=== PATIENT | female | born 1960 | race Two or more races ===

== ENCOUNTER → 2020-01-07 10:04 | Outpatient (BNVA) | payer OTHER, SELFPAY | PROVIDERS: Visit Provider Dietitian, Registered | DX: Z76.89 Persons encountering health services in other specified circumstances (principal) ==

== ENCOUNTER → 2020-01-07 10:04 | Outpatient (BNVA) | payer OTHER, SELFPAY | PROVIDERS: Visit Provider Dietitian, Registered | DX: E11.65 Type 2 diabetes mellitus with hyperglycemia (principal); K21.9 Gastro-esophageal reflux disease without esophagitis ==

== ENCOUNTER → 2020-02-26 10:14 | Outpatient (BNVA) | payer OTHER, SELFPAY | PROVIDERS: Visit Provider Internal Medicine Endocrinology, Diabetes & Metabolism | DX: E11.65 Type 2 diabetes mellitus with hyperglycemia (principal); E11.21 Type 2 diabetes mellitus with diabetic nephropathy; E55.9 Vitamin D deficiency, unspecified; E66.9 Obesity, unspecified; I10 Essential (primary) hypertension; M85.80 Other specified disorders of bone density and structure, unspecified site; E78.5 Hyperlipidemia, unspecified; Z79.899 Other long term (current) drug therapy; Z79.84 Long term (current) use of oral hypoglycemic drugs | CPT/HCPCS: Q3014 ==

== ENCOUNTER → 2020-03-09 11:16 | Outpatient (BNVA) | payer OTHER, SELFPAY | PROVIDERS: Visit Provider Dietitian, Registered | DX: Z76.89 Persons encountering health services in other specified circumstances (principal) ==

== ENCOUNTER → 2020-03-12 14:54 | Outpatient (BNVA) | payer OTHER, SELFPAY | PROVIDERS: Visit Provider Nurse Practitioner | DX: K21.9 Gastro-esophageal reflux disease without esophagitis (principal); K59.00 Constipation, unspecified; K31.84 Gastroparesis; F17.210 Nicotine dependence, cigarettes, uncomplicated; Z79.899 Other long term (current) drug therapy; Z79.84 Long term (current) use of oral hypoglycemic drugs | CPT/HCPCS: 99212 ==

== ENCOUNTER 2020-03-17 07:18 | Emergency (ER) | payer OTHER, SELFPAY ==
[2020-03-17 07:22] VITALS: BP 167/77; PULSE 78; RESP 16; TEMP 37.1; O2SAT 98; BMI 29.0
[2020-03-17 08:00] VITALS: BP 139/66; PULSE 77; RESP 18; TEMP 36.9; O2SAT 100
--- NOTE | 2020-03-17 08:01 | ED.GENADULT ---
HPI - General Adult General Chief complaint: General Medical Stated complaint: CONGESTION,BACK PAIN,COUGH Time Seen by Provider: 03/17/20 08:01 Source: patient Mode of arrival: ambulatory Limitations: no limitations History of Present Illness HPI narrative: 4 days of cough and right chest pain. Feels like she has the flu Onset (ago): day(s) Severity: mild Pain Consistency: constant Related Data Home Medications Medication Instructions Recorded Confirmed albuterol sulfate 2.5 mg INHALATION Q4-6H PRN 02/26/20 02/26/20 albuterol sulfate 90 mcg/actuation 2,000,000 mcg PO Q6H PRN 02/26/20 02/26/20 aerosol inhaler blood sugar diagnostic #10 ea 02/26/20 02/26/20 clonazepam 0.5 mg tablet 0.5 mg PO BEDTIME PRN 02/26/20 02/26/20 famotidine 20 mg tablet 20 mg PO BEDTIME PRN 02/26/20 03/12/20 lancets 28 gauge #100 ea 02/26/20 02/26/20 loratadine 10 mg tablet 10 mg PO DAILY PRN 02/26/20 02/26/20 mirabegron 25 mg tablet,extended 25 mg PO DAILY 02/26/20 02/26/20 release 24 hr sertraline 100 mg tablet 0 mg PO 02/26/20 02/26/20 Previous Rx's Medication Instructions Recorded cholecalciferol (vitamin D3) 25 25 mcg PO DAILY 30 Days #30 cap 02/26/20 mcg (1,000 unit) capsule lisinopril 30 mg tablet 30 mg PO DAILY 30 Days #30 tab 02/26/20 metformin 500 mg tablet,extended 1,000 mg PO BID 30 Days #120 tab 02/26/20 release 24 hr pioglitazone 15 mg tablet 15 mg PO .Twice a day 30 Days #60 02/26/20 tab rosuvastatin 40 mg tablet 40 mg PO DAILY 30 Days #30 tab 02/26/20 Allergies Allergy/AdvReac Type Severity Reaction Status Date / Time ibuprofen [IBUPROFEN] Allergy Severe SICK TO Verified 02/26/20 10:20 MY STOMACH ciprofloxacin [From CIPRO] Allergy Intermediate SICK Verified 02/26/20 10:20 levofloxacin [From LEVAQUIN] Allergy Unknown SICK , Verified 02/26/20 10:20 nausea, dizziness x days flu vaccine Allergy Swelling Uncoded 03/12/20 14:57 Motrin AdvReac Unknown nausea, Uncoded 11/14/19 00:00 even w/ food Review of Systems Constitutional: Constitutional: Reports no additional constitutional complaints Eyes: Eyes: Reports no additional eye complaints ENT: Denies dizziness Cardiovascular: Cardiovascular: Reports no additional cardiovascular complaints Respiratory: Respiratory: Reports as per HPI Gastrointestinal: Gastrointestinal: Reports no additional gastrointestinal complaints Genitourinary: Genitourinary: Reports no additional female genitourinary complaints Musculoskeletal: Musculoskeletal: Reports no additional musculoskeletal complaints Integumentary/Breasts: Skin/Breast: Denies rash Neurologic: Reports system reviewed and no additional complaints, except as documented, Denies dizziness and Denies Sensory deficit (Neuro) Psychiatric: Psychiatric: Denies anxiety PMFSH Past Medical History Medical History (Updated 03/17/20 @ 09:33 by Kofi Cabezas MD) Diabetic 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 Dyslipidemia Hypertension Obesity (BMI 30-39.9) Osteopenia Vitamin D deficiency Surgical History (Updated 03/12/20 @ 14:57 by LAWRENCE Marie) History of esophagogastroduodenoscopy (EGD) Hx of colonoscopy Hx of foot surgery Family History Family History (Updated 03/12/20 @ 14:59 by LAWRENCE Marie) Father Heart failure Diabetes mellitus Mother Cholangiocarcinoma Diabetes mellitus Family history of hypertension Brother Lung cancer Family/Other Breast cancer Social History Social History (Updated 03/12/20 @ 15:00 by LAWRENCE Marie) Alcohol intake: current Alcohol intake frequency: holidays/special occasions only Smoking Status: Current every day smoker Tobacco Type: Cigarette Cigarettes Per Day: 12 Advance Directives: No Advance Directives Information Provided: No Physical Exam Vital Signs: Vital Signs: Last Vital Signs Temp 98.8 F 03/17/20 07:22 Pulse 78 03/17/20 08:33 Resp 16 03/17/20 07:22 BP 167/77 H 03/17/20 07:22 Pulse Ox 98 03/17/20 07:22 Body Mass Index 29.0 Const: General: healthy appearing Nutritional Appearance: average body habitus Orientation/consciousness: oriented to person and patient oriented x3 Limitations: no limitations HENMT: Head: Yes normal to inspection Ears: external ears normal General nose exam: Normal external nose present Mouth: Normal oral and palatal mucosa present and oropharynx normal Throat: Yes posterior oropharynx normal Eyes: General: appearance normal, both eyes and all related structures Neck: Other: supple Neck: Yes normal visual inspection Chest: Chest palpation & inspection: normal inspection of the chest Resp: Auscultation: clear to auscultation bilaterally Cardio: Jugular venous distension: no JVD Rate: regular rate Rhythm: regular rhythm Heart sounds: S1 normal heart sound present and S2 normal heart sound present GI: Inspection: Yes normal to inspection Palpation (GI): Soft to palpation, nontender and No hepatosplenomegaly present Auscultation: normal bowel sounds : General: Yes no CVA tenderness Back/Spine/Pelvis: Back: no CVA tenderness Skin: General skin exam: no rashes or lesions noted Neuro: General: oriented to person and patient oriented x3 Cranial nerves: Yes CN's II-XII intact bilaterally Motor exam (neuro): 5/5 motor strength present throughout Sensory Exam: No Sensory deficit (Neuro) Extrem: General: Yes normal to inspection Psych: Appearance: grossly normal Course Course Course Narrative: resting comfortably will dc home Medical Decision Making [facility] Narrative Medical decision making narrative: mild URI symptoms will check for covid Lab Data Labs: Lab Results 03/17/20 Range/Units Unknown SARS-CoV-2 (PCR) Cancelled Discharge Plan Discharge Clinical Impression: Upper respiratory infection Qualifiers: URI type: unspecified viral URI Qualified Code(s): J06.9 - Acute upper respiratory infection, unspecified Patient Disposition: Home, Self-Care Prescriptions: No Action famotidine 20 mg tablet 20 mg PO BEDTIME PRNRF: 0 loratadine 10 mg tablet 10 mg PO DAILY PRNRF: 0 sertraline 100 mg tablet 0 mg PO RF: 0 clonazepam 0.5 mg tablet 0.5 mg PO BEDTIME PRNRF: 0 albuterol sulfate 90 mcg/actuation HFA aerosol inhaler 2,000,000 mcg PO Q6H PRNRF: 0 (DME) FreeStyle Lite Strips Strip See Rx Instructions strip Not Applicable DAILY Qty: 10 RF: 0 (DME) lancets 28 gauge misc See Rx Instructions ea topical DAILY Qty: 100 RF: 0 Myrbetriq 25 mg tablet extended release 24 hr 25 mg PO DAILY RF: 0 albuterol sulfate 2.5 mg /3 mL (0.083 %) solution for nebulization 2.5 mg inhalation Q4-6H PRNRF: 0 pioglitazone 15 mg tablet 15 mg PO .Twice a day 30 Days Qty: 60 RF: 6 metformin 500 mg tablet extended release 24 hr 1,000 mg PO BID 30 Days Qty: 120 RF: 4 lisinopril 30 mg tablet 30 mg PO DAILY 30 Days Qty: 30 RF: 5 rosuvastatin 40 mg tablet 40 mg PO DAILY 30 Days Qty: 30 RF: 5 cholecalciferol (vitamin D3) 25 mcg (1,000 unit) capsule 25 mcg PO DAILY 30 Days Qty: 30 RF: 5 Referrals: [facility] [Primary Care Provider] - 2 days
--- NOTE | 2020-03-17 08:08 | XR_ITS ---
EXAMINATION: XR CHEST CLINICAL INFORMATION: Cough COMPARISON: 06/12/2019 TECHNIQUE: Frontal view of the chest was obtained. FINDINGS: No significant abnormality is noted involving the heart, lungs, mediastinum, bony thorax or soft tissues. XR/XR chest 1V IMPRESSION: No acute disease.
[2020-03-17] MEDS: Albuterol Sulfate 90 MCG 8 GM INHALER 2 PUFF INHALE (08:30)
[2020-03-17 08:33] VITALS: PULSE 78; O2SAT 97
[2020-03-18 13:34] LABS: COVID-19 Test Negative (Negative)
== END 2020-03-17 10:03 | disposition home or self-care (01) ==
PROVIDERS: Emergency Provider Emergency Medicine
DX: J06.9 Acute upper respiratory infection, unspecified (principal); R05 Cough; R07.89 Other chest pain; F17.210 Nicotine dependence, cigarettes, uncomplicated; Z20.828 Contact with and (suspected) exposure to other viral communicable diseases; Z71.6 Tobacco abuse counseling; Z79.899 Other long term (current) drug therapy
CPT/HCPCS: 71045; 87635; 94640; 99284; U0003

== ENCOUNTER 2020-04-08 08:38 | Outpatient (REF) | payer OTHER, SELFPAY | END 2020-04-08 08:39 | disposition home or self-care (01) | LOC: HO.LAB 08:38 | PROVIDERS: Visit Provider Internal Medicine | DX: Z20.828 Contact with and (suspected) exposure to other viral communicable diseases (principal) | CPT/HCPCS: 36415; C9803; U0003 ==

== ENCOUNTER 2020-04-10 20:45 | Emergency (ER) | payer OTHER, SELFPAY ==
--- NOTE | 2020-04-10 | ECG_ITS ---
Test Reason : CHEST PAIN Blood Pressure : / mmHG Vent. Rate : 073 BPM Atrial Rate : 073 BPM P-R Int : 180 ms QRS Dur : 076 ms QT Int : 372 ms P-R-T Axes : 062 036 065 degrees QTc Int : 409 ms Normal sinus rhythm Normal ECG When compared to the previous EKG of No significant changes seen Referred By: Abraham Shafer Electronically Signed By:Gaudencio Murphy
[2020-04-10 21:09] VITALS: BP 153/57; BP 180/102; PULSE 73; PULSE 82; RESP 18; TEMP 36.7; O2SAT 97; O2SAT 98; BMI 32.4
--- NOTE | 2020-04-10 21:19 | PC.NURSE ---
patient a&ox3, pt states she has anxiety chest pain from not getting her covid swab results yet, telemetry monitor applied nsr 70s, vss, ekg performed, will await provider
--- NOTE | 2020-04-10 22:25 | XR_ITS ---
EXAMINATION: XR CHEST CLINICAL INFORMATION: Chest pain COMPARISON: 03/17/2020 TECHNIQUE: Frontal view of the chest was obtained. FINDINGS: No significant abnormality is noted involving the heart, lungs, mediastinum, bony thorax or soft tissues. There has been no significant interval change when compared to the prior study. XR/XR chest 1V IMPRESSION: Unremarkable examination.
--- NOTE | 2020-04-10 22:36 | ED_ITS ---
HPI - General Adult General Chief complaint: General Medical Stated complaint: chest pain Time Seen by Provider: 04/10/20 22:24 Source: patient Mode of arrival: EMS Limitations: no limitations History of Present Illness HPI narrative: 59-year-old female known history of anxiety presented with chest pain started at 01:00 o'clock (9 hours ago) patient claimed that she suffer from anxiety problem patient has been waiting for COVID testing results all day today which making her anxious patient felt intermittent chest pain 9 hours ago that localized to her left side of chest, with no radiation, described the pain as dull pain last for 3 minutes and then go away, nothing makes the pain worse or nothing make it better, no other associated symptoms with the pain, in the past patient has been getting chest pain. Patient is a smoker and concern about her COVID status. Related Data Home Medications Medication Instructions Recorded Confirmed albuterol sulfate 2.5 mg INHALATION Q4-6H PRN 02/26/20 02/26/20 albuterol sulfate 90 mcg/actuation 2,000,000 mcg PO Q6H PRN 02/26/20 02/26/20 aerosol inhaler blood sugar diagnostic #10 ea 02/26/20 02/26/20 clonazepam 0.5 mg tablet 0.5 mg PO BEDTIME PRN 02/26/20 02/26/20 famotidine 20 mg tablet 20 mg PO BEDTIME PRN 02/26/20 03/12/20 lancets 28 gauge #100 ea 02/26/20 02/26/20 loratadine 10 mg tablet 10 mg PO DAILY PRN 02/26/20 02/26/20 mirabegron 25 mg tablet,extended 25 mg PO DAILY 02/26/20 02/26/20 release 24 hr sertraline 100 mg tablet 0 mg PO 02/26/20 02/26/20 Previous Rx's Medication Instructions Recorded cholecalciferol (vitamin D3) 25 25 mcg PO DAILY 30 Days #30 cap 02/26/20 mcg (1,000 unit) capsule lisinopril 30 mg tablet 30 mg PO DAILY 30 Days #30 tab 02/26/20 metformin 500 mg tablet,extended 1,000 mg PO BID 30 Days #120 tab 02/26/20 release 24 hr pioglitazone 15 mg tablet 15 mg PO .Twice a day 30 Days #60 02/26/20 tab rosuvastatin 40 mg tablet 40 mg PO DAILY 30 Days #30 tab 02/26/20 nitrofurantoin monohyd/m-cryst 100 mg PO Q12H 7 Days #14 cap 04/11/20 [Macrobid] Allergies Allergy/AdvReac Type Severity Reaction Status Date / Time ibuprofen [IBUPROFEN] Allergy Severe SICK TO Verified 04/10/20 21:07 MY STOMACH ciprofloxacin [From CIPRO] Allergy Intermediate SICK Verified 04/10/20 21:07 levofloxacin [From LEVAQUIN] Allergy Unknown SICK , Verified 04/10/20 21:07 nausea, dizziness x days flu vaccine Allergy Intermediate Swelling Uncoded 04/10/20 21:07 Motrin AdvReac Intermediate nausea, Uncoded 04/10/20 21:07 even w/ food Review of Systems Review of Systems: All other systems are reviewed and are negative Constitutional: Reports as per HPI and Reports no additional constitutional complaints Eyes: Reports as per HPI and Reports no additional eye complaints Reports system reviewed and no additional complaints, except as documented Cardiovascular: Reports as per HPI and Reports no additional cardiovascular complaints Respiratory: Reports as per HPI and Reports no additional respiratory complaints Gastrointestinal: Reports as per HPI and Reports no additional gastrointestinal complaints Genitourinary: Reports no additional female genitourinary complaints Musculoskeletal: Reports no additional musculoskeletal complaints Skin/Breast: Reports system reviewed and no additional complaints, except as docu Psychiatric: Reports no additional psychiatric complaints Endocrine: Reports no additional endocrine complaints Hematologic/Lymphatic: Reports no additional hematologic/lymphatic complaints Allergic/Immunologic: Reports no additional allergic/immunologic complaints Reports system reviewed and no additional complaints, except as documented and Reports Abnormal speech present [facility] Past Medical History Medical History Bronchitis Diabetic 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 Dyslipidemia Hypertension Obesity (BMI 30-39.9) Osteopenia Vitamin D deficiency Surgical History History of esophagogastroduodenoscopy (EGD) Hx of colonoscopy Hx of foot surgery Family History Family History Father Heart failure Diabetes mellitus Mother Cholangiocarcinoma Diabetes mellitus Family history of hypertension Brother Lung cancer Family/Other Breast cancer Social History Social History Alcohol intake: current Alcohol intake frequency: holidays/special occasions only Smoking Status: Current every day smoker Tobacco Type: Cigarette Cigarettes Per Day: 12 Use of substances other than those prescribed or required for medical reasons: No Advance Directives: No Physical Exam Vital Signs: Vital Signs: Last Vital Signs Temp 98.3 F 04/10/20 23:16 Pulse 80 04/10/20 23:16 Resp 18 04/10/20 23:16 BP 143/60 H 04/10/20 23:16 Pulse Ox 98 04/10/20 23:16 Body Mass Index 32.4 Vital signs have been reviewed as normal and appeared to be correct. Blood p ressure in the high range. Heart rate normal. Respiration rate normal. Temperature normal. Oxygen saturation normal. Appearance: Alert. Oriented X3. No acute distress, appears anxious. Head: Normal external exam. Normocephalic. Atraumatic. No Monzon signs noted. No raccoon eyes noted Eyes: PERRLA. EOMI. Conjunctiva and sclera normal. Eyelids normal. ENT: EAC normal. TM's Normal. Pharynx normal. Uvula midline. Moist mucous membranes. No trismus noted. No drooling noted. No muffled voice noted. Neck: Normal inspection. Neck supple. FROM. No adenopathy. Thyroid Normal. No meningeal signs. No neck mass noted. CVS: Normal heart rate and rhythm. Heart sound normal. No murmurs noted. Pulses normal throughout. Respiratory: No respiratory distress. Painless inspiration. Breath sounds normal. No wheezes/rales/rhonchi noted. Chest nontender. No accessory muscle usage noted or decreased air movement noted. Abdomen: Soft and nontender. Bowel sounds normal in all 4 quadrants. No distention noted. No organomegaly noted. No visible injury noted. Back: No CVA tenderness. Full range of motion noted. Skin: Skin warm and dry. Normal skin color. Normal skin turgor. No rashes/lesions/lacerations noted. Extremities: No lower extremity edema. Extremities exhibit normal range of motion. Extremities nontender. Neuro: Oriented X 3. No motor deficit. No sensory deficit. Reflexes normal. Course Course Course Narrative: 59-year-old female presented with symptoms likely related to patient's anxiety. COVID test pending Patient has no UTI symptoms did not provide urine sample today. Medical Decision Making Lab Data Result diagrams: 04/10/20 23:15 04/10/20 23:15 Labs: Lab Results 04/10/20 04/10/20 04/10/20 Range/Units 23:15 23:15 23:15 WBC 9.1 (4.8-10.8) X10*3/uL RBC 3.95 L (4.20-5.50) X10*6/uL Hgb 13.2 (12.0-16.0) g/dl Hct 40.5 (37-47) % MCV 102.5 H (80-98) fL MCH 33.4 H (27.0-33.0) pg MCHC 32.6 (31.0-35.0) g/dl RDW 12.2 (11.0-16.0) % Plt Count 244 (160-400) X10*3/uL MPV 8.9 L (9.4-12.3) fL Immature Gran % (Auto) 0.2 (0.0-0.4) % Neut % (Auto) 66.5 (45-73) % Lymph % (Auto) 25.8 (20-40) % [place] % (Auto) 5.2 (2-11) % Eos % (Auto) 2.0 (0-4) % Baso % (Auto) 0.3 (0-2) % Lymph # (Auto) 2.4 (1.2-4.9) X10*3/uL [place] # (Auto) 0.5 (0.1-1.2) X10*3/uL Eos # (Auto) 0.2 (0.0-0.4) X10*3/uL Baso # (Auto) 0.0 (0.0-0.2) X10*3/uL Abs Immat Gran (auto) 0.02 (0.00-0.03) X10*3/uL Absolute Neuts (auto) 6.1 (2.0-8.3) X10*3/uL Absolute Nucleated RBC 0.000 (0.0-0.012) X10*3/uL Nucleated RBC % (auto) 0.0 (0.0-0.2) /100WBC Sodium 141 (135-145) mmol/L Potassium 4.2 (3.3-5.1) mmol/l Chloride 106 (96-108) mmol/L Carbon Dioxide 24 (22-29) mmol/L Anion Gap 15 (12-20) BUN 10 (9-16) mg/dL Creatinine 0.69 (0.5-1.4) mg/dL Estim Creat Clear Calc 87.4 Estimated GFR > 60 Random Glucose 93 (60-115) mg/dL Calcium 8.6 (8.4-10.2) mg/dL Troponin I High Sens < 3.5 (<3.5-17.0) ng/L Imaging Data Chest x-ray: Radiologist's impression: No acute pathology. Discharge Plan Discharge Clinical Impression: Anxiety Patient Disposition: Home, Self-Care Instructions: Anxiety (ED) Additional Instructions: Drink plenty of fluids. Disregard prescription of Macrobid (antibiotic) do not back up the prescription, you do not need antibiotic. Prescriptions: New nitrofurantoin monohyd/m-cryst [Macrobid] 100 mg capsule 100 mg PO Q12H 7 Days Qty: 14 RF: 0 No Action famotidine 20 mg tablet 20 mg PO BEDTIME PRNRF: 0 loratadine 10 mg tablet 10 mg PO DAILY PRNRF: 0 sertraline 100 mg tablet 0 mg PO RF: 0 clonazepam 0.5 mg tablet 0.5 mg PO BEDTIME PRNRF: 0 albuterol sulfate 90 mcg/actuation HFA aerosol inhaler 2,000,000 mcg PO Q6H PRNRF: 0 (DME) FreeStyle Lite Strips Strip See Rx Instructions strip Not Applicable DAILY Qty: 10 RF: 0 (DME) lancets 28 gauge misc See Rx Instructions ea topical DAILY Qty: 100 RF: 0 Myrbetriq 25 mg tablet extended release 24 hr 25 mg PO DAILY RF: 0 albuterol sulfate 2.5 mg /3 mL (0.083 %) solution for nebulization 2.5 mg inhalation Q4-6H PRNRF: 0 pioglitazone 15 mg tablet 15 mg PO .Twice a day 30 Days Qty: 60 RF: 6 metformin 500 mg tablet extended release 24 hr 1,000 mg PO BID 30 Days Qty: 120 RF: 4 lisinopril 30 mg tablet 30 mg PO DAILY 30 Days Qty: 30 RF: 5 rosuvastatin 40 mg tablet 40 mg PO DAILY 30 Days Qty: 30 RF: 5 cholecalciferol (vitamin D3) 25 mcg (1,000 unit) capsule 25 mcg PO DAILY 30 Days Qty: 30 RF: 5 Referrals: Physician,Unknown [Primary Care Provider] - 2 days
[2020-04-10 23:16] VITALS: BP 143/60; PULSE 80; RESP 18; TEMP 36.8; O2SAT 98
--- NOTE | 2020-04-10 23:17 | PC.NURSE ---
patient remains a&ox3, labs drawn, covid swab performed, vss, receiving lead nsr, will continue to monitor.
[2020-04-10 23:27] LABS: MANUAL DIFF FLAG NO
[2020-04-10 23:39] LABS: Basophils Percent Auto 0.3 % (0-2); Eosinophils Absolute Auto 0.2 X10*3/uL (0.0-0.4); Hematocrit 40.5 % (37-47); Hemoglobin 13.2 g/dl (12.0-16.0); Imm Gran Abs Auto 0.02 X10*3/uL (0.00-0.03); Imm Gran Pct Auto 0.2 % (0.0-0.4); Lymphocytes Absolute Auto 2.4 X10*3/uL (1.2-4.9); Lymphocytes Percent Auto 25.8 % (20-40); Mean Corpuscular HGB Conc 32.6 g/dl (31.0-35.0); Mean Corpuscular Hemoglobin 33.4 pg (27.0-33.0); Mean Corpuscular Volume 102.5 fL (80-98); Mean Platelet Volume 8.9 fL (9.4-12.3); Monocytes Absolute Auto 0.5 X10*3/uL (0.1-1.2); Monocytes Percent Auto 5.2 % (2-11); Neutrophils Absolute Auto 6.1 X10*3/uL (2.0-8.3); Neutrophils Percent Auto 66.5 % (45-73); Platelet Count 244 X10*3/uL (160-400); Red Blood Count 3.95 X10*6/uL (4.20-5.50); Red Cell Distribution Width 12.2 % (11.0-16.0); White Blood Count 9.1 X10*3/uL (4.8-10.8)
[2020-04-11 00:03] LABS: Anion Gap 15 (12-20); Blood Urea Nitrogen 10 mg/dL (9-16); Calcium 8.6 mg/dL (8.4-10.2); Carbon Dioxide 24 mmol/L (22-29); Chloride 106 mmol/L (96-108); Creatinine Clr Calc Pharmacy 87.4; Estimated Glomerular Filt Rate > 60; Glucose Random 93 mg/dL (60-115); Potassium 4.2 mmol/l (3.3-5.1); Sodium 141 mmol/L (135-145)
[2020-04-11 00:08] LABS: Troponin-I High Sensitivity < 3.5 ng/L (<3.5-17.0)
[2020-04-11 01:34] LABS: Influenza A PCR NEGATIVE (Negative); Influenza B PCR NEGATIVE (Negative); Resp Syncy Virus RNA Qual PCR NEGATIVE (Negative); SARS COV2 PCR INHOUSE NEGATIVE (Negative)
== END 2020-04-11 01:35 | disposition home or self-care (01) ==
PROVIDERS: Emergency Provider Emergency Medicine
DX: R07.9 Chest pain, unspecified (principal); F41.1 Generalized anxiety disorder; F43.0 Acute stress reaction; I10 Essential (primary) hypertension; E11.9 Type 2 diabetes mellitus without complications; F17.210 Nicotine dependence, cigarettes, uncomplicated; Z20.828 Contact with and (suspected) exposure to other viral communicable diseases; Z71.6 Tobacco abuse counseling
CPT/HCPCS: 0241U; 36415; 71045; 80048; 84484; 85025; 93005; 99284

== ENCOUNTER 2020-04-14 08:56 | Outpatient (REF) | payer OTHER, SELFPAY ==
[2020-04-14 13:47] LABS: Hematocrit 43.2 % (37-47); Hemoglobin 13.9 g/dl (12.0-16.0); Mean Corpuscular HGB Conc 32.2 g/dl (31.0-35.0); Mean Corpuscular Hemoglobin 33.1 pg (27.0-33.0); Mean Corpuscular Volume 102.9 fL (80-98); Mean Platelet Volume 9.1 fL (9.4-12.3); Platelet Count 260 X10*3/uL (160-400); Red Cell Distribution Width 12.3 % (11.0-16.0); White Blood Count 6.5 X10*3/uL (4.8-10.8)
[2020-04-14 14:38] LABS: Alanine Aminotransferase 17 U/L (0-31); Albumin Level 4.2 g/dL (3.5-5.0); Alkaline Phosphatase 60 U/L (39-117); Anion Gap 14 (12-20); Aspartate Amino Transferase 17 U/L (5-31); Bilirubin Total 0.3 mg/dL (0.0-1.0); Blood Urea Nitrogen 15 mg/dL (9-16); Calcium 8.9 mg/dL (8.4-10.2); Carbon Dioxide 25 mmol/L (22-29); Chloride 107 mmol/L (96-108); Cholesterol 144 mg/dL; Estimated Glomerular Filt Rate > 60; Glucose Fasting 104 mg/dL (60-99); HDL Cholesterol 58 mg/dL; LDL Cholesterol Calculated 67 mg/dl; Potassium 4.4 mmol/l (3.3-5.1); Sodium 142 mmol/L (135-145); Total Protein 6.9 g/dL (6.5-8.0); Triglycerides 95 mg/dL
[2020-04-14 14:46] LABS: Vitamin D 25-OH Total 46.9 ng/mL (>30)
[2020-04-14 14:48] LABS: TSH reflex Free T4 1.76 mIU/mL (0.32-4.0)
[2020-04-14 14:54] LABS: Estimated Average Glucose 120 mg/dL; Hemoglobin A1c % 5.8 %
[2020-04-14 15:06] LABS: Vitamin B12 332 pg/mL (200-900)
[2020-04-14 15:06] LABS: Creatinine Urine 93.48 mg/dL; Microalbum/Creatinine Ratio Ur 489.9 ug/mg cr
[2020-04-15 09:53] LABS: LDL Cholesterol Direct 60 mg/dL (<100)
== END 2020-04-14 08:57 | disposition home or self-care (01) ==
LOC: HO.10HDL 08:56
PROVIDERS: Absent Provider Emergency Medicine; Visit Provider Internal Medicine Endocrinology, Diabetes & Metabolism
DX: E11.8 Type 2 diabetes mellitus with unspecified complications (principal); E78.2 Mixed hyperlipidemia; F32.9 Major depressive disorder, single episode, unspecified; I10 Essential (primary) hypertension; J44.9 Chronic obstructive pulmonary disease, unspecified; K21.9 Gastro-esophageal reflux disease without esophagitis; N32.81 Overactive bladder
CPT/HCPCS: 36415; 80053; 80061; 82043; 82306; 82607; 83036; 83721; 84443; 85027

== ENCOUNTER 2020-05-26 14:58 | Emergency (ER) | payer OTHER, SELFPAY | END 2020-05-26 15:50 | disposition left against medical advice (07) | PROVIDERS: Emergency Provider Emergency Medicine | DX: R07.9 Chest pain, unspecified (principal) ==

== ENCOUNTER 2020-06-04 08:36 | Outpatient (REF) | payer OTHER, SELFPAY ==
--- NOTE | ~2020-06-04 | MR_ITS ---
EXAMINATION: MR SHOULDER WITHOUT CONTRAST, RIGHT CLINICAL INFORMATION: Pain weakness-right anterior. Osteopenia, htn dm fibro. COMPARISON: None TECHNIQUE: MRI of the shoulder without contrast was performed on a high-field scanner. FINDINGS: ROTATOR CUFF: Moderate generalized rotator cuff tendinosis is most pronounced at the supraspinatus. A 0.8 cm (AP) interstitial tear involves one-third of the tendon thickness and does not appear to extend through the articular or bursal lamellae. No additional rotator cuff tears. No muscle atrophy or fatty infiltration. BICEPS: Normal. CORACOACROMIAL ARCH: The undersurface of the acromion is hooked with a small anterolateral subacromial spur. There is [id number]-hr-ysuxrv acromioclavicular osteoarthritis with prominent undersurface osteophytes that produce mild mass effect upon the myotendinous junction of the supraspinatus. There is a pyiqv-zn-wpgtyenh volume of fluid in the subacromial-subdeltoid and subcoracoid bursa. LABRUM/CAPSULE: A small focus of fluid signal is present in the posterosuperior labrum, most consistent with a tear. The joint capsule is thickened and edematous at the rotator interval involving the coracohumeral and superior glenohumeral ligaments. The axillary pouch is nondistended. GLENOHUMERAL JOINT/MARROW: Small marginal osteophytes are present at the glenoid and humeral head. There is mild nonuniform articular cartilage loss at the glenoid posterosuperiorly and at the humeral head medially. Small glenohumeral joint effusion. No fracture or malalignment. Subcortical edema signal at the greater tuberosity is reactive to the rotator cuff tendinosis. MR/MR shoulder RT wo con IMPRESSION: 1. Moderate generalized rotator cuff tendinosis with a small 0.8 cm interstitial partial tear of the supraspinatus tendon. No larger rotator cuff tears. 2. Cbgzpgsi-ba-kmpgyc acromioclavicular osteoarthritis with prominent undersurface osteophytes as well as a hooked acromial undersurface with a small anterolateral subacromial spur, both of which predispose to subacromial impingement. There is ezmn-iy-xtsywdzu associated subacromial-subdeltoid bursitis. 3. Capsular thickening and edema at the glenohumeral joint, most notably at the rotator interval. While nonspecific, this can be seen with adhesive capsulitis provided the appropriate clinical history. 4. Mild glenohumeral osteoarthritis with a tear of the posterosuperior labrum.
== END 2020-06-04 08:37 | disposition home or self-care (01) ==
LOC: HO.MRI 08:36
PROVIDERS: Visit Provider Nurse Practitioner Primary Care
DX: M25.511 Pain in right shoulder (principal)
CPT/HCPCS: 73221

== ENCOUNTER 2020-06-22 10:45 | Outpatient (REF) | payer OTHER, SELFPAY ==
--- NOTE | ~2020-06-22 | XR_ITS ---
EXAMINATION: XR SHOULDER, RIGHT CLINICAL INFORMATION: Pain in right shoulder COMPARISON: None TECHNIQUE: 3 views of the right shoulder FINDINGS: There is moderate osteoarthritis of the acromioclavicular joint. The glenohumeral joint is normal. The surrounding bone and soft tissues are normal. XR/XR shoulder RT min 2V IMPRESSION: Moderate osteoarthritis of the acromioclavicular joint.
== END 2020-06-22 10:46 | disposition home or self-care (01) ==
LOC: HO.HOSX 10:45
PROVIDERS: Visit Provider Orthopaedic Surgery
DX: M25.511 Pain in right shoulder (principal)
CPT/HCPCS: 73030

== ENCOUNTER → 2020-06-23 12:44 | Outpatient (BNVA) | payer OTHER, SELFPAY | PROVIDERS: PCP Nurse Practitioner Primary Care; Visit Provider Orthopaedic Surgery | DX: M75.01 Adhesive capsulitis of right shoulder (principal) | CPT/HCPCS: 99202 ==

== ENCOUNTER 2020-07-22 07:39 | Outpatient (REF) | payer OTHER, SELFPAY ==
--- NOTE | ~2020-07-22 | CT_ITS ---
EXAMINATION: CT CHEST SCREENING CLINICAL INFORMATION: Nicotine dependence. COMPARISON: Chest x-ray 04/10/2020 TECHNIQUE: Multidetector volumetric CT imaging of the chest is performed without contrast using low dose technique. Additional 2D coronal and sagittal reformatted images and axial 3D maximum intensity projection (MIP) images are generated on the CT workstation. This CT examination was performed using dose optimization techniques as appropriate, variously including the following: *Automated exposure control *Adjustment of mA and/or kV according to patient size (this includes techniques or standardized protocols for targeted exams where dose is matched to indication/reason for exam; i.e. extremities or head) *Use of iterative reconstruction technique DLP: 50 mGy-cm FINDINGS: LUNGS: The lungs are well expanded and clear of acute pneumonic process. There is a tiny cyst right upper lobe, axial image 9/4. There is a 4 mm thickening left major fissure, axial image image 30/4. There is 2 mm subpleural nodule left lower lobe, axial image 28/4. MEDIASTINUM: Thyroid lobes are symmetrical and normal. The central trachea and the bronchi are widely patent. Heart size and the great vessels are normal caliber. There is a 7 mm precarinal lymph node. No additional lymph nodes seen. No pericardial effusion. PLEURA: There is no pleural effusion. No pleural mass or thickening. AXILLA: There are small shotty lymph nodes in bilateral axilla. UPPER ABDOMEN: Visualized liver, spleen, pancreas and bilateral adrenal glands are unremarkable. No radiopaque gallstones. OSSEOUS STRUCTURES: There is mild ventral spondylosis dorsal spine. No lytic or sclerotic process. CT/CT lung screening IMPRESSION: Small 4 mm and less pulmonary nodules. No acute consolidation or abnormal mediastinal or axillary lymphadenopathy. ASSESSMENT: Lung-RADS category 2: Benign RECOMMENDATION: Low-dose annual CT chest exam.
[2020-07-22 08:50] LABS: Albumin Level 4.3 g/dL (3.5-5.0); Anion Gap 14 (12-20); Blood Urea Nitrogen 13 mg/dL (9-16); Calcium 9.6 mg/dL (8.4-10.2); Carbon Dioxide 26 mmol/L (22-29); Chloride 105 mmol/L (96-108); Estimated Glomerular Filt Rate > 60; Magnesium 1.6 mg/dL (1.6-2.6); Phosphorus 3.4 mg/dL (2.7-4.5); Potassium 4.4 mmol/L (3.3-5.1); Sodium 141 mmol/L (135-145)
[2020-07-22 09:10] LABS: Renal w Reflex Lab Use Only Order verified
[2020-07-22 09:20] LABS: Glucose Urine UA NEG (NEG); Leukocyte Esterase Urine NEG (NEG); Nitrite Urine NEG (NEG); Renal w Reflex-LAB USE ONLY Order Verified; Specific Gravity - Urine 1.025 (1.005-1.025); Urine Blood NEG (NEG); Urine Ketones NEG (NEG); Urine Protein 1+ MG/DL (NEG-TRACE)
[2020-07-22 09:21] LABS: Appearance Urine CLEAR; Color Urine YELLOW
[2020-07-22 09:30] LABS: Mucus Urine 1+ /LPF; RBC Urine 0-2 /HPF (0); Squamous Epithelial Cell Urine 1+ /LPF; WBC Urine 0-2 /HPF (0-4)
[2020-07-22 09:42] LABS: Creatinine Urine 138.29 mg/dL; Microalbum/Creatinine Ratio Ur 312.3 ug/mg cr; Protein/Creatinine Ratio, Ur 0.44 (<0.2); Total Protein Urine Random 61 mg/dL (<12)
== END 2020-07-22 07:40 | disposition home or self-care (01) ==
LOC: HO.CT 07:39
PROVIDERS: Absent Provider Internal Medicine Nephrology; PCP Nurse Practitioner Primary Care; Visit Provider Surgery
DX: Z12.2 Encounter for screening for malignant neoplasm of respiratory organs (principal); F17.210 Nicotine dependence, cigarettes, uncomplicated; I10 Essential (primary) hypertension; R80.9 Proteinuria, unspecified; E11.21 Type 2 diabetes mellitus with diabetic nephropathy
CPT/HCPCS: 36415; 71271; 80051; 81001; 81003; 82040; 82043; 82310; 82565; 83735; 84100; 84156; 84520

== ENCOUNTER 2020-07-29 11:07 | Outpatient (REF) | payer OTHER, SELFPAY ==
--- NOTE | ~2020-07-29 | US_ITS ---
EXAMINATION: US EXTRACRANIAL CAROTID DUPLEX, BILATERAL CLINICAL INFORMATION: This is a 60-year-old female with hyperlipidemia. Hypertension. Cervicalgia. Carotid artery disease. COMPARISON: None TECHNIQUE: Real-time ultrasound and Doppler techniques (integrating B-mode 2-D vascular images, Doppler spectral analysis and color-flow Doppler imaging) were utilized to interrogate the extracranial carotid arteries, the vertebral arteries and proximal subclavian arteries bilaterally. The degree of stenosis is determined by criteria similar to NASCET. FINDINGS: Right Side: 1. There is minimal atherosclerotic plaque seen in the bifurcation/proximal ICA region. 2. The common carotid artery PSV proximally is 122 cm/s and distally 76 cm/s. 3. The proximal internal carotid artery velocities are 56 cm/s systolic and 13 cm/s diastolic. 4. The proximal external carotid artery PSV is 116 cm/s. 5. The vertebral artery shows antegrade flow. 6. The subclavian artery waveforms are normal. Left Side: 1. There is normal atherosclerotic plaque seen in the bifurcation/proximal ICA region. 2. The common carotid artery PSV proximally is 101 cm/s and distally 19 cm/s. 3. The proximal internal carotid artery velocities are 66 cm/s systolic and 18 cm/s diastolic. 4. The proximal external carotid artery PSV is 111 cm/s. 5. The vertebral artery shows antegrade flow. 6. The subclavian artery waveforms are normal. US/US carotid duplex BI IMPRESSION: 1. RIGHT: Minimal, non-hemodynamically significant stenosis of the proximal right internal carotid artery corresponding to a 0-49% stenosis by velocity criteria. 2. LEFT: Minimal, non-hemodynamically significant stenosis of the proximal left internal carotid artery corresponding to a 0-49% stenosis by velocity criteria.
== END 2020-07-29 11:08 | disposition home or self-care (01) ==
LOC: HO.US 11:07
PROVIDERS: Visit Provider Nurse Practitioner Primary Care
DX: E78.2 Mixed hyperlipidemia (principal); I10 Essential (primary) hypertension; M54.2 Cervicalgia
CPT/HCPCS: 93880

== ENCOUNTER 2020-08-07 09:00 | Outpatient (RCR) | payer OTHER, SELFPAY ==
--- NOTE | 2020-07-08 10:59 | MHC.PT.EP ---
[facility] [place] Office [place] Office [place] Office [address] Dena Emerson [address] [phone] F: [phone] F: [phone] F: [phone] F: [phone] Physical Therapy Plan of Care Date of Evaluation: 07/08/20 Date of Surgery: Diagnosis: Adhesive Capsulitis of R shoulder Assessment: 60 y/o RHD female referred to PT with adhesive capsulitis. She reports pain is limiting her from doing 'everything' and specifically sleeping through the night, reaching, lifting, dressing, and grooming. Her son is her [employer]ER and he performs personnel clerks supervisor, laundry, cooking, and assists with dressing/bathing/grooming intermittently. Examination shows decreased cervical AROM, decreased B shoulder AROM (R shoulder more limited), decreased R shoulder abduciton/flexion PROM with empty end-feel, increased pain, decreased strength, and impaired postural awareness. Recommend PT 2x/week for 5 weeks to address impairments, implement HEP, and optimize functional mobiltiy. POC to include STM/IASTM, postural training, shoulder A/AAROM, scapular/RTC strengthening, taping, modalities as needed for pain, and functional mobility. Frequency and Duration: The patient will be seen 2x/week for 5 weeks Short Term Goals: 3 weeks: 1. I with HEP 2. Improve R shoulder AROM flexion to 140 and abduction to 90 Nursing Home Goals: 5 weeks: 1. Pt will be I with HEP and self management of sx 2. Pt will be able to sleep through the night with pain < 3/10 3. Pt will demonstrate shoulder AROM WFL to assist with grooming Treatment Plan: Modalities to reduce pain, spasms and effusion. Manual therapy to restore motion and function. Therapeutic exercise to improve strength and flexibility. Neuromuscular re-education for posture and balance. Therapeutic activities to return to functional activities of daily living. Electronically signed by: Merly Strauss PT Please sign and return to therapist. Thank you for your referral.
--- NOTE | 2020-11-05 10:51 | MHC.PT.DC ---
[facility] [place] Office [place] Office [place] Office [address] Dena Emerson [address] [phone] F: [phone] F: [phone] F: [phone] F: [phone] Physical Therapy Discharge Report Diagnosis: Adhesive Capsulitis of R shoulder Date of Surgery: Date of Evaluation: 07/08/20 Date of Discharge: 11/05/20 Treatments to Date: 8 Cancellations to Date: 0 No Shows to Date: 0 Discharge Status: Improved Function Independent with HEP Discharge Summary: Pt appropriate for d/c secondary to independence with HEP and improved shoulder ROM and function. Electronically signed by: Merly Strauss PT Please sign and return to therapist. Thank you for your referral.
== END 2020-11-05 10:52 | disposition home or self-care (01) ==
LOC: HO.PT 09:00
PROVIDERS: PCP Nurse Practitioner Primary Care; Visit Provider Orthopaedic Surgery
DX: M75.01 Adhesive capsulitis of right shoulder (principal)
CPT/HCPCS: 97110; 97140; 97162

== ENCOUNTER → 2020-09-24 15:49 | Outpatient (BNVA) | payer OTHER, SELFPAY | PROVIDERS: PCP Nurse Practitioner Primary Care; Visit Provider Nurse Practitioner | DX: Z13.89 Encounter for screening for other disorder (principal) | CPT/HCPCS: Q3014 ==

== ENCOUNTER 2020-11-09 08:15 | Day surgery (SDC) | payer OTHER, SELFPAY ==
[2020-11-02 11:34] VITALS: BMI 32.4
--- NOTE | 2020-11-06 08:25 | P.CONAN_ITS ---
Documented by User: Gabriela Jamesney 11/06/20 08:26 HPI - Anesthesia Eval Consult details Narrative: 60yo F for Colonoscopy PMFSH Active Problems Active Problems: All Active Problems (Updated 11/02/20 @ 11:25 by Aleja Kingston) Type 2 diabetes mellitus with hyperglycemia (Acute) GERD (gastroesophageal reflux disease) (Acute) Constipation (Acute) Gastroparesis (Acute) Adhesive capsulitis of right shoulder (Acute) Colon cancer screening (Acute) Family history of polyps in the colon (Acute) Obesity (BMI 30-39.9) (Acute) Vitamin D deficiency (Acute) Osteopenia (Acute) Dyslipidemia (Acute) Hypertension (Acute) Diabetic 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 (Acute) Past Medical History Medical History Bronchitis Diabetes Diabetic 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 Dyslipidemia GERD (gastroesophageal reflux disease) Hypertension Obesity (BMI 30-39.9) Osteopenia Vitamin D deficiency Family History Family History Father Heart failure Diabetes mellitus Mother Cholangiocarcinoma Diabetes mellitus Family history of hypertension Brother Lung cancer Family/Other Breast cancer Surgical History Surgical History History of esophagogastroduodenoscopy (EGD) Hx of colonoscopy Hx of foot surgery Social History Social History Alcohol intake: current Alcohol intake frequency: holidays/special occasions only Patient Tobacco Use Status: Current everyday Tobacco user Cigarettes Per Day: 12 Advance Directives Information Provided: No Meds Allergies Allergy/AdvReac Type Severity Reaction Status Date / Time ibuprofen [IBUPROFEN] Allergy Severe SICK TO Verified 09/24/20 15:50 MY STOMACH ciprofloxacin [From CIPRO] Allergy Intermediate SICK Verified 09/24/20 15:50 levofloxacin [From LEVAQUIN] Allergy Intermediate SICK , Verified 11/02/20 11:26 nausea, dizziness x days flu vaccine Allergy Intermediate Swelling Uncoded 04/10/20 21:07 Home Medications Medication Instructions Recorded Confirmed Last Taken Type albuterol sulfate 2.5 mg INHALATION Q4-6H PRN 02/26/20 11/02/20 Unknown History albuterol sulfate 90 mcg/actuation 90 mcg PO Q6H PRN 02/26/20 11/02/20 Unknown History aerosol inhaler blood sugar diagnostic #10 ea 02/26/20 02/26/20 Unknown History clonazepam 0.5 mg tablet 0.5 mg PO BEDTIME PRN 02/26/20 11/02/20 Unknown History lancets 28 gauge #100 ea 02/26/20 02/26/20 Unknown History loratadine 10 mg tablet 10 mg PO DAILY PRN 02/26/20 11/02/20 Unknown History sertraline 100 mg tablet 200 mg PO DAILY 02/26/20 11/02/20 Unknown History amlodipine 5 mg tablet 5 mg PO BID 09/24/20 11/02/20 Unknown History famotidine 20 mg tablet 20 mg PO BEDTIME 09/24/20 11/02/20 Unknown History lisinopril 30 mg tablet 40 mg PO DAILY tab 09/24/20 11/02/20 Unknown History nystatin 100,000 unit/gram topical 1 appl TOPICAL BID 09/24/20 11/02/20 Unknown History cream pioglitazone 15 mg tablet 15 mg PO BID 11/02/20 11/02/20 Unknown History Exam Exam Date and Time: November 06, 2020 0825 Height,Weight and Vital Signs: Height 5 ft 3 in Weight 83.007 kg Pertinent Lab Results Pertinent Lab Results: Laboratory Tests 04/14/20 07/22/20 08:35 07:52 WBC 6.5 Hgb 13.9 Hct 43.2 Plt Count 260 Sodium 141 Potassium 4.4 Chloride 105 Carbon Dioxide 26 BUN 13 Creatinine 0.76 Narrative Narrative: EKG 04/2020 Vent. Rate : 073 BPM ? ? Atrial Rate : 073 BPM ?? P-R Int : 180 ms? QRS Dur : 076 ms ? ? QT Int : 372 ms ? ? ? P-R-T Axes : 062 036 065 degrees ?? QTc Int : 409 ms ? Normal sinus rhythm Normal ECG When compared to the previous EKG of No significant changes seen Assessment and Plan Assessment Anesthesia Assessment: Chart Reviewed Documented by User: Marycarmen Jama MD 11/09/20 09:01 [facility] Past Medical History Medical History Bronchitis Diabetes Diabetic 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 Dyslipidemia GERD (gastroesophageal reflux disease) Hypertension Obesity (BMI 30-39.9) Osteopenia Vitamin D deficiency Family History Family History Father Heart failure Diabetes mellitus Mother Cholangiocarcinoma Diabetes mellitus Family history of hypertension Brother Lung cancer Family/Other Breast cancer Surgical History Surgical History History of esophagogastroduodenoscopy (EGD) Hx of colonoscopy Hx of foot surgery History of Problems with Anesthesia: No Social History Social History Alcohol intake: current Alcohol intake frequency: holidays/special occasions only Patient Tobacco Use Status: Current everyday Tobacco user Cigarettes Per Day: 12 Advance Directives Information Provided: No Meds Allergies Allergy/AdvReac Type Severity Reaction Status Date / Time ibuprofen [IBUPROFEN] Allergy Severe SICK TO Verified 09/24/20 15:50 MY STOMACH ciprofloxacin [From CIPRO] Allergy Intermediate SICK Verified 09/24/20 15:50 levofloxacin [From LEVAQUIN] Allergy Intermediate SICK , Verified 11/02/20 11:26 nausea, dizziness x days flu vaccine Allergy Intermediate Swelling Uncoded 04/10/20 21:07 Home Medications Medication Instructions Recorded Confirmed Last Taken Type albuterol sulfate 2.5 mg INHALATION Q4-6H PRN 02/26/20 11/02/20 Unknown History albuterol sulfate 90 mcg/actuation 90 mcg PO Q6H PRN 02/26/20 11/02/20 Unknown History aerosol inhaler blood sugar diagnostic #10 ea 02/26/20 02/26/20 Unknown History clonazepam 0.5 mg tablet 0.5 mg PO BEDTIME PRN 02/26/20 11/02/20 Unknown History lancets 28 gauge #100 ea 02/26/20 02/26/20 Unknown History loratadine 10 mg tablet 10 mg PO DAILY PRN 02/26/20 11/02/20 Unknown History sertraline 100 mg tablet 200 mg PO DAILY 02/26/20 11/02/20 Unknown History amlodipine 5 mg tablet 5 mg PO BID 09/24/20 11/02/20 Unknown History famotidine 20 mg tablet 20 mg PO BEDTIME 09/24/20 11/02/20 Unknown History lisinopril 30 mg tablet 40 mg PO DAILY tab 09/24/20 11/02/20 Unknown History nystatin 100,000 unit/gram topical 1 appl TOPICAL BID 09/24/20 11/02/20 Unknown History cream pioglitazone 15 mg tablet 15 mg PO BID 11/02/20 11/02/20 Unknown History Exam Airway Mallampati Class: II TM Dist: >3cm Neck ROM: Full Denture: Upper Loose/Missing/Broken Teeth: Yes and Upper Heart: RRR Lungs: CTA Assessment and Plan Assessment Anesthesia Assessment: Anesthesia Plan Discussed Final Anesthetic Review History of Problems with Anesthesia: No NPO: Yes ASA Class: II Final Preanesthetic Review: Meds/Allgs Chart Reviewed, Consent Obtained/Reviewed and Anes Risks/Benef Reviewed Patient Risk: Low Procedure Risk: Low Anesthetic Plan Anesthetic Plan: MAC: Disposition: Standard PACU
[2020-11-09 08:38] VITALS: BP 129/61; PULSE 75; RESP 18; TEMP 35.9; O2SAT 95
--- NOTE | 2020-11-09 08:41 | MHC.SHP ---
Pre-Procedural Eval Section A Date of Service: 11/09/20 The patient is an INPATIENT: No The History & Physical has been completed within 30 days and I have reviewed it.: No Section B Chief Complaint: screening Details of Present Illness: Colon Cancer screening, family history of colon polyps Relevant Family History (Specify if Yes): Yes Present Medications: see Short Stay Collaborative assessment Medical History: Significant History (Bronchitis Diabetic 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 Dyslipidemia Hypertension Obesity (BMI 30-39.9) Osteopenia Vitamin D deficiency) History of Previous Operations: Relevant previous surgery/procedure and date(s) (History of esophagogastroduodenoscopy (EGD) Hx of colonoscopy Hx of foot surgery) Allergies: Allergies Allergy/AdvReac Type Severity Reaction Status Date / Time ibuprofen [IBUPROFEN] Allergy Severe SICK TO Verified 09/24/20 15:50 MY STOMACH ciprofloxacin [From CIPRO] Allergy Intermediate SICK Verified 09/24/20 15:50 levofloxacin [From LEVAQUIN] Allergy Intermediate SICK , Verified 11/02/20 11:26 nausea, dizziness x days flu vaccine Allergy Intermediate Swelling Uncoded 04/10/20 21:07 Review of Systems Sugical H&P ROS: Negative: Constitution, Cardiovascular and Gastrointestinal and Yes, Specify: Respiratory (chronic cough) Exam Surgical H&P Exam: Normal: Heart, Normal: Lungs, Normal: Extremities and Normal: Abdomen Plan Diagnosis/Plan: Unchanged I have reviewed the history and physical and performed a pertinent physical examination on my patient. No changes have occurred unless specified.
[2020-11-09 08:44] LABS: Glucose, Whole Blood 133 mg/dL (60-115)
[2020-11-09] MEDS: Lactated Ringers 1,000 ML 100 ML IVCONT (08:50)
--- NOTE | 2020-11-09 09:30 | PM.OP ---
Brief Operative Note Date of Service: 11/09/20 Pre-op diagnosis: Colon cancer screening Post-op diagnosis: other (Colon polyps, diverticulosis, hemorrhoids) Procedure: COLONOSCOPY TILL CECUM WITH BIOPSIES AND SNARE POLYPECTOMY Consent: Indications for the procedure and potential complications of bleeding, perforation, reaction to medications and missed diagnosis were discussed with the patient and informed consent was obtained. Instrument: Olympus PCF H 190 L variable stiffness pediatric colonoscope Monitoring: Vital signs and clinical assessment, intermittent blood pressure monitoring, continuous EKG monitoring, Pulse oximetry and Carbon Dioxide monitoring were done throughout the procedure. Colon withdrawl time was 22 minutes. Procedure: The patient was placed in the left lateral decubitis position and pre-procedure medications were administered. After a digital rectal examination of the ano-rectum, the video colonoscope was inserted into the rectum and advanced through the colon to the cecum. The colonoscope was slowly withdrawn in a retrograde panoramic fashion and the colon mucosa was carefully examined including a retroflexed view of the rectum. Findings and interventions are described below. Procedure Difficulty: Without difficulty Findings: Terminal Ileum: Not evaluated Cecum: Normal Ascending Colon: A 10 mm sessile polyp removed with a cold snare and 3-4 mm sessile polyp in the distal AC removed with a cold biopsy. Scattered diverticulosis Transverse Colon: A 10 mm sessile polyp removed with a cold snare and a 3-4 mm sessile polyp removed with the cold biopsy. Scattered diverticulosis Descending Colon: Moderate diverticulosis Sigmoid Colon: Severe diverticulosis Rectum: Normal Ano-rectum: Moderate internal hemorrhoids and perianal skin tags Colon preparation: Good Impression and Post Procedure Diagnosis: Colonoscopy Findings: Four small to medium sized polyps removed Moderate to severe diverticulosis seen in the entire colon Moderate hemorrhoids on retroflexed exam. Plan: Await pathology results Patient has an appointment on 11/30/20 in the GI Clinic with Shantel Vincent NP . Repeat Colonoscopy interval based on path results - in 3-5 years if polyps are adenomatous and due to family history of colon polyps Above findings were reviewed with the patient and colon polyps and diverticulosis handouts were given in the discharge area Surgeon: Clary Godinez MD Anesthesia: MAC (Dr Jama) Was an Weatherstrip Machine Operator used for this Procedure?: Yes Weatherstrip Machine Operator: Elian Lucero Estimated blood loss (mL): 0 Pathology: other (A- ASCENDING COLON POLYPS B- TRANSVERSE COLON POLYPS) Condition: stable Disposition: PACU
[2020-11-09 10:18] VITALS: BP 106/53; PULSE 77; RESP 18; TEMP 36.4; O2SAT 98
[2020-11-09 10:33] VITALS: BP 122/53; PULSE 68; RESP 18; O2SAT 100
--- NOTE | 2020-11-12 19:00 | W.PM.OPN ---
Operative Note Operative Note Date of Service: 11/09/20 Narrative: Pre-op diagnosis:?Colon cancer screening Post-op diagnosis:?other (Colon polyps, diverticulosis, hemorrhoids) Procedure:? COLONOSCOPY TILL CECUM WITH BIOPSIES AND SNARE POLYPECTOMY Consent: Indications for the procedure and potential complications of bleeding, perforation, reaction to medications and missed diagnosis were discussed with the patient and informed consent was obtained. Instrument: Olympus PCF H 190 L variable stiffness pediatric colonoscope Monitoring: Vital signs and clinical assessment, intermittent blood pressure monitoring, continuous EKG monitoring, Pulse oximetry and Carbon Dioxide monitoring were done throughout the procedure. Colon withdrawl time was 22 minutes. Procedure: The patient was placed in the left lateral decubitis position and pre-procedure medications were administered. After a digital rectal examination of the ano-rectum, the video colonoscope was inserted into the rectum and advanced through the colon to the cecum. The colonoscope was slowly withdrawn in a retrograde panoramic fashion and the colon mucosa was carefully examined including a retroflexed view of the rectum. Findings and interventions are described below. Procedure Difficulty: Without difficulty Findings: Terminal Ileum: Not evaluated Cecum:? Normal Ascending Colon:? A 10 mm sessile polyp removed with a cold snare and 3-4 mm sessile polyp in the distal AC removed with a cold biopsy.? Scattered diverticulosis Transverse Colon:? A 10 mm sessile polyp removed with a cold snare and a 3-4 mm sessile polyp removed with the cold biopsy.? Scattered diverticulosis Descending Colon:? Moderate diverticulosis Sigmoid Colon:? Severe diverticulosis Rectum:? Normal Ano-rectum:? Moderate internal hemorrhoids and perianal skin tags Colon preparation:? Good? Impression and Post Procedure Diagnosis: Colonoscopy Findings: Four small to medium sized polyps removed Moderate to severe diverticulosis seen in the entire colon Moderate hemorrhoids on retroflexed exam. Plan: Await pathology results Patient has an appointment on 11/30/20 in the GI Clinic with? Shantel Vincent NP? . Repeat Colonoscopy interval based on path results - in 3-5 years if polyps are adenomatous and due to family history of colon polyps Above findings were reviewed with the patient and colon polyps and diverticulosis handouts were given in the discharge area Surgeon:?Clary Godinez MD Anesthesia:?MAC (Dr Jama) Was an Paste Mixing Supervisor used for this Procedure?:?Yes Paste Mixing Supervisor:?Elian Lucero Estimated blood loss (mL):?0 Pathology:?other (A- ASCENDING COLON POLYPS? B- TRANSVERSE COLON POLYPS) Condition:?stable Disposition:?PACU
== END 2020-11-09 11:00 | disposition home or self-care (01) ==
PROVIDERS: PCP Nurse Practitioner Primary Care; Visit Provider Internal Medicine Gastroenterology
PROC: 0DJD8ZZ Inspection of Lower Intestinal Tract, Via Natural or Artificial Opening Endoscopic (ICD-10-PCS; CPT 45378; principal; 2020-11-09 09:20)
DX: Z12.11 Encounter for screening for malignant neoplasm of colon (principal); Z83.71 Family history of colonic polyps; D12.2 Benign neoplasm of ascending colon; D12.3 Benign neoplasm of transverse colon; K57.30 Diverticulosis of large intestine without perforation or abscess without bleeding; K64.8 Other hemorrhoids; K64.4 Residual hemorrhoidal skin tags; K21.9 Gastro-esophageal reflux disease without esophagitis; E11.21 Type 2 diabetes mellitus with diabetic nephropathy; I10 Essential (primary) hypertension; Z79.84 Long term (current) use of oral hypoglycemic drugs; Z79.899 Other long term (current) drug therapy; F17.210 Nicotine dependence, cigarettes, uncomplicated; Z88.8 Allergy status to other drugs, medicaments and biological substances; Z88.1 Allergy status to other antibiotic agents
CPT/HCPCS: 45385; 45380; 82947; 88305

== ENCOUNTER → 2020-11-11 07:18 | Outpatient (REF) | payer OTHER, SELFPAY ==
--- NOTE | 2020-11-11 07:23 | CA_ITS ---
Transthoracic Echocardiogram Patient (Last, First, Middle): Zee Elder T Gender: Female Date of : 1960 Age: 60 Procedure Date: 11/11/2020 Procedure Type: Transthoracic Echocardiogram Location: OP Height: 160.02 cm Weight: 77.11 kg BSA: 1.80 m2 Heart Rate: bpm BP: 120 / 80 mmHg Slip Feeder: LYDIA/TABITHA Referring MD: Thelma De Jesus MD Lathe Hand: Yovanny Reid MD Symptoms: ORTHOPNIA Study Quality: Fair ECG Rhythm: Sinus Conclusions: - 1. Normal LV systolic function with impaired relaxation filling pattern 2. Normal cardiac valvular Doppler 3. Normal RV systolic pressure 4. No pericardial effusion Findings Left Ventricle Normal left ventricular size, thickness, and systolic function. The visually estimated ejection fraction is between 60-65%. Spectral Doppler is indicative of an impaired relaxation filling pattern. E/E prime ratio is between 8 and 15 consistent with indeterminate filling pressures. Right Ventricle Normal right ventricular cavity size and systolic function. Atria Both atria are normal in size. There is no evidence of interatrial shunt. Aortic Valve Normal aortic valve structure and function. There is no aortic valve stenosis. There is no aortic valve regurgitation. Mitral Valve Likely normal mitral valve structure and function. There is trace mitral valve regurgitation. There is no mitral valve stenosis. Pulmonic Valve The pulmonic valve was not well visualized. Tricuspid Valve Likely normal tricuspid valve structure and function. There is trace tricuspid valve regurgitation. The right ventricular systolic pressure is normal. The right ventricular systolic pressure is 34 mmHg. Normal right atrial pressure. There is no evidence of pulmonary hypertension. Great Vessels All visible segments of the aorta are normal in size. The pulmonary artery was not well visualized. Venous The inferior vena cava is normal in size and collapses greater than 50% with inspiration. Pericardium/Pleural There is no evidence of pericardial effusion. Prior Study Comparison No previous study in the last 5 years for comparison Measurements 2D Linear Measurements IVSd: 0.78 0.6-0.9/0.6-1.0 cm LVIDd: 4.39 3.9-5.3/4.2-5.9 cm LVIDd Index: 2.44 2.4-3.2/2.2-3.1 cm/m2 LVIDs: 2.81 2.0-3.6 cm LVPWd: 0.80 0.7-1.1 cm Ao Root: 2.90 2.1-3.5 cm LA Diam: 3.20 2.7-3.8/3.0-4.0 cm LAIDs Index: 1.78 1.5-2.3 cm/m2 LV Mass: 133.19 67-162/88-224 g LV Mass Index: 73.99 43-95/49-115 g/m2 LVOT Diam: 2.00 3.0+(-)1.3 cm 2D Systolic Function EF 4C: 60.90 >55% EF 2C: 58.40 >55% EF BiP: 59.30 >55% Mitral Valve MV Pk E: 0.96 MV PK A: 0.86 MV Decel Time: 220.00 E/A: 1.10 E'Lateral: 9.57 E'Medial: 9.68 E/E' Med: 9.90 E/E' Lat: 10.00 PHT: 64.00 MVA PHT: 3.44 Decel [place]: 4.37 Aortic Valve AoV Pk Ankur: 1.21 AoV Mn Ankur: 0.81 AoV VTI: 0.28 AoV Pk Grad: 6.00 Aov Mn Grad: 3.00 SHILA Cont.VTI: 2.72 LVOT LVOT Pk Ankur: 0.93 LVOT Mn Ankur: 0.66 LVOT VTI: 0.24 LVOT Pk Grad: 3.00 LVOT Mn Grad: 2.00 LVOT Diam: 2.00 LVOT Area: 3.14 Diastolic Function MV Pk E: 0.96 MV Pk A: 0.86 E/A: 1.10 E'Medial: 9.68 E/E' Med: 9.90 E' Laterial: 9.57 E/E' Lat: 10.00 Right Ventricle TAPSE (mm): 2.15 Tricuspid Valve TR Pk Ankur: 2.80 TR Pk Grad: 31.00 RA Press: 3.00 RVSP: 34.00 Great Vessels Aorta Ao Root-2D: 2.90 2.0-3.7 cm Ao Asc: 2.80 2.1-3.4 cm Ao Arch: 2.90 Updated in Other Vendor System with Status of Final Yovanny Reid MD electronically signed on 11/11/2020 5:19:31 PM with status of Final
== END ==
LOC: HO.CARD 07:18
PROVIDERS: PCP General Practice; Visit Provider General Practice
DX: R06.01 Orthopnea (principal)
CPT/HCPCS: 93306

== ENCOUNTER 2020-11-25 07:29 | Emergency (ER) | payer OTHER, SELFPAY ==
--- NOTE | ~2020-11-25 | CT_ITS ---
EXAMINATION: CT HEAD WITHOUT CONTRAST CLINICAL INFORMATION: Dizziness COMPARISON: Previous head CT June 2009 TECHNIQUE: Contiguous axial imaging was performed from the skull base to vertex without intravenous administration of contrast. This CT examination was performed using dose optimization techniques as appropriate, variously including the following: *Automated exposure control *Adjustment of mA and/or kV according to patient size (this includes techniques or standardized protocols for targeted exams where dose is matched to indication/reason for exam; i.e. extremities or head) *Use of iterative reconstruction technique DLP: 661 mGy-cm FINDINGS: There is no evidence of acute intracranial hemorrhage or territorial infarction. No abnormal mass effect or midline shift is seen. Gomez to white matter differentiation is well preserved. No extra-axial fluid collections are identified. The ventricles are normal in size. There is no abnormal attenuation within the brain parenchyma. The osseous structures and soft tissues are normal. The mastoid air cells and visualized portions of the paranasal sinuses are well aerated. CT/CT head/brain wo con IMPRESSION: No acute intracranial pathology.
--- NOTE | 2020-11-25 07:31 | ED_ITS ---
HPI - Dizziness General Chief Complaint: Dizziness Stated Complaint: dizziness post eye surgery Time Seen by Provider: 11/25/20 07:31 Source: patient Mode of arrival: ambulatory Limitations: no limitations History of Present Illness HPI Narrative: cataract surgery on R eye one week ago placed on ketorolac drops - thinks they are poisoning her she feels drugged and dizzy. her symptoms started Monday a few days after her surgery. No prior vertigo. MD elicited complaint: dizziness and lightheadedness Onset (ago): day(s) (5) Timing: gradual onset and constant Severity: moderate Description: sense of movement and lightheadedness Context: other (states it is her eye drops) History of similar symptoms: No Exacerbating factors: movement/ambulation and change in body position Relieving factors: nothing Associated symptoms: nausea, malaise and weakness Related Data Home Medications Medication Instructions Recorded Confirmed albuterol sulfate 2.5 mg INHALATION Q4-6H PRN 02/26/20 11/02/20 albuterol sulfate 90 mcg/actuation 90 mcg PO Q6H PRN 02/26/20 11/02/20 aerosol inhaler blood sugar diagnostic #10 ea 02/26/20 02/26/20 clonazepam 0.5 mg tablet 0.5 mg PO BEDTIME PRN 02/26/20 11/02/20 lancets 28 gauge #100 ea 02/26/20 02/26/20 loratadine 10 mg tablet 10 mg PO DAILY PRN 02/26/20 11/02/20 sertraline 100 mg tablet 200 mg PO DAILY 02/26/20 11/02/20 amlodipine 5 mg tablet 5 mg PO BID 09/24/20 11/02/20 famotidine 20 mg tablet 20 mg PO BEDTIME 09/24/20 11/02/20 lisinopril 30 mg tablet 40 mg PO DAILY tab 09/24/20 11/02/20 nystatin 100,000 unit/gram topical 1 appl TOPICAL BID 09/24/20 11/02/20 cream pioglitazone 15 mg tablet 15 mg PO BID 11/02/20 11/02/20 Previous Rx's Medication Instructions Recorded rosuvastatin 40 mg tablet 40 mg PO DAILY 30 Days #30 tab 02/26/20 mirabegron 25 mg tablet,extended 25 mg PO DAILY 90 Days #90 tab 07/03/20 release 24 hr metformin 500 mg tablet,extended 1,000 mg PO BID #360 tab 07/07/20 release 24 hr cholecalciferol (vitamin D3) 25 25 mcg PO DAILY #90 cap 08/24/20 mcg (1,000 unit) capsule meclizine 25 mg tablet 25 mg PO TID PRN #30 tab 11/25/20 ondansetron 4 mg disintegrating 4 mg PO Q8H PRN #20 tab 11/25/20 tablet Allergies Allergy/AdvReac Type Severity Reaction Status Date / Time ibuprofen [IBUPROFEN] Allergy Severe SICK TO Verified 09/24/20 15:50 MY STOMACH ciprofloxacin [From CIPRO] Allergy Intermediate SICK Verified 09/24/20 15:50 levofloxacin [From LEVAQUIN] Allergy Intermediate SICK , Verified 11/02/20 1 1:26 nausea, dizziness x days flu vaccine Allergy Intermediate Swelling Uncoded 04/10/20 21:07 Review of Systems Review of Systems: Constitutional : No Fever, No Chills, pos Fatigue, pos Malaise ENT/Mouth : No sore throat, No Rhinorrhea Eyes: No Eye Pain, No Swelling, No Redness Cardiovascular : No Chest Pain, No SOB, No Dyspnea on Exertion, No Orthopnea, No Edema, No Palpitations Respiratory : No Cough, No Sputum, No Wheezing Gastrointestinal : pos Nausea, No Vomiting, No Diarrhea, No Constipation, No abdominal Pain, No Hematochezia, No Melena Genitourinary : No Dysuria, No Urinary Frequency, No Hematuria, Musculoskeletal : No joint pain, No Myalgias, No Joint Swelling Skin : No Skin Lesions, No rash Neuro : No Weakness, No Numbness, pos Dizziness, No Headache Psych : No Anxiety/Panic, No Depression Heme/Lymph: No Bruising, No Bleeding,No Lymphadenopathy Endocrine : No Polyuria, No Polydipsia All other systems reviewed and are negative PMFSH Past Medical History Attestation statement: The following information was validated with the patient. Medical History Bronchitis Diabetes Diabetic 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 Dyslipidemia GERD (gastroesophageal reflux disease) Hypertension Obesity (BMI 30-39.9) Osteopenia Vitamin D deficiency Surgical History History of esophagogastroduodenoscopy (EGD) Hx of colonoscopy Hx of foot surgery Family History Family History Father Heart failure Diabetes mellitus Mother Cholangiocarcinoma Diabetes mellitus Family history of hypertension Brother Lung cancer Family/Other Breast cancer Social History Social History Alcohol intake: current Alcohol intake frequency: holidays/special occasions only Alcohol type: beer Patient Tobacco Use Status: Current everyday Tobacco user Cigarettes Per Day: 12 Use of substances other than those prescribed or required for medical reasons: No Advance Directives: Yes Advance Directives Information Provided: Yes Advance Directives on File: No Physical Exam Vital Signs: Vital Signs: Last Vital Signs Temp 97.9 F 11/25/20 08:20 Pulse 66 11/25/20 08:20 Resp 18 11/25/20 08:20 BP 145/74 H 11/25/20 08:20 Pulse Ox 97 11/25/20 08:20 Body Mass Index 30.2 Appearance: Alert. Oriented X3. No acute distress. Very anxious Eyes: Pupils equal, round and reactive to light. ENT: Pharynx normal. Neck: Normal inspection. Neck supple. CVS: Normal heart rate and rhythm. Pulses normal. Respiratory: No respiratory distress. Breath sounds normal. Abdomen: Soft and non-tender. Skin: Skin warm and dry. Normal skin color. Normal skin turgor. Extremities: No lower extremity edema. No calf ttp Neuro: Oriented X 3. No motor deficit. No sensory deficit. CN2-12 intact, steady gait, no ataxia Course Course Course Narrative: work up negative, negative CT head, labs stable, tolerating PO has walked to the bathroom without assistance and a steady gait MDM - Dizziness MDM Narrative Medical decision making narrative: 60 yo female with hx of GERD, DM cataract surgery 1 week ago on ketorolac drops here with lightheadedness and feeling drugged x 5 days, she thinks the drops are poisoning her. This could be vertigo she has no other neurologic symptoms. She was instructed to call the eye doctor if she plans on stopping her drops. At this time will obtain labs, CT head, IVF, zofran and antivert. Dispo per results and findings. Lab Data Result diagrams: 11/25/20 08:17 11/25/20 08:17 Labs: Lab Results 0811/25/20 11/25/20 Range/Units 08:12 08:12 08:17 WBC 6.0 (4.8-10.8) X10*3/uL RBC 4.62 (4.20-5.50) X10*6/uL Hgb 15.4 (12.0-16.0) g/dl Hct 47.1 H (37-47) % MCV 101.9 H (80-98) fL MCH 33.3 H (27.0-33.0) pg MCHC 32.7 (31.0-35.0) g/dl RDW 12.8 (11.0-16.0) % Plt Count 254 (160-400) X10*3/uL MPV 8.7 L (9.4-12.3) fL Immature Gran % (Auto) 0.5 H (0.0-0.4) % Neut % (Auto) 64.2 (45-73) % Lymph % (Auto) 26.7 (20-40) % [place] % (Auto) 6.3 (2-11) % Eos % (Auto) 2.0 (0-4) % Baso % (Auto) 0.3 (0-2) % Lymph # (Auto) 1.6 (1.2-4.9) X10*3/uL [place] # (Auto) 0.4 (0.1-1.2) X10*3/uL Eos # (Auto) 0.1 (0.0-0.4) X10*3/uL Baso # (Auto) 0.0 (0.0-0.2) X10*3/uL Abs Immat Gran (auto) 0.03 (0.00-0.03) X10*3/uL Absolute Neuts (auto) 3.9 (2.0-8.3) X10*3/uL Absolute Nucleated RBC 0.000 (0.0-0.012) X10*3/uL Nucleated RBC % (auto) 0.0 (0.0-0.2) /100WBC Sodium (135-145) mmol/L Potassium (3.3-5.1) mmol/L Chloride (96-108) mmol/L Carbon Dioxide (22-29) mmol/L Anion Gap (12-20) BUN (9-16) mg/dL Creatinine (0.5-1.4) mg/dL Estim Creat Clear Calc Estimated GFR Random Glucose (60-115) mg/dL Calcium (8.4-10.2) mg/dL Magnesium (1.6-2.6) mg/dL Total Bilirubin (0.0-1.0) mg/dL Direct Bilirubin (0.0-0.5) mg/dL AST (5-31) U/L ALT (0-31) U/L Alkaline Phosphatase (39-117) U/L Troponin I High Sens (<3.5-17.0) ng/L Total Protein (6.5-8.0) g/dL Albumin (3.5-5.0) g/dL Urine Color YELLOW Urine Appearance CLEAR Urine pH 6.0 (5.0-8.0) Ur Specific [place] <= 1.005 (1.005-1.025) Urine Protein NEG (NEG-TRACE) MG/DL Urine Glucose (UA) NEG (NEG) MG/DL Urine Ketones NEG (NEG) MG/DL Urine Blood NEG (NEG) Urine Nitrite NEG (NEG) Ur Leukocyte Esterase NEG (NEG) Urine Opiates Screen Not Detected (Not Detect) Urine Fentanyl Screen Not Detected (Not Detect) Ur Barbiturates Screen Not Detected (Not Detect) Ur Phencyclidine Scrn Not Detected (Not Detect) Ur Amphetamines Screen Not Detected (Not Detect) U Benzodiazepines Scrn Not Detected (Not Detect) Urine Cocaine Screen Not Detected (Not Detect) U Marijuana (THC) Screen Not Detected (Not Detect) COVID-19 ([facility]) (Negative) COVID-19 Clin Com 11/25/20 11/25/20 11/25/20 Range/Units 08:17 08:17 08:17 WBC (4.8-10.8) X10*3/uL RBC (4.20-5.50) X10*6/uL Hgb (12.0-16.0) g/dl Hct (37-47) % MCV (80-98) fL MCH (27.0-33.0) pg MCHC (31.0-35.0) g/dl RDW (11.0-16.0) % Plt Count (160-400) X10*3/uL MPV (9.4-12.3) fL Immature Gran % (Auto) (0.0-0.4) % Neut % (Auto) (45-73) % Lymph % (Auto) (20-40) % [place] % (Auto) (2-11) % Eos % (Auto) (0-4) % Baso % (Auto) (0-2) % Lymph # (Auto) (1.2-4.9) X10*3/uL [place] # (Auto) (0.1-1.2) X10*3/uL Eos # (Auto) (0.0-0.4) X10*3/uL Baso # (Auto) (0.0-0.2) X10*3/uL Abs Immat Gran (auto) (0.00-0.03) X10*3/uL Absolute Neuts (auto) (2.0-8.3) X10*3/uL Absolute Nucleated RBC (0.0-0.012) X10*3/uL Nucleated RBC % (auto) (0.0-0.2) /100WBC Sodium 140 (135-145) mmol/L Potassium 4.0 (3.3-5.1) mmol/L Chloride 105 (96-108) mmol/L Carbon Dioxide 27 (22-29) mmol/L Anion Gap 12 (12-20) BUN 11 (9-16) mg/dL Creatinine 0.77 (0.5-1.4) mg/dL Estim Creat Clear Calc 74.6 Estimated GFR > 60 Random Glucose 132 H D (60-115) mg/dL Calcium 9.6 (8.4-10.2) mg/dL Magnesium 1.6 (1.6-2.6) mg/dL Total Bilirubin 0.3 (0.0-1.0) mg/dL Direct Bilirubin 0.2 (0.0-0.5) mg/dL AST 17 (5-31) U/L ALT 16 (0-31) U/L Alkaline Phosphatase 71 (39-117) U/L Troponin I High Sens < 3.5 (<3.5-17.0) ng/L Total Protein 7.5 (6.5-8.0) g/dL Albumin 4.4 (3.5-5.0) g/dL Urine Color Urine Appearance Urine pH (5.0-8.0) Ur Specific [place] (1.005-1.025) Urine Protein (NEG-TRACE) MG/DL Urine Glucose (UA) (NEG) MG/DL Urine Ketones (NEG) MG/DL Urine Blood (NEG) Urine Nitrite (NEG) Ur Leukocyte Esterase (NEG) Urine Opiates Screen (Not Detect) Urine Fentanyl Screen (Not Detect) Ur Barbiturates Screen (Not Detect) Ur Phencyclidine Scrn (Not Detect) Ur Amphetamines Screen (Not Detect) U Benzodiazepines Scrn (Not Detect) Urine Cocaine Screen (Not Detect) U Marijuana (THC) Screen (Not Detect) COVID-19 ([facility]A) Negative (Negative) COVID-19 Clin Com See Note ECG Data Attestation: I personally reviewed and interpreted this ECG as follows: ECG interpretation date: 11/25/20 ECG interpretation time: 07:59 Interpretation: Rate: 72 Rhythm: NSR [place]: normal Normal P waves. Normal DAVID. Normal QRS complex. ST T wave : normal no LYNNE qTC: normal prior studies: no acute ischemia The study has been interpreted contemporaneously by me. . Discharge Plan Discharge Clinical Impression: Dizziness Patient Disposition: Home, Self-Care Instructions: Dizziness (ED) Additional Instructions: return to ED for any worsening symptoms or concerns please let your doctor know that you are stopping the eye drops Prescriptions: New meclizine 25 mg tablet 25 mg PO TID PRN (Reason: dizziness) Qty: 30 RF: 0 ondansetron 4 mg tablet,disintegrating 4 mg PO Q8H PRN (Reason: nausea and vomiting) Qty: 20 RF: 0 No Action mirabegron 25 mg tablet extended release 24 hr 25 mg PO DAILY 90 Days Qty: 90 RF: 2 metformin 500 mg tablet extended release 24 hr 1,000 mg PO BID Qty: 360 RF: 1 cholecalciferol (vitamin D3) 25 mcg (1,000 unit) capsule 25 mcg PO DAILY Qty: 90 RF: 1 pioglitazone 15 mg tablet 15 mg PO BID RF: 0 lisinopril 30 mg tablet 40 mg PO DAILY RF: 0 amlodipine 5 mg tablet 5 mg PO BID RF: 0 nystatin 100,000 unit/gram cream 1 appl topical BID RF: 0 famotidine 20 mg tablet 20 mg PO BEDTIME RF: 0 loratadine 10 mg tablet 10 mg PO DAILY PRN (Reason: Allergy Symptoms) RF: 0 sertraline 100 mg tablet 200 mg PO DAILY RF: 0 clonazepam 0.5 mg tablet 0.5 mg PO BEDTIME PRN (Reason: Anxiety) RF: 0 albuterol sulfate 90 mcg/actuation HFA aerosol inhaler 90 mcg PO Q6H PRN (Reason: Wheezing) RF: 0 (DME) blood sugar diagnostic Strip See Rx Instructions strip Not Applicable DAILY Qty: 10 RF: 0 (DME) lancets 28 gauge misc See Rx Instructions ea topical DAILY Qty: 100 RF: 0 albuterol sulfate 2.5 mg /3 mL (0.083 %) solution for nebulization 2.5 mg inhalation Q4-6H PRN (Reason: Wheezing) RF: 0 rosuvastatin 40 mg tablet 40 mg PO DAILY 30 Days Qty: 30 RF: 5 Referrals: Thelma De Jesus MD [Primary Care Provider] - 2 days (if not better) Stand Alone Forms: Work/School Release
--- NOTE | 2020-11-25 07:44 | ECG_ITS ---
Test Reason : DIZZINESS Blood Pressure : / mmHG Vent. Rate : 072 BPM Atrial Rate : 072 BPM P-R Int : 174 ms QRS Dur : 082 ms QT Int : 376 ms P-R-T Axes : 057 021 058 degrees QTc Int : 411 ms Normal sinus rhythm Low voltage QRS Borderline ECG When compared with ECG of 10-APR-2020 20:57, No significant change was found Referred By: Antonia Meyer Electronically Signed By:PHIL SANTIZO
[2020-11-25 07:45] VITALS: BP 154/70; PULSE 78; RESP 16; TEMP 36.9; O2SAT 98; BMI 30.2
[2020-11-25 07:49] VITALS: BP 154/70; PULSE 78; RESP 16; TEMP 36.9; O2SAT 98
[2020-11-25 08:20] VITALS: BP 145/74; PULSE 66; RESP 18; TEMP 36.6; O2SAT 97
[2020-11-25 08:23] LABS: MANUAL DIFF FLAG NO
[2020-11-25 08:25] LABS: Glucose Urine UA NEG (NEG); Leukocyte Esterase Urine NEG (NEG); Nitrite Urine NEG (NEG); Specific Gravity - Urine <= 1.005 (1.005-1.025); Urine Blood NEG (NEG); Urine Ketones NEG (NEG); Urine Protein NEG (NEG-TRACE)
[2020-11-25 08:25] LABS: Basophils Percent Auto 0.3 % (0-2); Eosinophils Absolute Auto 0.1 X10*3/uL (0.0-0.4); Hematocrit 47.1 % (37-47); Hemoglobin 15.4 g/dl (12.0-16.0); Imm Gran Abs Auto 0.03 X10*3/uL (0.00-0.03); Imm Gran Pct Auto 0.5 % (0.0-0.4); Lymphocytes Absolute Auto 1.6 X10*3/uL (1.2-4.9); Lymphocytes Percent Auto 26.7 % (20-40); Mean Corpuscular HGB Conc 32.7 g/dl (31.0-35.0); Mean Corpuscular Hemoglobin 33.3 pg (27.0-33.0); Mean Corpuscular Volume 101.9 fL (80-98); Mean Platelet Volume 8.7 fL (9.4-12.3); Monocytes Absolute Auto 0.4 X10*3/uL (0.1-1.2); Monocytes Percent Auto 6.3 % (2-11); Neutrophils Absolute Auto 3.9 X10*3/uL (2.0-8.3); Neutrophils Percent Auto 64.2 % (45-73); Platelet Count 254 X10*3/uL (160-400); Red Blood Count 4.62 X10*6/uL (4.20-5.50); Red Cell Distribution Width 12.8 % (11.0-16.0)
[2020-11-25 08:26] LABS: Appearance Urine CLEAR; Color Urine YELLOW
[2020-11-25] MEDS: ondansetron HCL 4 MG/2 ML VIAL IVPUSH (08:26)
[2020-11-25] MEDS: Meclizine HCl 25 MG TABLET PO (08:26)
[2020-11-25] MEDS: 0.9 % Sodium Chloride 1,000 ML 999 ML IVCONT (08:26)
[2020-11-25 08:41] LABS: COVID-19 Test Negative (Negative)
[2020-11-25 09:01] LABS: Troponin-I High Sensitivity < 3.5 ng/L (<3.5-17.0)
[2020-11-25 09:07] LABS: Alanine Aminotransferase 16 U/L (0-31); Albumin Level 4.4 g/dL (3.5-5.0); Alkaline Phosphatase 71 U/L (39-117); Anion Gap 12 (12-20); Aspartate Amino Transferase 17 U/L (5-31); Bilirubin Direct 0.2 mg/dL (0.0-0.5); Bilirubin Total 0.3 mg/dL (0.0-1.0); Blood Urea Nitrogen 11 mg/dL (9-16); Calcium 9.6 mg/dL (8.4-10.2); Carbon Dioxide 27 mmol/L (22-29); Chloride 105 mmol/L (96-108); Creatinine Clr Calc Pharmacy 74.6; Estimated Glomerular Filt Rate > 60; Glucose Random 132 mg/dL (60-115); Magnesium 1.6 mg/dL (1.6-2.6); Sodium 140 mmol/L (135-145); Total Protein 7.5 g/dL (6.5-8.0)
[2020-11-25 09:12] LABS: Amphetamine Screen Urine Not Detected (Not Detect); Barbiturates, Urine Not Detected (Not Detect); Benzodiazepines Screen Urine Not Detected (Not Detect); Cannabinoid Screen Urine Not Detected (Not Detect); Cocaine Screen Urine Not Detected (Not Detect); Fentanyl, urine Not Detected (Not Detect); Opiate Screen Urine Not Detected (Not Detect); Phencyclidine Screen Urine Not Detected (Not Detect)
== END 2020-11-25 09:50 | disposition home or self-care (01) ==
PROVIDERS: Emergency Provider Emergency Medicine; PCP General Practice
DX: R42 Dizziness and giddiness (principal); F17.210 Nicotine dependence, cigarettes, uncomplicated; Z71.6 Tobacco abuse counseling; Z79.899 Other long term (current) drug therapy; Z20.822 Contact with and (suspected) exposure to COVID-19
CPT/HCPCS: 36415; 70450; 80048; 80076; 80307; 81003; 83735; 84484; 85025; 87635; 93005; 96361; 96374; 99284; J2405

== ENCOUNTER 2020-12-20 09:58 | Inpatient (IN) | payer OTHER, SELFPAY ==
[2020-12-20] VITALS (11 sets, daily range): BP systolic 102–145; BP diastolic 56–63; PULSE 84–122; RESP 17–20; TEMP 36.2–38.1; O2SAT 90–100; BMI 30.1
--- NOTE | 2020-12-20 | ECG_ITS ---
Test Reason : afib Blood Pressure : / mmHG Vent. Rate : 108 BPM Atrial Rate : 110 BPM P-R Int : 000 ms QRS Dur : 086 ms QT Int : 284 ms P-R-T Axes : 000 013 012 degrees QTc Int : 380 ms Atrial fibrillation with rapid ventricular response Abnormal ECG When compared with ECG of 20-DEC-2020 10:58, Atrial fibrillation with rapid ventricular response has replaced Sinus tachycardia Referred By: Driss Faulkner Electronically Signed By:PHIL SANTIZO
--- NOTE | ~2020-12-20 | XR_ITS ---
EXAMINATION: XR CHEST CLINICAL INFORMATION: SOB COMPARISON: Chest 06/23/2020 TECHNIQUE: Frontal view of the chest was obtained. FINDINGS: The lungs are well-expanded with patchy opacity right midlung new since the previous study rest of lungs are clear.. Heart size is normal. Slight prominence of pulmonary vascularity is noted. No gross bony abnormality. XR/XR chest 1V IMPRESSION: Slight patchy opacity right midlung likely developing infiltrate.
--- NOTE | 2020-12-20 10:49 | ECG_ITS ---
Test Reason : DYSPNEA Blood Pressure : / mmHG Vent. Rate : 103 BPM Atrial Rate : 103 BPM P-R Int : 162 ms QRS Dur : 086 ms QT Int : 314 ms P-R-T Axes : 062 009 061 degrees QTc Int : 411 ms Sinus tachycardia Otherwise normal ECG When compared with ECG of 25-NOV-2020 07:56, Heart rate has increased Referred By: Kathleen Vásquez Electronically Signed By:PHIL SANTIZO
--- NOTE | 2020-12-20 10:53 | ED_ITS ---
HPI - Asthma General Chief Complaint: Asthma Stated Complaint: HEADACHE ASTHMA Time Seen by Provider: 12/20/20 10:49 History of Present Illness HPI Narrative: Patient is 60-year-old female presented today with having wheezing shortness of breath headache similar to previous bouts of migraine headaches. history of asthma and migraine. Patient is a lifelong smoker. Over 40 pack years of smoking. Quit on . Complaining of coughing upper respiratory symptoms. She also had her coronavirus vaccine back in July. Now is complaining of headache that is diffuse. She had cataract surgery done 1 month ago on the right eye. Two weeks ago on the left eye. Patient claims the vision is about the same. There is no fever no chills. No focal weakness. No nausea no vomiting. No diaphoresis. Patient is from home. Positive coughing upper respiratory symptoms that is not changed. Just had her COVID vaccine back in July. Related Data Home Medications Medication Instructions Recorded Confirmed albuterol sulfate 2.5 mg INHALATION Q4-6H PRN 02/26/20 12/20/20 loratadine 10 mg tablet 10 mg PO DAILY PRN 02/26/20 12/20/20 sertraline 100 mg tablet 200 mg PO DAILY 02/26/20 12/20/20 amlodipine 5 mg tablet 5 mg PO BID 09/24/20 12/20/20 famotidine 20 mg tablet 20 mg PO BEDTIME 09/24/20 12/20/20 lisinopril 30 mg tablet 40 mg PO DAILY tab 09/24/20 12/20/20 pioglitazone 15 mg tablet 15 mg PO BID 11/02/20 12/20/20 clonazepam 0.5 mg tablet 1 tab PO BEDTIME PRN 12/20/20 12/20/20 fluticasone propionate 50 1 spray INTRANASAL DAILY 12/20/20 12/20/20 mcg/actuation nasal spray,suspension Previous Rx's Medication Instructions Recorded rosuvastatin 40 mg tablet 40 mg PO DAILY 30 Days #30 tab 02/26/20 mirabegron 25 mg tablet,extended 25 mg PO DAILY 90 Days #90 tab 07/03/20 release 24 hr metformin 500 mg tablet,extended 1,000 mg PO BID #360 tab 07/07/20 release 24 hr cholecalciferol (vitamin D3) 25 25 mcg PO DAILY #90 cap 08/24/20 mcg (1,000 unit) capsule Allergies Allergy/AdvReac Type Severity Reaction Status Date / Time ibuprofen [IBUPROFEN] Allergy Severe SICK TO Verified 09/24/20 15:50 MY STOMACH ciprofloxacin [From CIPRO] Allergy Intermediate SICK Verified 09/24/20 15:50 levofloxacin [From LEVAQUIN] Allergy Intermediate SICK , Verified 11/02/20 11:26 nausea, dizziness x days flu vaccine Allergy Intermediate Swelling Uncoded 04/10/20 21:07 Review of Systems Review of Systems: Positive coughing up respiratory symptoms. Positive headache. Yes all other systems are reviewed and are negative [facility] Past Medical History Attestation statement: The following information was validated with the patient. Medical History Bronchitis Diabetes Diabetic 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 Dyslipidemia GERD (gastroesophageal reflux disease) Hypertension Obesity (BMI 30-39.9) Osteopenia Vitamin D deficiency Surgical History History of esophagogastroduodenoscopy (EGD) Hx of colonoscopy Hx of foot surgery Family History Family History Father Heart failure Diabetes mellitus Mother Cholangiocarcinoma Diabetes mellitus Family history of hypertension Brother Lung cancer Family/Other Breast cancer Social History Social History Alcohol intake: current Alcohol intake frequency: holidays/special occasions only Alcohol type: beer Patient Tobacco Use Status: Current everyday Tobacco user Cigarettes Per Day: 12 Advance Directives: Yes Advance Directives Information Provided: Yes Advance Directives on File: No Patient : No Physical Exam Vital Signs: Vital Signs: Last Vital Signs Temp 100.5 F H 12/20/20 12:12 Pulse 119 H 12/20/20 12:12 Resp 18 12/20/20 12:12 BP 129/56 L 12/20/20 12:12 Pulse Ox 96 12/20/20 12:12 Body Mass Index 30.1 Appearance: Alert. Oriented X3. No acute distress. Eyes: Pupils equal, round and reactive to light. ENT: Pharynx normal. Neck: Normal inspection. Neck supple. No lymph nodes noted. No crepitus CVS: Normal heart rate and rhythm. Pulses normal. Normal S1 and S2 Respiratory: Positive wheezing bilaterally Abdomen: Soft and nontender. No rigidity. No distention. good BS x4 Skin: Skin warm and dry. Normal skin color. Normal skin turgor. Extremities: No lower extremity edema. Neurovascular intact to all extremities. No Lacerations. No Rash Neuro: Oriented X 3. No motor deficit. No sensory deficit. Moving all extermities. No slurred speech MDM - Asthma MDM Narrative Medical decision making narrative: Patient's O2 sat 88% on room air. Baseline not on home O2. Given neb treatment as patient's wheezing shortness of breath. Steroid. Chest x-ray show focal infiltrate consistent with early pneumonia. Cu lture obtained antibiotics started. Patient given neb treatment here in the emergency department. Symptom improves slightly. Still hypoxic after treatment. Still wheezing still having increased respiratory rate. Will admit patient for further evaluation. Patient's O2 sats 80% after neb treatment. Patient also had nonspecific headache. Labs unremarkable no signs of meningitis on exam. Patient in addition had a sed rate that is low no evidence for temporal arteritis. Given Reglan for nonspecific headache/migraine versus tension. Improved somewhat with the medication. Patient's lactate is 1.2. No evidence for sepsis. In addition patient received neb treatment. Likely the cause of the elevation in heart rate. Nevertheless cultures obtain antibiotic was started fluid were given. Patient is to be admitted. Differential Diagnosis Differential diagnosis: Likely Acute exacerbation Lab Data Result diagrams: 12/20/20 11:07 12/20/20 11:07 Labs: Lab Results 12/20/20 12/20/20 12/20/20 Range/Units 11:07 11:07 11:07 WBC 2.8 L (4.8-10.8) X10*3/uL RBC 4.53 (4.20-5.50) X10*6/uL Hgb 15.0 (12.0-16.0) g/dl Hct 42.9 (37-47) % MCV 94.7 (80-98) fL MCH 33.1 H (27.0-33.0) pg MCHC 35.0 (31.0-35.0) g/dl RDW 12.9 (11.0-16.0) % Plt Count 45 L D (160-400) X10*3/uL MPV 9.7 (9.4-12.3) fL Immature Gran % (Auto) 1.1 H (0.0-0.4) % Neut % (Auto) 86.6 H (45-73) % Lymph % (Auto) 9.0 L (20-40) % [place] % (Auto) 2.9 (2-11) % Eos % (Auto) 0.0 (0-4) % Baso % (Auto) 0.4 (0-2) % Lymph # (Auto) 0.3 L (1.2-4.9) X10*3/uL [place] # (Auto) 0.1 (0.1-1.2) X10*3/uL Eos # (Auto) 0.0 (0.0-0.4) X10*3/uL Baso # (Auto) 0.0 (0.0-0.2) X10*3/uL Abs Immat Gran (auto) 0.03 (0.00-0.03) X10*3/uL Absolute Neuts (auto) 2.4 (2.0-8.3) X10*3/uL Absolute Nucleated RBC 0.000 (0.0-0.012) X10*3/uL Nucleated RBC % (auto) 0.0 (0.0-0.2) /100WBC Smear Tech's Comments VERIFIED ESR (0-20) MM/HR Sodium 131 L (135-145) mmol/L Potassium 3.7 (3.3-5.1) mmol/L Chloride 100 (96-108) mmol/L Carbon Dioxide 21 L (22-29) mmol/L Anion Gap 14 (12-20) BUN 13 (9-16) mg/dL Creatinine 0.73 (0.5-1.4) mg/dL Estim Creat Clear Calc 78.5 Estimated GFR > 60 Random Glucose 152 H (60-115) mg/dL Lactic Acid (0.5-2.0) mmol/L Calcium 8.3 L D (8.4-10.2) mg/dL Troponin I High Sens 4.0 (<3.5-17.0) ng/L B-Natriuretic Peptide 10 (<100) pg/mL Coronavirus (PCR) (Negative) Influenza Type A (PCR) (Negative) Influenza Type B (PCR) (Negative) RSV RNA Qual (PCR) (Negative) 12/20/20 12/20/20 12/20/20 Range/Units 11:07 11:07 13:17 WBC (4.8-10.8) X10*3/uL RBC (4.20-5.50) X10*6/uL Hgb (12.0-16.0) g/dl Hct (37-47) % MCV (80-98) fL MCH (27.0-33.0) pg MCHC (31.0-35.0) g/dl RDW (11.0-16.0) % Plt Count (160-400) X10*3/uL MPV (9.4-12.3) fL Immature Gran % (Auto) (0.0-0.4) % Neut % (Auto) (45-73) % Lymph % (Auto) (20-40) % [place] % (Auto) (2-11) % Eos % (Auto) (0-4) % Baso % (Auto) (0-2) % Lymph # (Auto) (1.2-4.9) X10*3/uL [place] # (Auto) (0.1-1.2) X10*3/uL Eos # (Auto) (0.0-0.4) X10*3/uL Baso # (Auto) (0.0-0.2) X10*3/uL Abs Immat Gran (auto) (0.00-0.03) X10*3/uL Absolute Neuts (auto) (2.0-8.3) X10*3/uL Absolute Nucleated RBC (0.0-0.012) X10*3/uL Nucleated RBC % (auto) (0.0-0.2) /100WBC Smear Tech's Comments ESR 23 H (0-20) MM/HR Sodium (135-145) mmol/L Potassium (3.3-5.1) mmol/L Chloride (96-108) mmol/L Carbon Dioxide (22-29) mmol/L Anion Gap (12-20) BUN (9-16) mg/dL Creatinine (0.5-1.4) mg/dL Estim Creat Clear Calc Estimated GFR Random Glucose (60-115) mg/dL Lactic Acid 1.2 (0.5-2.0) mmol/L Calcium (8.4-10.2) mg/dL Troponin I High Sens (<3.5-17.0) ng/L B-Natriuretic Peptide (<100) pg/mL Coronavirus (PCR) NEGATIVE (Negative) Influenza Type A (PCR) NEGATIVE (Negative) Influenza Type B (PCR) NEGATIVE (Negative) RSV RNA Qual (PCR) NEGATIVE (Negative) Critical Care Time Critical Care Time Critical Care Time: Yes Total Critical Care Time: 40 Attestation: I have personally provided 40 minutes of critical care time exclusive of time spent on separately billable procedures. Time includes review of lab data, radiology results, discussion with consultants, and monitoring for potential decompensation. Interventions were performed as documented above Discharge Plan Discharge Clinical Impression: Pneumonia, Asthma Prescriptions: No Action mirabegron 25 mg tablet extended release 24 hr 25 mg PO DAILY 90 Days Qty: 90 RF: 2 metformin 500 mg tablet extended release 24 hr 1,000 mg PO BID Qty: 360 RF: 1 cholecalciferol (vitamin D3) 25 mcg (1,000 unit) capsule 25 mcg PO DAILY Qty: 90 RF: 1 pioglitazone 15 mg tablet 15 mg PO BID RF: 0 clonazepam 0.5 mg tablet 1 tab PO BEDTIME PRN (Reason: Anxiety) RF: 0 fluticasone propionate 50 mcg/actuation spray,suspension 1 spray intranasal DAILY RF: 0 lisinopril 30 mg tablet 40 mg PO DAILY RF: 0 amlodipine 5 mg tablet 5 mg PO BID RF: 0 famotidine 20 mg tablet 20 mg PO BEDTIME RF: 0 loratadine 10 mg tablet 10 mg PO DAILY PRN (Reason: Allergy Symptoms) RF: 0 sertraline 100 mg tablet 200 mg PO DAILY RF: 0 albuterol sulfate 2.5 mg /3 mL (0.083 %) solution for nebulization 2.5 mg inhalation Q4-6H PRN (Reason: Wheezing) RF: 0 rosuvastatin 40 mg tablet 40 mg PO DAILY 30 Days Qty: 30 RF: 5
[2020-12-20 11:15] LABS: Basophils Percent Auto 0.4 % (0-2); Hematocrit 42.9 % (37-47); Imm Gran Abs Auto 0.03 X10*3/uL (0.00-0.03); Imm Gran Pct Auto 1.1 % (0.0-0.4); Lymphocytes Absolute Auto 0.3 X10*3/uL (1.2-4.9); MANUAL DIFF FLAG SCAN; Mean Corpuscular Hemoglobin 33.1 pg (27.0-33.0); Mean Corpuscular Volume 94.7 fL (80-98); Monocytes Absolute Auto 0.1 X10*3/uL (0.1-1.2); Monocytes Percent Auto 2.9 % (2-11); Neutrophils Absolute Auto 2.4 X10*3/uL (2.0-8.3); Neutrophils Percent Auto 86.6 % (45-73); Red Blood Count 4.53 X10*6/uL (4.20-5.50); Red Cell Distribution Width 12.9 % (11.0-16.0); SCAN SMEAR FLAG 1; White Blood Count 2.8 X10*3/uL (4.8-10.8)
[2020-12-20] MEDS: Metoclopramide HCl 10 MG/2 ML VIAL IVPUSH (11:16)
[2020-12-20] MEDS: methylPREDNISolone Sod Succ 125 MG/2 ML VIAL IVPUSH (11:16)
[2020-12-20] MEDS: diphenhydrAMINE HCL 50 MG/ML VIAL 25 MG IVPUSH (11:16)
[2020-12-20] MEDS: Albuterol Sulfate (0.083%) 2.5 MG/3 ML VIAL.NEB 7.5 MG INHALE (11:25)
[2020-12-20 11:26] LABS: Anion Gap 14 (12-20); Blood Urea Nitrogen 13 mg/dL (9-16); Calcium 8.3 mg/dL (8.4-10.2); Carbon Dioxide 21 mmol/L (22-29); Chloride 100 mmol/L (96-108); Creatinine Clr Calc Pharmacy 78.5; Estimated Glomerular Filt Rate > 60; Glucose Random 152 mg/dL (60-115); Potassium 3.7 mmol/L (3.3-5.1); Sodium 131 mmol/L (135-145)
[2020-12-20 11:32] LABS: B Type Natriuretic Peptide 10 pg/mL (<100)
[2020-12-20 11:33] LABS: Mean Platelet Volume 9.7 fL (9.4-12.3); Platelet Count 45 X10*3/uL (160-400); SLIDE REVIEW VERIFIED
[2020-12-20 11:52] LABS: Influenza A PCR NEGATIVE (Negative); Influenza B PCR NEGATIVE (Negative); Resp Syncy Virus RNA Qual PCR NEGATIVE (Negative); SARS COV2 PCR INHOUSE NEGATIVE (Negative)
[2020-12-20 12:06] LABS: Erythrocyte Sedimentation Rate 23 MM/HR (0-20)
[2020-12-20] MEDS: Azithromycin 500 MG TABLET PO (13:35)
[2020-12-20] MEDS: Acetaminophen 325 MG TABLET 650 MG PO (13:35)
[2020-12-20 13:37] LABS: Lactic Acid 1.2 mmol/L (0.5-2.0)
[2020-12-20] MEDS: cefTRIAXone sodium 1 GM in 0.9 % Sodium Chloride 50 ML IV (13:37)
[2020-12-20] MEDS: 0.9 % Sodium Chloride 2,313.33 ML 2313.33 ML IV (14:24)
--- NOTE | 2020-12-20 14:28 | PM.IMHP ---
History of Present Illness Date of Service: 12/20/20 Chief Complaint: Shortness of breath and cough 60 year female, active smoker, HTN controlled on meds, non-insulin dpendent diabetes that is controlled, HLD treated with statin, asthm that is usually well controlled here with shortness of breath, productive cough for 4 days now and associated with fever, headache and bodye ache not improving with conservative management at home. She is vaccinated for covid since June and is presently covid negative. Work up has revealed RLL pneumonia and is being admitted for asthma exacerbation. sepsis and pneumonia. Review of Systems Review of Systems: Gen: +fever Resp: +sob, + cough CV: no chest, no CHICAS, no leg edema GI: No n/v, no abd pain Neuro: No confusion All other systems are reviewed and are negative [facility] Medical History (Updated 12/20/20 @ 14:35 by Tad Edward MD) Bronchitis Diabetes Diabetic 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 Dyslipidemia GERD (gastroesophageal reflux disease) Hypertension Obesity (BMI 30-39.9) Osteopenia Vitamin D deficiency Family History Father Heart failure Diabetes mellitus Mother Cholangiocarcinoma Diabetes mellitus Family history of hypertension Brother Lung cancer Family/Other Breast cancer Pertinent family history: - Surgical History History of esophagogastroduodenoscopy (EGD) Hx of colonoscopy Hx of foot surgery Social History Alcohol intake: current Alcohol intake frequency: holidays/special occasions only Alcohol type: beer Patient Tobacco Use Status: Current everyday Tobacco user Cigarettes Per Day: 12 Advance Directives: Yes Advance Directives Information Provided: Yes Advance Directives on File: No Patient : No Meds Allergies Allergy/AdvReac Type Severity Reaction Status Date / Time ibuprofen [IBUPROFEN] Allergy Severe SICK TO Verified 09/24/20 15:50 MY STOMACH ciprofloxacin [From CIPRO] Allergy Intermediate SICK Verified 09/24/20 15:50 levofloxacin [From LEVAQUIN] Allergy Intermediate SICK , Verified 11/02/20 11:26 nausea, dizziness x days flu vaccine Allergy Intermediate Swelling Uncoded 04/10/20 21:07 Active Medications: Current Medications Acetaminophen (Acetaminophen 325 Mg Tablet) 650 mg PO Q6H PRN PRN Reason: Pain, Mild (Pain Scale 1-3) Albuterol/Ipratropium (Albuterol/Iprat 2.5/0.5mg 3 Ml Ampul.Neb) 3 ml INHALE RQ4H WHILE AWAKE [facility] Albuterol/Ipratropium (Albuterol/Iprat 2.5/0.5mg 3 Ml Ampul.Neb) 3 ml INHALE Q2H PRN PRN Reason: wheezing and shortness of dayan Amlodipine Besylate (Amlodipine Besylate 5 Mg Tablet) 5 mg PO BID [facility]; Protocol Clonazepam (Clonazepam 0.5 Mg Tablet) 0.5 mg PO BEDTIME PRN PRN Reason: Anxiety Famotidine (Famotidine 20 Mg Tablet) 20 mg PO BEDTIME [facility] Fluticasone Propionate (Fluticasone Propionate Nasal 16 [place]) 1 spray NOSTRIL-B DAILY [facility] Guaifenesin (Guaifenesin 100 Mg/5 Ml Liquid) 5 ml PO Q6H PRN PRN Reason: Cough Ceftriaxone Sodium 1 gm/ (Sodium Chloride) 50 mls @ 100 mls/hr IV Q24H [facility] Azithromycin 500 mg/ Sodium (Chloride) 250 mls @ 125 mls/hr IV Q24H [facility] Insulin Human Lispro (Insulin Lispro 100 Unit/Ml 3 Ml Vial) 0 unit SUBCUT QIDACHS [facility]; Protocol Lisinopril (Lisinopril 40 Mg Tablet) 40 mg PO DAILY [facility]; Protocol Loratadine (Loratadine 10 Mg Tablet) 10 mg PO DAILY PRN PRN Reason: Allergy Symptoms Magnesium Hydroxide (Milk Of Magnesia 30 Ml Oral.Susp) 30 ml PO DAILY PRN PRN Reason: Constipation Melatonin (Melatonin 3 Mg Tablet) 6 mg PO BEDTIME PRN PRN Reason: Insomnia Metformin HCl (Metformin Hcl Er 500 Mg Tab.Er.24h) 1,000 mg PO BID [facility] Methylprednisolone Sodium Succinate (Methylprednisolone Sod Succ 40 Mg/Ml Vial) 40 mg IVPUSH BID [facility] Mirabegron (Mirabegron 25 Mg Tab.Er.24h) 25 mg PO DAILY [facility] Non-Formulary Medication (Rosuvastatin) 40 mg PO DAILY [facility] Ondansetron HCl (Ondansetron Hcl 4 Mg/2 Ml Vial) 4 mg IVPUSH Q8H PRN PRN Reason: Nausea and Vomiting Pharmacy Consult (Consult Rx Perform Med Rec) 1 each MISCELLANE ONCE PRN PRN Reason: Consult order Pioglitazone HCl (Pioglitazone Hcl 15 Mg Tablet) 15 mg PO BID [facility] Rivaroxaban (Rivaroxaban 10 Mg Tablet) 10 mg PO DAILY [facility] Sertraline HCl (Sertraline Hcl 100 Mg Tablet) 200 mg PO DAILY [facility] Sodium Chloride (0.9 % Sodium Chloride Flush 3 Ml Syringe) 3 ml IVFLUSH QSHIFT [facility] Vitamin D (Cholecalciferol (Vitamin D3) 25 Mcg Tablet) 25 mcg PO DAILY [facility] Home Medications Medication Instructions Recorded Confirmed Last Taken Type albuterol sulfate 2.5 mg INHALATION Q4-6H PRN 02/26/20 12/20/20 Unknown History loratadine 10 mg tablet 10 mg PO DAILY PRN 02/26/20 12/20/20 Unknown History sertraline 100 mg tablet 200 mg PO DAILY 02/26/20 12/20/20 Unknown History amlodipine 5 mg tablet 5 mg PO BID 09/24/20 12/20/20 Unknown History famotidine 20 mg tablet 20 mg PO BEDTIME 09/24/20 12/20/20 Unknown History lisinopril 30 mg tablet 40 mg PO DAILY tab 09/24/20 12/20/20 Unknown History pioglitazone 15 mg tablet 15 mg PO BID 11/02/20 12/20/20 Unknown History clonazepam 0.5 mg tablet 1 tab PO BEDTIME PRN 12/20/20 12/20/20 Unknown History fluticasone propionate 50 1 spray INTRANASAL DAILY 12/20/20 12/20/20 Unknown History mcg/actuation nasal spray,suspension Physical Exam Vital Signs and Narrative: Vital Signs: Last Vital Signs Temp 100.5 F H 12/20/20 12:12 Pulse 119 H 12/20/20 12:12 Resp 18 12/20/20 12:12 BP 129/56 L 12/20/20 12:12 Pulse Ox 96 12/20/20 12:12 Body Mass Index 30.1 Constitutional Awake and Alert, No apparent distress, get sob while talking HEEENT--anicteric Neck Supple, No lymphadenopathy Cardiovascular RRR, No M/R/G, S1 S2, No S3 S4, No pedal edema Respiratory wheezes. rale at right base Gastrointestinal Non tender, Non-distended Skin No rash No lymphadenoapthy Neurological Alert & oriented x3 Psychological Appropriate affect MSK normal movement. Results Labs CBC and Chem 7: 12/20/20 11:07 12/20/20 11:07 Labs: Laboratory Results - last 24 hr 12/20/20 12/20/20 12/20/20 11:07 11:07 11:07 MCV 94.7 MCH 33.1 H MCHC 35.0 RDW 12.9 Plt Count 45 L D MPV 9.7 Immature Gran % (Auto) 1.1 H Neut % (Auto) 86.6 H Lymph % (Auto) 9.0 L [place] % (Auto) 2.9 Eos % (Auto) 0.0 Baso % (Auto) 0.4 Lymph # (Auto) 0.3 L [place] # (Auto) 0.1 Eos # (Auto) 0.0 Baso # (Auto) 0.0 Abs Immat Gran (auto) 0.03 Absolute Neuts (auto) 2.4 Absolute Nucleated RBC 0.000 Nucleated RBC % (auto) 0.0 Smear Tech's Comments VERIFIED ESR Anion Gap 14 Estim Creat Clear Calc 78.5 Estimated GFR > 60 Random Glucose 152 H Lactic Acid Calcium 8.3 L D Troponin I High Sens 4.0 B-Natriuretic Peptide 10 Coronavirus (PCR) Influenza Type A (PCR) Influenza Type B (PCR) RSV RNA Qual (PCR) 12/20/20 12/20/20 12/20/20 11:07 11:07 13:17 MCV MCH MCHC RDW Plt Count MPV Immature Gran % (Auto) Neut % (Auto) Lymph % (Auto) [place] % (Auto) Eos % (Auto) Baso % (Auto) Lymph # (Auto) [place] # (Auto) Eos # (Auto) Baso # (Auto) Abs Immat Gran (auto) Absolute Neuts (auto) Absolute Nucleated RBC Nucleated RBC % (auto) Smear Tech's Comments ESR 23 H Anion Gap Estim Creat Clear Calc Estimated GFR Random Glucose Lactic Acid 1.2 Calcium Troponin I High Sens B-Natriuretic Peptide Coronavirus (PCR) NEGATIVE Influenza Type A (PCR) NEGATIVE Influenza Type B (PCR) NEGATIVE RSV RNA Qual (PCR) NEGATIVE Imaging Radiologist's Impressions: Impressions Chest X-Ray 12/20/20 10:49 IMPRESSION: Slight patchy opacity right midlung likely developing infiltrate. 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 Sepsis due to Pneumonia, meet criteria with tachycardia, leukopenia- -treate underlying pneumonni Community acquired pneumonia -Treate with Ceftriaxone and Azithromycin D1 Asthma exacerbation -Treat with bronchodilators, steroid Diabetes--contiuue Metoformin, Actos, add sliding scale insulin, check sugars before meals and at bedtime HTN--continue Lisinopril, Norvasc HLD--continue Rozuvostatin Tobacco dependence--NRT, coucel Quality Stroke Does the patient have a stroke diagnosis?: No VTE Prior VTE?: No VTE Risk Level:: Medical - moderate - high VTE Device Contraindication: Treatment Not Indicated VTE Drug Contraindication: N/A - Med Ordered
[2020-12-20] MEDS: Albuterol/Iprat 2.5/0.5MG 3 ML AMPUL.NEB INHALE ×2 (17:00→20:24)
[2020-12-20 17:34] LABS: Glucose, Whole Blood 270 mg/dL (60-115)
[2020-12-20] MEDS: Insulin Lispro 100 UNIT/ML 3 ML VIAL SUBCUT ×2 (18:18→22:05)
--- NOTE | 2020-12-20 19:26 | PC.NURSE ---
This RN calling [facility], per flexo folder gluer operator, the nurse is in report and will call back.
[2020-12-20 19:50] LABS: Appearance Urine HAZY; Color Urine YELLOW; Glucose Urine UA NEG (NEG); Leukocyte Esterase Urine NEG (NEG); Nitrite Urine NEG (NEG); PH 5.5 (5.0-8.0); UACC Culture Trigger NO; Urine Blood 1+ (NEG); Urine Ketones 5 MG/DL (NEG); Urine Protein 2+ MG/DL (NEG-TRACE)
--- NOTE | 2020-12-20 19:58 | PC.NURSE ---
RN remains unable to take report at this time.
[2020-12-20 20:00] LABS: Hyaline Casts Urine 0-2 /LPF; RBC Urine 0 /HPF (0); Squamous Epithelial Cell Urine 1+ /LPF; WBC Urine 0 /HPF (0-4)
--- NOTE | 2020-12-20 20:02 | PC.NURSE ---
Report given to Hellen. Per Hellen, room not clean at this time. pre sales technical consultant preparing pt for transport to floor.
[2020-12-20 21:11] LABS: Glucose, Whole Blood 247 mg/dL (60-115)
[2020-12-20] MEDS: metFORMIN HCl ER 500 MG TAB.ER.24H 1000 MG PO (22:04)
[2020-12-20] MEDS: amLODIPine Besylate 5 MG TABLET PO (22:04)
[2020-12-20] MEDS: Famotidine 20 MG TABLET PO (22:04)
[2020-12-20] MEDS: methylPREDNISolone Sod Succ 40 MG/ML VIAL IVPUSH (22:06)
[2020-12-21] VITALS (15 sets, daily range): BP systolic 104–119; BP diastolic 51–91; PULSE 75–133; RESP 16–20; TEMP 35.7–37; O2SAT 94–99
--- NOTE | 2020-12-21 00:17 | PM.EVENT ---
Event Note Date of Service: 12/21/20 Event Note: new onset Afib: Echo Cardiology consult for further inputs
[2020-12-21] MEDS: 0.9 % Sodium Chloride Flush 3 ML SYRINGE IVFLUSH ×4 (00:30→21:20)
--- NOTE | 2020-12-21 00:53 | PC.NURSE ---
Patient arrived to unit A&Ox4, no tele pack on, after placement patient was found to be in afib 100's. Patient denies any history of Afib, ekg done confirmed afib notified , no new orders at this time continue to monitor. Patient denies any symtpoms, just fatigue. Patient on 2L NC sats 96%, lung sounds crackles in the bases. Will continue to monitor at this time.
[2020-12-21] MEDS: Acetaminophen 325 MG TABLET 650 MG PO (04:26)
[2020-12-21] MEDS: Albuterol/Iprat 2.5/0.5MG 3 ML AMPUL.NEB INHALE (07:31)
[2020-12-21] MEDS: Insulin Lispro 100 UNIT/ML 3 ML VIAL SUBCUT ×4 (07:58→21:19)
[2020-12-21] MEDS: methylPREDNISolone Sod Succ 40 MG/ML VIAL IVPUSH ×2 (07:59→21:20)
[2020-12-21] MEDS: Atorvastatin Calcium 80 MG TABLET PO (07:59)
[2020-12-21] MEDS: Sertraline HCL 100 MG TABLET 200 MG PO (08:00)
[2020-12-21] MEDS: Rivaroxaban 10 MG TABLET PO ×2 (08:00→10:55)
[2020-12-21] MEDS: lisinopriL 40 MG TABLET PO (08:00)
[2020-12-21] MEDS: amLODIPine Besylate 5 MG TABLET PO (08:00)
[2020-12-21] MEDS: Cholecalciferol (Vitamin D3) 25 MCG TABLET PO (08:00)
[2020-12-21] MEDS: metFORMIN HCl ER 500 MG TAB.ER.24H 1000 MG PO ×2 (08:00→21:18)
[2020-12-21] MEDS: Mirabegron 25 MG TAB.ER.24H PO (08:00)
[2020-12-21 08:11] LABS: Glucose, Whole Blood 225 mg/dL (60-115)
--- NOTE | 2020-12-21 10:02 | HO.PM.IMPN ---
Subjective Subjective Date of Service: 12/21/20 Interval History: Seen in f/u for CAP, asthma, went into AFIB with RVR overnight, assymptomatic Review of Systems Gen: no fever Resp: no sob, no cough CV: no chest, no CHICAS, no leg edema, no palpitations GI: No n/v, no abd pain Neuro: No confusion Physical Exam Vital Signs: Vital Signs: Last Vital Signs Temp 96.3 F L 12/21/20 07:17 Pulse 133 H 12/21/20 08:00 Resp 19 12/21/20 07:17 BP 112/64 12/21/20 08:00 Pulse Ox 96 12/21/20 07:17 Body Mass Index 30.1 General: AO X 3, no acute distress Resp: CTA bilateral CVS: S1,S2, iregular iregular GI: +BS, NT, no distention Skin: No rash Neuro: motor grossly intact Psych: appropriate affect Objective Data Active Medications Acetaminophen (Acetaminophen 325 Mg Tablet) 650 mg PO Q6H PRN PRN Reason: Pain, Mild (Pain Scale 1-3) Last Admin: 12/21/20 04:26 Dose: 650 mg Documented by: KAYLIE Albuterol/Ipratropium (Albuterol/Iprat 2.5/0.5mg 3 Ml Ampul.Neb) 3 ml INHALE RQ4H WHILE AWAKE [facility] Last Admin: 12/21/20 07:31 Dose: 3 ml Documented by: CURTIS Albuterol/Ipratropium (Albuterol/Iprat 2.5/0.5mg 3 Ml Ampul.Neb) 3 ml INHALE Q2H PRN PRN Reason: wheezing and shortness of dayan Amlodipine Besylate (Amlodipine Besylate 5 Mg Tablet) 5 mg PO BID [facility]; Protocol Last Admin: 12/21/20 08:00 Dose: 5 mg Documented by: JULI Atorvastatin Calcium (Atorvastatin Calcium 80 Mg Tablet) 80 mg PO DAILY [facility] Last Admin: 12/21/20 07:59 Dose: 80 mg Documented by: JULI Clonazepam (Clonazepam 0.5 Mg Tablet) 0.5 mg PO BEDTIME PRN PRN Reason: Anxiety Famotidine (Famotidine 20 Mg Tablet) 20 mg PO BEDTIME [facility] Last Admin: 12/20/20 22:04 Dose: 20 mg Documented by: ALEENA Fluticasone Propionate (Fluticasone Propionate Nasal 16 Gm [place]) 1 spray NOSTRIL-B DAILY [facility] Guaifenesin (Guaifenesin 100 Mg/5 Ml Liquid) 5 ml PO Q6H PRN PRN Reason: Cough Ceftriaxone Sodium 1 gm/ (Sodium Chloride) 50 mls @ 100 mls/hr IV Q24H [facility] Azithromycin 500 mg/ Sodium (Chloride) 250 mls @ 125 mls/hr IV Q24H [facility] Insulin Human Lispro (Insulin Lispro 100 Unit/Ml 3 Ml Vial) 0 unit SUBCUT QIDACHS [facility]; Protocol Last Admin: 12/21/20 07:58 Dose: 4 unit Documented by: JULI Lisinopril (Lisinopril 40 Mg Tablet) 40 mg PO DAILY [facility]; Protocol Last Admin: 12/21/20 08:00 Dose: 40 mg Documented by: JULI Loratadine (Loratadine 10 Mg Tablet) 10 mg PO DAILY PRN PRN Reason: Allergy Symptoms Magnesium Hydroxide (Milk Of Magnesia 30 Ml Oral.Susp) 30 ml PO DAILY PRN PRN Reason: Constipation Melatonin (Melatonin 3 Mg Tablet) 6 mg PO BEDTIME PRN PRN Reason: Insomnia Metformin HCl (Metformin Hcl Er 500 Mg Tab.Er.24h) 1,000 mg PO BID [facility] Last Admin: 12/21/20 08:00 Dose: 1,000 mg Documented by: JULI Methylprednisolone Sodium Succinate (Methylprednisolone Sod Succ 40 Mg/Ml Vial) 40 mg IVPUSH BID [facility] Last Admin: 12/21/20 07:59 Dose: 40 mg Documented by: JULI Mirabegron (Mirabegron 25 Mg Tab.Er.24h) 25 mg PO DAILY [facility] Last Admin: 12/21/20 08:00 Dose: 25 mg Documented by: JULI Ondansetron HCl (Ondansetron Hcl 4 Mg/2 Ml Vial) 4 mg IVPUSH Q8H PRN PRN Reason: Nausea and Vomiting Pharmacy Consult (Consult Rx Perform Med Rec) 1 each MISCELLANE ONCE PRN PRN Reason: Consult order Pioglitazone HCl (Pioglitazone Hcl 15 Mg Tablet) 15 mg PO BID [facility] Last Admin: 12/21/20 08:01 Dose: 15 mg Documented by: JULI Rivaroxaban (Rivaroxaban 10 Mg Tablet) 10 mg PO DAILY [facility] Last Admin: 12/21/20 08:00 Dose: 10 mg Documented by: JULI Sertraline HCl (Sertraline Hcl 100 Mg Tablet) 200 mg PO DAILY [facility] Last Admin: 12/21/20 08:00 Dose: 200 mg Documented by: JULI Sodium Chloride (0.9 % Sodium Chloride Flush 3 Ml Syringe) 3 ml IVFLUSH QSHIFT [facility] Last Admin: 12/21/20 08:02 Dose: 3 ml Documented by: JULI Vitamin D (Cholecalciferol (Vitamin D3) 25 Mcg Tablet) 25 mcg PO DAILY [facility] Last Admin: 12/21/20 08:00 Dose: 25 mcg Documented by: JULI Labs CBC & Chem 7: 12/20/20 11:07 12/20/20 11:07 Microbiology Microbiology Results: Microbiology 12/20/20 13:17 Blood Culture - Preliminary Blood - Venous Prelim: GPC Gram Stain only Assessment and Plan (1) Type 2 diabetes mellitus with hyperglycemia: Status: Acute (2) Pneumonia: Status: Acute (3) Afib: Status: Acute (4) Diabetes: Status: Acute Assessment and Plan: ?? ? 60 year female with diabetes, HTN, HLD, asthm here with sob, cough and found to have sepsis due to pneumonia and acute exacrerbation of asthma. Sepsis due to Pneumonia, meet criteria with tachycardia, leukopenia- -treate underlying pneumonni Community acquired? pneumonia -Treat with Ceftriaxone and Azithromycin D2 Asthma exacerbation -Treat with bronchodilators (use xopenex d/t tachycardia) Diabetes--contidue Metoformin, Actos, add sliding scale insulin, check sugars before meals and at bedtime HTN--continue Lisinopril,? change Norvasc to cardizem as above HLD--continue Rozuvostatin New AFIB with rapid response-- [id number] = 3 Add cardizem 30 qid, cardiology consult Echo cardiololgy consultation IV cardizem if heart rate persistently high Tobacco dependence--NRT, coucel Quality Stroke Does the patient have a stroke diagnosis?: No VTE Prior VTE?: No VTE Risk Level:: Medical - moderate - high VTE Device Contraindication: Treatment Not Indicated VTE Drug Contraindication: N/A - Med Ordered
--- NOTE | 2020-12-21 10:03 | P.CDIC_ITS ---
CDI Concurrent Query Documentation Clarification: PHYSICIAN'S DOCUMENTATION REQUEST Date of Query: 12/21/20 1004 Patient Name: Zee Elder Admit Date: 12/20/20 Dear Doctor, Please review the following and provide your response in the progress notes. Clinical Indicators: The diagnosis of asthma was documented in the record on [enter date]. Additional clinical indicators from the record include: Risk Factors/Clinical Indicators/Treatments Admit with Sepsis, Pneumonia, Asthma Exacerbation, new onset Atrial Fibrillation. Based on the above, please clarify in the Progress Notes further specificity regarding the type and acuity of the asthma: Type: * Mild intermittent - less than 2x/week * Mild persistent - more than 2x/week but not daily * Moderate persistent - daily and may restrict physical activity * Severe persistent - throughout the day with frequent attacks, limiting activities * Exercise induced * Chronic obstructive asthma and indicate if with acute lower respiratory infection * Asthma with underlying COPD and indicate if with acute lower respiratory infection * Other ? please specify * Unable to determine Acuity: * With acute exacerbation * With status asthmaticus * Uncomplicated * Unable to determine Use of terms such as suspected, likely, concern for, or probable (associated with a specific diagnosis that is being evaluated, monitored, or treated as if it exists) are acceptable and can be coded in the inpatient setting, when documented at the time of discharge. Thank you, Gretchen Martinez RN Extension: [phone] Please use your independent medical judgment in providing your response. THIS QUERY IS PART OF THE PERMANENT MEDICAL RECORD Provider Response: Other Other Diagnosis: acute exacrebation of asthma
--- NOTE | 2020-12-21 10:03 | MHC.CDI.CONC ---
CDI Concurrent Query Documentation Clarification: PHYSICIAN'S DOCUMENTATION REQUEST Date of Query: 12/21/20 1004 Patient Name: Zee Elder Admit Date: 12/20/20 Dear Doctor, Please review the following and provide your response in the progress notes. Clinical Indicators: The diagnosis of asthma was documented in the record on [enter date]. Additional clinical indicators from the record include: Risk Factors/Clinical Indicators/Treatments Admit with Sepsis, Pneumonia, Asthma Exacerbation, new onset Atrial Fibrillation. Based on the above, please clarify in the Progress Notes further specificity regarding the type and acuity of the asthma: Type: Mild intermittent - less than 2x/week Mild persistent - more than 2x/week but not daily Moderate persistent - daily and may restrict physical activity Severe persistent - throughout the day with frequent attacks, limiting activities Exercise induced Chronic obstructive asthma and indicate if with acute lower respiratory infection Asthma with underlying COPD and indicate if with acute lower respiratory infection Other ? please specify Unable to determine Acuity: With acute exacerbation With status asthmaticus Uncomplicated Unable to determine Use of terms such as suspected, likely, concern for, or probable (associated with a specific diagnosis that is being evaluated, monitored, or treated as if it exists) are acceptable and can be coded in the inpatient setting, when documented at the time of discharge. Thank you, Gretchen Martinez RN Extension: [phone] Please use your independent medical judgment in providing your response. THIS QUERY IS PART OF THE PERMANENT MEDICAL RECORD Provider Response: Other Other Diagnosis: acute exacrebation of asthma
[2020-12-21] MEDS: Fluticasone Propionate Nasal 16 GM SPRAY 1 SPRAY NOSTRIL-B (10:11)
--- NOTE | 2020-12-21 10:30 | PM.CNCAR ---
History of Present Illness History of Present Illness Date of Service: 12/21/20 Requesting physician: [facility] Consult reason: atrial fibrillation Chief complaint: Asthma pneumonia Narrative: I was requested to [facility]ee in cardiology consultation today for atrial fibrillation. History was obtained from the patient. Patient has prior history of hypertension, diabetes, asthma. Came to the hospital with increasing cough nonproductive since last . No fever or chills. She felt like she might have had pneumonia. She came to the hospital was noted to have asthma axis ablation and right middle lobe pneumonia. She came in yesterday morning on initial EKG she was in sinus rhythm. Last night she converted to atrial fibrillation rapid ventricular response. She says she currently feels shaky and also noticed some palpitations this morning. She says she is not feeling well. She looks somewhat toxic. Denies any lightheadedness, syncope, chest pain. Continues to have cough. Continues to have atrial fibrillation rapid ventricular response. She did get 10 mg of Xarelto this morning is DVT prophylaxis. She is currently getting IV antibiotics. Review of Systems Constitutional: Constitutional: Denies chills, Reports fatigue, Denies fever(s) and Reports malaise ENT: Reports system reviewed and no additional complaints, except as documented Cardiovascular: Cardiovascular: Denies chest pain, Reports rapid heart rate, Denies lightheadedness, Reports palpitations and Reports dyspnea Respiratory: Respiratory: Reports cough and Reports dyspnea Gastrointestinal: Gastrointestinal: Reports no additional gastrointestinal complaints Genitourinary: Genitourinary: Reports no additional female genitourinary complaints Musculoskeletal: Musculoskeletal: Reports no additional musculoskeletal complaints Integumentary/Breasts: Skin/Breast: Reports system reviewed and no additional complaints, except as docu Neurologic: Reports system reviewed and no additional complaints, except as documented Endocrine: Endocrine: Reports no additional endocrine complaints, Reports fatigue and Reports palpitations PMFSH Past Medical History Medical History Bronchitis Diabetes Diabetic 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 Dyslipidemia GERD (gastroesophageal reflux disease) Hypertension Obesity (BMI 30-39.9) Osteopenia Vitamin D deficiency Family History Family History Father Heart failure Diabetes mellitus Mother Cholangiocarcinoma Diabetes mellitus Family history of hypertension Brother Lung cancer Family/Other Breast cancer Surgical History Surgical History History of esophagogastroduodenoscopy (EGD) Hx of colonoscopy Hx of foot surgery Social History Social History Household Members: Children Housing: Apartment Do you presently have visiting nurse or other home services: Yes Alcohol intake: current Alcohol intake frequency: holidays/special occasions only Alcohol type: beer Patient Tobacco Use Status: Current everyday Tobacco user Cigarettes Per Day: 12 Advance Directives Date on File: 12/19/20 Meds Allergies Allergy/AdvReac Type Severity Reaction Status Date / Time ibuprofen [IBUPROFEN] Allergy Severe SICK TO Verified 09/24/20 15:50 MY STOMACH ciprofloxacin [From CIPRO] Allergy Intermediate SICK Verified 09/24/20 15:50 levofloxacin [From LEVAQUIN] Allergy Intermediate SICK , Verified 11/02/20 11:26 nausea, dizziness x days flu vaccine Allergy Intermediate Swelling Uncoded 04/10/20 21:07 Active Medications: Current Medications Acetaminophen (Acetaminophen 325 Mg Tablet) 650 mg PO Q6H PRN PRN Reason: Pain, Mild (Pain Scale 1-3) Last Admin: 12/21/20 04:26 Dose: 650 mg Documented by: Atorvastatin Calcium (Atorvastatin Calcium 80 Mg Tablet) 80 mg PO DAILY [facility] Last Admin: 12/21/20 07:59 Dose: 80 mg Documented by: Clonazepam (Clonazepam 0.5 Mg Tablet) 0.5 mg PO BEDTIME PRN PRN Reason: Anxiety Diltiazem HCl (Diltiazem Hcl 30 Mg Tablet) 30 mg PO QID [facility]; Protocol Famotidine (Famotidine 20 Mg Tablet) 20 mg PO BEDTIME [facility]AN[facility] Last Admin: 12/20/20 22:04 Dose: 20 mg Documented by: Flecainide Acetate (Flecainide Acetate 50 Mg Tablet) 150 mg PO ONCE ONE Stop: 12/21/20 10:29 Fluticasone Propionate (Fluticasone Propionate Nasal 16 Gm [place]) 1 spray NOSTRIL-B DAILY [facility] Last Admin: 12/21/20 10:11 Dose: 1 spray Documented by: Guaifenesin (Guaifenesin 100 Mg/5 Ml Liquid) 5 ml PO Q6H PRN PRN Reason: Cough Ceftriaxone Sodium 1 gm/ (Sodium Chloride) 50 mls @ 100 mls/hr IV Q24H [facility] Azithromycin 500 mg/ Sodium (Chloride) 250 mls @ 125 mls/hr IV Q24H [facility] Insulin Human Lispro (Insulin Lispro 100 Unit/Ml 3 Ml Vial) 0 unit SUBCUT QIDACHS [facility]; Protocol Last Admin: 12/21/20 07:58 Dose: 4 unit Documented by: Levalbuterol HCl (Levalbuterol Hcl 1.25 Mg/0.5 Ml Vial.Neb) 1.25 mg INHALE RQ4H WHILE AWAKE [facility] Levalbuterol HCl (Levalbuterol Hcl 1.25 Mg/0.5 Ml Vial.Neb) 1.25 mg INHALE Q2H PRN PRN Reason: wheezing and shortness of dayan Lisinopril (Lisinopril 40 Mg Tablet) 40 mg PO DAILY [facility]; Protocol Last Admin: 12/21/20 08:00 Dose: 40 mg Documented by: Loratadine (Loratadine 10 Mg Tablet) 10 mg PO DAILY PRN PRN Reason: Allergy Symptoms Magnesium Hydroxide (Milk Of Magnesia 30 Ml Oral.Susp) 30 ml PO DAILY PRN PRN Reason: Constipation Melatonin (Melatonin 3 Mg Tablet) 6 mg PO BEDTIME PRN PRN Reason: Insomnia Metformin HCl (Metformin Hcl Er 500 Mg Tab.Er.24h) 1,000 mg PO BID [facility] Last Admin: 12/21/20 08:00 Dose: 1,000 mg Documented by: Methylprednisolone Sodium Succinate (Methylprednisolone Sod Succ 40 Mg/Ml Vial) 40 mg IVPUSH BID [facility] Last Admin: 12/21/20 07:59 Dose: 40 mg Documented by: Mirabegron (Mirabegron 25 Mg Tab.Er.24h) 25 mg PO DAILY [facility] Last Admin: 12/21/20 08:00 Dose: 25 mg Documented by: Ondansetron HCl (Ondansetron Hcl 4 Mg/2 Ml Vial) 4 mg IVPUSH Q8H PRN PRN Reason: Nausea and Vomiting Pharmacy Consult (Consult Rx Perform Med Rec) 1 each MISCELLANE ONCE PRN PRN Reason: Consult order Pioglitazone HCl (Pioglitazone Hcl 15 Mg Tablet) 15 mg PO BID [facility] Last Admin: 12/21/20 08:01 Dose: 15 mg Documented by: Rivaroxaban (Rivaroxaban 20 Mg Tablet) 20 mg PO DAILY [facility] Sertraline HCl (Sertraline Hcl 100 Mg Tablet) 200 mg PO DAILY [facility] Last Admin: 12/21/20 08:00 Dose: 200 mg Documented by: Sodium Chloride (0.9 % Sodium Chloride Flush 3 Ml Syringe) 3 ml IVFLUSH QSHIFT [facility] Last Admin: 12/21/20 08:02 Dose: 3 ml Documented by: Vitamin D (Cholecalciferol (Vitamin D3) 25 Mcg Tablet) 25 mcg PO DAILY [facility] Last Admin: 12/21/20 08:00 Dose: 25 mcg Documented by: Home Medications Medication Instructions Recorded Confirmed Last Taken Type albuterol sulfate 2.5 mg INHALATION Q4-6H PRN 02/26/20 12/20/20 Unknown History loratadine 10 mg tablet 10 mg PO DAILY PRN 02/26/20 12/20/20 Unknown History sertraline 100 mg tablet 200 mg PO DAILY 02/26/20 12/20/20 Unknown History amlodipine 5 mg tablet 5 mg PO BID 09/24/20 12/20/20 Unknown History famotidine 20 mg tablet 20 mg PO BEDTIME 09/24/20 12/20/20 Unknown History lisinopril 30 mg tablet 40 mg PO DAILY tab 09/24/20 12/20/20 Unknown History pioglitazone 15 mg tablet 15 mg PO BID 11/02/20 12/20/20 Unknown History clonazepam 0.5 mg tablet 1 tab PO BEDTIME PRN 12/20/20 12/20/20 Unknown History fluticasone propionate 50 1 spray INTRANASAL DAILY 12/20/20 12/20/20 Unknown History mcg/actuation nasal spray,suspension Physical Exam Vital Signs: Vital Signs: Last Vital Signs Temp 96.3 F L 12/21/20 07:17 Pulse 133 H 12/21/20 08:00 Resp 12/21/20 07:17 BP 112/64 12/21/20 08:00 Pulse Ox 96 12/21/20 07:17 Body Mass Index 30.1 Const: General: cooperative, comfortable, alert, awake and ill appearing Nutritional Appearance: overweight Orientation/consciousness: patient oriented x3 HENMT: Head: Yes normocephalic and Yes atraumatic Neck: Neck: Yes trachea midline, Yes supple and Yes no JVD Resp: Effort & Inspection: decreased respiratory effort Auscultation: crackles bilateral at the base and no wheezes Cardio: Jugular venous distension: no JVD Palpation: normal PMI Rate: tachycardic Rhythm: abnormal rhythm irregularly irregular Heart sounds: S1 normal heart sound present, S2 normal heart sound present, no click, no gallops and no murmurs GI: Auscultation: normal bowel sounds Skin: General skin exam: no rashes or lesions noted Neuro: General: patient oriented x3 and no focal motor deficits Extrem: General: Yes no clubbing, cyanosis or edema Psych: Appearance: grossly normal Results Labs and Meds Result diagrams: 12/20/20 11:07 12/20/20 11:07 Lab results: Laboratory Results - last 24 hr 12/20/20 12/20/20 12/20/20 11:07 11:07 11:07 WBC 2.8 L RBC 4.53 Hgb 15.0 Hct 42.9 MCV 94.7 MCH 33.1 H MCHC 35.0 RDW 12.9 Plt Count 45 L D MPV 9.7 Immature Gran % (Auto) 1.1 H Neut % (Auto) 86.6 H Lymph % (Auto) 9.0 L Long % (Auto) 2.9 Eos % (Auto) 0.0 Baso % (Auto) 0.4 Lymph # (Auto) 0.3 L Long # (Auto) 0.1 Eos # (Auto) 0.0 Baso # (Auto) 0.0 Abs Immat Gran (auto) 0.03 Absolute Neuts (auto) 2.4 Absolute Nucleated RBC 0.000 Nucleated RBC % (auto) 0.0 Smear Tech's Comments VERIFIED ESR Sodium 131 L Potassium 3.7 Chloride 100 Carbon Dioxide 21 L Anion Gap 14 BUN 13 Creatinine 0.73 Estim Creat Clear Calc 78.5 Estimated GFR > 60 POC Glucose Random Glucose 152 H Lactic Acid Calcium 8.3 L D Troponin I High Sens 4.0 B-Natriuretic Peptide 10 Urine Color Urine Appearance Urine pH Ur Specific [place] Urine Protein Urine Glucose (UA) Urine Ketones Urine Blood Urine Nitrite Ur Leukocyte Esterase Urine RBC Urine WBC Ur Squamous Epith Cells Urine Bacteria Hyaline Casts Granular Casts Coronavirus (PCR) Influenza Type A (PCR) Influenza Type B (PCR) RSV RNA Qual (PCR) 12/20/20 12/20/20 12/20/20 11:07 11:07 13:17 WBC RBC Hgb Hct MCV MCH MCHC RDW Plt Count MPV Immature Gran % (Auto) Neut % (Auto) Lymph % (Auto) Long % (Auto) Eos % (Auto) Baso % (Auto) Lymph # (Auto) Long # (Auto) Eos # (Auto) Baso # (Auto) Abs Immat Gran (auto) Absolute Neuts (auto) Absolute Nucleated RBC Nucleated RBC % (auto) Smear Tech's Comments ESR 23 H Sodium Potassium Chloride Carbon Dioxide Anion Gap BUN Creatinine Estim Creat Clear Calc Estimated GFR POC Glucose Random Glucose Lactic Acid 1.2 Calcium Troponin I High Sens B-Natriuretic Peptide Urine Color Urine Appearance Urine pH Ur Specific [place] Urine Protein Urine Glucose (UA) Urine Ketones Urine Blood Urine Nitrite Ur Leukocyte Esterase Urine RBC Urine WBC Ur Squamous Epith Cells Urine Bacteria Hyaline Casts Granular Casts Coronavirus (PCR) NEGATIVE Influenza Type A (PCR) NEGATIVE Influenza Type B (PCR) NEGATIVE RSV RNA Qual (PCR) NEGATIVE 12/20/20 12/20/20 12/20/20 17:28 19:42 21:05 WBC RBC Hgb Hct MCV MCH MCHC RDW Plt Count MPV Immature Gran % (Auto) Neut % (Auto) Lymph % (Auto) Long % (Auto) Eos % (Auto) Baso % (Auto) Lymph # (Auto) Long # (Auto) Eos # (Auto) Baso # (Auto) Abs Immat Gran (auto) Absolute Neuts (auto) Absolute Nucleated RBC Nucleated RBC % (auto) Smear Tech's Comments ESR Sodium Potassium Chloride Carbon Dioxide Anion Gap BUN Creatinine Estim Creat Clear Calc Estimated GFR POC Glucose 270 H 247 H Random Glucose Lactic Acid Calcium Troponin I High Sens B-Natriuretic Peptide Urine Color YELLOW Urine Appearance HAZY Urine pH 5.5 Ur Specific [place] 1.020 Urine Protein 2+ H Urine Glucose (UA) NEG Urine Ketones 5 Urine Blood 1+ H Urine Nitrite NEG Ur Leukocyte Esterase NEG Urine RBC 0 Urine WBC 0 Ur Squamous Epith Cells 1+ Urine Bacteria NONE Hyaline Casts 0-2 Granular Casts 1-4 Coronavirus (PCR) Influenza Type A (PCR) Influenza Type B (PCR) RSV RNA Qual (PCR) 12/21/20 07:45 WBC RBC Hgb Hct MCV MCH MCHC RDW Plt Count MPV Immature Gran % (Auto) Neut % (Auto) Lymph % (Auto) Long % (Auto) Eos % (Auto) Baso % (Auto) Lymph # (Auto) Long # (Auto) Eos # (Auto) Baso # (Auto) Abs Immat Gran (auto) Absolute Neuts (auto) Absolute Nucleated RBC Nucleated RBC % (auto) Smear Tech's Comments ESR Sodium Potassium Chloride Carbon Dioxide Anion Gap BUN Creatinine Estim Creat Clear Calc Estimated GFR POC Glucose 225 H Random Glucose Lactic Acid Calcium Troponin I High Sens B-Natriuretic Peptide Urine Color Urine Appearance Urine pH Ur Specific [place] Urine Protein Urine Glucose (UA) Urine Ketones Urine Blood Urine Nitrite Ur Leukocyte Esterase Urine RBC Urine WBC Ur Squamous Epith Cells Urine Bacteria Hyaline Casts Granular Casts Coronavirus (PCR) Influenza Type A (PCR) Influenza Type B (PCR) RSV RNA Qual (PCR) echo, November 2020 Conclusions: -? 1. Normal LV systolic function with impaired relaxation ? ? ? filling pattern? 2. Normal cardiac valvular Doppler ? 3. Normal RV systolic pressure ? 4. No pericardial effusion ? ? ECG Interpretation: EKG on admission shows sinus rhythm without acute changes EKG last night shows atrial fibrillation with rapid ventricular response with nonspecific ST changes Imaging Radiologist's impression: Impressions Chest X-Ray 12/20/20 10:49 IMPRESSION: Slight patchy opacity right midlung likely developing infiltrate. Assessment and Plan (1) Afib: Status: Acute Patient developed atrial fibrillation with rapid ventricular response last night while in the hospital being observed. She has no prior history of atrial fibrillation. She has symptoms of palpitations. Rate is difficult control. Most likely exacerbated by asthma exacerbation and pneumonia. Given that is less than 24 hours and she has already received partial dose of Xarelto, completed to 20 mg daily. Will try to get her back into sinus rhythm with chemical cardioversion. Will give her or Cardizem IV bolus 10 mg followed by flecainide 150 mg. If she does not convert by 1st dose of flecainide in 1 hour can give another flecainide 150 mg. Start on IV Cardizem drip if she remains in atrial fibrillation with rapid ventricular response. If she converts with oral flecainide will start her on maintenance dose 50 mg b.i.d.. Echocardiogram to evaluate for LV systolic and diastolic function and biatrial chamber size. CHADSVASc score of 3. Will need oral anticoagulation, started on Xarelto 20 mg daily. Bilateral rales appears to be either atelectasis, unlikely to be heart failure with no other signs of fluid overload and normal BNP. Will continue to monitor clinically. If she converts to sinus rhythm, 12 lead EKG needs to be performed. Will follow with the patient. Thank you for allowing us to partake in the care Procedures Date of Service Date of Service: 12/21/20
[2020-12-21] MEDS: Flecainide Acetate 50 MG TABLET 150 MG PO (10:55)
[2020-12-21] MEDS: dilTIAZem HCL 50 MG/10 ML VIAL 10 MG IVPUSH (10:58)
[2020-12-21 11:29] LABS: Glucose, Whole Blood 323 mg/dL (60-115)
--- NOTE | 2020-12-21 12:04 | PC.NURSE ---
AFIB ON TELE, HR 130-150S WITH ACTIVITY. STATES FEELS SHAKEY - DENIES CHEST PAIN. CARDIOLOGY CONSULT/MD BEDSIDE FOR EVAL. PER MD ORDER: ADMINISTERED DILTIAZEM 10 MG IVP X 1, FLECAINIDE ACETATE 150 MG PO X 1, XARELTO 20 MG PO (TOTAL). CONVERTED TO SR AT 1157. PERFORMANCE TESTER NOTIFIED. WILL CONTINUE TO MONITOR.
[2020-12-21] MEDS: cefTRIAXone sodium 1 GM in 0.9 % Sodium Chloride 50 ML IV (14:34)
[2020-12-21] MEDS: Azithromycin 500 MG in 0.9 % Sodium Chloride 250 ML 125 MG IV (14:56)
[2020-12-21 16:06] LABS: Glucose, Whole Blood 292 mg/dL (60-115)
--- NOTE | 2020-12-21 16:20 | MHC.CM.PN ---
PT REPORTS SHE LIVES WITH HER SON/GLASS BLOWING INSTRUCTOR WHO PROVIDES DAILY CARE. PT DENIES HAVING VNA SERVICES PT HAS A NEBULIZER, CANE AND WALKER AT HOME. PT REPORTS HER PCP IS HARIS LINDER HCP ON FILE IMM DELIVERED CURRENT DC PLAN IS HOME WITH RESUMPTION OF [employer] IN[employer]CTOR SON TO TRANSPORT
[2020-12-21 19:56] LABS: Glucose, Whole Blood 322 mg/dL (60-115)
[2020-12-21] MEDS: Flecainide Acetate 50 MG TABLET PO (21:18)
[2020-12-21] MEDS: Famotidine 20 MG TABLET PO (21:18)
[2020-12-22] VITALS (13 sets, daily range): BP systolic 111–126; BP diastolic 43–73; PULSE 64–98; RESP 18–20; TEMP 36.4–37.2; O2SAT 93–96
--- NOTE | 2020-12-22 | ECG_ITS ---
Test Reason : Status post converted to sinus rhythm on flecainide Blood Pressure : / mmHG Vent. Rate : 086 BPM Atrial Rate : 086 BPM P-R Int : 188 ms QRS Dur : 086 ms QT Int : 364 ms P-R-T Axes : 066 020 051 degrees QTc Int : 435 ms Normal sinus rhythm Nonspecific ST abnormality Abnormal ECG When compared with ECG of 20-DEC-2020 22:25, Sinus rhythm has replaced Atrial fibrillation ST elevation now present in Inferior leads QT has lengthened Vent. rate has decreased Referred By: Yovanny Reid Electronically Signed By:PHIL SANTIZO
[2020-12-22] MEDS: Acetaminophen 325 MG TABLET 650 MG PO (04:45)
[2020-12-22 07:16] LABS: Glucose, Whole Blood 243 mg/dL (60-115)
[2020-12-22] MEDS: Sertraline HCL 100 MG TABLET 200 MG PO (08:29)
[2020-12-22] MEDS: Mirabegron 25 MG TAB.ER.24H PO (08:29)
[2020-12-22] MEDS: metFORMIN HCl ER 500 MG TAB.ER.24H 1000 MG PO ×2 (08:29→21:06)
[2020-12-22] MEDS: methylPREDNISolone Sod Succ 40 MG/ML VIAL IVPUSH ×2 (08:29→19:58)
[2020-12-22] MEDS: Insulin Lispro 100 UNIT/ML 3 ML VIAL SUBCUT ×4 (08:29→21:06)
[2020-12-22] MEDS: Rivaroxaban 20 MG TABLET PO (08:29)
[2020-12-22] MEDS: Cholecalciferol (Vitamin D3) 25 MCG TABLET PO (08:29)
[2020-12-22] MEDS: Flecainide Acetate 50 MG TABLET PO ×2 (08:30→19:58)
[2020-12-22] MEDS: dilTIAZem HCL CD 120 MG CAP.ER.DEG PO (08:31)
[2020-12-22] MEDS: lisinopriL 40 MG TABLET PO (08:31)
[2020-12-22] MEDS: 0.9 % Sodium Chloride Flush 3 ML SYRINGE IVFLUSH ×2 (08:32→19:59)
[2020-12-22] MEDS: Atorvastatin Calcium 80 MG TABLET PO (08:33)
[2020-12-22] MEDS: Fluticasone Propionate Nasal 16 GM SPRAY 1 SPRAY NOSTRIL-B (08:36)
[2020-12-22 08:47] LABS: Hematocrit 39.8 % (37-47); Hemoglobin 13.6 g/dl (12.0-16.0); Mean Corpuscular HGB Conc 34.2 g/dl (31.0-35.0); Mean Corpuscular Hemoglobin 32.7 pg (27.0-33.0); Mean Corpuscular Volume 95.7 fL (80-98); Mean Platelet Volume 12.4 fL (9.4-12.3); Red Blood Count 4.16 X10*6/uL (4.20-5.50); Red Cell Distribution Width 13.1 % (11.0-16.0); White Blood Count 10.1 X10*3/uL (4.8-10.8)
[2020-12-22 08:48] LABS: Platelet Count 61 X10*3/uL (160-400)
[2020-12-22 09:22] LABS: Anion Gap 13 (12-20); Blood Urea Nitrogen 29 mg/dL (9-16); Calcium 8.9 mg/dL (8.4-10.2); Carbon Dioxide 22 mmol/L (22-29); Chloride 101 mmol/L (96-108); Creatinine Clr Calc Pharmacy 50.7; Estimated Glomerular Filt Rate 49; Glucose Random 300 mg/dL (60-115); Potassium 4.2 mmol/L (3.3-5.1); Sodium 132 mmol/L (135-145)
--- NOTE | 2020-12-22 09:26 | P.PNIM_ITS ---
Subjective Subjective Date of Service: 12/22/20 Interval History: Seen in f/u AFIB, pneumonia and ashtma exacerbation. Feel better but not optimal, feels that lungs re congested Review of Systems .natasha Physical Exam Vital Signs: Vital Signs: Last Vital Signs Temp 98 F 12/22/20 07:10 Pulse 98 12/22/20 07:55 Resp 19 12/22/20 07:10 BP 126/73 12/22/20 08:31 Pulse Ox 93 12/22/20 07:10 Body Mass Index 30.1 General: AO X 3, no acute distress Resp: CTA bilateral CVS: S1,S2,RRR GI: +BS, NT, no distention Skin: No rash Neuro: motor grossly intact Psych: appropriate affect Objective Data Active Medications Acetaminophen (Acetaminophen 325 Mg Tablet) 650 mg PO Q6H PRN PRN Reason: Pain, Mild (Pain Scale 1-3) Last Admin: 12/22/20 04:45 Dose: 650 mg Documented by: LENORA Atorvastatin Calcium (Atorvastatin Calcium 80 Mg Tablet) 80 mg PO DAILY [facility] Last Admin: 12/22/20 08:33 Dose: 80 mg Documented by: NAVEED Clonazepam (Clonazepam 0.5 Mg Tablet) 0.5 mg PO BEDTIME PRN PRN Reason: Anxiety Diltiazem HCl (Diltiazem Hcl Cd 120 Mg Cap.Er.Deg) 120 mg PO DAILY [facility]; Protocol Last Admin: 12/22/20 08:31 Dose: 120 mg Documented by: NAVEED Famotidine (Famotidine 20 Mg Tablet) 20 mg PO BEDTIME [facility] Last Admin: 12/21/20 21:18 Dose: 20 mg Documented by: LENORA Flecainide Acetate (Flecainide Acetate 50 Mg Tablet) 50 mg PO BID [facility] Last Admin: 12/22/20 08:30 Dose: 50 mg Documented by: NAVEED Fluticasone Propionate (Fluticasone Propionate Nasal 16 Gm [place]) 1 spray NOSTRIL-B DAILY [facility] Last Admin: 12/22/20 08:36 Dose: 1 spray Documented by: NAVEED Guaifenesin (Guaifenesin 100 Mg/5 Ml Liquid) 5 ml PO Q6H PRN PRN Reason: Cough Ceftriaxone Sodium 1 gm/ (Sodium Chloride) 50 mls @ 100 mls/hr IV Q24H [facility] Last Infusion: 12/21/20 15:12 Dose: 0 mls/hr Documented by: JULI Azithromycin 500 mg/ Sodium (Chloride) 250 mls @ 125 mls/hr IV Q24H [facility] Last Infusion: 12/21/20 17:28 Dose: 0 mls/hr Documented by: JULI Insulin Human Lispro (Insulin Lispro 100 Unit/Ml 3 Ml Vial) 0 unit SUBCUT QIDACHS [facility]; Protocol Last Admin: 12/22/20 08:29 Dose: 4 unit Documented by: NAVEED Levalbuterol HCl (Levalbuterol Hcl 1.25 Mg/0.5 Ml Vial.Neb) 1.25 mg INHALE RQ4H WHILE AWAKE [facility] Last Admin: 12/22/20 07:55 Dose: 1.25 mg Documented by: RAY Levalbuterol HCl (Levalbuterol Hcl 1.25 Mg/0.5 Ml Vial.Neb) 1.25 mg INHALE Q2H PRN PRN Reason: wheezing and shortness of dayan Lisinopril (Lisinopril 40 Mg Tablet) 40 mg PO DAILY [facility]; Protocol Last Admin: 12/22/20 08:31 Dose: 40 mg Documented by: NAVEED Loratadine (Loratadine 10 Mg Tablet) 10 mg PO DAILY PRN PRN Reason: Allergy Symptoms Magnesium Hydroxide (Milk Of Magnesia 30 Ml Oral.Susp) 30 ml PO DAILY PRN PRN Reason: Constipation Melatonin (Melatonin 3 Mg Tablet) 6 mg PO BEDTIME PRN PRN Reason: Insomnia Metformin HCl (Metformin Hcl Er 500 Mg Tab.Er.24h) 1,000 mg PO BID [facility] Last Admin: 12/22/20 08:29 Dose: 1,000 mg Documented by: NAVEED Methylprednisolone Sodium Succinate (Methylprednisolone Sod Succ 40 Mg/Ml Vial) 40 mg IVPUSH BID [facility] Last Admin: 12/22/20 08:29 Dose: 40 mg Documented by: NAVEED Mirabegron (Mirabegron 25 Mg Tab.Er.24h) 25 mg PO DAILY [facility] Last Admin: 12/22/20 08:29 Dose: 25 mg Documented by: NAVEED Ondansetron HCl (Ondansetron Hcl 4 Mg/2 Ml Vial) 4 mg IVPUSH Q8H PRN PRN Reason: Nausea and Vomiting Pharmacy Consult (Consult Rx Perform Med Rec) 1 each MISCELLANE ONCE PRN PRN Reason: Consult order Pioglitazone HCl (Pioglitazone Hcl 15 Mg Tablet) 15 mg PO BID [facility] Last Admin: 12/22/20 08:29 Dose: 15 mg Documented by: NAVEED Rivaroxaban (Rivaroxaban 20 Mg Tablet) 20 mg PO DAILY [facility] Last Admin: 12/22/20 08:29 Dose: 20 mg Documented by: NAVEED Sertraline HCl (Sertraline Hcl 100 Mg Tablet) 200 mg PO DAILY [facility] Last Admin: 12/22/20 08:29 Dose: 200 mg Documented by: NAVEED Sodium Chloride (0.9 % Sodium Chloride Flush 3 Ml Syringe) 3 ml IVFLUSH QSHIFT [facility] Last Admin: 12/22/20 08:32 Dose: 3 ml Documented by: NAVEED Vitamin D (Cholecalciferol (Vitamin D3) 25 Mcg Tablet) 25 mcg PO DAILY [facility] Last Admin: 12/22/20 08:29 Dose: 25 mcg Documented by: NAVEED Labs CBC & Chem 7: 12/20/20 11:07 12/22/20 08:12 Labs: Laboratory Results - last 24 hr 12/21/20 12/21/20 12/21/20 11:22 15:56 19:47 Anion Gap Estim Creat Clear Calc Estimated GFR POC Glucose 323 H 292 H 322 H Random Glucose Calcium Magnesium 12/22/20 12/22/20 07:10 08:12 Anion Gap 13 Estim Creat Clear Calc 50.7 Estimated GFR 49 POC Glucose 243 H Random Glucose 300 H Calcium 8.9 D Magnesium 2.0 Microbiology Microbiology Results: Microbiology 12/20/20 13:17 Blood Culture - Preliminary Blood - Venous Prelim: GPC Gram Stain only 12/20/20 13:17 Blood Culture - Preliminary Blood - Venous Assessment and Plan (1) Type 2 diabetes mellitus with hyperglycemia: Status: Acute (2) Pneumonia: Status: Acute (3) Afib: Status: Acute (4) Diabetes: Status: Acute Assessment and Plan: ?? ? 60 year female with diabetes, HTN, HLD, asthm here with sob, cough and found to have sepsis due to pneumonia and acute exacrerbation of asthma. Sepsis due to Pneumonia, meet criteria with tachycardia, leukopenia- -treate underlying pneumonni Community acquired? pneumonia -Treat with Ceftriaxone and Azithromycin D3, change to PO Ceftin tomorrow for total of 7 days Asthma exacerbation -Treat with bronchodilators (use xopenex d/t tachycardia), change to solumedrol to predniosone for total of 5 days Diabetes--contidue Metoformin, Actos, add sliding scale insulin, check sugars b efore meals and at bedtime HTN--continue Lisinopril,? Norvasc changed to Cardizem to also control AFIB HLD--continue Rozuvostatin New AFIB with rapid response-- [id number] = 3 recieved a dose of IV cardizem, then started on oral cardizem 120 She converted to sinus rythm with Flecanide which will be continued at 50 bid She had an echo on November 11 showing normal LV and no valvular disease Dr. Reid has been following her. Tobacco dependence--NRT, coucel 1/2 gram positive cocci, likely contamination. awaiting final report Dispo: home tomorrow Quality Stroke Does the patient have a stroke diagnosis?: No VTE Prior VTE?: No VTE Risk Level:: Medical - moderate - high VTE Device Contraindication: Treatment Not Indicated VTE Drug Contraindication: N/A - Med Ordered
--- NOTE | 2020-12-22 10:39 | PM.PNCARD ---
Subjective Subjective Date of Service: 12/22/20 Principal diagnosis: Paroxysmal atrial fibrillation Interval history: After 1st dose of flecainide patient converted to sinus rhythm and has remained in sinus rhythm. Started on maintenance with flecainide as well as Cardizem and oral anticoagulation. Feels slightly better. Denies any jitteriness or palpitations. Still has shortness of breath. Review of Systems Constitutional: Reports lethargy and Reports malaise Cardiovascular: Reports no additional cardiovascular complaints Respiratory: Reports cough Gastrointestinal: Reports no additional gastrointestinal complaints Musculoskeletal: Reports no additional musculoskeletal complaints Skin/Breast: Reports system reviewed and no additional complaints, except as docu Reports system reviewed and no additional complaints, except as documented Psychiatric: Reports no additional psychiatric complaints Endocrine: Reports no additional endocrine complaints Physical Exam Vital Signs: Last Vital Signs Temp 98 F 12/22/20 07:10 Pulse 98 12/22/20 07:55 Resp 19 12/22/20 07:10 BP 126/73 12/22/20 08:31 Pulse Ox 93 12/22/20 07:10 Body Mass Index 30.1 Const General: cooperative, comfortable, no acute distress, alert and awake Nutritional Appearance: overweight Orientation/consciousness: patient oriented x3 Neck Neck: Yes trachea midline, Yes supple and Yes no JVD Resp Effort & Inspection: normal respiratory effort Auscultation: crackles (Coarse) on the right at the base Cardio Jugular venous distension: no JVD Palpation: normal PMI Rate: regular rate Rhythm: regular rhythm Heart sounds: S1 normal heart sound present, S2 normal heart sound present, no click, no gallops, no murmurs and no rubs GI Auscultation: normal bowel sounds Skin General skin exam: no rashes or lesions noted Neuro General: patient oriented x3 and no focal motor deficits Extrem General: Yes no clubbing, cyanosis or edema Psych Appearance: grossly normal Results Labs and Meds Result diagrams: 12/22/20 08:12 12/22/20 08:12 Lab results: Laboratory Results - last 24 hr 12/21/20 12/21/20 12/21/20 11:22 15:56 19:47 WBC RBC Hgb Hct MCV MCH MCHC RDW Plt Count MPV Absolute Nucleated RBC Nucleated RBC % (auto) Sodium Potassium Chloride Carbon Dioxide Anion Gap BUN Creatinine Estim Creat Clear Calc Estimated GFR POC Glucose 323 H 292 H 322 H Random Glucose Calcium Magnesium 12/22/20 12/22/20 12/22/20 07:10 08:12 08:12 WBC 10.1 RBC 4.16 L Hgb 13.6 Hct 39.8 MCV 95.7 MCH 32.7 MCHC 34.2 RDW 13.1 Plt Count 61 L D MPV 12.4 H Absolute Nucleated RBC 0.000 Nucleated RBC % (auto) 0.0 Sodium 132 L Potassium 4.2 Chloride 101 Carbon Dioxide 22 Anion Gap 13 BUN 29 H D Creatinine 1.13 Estim Creat Clear Calc 50.7 Estimated GFR 49 POC Glucose 243 H Random Glucose 300 H Calcium 8.9 D Magnesium 2.0 Progress Note: A&P Assessment and plan (1) Paroxysmal atrial fibrillation: Status: Acute Assessment and Plan: Patient developed hospitalization during a this admission. No prior history of atrial fibrillation. Converted swiftly with oral flecainide. Continue maintenance of flecainide 50 mg b.i.d. along with Cardizem for AV dionne rate slowing. Also continue full oral anticoagulation with Xarelto 20 mg daily. Will follow up with outpatient workup including sleep study, Holter monitor and stress testing. Recent echocardiogram was within normal limits. Management of atrial fibrillation was discussed. Continue supportive management for pneumonia with antibiotics. Blood pressure is optimized. Twelve lead EKG needs to be performed. If 12 lead EKGs okay from cardiac perspective can be discharged home when ready from medical perspective. Will sign of the case and follow up as outpatient. Thank you for allowing us to partake in her care Fall Risk Details Current Medications: Current Medications Acetaminophen (Acetaminophen 325 Mg Tablet) 650 mg PO Q6H PRN PRN Reason: Pain, Mild (Pain Scale 1-3) Last Admin: 12/22/20 04:45 Dose: 650 mg Documented by: Atorvastatin Calcium (Atorvastatin Calcium 80 Mg Tablet) 80 mg PO DAILY AMANDA Last Admin: 12/22/20 08:33 Dose: 80 mg Documented by: Clonazepam (Clonazepam 0.5 Mg Tablet) 0.5 mg PO BEDTIME PRN PRN Reason: Anxiety Diltiazem HCl (Diltiazem Hcl Cd 120 Mg Cap.Er.Deg) 120 mg PO DAILY AMANDA; Protocol Last Admin: 12/22/20 08:31 Dose: 120 mg Documented by: Famotidine (Famotidine 20 Mg Tablet) 20 mg PO BEDTIME AMANDA Last Admin: 12/21/20 21:18 Dose: 20 mg Documented by: Flecainide Acetate (Flecainide Acetate 50 Mg Tablet) 50 mg PO BID [facility] Last Admin: 12/22/20 08:30 Dose: 50 mg Documented by: Fluticasone Propionate (Fluticasone Propionate Nasal 16 Gm Combs) 1 spray NOSTRIL-B DAILY [facility] Last Admin: 12/22/20 08:36 Dose: 1 spray Documented by: Guaifenesin (Guaifenesin 100 Mg/5 Ml Liquid) 5 ml PO Q6H PRN PRN Reason: Cough Ceftriaxone Sodium 1 gm/ (Sodium Chloride) 50 mls @ 100 mls/hr IV Q24H [facility] Last Infusion: 12/21/20 15:12 Dose: Infused Documented by: Azithromycin 500 mg/ Sodium (Chloride) 250 mls @ 125 mls/hr IV Q24H [facility] Last Infusion: 12/21/20 17:28 Dose: Infused Documented by: Insulin Human Lispro (Insulin Lispro 100 Unit/Ml 3 Ml Vial) 0 unit SUBCUT QIDACHS [facility]; Protocol Last Admin: 12/22/20 08:29 Dose: 4 unit Documented by: Levalbuterol HCl (Levalbuterol Hcl 1.25 Mg/0.5 Ml Vial.Neb) 1.25 mg INHALE RQ4H WHILE AWAKE [facility] Last Admin: 12/22/20 07:55 Dose: 1.25 mg Documented by: Levalbuterol HCl (Levalbuterol Hcl 1.25 Mg/0.5 Ml Vial.Neb) 1.25 mg INHALE Q2H PRN PRN Reason: wheezing and shortness of dayan Lisinopril (Lisinopril 40 Mg Tablet) 40 mg PO DAILY [facility]; Protocol Last Admin: 12/22/20 08:31 Dose: 40 mg Documented by: Loratadine (Loratadine 10 Mg Tablet) 10 mg PO DAILY PRN PRN Reason: Allergy Symptoms Magnesium Hydroxide (Milk Of Magnesia 30 Ml Oral.Susp) 30 ml PO DAILY PRN PRN Reason: Constipation Melatonin (Melatonin 3 Mg Tablet) 6 mg PO BEDTIME PRN PRN Reason: Insomnia Metformin HCl (Metformin Hcl Er 500 Mg Tab.Er.24h) 1,000 mg PO BID [facility] Last Admin: 12/22/20 08:29 Dose: 1,000 mg Documented by: Methylprednisolone Sodium Succinate (Methylprednisolone Sod Succ 40 Mg/Ml Vial) 40 mg IVPUSH BID [facility] Last Admin: 12/22/20 08:29 Dose: 40 mg Documented by: Mirabegron (Mirabegron 25 Mg Tab.Er.24h) 25 mg PO DAILY [facility] Last Admin: 12/22/20 08:29 Dose: 25 mg Documented by: Ondansetron HCl (Ondansetron Hcl 4 Mg/2 Ml Vial) 4 mg IVPUSH Q8H PRN PRN Reason: Nausea and Vomiting Pharmacy Consult (Consult Rx Perform Med Rec) 1 each MISCELLANE ONCE PRN PRN Reason: Consult order Pioglitazone HCl (Pioglitazone Hcl 15 Mg Tablet) 15 mg PO BID [facility] Last Admin: 12/22/20 08:29 Dose: 15 mg Documented by: Rivaroxaban (Rivaroxaban 20 Mg Tablet) 20 mg PO DAILY [facility] Last Admin: 12/22/20 08:29 Dose: 20 mg Documented by: Sertraline HCl (Sertraline Hcl 100 Mg Tablet) 200 mg PO DAILY [facility] Last Admin: 12/22/20 08:29 Dose: 200 mg Documented by: Sodium Chloride (0.9 % Sodium Chloride Flush 3 Ml Syringe) 3 ml IVFLUSH QSHIFT [facility] Last Admin: 12/22/20 08:32 Dose: 3 ml Documented by: Vitamin D (Cholecalciferol (Vitamin D3) 25 Mcg Tablet) 25 mcg PO DAILY [facility] Last Admin: 12/22/20 08:29 Dose: 25 mcg Documented by: Time Spent With Patient Time: Total time spent is greater than 50% in coordination of care (as documented) at patient's floor/unit and/or counseling patient: Time with patient: 15 - 24 minutes Progress Note: Quality Stroke Does the patient have a stroke diagnosis?: No Procedures Date of Service Date of Service: 12/22/20
[2020-12-22 11:21] LABS: Glucose, Whole Blood 317 mg/dL (60-115)
[2020-12-22] MEDS: cefTRIAXone sodium 1 GM in 0.9 % Sodium Chloride 50 ML IV (14:40)
[2020-12-22] MEDS: Azithromycin 500 MG in 0.9 % Sodium Chloride 250 ML 125 MG IV (14:42)
[2020-12-22 16:23] LABS: Glucose, Whole Blood 280 mg/dL (60-115)
[2020-12-22] MEDS: Famotidine 20 MG TABLET PO (19:58)
[2020-12-22 20:51] LABS: Glucose, Whole Blood 294 mg/dL (60-115)
[2020-12-22] MEDS: Melatonin 3 MG TABLET 6 MG PO (21:07)
[2020-12-23] VITALS: BP 113/56; PULSE 79; RESP 18; TEMP 36.4; O2SAT 96
[2020-12-23 03:53] VITALS: BP 122/60; PULSE 72; RESP 18; TEMP 36.6; O2SAT 97
[2020-12-23 07:23] VITALS: BP 128/62; PULSE 90; RESP 17; TEMP 36.1; O2SAT 93
[2020-12-23 07:58] LABS: Glucose, Whole Blood 256 mg/dL (60-115)
[2020-12-23 08:21] VITALS: BP 128/62; PULSE 90
[2020-12-23] MEDS: lisinopriL 40 MG TABLET PO (08:21)
[2020-12-23] MEDS: Mirabegron 25 MG TAB.ER.24H PO (08:21)
[2020-12-23] MEDS: Rivaroxaban 20 MG TABLET PO (08:21)
[2020-12-23] MEDS: dilTIAZem HCL CD 120 MG CAP.ER.DEG PO (08:21)
[2020-12-23] MEDS: Sertraline HCL 100 MG TABLET 200 MG PO (08:21)
[2020-12-23] MEDS: Insulin Lispro 100 UNIT/ML 3 ML VIAL SUBCUT ×2 (08:21→11:48)
[2020-12-23] MEDS: Cholecalciferol (Vitamin D3) 25 MCG TABLET PO (08:21)
[2020-12-23 08:22] VITALS: BP 128/62; PULSE 90
[2020-12-23] MEDS: Flecainide Acetate 50 MG TABLET PO (08:22)
[2020-12-23] MEDS: Atorvastatin Calcium 80 MG TABLET PO (08:22)
[2020-12-23] MEDS: methylPREDNISolone Sod Succ 40 MG/ML VIAL IVPUSH (08:22)
[2020-12-23] MEDS: 0.9 % Sodium Chloride Flush 3 ML SYRINGE IVFLUSH (08:22)
[2020-12-23] MEDS: metFORMIN HCl ER 500 MG TAB.ER.24H 1000 MG PO (08:22)
[2020-12-23] MEDS: Fluticasone Propionate Nasal 16 GM SPRAY 1 SPRAY NOSTRIL-B (08:23)
[2020-12-23 11:14] VITALS: BP 138/54; PULSE 81; RESP 18; TEMP 36.4; O2SAT 93
[2020-12-23 11:22] LABS: Glucose, Whole Blood 225 mg/dL (60-115)
--- NOTE | 2020-12-23 12:39 | MHC.CM.PN ---
IMM 12/23/20 Female s/p Cardioversion discharge today. [employer] services to resume. Her son is providing transportation home.
--- NOTE | 2020-12-23 15:39 | PM.DS ---
DS: Providers Provider Date of Service: 12/23/20 Date of admission: 12/20/20 14:23 Primary care physician: Thelma De Jesus MD Consults: 12/21/20 00:16 Consult to Cardiology Routine Consulting Provider: Gaudencio Murphy Reason for consultation: new onset afib DS: Diagnosis Discharge Diagnosis (1) Paroxysmal atrial fibrillation: Status: Acute DS: Summary Hospital Course Hospital Course: History of presenting illness Chief Complaint: Shortness of breath and cough 60 year female, active smoker, HTN controlled on meds, non-insulin dpendent diabetes that is controlled, HLD treated with statin, asthm that is usually well controlled here with shortness of breath, productive cough for 4 days now and associated with fever, headache and bodye ache not improving with conservative management at home. She is vaccinated for covid since June and is presently covid negative. Work up has revealed RLL pneumonia and is being admitted for asthma exacerbation. sepsis and pneumonia. Hospital course ?? ? 60 year female with diabetes, HTN, HLD, asthm presented with sob, cough and found to have sepsis due to pneumonia and acute exacrerbation of asthma patient treated with IV steroids , updraft treatment, cough medication, IV ceftriaxone and azithromycin patient responded well to above treatment currently oxygenating well on room air, is in no respiratory distress oxygenation is stable therefore will be discharged home to finish a total 5 day course of antibiotics, she has been given 3 more days of by mouth prednisone and has been strongly recommend to abstain from smoking. Blood cultures x2 positive for coagulase-negative Staph likely contamination , patient has no IV lines or indwelling catheters. During course of hospitalization patient developed new onset atrial fibrillation with rapid ventricular rate, treated with IV Cardizem drip, subsequently converted to sinus rhythm, patient seen by Cardiology and has been started on flecainide and Cardizem and due to elevated chads 2 vascular score of 3 she has been placed on Xarelto In regard to chronic medical issues, including diabetes, hypertension and hyperlipidemia she has been continued on home medications, Norvasc has been discontinued since patient started on Cardizem Time Spent with Patient Time attestation: Total time spent providing and/or coordinating discharge services: Discharge coordination time: Greater than 30 minutes Quality: Stroke Does the patient have a stroke diagnosis?: No Physical Exam Vital Signs: Vital Signs: Last Vital Signs Temp 97.5 F 12/23/20 11:14 Pulse 81 12/23/20 11:14 Resp 18 12/23/20 11:14 BP 138/54 L 12/23/20 11:14 Pulse Ox 93 12/23/20 11:14 Body Mass Index 30.1 General no acute distress. Neck supple no JVD. CVS regular rate rhythm, Respiratory lungs clear to auscultation, no respiratory distress, no wheeze, no rhonchi. Gastrointestinal abdomen soft, nontender, bowel sounds audible, no guarding , no rigidity. Extremities no edema. Neuro nonfocal Skin no rash DS: Data Data Completed and Pending Labs on day of discharge: Laboratory Results - last 24 hr 12/22/20 12/22/20 12/23/20 15:31 19:47 07:25 POC Glucose 280 H 294 H 256 H 12/23/20 11:14 POC Glucose 225 H Discharge Plan Discharge Patient Disposition: Home, Self-Care Discharge Diagnosis: Sepsis due to pneumonia Asthma exacerbation New onset atrial fibrillation with rapid response Tobacco dependence Referrals: Thelma De Jesus MD [Primary Care Provider] - 1 Week Discharge Medications: New prednisone 20 mg Tablet 20 mg PO DAILY Qty: 3 RF: 0 Xarelto 20 mg Tablet 20 mg PO DAILY Qty: 30 RF: 0 flecainide 50 mg Tablet 50 mg PO BID Qty: 60 RF: 0 diltiazem HCl [Cardizem CD] 120 mg Capsule,Extended Release 24hr 120 mg PO DAILY Qty: 30 RF: 0 azithromycin 250 mg tablet 250 mg PO DAILY Qty: 2 RF: 0 cefuroxime axetil 500 mg Tablet 500 mg PO Q12H Qty: 4 RF: 0 Continued mirabegron 25 mg tablet extended release 24 hr 25 mg PO DAILY 90 Days Qty: 90 RF: 2 cholecalciferol (vitamin D3) 25 mcg (1,000 unit) capsule 25 mcg PO DAILY Qty: 90 RF: 1 metformin 500 mg tablet extended release 24 hr 1,000 mg PO BID Qty: 360 RF: 0 pioglitazone 15 mg tablet 15 mg PO BID RF: 0 clonazepam 0.5 mg tablet 1 tab PO BEDTIME PRN (Reason: Anxiety) RF: 0 fluticasone propionate 50 mcg/actuation spray,suspension 1 spray intranasal DAILY RF: 0 lisinopril 30 mg tablet 40 mg PO DAILY RF: 0 famotidine 20 mg tablet 20 mg PO BEDTIME RF: 0 loratadine 10 mg tablet 10 mg PO DAILY PRN (Reason: Allergy Symptoms) RF: 0 sertraline 100 mg tablet 200 mg PO DAILY RF: 0 albuterol sulfate 2.5 mg /3 mL (0.083 %) solution for nebulization 2.5 mg inhalation Q4-6H PRN (Reason: Wheezing) RF: 0 rosuvastatin 40 mg tablet 40 mg PO DAILY 30 Days Qty: 30 RF: 5 Discontinued amlodipine 5 mg tablet 5 mg PO BID RF: 0 Discharge Orders: Discharge Order (Routine); Ordered 12/23/20 Ordered By: Akanksha Zamora Diet: diabetic diet and low fat, low cholesterol Activity on Discharge: As tolerated Stand Alone Forms: Patient Portal Discharge page Care Plan Goals: Take both antibiotics and prednisone, use albuterol inhaler 4 times a day is scheduled for next 3 days and then use as needed, resume all new medications for atrial fibrillation, return to check with chest pain shortness of breath lightheadedness or dizziness. Health Concerns: Continue all home medications as before Plan of Treatment: Outpatient follow-up with primary care physician and Cardiology in 1-2 weeks Assessment: As above Discharge Date/Time: 12/23/20 15:10
== END 2020-12-23 15:10 | disposition home or self-care (01) | DRG 871 ==
LOC: HO.ED 10:24 → HO.EDOVER 14:47 → HO.IMC 19:19
PROVIDERS: Admitting Provider Internal Medicine; Emergency Provider Emergency Medicine Emergency Medical Services; PCP General Practice; Visit Provider Hospitalist
DX: A41.9 Sepsis, unspecified organism (principal); J18.9 Pneumonia, unspecified organism; J45.901 Unspecified asthma with (acute) exacerbation; E11.65 Type 2 diabetes mellitus with hyperglycemia; E78.5 Hyperlipidemia, unspecified; I48.0 Paroxysmal atrial fibrillation; K21.00 Gastro-esophageal reflux disease with esophagitis, without bleeding; F17.210 Nicotine dependence, cigarettes, uncomplicated; Z71.6 Tobacco abuse counseling; Z20.822 Contact with and (suspected) exposure to COVID-19; Z88.6 Allergy status to analgesic agent; Z79.01 Long term (current) use of anticoagulants; Z79.51 Long term (current) use of inhaled steroids; Z79.52 Long term (current) use of systemic steroids; Z79.84 Long term (current) use of oral hypoglycemic drugs; Z79.899 Other long term (current) drug therapy
CPT/HCPCS: 0241U; 36415; 71045; 80048; 81001; 82947; 83605; 83735; 83880; 84484; 85025; 85027; 85652; 87040; 87077; 87186; 87205; 93005; 94640; 94644; 99285; J0456; J0696; J1200; J2765; J2920; J2930

== ENCOUNTER 2020-12-28 09:02 | Emergency (ER) | payer OTHER, SELFPAY ==
--- NOTE | ~2020-12-28 | CT_ITS ---
EXAMINATION: CT CHEST WITHOUT CONTRAST CLINICAL INFORMATION: Weakness and cough. Recent pneumonia. COMPARISON: Previous chest x-ray 12/20/[address] November 2020 TECHNIQUE: Multidetector volumetric CT imaging of the chest was done. Axial MIP volume rendering provided. Sagittal and coronal reformatted images were obtained. This CT examination was performed using dose optimization techniques as appropriate, variously including the following: *Automated exposure control *Adjustment of mA and/or kV according to patient size (this includes techniques or standardized protocols for targeted exams where dose is matched to indication/reason for exam; i.e. extremities or head) *Use of iterative reconstruction technique DLP: 275 mGy-cm FINDINGS: STAFF PHYSICAL THERAPY ASSISTANT: LUNGS: There is evidence of mild paraseptal emphysema. There is a 2 mm left upper lobe nodule axial image 52 series 4 that is stable. There is a 1 cm cyst in the right upper lobe axial image 94 series 4 that is stable.. There is a 4 mm peripheral or subpleural posterior segment right upper lobe nodule adjacent to the major fissure axial image 98 series 4 that is stable. There is bilateral lower lobe atelectasis or small infiltrates, right greater than left. There is scattered bronchial wall thickening and bronchial soft tissue opacification seen in the left lower lobe. There is a 7 mm cyst in the right lower lobe axial image 219 series 4 that is stable. MEDIASTINUM: There are small mediastinal lymph nodes. No enlarged lymph nodes are seen. The heart does not appear enlarged. There is mild coronary artery calcification. The thoracic aorta is normal in caliber. PLEURA: There may be a trace left pleural effusion. There is no right pleural effusion. AXILLA: No lymphadenopathy. UPPER ABDOMEN: The gallbladder is been removed. There is diverticulosis of the colon. OSSEOUS STRUCTURES: There are degenerative changes of the spine. CT/CT chest wo con IMPRESSION: Bilateral lower lobe atelectasis or small infiltrates, right greater than left. New bronchial wall thickening and bronchial soft tissue opacity in the left lower lobe. Stable small pulmonary nodules. Mild paraseptal emphysema. Mild coronary artery calcification.
--- NOTE | 2020-12-28 09:15 | ED.SOB ---
HPI - SOB/Dyspnea General Chief Complaint: Upper Respiratory Symptoms Stated Complaint: SOB Time Seen by Provider: 12/28/20 09:15 Source: patient, family and old records reviewed Mode of arrival: ambulatory Limitations: no limitations History of Present Illness MD elicited complaint: shortness of breath, cough and asthma attack Pertinent past history: asthma and pneumonia Onset (ago): day(s) (12) Context: recent illness Timing: constant and progressively worsening Severity: moderate Exacerbating factors: exertion, recent new medication, coughing and other (dizziness) Relieving factors: rest Known history of: asthma and other (recent dx of pneumonia 12/20 and 12/23 - started on ceftin/azithromycin also new onset afib - dilt/flecainide and xarelto - compliant with all medications) Associated symptoms: other (dizziness, weakness, nausea, vomiting, cough, dyspnea) Treatment prior to arrival: other (finished antibiotics yesterday) Related Data Home Medications Medication Instructions Recorded Confirmed loratadine 10 mg tablet 10 mg PO DAILY PRN 02/26/20 12/28/20 sertraline 100 mg tablet 200 mg PO DAILY 02/26/20 12/28/20 famotidine 20 mg tablet 20 mg PO BEDTIME PRN 09/24/20 12/28/20 pioglitazone 15 mg tablet 15 mg PO BID 11/02/20 12/28/20 fluticasone propionate 50 1 spray INTRANASAL DAILY 12/20/20 12/28/20 mcg/actuation nasal spray,suspension albuterol sulfate 90 mcg/actuation 2 puff PO Q4-6H PRN 12/28/20 12/28/20 aerosol inhaler (Ventolin HFA) lisinopril 40 mg tablet 1 tab PO DAILY 12/28/20 12/28/20 melatonin 1 mg tablet 1 tab PO BEDTIME PRN 12/28/20 12/28/20 Previous Rx's Medication Instructions Recorded rosuvastatin 40 mg tablet 40 mg PO DAILY 30 Days #30 tab 02/26/20 mirabegron 25 mg tablet,extended 25 mg PO DAILY 90 Days #90 tab 07/03/20 release 24 hr cholecalciferol (vitamin D3) 25 25 mcg PO DAILY #90 cap 08/24/20 mcg (1,000 unit) capsule diltiazem HCl 120 mg 120 mg PO DAILY #30 cap 12/23/20 capsule,extended release 24 hr (Cardizem CD) flecainide 50 mg tablet 50 mg PO BID #60 tab 12/23/20 metformin 500 mg tablet,extended 1,000 mg PO BID #360 tab 12/23/20 release 24 hr rivaroxaban 20 mg tablet (Xarelto) 20 mg PO DAILY #30 tab 12/23/20 doxycycline hyclate 100 mg capsule 100 mg PO BID 7 Days #14 cap 12/28/20 ondansetron 4 mg disintegrating 4 mg PO Q8H PRN #20 tab 12/28/20 tablet Allergies Allergy/AdvReac Type Severity Reaction Status Date / Time ibuprofen [IBUPROFEN] Allergy Severe SICK TO Verified 09/24/20 15:50 MY STOMACH ciprofloxacin [From CIPRO] Allergy Intermediate SICK Verified 09/24/20 15:50 levofloxacin [From LEVAQUIN] Allergy Intermediate SICK , Verified 11/02/20 11:26 nausea, dizziness x days flu vaccine Allergy Intermediate Swelling Uncoded 04/10/20 21:07 Review of Systems Review of Systems: Constitutional : No Fever, pos Chills, pos fatigue, pos malaise ENT/Mouth : No sore throat, No Rhinorrhea, No Swallowing Difficulty Eyes: No Eye Pain, No Swelling, No Redness Cardiovascular : No Chest Pain, positive SOB, No Orthopnea, positive Edema Respiratory : pos Cough, No Sputum, No Wheezing, positive dyspnea Gastrointestinal : pos Nausea, No Vomiting, No Diarrhea, No abdominal Pain, No Hematochezia, No Melena Genitourinary : No Dysuria, No Urinary Frequency, No Hematuria Musculoskeletal : No joint pain, No Myalgias Skin : No Skin Lesions, No rash Neuro : pos Weakness, No Numbness, pos Dizziness, No Headache Psych : No Anxiety/Panic, No Depression Heme/Lymph: No Bruising, No Lymphadenopathy Endocrine : No Polyuria, No Polydipsia All other systems reviewed and are negative [facility] Past Medical History Attestation statement: The following information was validated with the patient. Medical History Bronchitis Diabetes Diabetic 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 Dyslipidemia GERD (gastroesophageal reflux disease) Hypertension Obesity (BMI 30-39.9) Osteopenia Paroxysmal atrial fibrillation Vitamin D deficiency Surgical History History of esophagogastroduodenoscopy (EGD) Hx of colonoscopy Hx of foot surgery Family History Family History Father Heart failure Diabetes mellitus Mother Cholangiocarcinoma Diabetes mellitus Family history of hypertension Brother Lung cancer Family/Other Breast cancer Social History Social History Household Members: Children Housing: Apartment Do you presently have visiting nurse or other home services: Yes Alcohol intake: current Alcohol intake frequency: holidays/special occasions only Alcohol type: beer Patient Tobacco Use Status: Current everyday Tobacco user Cigarettes Per Day: 12 Advance Directives: Yes Advance Directives Information Provided: Yes Advance Directives on File: No Advance Directives Date on File: 12/19/20 Patient : No service: No Current occupational status: unemployed Physical Exam Vital Signs: Vital Signs: Last Vital Signs Temp 98.5 F 12/28/20 09:24 Pulse 67 12/28/20 12:00 Resp 18 12/28/20 12:00 BP 119/51 L 12/28/20 12:00 Pulse Ox 98 12/28/20 12:00 Body Mass Index 29.0 Appearance: Alert. Oriented X3. No acute distress. Eyes: Pupils equal, round and reactive to light. ENT: Pharynx normal. Neck: Normal inspection. Neck supple. CVS: Normal heart rate and rhythm. Pulses normal. in NSR Respiratory: No respiratory distress. Breath sounds anterior rhonchi noted Abdomen: Soft and non-tender. Skin: Skin warm and dry. Normal skin color. Normal skin turgor. Extremities: No lower extremity edema. No calf ttp Neuro: Oriented X 3. No motor deficit. No sensory deficit. Course Course Course Narrative: negative for COVID and resp panel negative negative workup, eating lunch here, CT scan ?atelectasis vs infiltrate, no hypoxia, dizziness resolved, wants to go home - will start on doxy and DC home MDM - SOB/Dyspnea MDM Narrative Medical decision making narrative: 60 yo female with DM, GERD, asthma recent admit 12/20 - 12/23 for pneumonia/afib started on dilt flecainide xarelto - completed ceftin and azithromycin she overall noted she still feels sick including cough, weakness, dizziness, body aches - she is s/p her vaccines back in June I believe at this time fluids, CT scan for worsening pneumonia, neb treatment, viral pathogen panel - dispo per results and findings. Lab Data Result diagrams: 12/28/20 10:20 12/28/20 10:20 Labs: Lab Results 12/28/20 12/28/20 12/28/20 Range/Units 10:20 10:20 10:20 WBC 10.7 (4.8-10.8) X10*3/uL RBC 4.28 (4.20-5.50) X10*6/uL Hgb 14.0 (12.0-16.0) g/dl Hct 41.3 (37-47) % MCV 96.5 (80-98) fL MCH 32.7 (27.0-33.0) pg MCHC 33.9 (31.0-35.0) g/dl RDW 12.7 (11.0-16.0) % Plt Count 255 D (160-400) X10*3/uL MPV 9.2 L (9.4-12.3) fL Immature Gran % (Auto) 2.0 H (0.0-0.4) % Neut % (Auto) 67.5 (45-73) % Lymph % (Auto) 21.1 (20-40) % [place] % (Auto) 8.1 (2-11) % Eos % (Auto) 1.2 (0-4) % Baso % (Auto) 0.1 (0-2) % Lymph # (Auto) 2.3 (1.2-4.9) X10*3/uL [place] # (Auto) 0.9 (0.1-1.2) X10*3/uL Eos # (Auto) 0.1 (0.0-0.4) X10*3/uL Baso # (Auto) 0.0 (0.0-0.2) X10*3/uL Abs Immat Gran (auto) 0.21 H (0.00-0.03) X10*3/uL Absolute Neuts (auto) 7.2 (2.0-8.3) X10*3/uL Absolute Nucleated RBC 0.000 (0.0-0.012) X10*3/uL Nucleated RBC % (auto) 0.0 (0.0-0.2) /100WBC Sodium 139 (135-145) mmol/L Potassium 3.8 (3.3-5.1) mmol/L Chloride 105 (96-108) mmol/L Carbon Dioxide 27 (22-29) mmol/L Anion Gap 11 L (12-20) BUN 20 H (9-16) mg/dL Creatinine 0.87 (0.5-1.4) mg/dL Estim Creat Clear Calc 64.8 Estimated GFR > 60 Random Glucose 158 H (60-115) mg/dL Lactic Acid 0.7 (0.5-2.0) mmol/L Calcium 8.9 (8.4-10.2) mg/dL Magnesium 1.6 (1.6-2.6) mg/dL Total Bilirubin 0.6 (0.0-1.0) mg/dL Direct Bilirubin 0.2 (0.0-0.5) mg/dL AST 39 H D (5-31) U/L ALT 68 H (0-31) U/L Alkaline Phosphatase 106 D (39-117) U/L Troponin I High Sens (<3.5-17.0) ng/L B-Natriuretic Peptide (<100) pg/mL Total Protein 6.3 L (6.5-8.0) g/dL Albumin 3.2 L D (3.5-5.0) g/dL Lipase 63 (8-78) U/L Urine Color Urine Appearance Urine pH (5.0-8.0) Ur Specific [place] (1.005-1.025) Urine Protein (NEG-TRACE) MG/DL Urine Glucose (UA) (NEG) MG/DL Urine Ketones (NEG) MG/DL Urine Blood (NEG) Urine Nitrite (NEG) Ur Leukocyte Esterase (NEG) Urine RBC (0) /HPF Urine WBC (0-4) /HPF Ur Squamous Epith Cells /LPF Urine Bacteria /LPF Respiratory Panel [place] Adenovirus (Rapid PCR) (Not Detect.) B.pert (TEM-PCR) (Not Detect.) B.parapertussis DNA PCR (Not Detect.) C. pneumoniae DNA (PCR) (Not Detect.) Coronavirus OC43 (PCR) (Not Detect.) Coronavirus HKU1 (PCR) (Not Detect.) Coronavirus 229E (PCR) (Not Detect.) Coronavirus NL63 (PCR) (Not Detect.) Human Metapneumovir PCR (Not Detect.) Influenza A (RT-PCR) (Not Detect.) Influenza B (RT-PCR) (Not Detect.) M. pneumoniae (PCR) (Not Detect.) Parainfluenza 1 (PCR) (Not Detect.) Parainfluenza 2 (PCR) (Not Detect.) Parainfluenza 3 (PCR) (Not Detect.) Parainfluenza 4 (PCR) (Not Detect.) RSV (PCR) (Not Detect.) Entero/Rhino (PCR) (Not Detect.) SARS-CoV-2 RNA (RT-PCR) (Not Detect.) 12/28/20 12/28/20 12/28/20 Range/Units 10:20 10:21 10:21 WBC (4.8-10.8) X10*3/uL RBC (4.20-5.50) X10*6/uL Hgb (12.0-16.0) g/dl Hct (37-47) % MCV (80-98) fL MCH (27.0-33.0) pg MCHC (31.0-35.0) g/dl RDW (11.0-16.0) % Plt Count (160-400) X10*3/uL MPV (9.4-12.3) fL Immature Gran % (Auto) (0.0-0.4) % Neut % (Auto) (45-73) % Lymph % (Auto) (20-40) % [place] % (Auto) (2-11) % Eos % (Auto) (0-4) % Baso % (Auto) (0-2) % Lymph # (Auto) (1.2-4.9) X10*3/uL [place] # (Auto) (0.1-1.2) X10*3/uL Eos # (Auto) (0.0-0.4) X10*3/uL Baso # (Auto) (0.0-0.2) X10*3/uL Abs Immat Gran (auto) (0.00-0.03) X10*3/uL Absolute Neuts (auto) (2.0-8.3) X10*3/uL Absolute Nucleated RBC (0.0-0.012) X10*3/uL Nucleated RBC % (auto) (0.0-0.2) /100WBC Sodium (135-145) mmol/L Potassium (3.3-5.1) mmol/L Chloride (96-108) mmol/L Carbon Dioxide (22-29) mmol/L Anion Gap (12-20) BUN (9-16) mg/dL Creatinine (0.5-1.4) mg/dL Estim Creat Clear Calc Estimated GFR Random Glucose (60-115) mg/dL Lactic Acid (0.5-2.0) mmol/L Calcium (8.4-10.2) mg/dL Magnesium (1.6-2.6) mg/dL Total Bilirubin (0.0-1.0) mg/dL Direct Bilirubin (0.0-0.5) mg/dL AST (5-31) U/L ALT (0-31) U/L Alkaline Phosphatase (39-117) U/L Troponin I High Sens < 3.5 (<3.5-17.0) ng/L B-Natriuretic Peptide 38 (<100) pg/mL Total Protein (6.5-8.0) g/dL Albumin (3.5-5.0) g/dL Lipase (8-78) U/L Urine Color YELLOW Urine Appearance HAZY Urine pH 6.0 (5.0-8.0) Ur Specific [place] 1.025 (1.005-1.025) Urine Protein 2+ H (NEG-TRACE) MG/DL Urine Glucose (UA) NEG (NEG) MG/DL Urine Ketones NEG (NEG) MG/DL Urine Blood TRACE (NEG) Urine Nitrite NEG (NEG) Ur Leukocyte Esterase TRACE H (NEG) Urine RBC 1-4 (0) /HPF Urine WBC 5-9 H (0-4) /HPF Ur Squamous Epith Cells 1+ /LPF Urine Bacteria 1+ /LPF Respiratory Panel [place] See Note Adenovirus (Rapid PCR) Not Detected (Not Detect.) B.pert (TEM-PCR) Not Detected (Not Detect.) B.parapertussis DNA PCR Not Detected (Not Detect.) C. pneumoniae DNA (PCR) Not Detected (Not Detect.) Coronavirus OC43 (PCR) Not Detected (Not Detect.) Coronavirus HKU1 (PCR) Not Detected (Not Detect.) Coronavirus 229E (PCR) Not Detected (Not Detect.) Coronavirus NL63 (PCR) Not Detected (Not Detect.) Human Metapneumovir PCR Not Detected (Not Detect.) Influenza A (RT-PCR) Not Detected (Not Detect.) Influenza B (RT-PCR) Not Detected (Not Detect.) M. pneumoniae (PCR) Not Detected (Not Detect.) Parainfluenza 1 (PCR) Not Detected (Not Detect.) Parainfluenza 2 (PCR) Not Detected (Not Detect.) Parainfluenza 3 (PCR) Not Detected (Not Detect.) Parainfluenza 4 (PCR) Not Detected (Not Detect.) RSV (PCR) Not Detected (Not Detect.) Entero/Rhino (PCR) Not Detected (Not Detect.) SARS-CoV-2 RNA (RT-PCR) Not Detected (Not Detect.) ECG Data Attestation: I personally reviewed and interpreted this ECG as follows: ECG interpretation date: 12/28/20 ECG interpretation time: 09:39 Interpretation: Rate: 64 Rhythm: NSR Joseph: normal Normal P waves. Normal DAVID. Normal QRS complex. ST T wave : normal no LYNNE qTC: normal prior studies: no acute ischemia The study has been interpreted contemporaneously by me. . Discharge Plan Discharge Clinical Impression: Dizziness, Weakness Pneumonia Qualifiers: Pneumonia type: due to unspecified organism Laterality: bilateral Lung location: lower lobe of lung Qualified Code(s): J18.9 - Pneumonia, unspecified organism Patient Disposition: Home, Self-Care Instructions: Lightheadedness (ED), Dizziness (ED), Pneumonia (ED) Additional Instructions: return to ED for any worsening symptoms or concerns Prescriptions: New doxycycline hyclate 100 mg capsule 100 mg PO BID 7 Days Qty: 14 RF: 0 ondansetron 4 mg tablet,disintegrating 4 mg PO Q8H PRN (Reason: nausea and vomiting) Qty: 20 RF: 0 No Action mirabegron 25 mg tablet extended release 24 hr 25 mg PO DAILY 90 Days Qty: 90 RF: 2 cholecalciferol (vitamin D3) 25 mcg (1,000 unit) capsule 25 mcg PO DAILY Qty: 90 RF: 1 metformin 500 mg tablet extended release 24 hr 1,000 mg PO BID Qty: 360 RF: 0 pioglitazone 15 mg tablet 15 mg PO BID RF: 0 fluticasone propionate 50 mcg/actuation spray,suspension 1 spray intranasal DAILY RF: 0 Xarelto 20 mg Tablet 20 mg PO DAILY Qty: 30 RF: 0 flecainide 50 mg Tablet 50 mg PO BID Qty: 60 RF: 0 diltiazem HCl [Cardizem CD] 120 mg Capsule,Extended Release 24hr 120 mg PO DAILY Qty: 30 RF: 0 albuterol sulfate [Ventolin HFA] 90 mcg/actuation HFA aerosol inhaler 2 puff PO Q4-6H PRN (Reason: Shortness Of Breath) RF: 0 melatonin 1 mg tablet 1 tab PO BEDTIME PRN (Reason: pain) RF: 0 lisinopril 40 mg tablet 1 tab PO DAILY RF: 0 famotidine 20 mg tablet 20 mg PO BEDTIME PRN (Reason: Gastric Reflux) RF: 0 loratadine 10 mg tablet 10 mg PO DAILY PRN (Reason: Allergy Symptoms) RF: 0 sertraline 100 mg tablet 200 mg PO DAILY RF: 0 rosuvastatin 40 mg tablet 40 mg PO DAILY 30 Days Qty: 30 RF: 5 Referrals: Thelma De Jesus MD [Primary Care Provider] - 2 days Print Language: Portuguese
[2020-12-28 09:24] VITALS: BP 107/92; PULSE 65; RESP 18; TEMP 36.9; O2SAT 94; BMI 29.0
--- NOTE | 2020-12-28 09:26 | ECG_ITS ---
Test Reason : SOB Blood Pressure : / mmHG Vent. Rate : 064 BPM Atrial Rate : 064 BPM P-R Int : 170 ms QRS Dur : 080 ms QT Int : 394 ms P-R-T Axes : 052 016 047 degrees QTc Int : 406 ms Normal sinus rhythm Nonspecific ST abnormality Abnormal ECG When compared with ECG of 22-DEC-2020 10:44, No significant change was found Referred By: Antonia Meyer Electronically Signed By:PHIL SANTIZO
[2020-12-28] MEDS: 0.9 % Sodium Chloride 1,000 ML 999 ML IVCONT (10:00)
[2020-12-28 10:31] LABS: MANUAL DIFF FLAG NO
[2020-12-28 10:32] LABS: Basophils Percent Auto 0.1 % (0-2); Eosinophils Absolute Auto 0.1 X10*3/uL (0.0-0.4); Eosinophils Percent Auto 1.2 % (0-4); Hematocrit 41.3 % (37-47); Imm Gran Abs Auto 0.21 X10*3/uL (0.00-0.03); Lymphocytes Absolute Auto 2.3 X10*3/uL (1.2-4.9); Lymphocytes Percent Auto 21.1 % (20-40); Mean Corpuscular HGB Conc 33.9 g/dl (31.0-35.0); Mean Corpuscular Hemoglobin 32.7 pg (27.0-33.0); Mean Corpuscular Volume 96.5 fL (80-98); Mean Platelet Volume 9.2 fL (9.4-12.3); Monocytes Absolute Auto 0.9 X10*3/uL (0.1-1.2); Monocytes Percent Auto 8.1 % (2-11); Neutrophils Absolute Auto 7.2 X10*3/uL (2.0-8.3); Neutrophils Percent Auto 67.5 % (45-73); Platelet Count 255 X10*3/uL (160-400); Red Blood Count 4.28 X10*6/uL (4.20-5.50); Red Cell Distribution Width 12.7 % (11.0-16.0); White Blood Count 10.7 X10*3/uL (4.8-10.8)
[2020-12-28 10:33] LABS: Appearance Urine HAZY; Color Urine YELLOW; Glucose Urine UA NEG (NEG); Leukocyte Esterase Urine TRACE (NEG); Nitrite Urine NEG (NEG); Specific Gravity - Urine 1.025 (1.005-1.025); UACC Culture Trigger YES; Urine Blood TRACE (NEG); Urine Ketones NEG (NEG); Urine Protein 2+ MG/DL (NEG-TRACE)
[2020-12-28] MEDS: Albuterol Sulfate (0.083%) 2.5 MG/3 ML VIAL.NEB INHALE (10:37)
[2020-12-28 10:39] VITALS: PULSE 62; O2SAT 96
[2020-12-28] MEDS: ondansetron HCL 4 MG/2 ML VIAL IVPUSH (10:44)
[2020-12-28 10:47] LABS: Adenovirus PCR Not Detected (Not Detect.); Bordetella parapertussis PCR Not Detected (Not Detect.); Bordetella pertussis PCR Not Detected (Not Detect.); Chlamydia pneumoniae PCR Not Detected (Not Detect.); Coronavirus 229E PCR Not Detected (Not Detect.); Coronavirus HKU1 PCR Not Detected (Not Detect.); Coronavirus NL63 PCR Not Detected (Not Detect.); Coronavirus OC43 PCR Not Detected (Not Detect.); Human metapneumovirus PCR Not Detected (Not Detect.); Influenza A PCR Not Detected (Not Detect.); Influenza B PCR Not Detected (Not Detect.); Mycoplasma pneumoniae PCR Not Detected (Not Detect.); Parainfluenza 1 PCR Not Detected (Not Detect.); Parainfluenza 2 PCR Not Detected (Not Detect.); Parainfluenza 3 PCR Not Detected (Not Detect.); Parainfluenza 4 PCR Not Detected (Not Detect.); RSV PCR Not Detected (Not Detect.); Rhino/Enterovirus PCR Not Detected (Not Detect.); SARS-CoV-2 PCR Not Detected (Not Detect.)
[2020-12-28 10:50] LABS: Lactic Acid 0.7 mmol/L (0.5-2.0)
[2020-12-28 10:54] LABS: Alanine Aminotransferase 68 U/L (0-31); Albumin Level 3.2 g/dL (3.5-5.0); Alkaline Phosphatase 106 U/L (39-117); Anion Gap 11 (12-20); Aspartate Amino Transferase 39 U/L (5-31); Bilirubin Direct 0.2 mg/dL (0.0-0.5); Bilirubin Total 0.6 mg/dL (0.0-1.0); Blood Urea Nitrogen 20 mg/dL (9-16); Calcium 8.9 mg/dL (8.4-10.2); Carbon Dioxide 27 mmol/L (22-29); Chloride 105 mmol/L (96-108); Creatinine Clr Calc Pharmacy 64.8; Estimated Glomerular Filt Rate > 60; Glucose Random 158 mg/dL (60-115); Lipase 63 U/L (8-78); Magnesium 1.6 mg/dL (1.6-2.6); Potassium 3.8 mmol/L (3.3-5.1); Sodium 139 mmol/L (135-145); Total Protein 6.3 g/dL (6.5-8.0)
[2020-12-28 10:57] LABS: Bacteria Urine 1+ /LPF; Squamous Epithelial Cell Urine 1+ /LPF
[2020-12-28 10:58] LABS: B Type Natriuretic Peptide 38 pg/mL (<100); Troponin-I High Sensitivity < 3.5 ng/L (<3.5-17.0)
[2020-12-28] MEDS: Piperacillin Sodium/Tazobactam 4.5 GM in 0.9 % Sodium Chloride 100 ML IV (11:38)
[2020-12-28 12:00] VITALS: BP 119/51; PULSE 67; RESP 18; O2SAT 98
== END 2020-12-28 13:52 | disposition home or self-care (01) ==
PROVIDERS: Emergency Provider Emergency Medicine; PCP General Practice
DX: J18.9 Pneumonia, unspecified organism (principal); R06.02 Shortness of breath; R42 Dizziness and giddiness; F17.210 Nicotine dependence, cigarettes, uncomplicated; Z20.822 Contact with and (suspected) exposure to COVID-19; Z79.899 Other long term (current) drug therapy; Z71.6 Tobacco abuse counseling
CPT/HCPCS: 36415; 71250; 80048; 80076; 81001; 83605; 83690; 83735; 83880; 84484; 85025; 87040; 87086; 87633; 93005; 96361; 96365; 96375; 99284; J2405; J2543; Q3014

== ENCOUNTER 2021-01-01 11:33 | Emergency (ER) | payer OTHER, SELFPAY ==
--- NOTE | ~2021-01-01 | CT_ITS ---
EXAMINATION: CT ANGIOGRAM OF THE CHEST WITH AND WITHOUT CONTRAST (CT PULMONARY ANGIOGRAM FOR PE) CLINICAL INFORMATION: Reason for Exam dyspnea, weakness, dizziness r/o PE COMPARISON: None TECHNIQUE: Prior to contrast administration, noncontrast localization images were obtained. Subsequently, multidetector volumetric imaging was performed from the thoracic inlet to below the diaphragms following the administration of 80 mL Omnipaque 350 intravenous contrast. No contrast reaction reported Sagittal, coronal, and MIP oblique sagittal reformatted images were obtained on the CT workstation, uploaded to PACS, and reviewed. This CT examination was performed using dose optimization techniques as appropriate, variously including the following: *Automated exposure control *Adjustment of mA and/or kV according to patient size (this includes techniques or standardized protocols for targeted exams where dose is matched to indication/reason for exam; i.e. extremities or head) *Use of iterative reconstruction technique Total exam dose-length product 297 mGy-cm FINDINGS: QUALITY OF STUDY/CONTRAST BOLUS: Satisfactory. PULMONARY ARTERIES: No central or segmental pulmonary emboli. THORACIC AORTA: The LUNG: The lungs are well-expanded and clear of acute process. There 6 mm cyst right upper lobe axial image 18/5. Minimal dependent atelectasis seen in both lower lung bases. No acute consolidation or pulmonary nodule seen. PLEURA: No pleural effusion or pneumothorax. MEDIASTINUM: The thyroid lobes are symmetrical. The central trachea and the bronchi are widely patent. Heart size and the great vessels are normal caliber. There is good opacification of pulmonary artery and its branches without any filling defect. The thoracic aorta is of normal caliber without aneurysm or dissection. No pericardial effusion seen. No evidence of septal bowing or right heart strain. CHEST WALL/AXILLA: No axillary or internal mammary lymphadenopathy. OSSEOUS STRUCTURES: No acute or suspicious osseous abnormality. UPPER ABDOMEN: Visualized liver, spleen, pancreas appears unremarkable. The gallbladder has been surgically removed. No reflux of contrast into the hepatic veins to suggest elevated right heart pressures. CT/CT angio chest PE protocol IMPRESSION: No evidence of PE No evidence of aortic dissection or aneurysm. Minimal bilateral lower lobe attending atelectasis. Small pulmonary cyst right upper lobe. VTE: negative
[2021-01-01 11:47] VITALS: BP 151/60; PULSE 62; RESP 18; TEMP 35.9; O2SAT 96; BMI 30.1
--- NOTE | 2021-01-01 12:09 | ECG_ITS ---
Test Reason : ARRYTHMIA Blood Pressure : / mmHG Vent. Rate : 054 BPM Atrial Rate : 054 BPM P-R Int : 178 ms QRS Dur : 078 ms QT Int : 392 ms P-R-T Axes : 023 015 038 degrees QTc Int : 371 ms Sinus bradycardia Nonspecific ST abnormality Abnormal ECG When compared with ECG of 28-DEC-2020 09:34, No significant change was found Referred By: Antonia Meyer Electronically Signed By:PHIL SANTIZO
--- NOTE | 2021-01-01 12:11 | ED_ITS ---
HPI - Weakness General Chief complaint: Arrhythmia/Palpitations Stated complaint: weak, dizziness Time Seen by Provider: 01/01/21 12:00 Source: patient Mode of arrival: ambulatory Limitations: no limitations History of Present Illness HPI Narrative: recent pneumonia - during admission had normal ECHO found to be in afib - was started on fleicanide, xarelto, diltiazem - she is not compliant with xarelto, was Rx doxy on 12/28 following possible pneumonia on chest CT states she is too weak with n/v and felt short of breath. At this time her PCP sent her over and states that the patient was hypoxic into 80s on arrival here she is in the 90s. MD Complaint: generalized weakness (feels weak, dizzy, short of breath, seen on 12/28 couldn't tolerate the doxycycline) Onset (ago): day(s) (since admission at the end of December was admitted for pneumonia/afib) Duration: intermittent Location: generalized Migration: none Severity: moderate Quality: aching Relieving factors: movement and exertion Exacerbating factors: none Context: recent illness Associated symptoms: loss of appetite and other (weakness, dizziness, n/v cannot tolerate PO) Related Data Home Medications Medication Instructions Recorded Confirmed loratadine 10 mg tablet 10 mg PO DAILY PRN 02/26/20 01/01/21 sertraline 100 mg tablet 200 mg PO DAILY PRN 02/26/20 01/01/21 pioglitazone 15 mg tablet 15 mg PO BID 11/02/20 01/01/21 fluticasone propionate 50 1 spray INTRANASAL DAILY 12/20/20 01/01/21 mcg/actuation nasal spray,suspension albuterol sulfate 90 mcg/actuation 2 puff PO Q4-6H PRN 12/28/20 01/01/21 aerosol inhaler (Ventolin HFA) lisinopril 40 mg tablet 1 tab PO DAILY 12/28/20 01/01/21 Previous Rx's Medication Instructions Recorded rosuvastatin 40 mg tablet 40 mg PO DAILY 30 Days #30 tab 02/26/20 mirabegron 25 mg tablet,extended 25 mg PO DAILY 90 Days #90 tab 07/03/20 release 24 hr cholecalciferol (vitamin D3) 25 25 mcg PO DAILY #90 cap 08/24/20 mcg (1,000 unit) capsule diltiazem HCl 120 mg 120 mg PO DAILY #30 cap 12/23/20 capsule,extended release 24 hr (Cardizem CD) metformin 500 mg tablet,extended 1,000 mg PO BID #360 tab 12/23/20 release 24 hr ondansetron 4 mg disintegrating 4 mg PO Q8H PRN #20 tab 12/28/20 tablet Allergies Allergy/AdvReac Type Severity Reaction Status Date / Time ibuprofen [IBUPROFEN] Allergy Severe SICK TO Verified 12/28/20 15:11 MY STOMACH ciprofloxacin [From CIPRO] Allergy Intermediate SICK Verified 12/28/20 15:11 levofloxacin [From LEVAQUIN] Allergy Intermediate SICK , Verified 12/28/20 15:11 nausea, dizziness x days flu vaccine Allergy Intermediate Swelling Uncoded 04/10/20 21:07 Review of Systems Review of Systems: Constitutional : No Weight loss, No Fever, No Chills, pos Fatigue, pos Malaise ENT/Mouth : No sore throat, No Rhinorrhea Eyes: No Eye Pain, No Swelling, No Redness Cardiovascular : No Chest Pain, No SOB, No Dyspnea on Exertion, No Orthopnea, No Edema, No Palpitations Respiratory : No Cough, No Sputum, No Wheezing Gastrointestinal : pos Nausea, pos Vomiting, No Diarrhea, No Constipation, No abdominal Pain, No Hematochezia, No Melena Genitourinary : No Dysuria, No Urinary Frequency, No Hematuria, Musculoskeletal : No joint pain, No Myalgias, No Joint Swelling Skin : No Skin Lesions, No rash Neuro : pos Weakness, No Numbness, pos Dizziness, No Headache Psych : No Anxiety/Panic, No Depression Heme/Lymph: No Bruising, No Bleeding,No Lymphadenopathy Endocrine : No Polyuria, No Polydipsia All other systems reviewed and are negative [facility] [place] Past Medical History Attestation statement: The following information was validated with the patient. Medical History Asthma Bronchitis Diabetes Diabetic 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 Dyslipidemia GERD (gastroesophageal reflux disease) GERD (gastroesophageal reflux disease) Hypertension Obesity (BMI 30-39.9) Osteopenia Type 2 diabetes mellitus with hyperglycemia Vitamin D deficiency Surgical History History of esophagogastroduodenoscopy (EGD) Hx of colonoscopy Hx of foot surgery Family History Family History Father Heart failure Diabetes mellitus Mother Cholangiocarcinoma Diabetes mellitus Family history of hypertension Brother Lung cancer Family/Other Breast cancer Social History Social History Household Members: Children Housing: Apartment Do you presently have visiting nurse or other home services: Yes Alcohol intake: current Alcohol intake frequency: holidays/special occasions only Alcohol type: beer Patient Tobacco Use Status: Current everyday Tobacco user Cigarettes Per Day: 12 Advance Directives: No Advance Directives Date on File: 12/19/20 service: No Current occupational status: unemployed Physical Exam Vital Signs: Vital Signs: Last Vital Signs Temp 96.7 F L 01/01/21 11:47 Pulse 64 01/01/21 15:00 Resp 18 01/01/21 11:47 BP 138/62 01/01/21 15:00 Pulse Ox 96 01/01/21 11:47 Body Mass Index 30.1 Appearance: Alert. Oriented X3. No acute distress. Eyes: Pupils equal, round and reactive to light. ENT: Pharynx normal. Neck: Normal inspection. Neck supple. CVS: bradycardic heart rate and rhythm. Pulses normal. Respiratory: No respiratory distress. Breath sounds normal. Abdomen: Soft and non-tender. Skin: Skin warm and dry. Normal skin color. Normal skin turgor. Extremities: No lower extremity edema. No calf ttp Neuro: Oriented X 3. No motor deficit. No sensory deficit. Course Course Course Narrative: neg ortho VS no acute findings, will refer to PT/CM walking O2 sat 97% mag repleted, lactic acidosis elevated due to dehydration and not infection or severe sepsis refused rehab CTA no blood clot and no infection may benefit from VNA at home for medications Rose Marie from case management saw the patient but she is refusing any services MDM - Weakness MDM Narrative Medical decision making narrative: 60 yo female with recent admission at the end of december treated for CAP and new onset afib - Rx antibiotics as well as started on dilt, flecainide, xarelto she reports she couldn't tolerate the doxy Rx on 12/28 following return visit to the ED so she is not taking it. She also feels her xarelto is making her ill so she stopped that about 4 days ago - now she c/o feeling dizzy, weak with n/v at this time her PCP notes low O2 sats with any exertion will obtain labs, CTA for PE, EKG, ortho VS, dispo per results and findings. Lab Data Result diagrams: 01/01/21 12:31 01/01/21 12:31 Labs: Lab Results 01/01/21 01/01/21 01/01/21 Range/Units 12:31 12:31 12:31 WBC 5.3 (4.8-10.8) X10*3/uL RBC 3.65 L (4.20-5.50) X10*6/uL Hgb 12.1 (12.0-16.0) g/dl Hct 36.1 L (37-47) % MCV 98.9 H (80-98) fL MCH 33.2 H (27.0-33.0) pg MCHC 33.5 (31.0-35.0) g/dl RDW 12.4 (11.0-16.0) % Plt Count 241 (160-400) X10*3/uL MPV 8.6 L (9.4-12.3) fL Immature Gran % (Auto) 0.4 (0.0-0.4) % Neut % (Auto) 57.3 (45-73) % Lymph % (Auto) 32.6 (20-40) % [place] % (Auto) 8.0 (2-11) % Eos % (Auto) 1.5 (0-4) % Baso % (Auto) 0.2 (0-2) % Lymph # (Auto) 1.7 (1.2-4.9) X10*3/uL [place] # (Auto) 0.4 (0.1-1.2) X10*3/uL Eos # (Auto) 0.1 (0.0-0.4) X10*3/uL Baso # (Auto) 0.0 (0.0-0.2) X10*3/uL Abs Immat Gran (auto) 0.02 (0.00-0.03) X10*3/uL Absolute Neuts (auto) 3.0 (2.0-8.3) X10*3/uL Absolute Nucleated RBC 0.000 (0.0-0.012) X10*3/uL Nucleated RBC % (auto) 0.0 (0.0-0.2) /100WBC PT (9.9-13.0) SEC INR (0.9-1.1) APTT (24.1-38.0) SEC Sodium 141 (135-145) mmol/L Potassium 4.0 (3.3-5.1) mmol/L Chloride 106 (96-108) mmol/L Carbon Dioxide 27 (22-29) mmol/L Anion Gap 12 (12-20) BUN 13 (9-16) mg/dL Creatinine 0.79 (0.5-1.4) mg/dL Estim Creat Clear Calc 72.6 Estimated GFR > 60 Random Glucose 97 (60-115) mg/dL Lactic Acid (0.5-2.0) mmol/L Lactic Acid Fup @ 2Hr (0.5-2.0) mmol/L Calcium 9.3 (8.4-10.2) mg/dL Magnesium 1.3 L* (1.6-2.6) mg/dL Total Bilirubin 0.6 (0.0-1.0) mg/dL Direct Bilirubin 0.2 (0.0-0.5) mg/dL AST 27 (5-31) U/L ALT 32 H (0-31) U/L Alkaline Phosphatase 74 D (39-117) U/L Troponin I High Sens (<3.5-17.0) ng/L B-Natriuretic Peptide 159 H (<100) pg/mL Total Protein 6.0 L (6.5-8.0) g/dL Albumin 3.2 L (3.5-5.0) g/dL Urine Color Urine Appearance Urine pH (5.0-8.0) Ur Specific [place] (1.005-1.025) Urine Protein (NEG-TRACE) MG/DL Urine Glucose (UA) (NEG) MG/DL Urine Ketones (NEG) MG/DL Urine Blood (NEG) Urine Nitrite (NEG) Ur Leukocyte Esterase (NEG) COVID-19 (LINA) (Negative) COVID-19 Clin Com 01/01/21 01/01/21 01/01/21 Range/Units 12:31 12:31 12:31 WBC (4.8-10.8) X10*3/uL RBC (4.20-5.50) X10*6/uL Hgb (12.0-16.0) g/dl Hct (37-47) % MCV (80-98) fL MCH (27.0-33.0) pg MCHC (31.0-35.0) g/dl RDW (11.0-16.0) % Plt Count (160-400) X10*3/uL MPV (9.4-12.3) fL Immature Gran % (Auto) (0.0-0.4) % Neut % (Auto) (45-73) % Lymph % (Auto) (20-40) % [place] % (Auto) (2-11) % Eos % (Auto) (0-4) % Baso % (Auto) (0-2) % Lymph # (Auto) (1.2-4.9) X10*3/uL [place] # (Auto) (0.1-1.2) X10*3/uL Eos # (Auto) (0.0-0.4) X10*3/uL Baso # (Auto) (0.0-0.2) X10*3/uL Abs Immat Gran (auto) (0.00-0.03) X10*3/uL Absolute Neuts (auto) (2.0-8.3) X10*3/uL Absolute Nucleated RBC (0.0-0.012) X10*3/uL Nucleated RBC % (auto) (0.0-0.2) /100WBC PT 12.7 (9.9-13.0) SEC INR 1.1 (0.9-1.1) APTT 33.3 (24.1-38.0) SEC Sodium (135-145) mmol/L Potassium (3.3-5.1) mmol/L Chloride (96-108) mmol/L Carbon Dioxide (22-29) mmol/L Anion Gap (12-20) BUN (9-16) mg/dL Creatinine (0.5-1.4) mg/dL Estim Creat Clear Calc Estimated GFR Random Glucose (60-115) mg/dL Lactic Acid 2.1 H* (0.5-2.0) mmol/L Lactic Acid Fup @ 2Hr (0.5-2.0) mmol/L Calcium (8.4-10.2) mg/dL Magnesium (1.6-2.6) mg/dL Total Bilirubin (0.0-1.0) mg/dL Direct Bilirubin (0.0-0.5) mg/dL AST (5-31) U/L ALT (0-31) U/L Alkaline Phosphatase (39-117) U/L Troponin I High Sens (<3.5-17.0) ng/L B-Natriuretic Peptide (<100) pg/mL Total Protein (6.5-8.0) g/dL Albumin (3.5-5.0) g/dL Urine Color Urine Appearance Urine pH (5.0-8.0) Ur Specific [place] (1.005-1.025) Urine Protein (NEG-TRACE) MG/DL Urine Glucose (UA) (NEG) MG/DL Urine Ketones (NEG) MG/DL Urine Blood (NEG) Urine Nitrite (NEG) Ur Leukocyte Esterase (NEG) COVID-19 (LINA) Negative (Negative) COVID-19 Clin Com See Note 01/01/21 01/01/21 01/01/21 Range/Units 12:31 14:42 14:42 WBC (4.8-10.8) X10*3/uL RBC (4.20-5.50) X10*6/uL Hgb (12.0-16.0) g/dl Hct (37-47) % MCV (80-98) fL MCH (27.0-33.0) pg MCHC (31.0-35.0) g/dl RDW (11.0-16.0) % Plt Count (160-400) X10*3/uL MPV (9.4-12.3) fL Immature Gran % (Auto) (0.0-0.4) % Neut % (Auto) (45-73) % Lymph % (Auto) (20-40) % [place] % (Auto) (2-11) % Eos % (Auto) (0-4) % Baso % (Auto) (0-2) % Lymph # (Auto) (1.2-4.9) X10*3/uL [place] # (Auto) (0.1-1.2) X10*3/uL Eos # (Auto) (0.0-0.4) X10*3/uL Baso # (Auto) (0.0-0.2) X10*3/uL Abs Immat Gran (auto) (0.00-0.03) X10*3/uL Absolute Neuts (auto) (2.0-8.3) X10*3/uL Absolute Nucleated RBC (0.0-0.012) X10*3/uL Nucleated RBC % (auto) (0.0-0.2) /100WBC PT (9.9-13.0) SEC INR (0.9-1.1) APTT (24.1-38.0) SEC Sodium (135-145) mmol/L Potassium (3.3-5.1) mmol/L Chloride (96-108) mmol/L Carbon Dioxide (22-29) mmol/L Anion Gap (12-20) BUN (9-16) mg/dL Creatinine (0.5-1.4) mg/dL Estim Creat Clear Calc Estimated GFR Random Glucose (60-115) mg/dL Lactic Acid (0.5-2.0) mmol/L Lactic Acid Fup @ 2Hr 1.4 (0.5-2.0) mmol/L Calcium (8.4-10.2) mg/dL Magnesium 2.0 (1.6-2.6) mg/dL Total Bilirubin (0.0-1.0) mg/dL Direct Bilirubin (0.0-0.5) mg/dL AST (5-31) U/L ALT (0-31) U/L Alkaline Phosphatase (39-117) U/L Troponin I High Sens < 3.5 (<3.5-17.0) ng/L B-Natriuretic Peptide (<100) pg/mL Total Protein (6.5-8.0) g/dL Albumin (3.5-5.0) g/dL Urine Color Urine Appearance Urine pH (5.0-8.0) Ur Specific [place] (1.005-1.025) Urine Protein (NEG-TRACE) MG/DL Urine Glucose (UA) (NEG) MG/DL Urine Ketones (NEG) MG/DL Urine Blood (NEG) Urine Nitrite (NEG) Ur Leukocyte Esterase (NEG) COVID-19 (LINA) (Negative) COVID-19 Clin Com 01/01/21 Range/Units 14:42 WBC (4.8-10.8) X10*3/uL RBC (4.20-5.50) X10*6/uL Hgb (12.0-16.0) g/dl Hct (37-47) % MCV (80-98) fL MCH (27.0-33.0) pg MCHC (31.0-35.0) g/dl RDW (11.0-16.0) % Plt Count (160-400) X10*3/uL MPV (9.4-12.3) fL Immature Gran % (Auto) (0.0-0.4) % Neut % (Auto) (45-73) % Lymph % (Auto) (20-40) % [place] % (Auto) (2-11) % Eos % (Auto) (0-4) % Baso % (Auto) (0-2) % Lymph # (Auto) (1.2-4.9) X10*3/uL [place] # (Auto) (0.1-1.2) X10*3/uL Eos # (Auto) (0.0-0.4) X10*3/uL Baso # (Auto) (0.0-0.2) X10*3/uL Abs Immat Gran (auto) (0.00-0.03) X10*3/uL Absolute Neuts (auto) (2.0-8.3) X10*3/uL Absolute Nucleated RBC (0.0-0.012) X10*3/uL Nucleated RBC % (auto) (0.0-0.2) /100WBC PT (9.9-13.0) SEC INR (0.9-1.1) APTT (24.1-38.0) SEC Sodium (135-145) mmol/L Potassium (3.3-5.1) mmol/L Chloride (96-108) mmol/L Carbon Dioxide (22-29) mmol/L Anion Gap (12-20) BUN (9-16) mg/dL Creatinine (0.5-1.4) mg/dL Estim Creat Clear Calc Estimated GFR Random Glucose (60-115) mg/dL Lactic Acid (0.5-2.0) mmol/L Lactic Acid Fup @ 2Hr (0.5-2.0) mmol/L Calcium (8.4-10.2) mg/dL Magnesium (1.6-2.6) mg/dL Total Bilirubin (0.0-1.0) mg/dL Direct Bilirubin (0.0-0.5) mg/dL AST (5-31) U/L ALT (0-31) U/L Alkaline Phosphatase (39-117) U/L Troponin I High Sens (<3.5-17.0) ng/L B-Natriuretic Peptide (<100) pg/mL Total Protein (6.5-8.0) g/dL Albumin (3.5-5.0) g/dL Urine Color YELLOW Urine Appearance CLEAR Urine pH 6.0 (5.0-8.0) Ur Specific [place] 1.010 (1.005-1.025) Urine Protein TRACE (NEG-TRACE) MG/DL Urine Glucose (UA) NEG (NEG) MG/DL Urine Ketones NEG (NEG) MG/DL Urine Blood NEG (NEG) Urine Nitrite NEG (NEG) Ur Leukocyte Esterase NEG (NEG) COVID-19 (LINA) (Negative) COVID-19 Clin Com ECG Data Attestation: I personally reviewed and interpreted this ECG as follows: ECG interpretation date: 01/01/21 ECG interpretation time: 12:22 Interpretation: Rate: 54 Rhythm: sinus bradycardia [place]: normal Normal P waves. Normal DAVID. Normal QRS complex. ST T wave : normal no LYNNE qTC: normal prior studies: no acute ischemia The study has been interpreted contemporaneously by me. . Discharge Plan Discharge Clinical Impression: Weakness, Hypomagnesemia Patient Disposition: Home, Self-Care Instructions: Weakness (ED), Hypomagnesemia (ED) Additional Instructions: return to ED for any worsening symptoms or concerns you were offered rehab but refused, you were also offered home help like visiting nurses but refused. your CT scan of your lungs shows no pneumonia it has resolved Prescriptions: No Action mirabegron 25 mg tablet extended release 24 hr 25 mg PO DAILY 90 Days Qty: 90 RF: 2 cholecalciferol (vitamin D3) 25 mcg (1,000 unit) capsule 25 mcg PO DAILY Qty: 90 RF: 1 metformin 500 mg tablet extended release 24 hr 1,000 mg PO BID Qty: 360 RF: 0 pioglitazone 15 mg tablet 15 mg PO BID RF: 0 fluticasone propionate 50 mcg/actuation spray,suspension 1 spray intranasal DAILY RF: 0 diltiazem HCl [Cardizem CD] 120 mg Capsule,Extended Release 24hr 120 mg PO DAILY Qty: 30 RF: 0 albuterol sulfate [Ventolin HFA] 90 mcg/actuation HFA aerosol inhaler 2 puff PO Q4-6H PRN (Reason: Shortness Of Breath) RF: 0 lisinopril 40 mg tablet 1 tab PO DAILY RF: 0 ondansetron 4 mg tablet,disintegrating 4 mg PO Q8H PRN (Reason: nausea and vomiting) Qty: 20 RF: 0 loratadine 10 mg tablet 10 mg PO DAILY PRN (Reason: Allergy Symptoms) RF: 0 sertraline 100 mg tablet 200 mg PO DAILY PRN (Reason: Anxiety) RF: 0 rosuvastatin 40 mg tablet 40 mg PO DAILY 30 Days Qty: 30 RF: 5 Referrals: Areli Elam MENTAL HEALTH COUNSELOR [Primary Care Provider] - 3 days
[2021-01-01 12:38] LABS: MANUAL DIFF FLAG NO
[2021-01-01 12:40] LABS: Basophils Percent Auto 0.2 % (0-2); Eosinophils Absolute Auto 0.1 X10*3/uL (0.0-0.4); Eosinophils Percent Auto 1.5 % (0-4); Hematocrit 36.1 % (37-47); Hemoglobin 12.1 g/dl (12.0-16.0); Imm Gran Abs Auto 0.02 X10*3/uL (0.00-0.03); Imm Gran Pct Auto 0.4 % (0.0-0.4); Lymphocytes Absolute Auto 1.7 X10*3/uL (1.2-4.9); Lymphocytes Percent Auto 32.6 % (20-40); Mean Corpuscular HGB Conc 33.5 g/dl (31.0-35.0); Mean Corpuscular Hemoglobin 33.2 pg (27.0-33.0); Mean Corpuscular Volume 98.9 fL (80-98); Mean Platelet Volume 8.6 fL (9.4-12.3); Monocytes Absolute Auto 0.4 X10*3/uL (0.1-1.2); Neutrophils Percent Auto 57.3 % (45-73); Platelet Count 241 X10*3/uL (160-400); Red Blood Count 3.65 X10*6/uL (4.20-5.50); Red Cell Distribution Width 12.4 % (11.0-16.0); White Blood Count 5.3 X10*3/uL (4.8-10.8)
[2021-01-01 12:45] LABS: INTERNATIONAL NORM RATIO 1.1 (0.9-1.1); Prothrombin Time 12.7 SEC (9.9-13.0)
[2021-01-01 12:48] LABS: Partial Thromboplastin Time 33.3 SEC (24.1-38.0)
[2021-01-01 12:55] LABS: COVID-19 Test Negative (Negative)
[2021-01-01 13:00] LABS: Alanine Aminotransferase 32 U/L (0-31); Albumin Level 3.2 g/dL (3.5-5.0); Alkaline Phosphatase 74 U/L (39-117); Anion Gap 12 (12-20); Aspartate Amino Transferase 27 U/L (5-31); B Type Natriuretic Peptide 159 pg/mL (<100); Bilirubin Direct 0.2 mg/dL (0.0-0.5); Bilirubin Total 0.6 mg/dL (0.0-1.0); Blood Urea Nitrogen 13 mg/dL (9-16); Calcium 9.3 mg/dL (8.4-10.2); Carbon Dioxide 27 mmol/L (22-29); Chloride 106 mmol/L (96-108); Creatinine Clr Calc Pharmacy 72.6; Estimated Glomerular Filt Rate > 60; Glucose Random 97 mg/dL (60-115); Lactic Acid 2.1 mmol/L (0.5-2.0); Magnesium 1.3 mg/dL (1.6-2.6); Sodium 141 mmol/L (135-145); Troponin-I High Sensitivity < 3.5 ng/L (<3.5-17.0)
[2021-01-01] MEDS: Magnesium Sulfate/H2O 2 GM/50 ML PIGGYBACK IV (13:37)
[2021-01-01] MEDS: 0.9 % Sodium Chloride 500 ML IV (13:37)
[2021-01-01] MEDS: iohexoL 350 MG/ML 100 ML INFUS..BTL IV (13:46)
[2021-01-01 14:14] VITALS: BP 139/62; PULSE 61
[2021-01-01 14:19] VITALS: BP 145/63; PULSE 62
[2021-01-01 14:20] VITALS: BP 138/62; PULSE 64
[2021-01-01 14:35] LABS: Reflex Lactate? Lactic Acid Added
[2021-01-01 14:52] LABS: Appearance Urine CLEAR; Color Urine YELLOW; Glucose Urine UA NEG (NEG); Leukocyte Esterase Urine NEG (NEG); Nitrite Urine NEG (NEG); Urine Blood NEG (NEG); Urine Ketones NEG (NEG); Urine Protein TRACE MG/DL (NEG-TRACE)
[2021-01-01 14:59] LABS: ~Lactic Acid-LAB USE ONLY 1.4 mmol/L (0.5-2.0)
[2021-01-01 15:00] VITALS: BP 138/62; PULSE 64
--- NOTE | 2021-01-01 16:42 | MHC.CM.ED ---
CM met with patient at request of Dr. Meyer with concerns about pt. needing assistance at home. Pt tells CM that her son, Vahe Kenyon, works as her ELECTRON GUN ASSEMBLER through [employer]. Pt states he does everything for her. Pt lives in a 2 family house and her son lives upstairs. Pt uses a cane and walker when necessary. Pt refuses any additional help at home. Pt tells CM she has no difficulty with her medications and her son checks in with her about taking them. CM spoke with patient about having VNA for medication management, but pt denies the need and is requesting to be discharged. CM spoke with Dr. Meyer regarding above conversation. Pt to be d/c home.
== END 2021-01-01 16:05 | disposition home or self-care (01) ==
PROVIDERS: Emergency Provider Emergency Medicine; PCP Nurse Practitioner Primary Care
DX: R42 Dizziness and giddiness (principal); E83.42 Hypomagnesemia; I48.91 Unspecified atrial fibrillation; R06.02 Shortness of breath; F17.200 Nicotine dependence, unspecified, uncomplicated; Z79.01 Long term (current) use of anticoagulants; Z20.822 Contact with and (suspected) exposure to COVID-19; Z71.6 Tobacco abuse counseling; Z79.899 Other long term (current) drug therapy
CPT/HCPCS: 36415; 71275; 80048; 80076; 81003; 83605; 83735; 83880; 84484; 85025; 85610; 85730; 87040; 87635; 93005; 96361; 96365; 96366; 97161; 99283; 99284; J3475; Q9967

== ENCOUNTER → 2021-01-22 09:49 | Outpatient (REF) | payer OTHER, SELFPAY ==
--- NOTE | ~2021-01-22 | NM_ITS ---
Myocardial perfusion study Indication: Paroxysmal atrial fibrillation to evaluate for myocardial ischemia Technique: The patient was brought in for a Lexiscan perfusion study on 01/22/2021. Patient performed low-level exercise and was injected 0.4 mg of Lexiscan intravenously. Within a minute of injection, 25 mCi of sestamibi was given intravenously. Images were obtained using the SPECT gamma camera interlaced with the gating device. Images were obtained in supine position. Resting perfusion study was performed on 01/27/2021. Patient was administered 25 mCi of sestamibi intravenously at rest. Images were then obtained in supine position. Images obtained with and without CT attenuation. Total DLP 106 mGy-cm. Images were processed with the software and compared side to side in short axis, horizontal long axis and vertical long axis views. Findings: The stress perfusion study showed nonattenuated images show mildly reduced uptake in the distal lateral as well as the apex and minimally of the inferior wall of the LV myocardium. Remainder of the LV myocardium is normally perfused. Attenuation corrected images show mildly reduced uptake in the apex of the LV myocardium. The gated study shows normal LV systolic function with calculated LVEF of 71%. LV cavity is normal in size. The gated study shows normal systolic wall thickening and contraction of segments. Resting study shows nonattenuated images show normal uptake of radiotracer in all segments of LV myocardium. Attenuation corrected images show mildly reduced uptake in the apex of the LV myocardium. Gating at rest reveals normal systolic wall motion with ejection fraction at 65%. The findings are consistent with no reversible defect on nonattenuated images with distal lateral as well as apex and thinning of the inferior wall which may suggest ischemia. Equivocal for ischemia. NM/NM barbara perf SPECT rest & str Impression: 1. Myocardial perfusion imaging study shows equivocal for distal lateral and apical as well as possible inferior ischemia 2. Gated LVEF is 71% 3. Transient ischemic dilatation not present EKG is nondiagnostic for ischemia
--- NOTE | 2021-01-22 09:56 | CA_ITS ---
Acquisition Time: 2021-01-22 09:58:05 Total Exercise Time: 00:02:00 Test Indications: afib Medications: see chart Protocol: LEXISCAN Max HR: 125 BPM 79% of Pred: 158 BPM Max BP: 158/072 mmHG Max Work Load: 1.0 METS Pharmacological stress test with Lexiscan injection, while sitting and kicking her legs, without anginal symptoms, without arrythmia, with normotensive response to injection, with nondiagnostic EKG for ischemia. In recovery she reported weakness / fatigue that was treated with Aminophylline 75mg IVP with improvement in symptom. Nuclear images pending. Test reviewed with Dr Vela. Referred By: Yovanny Reid Overread By: DOTTY DILL
--- NOTE | 2021-01-22 09:56 | HM_ITS ---
Total monitoring time 4 days and 2 hours. Underlying rhythm is sinus. Minimum heart rate 55/Min. Maximum 118/Min. Average 71/Min. No atrial fibrillation or flutter. Very rare supraventricular ectopy with burden of less than 0.01%. No patient events. MTDD
== END ==
LOC: HO.CARD 09:49
PROVIDERS: Visit Provider Internal Medicine Cardiovascular Disease
DX: I48.0 Paroxysmal atrial fibrillation (principal); E66.9 Obesity, unspecified; E11.65 Type 2 diabetes mellitus with hyperglycemia; J45.909 Unspecified asthma, uncomplicated; G47.10 Hypersomnia, unspecified
CPT/HCPCS: 78452; 93017; 93242; A9500; J0280; J2785

== ENCOUNTER → 2021-01-26 14:36 | Outpatient (REF) | payer OTHER, SELFPAY | LOC: HO.SL 14:36 | PROVIDERS: PCP Nurse Practitioner Primary Care; Visit Provider Internal Medicine Cardiovascular Disease | DX: J18.9 Pneumonia, unspecified organism (principal); I48.0 Paroxysmal atrial fibrillation | CPT/HCPCS: 93005; 99212 ==

== ENCOUNTER → 2021-02-01 08:47 | Outpatient (REF) | payer OTHER, SELFPAY | LOC: HO.SL 08:47 | PROVIDERS: PCP Nurse Practitioner Primary Care; Visit Provider Internal Medicine Cardiovascular Disease | DX: Z13.89 Encounter for screening for other disorder (principal) ==

== ENCOUNTER 2021-02-08 14:53 | Outpatient (REF) | payer OTHER, SELFPAY ==
--- NOTE | ~2021-02-08 | MM_ITS ---
EXAMINATION: MM SCREENING DIGITAL BREAST TOMOSYNTHESIS, BILATERAL CLINICAL INFORMATION: Screening. Asymptomatic. The lifetime risk of breast cancer based on the Tyrer-Cuzick Model is 3%. COMPARISON: Mammography: 06/28/2018, 06/16/2017, 05/18/2016 TECHNIQUE: Digital breast tomosynthesis is performed in both the craniocaudal and mediolateral oblique views along with computer-aided detection (CAD). Synthesized 2D images are generated from the tomosynthesis. FINDINGS: There are scattered areas of fibroglandular density (ACR BI-RADS breast composition Category b). There are no significant masses, abnormal calcifications, or other abnormalities. Parenchymal pattern is similar to prior exams. No developing density. No significant changes. Small dermal lesion overlies right axilla on MLO view. MM/MM tomosynthesis screening BI IMPRESSION: No mammographic evidence of malignancy. ASSESSMENT: BI-RADS 2: Benign RECOMMENDATION: Routine annual mammography screening. This patient's information was entered into a reminder system with a target due date for their next mammogram.
== END 2021-02-08 14:54 | disposition home or self-care (01) ==
LOC: HO.MAMMO 14:53
PROVIDERS: Visit Provider Nurse Practitioner Primary Care
DX: Z12.31 Encounter for screening mammogram for malignant neoplasm of breast (principal)
CPT/HCPCS: 77063; 77067

== ENCOUNTER 2021-03-18 08:14 | Outpatient (REF) | payer OTHER, SELFPAY ==
[2021-03-18 09:09] LABS: Alanine Aminotransferase 13 U/L (0-31); Albumin Level 4.1 g/dL (3.5-5.0); Alkaline Phosphatase 69 U/L (39-117); Anion Gap 11 (12-20); Aspartate Amino Transferase 15 U/L (5-31); Bilirubin Total 0.5 mg/dL (0.0-1.0); Blood Urea Nitrogen 19 mg/dL (9-16); Calcium 9.6 mg/dL (8.4-10.2); Carbon Dioxide 29 mmol/L (22-29); Chloride 105 mmol/L (96-108); Cholesterol 175 mg/dL; Estimated Glomerular Filt Rate 56; Glucose Fasting 129 mg/dL (60-99); HDL Cholesterol 61 mg/dL; LDL Cholesterol Calculated 88 mg/dl; Potassium 4.4 mmol/L (3.3-5.1); Sodium 141 mmol/L (135-145); Total Protein 6.7 g/dL (6.5-8.0); Triglycerides 132 mg/dL
[2021-03-18 09:29] LABS: Vitamin D 25-OH Total 40.6 ng/mL (>30)
[2021-03-18 10:19] LABS: Creatinine Urine 102.89 mg/dL; Microalbum/Creatinine Ratio Ur 94.2 ug/mg cr
[2021-03-20 02:47] LABS: LDL Cholesterol Direct 85 mg/dL (<100)
== END 2021-03-18 08:15 | disposition home or self-care (01) ==
LOC: HO.LAB 08:14
PROVIDERS: PCP Nurse Practitioner Primary Care; Visit Provider Nurse Practitioner Gerontology
DX: E11.9 Type 2 diabetes mellitus without complications (principal); E55.9 Vitamin D deficiency, unspecified
CPT/HCPCS: 36415; 80053; 80061; 82043; 82306; 83721

== ENCOUNTER 2021-04-04 14:02 | Emergency (ER) | payer OTHER, SELFPAY ==
--- NOTE | ~2021-04-04 | XR_ITS ---
EXAMINATION: XR CHEST CLINICAL INFORMATION: Chest pain. COMPARISON: 12/20/2020 portable chest. TECHNIQUE: Frontal view of the chest was obtained. FINDINGS: No significant abnormality is noted involving the heart, lungs, mediastinum, bony thorax or soft tissues. XR/XR chest 1V IMPRESSION: No acute cardiopulmonary process.
[2021-04-04 15:46] VITALS: BP 151/67; PULSE 70; RESP 18; TEMP 36.7; O2SAT 97; BMI 34.7
--- NOTE | 2021-04-04 15:48 | ECG_ITS ---
Test Reason : SOB Blood Pressure : / mmHG Vent. Rate : 067 BPM Atrial Rate : 067 BPM P-R Int : 166 ms QRS Dur : 084 ms QT Int : 402 ms P-R-T Axes : 035 008 042 degrees QTc Int : 424 ms Normal sinus rhythm Normal ECG When compared with ECG of 01-JAN-2021 12:15, QT has lengthened Referred By: Generic ED Physician Electronically Signed By:JANNETH BAIG MD
[2021-04-04 16:14] LABS: MANUAL DIFF FLAG NO
[2021-04-04 16:16] LABS: Basophils Percent Auto 0.3 % (0-2); Eosinophils Absolute Auto 0.1 X10*3/uL (0.0-0.4); Eosinophils Percent Auto 2.4 % (0-4); Hematocrit 36.5 % (37.0-47.0); Hemoglobin 12.2 g/dl (12.0-16.0); Imm Gran Abs Auto 0.02 X10*3/uL (0.00-0.03); Imm Gran Pct Auto 0.3 % (0.0-0.4); Lymphocytes Absolute Auto 1.7 X10*3/uL (1.2-4.9); Lymphocytes Percent Auto 29.3 % (20-40); Mean Corpuscular HGB Conc 33.4 g/dl (31.0-35.0); Mean Corpuscular Hemoglobin 33.3 pg (27.0-33.0); Mean Corpuscular Volume 99.7 fL (80.0-98.0); Mean Platelet Volume 8.6 fL (9.4-12.3); Monocytes Absolute Auto 0.4 X10*3/uL (0.1-1.2); Monocytes Percent Auto 7.1 % (2-11); Neutrophils Absolute Auto 3.5 x10*3/uL (2.0-8.3); Neutrophils Percent Auto 60.6 % (45-73); Platelet Count 235 X10*3/uL (160-400); Red Blood Count 3.66 X10*6/uL (4.20-5.50); Red Cell Distribution Width 12.4 % (11.0-16.0); White Blood Count 5.8 X10*3/uL (4.8-10.8)
[2021-04-04 16:35] LABS: COVID-19 Test Negative (Negative)
[2021-04-04 16:38] LABS: Blood Urea Nitrogen 22 mg/dL (9-16); Calcium 9.4 mg/dL (8.4-10.2); Estimated Glomerular Filt Rate 57; Glucose Random 103 mg/dL (60-115); Troponin-I High Sensitivity < 3.5 ng/L (<3.5-17.0)
[2021-04-04 16:45] LABS: Anion Gap 10 (12-20); Carbon Dioxide 27 mmol/L (22-29); Chloride 108 mmol/L (96-108); Sodium 141 mmol/L (135-145)
== END 2021-04-05 01:20 | disposition left against medical advice (07) ==
PROVIDERS: Physician Assistant; Emergency Provider Emergency Medicine; PCP Nurse Practitioner Primary Care
DX: R07.9 Chest pain, unspecified (principal); R06.02 Shortness of breath; Z20.822 Contact with and (suspected) exposure to COVID-19
CPT/HCPCS: 36415; 71045; 80048; 84484; 85025; 87635; 93005; 99283

== ENCOUNTER 2021-04-05 06:27 | Emergency (ER) | payer OTHER, SELFPAY ==
[2021-04-05 06:32] VITALS: BP 118/58; PULSE 62; RESP 18; TEMP 36.9; O2SAT 100; BMI 34.7
--- NOTE | 2021-04-05 10:02 | ECG_ITS ---
Test Reason : CHEST PAIN Blood Pressure : / mmHG Vent. Rate : 062 BPM Atrial Rate : 062 BPM P-R Int : 188 ms QRS Dur : 084 ms QT Int : 388 ms P-R-T Axes : 047 009 035 degrees QTc Int : 393 ms Normal sinus rhythm Normal ECG When compared with ECG of 04-APR-2021 15:57, No significant change was found Referred By: Leon Hancock Electronically Signed By:JANNETH BAIG MD
[2021-04-05 10:26] LABS: MANUAL DIFF FLAG NO
[2021-04-05 10:27] LABS: Basophils Percent Auto 0.5 % (0-2); Eosinophils Absolute Auto 0.1 X10*3/uL (0.0-0.4); Eosinophils Percent Auto 2.2 % (0-4); Hematocrit 37.2 % (37.0-47.0); Hemoglobin 12.1 g/dl (12.0-16.0); Imm Gran Abs Auto 0.03 X10*3/uL (0.00-0.03); Imm Gran Pct Auto 0.5 % (0.0-0.4); Lymphocytes Percent Auto 35.3 % (20-40); Mean Corpuscular HGB Conc 32.5 g/dl (31.0-35.0); Mean Corpuscular Hemoglobin 32.3 pg (27.0-33.0); Mean Corpuscular Volume 99.2 fL (80.0-98.0); Mean Platelet Volume 8.4 fL (9.4-12.3); Monocytes Absolute Auto 0.3 X10*3/uL (0.1-1.2); Monocytes Percent Auto 6.1 % (2-11); Neutrophils Absolute Auto 3.1 x10*3/uL (2.0-8.3); Neutrophils Percent Auto 55.4 % (45-73); Platelet Count 216 X10*3/uL (160-400); Red Blood Count 3.75 X10*6/uL (4.20-5.50); Red Cell Distribution Width 12.3 % (11.0-16.0); White Blood Count 5.5 X10*3/uL (4.8-10.8)
--- NOTE | 2021-04-05 10:31 | ED_ITS ---
HPI - SOB/Dyspnea General Chief Complaint: Dyspnea Stated Complaint: lung pain Time Seen by Provider: 04/05/21 10:00 Source: patient Mode of arrival: ambulatory Limitations: no limitations History of Present Illness HPI Narrative: 60 female presented c/o SOB cough no fever no chills no chest pain,chest wll with cough only MD elicited complaint: shortness of breath and cough Pertinent past history: pneumonia Onset (ago): day(s) (3) Timing: constant Severity: mild Exacerbating factors: other (cough) Relieving factors: nothing Associated symptoms: denies other symptoms Related Data Home Medications Medication Instructions Recorded Confirmed loratadine 10 mg tablet 10 mg PO DAILY PRN 02/26/20 01/26/21 sertraline 100 mg tablet 200 mg PO DAILY PRN 02/26/20 01/26/21 pioglitazone 15 mg tablet 15 mg PO BID 11/02/20 01/26/21 fluticasone propionate 50 1 spray INTRANASAL DAILY 12/20/20 01/26/21 mcg/actuation nasal spray,suspension albuterol sulfate 90 mcg/actuation 2 puff PO Q4-6H PRN 12/28/20 01/26/21 aerosol inhaler (Ventolin HFA) lisinopril 40 mg tablet 1 tab PO DAILY 12/28/20 01/26/21 Previous Rx's Medication Instructions Recorded mirabegron 25 mg tablet,extended 25 mg PO DAILY 90 Days #90 tab 07/03/20 release 24 hr apixaban 5 mg tablet (Eliquis) 5 mg PO BID #60 tab 01/26/21 diltiazem HCl 120 mg 120 mg PO DAILY #30 cap 01/26/21 capsule,extended release 24 hr (Cardizem CD) rosuvastatin 40 mg tablet 40 mg PO DAILY 30 Days #90 tab 02/12/21 metformin 500 mg tablet,extended 1,000 mg PO BID #360 tab 03/15/21 release 24 hr cholecalciferol (vitamin D3) 25 25 mcg PO DAILY #30 cap 04/04/21 mcg (1,000 unit) capsule amoxicillin 500 mg tablet 500 mg PO Q8H 5 Days #15 tab 04/05/21 Allergies Allergy/AdvReac Type Severity Reaction Status Date / Time ibuprofen [IBUPROFEN] Allergy Severe SICK TO Verified 04/05/21 06:32 MY STOMACH ciprofloxacin [From CIPRO] Allergy Intermediate SICK Verified 04/05/21 06:32 levofloxacin [From LEVAQUIN] Allergy Intermediate SICK , Verified 04/05/21 06:32 nausea, dizziness x days flu vaccine Allergy Intermediate Swelling Uncoded 01/26/21 13:59 Review of Systems Review of Systems: Yes all other systems are reviewed and are negative Constitutional: Constitutional: Denies fever(s) Cardiovascular: Cardiovascular: Denies chest pain at rest and Denies chest pain with activity Respiratory: Respiratory: Reports pain with cough PMFSH Past Medical History Medical History Asthma Bronchitis Diabetes Diabetic 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 Dyslipidemia GERD (gastroesophageal reflux disease) GERD (gastroesophageal reflux disease) Hypertension Obesity (BMI 30-39.9) Osteopenia Type 2 diabetes mellitus with hyperglycemia Vitamin D deficiency Surgical History History of esophagogastroduodenoscopy (EGD) Hx of colonoscopy Hx of foot surgery Family History Family History Father Heart failure Diabetes mellitus Mother Cholangiocarcinoma Diabetes mellitus Family history of hypertension Family history of heart attack Brother Lung cancer Family/Other Breast cancer Sister Social History Social History Household Members: Children Housing: Apartment Do you presently have visiting nurse or other home services: Yes Alcohol intake: unknown Patient Tobacco Use Status: Former Tobacco user Cigarettes Per Day: 12 Years Smoked: 45 Use of substances other than those prescribed or required for medical reasons: Unknown Advance Directives: Yes Advance Directives on File: Yes Advance Directives Date on File: 12/19/20 service: No Current occupational status: unemployed Physical Exam Vital Signs: Vital Signs: Last Vital Signs Temp 97.7 F 04/05/21 10:33 Pulse 70 04/05/21 10:33 Resp 18 04/05/21 10:33 BP 153/76 H 04/05/21 10:33 Pulse Ox 98 04/05/21 10:33 BMI result Body Mass Index 34.7 Const: General: cooperative, comfortable and no acute distress Nutritional Appearance: average body habitus and well nourished HENMT: Head: Yes normal to inspection Face and sinus: Yes normal facial exam Mouth: Normal oral and palatal mucosa present Neck: Neck: Yes normal visual inspection, Yes full ROM and Yes no lymphadenopathy Thyroid: Thyroid normal Chest: Chest palpation & inspection: normal inspection of the chest Resp: Effort & Inspection: normal respiratory effort Auscultation: rhonchi Cardio: Jugular venous distension: no JVD Rate: regular rate Rhythm: regular rhythm GI: Inspection: Yes normal to inspection Palpation (GI): Soft to palpation Percussion: Yes normal to percussion Auscultation: normal bowel sounds Course Reevaluation(s) Reevaluation #1: Patient remain hemodynamically stable, O2 sat is 100%, chest x- ray was done and 12 hours ago was normal,( the patient refused another chest x- ray), BNP is normal troponin is negative, unlikely PE because the patient is anticoagulated with Eliquis, at this time we could discharge the patient home MDM - SOB/Dyspnea Lab Data Result diagrams: 04/05/21 10:21 04/05/21 10:21 Labs: Lab Results 04/05/21 04/05/21 04/05/21 Range/Units 10:21 10:21 10:21 WBC 5.5 (4.8-10.8) X10*3/uL RBC 3.75 L (4.20-5.50) X10*6/uL Hgb 12.1 (12.0-16.0) g/dl Hct 37.2 (37.0-47.0) % MCV 99.2 H (80.0-98.0) fL MCH 32.3 (27.0-33.0) pg MCHC 32.5 (31.0-35.0) g/dl RDW 12.3 (11.0-16.0) % Plt Count 216 (160-400) X10*3/uL MPV 8.4 L (9.4-12.3) fL Immature Gran % (Auto) 0.5 H (0.0-0.4) % Neut % (Auto) 55.4 (45-73) % Lymph % (Auto) 35.3 (20-40) % Mccormick % (Auto) 6.1 (2-11) % Eos % (Auto) 2.2 (0-4) % Baso % (Auto) 0.5 (0-2) % Lymph # (Auto) 2.0 (1.2-4.9) X10*3/uL Mccormick # (Auto) 0.3 (0.1-1.2) X10*3/uL Eos # (Auto) 0.1 (0.0-0.4) X10*3/uL Baso # (Auto) 0.0 (0.0-0.2) X10*3/uL Abs Immat Gran (auto) 0.03 (0.00-0.03) X10*3/uL Absolute Neuts (auto) 3.1 (2.0-8.3) x10*3/uL Absolute Nucleated RBC 0.000 (0.0-0.012) X10*3/uL Nucleated RBC % (auto) 0.0 (0.0-0.2) /100WBC Sodium 142 (135-145) mmol/L Potassium 4.3 (3.3-5.1) mmol/L Chloride 108 (96-108) mmol/L Carbon Dioxide 29 (22-29) mmol/L Anion Gap 9 L (12-20) BUN 22 H (9-16) mg/dL Creatinine 0.91 (0.5-1.4) mg/dL Estim Creat Clear Calc 65.3 Estimated GFR > 60 Random Glucose 98 (60-115) mg/dL Calcium 9.3 (8.4-10.2) mg/dL Total Bilirubin 0.3 (0.0-1.0) mg/dL AST 18 (5-31) U/L ALT 19 (0-31) U/L Alkaline Phosphatase 64 (39-117) U/L Troponin I High Sens < 3.5 (<3.5-17.0) ng/L B-Natriuretic Peptide (<100) pg/mL Total Protein 7.0 (6.5-8.0) g/dL Albumin 4.1 (3.5-5.0) g/dL Influenza Type A (PCR) (Negative) Influenza Type B (PCR) (Negative) RSV RNA Qual (PCR) (Negative) SARS-CoV-2 RNA (RT-PCR) (Negative) 04/05/21 04/05/21 Range/Units 10:21 10:33 WBC (4.8-10.8) X10*3/uL RBC (4.20-5.50) X10*6/uL Hgb (12.0-16.0) g/dl Hct (37.0-47.0) % MCV (80.0-98.0) fL MCH (27.0-33.0) pg MCHC (31.0-35.0) g/dl RDW (11.0-16.0) % Plt Count (160-400) X10*3/uL MPV (9.4-12.3) fL Immature Gran % (Auto) (0.0-0.4) % Neut % (Auto) (45-73) % Lymph % (Auto) (20-40) % Mccormick % (Auto) (2-11) % Eos % (Auto) (0-4) % Baso % (Auto) (0-2) % Lymph # (Auto) (1.2-4.9) X10*3/uL Mccormick # (Auto) (0.1-1.2) X10*3/uL Eos # (Auto) (0.0-0.4) X10*3/uL Baso # (Auto) (0.0-0.2) X10*3/uL Abs Immat Gran (auto) (0.00-0.03) X10*3/uL Absolute Neuts (auto) (2.0-8.3) x10*3/uL Absolute Nucleated RBC (0.0-0.012) X10*3/uL Nucleated RBC % (auto) (0.0-0.2) /100WBC Sodium (135-145) mmol/L Potassium (3.3-5.1) mmol/L Chloride (96-108) mmol/L Carbon Dioxide (22-29) mmol/L Anion Gap (12-20) BUN (9-16) mg/dL Creatinine (0.5-1.4) mg/dL Estim Creat Clear Calc Estimated GFR Random Glucose (60-115) mg/dL Calcium (8.4-10.2) mg/dL Total Bilirubin (0.0-1.0) mg/dL AST (5-31) U/L ALT (0-31) U/L Alkaline Phosphatase (39-117) U/L Troponin I High Sens (<3.5-17.0) ng/L B-Natriuretic Peptide 41 (<100) pg/mL Total Protein (6.5-8.0) g/dL Albumin (3.5-5.0) g/dL Influenza Type A (PCR) NEGATIVE (Negative) Influenza Type B (PCR) NEGATIVE (Negative) RSV RNA Qual (PCR) NEGATIVE (Negative) SARS-CoV-2 RNA (RT-PCR) NEGATIVE (Negative) Imaging Data Chest x-ray: Radiologist's impression: cc: Generic ED Physician~ EXAMINATION: XR CHEST CLINICAL INFORMATION: Chest pain. COMPARISON: 12/20/2020 portable chest. TECHNIQUE: Frontal view of the chest was obtained. FINDINGS: No significant abnormality is noted involving the heart, lungs, mediastinum, bony thorax or soft tissues. XR/XR chest 1V IMPRESSION: No acute cardiopulmonary process. ? Dictated By: CHRISTOPHER KING MD Signed By: <Electronically signed by CHRISTOPHER KING MD in OV> 04/04/21 1604 ECG Data Attestation: I personally reviewed and interpreted this ECG as follows: ECG interpretation date: 04/05/21 Pacemaker model: NSR 62 no sichemia Discharge Plan Discharge Clinical Impression: Bronchitis Patient Disposition: Home, Self-Care Instructions: Acute Bronchitis (ED) Prescriptions: New amoxicillin 500 mg tablet 500 mg PO Q8H 5 Days Qty: 15 RF: 0 No Action mirabegron 25 mg tablet extended release 24 hr 25 mg PO DAILY 90 Days Qty: 90 RF: 2 rosuvastatin 40 mg tablet 40 mg PO DAILY 30 Days Qty: 90 RF: 1 metformin 500 mg tablet extended release 24 hr 1,000 mg PO BID Qty: 360 RF: 1 cholecalciferol (vitamin D3) 25 mcg (1,000 unit) capsule 25 mcg PO DAILY Qty: 30 RF: 11 pioglitazone 15 mg tablet 15 mg PO BID RF: 0 fluticasone propionate 50 mcg/actuation spray,suspension 1 spray intranasal DAILY RF: 0 albuterol sulfate [Ventolin HFA] 90 mcg/actuation HFA aerosol inhaler 2 puff PO Q4-6H PRN (Reason: Shortness Of Breath) RF: 0 lisinopril 40 mg tablet 1 tab PO DAILY RF: 0 loratadine 10 mg tablet 10 mg PO DAILY PRN (Reason: Allergy Symptoms) RF: 0 sertraline 100 mg tablet 200 mg PO DAILY PRN (Reason: Anxiety) RF: 0 Eliquis 5 mg tablet 5 mg PO BID Qty: 60 RF: 5 diltiazem HCl [Cardizem CD] 120 mg capsule,extended release 24hr 120 mg PO DAILY Qty: 30 RF: 5
[2021-04-05 10:33] VITALS: BP 153/76; PULSE 70; RESP 18; TEMP 36.5; O2SAT 98
[2021-04-05 10:45] LABS: Alanine Aminotransferase 19 U/L (0-31); Albumin Level 4.1 g/dL (3.5-5.0); Alkaline Phosphatase 64 U/L (39-117); Anion Gap 9 (12-20); Aspartate Amino Transferase 18 U/L (5-31); Bilirubin Total 0.3 mg/dL (0.0-1.0); Blood Urea Nitrogen 22 mg/dL (9-16); Calcium 9.3 mg/dL (8.4-10.2); Carbon Dioxide 29 mmol/L (22-29); Chloride 108 mmol/L (96-108); Creatinine Clr Calc Pharmacy 65.3; Estimated Glomerular Filt Rate > 60; Glucose Random 98 mg/dL (60-115); Potassium 4.3 mmol/L (3.3-5.1); Sodium 142 mmol/L (135-145)
[2021-04-05 10:50] LABS: B Type Natriuretic Peptide 41 pg/mL (<100); Troponin-I High Sensitivity < 3.5 ng/L (<3.5-17.0)
[2021-04-05 11:21] LABS: Influenza A PCR NEGATIVE (Negative); Influenza B PCR NEGATIVE (Negative); Resp Syncy Virus RNA Qual PCR NEGATIVE (Negative); SARS COV2 PCR INHOUSE NEGATIVE (Negative)
== END 2021-04-05 12:02 | disposition home or self-care (01) ==
PROVIDERS: Emergency Provider Emergency Medicine
DX: J40 Bronchitis, not specified as acute or chronic (principal); Z20.822 Contact with and (suspected) exposure to COVID-19; R06.02 Shortness of breath; E11.9 Type 2 diabetes mellitus without complications; E78.5 Hyperlipidemia, unspecified; I10 Essential (primary) hypertension; J45.909 Unspecified asthma, uncomplicated; Z79.899 Other long term (current) drug therapy; Z79.01 Long term (current) use of anticoagulants; Z79.02 Long term (current) use of antithrombotics/antiplatelets
CPT/HCPCS: 0241U; 36415; 80053; 83880; 84484; 85025; 93005; 99283; 99285

== ENCOUNTER 2021-04-12 09:39 | Outpatient (REF) | payer OTHER, SELFPAY ==
[2021-04-12 10:32] LABS: Anion Gap 9 (12-20); Blood Urea Nitrogen 21 mg/dL (9-16); Calcium 9.6 mg/dL (8.4-10.2); Carbon Dioxide 28 mmol/L (22-29); Chloride 106 mmol/L (96-108); Estimated Glomerular Filt Rate 56; Glucose Fasting 115 mg/dL (60-99); Potassium 4.3 mmol/L (3.3-5.1); Sodium 139 mmol/L (135-145)
== END 2021-04-12 09:40 | disposition home or self-care (01) ==
LOC: HO.LAB 09:39
PROVIDERS: PCP Nurse Practitioner Primary Care; Visit Provider Nurse Practitioner Family
DX: R93.1 Abnormal findings on diagnostic imaging of heart and coronary circulation (principal); E11.9 Type 2 diabetes mellitus without complications
CPT/HCPCS: 36415; 80048

== ENCOUNTER → 2021-04-20 13:10 | Outpatient (BNVA) | payer OTHER, SELFPAY | PROVIDERS: PCP Nurse Practitioner Primary Care; Referring Provider Nurse Practitioner Primary Care; Visit Provider Internal Medicine Cardiovascular Disease | DX: I25.10 Atherosclerotic heart disease of native coronary artery without angina pectoris (principal); I48.0 Paroxysmal atrial fibrillation; Z79.01 Long term (current) use of anticoagulants; Z79.899 Other long term (current) drug therapy | CPT/HCPCS: 99212 ==

== ENCOUNTER → 2021-06-23 07:45 | Outpatient (BNVA) | payer OTHER, SELFPAY | PROVIDERS: PCP General Practice; Visit Provider Nurse Practitioner Gerontology | DX: E11.21 Type 2 diabetes mellitus with diabetic nephropathy (principal); E78.5 Hyperlipidemia, unspecified; E55.9 Vitamin D deficiency, unspecified; I10 Essential (primary) hypertension; M85.80 Other specified disorders of bone density and structure, unspecified site; E66.01 Morbid (severe) obesity due to excess calories; Z68.36 Body mass index [BMI] 36.0-36.9, adult; Z79.84 Long term (current) use of oral hypoglycemic drugs | CPT/HCPCS: 82947; 83036; 99212 ==

== ENCOUNTER 2021-07-08 09:13 | Outpatient (REF) | payer OTHER, SELFPAY ==
--- NOTE | ~2021-07-08 | XR_ITS ---
EXAMINATION: XR THORACOLUMBAR SPINE CLINICAL INFORMATION: Back pain. COMPARISON: Radiographs dated 09/21/2015. TECHNIQUE: Frontal, lateral and swimmer's views are submitted. FINDINGS: There is a mild thoracolumbar dextroscoliosis. Vertebral body heights and alignment are well-maintained. The disc spaces are relatively well-maintained. No acute fracture or spondylolisthesis is seen. There is multi-level mild thoracic spondylosis. The posterior elements are intact. The paravertebral soft tissues are unremarkable. There are right upper quadrant surgical clips. XR/XR thoracic spine 2V IMPRESSION: 1. No fracture or spondylolisthesis is seen. 2. The thoracic disc spaces are well-maintained. 3. There is multi-level mild thoracic spondylosis. 4. There is a mild thoracolumbar dextroscoliosis.
--- NOTE | ~2021-07-08 | XR_ITS ---
EXAMINATION: XR SHOULDER, LEFT CLINICAL INFORMATION: Pain. COMPARISON: Radiographs dated 06/23/2020. TECHNIQUE: AP external rotation, Grashey, scapular Y, and axillary views of the left shoulder. FINDINGS: There is bony demineralization. The glenohumeral joint is intact. The acromioclavicular and coracoclavicular intervals are normal. There is moderate osteoarthritic change of the acromioclavicular joint. No fracture or dislocation is seen. No soft tissue calcifications or foreign body seen. There is no left pneumothorax. XR/XR shoulder LT min 2V IMPRESSION: 1. Again, there is moderate osteoarthritic change of the left acromioclavicular joint. 2. No fracture or dislocation is seen.
== END 2021-07-08 09:14 | disposition home or self-care (01) ==
LOC: HO.XRAY 09:13
PROVIDERS: PCP Nurse Practitioner Primary Care; Referring Provider Nurse Practitioner Primary Care; Visit Provider Nurse Practitioner
DX: K31.84 Gastroparesis (principal); K21.9 Gastro-esophageal reflux disease without esophagitis; M54.6 Pain in thoracic spine; M25.512 Pain in left shoulder
CPT/HCPCS: 72070; 73030; 99212

== ENCOUNTER → 2021-07-13 08:39 | Outpatient (BNVA) | payer OTHER, SELFPAY | PROVIDERS: PCP Nurse Practitioner Primary Care; Visit Provider Physician Assistant | DX: M75.01 Adhesive capsulitis of right shoulder (principal); M75.02 Adhesive capsulitis of left shoulder | CPT/HCPCS: 99212 ==

== ENCOUNTER 2021-08-24 14:31 | Outpatient (REF) | payer OTHER, SELFPAY ==
--- NOTE | 2021-08-24 | PFT_ITS ---
FLOWS: FEV1 79% of predicted at 1.89 L. FVC of 75% of predicted at 2.27 L. FEV1 to FVC ratio of 0.83. No bronchodilator response except in small to medium airways. LUNG VOLUMES: Total lung capacity 76% of predicted at 3.76 L. Residual volume 82% of predicted at 1.66 L . Slow vital capacity 72% of predicted at 2.10 L. Expiratory reserve volume 36% of predicted at 0.28 L. Diffusion capacity is moderately decreased, diffusion capacity adjust to being mildly decreased after correction for alveolar ventilation. In comparison to pulmonary function test in April of 2018, FEV1 has been without significant changes; FVC has increased by 0.18 L; slow vital capacity has been without significant changes; expiratory reserve volume has decreased by 0.33 L; diffusion capacity has decreased by 3.63 mL/minute per mmHg. IMPRESSION: Moderate restrictive ventilatory defect with positive bronchodilator response and small to medium airways only. Decreased diffusion capacity with restrictive ventilatory defect suggest underlying pulmonary parenchymal disease. Clinical correlation is advised. MD SURYA Jackson/MODYari / [id number] MTDD
== END 2021-08-24 14:32 | disposition home or self-care (01) ==
LOC: HO.RESP 14:31
PROVIDERS: PCP Nurse Practitioner Primary Care; Visit Provider Nurse Practitioner Primary Care
DX: J44.9 Chronic obstructive pulmonary disease, unspecified (principal); I48.0 Paroxysmal atrial fibrillation
CPT/HCPCS: 94060; 94727; 94729

== ENCOUNTER → 2021-10-21 12:57 | Outpatient (BNVA) | payer OTHER, SELFPAY | PROVIDERS: PCP Nurse Practitioner Primary Care; Referring Provider Nurse Practitioner Primary Care; Visit Provider Nurse Practitioner Family | DX: R07.89 Other chest pain (principal); I25.10 Atherosclerotic heart disease of native coronary artery without angina pectoris; I48.0 Paroxysmal atrial fibrillation; I10 Essential (primary) hypertension; E11.9 Type 2 diabetes mellitus without complications | CPT/HCPCS: 93005; 99212 ==

== ENCOUNTER 2021-12-02 15:06 | Outpatient (REF) | payer OTHER, SELFPAY ==
[2021-12-02 16:13] LABS: Hemoglobin 11.6 g/dl (12.0-16.0); Mean Corpuscular HGB Conc 32.2 g/dl (31.0-35.0); Mean Corpuscular Hemoglobin 32.2 pg (27.0-33.0); Mean Platelet Volume 9.2 fL (9.4-12.3); Platelet Count 249 X10*3/uL (160-400); Red Cell Distribution Width 12.5 % (11.0-16.0); White Blood Count 6.3 X10*3/uL (4.8-10.8)
[2021-12-02 16:24] LABS: Appearance Urine Clear; Color Urine Yellow; Glucose Urine UA Negative (Negative); Leukocyte Esterase Urine Negative (Negative); Nitrite Urine Negative (Negative); PH 5.5 (5.0-9.0); Specific Gravity - Urine >= 1.030 (1.005-1.025); Urine Blood Negative (Negative); Urine Ketones Trace mg/dL (Negative); Urine Protein Trace mg/dL (Neg-Trace)
[2021-12-02 16:32] LABS: Bacteria Urine None Seen (None Seen); RBC Urine 0-2 /HPF (0-2); Squamous Epithelial Cell Urine 0-2 /HPF (0-2); WBC Urine 0-5 /HPF (0-5)
[2021-12-02 16:40] LABS: Hyaline Casts Urine 0-2 /LPF (0-2)
[2021-12-02 16:41] LABS: Albumin Level 4.2 g/dL (3.5-5.0); Anion Gap 15 (12-20); Blood Urea Nitrogen 26 mg/dL (9-16); Calcium 9.1 mg/dL (8.4-10.2); Carbon Dioxide 26 mmol/L (22-29); Chloride 108 mmol/L (96-108); Estimated Glomerular Filt Rate 30; Magnesium 1.6 mg/dL (1.6-2.6); Phosphorus 3.1 mg/dL (2.7-4.5); Potassium 4.7 mmol/L (3.3-5.1); Sodium 144 mmol/L (135-145)
[2021-12-02 17:03] LABS: Vitamin D 25-OH Total 59.1 ng/mL (>30)
[2021-12-02 17:24] LABS: Creatinine Urine 257.54 mg/dL; Microalbum/Creatinine Ratio Ur 54.7 ug/mg cr; Protein/Creatinine Ratio, Ur 0.12 (<0.2); Total Protein Urine Random 30 mg/dL (<12)
[2021-12-03 13:12] LABS: Calcium (PTHI) 9.3 mg/dL (8.6-10.4); PTHI 78 pg/mL (16-77)
== END 2021-12-02 15:07 | disposition home or self-care (01) ==
LOC: HO.LAB 15:06
PROVIDERS: PCP Nurse Practitioner Primary Care; Visit Provider Internal Medicine Nephrology
DX: E11.22 Type 2 diabetes mellitus with diabetic chronic kidney disease (principal); N18.2 Chronic kidney disease, stage 2 (mild); R80.1 Persistent proteinuria, unspecified
CPT/HCPCS: 36415; 80051; 81001; 82040; 82043; 82306; 82310; 82565; 83735; 83970; 84100; 84156; 84520; 85027; 87086

== ENCOUNTER 2021-12-13 10:08 | Emergency (ER) | payer OTHER, SELFPAY ==
--- NOTE | ~2021-12-13 | XR_ITS ---
EXAMINATION: XR CHEST CLINICAL INFORMATION: Difficulty breathing COMPARISON: Previous chest April 2021 TECHNIQUE: 2 views of the chest were obtained. FINDINGS: No significant abnormality is noted involving the heart, lungs, mediastinum, bony thorax or soft tissues. Degenerative changes of the spine. XR/XR chest 2V IMPRESSION: No acute disease in the chest.
--- NOTE | 2021-12-13 10:26 | ECG_ITS ---
Test Reason : chest pain Blood Pressure : / mmHG Vent. Rate : 066 BPM Atrial Rate : 066 BPM P-R Int : 186 ms QRS Dur : 084 ms QT Int : 392 ms P-R-T Axes : 031 013 048 degrees QTc Int : 410 ms Normal sinus rhythm Normal ECG When compared with ECG of 05-APR-2021 10:20, No significant change was found Referred By: Generic ED Physician Electronically Signed By:PHIL SANTIZO
[2021-12-13 10:43] VITALS: BP 150/53; PULSE 74; RESP 20; TEMP 36.2; O2SAT 96; BMI 35.3
[2021-12-13 11:24] LABS: MANUAL DIFF FLAG NO
[2021-12-13 11:29] LABS: Basophils Percent Auto 0.3 % (0-2); Eosinophils Absolute Auto 0.1 X10*3/uL (0.0-0.4); Eosinophils Percent Auto 2.1 % (0-4); Hematocrit 35.8 % (37.0-47.0); Hemoglobin 11.7 g/dl (12.0-16.0); Imm Gran Abs Auto 0.01 X10*3/uL (0.00-0.03); Imm Gran Pct Auto 0.2 % (0.0-0.4); Lymphocytes Absolute Auto 1.7 X10*3/uL (1.2-4.9); Lymphocytes Percent Auto 26.2 % (20-40); Mean Corpuscular HGB Conc 32.7 g/dl (31.0-35.0); Mean Corpuscular Hemoglobin 32.1 pg (27.0-33.0); Mean Corpuscular Volume 98.1 fL (80.0-98.0); Mean Platelet Volume 8.5 fL (9.4-12.3); Monocytes Absolute Auto 0.4 X10*3/uL (0.1-1.2); Monocytes Percent Auto 6.8 % (2-11); Neutrophils Absolute Auto 4.1 x10*3/uL (2.0-8.3); Neutrophils Percent Auto 64.4 % (45-73); Platelet Count 200 X10*3/uL (160-400); Red Blood Count 3.65 X10*6/uL (4.20-5.50); Red Cell Distribution Width 12.7 % (11.0-16.0); White Blood Count 6.3 X10*3/uL (4.8-10.8)
[2021-12-13 11:45] LABS: COVID-19 Test Negative (Negative); IDNOW Serial# 16C4AD1C
[2021-12-13 11:49] LABS: Anion Gap 14 (12-20); Blood Urea Nitrogen 24 mg/dL (9-16); Calcium 8.8 mg/dL (8.4-10.2); Carbon Dioxide 26 mmol/L (22-29); Chloride 105 mmol/L (96-108); Creatinine Clr Calc Pharmacy 52.3; Estimated Glomerular Filt Rate 45; Glucose Random 163 mg/dL (60-115); Sodium 141 mmol/L (135-145)
[2021-12-13 14:40] VITALS: BP 154/63; PULSE 68; RESP 18; O2SAT 98
--- NOTE | 2021-12-13 14:59 | ED.SOB ---
HPI - SOB/Dyspnea General Chief Complaint: Dyspnea Stated Complaint: chest pain lung pain Time Seen by Provider: 12/13/21 14:50 Source: patient and resident care aid Mode of arrival: ambulatory Limitations: language barrier History of Present Illness HPI Narrative: The 1-year-old female with a history of AFib on Xarelto, asthma, bronchitis, diabetes and diabetic neuropathy, high cholesterol, GERD, hypertension, obesity who presents with reports of chest and back discomfort since yesterday which is worsened with deep breathing and coughing. No leg swelling or leg pain. No fevers, chills, body aches. Patient reports nonproductive cough. She tells me she has been compliant with her Xarelto. She denies any recent travel or sick contact. She has received 2 COVID vaccination Related Data Home Medications Medication Instructions Recorded Confirmed loratadine 10 mg tablet 10 mg PO DAILY PRN Allergy Symptoms 02/26/20 10/21/21 sertraline 100 mg tablet 200 mg PO DAILY PRN Anxiety 02/26/20 10/21/21 fluticasone propionate 50 1 spray intranasal DAILY 12/20/20 10/21/21 mcg/actuation nasal spray,suspension albuterol sulfate 90 mcg/actuation 2 puff PO Q4-6H PRN Shortness Of 12/28/20 10/21/21 aerosol inhaler (Ventolin HFA) Breath lisinopril 40 mg tablet 40 mg PO DAILY 04/20/21 10/21/21 blood sugar diagnostic (FreeStyle #10 ea 06/23/21 10/21/21 Lite Strips) Previous Rx's Medication Instructions Recorded mirabegron 25 mg tablet,extended 25 mg PO DAILY 90 days #90 tabs 07/03/20 release 24 hr cholecalciferol (vitamin D3) 25 25 mcg PO DAILY #30 caps 04/04/21 mcg (1,000 unit) capsule calcium carbonate 500 mg calcium 500 mg PO BID 30 days #60 tabs 06/23/21 (1,250 mg) chewable tablet (Calcium 500) ezetimibe 10 mg tablet 10 mg PO DAILY #30 tabs 06/23/21 lancets 28 gauge (FreeStyle #100 ea 06/23/21 Lancets) rosuvastatin 40 mg tablet 40 mg PO DAILY 30 days #90 tabs 08/05/21 apixaban 5 mg tablet (Eliquis) 5 mg PO BID #60 tabs 08/26/21 metformin 500 mg tablet,extended 1,000 mg PO BID #360 tabs 09/10/21 release 24 hr pioglitazone 15 mg tablet 15 mg PO BID #180 tabs 09/23/21 diltiazem HCl 120 mg 120 mg PO DAILY #90 caps 11/22/21 capsule,extended release 24 hr acetaminophen 325 mg tablet 650 mg PO Q4H PRN fever or pain 12/13/21 (Tylenol) #60 tabs benzonatate 200 mg capsule 200 mg PO TID PRN cough #30 caps 12/13/21 doxycycline monohydrate 100 mg 100 mg PO BID #14 caps 12/13/21 capsule Allergies Allergy/AdvReac Type Severity Reaction Status Date / Time ibuprofen [IBUPROFEN] Allergy Severe SICK TO Verified 10/21/21 13:05 MY STOMACH ciprofloxacin [From CIPRO] Allergy Intermediate SICK Verified 10/21/21 13:05 levofloxacin [From LEVAQUIN] Allergy Intermediate SICK , Verified 10/21/21 13:05 nausea, dizziness x days flu vaccine Allergy Intermediate Swelling Uncoded 10/21/21 13:05 Review of Systems Review of Systems: Yes all other systems are reviewed and are negative Constitutional: Constitutional: Reports no additional constitutional complaints, Denies body ache(s), Denies chills, Denies fever(s), Denies headache(s) and Denies weakness Eyes: Eyes: Reports no additional eye complaints and Denies change in vision ENT: Reports system reviewed and no additional complaints, except as documented, Denies dizziness, Denies headache(s), Denies nasal congestion, Denies nasal discharge and Denies neck pain Cardiovascular: Cardiovascular: Reports no additional cardiovascular complaints, Reports chest pain, Denies leg edema and Denies dyspnea Respiratory: Respiratory: Reports no additional respiratory complaints, Reports cough and Denies dyspnea Gastrointestinal: Gastrointestinal: Reports no additional gastrointestinal complaints, Denies abdominal pain, Denies diarrhea, Denies nausea and Denies vomiting Genitourinary: Genitourinary: Reports no additional female genitourinary complaints and Denies urinary incontinence Musculoskeletal: Musculoskeletal: Reports no additional musculoskeletal complaints, Denies back pain, Denies arthralgias, Denies joint swelling, Denies neck pain, Denies numbness and Denies tingling Integumentary/Breasts: Skin/Breast: Reports system reviewed and no additional complaints, except as docu and Denies rash Neurologic: Reports system reviewed and no additional complaints, except as documented, Denies Abnormal speech present, Denies dizziness, Denies headache(s), Denies numbness, Denies tingling and Denies weakness PMFSH Past Medical History Attestation statement: The following information was validated with the patient. Source: old records reviewed and nursing notes reviewed Medical History Asthma Atrial fibrillation Bronchitis CAD (coronary artery disease) Diabetes Diabetic 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 Dyslipidemia GERD (gastroesophageal reflux disease) Hypertension Obesity (BMI 30-39.9) Obesity due to excess calories Osteopenia Paroxysmal atrial fibrillation Type 2 diabetes mellitus with hyperglycemia Vitamin D deficiency Surgical History History of esophagogastroduodenoscopy (EGD) Hx of cataract surgery Hx of colonoscopy Hx of foot surgery Family History Family History Father Heart failure Diabetes mellitus Mother Cholangiocarcinoma Diabetes mellitus Family history of hypertension Family history of heart attack Brother Lung cancer Family/Other Breast cancer Sister Social History Social History Household Members: Children Housing: Apartment Do you presently have visiting nurse or other home services: Yes Alcohol intake: unknown Patient Tobacco Use Status: Former Tobacco user Cigarettes Per Day: 12 Years Smoked: 45 Advance Directives: Yes Advance Directives on File: Yes Advance Directives Date on File: 12/19/20 service: No Current occupational status: unemployed Physical Exam Vital Signs: Vital Signs: Last Vital Signs Temp 97.1 F 12/13/21 10:43 Pulse 68 12/13/21 14:40 Resp 18 12/13/21 14:40 BP 154/63 H 12/13/21 14:40 Pulse Ox 98 12/13/21 14:40 O2 Del Method 12/13/21 10:43 BMI result Body Mass Index 35.3 Const: General: cooperative, healthy appearing, comfortable and no acute distress Orientation/consciousness: patient oriented x3 Limitations: no limitations HEENT: Head: Yes normal to inspection Ears: hearing grossly normal bilaterally and TM's normal bilaterally General nose exam: Normal external nose present Face and sinus: Yes normal facial exam Mouth: Normal oral and palatal mucosa present Throat: Yes posterior oropharynx normal, Yes tonsils normal and Yes uvula midline Eyes: General: appearance normal, both eyes and all related structures Pupils: Equal, round and reactive pupils present Neck: Neck: Yes normal visual inspection, Yes full ROM, Yes no lymphadenopathy and Yes no meningeal signs Chest: Chest palpation & inspection: normal inspection of the chest Resp: Effort & Inspection: normal respiratory effort Auscultation: clear to auscultation bilaterally Cardio: Rate: regular rate Rhythm: regular rhythm Peripheral pulses: Peripheral pulses 2+ throughout GI: Inspection: Yes normal to inspection Palpation (GI): Soft to palpation and nontender Auscultation: normal bowel sounds Back/Spine/Pelvis: Thoracic/Lumbar Spine: thoracic and lumbar spine normal to inspection Skin: General skin exam: no rashes or lesions noted Neuro: General: patient oriented x3, no meningeal signs, no focal motor deficits and normal sensation to monofilament Cranial nerves: Yes Equal, round and reactive pupils present Cognition (Neuro): normal cognition Speech: No Abnormal speech present Gait exam (Neuro): Normal gait present Motor exam (neuro): 5/5 motor strength present throughout Extrem: General: Yes normal to inspection, Yes no pedal edema and Yes no calf tenderness Course Course Course Narrative: Labs are unremarkable. Chest x-ray shows no acute finding. COVID screen is negative. Low concern for ACS with negative troponin, normal EKG with symptoms for 48 hours with a hpi which is atypical nature Low concern for PE with patient being anticoagulated on Eliquis, negative D-dimer, no clinical findings concerning for DVT, no hypoxia or tachypnea Likely bronchitis. Patient be treated with course of antibiotics, cough suppressant, Tylenol p.r.n. MDM - SOB/Dyspnea MDM Narrative Medical decision making narrative: 61 year old female who presents with 2 days of chest discomfort and upper back pain with coughing and deep breathing with dry nonproductive cough and no reports of fevers, chills, body aches, lower extremity swelling or pain. Will need labs, chest x-ray, EKG, COVID screen -consider PE, ACS, pneumonia, bronchitis Medical Records Attestation: I reviewed the patient's medical records. Lab Data Attestation: I reviewed the patient's lab results. Result diagrams: 12/13/21 11:20 12/13/21 11:20 Labs: Lab Results 12/13/21 12/13/21 12/13/21 Range/Units 11:20 11:20 11:20 WBC 6.3 (4.8-10.8) X10*3/uL RBC 3.65 L (4.20-5.50) X10*6/uL Hgb 11.7 L (12.0-16.0) g/dl Hct 35.8 L (37.0-47.0) % MCV 98.1 H (80.0-98.0) fL MCH 32.1 (27.0-33.0) pg MCHC 32.7 (31.0-35.0) g/dl RDW 12.7 (11.0-16.0) % Plt Count 200 (160-400) X10*3/uL MPV 8.5 L (9.4-12.3) fL Immature Gran % (Auto) 0.2 (0.0-0.4) % Neut % (Auto) 64.4 (45-73) % Lymph % (Auto) 26.2 (20-40) % Duchesne % (Auto) 6.8 (2-11) % Eos % (Auto) 2.1 (0-4) % Baso % (Auto) 0.3 (0-2) % Lymph # (Auto) 1.7 (1.2-4.9) X10*3/uL Duc[place]ne # (Auto) 0.4 (0.1-1.2) X10*3/uL Eos # (Auto) 0.1 (0.0-0.4) X10*3/uL Baso # (Auto) 0.0 (0.0-0.2) X10*3/uL Abs Immat Gran (auto) 0.01 (0.00-0.03) X10*3/uL Absolute Neuts (auto) 4.1 (2.0-8.3) x10*3/uL Absolute Nucleated RBC 0.000 (0.0-0.012) X10*3/uL Nucleated RBC % (auto) 0.0 (0.0-0.2) /100WBC PT (10.0-13.1) SEC INR (0.9-1.1) D-Dimer High Sensitivty NG/ML Sodium 141 (135-145) mmol/L Potassium 4.0 (3.3-5.1) mmol/L Chloride 105 (96-108) mmol/L Carbon Dioxide 26 (22-29) mmol/L Anion Gap 14 (12-20) BUN 24 H (9-16) mg/dL Creatinine 1.22 (0.5-1.4) mg/dL Estim Creat Clear Calc 52.3 Estimated GFR 45 Random Glucose 163 H (60-115) mg/dL Calcium 8.8 (8.4-10.2) mg/dL Total Bilirubin (0.0-1.0) mg/dL Direct Bilirubin (0.0-0.5) mg/dL AST (5-31) U/L ALT (0-31) U/L Alkaline Phosphatase (39-117) U/L Troponin I High Sens (<3.5-17.0) ng/L Total Protein (6.5-8.0) g/dL Albumin (3.5-5.0) g/dL COVID-19 ([facility]) Negative (Negative) COVID-19 Clin Com See Note 12/13/21 12/13/21 12/13/21 Range/Units 15:13 15:13 15:13 WBC (4.8-10.8) X10*3/uL RBC (4.20-5.50) X10*6/uL Hgb (12.0-16.0) g/dl Hct (37.0-47.0) % MCV (80.0-98.0) fL MCH (27.0-33.0) pg MCHC (31.0-35.0) g/dl RDW (11.0-16.0) % Plt Count (160-400) X10*3/uL MPV (9.4-12.3) fL Immature Gran % (Auto) (0.0-0.4) % Neut % (Auto) (45-73) % Lymph % (Auto) (20-40) % Duchesne % (Auto) (2-11) % Eos % (Auto) (0-4) % Baso % (Auto) (0-2) % Lymph # (Auto) (1.2-4.9) X10*3/uL Duc[place]ne # (Auto) (0.1-1.2) X10*3/uL Eos # (Auto) (0.0-0.4) X10*3/uL Baso # (Auto) (0.0-0.2) X10*3/uL Abs Immat Gran (auto) (0.00-0.03) X10*3/uL Absolute Neuts (auto) (2.0-8.3) x10*3/uL Absolute Nucleated RBC (0.0-0.012) X10*3/uL Nucleated RBC % (auto) (0.0-0.2) /100WBC PT 13.1 (10.0-13.1) SEC INR 1.1 (0.9-1.1) D-Dimer High Sensitivty NG/ML Sodium (135-145) mmol/L Potassium (3.3-5.1) mmol/L Chloride (96-108) mmol/L Carbon Dioxide (22-29) mmol/L Anion Gap (12-20) BUN (9-16) mg/dL Creatinine (0.5-1.4) mg/dL Estim Creat Clear Calc Estimated GFR Random Glucose (60-115) mg/dL Calcium (8.4-10.2) mg/dL Total Bilirubin 0.3 (0.0-1.0) mg/dL Direct Bilirubin < 0.2 (0.0-0.5) mg/dL AST 23 (5-31) U/L ALT 22 (0-31) U/L Alkaline Phosphatase 58 (39-117) U/L Troponin I High Sens < 3.5 (<3.5-17.0) ng/L Total Protein 6.9 (6.5-8.0) g/dL Albumin 4.0 (3.5-5.0) g/dL COVID-19 ([facility]) (Negative) COVID-19 Clin Com 12/13/21 Range/Units 15:13 WBC (4.8-10.8) X10*3/uL RBC (4.20-5.50) X10*6/uL Hgb (12.0-16.0) g/dl Hct (37.0-47.0) % MCV (80.0-98.0) fL MCH (27.0-33.0) pg MCHC (31.0-35.0) g/dl RDW (11.0-16.0) % Plt Count (160-400) X10*3/uL MPV (9.4-12.3) fL Immature Gran % (Auto) (0.0-0.4) % Neut % (Auto) (45-73) % Lymph % (Auto) (20-40) % Duchesne % (Auto) (2-11) % Eos % (Auto) (0-4) % Baso % (Auto) (0-2) % Lymph # (Auto) (1.2-4.9) X10*3/uL Duc[place]ne # (Auto) (0.1-1.2) X10*3/uL Eos # (Auto) (0.0-0.4) X10*3/uL Baso # (Auto) (0.0-0.2) X10*3/uL Abs Immat Gran (auto) (0.00-0.03) X10*3/uL Absolute Neuts (auto) (2.0-8.3) x10*3/uL Absolute Nucleated RBC (0.0-0.012) X10*3/uL Nucleated RBC % (auto) (0.0-0.2) /100WBC PT (10.0-13.1) SEC INR (0.9-1.1) D-Dimer High Sensitivty < 150 NG/ML Sodium (135-145) mmol/L Potassium (3.3-5.1) mmol/L Chloride (96-108) mmol/L Carbon Dioxide (22-29) mmol/L Anion Gap (12-20) BUN (9-16) mg/dL Creatinine (0.5-1.4) mg/dL Estim Creat Clear Calc Estimated GFR Random Glucose (60-115) mg/dL Calcium (8.4-10.2) mg/dL Total Bilirubin (0.0-1.0) mg/dL Direct Bilirubin (0.0-0.5) mg/dL AST (5-31) U/L ALT (0-31) U/L Alkaline Phosphatase (39-117) U/L Troponin I High Sens (<3.5-17.0) ng/L Total Protein (6.5-8.0) g/dL Albumin (3.5-5.0) g/dL COVID-19 ([facility]) (Negative) COVID-19 Clin Com Imaging Data Chest x-ray: Attestation: I personally reviewed and interpreted this imaging study as follows: Radiologist's impression: EXAMINATION: XR CHEST CLINICAL INFORMATION: Difficulty breathing COMPARISON: Previous chest April 2021 TECHNIQUE: 2 views of the chest were obtained. FINDINGS: No significant abnormality is noted involving the heart, lungs, mediastinum, bony thorax or soft tissues. Degenerative changes of the spine. XR/XR chest 2V IMPRESSION: No acute disease in the chest. ECG Data Attestation: I personally reviewed and interpreted this ECG as follows: ECG interpretation date: 12/13/21 ECG interpretation time: 11:11 Interpretation: Normal sinus rhythm with a rate of 66, normal TX, normal QRS, normal QT Discharge Plan Discharge Clinical Impression: Bronchitis, Chest wall muscle strain Patient Disposition: Home, Self-Care Instructions: Acute Bronchitis (ED), Chest Wall Pain (ED) Additional Instructions: Your blood work, EKG, chest x-ray and COVID screen are all very reassuring Take Tylenol for pain or fever Increase fluids at home Prescriptions: New doxycycline monohydrate 100 mg capsule 100 mg PO BID Qty: 14 0RF benzonatate 200 mg capsule 200 mg PO TID PRN (Reason: cough) Qty: 30 0RF acetaminophen [Tylenol] 325 mg tablet 650 mg PO Q4H PRN (Reason: fever or pain) Qty: 60 0RF No Action mirabegron 25 mg tablet extended release 24 hr 25 mg PO DAILY 90 Days Qty: 90 2RF cholecalciferol (vitamin D3) 25 mcg (1,000 unit) capsule 25 mcg PO DAILY Qty: 30 11RF rosuvastatin 40 mg tablet 40 mg PO DAILY 30 Days Qty: 90 1RF Eliquis 5 mg tablet 5 mg PO BID Qty: 60 5RF metformin 500 mg tablet extended release 24 hr 1,000 mg PO BID Qty: 360 1RF pioglitazone 15 mg tablet 15 mg PO BID Qty: 180 2RF diltiazem HCl 120 mg capsule,extended release 24hr 120 mg PO DAILY Qty: 90 3RF fluticasone propionate 50 mcg/actuation spray,suspension 1 spray intranasal DAILY albuterol sulfate [Ventolin HFA] 90 mcg/actuation HFA aerosol inhaler 2 puff PO Q4-6H PRN (Reason: Shortness Of Breath) lisinopril 40 mg tablet 40 mg PO DAILY (DME) FreeStyle Lite Strips Strip See Rx Instructions Not Applicable DAILY Qty: 10 Rx Instructions: As directed calcium carbonate [Calcium 500] 500 mg calcium (1,250 mg) tablet,chewable 500 mg PO BID 30 Days Qty: 60 11RF (DME) lancets [FreeStyle Lancets] 28 gauge misc See Rx Instructions .Route Qty: 100 3RF Rx Instructions: As directed 1x/daily ezetimibe 10 mg tablet 10 mg PO DAILY Qty: 30 11RF loratadine 10 mg tablet 10 mg PO DAILY PRN (Reason: Allergy Symptoms) sertraline 100 mg tablet 200 mg PO DAILY PRN (Reason: Anxiety) Referrals: Areli Elam, [facility] [Primary Care Provider] - 1 week
[2021-12-13] MEDS: Acetaminophen 325 MG TABLET 975 MG PO (15:27)
[2021-12-13] MEDS: 0.9 % Sodium Chloride 500 ML 999 ML IV (15:27)
[2021-12-13 15:33] LABS: INTERNATIONAL NORM RATIO 1.1 (0.9-1.1); Prothrombin Time 13.1 SEC (10.0-13.1)
[2021-12-13 15:36] LABS: Alanine Aminotransferase 22 U/L (0-31); Alkaline Phosphatase 58 U/L (39-117); Aspartate Amino Transferase 23 U/L (5-31); Bilirubin Direct < 0.2 mg/dL (0.0-0.5); Bilirubin Total 0.3 mg/dL (0.0-1.0); Total Protein 6.9 g/dL (6.5-8.0)
[2021-12-13 15:42] LABS: Troponin-I High Sensitivity < 3.5 ng/L (<3.5-17.0)
[2021-12-13 16:10] LABS: D Dimer High Sensitivity < 150 NG/ML
== END 2021-12-13 16:37 | disposition home or self-care (01) ==
PROVIDERS: Nurse Practitioner Family; Emergency Provider Emergency Medicine; PCP Nurse Practitioner Primary Care
DX: J40 Bronchitis, not specified as acute or chronic (principal); S29.011A Strain of muscle and tendon of front wall of thorax, initial encounter; X58.XXXA Exposure to other specified factors, initial encounter; Z20.822 Contact with and (suspected) exposure to COVID-19; I48.0 Paroxysmal atrial fibrillation; E11.9 Type 2 diabetes mellitus without complications; I10 Essential (primary) hypertension; E78.5 Hyperlipidemia, unspecified; E66.9 Obesity, unspecified; Z68.35 Body mass index [BMI] 35.0-35.9, adult; Z79.02 Long term (current) use of antithrombotics/antiplatelets; Z79.01 Long term (current) use of anticoagulants; Z79.899 Other long term (current) drug therapy; Z79.84 Long term (current) use of oral hypoglycemic drugs; Y93.9 Activity, unspecified; Y92.9 Unspecified place or not applicable; Y99.9 Unspecified external cause status; Z87.891 Personal history of nicotine dependence
CPT/HCPCS: 36415; 71046; 80048; 80076; 84484; 85025; 85379; 85610; 87635; 93005; 99283; 99284

== ENCOUNTER 2021-12-24 09:05 | Outpatient (REF) | payer OTHER, SELFPAY ==
--- NOTE | ~2021-12-24 | MR_ITS ---
EXAMINATION: MRI SHOULDER WITHOUT CONTRAST, LEFT CLINICAL INFORMATION: Left shoulder pain and decreased range of motion. COMPARISON: Left shoulder radiographs dated 07/08/2021. TECHNIQUE: Multisequence MR imaging of the left shoulder was obtained without contrast on a high-field strength scanner. FINDINGS: ROTATOR CUFF: Moderate supraspinatus tendinosis with anterior bursal surface partial tearing measuring 1.5 x 1.0 cm (AP by ML). No muscle atrophy or fatty infiltration. BICEPS: Mild increased T2 signal within the proximal biceps tendon consistent with mild tendinosis. CORACOACROMIAL ARCH: The undersurface of the acromion is curved with subacromial spurs. Acromioclavicular marginal osteophytes and small joint effusion. LABRUM/CAPSULE: No displaced labral tear. Mild thickening and edema of the anterosuperior joint capsule. No capsular tear. GLENOHUMERAL JOINT/MARROW: Degenerative cystic change within the posterior aspect of the greater tuberosity. Intact articular cartilage. No acute osseous injury. MR/MR shoulder LT wo con IMPRESSION: 1. Moderate supraspinatus tendinosis with anterior bursal surface partial tearing measuring 1.5 x 1.0 cm. 2. Mild proximal long head biceps tendinosis. 3. Moderate acromioclavicular osteoarthritis with small subacromial spurs. 4. Mild thickening and edema of the anterosuperior joint capsule. Findings could be seen in very mild adhesive capsulitis.
== END 2021-12-24 09:06 | disposition home or self-care (01) ==
LOC: HO.MRI 09:05
PROVIDERS: Visit Provider Nurse Practitioner Primary Care
DX: M25.512 Pain in left shoulder (principal)
CPT/HCPCS: 73221

== ENCOUNTER → 2021-12-30 13:53 | Outpatient (BNVA) | payer OTHER, SELFPAY | PROVIDERS: PCP Nurse Practitioner Primary Care; Referring Provider Nurse Practitioner Primary Care; Visit Provider Internal Medicine Cardiovascular Disease | DX: I48.0 Paroxysmal atrial fibrillation (principal); I25.10 Atherosclerotic heart disease of native coronary artery without angina pectoris | CPT/HCPCS: 99212 ==

== ENCOUNTER → 2022-01-04 07:16 | Outpatient (REF) | payer OTHER, SELFPAY ==
--- NOTE | 2022-01-04 07:19 | HM_ITS ---
Conclusion: 1. Patient was monitored for total period of 3 days and 12 hours 2. Baseline was normal sinus rhythm with average heart rate of 73 beats per minute 3. No significant pauses or bradycardia noted 4. Very rare ectopy noted 5. Patient reported multiple events correlated with sinus rhythm MTDD
== END ==
LOC: HO.CARD 07:16
PROVIDERS: Visit Provider Internal Medicine Cardiovascular Disease
DX: I48.0 Paroxysmal atrial fibrillation (principal)
CPT/HCPCS: 93242

== ENCOUNTER 2022-01-08 08:33 | Emergency (ER) | payer OTHER, SELFPAY ==
[2022-01-08 08:36] VITALS: BP 157/79; PULSE 81; RESP 17; TEMP 36.4; O2SAT 95; BMI 37.5
--- NOTE | 2022-01-08 08:47 | PC.NURSE ---
LUNGS - CTA. SPEAKS IN FULL SENTENCES.
[2022-01-08 08:55] LABS: MANUAL DIFF FLAG NO
[2022-01-08 08:59] LABS: Basophils Percent Auto 0.5 % (0-2); Eosinophils Absolute Auto 0.2 X10*3/uL (0.0-0.4); Eosinophils Percent Auto 2.9 % (0-4); Hematocrit 36.4 % (37.0-47.0); Imm Gran Abs Auto 0.03 X10*3/uL (0.00-0.03); Imm Gran Pct Auto 0.5 % (0.0-0.4); Lymphocytes Absolute Auto 1.8 X10*3/uL (1.2-4.9); Lymphocytes Percent Auto 29.6 % (20-40); Mean Corpuscular Hemoglobin 32.3 pg (27.0-33.0); Mean Corpuscular Volume 98.1 fL (80.0-98.0); Mean Platelet Volume 8.3 fL (9.4-12.3); Monocytes Absolute Auto 0.4 X10*3/uL (0.1-1.2); Monocytes Percent Auto 6.8 % (2-11); Neutrophils Absolute Auto 3.5 x10*3/uL (2.0-8.3); Neutrophils Percent Auto 59.7 % (45-73); Platelet Count 209 X10*3/uL (160-400); Red Blood Count 3.71 X10*6/uL (4.20-5.50); Red Cell Distribution Width 12.6 % (11.0-16.0); White Blood Count 5.9 X10*3/uL (4.8-10.8)
[2022-01-08 09:03] LABS: INTERNATIONAL NORM RATIO 1.1 (0.9-1.1); Prothrombin Time 13.2 SEC (10.0-13.1)
[2022-01-08 09:05] LABS: Partial Thromboplastin Time 38.6 SEC (26.0-36.4)
[2022-01-08 09:14] LABS: Anion Gap 15 (12-20); Blood Urea Nitrogen 24 mg/dL (9-16); Calcium 9.4 mg/dL (8.4-10.2); Carbon Dioxide 25 mmol/L (22-29); Chloride 104 mmol/L (96-108); Estimated Glomerular Filt Rate 54; Glucose Random 257 mg/dL (60-115); Potassium 4.6 mmol/L (3.3-5.1); Sodium 139 mmol/L (135-145)
[2022-01-08 09:15] LABS: COVID-19 Test Negative (Negative); IDNOW Serial# 16C4AD1C; Troponin-I High Sensitivity < 3.5 ng/L (<3.5-17.0)
[2022-01-08 09:25] VITALS: BP 147/54; PULSE 74; O2SAT 95
--- NOTE | 2022-01-08 09:32 | ED.GENADULT ---
HPI - General Adult General Chief complaint: General Medical Stated complaint: asthma attack, nose bleed Time Seen by Provider: 01/08/22 09:22 Source: patient and family Mode of arrival: ambulatory Limitations: no limitations History of Present Illness HPI narrative: 61-year-old female history of asthma, paroxysmal AFib patient is on Eliquis 5 mg b.i.d., CAD, DM with nephropathy, HTN. Came in today for evaluation of multiple symptoms. Patient been feeling sick with shortness of breath and dry coughing with wheezing, no fever, no chills. Patient also been having palpitation patient was evaluated by Dr. Reid last week for palpitation, patient had Holter monitor for a week, patient is on Eliquis and been complaining of episodes of right nostril bleed that. With nasal pressure, no new CP, has episode of lightheadedness with no diaphoresis. Related Data Home Medications Medication Instructions Recorded Confirmed loratadine 10 mg tablet 10 mg PO DAILY PRN Allergy Symptoms 02/26/20 12/30/21 sertraline 100 mg tablet 200 mg PO DAILY PRN Anxiety 02/26/20 12/30/21 fluticasone propionate 50 1 spray intranasal DAILY 12/20/20 12/30/21 mcg/actuation nasal spray,suspension albuterol sulfate 90 mcg/actuation 2 puff PO Q4-6H PRN Shortness Of 12/28/20 12/30/21 aerosol inhaler (Ventolin HFA) Breath lisinopril 40 mg tablet 40 mg PO DAILY 04/20/21 12/30/21 blood sugar diagnostic (FreeStyle #10 ea 06/23/21 10/21/21 Lite Strips) mirabegron 25 mg tablet,extended 25 mg PO DAILY 12/30/21 12/30/21 release 24 hr Previous Rx's Medication Instructions Recorded cholecalciferol (vitamin D3) 25 25 mcg PO DAILY #30 caps 04/04/21 mcg (1,000 unit) capsule calcium carbonate 500 mg calcium 500 mg PO BID 30 days #60 tabs 06/23/21 (1,250 mg) chewable tablet (Calcium 500) ezetimibe 10 mg tablet 10 mg PO DAILY #30 tabs 06/23/21 lancets 28 gauge (FreeStyle #100 ea 06/23/21 Lancets) apixaban 5 mg tablet (Eliquis) 5 mg PO BID #60 tabs 08/26/21 pioglitazone 15 mg tablet 15 mg PO BID #180 tabs 09/23/21 acetaminophen 325 mg tablet 650 mg PO Q4H PRN fever or pain 12/13/21 (Tylenol) #60 tabs benzonatate 200 mg capsule 200 mg PO TID PRN cough #30 caps 12/13/21 metformin 500 mg tablet,extended 1,000 mg PO BID #360 tabs 12/14/21 release 24 hr rosuvastatin 40 mg tablet 40 mg PO DAILY #90 tabs 12/14/21 diltiazem HCl 180 mg 180 mg PO DAILY #30 caps 12/30/21 capsule,extended release 24 hr (Cardizem CD) albuterol sulfate 2.5 mg/3 mL 2.5 mg (3 mL) inhalation QID PRN 01/08/22 (0.083 %) solution for nebulization shortness of breath or wheezing #75 mL amoxicillin 875 mg-potassium 1 tab PO BID #14 tabs 01/08/22 clavulanate 125 mg tablet prednisone 20 mg tablet 20 mg PO BID #10 tabs 01/08/22 Allergies Allergy/AdvReac Type Severity Reaction Status Date / Time ibuprofen [IBUPROFEN] Allergy Severe SICK TO Verified 10/21/21 13:05 MY STOMACH ciprofloxacin [From CIPRO] Allergy Intermediate SICK Verified 10/21/21 13:05 levofloxacin [From LEVAQUIN] Allergy Intermediate SICK , Verified 10/21/21 13:05 nausea, dizziness x days flu vaccine Allergy Intermediate Swelling Uncoded 10/21/21 13:05 Review of Systems Review of Systems: All other systems are reviewed and are negative Constitutional: Reports as per HPI and Reports no additional constitutional complaints Eyes: Reports as per HPI and Reports no additional eye complaints Reports system reviewed and no additional complaints, except as documented Cardiovascular: Reports as per HPI and Reports no additional cardiovascular complaints Respiratory: Reports as per HPI and Reports no additional respiratory complaints Gastrointestinal: Reports as per HPI and Reports no additional gastrointestinal complaints Genitourinary: Reports no additional female genitourinary complaints Musculoskeletal: Reports no additional musculoskeletal complaints Skin/Breast: Reports system reviewed and no additional complaints, except as docu Psychiatric: Reports no additional psychiatric complaints Endocrine: Reports no additional endocrine complaints Hematologic/Lymphatic: Reports no additional hematologic/lymphatic complaints Allergic/Immunologic: Reports no additional allergic/immunologic complaints Reports system reviewed and no additional complaints, except as documented and Reports Abnormal speech present [facility] Past Medical History Medical History Asthma Atrial fibrillation Bronchitis CAD (coronary artery disease) Diabetes Diabetic 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 Dyslipidemia GERD (gastroesophageal reflux disease) Hypertension Obesity (BMI 30-39.9) Obesity due to excess calories Osteopenia Paroxysmal atrial fibrillation Type 2 diabetes mellitus with hyperglycemia Vitamin D deficiency Surgical History History of esophagogastroduodenoscopy (EGD) Hx of cataract surgery Hx of colonoscopy Hx of foot surgery Family History Family History Father Heart failure Diabetes mellitus Mother Cholangiocarcinoma Diabetes mellitus Family history of hypertension Family history of heart attack Brother Lung cancer Family/Other Breast cancer Sister Social History Social History Household Members: Children Housing: Apartment Do you presently have visiting nurse or other home services: Yes Alcohol intake: unknown Patient Tobacco Use Status: Former Tobacco user Cigarettes Per Day: 12 Years Smoked: 45 Advance Directives: No Advance Directives Information Provided: Yes Advance Directives Date on File: 12/19/20 service: No Current occupational status: unemployed Physical Exam ED Vital Signs: Vital Signs - 24 hr 01/08/22 08:36 01/08/22 09:25 01/08/22 11:23 Temperature 97.6 F Pulse Rate 81 74 67 Respiratory Rate 17 18 Blood Pressure 157/79 H 147/54 H Pulse Oximetry 95 95 Oxygen Delivery Method Room Air Room Air 01/08/22 12:17 Temperature Pulse Rate 89 Respiratory Rate 16 Blood Pressure 139/54 L Pulse Oximetry 94 Oxygen Delivery Method Room Air BMI result Body Mass Index 37.5 Vital signs have been reviewed as appeared to be correct. Blood pressure normal. Heart rate normal. Respiration rate normal. Temperature normal. Oxygen saturation normal. Appearance: Alert. Oriented X3. No acute distress. Head: Normal external exam. Normocephalic. Atraumatic. No [place] signs noted. No raccoon eyes noted Eyes: PERRLA. EOMI. Conjunctiva and sclera normal. Eyelids normal. ENT: TM's Normal. Pharynx normal. Uvula midline. Moist mucous membranes. No trismus noted. No drooling noted. No active nostril bleed. Neck: Normal inspection. Neck supple. FROM. No adenopathy. Thyroid Normal. No meningeal signs. No neck mass noted. CVS: Normal heart rate and rhythm. Heart sound normal. No murmurs noted. Pulses normal throughout. Respiratory: No respiratory distress. Painless inspiration. Breath sounds normal. Mild diffuse expiratory wheezing with prolonged expiration. Chest nontender. No accessory muscle usage noted or decreased air movement noted. Abdomen: Soft and nontender. Bowel sounds normal in all 4 quadrants. No distention noted. No organomegaly noted. No visible injury noted. Back: No CVA tenderness. Full range of motion noted. Skin: Skin warm and dry. Normal skin color. Normal skin turgor. No rashes/lesions/lacerations noted. Extremities: No lower extremity edema. Extremities exhibit normal range of motion. Extremities nontender. Neuro: Oriented X 3. Cranial nerve exam: II-XII are grossly intact No motor deficit. No sensory deficit. Reflexes normal. Course Course Course Narrative: 61-year-old female came in with dry cough, physical exam labs, chest x-ray are consistent with acute bronchitis. Start the patient on bronchodilator/prednisone/Augmentin. Patient was instructed to follow up with Dr. 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 Medical Decision Making Lab Data Lab results reviewed: Yes I reviewed the patient's lab results. Result diagrams: 01/08/22 08:51 01/08/22 08:51 Labs: Lab Results 01/08/22 01/08/22 01/08/22 Range/Units 08:51 08:51 08:51 WBC 5.9 (4.8-10.8) X10*3/uL RBC 3.71 L (4.20-5.50) X10*6/uL Hgb 12.0 (12.0-16.0) g/dl Hct 36.4 L (37.0-47.0) % MCV 98.1 H (80.0-98.0) fL MCH 32.3 (27.0-33.0) pg MCHC 33.0 (31.0-35.0) g/dl RDW 12.6 (11.0-16.0) % Plt Count 209 (160-400) X10*3/uL MPV 8.3 L (9.4-12.3) fL Immature Gran % (Auto) 0.5 H (0.0-0.4) % Neut % (Auto) 59.7 (45-73) % Lymph % (Auto) 29.6 (20-40) % [place] % (Auto) 6.8 (2-11) % Eos % (Auto) 2.9 (0-4) % Baso % (Auto) 0.5 (0-2) % Lymph # (Auto) 1.8 (1.2-4.9) X10*3/uL [place] # (Auto) 0.4 (0.1-1.2) X10*3/uL Eos # (Auto) 0.2 (0.0-0.4) X10*3/uL Baso # (Auto) 0.0 (0.0-0.2) X10*3/uL Abs Immat Gran (auto) 0.03 (0.00-0.03) X10*3/uL Absolute Neuts (auto) 3.5 (2.0-8.3) x10*3/uL Absolute Nucleated RBC 0.000 (0.0-0.012) X10*3/uL Nucleated RBC % (auto) 0.0 (0.0-0.2) /100WBC PT (10.0-13.1) SEC INR (0.9-1.1) APTT (26.0-36.4) SEC Sodium 139 (135-145) mmol/L Potassium 4.6 (3.3-5.1) mmol/L Chloride 104 (96-108) mmol/L Carbon Dioxide 25 (22-29) mmol/L Anion Gap 15 (12-20) BUN 24 H (9-16) mg/dL Creatinine 1.04 (0.5-1.4) mg/dL Estim Creat Clear Calc 61.0 Estimated GFR 54 Random Glucose 257 H (60-115) mg/dL Calcium 9.4 D (8.4-10.2) mg/dL Troponin I High Sens < 3.5 (<3.5-17.0) ng/L B-Natriuretic Peptide 33 (<100) pg/mL COVID-19 ([facility]) (Negative) COVID-19 Clin Com 01/08/22 01/08/22 01/08/22 Range/Units 08:51 08:51 11:54 WBC (4.8-10.8) X10*3/uL RBC (4.20-5.50) X10*6/uL Hgb (12.0-16.0) g/dl Hct (37.0-47.0) % MCV (80.0-98.0) fL MCH (27.0-33.0) pg MCHC (31.0-35.0) g/dl RDW (11.0-16.0) % Plt Count (160-400) X10*3/uL MPV (9.4-12.3) fL Immature Gran % (Auto) (0.0-0.4) % Neut % (Auto) (45-73) % Lymph % (Auto) (20-40) % [place] % (Auto) (2-11) % Eos % (Auto) (0-4) % Baso % (Auto) (0-2) % Lymph # (Auto) (1.2-4.9) X10*3/uL [place] # (Auto) (0.1-1.2) X10*3/uL Eos # (Auto) (0.0-0.4) X10*3/uL Baso # (Auto) (0.0-0.2) X10*3/uL Abs Immat Gran (auto) (0.00-0.03) X10*3/uL Absolute Neuts (auto) (2.0-8.3) x10*3/uL Absolute Nucleated RBC (0.0-0.012) X10*3/uL Nucleated RBC % (auto) (0.0-0.2) /100WBC PT 13.2 H (10.0-13.1) SEC INR 1.1 (0.9-1.1) APTT 38.6 H (26.0-36.4) SEC Sodium (135-145) mmol/L Potassium (3.3-5.1) mmol/L Chloride (96-108) mmol/L Carbon Dioxide (22-29) mmol/L Anion Gap (12-20) BUN (9-16) mg/dL Creatinine (0.5-1.4) mg/dL Estim Creat Clear Calc Estimated GFR Random Glucose (60-115) mg/dL Calcium (8.4-10.2) mg/dL Troponin I High Sens < 3.5 (<3.5-17.0) ng/L B-Natriuretic Peptide (<100) pg/mL COVID-19 ([facility]) Negative (Negative) COVID-19 Clin Com See Note Imaging Data Chest x-ray: Attestation: I personally reviewed and interpreted this imaging study as follows: Radiologist's impression: No acute pulmonary process ECG Data Attestation: I personally reviewed and interpreted this ECG as follows: Interpretation: Normal sinus rhythm at 77 beats per minute, left axis deviation, normal intervals. Discharge Plan Discharge Clinical Impression: Acute bronchitis Patient Disposition: Home, Self-Care Instructions: Acute Bronchitis (ED) Prescriptions: New amoxicillin-pot clavulanate 875-125 mg tablet 1 tab PO BID Qty: 14 0RF prednisone 20 mg tablet 20 mg PO BID Qty: 10 0RF albuterol sulfate 2.5 mg /3 mL (0.083 %) solution for nebulization 2.5 mg inhalation QID PRN (Reason: shortness of breath or wheezing) Qty: 75 0RF No Action cholecalciferol (vitamin D3) 25 mcg (1,000 unit) capsule 25 mcg PO DAILY Qty: 30 11RF Eliquis 5 mg tablet 5 mg PO BID Qty: 60 5RF pioglitazone 15 mg tablet 15 mg PO BID Qty: 180 2RF metformin 500 mg tablet extended release 24 hr 1,000 mg PO BID Qty: 360 1RF rosuvastatin 40 mg tablet 40 mg PO DAILY Qty: 90 1RF fluticasone propionate 50 mcg/actuation spray,suspension 1 spray intranasal DAILY albuterol sulfate [Ventolin HFA] 90 mcg/actuation HFA aerosol inhaler 2 puff PO Q4-6H PRN (Reason: Shortness Of Breath) lisinopril 40 mg tablet 40 mg PO DAILY benzonatate 200 mg capsule 200 mg PO TID PRN (Reason: cough) Qty: 30 0RF acetaminophen [Tylenol] 325 mg tablet 650 mg PO Q4H PRN (Reason: fever or pain) Qty: 60 0RF (DME) FreeStyle Lite Strips Strip See Rx Instructions Not Applicable DAILY Qty: 10 Rx Instructions: As directed calcium carbonate [Calcium 500] 500 mg calcium (1,250 mg) tablet,chewable 500 mg PO BID 30 Days Qty: 60 11RF (DME) lancets [FreeStyle Lancets] 28 gauge misc See Rx Instructions .Route Qty: 100 3RF Rx Instructions: As directed 1x/daily ezetimibe 10 mg tablet 10 mg PO DAILY Qty: 30 11RF loratadine 10 mg tablet 10 mg PO DAILY PRN (Reason: Allergy Symptoms) sertraline 100 mg tablet 200 mg PO DAILY PRN (Reason: Anxiety) mirabegron 25 mg tablet extended release 24 hr 25 mg PO DAILY diltiazem HCl [Cardizem CD] 180 mg capsule,extended release 24hr 180 mg PO DAILY Qty: 30 5RF Referrals: Areli Elam, STEVEDORE DOCK [Primary Care Provider] -
--- OUTSIDE RECORDS SUMMARY | 2022-01-08 09:33 | XMS_ITS | Continuity of Care Document ---
:1960 Demographics Address [address] [address] [place] Preferred Language so Marital Status Single
--- NOTE | 2022-01-08 09:51 | PC.NURSE ---
PT states asthma is getting worse, complaining of chest pain, dry cough, and bloody nose that has been on and off for two weeks. Crackles in bases, 02 at 95% on RA.
[2022-01-08 10:43] LABS: B Type Natriuretic Peptide 33 pg/mL (<100)
[2022-01-08] MEDS: predniSONE 20 MG TABLET 40 MG PO (10:46)
[2022-01-08] MEDS: Amoxicillin/Potassium Clav 875 MG TABLET PO (10:46)
[2022-01-08] MEDS: Albuterol Sulfate (0.083%) 2.5 MG/3 ML VIAL.NEB INHALE (11:20)
[2022-01-08] MEDS: Albuterol/Iprat 2.5/0.5MG 3 ML AMPUL.NEB INHALE (11:20)
[2022-01-08 11:23] VITALS: PULSE 67; RESP 18; O2SAT 97
[2022-01-08 12:17] VITALS: BP 139/54; PULSE 89; RESP 16; O2SAT 94
[2022-01-08 12:29] LABS: Troponin-I High Sensitivity < 3.5 ng/L (<3.5-17.0)
== END 2022-01-08 13:49 | disposition home or self-care (01) ==
PROVIDERS: Emergency Provider Emergency Medicine; PCP Nurse Practitioner Primary Care
DX: J20.9 Acute bronchitis, unspecified (principal); R06.02 Shortness of breath; Z20.822 Contact with and (suspected) exposure to COVID-19; E11.9 Type 2 diabetes mellitus without complications; I10 Essential (primary) hypertension; E78.5 Hyperlipidemia, unspecified; I48.0 Paroxysmal atrial fibrillation; Z87.891 Personal history of nicotine dependence; Z79.01 Long term (current) use of anticoagulants; Z79.899 Other long term (current) drug therapy; Z79.02 Long term (current) use of antithrombotics/antiplatelets; Z79.84 Long term (current) use of oral hypoglycemic drugs
CPT/HCPCS: 36415; 71045; 80048; 83880; 84484; 85025; 85610; 85730; 87635; 93005; 94640; 99284

== ENCOUNTER 2022-01-14 08:39 | Outpatient (REF) | payer OTHER, SELFPAY ==
[2022-01-14 09:53] LABS: Appearance Urine Clear; Color Urine Yellow; Glucose Urine UA Negative (Negative); Leukocyte Esterase Urine Moderate (2+) (Negative); Nitrite Urine Negative (Negative); PH 5.5 (5.0-9.0); Specific Gravity - Urine 1.015 (1.005-1.025); UMIC TRIGGER UA YES; Urine Blood Negative (Negative); Urine Ketones Negative (Negative); Urine Protein Negative (Neg-Trace)
[2022-01-14 09:59] LABS: Bacteria Urine Trace (None Seen); Hyaline Casts Urine 0-2 /LPF (0-2); RBC Urine 0-2 /HPF (0-2)
[2022-01-14 10:06] LABS: HBS Num1 1.45 mIU/mL (0-7.99); HBc Num1 0.09 S/CO (0.00-0.79); HBsAGNum1 0.17 S/CO (0.00-0.99); Hepatitis B Core Antibody Nonreactive (Nonreactive); Hepatitis B Surface Antigen Negative (Negative); ~HepC Num1 0.15 S/CO (0.00-0.79); ~Hepatitis B Surface Antibody NONREACTIVE (Nonreactive); ~Hepatitis C Antibody Nonreactive (Nonreactive)
[2022-01-14 12:44] LABS: Anion Gap 15 (12-20); Blood Urea Nitrogen 25 mg/dL (9-16); Calcium 9.2 mg/dL (8.4-10.2); Carbon Dioxide 27 mmol/L (22-29); Chloride 99 mmol/L (96-108); Estimated Glomerular Filt Rate 45; Potassium 4.4 mmol/L (3.3-5.1); Sodium 137 mmol/L (135-145)
[2022-01-14 13:27] LABS: Creatinine Urine 110.75 mg/dL; Microalbum/Creatinine Ratio Ur 24.3 ug/mg cr; Protein/Creatinine Ratio, Ur 0.07 (<0.2); Total Protein Urine Random 8 mg/dL (<12)
[2022-01-17 16:36] LABS: Complement C3 219 mg/dL (83-193)
[2022-01-18 14:22] LABS: Kappa Light Chain, Free Serum 20.8 mg/L (3.3-19.4); Lambda Light Chain, Free Serum 14.9 mg/L (5.7-26.3)
[2022-01-18 23:36] LABS: Prot Elec - Albumin 3.9 g/dL (3.8-4.8); Prot Elec - Alpha1 0.3 g/dL (0.2-0.3); Prot Elec - Alpha2 1.1 g/dL (0.5-0.9); Prot Elec - Beta 1 0.6 g/dL (0.4-0.6); Prot Elec - Beta 2 0.3 g/dL (0.2-0.5); Prot Elec - Gamma 0.9 g/dL (0.8-1.7); Prot Elec - Total Protein 7.1 g/dL (6.1-8.1)
== END 2022-01-14 08:40 | disposition home or self-care (01) ==
LOC: HO.LAB 08:39
PROVIDERS: PCP Nurse Practitioner Primary Care; Visit Provider Internal Medicine Nephrology
DX: I12.9 Hypertensive chronic kidney disease with stage 1 through stage 4 chronic kidney disease, or unspecified chronic kidney disease (principal); E11.22 Type 2 diabetes mellitus with diabetic chronic kidney disease; N18.32 Chronic kidney disease, stage 3b; E11.21 Type 2 diabetes mellitus with diabetic nephropathy
CPT/HCPCS: 36415; 80051; 81001; 82043; 82310; 82565; 83521; 84156; 84165; 84520; 86160; 86704; 86705; 86706; 86803; 87340

== ENCOUNTER → 2022-01-21 08:33 | Outpatient (BNVA) | payer OTHER, SELFPAY | PROVIDERS: PCP Nurse Practitioner Primary Care; Referring Provider Nurse Practitioner Primary Care; Visit Provider Nurse Practitioner | DX: K21.9 Gastro-esophageal reflux disease without esophagitis (principal); K31.84 Gastroparesis; M75.01 Adhesive capsulitis of right shoulder; M75.02 Adhesive capsulitis of left shoulder; M54.6 Pain in thoracic spine; M25.519 Pain in unspecified shoulder | CPT/HCPCS: 99212 ==

== ENCOUNTER 2022-02-10 08:03 | Outpatient (REF) | payer OTHER, SELFPAY ==
--- NOTE | ~2022-02-10 | MM_ITS ---
EXAMINATION: MM SCREENING DIGITAL BREAST TOMOSYNTHESIS, BILATERAL CLINICAL INFORMATION: Screening. Asymptomatic. COMPARISON: Mammography: February 08, 2021 and studies dating back to April 24, 2015 TECHNIQUE: Digital breast tomosynthesis is performed in both the craniocaudal and mediolateral oblique views along with computer-aided detection (CAD). Synthesized 2D images are generated from the tomosynthesis. FINDINGS: There are scattered areas of fibroglandular density (ACR BI-RADS breast composition Category b). There are no significant masses, abnormal calcifications, or other abnormalities. MM/MM tomosynthesis screening BI IMPRESSION: No significant changes from prior exam. ASSESSMENT: BI-RADS 1: Negative RECOMMENDATION: Routine annual mammography screening. This patient's information was entered into a reminder system with a target due date for their next mammogram.
== END 2022-02-10 08:04 | disposition home or self-care (01) ==
LOC: HO.MAMMO 08:03
PROVIDERS: PCP Nurse Practitioner Primary Care; Visit Provider Nurse Practitioner Primary Care
DX: Z12.31 Encounter for screening mammogram for malignant neoplasm of breast (principal)
CPT/HCPCS: 77063; 77067

== ENCOUNTER → 2022-02-15 13:17 | Outpatient (BNVA) | payer OTHER, SELFPAY | PROVIDERS: PCP Nurse Practitioner Primary Care; Visit Provider Physician Assistant | DX: M75.01 Adhesive capsulitis of right shoulder (principal); M75.02 Adhesive capsulitis of left shoulder | CPT/HCPCS: 20610; 99212 ==

== ENCOUNTER 2022-03-05 06:24 | Emergency (ER) | payer OTHER, SELFPAY ==
[2022-03-05 06:36] VITALS: BP 141/61; PULSE 82; RESP 18; TEMP 36.6; O2SAT 97; BMI 37.3
[2022-03-05 07:23] LABS: Influenza A PCR NEGATIVE (Negative); Influenza B PCR NEGATIVE (Negative); Resp Syncy Virus RNA Qual PCR POSITIVE (Negative); SARS COV2 PCR INHOUSE NEGATIVE (Negative)
--- NOTE | 2022-03-05 09:47 | ED_ITS ---
HPI - URI/Sore Throat General Chief Complaint: General Medical Stated Complaint: Congested/Sore throat Time Seen by Provider: 03/05/22 09:39 Source: patient Mode of arrival: ambulatory Limitations: no limitations History of Present Illness HPI Narrative: 61yoF c PMHx of asthma, atrial fibrillation currently on Eliquis, CAD, DM c neuropathy and hypertension presenting to the ER with URI complaints which include chills, fatigue, malaise, nasal congestion/rhinorrhea, sore throat and intermittent cough that is now becoming productive that started 2 days ago. She denies any measured fevers, dizziness, headaches, neck pain/stiffness, trouble swallowing or breathing, chest pain or shortness of breath, dyspnea on exertion, orthopnea, palpitations, paresthesias, nausea/vomiting/diarrhea constipation, black or bloody stools, abdominal pain, back pain, dysuria, hematuria, abnormal vaginal discharge, lower extremity edema or calf tenderness, recent travel or sick contacts that she is aware of or any other symptoms complaints or concerns at this time. MD elicited complaint: cough, sore throat, rhinorrhea and nasal congestion Onset (ago): day(s) (2) Consistency: constant and progressively worsening Severity: moderate Description of mucous: clear, watery and yellow Able to tolerate fluids by mouth: Yes Exacerbating factors: swallowing Relieving factors: nothing Associated symptoms: chills, myalgias, rhinorrhea, nasal congestion, sore throat and cough Treatments prior to arrival: none Related Data Home Medications Medication Instructions Recorded Confirmed loratadine 10 mg tablet 10 mg PO DAILY PRN Allergy Symptoms 02/26/20 12/30/21 sertraline 100 mg tablet 200 mg PO DAILY PRN Anxiety 02/26/20 12/30/21 fluticasone propionate 50 1 spray intranasal DAILY 12/20/20 12/30/21 mcg/actuation nasal spray,suspension albuterol sulfate 90 mcg/actuation 2 puff PO Q4-6H PRN Shortness Of 12/28/20 12/30/21 aerosol inhaler (Ventolin HFA) Breath lisinopril 40 mg tablet 40 mg PO DAILY 04/20/21 12/30/21 blood sugar diagnostic (FreeStyle #10 ea 06/23/21 10/21/21 Lite Strips) gabapentin 100 mg capsule 100 mg PO BID 01/21/22 tiotropium bromide 1.25 2 puff inhalation DAILY 01/21/22 mcg/actuation mist for inhalation (Spiriva Respimat) Previous Rx's Medication Instructions Recorded cholecalciferol (vitamin D3) 25 25 mcg PO DAILY #30 caps 04/04/21 mcg (1,000 unit) capsule ezetimibe 10 mg tablet 10 mg PO DAILY #30 tabs 06/23/21 lancets 28 gauge (FreeStyle #100 ea 06/23/21 Lancets) pioglitazone 15 mg tablet 15 mg PO BID #180 tabs 09/23/21 acetaminophen 325 mg tablet 650 mg PO Q4H PRN fever or pain 12/13/21 (Tylenol) #60 tabs metformin 500 mg tablet,extended 1,000 mg PO BID #360 tabs 12/14/21 release 24 hr rosuvastatin 40 mg tablet 40 mg PO DAILY #90 tabs 12/14/21 diltiazem HCl 180 mg 180 mg PO DAILY #30 caps 12/30/21 capsule,extended release 24 hr (Cardizem CD) albuterol sulfate 2.5 mg/3 mL 2.5 mg (3 mL) inhalation QID PRN 01/08/22 (0.083 %) solution for nebulization shortness of breath or wheezing #75 mL apixaban 5 mg tablet (Eliquis) 5 mg PO BID #60 tabs 01/25/22 azithromycin 250 mg tablet See Rx Instructions PO .COMPLEX #6 03/05/22 tabs Allergies Allergy/AdvReac Type Severity Reaction Status Date / Time ibuprofen [IBUPROFEN] Allergy Severe SICK TO Verified 03/05/22 06:40 MY STOMACH ciprofloxacin [From CIPRO] Allergy Intermediate SICK Verified 03/05/22 06:40 doxycycline Allergy Intermediate Dizziness Verified 03/05/22 06:40 levofloxacin [From LEVAQUIN] Allergy Intermediate SICK , Verified 03/05/22 06:40 nausea, dizziness x days flu vaccine Allergy Intermediate Swelling Uncoded 03/05/22 06:40 Review of Systems Review of Systems: Constitutional : + chills/fatigue/malaise, No Weight loss, No Fever, No Night Sweats ENT/Mouth : No Hearing loss, No Ear Pain, + Nasal Congestion, No Sinus Pain, No Hoarseness, + sore throat, + Rhinorrhea, No Swallowing Difficulty Eyes: No Eye Pain, No Swelling, No Redness, No Foreign Body, No Discharge, No Vision Changes Cardiovascular : No Chest Pain, No SOB, No Dyspnea on Exertion, No Orthopnea, No Edema, No Palpitations Respiratory : + Cough, No Sputum, No Wheezing, No Smoke Exposure, No Dyspnea Gastrointestinal : No Nausea, No Vomiting, No Diarrhea, No Constipation, No abdominal Pain, No Hematochezia, No Melena Genitourinary : no irregular bleeding, No Dysuria, No Urinary Frequency, No Hematuria, No Urinary Incontinence, No Urgency, No Flank Pain, No Urinary Flow Changes, No Hesitancy Musculoskeletal : No joint pain, + Myalgias, No Joint Swelling Skin : No Skin Lesions, No rash Neuro : No Weakness, No Numbness, No Paresthesias, No Loss of Consciousness, No Dizziness, No Headache Psych : No Anxiety/Panic, No Depression, No SI/HI/AH/VH, No Social Issues, Heme/Lymph: No Bruising, No Bleeding,No Lymphadenopathy Endocrine : No Polyuria, No Polydipsia, No Temperature Intolerance Yes all other systems are reviewed and are negative [facility] Past Medical History Attestation statement: The following information was validated with the patient. Source: old records reviewed and nursing notes reviewed Medical History Asthma Atrial fibrillation Bronchitis CAD (coronary artery disease) Diabetes Diabetic 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 Dyslipidemia GERD (gastroesophageal reflux disease) Hypertension Obesity (BMI 30-39.9) Obesity due to excess calories Osteopenia Paroxysmal atrial fibrillation Type 2 diabetes mellitus with hyperglycemia Vitamin D deficiency Surgical History History of esophagogastroduodenoscopy (EGD) Hx of cataract surgery Hx of colonoscopy Hx of foot surgery Family History Family History Father Heart failure Diabetes mellitus Mother Cholangiocarcinoma Diabetes mellitus Family history of hypertension Family history of heart attack Brother Lung cancer Family/Other Breast cancer Sister Social History Social History Household Members: Children Housing: Apartment Do you presently have visiting nurse or other home services: Yes Alcohol intake: unknown Patient Tobacco Use Status: Former Tobacco user Cigarettes Per Day: 12 Years Smoked: 45 Advance Directives: No Advance Directives Information Provided: No Advance Directives Date on File: 12/19/20 service: No Current occupational status: unemployed Physical Exam Vital Signs: Vital Signs: Last Vital Signs Temp 97.9 F 03/05/22 06:36 Pulse 82 03/05/22 06:36 Resp 18 03/05/22 06:36 BP 141/61 H 03/05/22 06:36 Pulse Ox 97 03/05/22 06:36 O2 Del Method 03/05/22 06:36 BMI result Body Mass Index 37.3 vital signs have been reviewed as normal and appeared to be correct. Blood pressure 141/61. Heart rate normal. Respiration rate normal. Temperature normal. Oxygen saturation normal. Appearance: Alert. Oriented X3. No acute distress. Head: Normal external exam. Normocephalic. Atraumatic. Eyes: PERRLA. EOMI. Conjunctiva and sclera normal. Eyelids normal. ENT: EAC normal. TM's Normal. Posterior pharynx/tonsils erythematous with scattered exudate throughout. The rest of the soft and hard palate within normal limits. Uvula midline. Moist mucous membranes. No lesions/ulcerations or masses noted on the tongue. Normal voice. No trismus noted. No drooling noted. No muffled voice noted. Neck: Normal inspection. Neck supple. FROM. No adenopathy. Thyroid Normal. No tracheal deviation noted. No crepitus is noted. No meningeal signs. No neck mass noted. No signs of trauma noted. CVS: Normal heart rate and rhythm. Heart sound normal. Pulses normal throughout. No murmurs/rales/gallops. Respiratory: No respiratory distress. Painless inspiration. Breath sounds normal. No wheezes/rales/rhonchi noted. Chest nontender. No crepitus is noted. No accessory muscle usage noted or decreased air movement noted. Abdomen: Soft and nontender. Nondistended. No guarding. No rigidity. Bowel sounds normal in all 4 quadrants. No distention noted. No organomegaly noted. Back: Full range of motion noted. Skin: Skin warm and dry. Normal skin color. Normal skin turgor. No rashes/lesions/lacerations noted. Extremities: No lower extremity edema. No calf tenderness is noted. Extremities exhibit normal range of motion and nontender. Neuro: Oriented X 3. No motor deficit. No sensory deficit. Reflexes normal. Normal steady gait. No focal neuro deficits noted. CN's II-XII intact bilaterally? Vascular: + radial pulses/+ 2 distal pedal pulses/+2 dorsalis pedis b/l. Normal cap refill. No cyanosis noted to upper extremity nails and lower extremity toes nails. Course Course Course Narrative: 61-year-old female presenting with URI complaints for the past 2 days. On exam she is alert oriented x3. Not in any acute distress. Vital signs are stable within normal limits. Lungs clear to auscultation. CV RRR. Abdomen soft and nontender. No lower extremity edema or calf tenderness noted. Patient positive for RSV. Negative for COVID and flu. Patient does have exudate and her main complaint is a sore throat therefore strep swab at this time. No additional labs or imaging indicated. Will DC home with antibiotics and symptomatic treatment instructions return if any new or worsening symptoms to follow up with primary care provider. Patient understands agrees with this plan. MDM - URI/Sore Throat Medical Records Attestation: I reviewed the patient's medical records. Lab Data Attestation: I reviewed the patient's lab results. Labs: Lab Results 03/05/22 Range/Units 06:42 Influenza Type A (PCR) NEGATIVE (Negative) Influenza Type B (PCR) NEGATIVE (Negative) RSV RNA Qual (PCR) POSITIVE A (Negative) SARS-CoV-2 RNA (RT-PCR) NEGATIVE (Negative) Discharge Plan Discharge Clinical Impression: Pharyngitis due to respiratory syncytial virus (RSV) Patient Disposition: Home, Self-Care Instructions: Respiratory Syncytial Virus (ED), Pharyngitis (ED) Prescriptions: New azithromycin 250 mg tablet See Rx Instructions .ROUTE .COMPLEX Qty: 6 0RF Rx Instructions: For 250 mg dose pack: take 500 mg today (day 1), then 250 mg for 4 days (days 2-5) No Action cholecalciferol (vitamin D3) 25 mcg (1,000 unit) capsule 25 mcg PO DAILY Qty: 30 11RF pioglitazone 15 mg tablet 15 mg PO BID Qty: 180 2RF metformin 500 mg tablet extended release 24 hr 1,000 mg PO BID Qty: 360 1RF rosuvastatin 40 mg tablet 40 mg PO DAILY Qty: 90 1RF Eliquis 5 mg tablet 5 mg PO BID Qty: 60 5RF fluticasone propionate 50 mcg/actuation spray,suspension 1 spray intranasal DAILY albuterol sulfate 2.5 mg /3 mL (0.083 %) solution for nebulization 2.5 mg inhalation QID PRN (Reason: shortness of breath or wheezing) Qty: 75 0RF albuterol sulfate [Ventolin HFA] 90 mcg/actuation HFA aerosol inhaler 2 puff PO Q4-6H PRN (Reason: Shortness Of Breath) lisinopril 40 mg tablet 40 mg PO DAILY acetaminophen [Tylenol] 325 mg tablet 650 mg PO Q4H PRN (Reason: fever or pain) Qty: 60 0RF (DME) FreeStyle Lite Strips Strip See Rx Instructions Not Applicable DAILY Qty: 10 Rx Instructions: As directed (DME) lancets [FreeStyle Lancets] 28 gauge misc See Rx Instructions .Route Qty: 100 3RF Rx Instructions: As directed 1x/daily ezetimibe 10 mg tablet 10 mg PO DAILY Qty: 30 11RF loratadine 10 mg tablet 10 mg PO DAILY PRN (Reason: Allergy Symptoms) sertraline 100 mg tablet 200 mg PO DAILY PRN (Reason: Anxiety) gabapentin 100 mg capsule 100 mg PO BID Spiriva Respimat 1.25 mcg/actuation mist 2 puff inhalation DAILY diltiazem HCl [Cardizem CD] 180 mg capsule,extended release 24hr 180 mg PO DAILY Qty: 30 5RF Referrals: Areli Elam, EDUCATIONAL TECHNOLOGY SPECIALIST [Primary Care Provider] - 3 days Interventions: HAIR Worksheet Last Done: 03/05/22 07:25 Print Language: Georgian
[2022-03-05 10:31] LABS: Strep A Nucleic Acid Negative (Negative)
== END 2022-03-05 10:00 | disposition home or self-care (01) ==
PROVIDERS: Emergency Medicine; Physician Assistant Medical; Emergency Provider Emergency Medicine; PCP Nurse Practitioner Primary Care
DX: J02.8 Acute pharyngitis due to other specified organisms (principal); B97.4 Respiratory syncytial virus as the cause of diseases classified elsewhere; Z20.822 Contact with and (suspected) exposure to COVID-19
CPT/HCPCS: 0241U; 36415; 87651; 99283

== ENCOUNTER 2022-04-20 07:04 | Outpatient (REF) | payer OTHER, SELFPAY ==
--- NOTE | ~2022-04-20 | XR_ITS ---
EXAMINATION: XR CHEST CLINICAL INFORMATION: COPD. Pain with deep breaths. COMPARISON: None TECHNIQUE: 2 views of the chest were obtained. FINDINGS: No significant abnormality is noted involving the heart, lungs, mediastinum, bony thorax or soft tissues. XR/XR chest 2V IMPRESSION: Unremarkable chest examination.
== END 2022-04-20 07:05 | disposition home or self-care (01) ==
LOC: HO.XRAY 07:04
PROVIDERS: PCP Nurse Practitioner Primary Care; Visit Provider Nurse Practitioner Primary Care
DX: R07.81 Pleurodynia (principal); J44.9 Chronic obstructive pulmonary disease, unspecified
CPT/HCPCS: 71046

== ENCOUNTER → 2022-04-26 11:58 | Outpatient (BNVA) | payer OTHER, SELFPAY | PROVIDERS: PCP Nurse Practitioner Primary Care; Referring Provider Nurse Practitioner Primary Care; Visit Provider Internal Medicine Cardiovascular Disease | DX: I48.0 Paroxysmal atrial fibrillation (principal); I25.10 Atherosclerotic heart disease of native coronary artery without angina pectoris | CPT/HCPCS: 99212 ==

== ENCOUNTER 2022-04-29 06:03 | Emergency (ER) | payer OTHER, SELFPAY ==
[2022-04-29 06:09] VITALS: BP 157/67; PULSE 77; RESP 16; TEMP 36.4; O2SAT 97; BMI 37.0
--- NOTE | 2022-04-29 06:29 | PC.NURSE ---
Pt aox3. Reports throat pain, 10/10. Completed 10 days of antibiotic with no improvement. Reports symptoms have worsen. Throat and nasal specimen collected and sent to the lab. Pending results.
[2022-04-29 06:47] LABS: IDNOW Serial# 6674DD1D; Strep A Nucleic Acid Negative (Negative)
[2022-04-29 06:55] LABS: COVID-19 Test Negative (Negative); IDNOW Serial# BCCEAD1C
--- NOTE | 2022-04-29 07:03 | ED.GENADULT ---
HPI - General Adult General Chief complaint: General Medical Stated complaint: Sore throat/Earache Time Seen by Provider: 04/29/22 06:43 Source: patient Mode of arrival: ambulatory History of Present Illness HPI narrative: 61-year-old female with diabetes presents with complaints of left ear/throat pain in recently completed a 10 day course of antibiotics from a walk-in clinic in states that she completed those antibiotics yesterday but she continues to have discomfort in the left ear. Otherwise she denies any GI or symptoms and denies any fevers or chills. Related Data Home Medications Medication Instructions Recorded Confirmed loratadine 10 mg tablet 10 mg PO DAILY PRN Allergy Symptoms 02/26/20 04/26/22 sertraline 100 mg tablet 200 mg PO DAILY PRN Anxiety 02/26/20 04/26/22 fluticasone propionate 50 1 spray intranasal DAILY 12/20/20 04/26/22 mcg/actuation nasal spray,suspension albuterol sulfate 90 mcg/actuation 2 puff PO Q4-6H PRN Shortness Of 12/28/20 04/26/22 aerosol inhaler (Ventolin HFA) Breath lisinopril 40 mg tablet 40 mg PO DAILY 04/20/21 04/26/22 blood sugar diagnostic (FreeStyle #10 ea 06/23/21 04/26/22 Lite Strips) gabapentin 100 mg capsule 100 mg PO BID 01/21/22 04/26/22 tiotropium bromide 1.25 2 puff inhalation DAILY 01/21/22 04/26/22 mcg/actuation mist for inhalation (Spiriva Respimat) Previous Rx's Medication Instructions Recorded cholecalciferol (vitamin D3) 25 25 mcg PO DAILY #30 caps 04/04/21 mcg (1,000 unit) capsule ezetimibe 10 mg tablet 10 mg PO DAILY #30 tabs 06/23/21 lancets 28 gauge (FreeStyle #100 ea 06/23/21 Lancets) pioglitazone 15 mg tablet 15 mg PO BID #180 tabs 09/23/21 acetaminophen 325 mg tablet 650 mg PO Q4H PRN fever or pain 12/13/21 (Tylenol) #60 tabs metformin 500 mg tablet,extended 1,000 mg PO BID #360 tabs 12/14/21 release 24 hr rosuvastatin 40 mg tablet 40 mg PO DAILY #90 tabs 12/14/21 diltiazem HCl 180 mg 180 mg PO DAILY #30 caps 12/30/21 capsule,extended release 24 hr (Cardizem CD) albuterol sulfate 2.5 mg/3 mL 2.5 mg (3 mL) inhalation QID PRN 01/08/22 (0.083 %) solution for nebulization shortness of breath or wheezing #75 mL apixaban 5 mg tablet (Eliquis) 5 mg PO BID #60 tabs 01/25/22 ofloxacin 0.3 % ear drops 5 drp otic (ear) left BID 7 days 04/29/22 #10 mL Allergies Allergy/AdvReac Type Severity Reaction Status Date / Time ibuprofen [IBUPROFEN] Allergy Severe SICK TO Verified 03/05/22 06:40 MY STOMACH ciprofloxacin [From CIPRO] Allergy Intermediate SICK Verified 03/05/22 06:40 doxycycline Allergy Intermediate Dizziness Verified 03/05/22 06:40 levofloxacin [From LEVAQUIN] Allergy Intermediate SICK , Verified 03/05/22 06:40 nausea, dizziness x days flu vaccine Allergy Intermediate Swelling Uncoded 03/05/22 06:40 Review of Systems Review of Systems: Pertinent positives and negatives as stated in [facility]PI [facility] Past Medical History Source: nursing notes reviewed Medical History Asthma Atrial fibrillation Bronchitis CAD (coronary artery disease) Diabetes Diabetic 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 Dyslipidemia GERD (gastroesophageal reflux disease) Hypertension Obesity (BMI 30-39.9) Obesity due to excess calories Osteopenia Paroxysmal atrial fibrillation Type 2 diabetes mellitus with hyperglycemia Vitamin D deficiency Surgical History History of esophagogastroduodenoscopy (EGD) Hx of cataract surgery Hx of colonoscopy Hx of foot surgery Family History Family History Father Heart failure Diabetes mellitus Mother Cholangiocarcinoma Diabetes mellitus Family history of hypertension Family history of heart attack Brother Lung cancer Family/Other Breast cancer Sister Social History Social History Household Members: Children Housing: Apartment Do you presently have visiting nurse or other home services: Yes Alcohol intake: unknown Patient Tobacco Use Status: Former Tobacco user Cigarettes Per Day: 12 Years Smoked: 45 Advance Directives: No Advance Directives Date on File: 12/19/20 service: No Current occupational status: unemployed Physical Exam ED Vital Signs: Vital Signs - 24 hr 04/29/22 06:09 Temperature 97.6 F Pulse Rate 77 Respiratory Rate 16 Blood Pressure 157/67 H Pulse Oximetry 97 Oxygen Delivery Method Room Air BMI result Body Mass Index 37.0 VITAL SIGNS: Reviewed. GENERAL: Well developed, well nourished, in no acute distress. HEAD: Normocephalic/atraumatic EYES: PERRLA, EOMI EARS: RIGHT- Ext canals without abnormality, TMs non-bulging and non-erythematous ;LEFT- Ext canals with debris and erythema, TMs non-bulging but erythematous NOSE: Nares patent bilateral OROPHARYNX: no oral lesions noted, posterior pharynx clear and non-erythematous without noted tonsillar enlargement/erythema/exudates, no uvula deviation NECK: Supple, no adenopathy LUNGS: Normal breath sounds. No adventitious sounds or accessory muscle use. SpO2<97> CARDIOVASCULAR: Regular rate and rhythm without noted murmurs. ABDOMEN: Soft, non-tender, non-distended with bowel sounds. NEUROLOGIC: Alert and oriented x 4. Strength and sensation to light touch were grossly intact x 4. Medical Decision Making Medical Decision Making [facility] Narrative: This is a 61-year-old female with no evidence to suggest peritonsillar abscess in review of strep and viral testing is negative in my interpretation and on examination of the left ear patient appears to have an otitis externa and given that she is diabetic and still has no relief from the systemic antibiotics that she was on I will start her on ofloxacin with instructions to follow-up with her primary care provider. Patient did receive Tylenol while here in the emergency room. On further discussion with the patient regarding her allergy to ciprofloxacin and levofloxacin, she states that she shakes and gets itchy hands. She denies any difficulty with swallowing or breathing or facial swelling. She states that her A1c is 10 and therefore I counseled her on using the ear drops with a little bit of Benadryl but if she develops any difficulty with breathing or facial swelling she should immediately stop the drops in come to the emergency room. This was discussed with patient at bedside in the presence of the nursing staff. Differential Diagnosis Differential Diagnoses: The differential diagnosis associated with the presentation includes Please see the discussion above Lab Data [facility] Lab Attestation statement: I reviewed the patient's lab results. Please see the discussion above Labs: Lab Results 04/29/22 04/29/22 Range/Units 06:23 06:23 COVID-19 (LINA) Negative (Negative) COVID-19 Clin Com See Note S. pyogenes GrpA NARINDER Negative (Negative) External Record Review External record reviewed: Outpatient record and Prior outpatient labs Chronic Conditions Patient?s care impacted by: Diabetes Discharge Plan Discharge Clinical Impression: Otitis externa Patient Disposition: Home, Self-Care Instructions: Otitis Externa (ED) Additional Instructions: 1. Resume all home medications as prescribed. 2. I recommend [id number] Tylenol for pain control as well as [id number] Cepacol which are throat lozenges and work very well for throat pain. 3. Please follow-up with your primary care provider. Do not hesitate to return to the emergency room if you experience any worsening of your symptoms. Prescriptions: New ofloxacin 0.3 % drops 5 drp otic (ear) left BID 7 Days Qty: 10 0RF No Action cholecalciferol (vitamin D3) 25 mcg (1,000 unit) capsule 25 mcg PO DAILY Qty: 30 11RF pioglitazone 15 mg tablet 15 mg PO BID Qty: 180 2RF metformin 500 mg tablet extended release 24 hr 1,000 mg PO BID Qty: 360 1RF rosuvastatin 40 mg tablet 40 mg PO DAILY Qty: 90 1RF Eliquis 5 mg tablet 5 mg PO BID Qty: 60 5RF fluticasone propionate 50 mcg/actuation spray,suspension 1 spray intranasal DAILY albuterol sulfate 2.5 mg /3 mL (0.083 %) solution for nebulization 2.5 mg inhalation QID PRN (Reason: shortness of breath or wheezing) Qty: 75 0RF albuterol sulfate [Ventolin HFA] 90 mcg/actuation HFA aerosol inhaler 2 puff PO Q4-6H PRN (Reason: Shortness Of Breath) lisinopril 40 mg tablet 40 mg PO DAILY acetaminophen [Tylenol] 325 mg tablet 650 mg PO Q4H PRN (Reason: fever or pain) Qty: 60 0RF (DME) FreeStyle Lite Strips Strip See Rx Instructions Not Applicable DAILY Qty: 10 Rx Instructions: As directed (DME) lancets [FreeStyle Lancets] 28 gauge misc See Rx Instructions .Route Qty: 100 3RF Rx Instructions: As directed 1x/daily ezetimibe 10 mg tablet 10 mg PO DAILY Qty: 30 11RF loratadine 10 mg tablet 10 mg PO DAILY PRN (Reason: Allergy Symptoms) sertraline 100 mg tablet 200 mg PO DAILY PRN (Reason: Anxiety) gabapentin 100 mg capsule 100 mg PO BID Spiriva Respimat 1.25 mcg/actuation mist 2 puff inhalation DAILY diltiazem HCl [Cardizem CD] 180 mg capsule,extended release 24hr 180 mg PO DAILY Qty: 30 5RF Referrals: Areli Elam, [employer] DEVELOPER [Primary Care Provider] -
[2022-04-29] MEDS: Acetaminophen 325 MG TABLET 975 MG PO (07:17)
[2022-04-29] MEDS: Throat Lozenge, Medicated LOZENGE 1 LOZENGE MUCOUS MEM (07:17)
== END 2022-04-29 07:58 | disposition home or self-care (01) ==
PROVIDERS: Emergency Provider Student in an Organized Health Care Education/Training Program; PCP Nurse Practitioner Primary Care
DX: H60.92 Unspecified otitis externa, left ear (principal); J02.9 Acute pharyngitis, unspecified; Z20.822 Contact with and (suspected) exposure to COVID-19; E11.9 Type 2 diabetes mellitus without complications; I10 Essential (primary) hypertension; E78.5 Hyperlipidemia, unspecified; I48.0 Paroxysmal atrial fibrillation; E66.9 Obesity, unspecified; Z68.37 Body mass index [BMI] 37.0-37.9, adult; Z79.84 Long term (current) use of oral hypoglycemic drugs; Z79.02 Long term (current) use of antithrombotics/antiplatelets; Z79.01 Long term (current) use of anticoagulants; Z79.899 Other long term (current) drug therapy; Z87.891 Personal history of nicotine dependence
CPT/HCPCS: 36415; 87635; 87651; 99283

== ENCOUNTER 2022-06-30 14:27 | Outpatient (REF) | payer OTHER, SELFPAY ==
--- NOTE | ~2022-06-30 | US_ITS ---
EXAMINATION: US RETROPERITONEAL LIMITED (RENAL ONLY) CLINICAL INFORMATION: Hypertension, chronic kidney disease. COMPARISON: CT abdomen and pelvis without contrast 04/16/2019. Ultrasound abdomen complete 12/18/2014 and 04/29/2013. TECHNIQUE: Real-time imaging of the kidneys. FINDINGS: RIGHT KIDNEY: 10.5 x 5.6 x 5.9 cm (SAG x AP x TRV). The kidney is normal in size, contour, and echogenicity. Renal cortical thickness is normal. No renal calculi or hydronephrosis. Simple cyst in the mid to lower pole measuring 3.6 cm, for which no imaging follow-up is recommended. Scattered vascular calcifications noted. LEFT KIDNEY: 11.2 x 5.7 x 5.1 cm (SAG x AP x TRV). The kidney is normal in size, contour, and echogenicity. Renal cortical thickness is normal. No renal calculi or hydronephrosis. Simple cyst in the mid pole measuring 2.3 cm, for which no imaging follow-up is recommended. Scattered vascular calcifications noted. US/US renal BI IMPRESSION: No nephrolithiasis or hydronephrosis. Bilateral simple cysts. Scattered renal vascular calcifications.
== END 2022-06-30 14:28 | disposition home or self-care (01) ==
LOC: HO.US 14:27
PROVIDERS: PCP Nurse Practitioner Primary Care; Visit Provider Internal Medicine Nephrology
DX: N18.32 Chronic kidney disease, stage 3b (principal); E11.21 Type 2 diabetes mellitus with diabetic nephropathy
CPT/HCPCS: 76775

== ENCOUNTER → 2022-07-15 08:15 | Outpatient (BNVA) | payer OTHER, SELFPAY | PROVIDERS: PCP Nurse Practitioner Primary Care; Visit Provider Nurse Practitioner | DX: Z12.11 Encounter for screening for malignant neoplasm of colon (principal); K21.00 Gastro-esophageal reflux disease with esophagitis, without bleeding; K59.00 Constipation, unspecified; K31.84 Gastroparesis; Z83.71 Family history of colonic polyps | CPT/HCPCS: 99212 ==

== ENCOUNTER 2022-08-24 00:38 | Emergency (ER) | payer OTHER, SELFPAY ==
--- NOTE | 2022-08-24 | ECG_ITS ---
Test Reason : CHEST PAIN Blood Pressure : / mmHG Vent. Rate : 059 BPM Atrial Rate : 059 BPM P-R Int : 210 ms QRS Dur : 082 ms QT Int : 386 ms P-R-T Axes : 025 006 032 degrees QTc Int : 382 ms Sinus bradycardia with 1st degree A-V block Otherwise normal ECG When compared with ECG of 08-JAN-2022 08:45, [place] interval has increased Referred By: Generic ED Physician Electronically Signed By:SANJEEV NOBLE
--- NOTE | ~2022-08-24 | CT_ITS ---
EXAMINATION: CT ABDOMEN AND PELVIS WITHOUT CONTRAST CLINICAL INFORMATION: Lower abdominal pain. COMPARISON: 04/16/2019 TECHNIQUE: Multidetector volumetric imaging was performed from the superior aspect of the liver through the pubic symphysis. Sagittal and coronal reformatted images were obtained on the technologist's workstation. This CT examination was performed using dose optimization techniques as appropriate, variously including the following: *Automated exposure control *Adjustment of mA and/or kV according to patient size (this includes techniques or standardized protocols for targeted exams where dose is matched to indication/reason for exam; i.e. extremities or head) *Use of iterative reconstruction technique DLP: 698 mGy-cm FINDINGS: LUNG BASES: The visualized lung bases are unremarkable. LIVER, GALLBLADDER, AND BILIARY TREE: The liver is normal in size, shape, and attenuation. No focal hepatic lesion or biliary ductal dilatation is present. Cholecystectomy. PANCREAS: Unremarkable. SPLEEN: Unremarkable. ADRENAL GLANDS: Unremarkable. KIDNEYS AND URETERS: The kidneys are normal in size, shape, and attenuation. No hydronephrosis, hydroureter, or calculi seen. Bilateral simple renal cysts redemonstrated. No follow-up imaging recommended. No perinephric stranding. BLADDER: Unremarkable. GASTROINTESTINAL TRACT: Pancolonic diverticulosis. No evidence of diverticulitis. Normal appendix. Stomach and small bowel unremarkable. ABDOMINAL WALL: No significant hernia is appreciated. LYMPH NODES: Normal. VASCULAR: Aorta is atherosclerotic but normal caliber. PELVIC VISCERA: Hysterectomy. Ovaries are normal. OSSEOUS STRUCTURES: No acute or suspicious osseous abnormalities. CT/CT abdomen pelvis wo IV con IMPRESSION: * No acute findings within the abdomen or pelvis to explain the patient's symptomatology. * Pancolonic diverticulosis without evidence of diverticulitis. * Cholecystectomy and hysterectomy.
[2022-08-24 00:53] VITALS: BP 168/59; PULSE 68; RESP 20; TEMP 36.4; O2SAT 97; BMI 37.2
[2022-08-24 01:14] LABS: Hemoglobin 11.9 g/dl (12.0-16.0); Mean Corpuscular Hemoglobin 31.7 pg (27.0-33.0); Mean Corpuscular Volume 93.3 fL (80.0-98.0); Mean Platelet Volume 8.7 fL (9.4-12.3); Platelet Count 230 X10*3/uL (160-400); Red Blood Count 3.75 X10*6/uL (4.20-5.50); Red Cell Distribution Width 12.6 % (11.0-16.0); White Blood Count 6.3 X10*3/uL (4.8-10.8)
[2022-08-24 01:44] LABS: Troponin-I High Sensitivity < 2.7 ng/L (<3.5-17.0)
[2022-08-24 01:46] LABS: Alanine Aminotransferase 27 U/L (0-31); Albumin Level 3.9 g/dL (3.5-5.0); Alkaline Phosphatase 77 U/L (39-117); Anion Gap 13 (12-20); Aspartate Amino Transferase 21 U/L (5-31); Bilirubin Total 0.5 mg/dL (0.0-1.0); Blood Urea Nitrogen 26 mg/dL (9-16); Calcium 9.7 mg/dL (8.4-10.2); Carbon Dioxide 24 mmol/L (22-29); Chloride 102 mmol/L (96-108); Creatinine Clr Calc Pharmacy 36.5; Estimated Glomerular Filt Rate 30; Potassium 4.4 mmol/L (3.3-5.1); Sodium 135 mmol/L (135-145); Total Protein 6.7 g/dL (6.5-8.0)
[2022-08-24 01:56] LABS: Glucose Random 374 mg/dL (60-115)
--- NOTE | 2022-08-24 02:44 | ED_ITS ---
HPI - Abdominal Pain General Chief Complaint: Chest Pain Stated Complaint: High blood sugar HBP Time Seen by Provider: 08/24/22 02:16 Source: patient, family (Son) and staff interpreter Mode of arrival: ambulatory Limitations: no limitations History of Present Illness HPI narrative: 62-year-old female history of asthma, paroxysmal atrial fibrillation on Eliquis, CAD, DM with nephropathy, HTN, came in for evaluation for lower abdominal pain started early today pain was described as dull aching pain affecting suprapubi c/lower abdomen, pain is associated with nausea and vomiting, patient had normal bowel movement earlier today with no blood in the stool, no fever, no chills. Only abdominal surgery is significant for cholecystectomy. Related Data Home Medications Medication Instructions Recorded Confirmed loratadine 10 mg tablet 10 mg PO DAILY PRN Allergy Symptoms 02/26/20 04/26/22 sertraline 100 mg tablet 200 mg PO DAILY PRN Anxiety 02/26/20 04/26/22 fluticasone propionate 50 1 spray intranasal DAILY 12/20/20 04/26/22 mcg/actuation nasal spray,suspension albuterol sulfate 90 mcg/actuation 2 puff PO Q4-6H PRN Shortness Of 12/28/20 04/26/22 aerosol inhaler (Ventolin HFA) Breath lisinopril 40 mg tablet 40 mg PO DAILY 04/20/21 04/26/22 blood sugar diagnostic (FreeStyle #10 ea 06/23/21 04/26/22 Lite Strips) gabapentin 100 mg capsule 100 mg PO BID 01/21/22 04/26/22 tiotropium bromide 1.25 2 puff inhalation DAILY 01/21/22 04/26/22 mcg/actuation mist for inhalation (Spiriva Respimat) Previous Rx's Medication Instructions Recorded cholecalciferol (vitamin D3) 25 25 mcg PO DAILY #30 caps 04/04/21 mcg (1,000 unit) capsule ezetimibe 10 mg tablet 10 mg PO DAILY #30 tabs 06/23/21 lancets 28 gauge (FreeStyle #100 ea 06/23/21 Lancets) pioglitazone 15 mg tablet 15 mg PO BID #180 tabs 09/23/21 acetaminophen 325 mg tablet 650 mg PO Q4H PRN fever or pain 12/13/21 (Tylenol) #60 tabs metformin 500 mg tablet,extended 1,000 mg PO BID #360 tabs 12/14/21 release 24 hr rosuvastatin 40 mg tablet 40 mg PO DAILY #90 tabs 12/14/21 albuterol sulfate 2.5 mg/3 mL 2.5 mg (3 mL) inhalation QID PRN 01/08/22 (0.083 %) solution for nebulization shortness of breath or wheezing #75 mL ofloxacin 0.3 % ear drops 5 drp otic (ear) left BID 7 days 04/29/22 #10 mL diltiazem HCl 180 mg 180 mg PO DAILY 90 days #90 caps 06/20/22 capsule,extended release 24 hr (Cardizem CD) apixaban 5 mg tablet (Eliquis) 5 mg PO BID #60 tabs 08/01/22 Allergies Allergy/AdvReac Type Severity Reaction Status Date / Time ibuprofen [IBUPROFEN] Allergy Severe SICK TO Verified 07/15/22 08:32 MY STOMACH ciprofloxacin [From CIPRO] Allergy Intermediate SICK Verified 07/15/22 08:32 doxycycline Allergy Intermediate Dizziness Verified 07/15/22 08:32 levofloxacin [From LEVAQUIN] Allergy Intermediate SICK , Verified 07/15/22 08:32 nausea, dizziness x days flu vaccine Allergy Intermediate Swelling Uncoded 07/15/22 08:32 Review of Systems Review of Systems All other systems are reviewed and are negative Constitutional: Reports as per HPI and Reports no additional constitutional complaints Eyes: Reports as per HPI and Reports no additional eye complaints Reports system reviewed and no additional complaints, except as documented Cardiovascular: Reports as per HPI and Reports no additional cardiovascular complaints Respiratory: Reports as per HPI and Reports no additional respiratory complaints Gastrointestinal: Reports as per HPI and Reports no additional gastrointestinal complaints Genitourinary: Reports no additional female genitourinary complaints Musculoskeletal: Reports no additional musculoskeletal complaints Skin/Breast: Reports system reviewed and no additional complaints, except as docu Psychiatric: Reports no additional psychiatric complaints Endocrine: Reports no additional endocrine complaints Hematologic/Lymphatic: Reports no additional hematologic/lymphatic complaints Allergic/Immunologic: Reports no additional allergic/immunologic complaints Reports system reviewed and no additional complaints, except as documented and Reports Abnormal speech present REPLACED BY [facility] Past Medical History Medical History Asthma Atrial fibrillation Bronchitis CAD (coronary artery disease) Diabetes Diabetic 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 Dyslipidemia GERD (gastroesophageal reflux disease) Hypertension Obesity (BMI 30-39.9) Obesity due to excess calories Osteopenia Paroxysmal atrial fibrillation Type 2 diabetes mellitus with hyperglycemia Vitamin D deficiency Surgical History History of esophagogastroduodenoscopy (EGD) Hx of cataract surgery Hx of colonoscopy Hx of foot surgery Family History Family History Father Heart failure Diabetes mellitus Mother Cholangiocarcinoma Diabetes mellitus Family history of hypertension Family history of heart attack Brother Lung cancer Family/Other Breast cancer Sister Social History Social History Household Members: Children Housing: Apartment Do you presently have visiting nurse or other home services: Yes Alcohol intake: unknown Patient Tobacco Use Status: Former Tobacco user Cigarettes Per Day: 12 Years Smoked: 45 Advance Directives: No Advance Directives Information Provided: Yes Advance Directives Date on File: 12/19/20 service: No Current occupational status: unemployed Physical Exam ED Vital Signs: Vital Signs - 24 hr 08/24/22 00:53 08/24/22 03:22 Temperature 97.6 F Pulse Rate 68 Respiratory Rate 20 20 Blood Pressure 168/59 H Pulse Oximetry 97 BMI result Body Mass Index 37.2 Vital signs have been reviewed as appeared to be correct. Blood pressure normal. Heart rate normal. Respiration rate normal. Temperature normal. Oxygen saturation normal. Appearance: Alert. Oriented X3. No acute distress. Head: Normal external exam. Normocephalic. Atraumatic. No Monzon signs noted. No raccoon eyes noted Eyes: PERRLA. EOMI. Conjunctiva and sclera normal. Eyelids normal. ENT: TM's Normal. Pharynx normal. Uvula midline. Moist mucous membranes. No trismus noted. No drooling noted. No muffled voice noted. Neck: Normal inspection. Neck supple. FROM. No adenopathy. Thyroid Normal. No meningeal signs. No neck mass noted. CVS: Normal heart rate and rhythm. Heart sound normal. No murmurs noted. Pulses normal throughout. Respiratory: No respiratory distress. Painless inspiration. Breath sounds normal. No wheezes/rales/rhonchi noted. Chest nontender. No accessory muscle u elijah noted or decreased air movement noted. Abdomen: Soft and nontender. Bowel sounds normal in all 4 quadrants. No distention noted. No organomegaly noted. No visible injury noted. Rectal exam: Patient declined. Back: No CVA tenderness. Full range of motion noted. Skin: Skin warm and dry. Normal skin color. Normal skin turgor. No rashes/lesions/lacerations noted. Extremities: No lower extremity edema. Extremities exhibit normal range of motion. Extremities nontender. Neuro: Oriented X 3. Cranial nerve exam: II-XII are grossly intact No motor deficit. No sensory deficit. Reflexes normal. Course Course Course Narrative: 62-year-old female came in for evaluation of abdominal pain, found to be hyperglycemic patient is type 2 diabetes received IV insulin and L fluid with improvement of blood sugar, UA/labs/CT abdomen pelvis unrevealing of patient's causing symptoms. Patient overall feels better able to tolerate p.o. intake in the emergency department with nausea vomiting was instructed to return to the emergency room if the pain is worse. Patient reported in the history of bright red blood per rectum known to have hemorrhoids patient is refusing rectal exam patient is scheduled to have colonoscopy next month. Medical Decision Making Differential Diagnosis Differential Diagnoses: The differential diagnosis associated with the presentation includes (Acute appendicitis, diverticulitis, colitis, pancreatitis, renal colic, hyperglycemia, electrolyte abnormalities, severe anemia.) Admission/Observation Consideration of admission/observation: Escalation of care including admission/observation considered Lab Data MDM Lab Attestation statement: I reviewed the patient's lab results. 08/24/22 01:09 08/24/22 01:09 Labs: Lab Results 08/24/22 08/24/22 08/24/22 Range/Units 01:09 01:09 01:09 WBC 6.3 (4.8-10.8) X10*3/uL RBC 3.75 L (4.20-5.50) X10*6/uL Hgb 11.9 L (12.0-16.0) g/dl Hct 35.0 L (37.0-47.0) % MCV 93.3 (80.0-98.0) fL MCH 31.7 (27.0-33.0) pg MCHC 34.0 (31.0-35.0) g/dl RDW 12.6 (11.0-16.0) % Plt Count 230 (160-400) X10*3/uL MPV 8.7 L (9.4-12.3) fL Absolute Nucleated RBC 0.000 (0.0-0.012) X10*3/uL Nucleated RBC % (auto) 0.0 (0.0-0.2) /100WBC Sodium 135 (135-145) mmol/L Potassium 4.4 (3.3-5.1) mmol/L Chloride 102 (96-108) mmol/L Carbon Dioxide 24 (22-29) mmol/L Anion Gap 13 (12-20) BUN 26 H (9-16) mg/dL Creatinine 1.71 H (0.5-1.4) mg/dL Estim Creat Clear Calc 36.5 Estimated GFR 30 Random Glucose 374 H* (60-115) mg/dL Calcium 9.7 (8.4-10.2) mg/dL Total Bilirubin 0.5 (0.0-1.0) mg/dL AST 21 (5-31) U/L ALT 27 (0-31) U/L Alkaline Phosphatase 77 (39-117) U/L Troponin I High Sens < 2.7 (<3.5-17.0) ng/L Total Protein 6.7 (6.5-8.0) g/dL Albumin 3.9 (3.5-5.0) g/dL Lipase 58 (8-78) U/L Urine Color Urine Appearance Urine pH (5.0-9.0) Ur Specific [place] (1.005-1.025) Urine Protein (Neg-Trace) mg/dL Urine Glucose (UA) (Negative) mg/dL Urine Ketones (Negative) mg/dL Urine Blood (Negative) Urine Nitrite (Negative) Ur Leukocyte Esterase (Negative) Urine RBC (0-2) /HPF Urine WBC (0-5) /HPF Ur Squamous Epith Cells (0-2) /HPF Urine Bacteria (None Seen) Hyaline Casts (0-2) /LPF 08/24/22 Range/Units 03:12 WBC (4.8-10.8) X10*3/uL RBC (4.20-5.50) X10*6/uL Hgb (12.0-16.0) g/dl Hct (37.0-47.0) % MCV (80.0-98.0) fL MCH (27.0-33.0) pg MCHC (31.0-35.0) g/dl RDW (11.0-16.0) % Plt Count (160-400) X10*3/uL MPV (9.4-12.3) fL Absolute Nucleated RBC (0.0-0.012) X10*3/uL Nucleated RBC % (auto) (0.0-0.2) /100WBC Sodium (135-145) mmol/L Potassium (3.3-5.1) mmol/L Chloride (96-108) mmol/L Carbon Dioxide (22-29) mmol/L Anion Gap (12-20) BUN (9-16) mg/dL Creatinine (0.5-1.4) mg/dL Estim Creat Clear Calc Estimated GFR Random Glucose (60-115) mg/dL Calcium (8.4-10.2) mg/dL Total Bilirubin (0.0-1.0) mg/dL AST (5-31) U/L ALT (0-31) U/L Alkaline Phosphatase (39-117) U/L Troponin I High Sens (<3.5-17.0) ng/L Total Protein (6.5-8.0) g/dL Albumin (3.5-5.0) g/dL Lipase (8-78) U/L Urine Color Yellow Urine Appearance Clear Urine pH 5.5 (5.0-9.0) Ur Specific [place] 1.020 (1.005-1.025) Urine Protein 30 (1+) H (Neg-Trace) mg/dL Urine Glucose (UA) >=1000 H (Negative) mg/dL Urine Ketones Negative (Negative) mg/dL Urine Blood Negative (Negative) Urine Nitrite Negative (Negative) Ur Leukocyte Esterase Negative (Negative) Urine RBC 0-2 (0-2) /HPF Urine WBC 0-5 (0-5) /HPF Ur Squamous Epith Cells 0-2 (0-2) /HPF Urine Bacteria None Seen (None Seen) Hyaline Casts 0-2 (0-2) /LPF Independent Interpretation I performed an independent interpretation of an: CT Scan (Abdomen and pelvis: No acute intra-abdominal pathology.) Radiology Impression Discussion of test interpretation with radiology: I have reviewed the radiologist's reading. Medications Administered Discontinued Medications Generic Name Dose Route Start Last Admin Trade Name Freq PRN Reason Stop Dose Admin Sodium Chloride 1,000 mls @ 999 mls/hr 08/24/22 02:42 08/24/22 03:45 Ns IV 08/24/22 03:42 Infused .Q1H1M ONE Infusion Insulin Human Regular 5 unit 08/24/22 02:42 08/24/22 03:23 Insulin Regular, Human 100 Unit/Ml 3 Ml Vial IVPUSH 08/24/22 02:43 5 unit ONCE ONE Administration Morphine Sulfate 2 mg 08/24/22 02:42 08/24/22 03:22 Morphine Sulfate 2 Mg/Ml Cartridge IVPUSH 08/24/22 02:43 2 mg ONCE ONE Administration Protocol Discharge Plan Discharge Clinical Impression: Abdominal pain, Hyperglycemia Patient Disposition: Home, Self-Care Instructions: Abdominal Pain (ED) Additional Instructions: Return to the emergency department if abdominal pain is not controlled by Tylenol or getting worse. Prescriptions: No Action cholecalciferol (vitamin D3) 25 mcg (1,000 unit) capsule 25 mcg PO DAILY Qty: 30 11RF pioglitazone 15 mg tablet 15 mg PO BID Qty: 180 2RF metformin 500 mg tablet extended release 24 hr 1,000 mg PO BID Qty: 360 1RF rosuvastatin 40 mg tablet 40 mg PO DAILY Qty: 90 1RF diltiazem HCl [Cardizem CD] 180 mg capsule,extended release 24hr 180 mg PO DAILY 90 Days Qty: 90 3RF Eliquis 5 mg tablet 5 mg PO BID Qty: 60 5RF fluticasone propionate 50 mcg/actuation spray,suspension 1 spray intranasal DAILY albuterol sulfate 2.5 mg /3 mL (0.083 %) solution for nebulization 2.5 mg inhalation QID PRN (Reason: shortness of breath or wheezing) Qty: 75 0RF ofloxacin 0.3 % drops 5 drp otic (ear) left BID 7 Days Qty: 10 0RF albuterol sulfate [Ventolin HFA] 90 mcg/actuation HFA aerosol inhaler 2 puff PO Q4-6H PRN (Reason: Shortness Of Breath) lisinopril 40 mg tablet 40 mg PO DAILY acetaminophen [Tylenol] 325 mg tablet 650 mg PO Q4H PRN (Reason: fever or pain) Qty: 60 0RF (DME) FreeStyle Lite Strips Strip See Rx Instructions Not Applicable DAILY Qty: 10 Rx Instructions: As directed (DME) lancets [FreeStyle Lancets] 28 gauge misc See Rx Instructions .Route Qty: 100 3RF Rx Instructions: As directed 1x/daily ezetimibe 10 mg tablet 10 mg PO DAILY Qty: 30 11RF loratadine 10 mg tablet 10 mg PO DAILY PRN (Reason: Allergy Symptoms) sertraline 100 mg tablet 200 mg PO DAILY PRN (Reason: Anxiety) gabapentin 100 mg capsule 100 mg PO BID Spiriva Respimat 1.25 mcg/actuation mist 2 puff inhalation DAILY
[2022-08-24 02:56] LABS: Lipase 58 U/L (8-78)
[2022-08-24 03:17] LABS: Appearance Urine Clear; Color Urine Yellow; Glucose Urine UA >=1000 mg/dL (Negative); Leukocyte Esterase Urine Negative (Negative); Nitrite Urine Negative (Negative); PH 5.5 (5.0-9.0); UMIC TRIGGER UACC YES; Urine Blood Negative (Negative); Urine Ketones Negative (Negative); Urine Protein 30 (1+) mg/dL (Neg-Trace)
[2022-08-24 03:22] VITALS: RESP 20
[2022-08-24] MEDS: Morphine Sulfate 2 MG/ML CARTRIDGE IVPUSH (03:22)
[2022-08-24] MEDS: Insulin Regular, Human 100 UNIT/ML 3 ML VIAL IVPUSH (03:23)
[2022-08-24 03:25] LABS: Bacteria Urine None Seen (None Seen); Hyaline Casts Urine 0-2 /LPF (0-2); RBC Urine 0-2 /HPF (0-2); Squamous Epithelial Cell Urine 0-2 /HPF (0-2); WBC Urine 0-5 /HPF (0-5)
[2022-08-24] MEDS: 0.9 % Sodium Chloride 1,000 ML 999 ML IV (03:25)
[2022-08-24 05:19] LABS: Glucose, Whole Blood 303 mg/dL (60-115)
--- NOTE | 2022-08-24 05:20 | PC.NURSE ---
pt refused a rectal exam from MD. MD informed pt the importance of the exam, however, pt continues to refuse.
== END 2022-08-24 05:52 | disposition home or self-care (01) ==
PROVIDERS: Emergency Provider Emergency Medicine
DX: R10.30 Lower abdominal pain, unspecified (principal); Z87.891 Personal history of nicotine dependence; E11.65 Type 2 diabetes mellitus with hyperglycemia; I10 Essential (primary) hypertension; I48.0 Paroxysmal atrial fibrillation; E78.5 Hyperlipidemia, unspecified; Z79.02 Long term (current) use of antithrombotics/antiplatelets; Z79.84 Long term (current) use of oral hypoglycemic drugs; Z79.01 Long term (current) use of anticoagulants; Z79.899 Other long term (current) drug therapy
CPT/HCPCS: 36415; 74176; 80053; 81001; 82947; 83690; 84484; 85027; 93005; 96374; 96375; 99284; J2270

== ENCOUNTER → 2022-10-10 08:33 | Outpatient (REF) | payer OTHER, SELFPAY ==
--- NOTE | 2022-10-10 08:36 | CA_ITS ---
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 Normal LV systolic function with grade 1 diastolic dysfunction 2. Normal cardiac valvular Dopplers 3. Normal RV systolic pressure 4. No pericardial effusion Findings Left Ventricle Normal left ventricular size, thickness, and systolic function. The visually estimated ejection fraction is between 60-65%. Spectral Doppler is indicative of an impaired relaxation filling pattern. E/E prime ratio is <8, consistent with normal filling pressures. Evidence suggests grade I (mild) diastolic dysfunction. Right Ventricle Normal right ventricular cavity size and systolic function. Atria Both atria are normal in size. Interatrial shunt cannot be excluded. Aortic Valve The aortic valve was not well visualized. There is no aortic valve stenosis. There is no aortic valve regurgitation. Mitral Valve Normal mitral valve structure and function. There is trace mitral valve regurgitation. There is no mitral valve stenosis. Pulmonic Valve The pulmonic valve is normal. There is no pulmonic valve regurgitation. Tricuspid Valve Normal tricuspid valve structure. There is trace tricuspid valve regurgitation. The right ventricular systolic pressure is normal. The right ventricular systolic pressure is 24 mmHg. Normal right atrial pressure. There is no evidence of pulmonary hypertension. Great Vessels All visible segments of the aorta are normal in size. The pulmonary artery was not well visualized. Venous The inferior vena cava is normal in size and collapses greater than 50% with inspiration. Pericardium/Pleural There is no evidence of pericardial effusion. Measurements 2D Linear Measurements IVSd: 1.20 0.6-0.9/0.6-1.0 cm LVIDd: 3.20 3.9-5.3/4.2-5.9 cm LVIDd Index: 1.66 2.4-3.2/2.2-3.1 cm/m2 LVIDs: 2.20 2.0-3.6 cm LVPWd: 1.20 0.7-1.1 cm Ao Root: 3.00 2.1-3.5 cm LA Diam: 2.70 2.7-3.8/3.0-4.0 cm LAIDs Index: 1.40 1.5-2.3 cm/m2 LV Mass: 148.56 67-162/88-224 g LV Mass Index: 76.98 43-95/49-115 g/m2 LVOT Diam: 2.00 3.0+(-)1.3 cm Mitral Valve MV Pk E: 0.74 MV PK A: 0.85 MV Decel Time: 204.00 E/A: 0.90 E'Lateral: 10.60 E'Medial: 5.00 E/E' Med: 14.80 E/E' Lat: 7.00 PHT: 60.00 MVA PHT: 3.67 Decel Caroline: 3.63 Aortic Valve AoV Pk Ankur: 1.26 AoV Mn Ankur: 0.84 AoV VTI: 0.28 AoV Pk Grad: 6.00 Aov Mn Grad: 3.00 SHILA Cont.VTI: 2.79 LVOT LVOT Pk Ankur: 1.12 LVOT Mn Ankur: 0.73 LVOT VTI: 0.25 LVOT Pk Grad: 5.00 LVOT Mn Grad: 3.00 LVOT Diam: 2.00 LVOT Area: 3.14 Diastolic Function MV Pk E: 0.74 MV Pk A: 0.85 E/A: 0.90 E'Medial: 5.00 E/E' Med: 14.80 E' Laterial: 10.60 E/E' Lat: 7.00 Right Ventricle TAPSE (mm): 21.00 TVS' Ankur: 11.00 Tricuspid Valve TR Pk Ankur: 2.29 TR Pk Grad: 21.00 RA Press: 3.00 RVSP: 24.00 Great Vessels Aorta Ao Root-2D: 3.00 2.0-3.7 cm Ao Asc: 2.60 2.1-3.4 cm Pulmonary Valve PV Pk Ankur: 0.86 Peak PV Grad: 3.00 Updated in Other Vendor System with Status of Final Yovanny Reid MD electronically signed on 10/11/2022 11:47:50 AM with status of Final
== END ==
LOC: HO.CARD 08:33
PROVIDERS: PCP Nurse Practitioner Primary Care; Visit Provider Internal Medicine Cardiovascular Disease
DX: I48.0 Paroxysmal atrial fibrillation (principal)
CPT/HCPCS: 93306

== ENCOUNTER → 2022-10-10 08:36 | Outpatient (BNV) | payer OTHER, SELFPAY | PROVIDERS: PCP Nurse Practitioner Primary Care; Visit Provider Internal Medicine Cardiovascular Disease | DX: I48.0 Paroxysmal atrial fibrillation (principal) | CPT/HCPCS: 93306 ==

== ENCOUNTER 2022-10-18 07:39 | Outpatient (REF) | payer OTHER, SELFPAY ==
[2022-10-18 08:08] LABS: MANUAL DIFF FLAG NO
[2022-10-18 08:43] LABS: Basophils Percent Auto 0.4 % (0-2); Eosinophils Absolute Auto 0.1 X10*3/uL (0.0-0.4); Eosinophils Percent Auto 1.5 % (0-4); Hematocrit 36.6 % (37.0-47.0); Hemoglobin 12.2 g/dl (12.0-16.0); Imm Gran Abs Auto 0.02 X10*3/uL (0.00-0.03); Imm Gran Pct Auto 0.3 % (0.0-0.4); Lymphocytes Absolute Auto 1.2 X10*3/uL (1.2-4.9); Lymphocytes Percent Auto 18.3 % (20-40); Mean Corpuscular HGB Conc 33.3 g/dl (31.0-35.0); Mean Corpuscular Hemoglobin 31.5 pg (27.0-33.0); Mean Corpuscular Volume 94.6 fL (80.0-98.0); Mean Platelet Volume 9.1 fL (9.4-12.3); Monocytes Absolute Auto 0.5 X10*3/uL (0.1-1.2); Monocytes Percent Auto 6.7 % (2-11); Neutrophils Absolute Auto 4.9 x10*3/uL (2.0-8.3); Neutrophils Percent Auto 72.8 % (45-73); Platelet Count 200 X10*3/uL (160-400); Red Blood Count 3.87 X10*6/uL (4.20-5.50); Red Cell Distribution Width 12.8 % (11.0-16.0); White Blood Count 6.7 X10*3/uL (4.8-10.8)
[2022-10-18 09:21] LABS: Appearance Urine Cloudy; Color Urine Yellow; Glucose Urine UA >=1000 mg/dL (Negative); Leukocyte Esterase Urine Small (1+) (Negative); Nitrite Urine Negative (Negative); PH 5.5 (5.0-9.0); Specific Gravity - Urine >= 1.030 (1.005-1.025); UMIC TRIGGER UA YES; Urine Blood Trace (Negative); Urine Ketones Trace mg/dL (Negative); Urine Protein 100 (2+) mg/dL (Neg-Trace)
[2022-10-18 09:28] LABS: Albumin Level 3.8 g/dL (3.5-5.0); Anion Gap 13 (12-20); Blood Urea Nitrogen 25 mg/dL (9-16); Calcium 9.2 mg/dL (8.4-10.2); Carbon Dioxide 22 mmol/L (22-29); Chloride 100 mmol/L (96-108); Estimated Glomerular Filt Rate 33; Phosphorus 2.6 mg/dL (2.7-4.5); Potassium 4.4 mmol/L (3.3-5.1); Sodium 131 mmol/L (135-145)
[2022-10-18 09:35] LABS: Magnesium 1.4 mg/dL (1.6-2.6)
[2022-10-18 09:37] LABS: Bacteria Urine None Seen (None Seen); RBC Urine >20 /HPF (0-2); WBC Urine 21-50 /HPF (0-5)
[2022-10-18 09:54] LABS: Creatinine Urine 215.14 mg/dL; Microalbum/Creatinine Ratio Ur 224.9 ug/mg cr; Total Protein Urine Random 130 mg/dL (<12)
[2022-10-24 14:58] LABS: Calcium (PTHI) 9.2 mg/dL (8.6-10.4); PTHI 58 pg/mL (16-77)
== END 2022-10-18 07:40 | disposition home or self-care (01) ==
LOC: HO.LAB 07:39
PROVIDERS: PCP Nurse Practitioner Primary Care; Visit Provider Internal Medicine Nephrology
DX: I12.9 Hypertensive chronic kidney disease with stage 1 through stage 4 chronic kidney disease, or unspecified chronic kidney disease (principal); E11.22 Type 2 diabetes mellitus with diabetic chronic kidney disease; N18.2 Chronic kidney disease, stage 2 (mild); R42 Dizziness and giddiness; I48.0 Paroxysmal atrial fibrillation; I25.10 Atherosclerotic heart disease of native coronary artery without angina pectoris; R82.90 Unspecified abnormal findings in urine; E55.9 Vitamin D deficiency, unspecified
CPT/HCPCS: 36415; 80051; 81001; 82040; 82043; 82306; 82310; 82565; 83735; 83970; 84100; 84156; 84520; 85025; 87086; 93005; 99212

== ENCOUNTER 2022-10-18 08:17 | Outpatient (AMB) | payer OTHER, SELFPAY ==
[2022-10-18 08:43] VITALS: BP 120/80; PULSE 74; BMI 35.5
--- NOTE | 2022-10-18 08:43 | A.OFFVIS_ITS ---
Intake Vital Signs 10/18/22 08:43 10/18/22 09:31 10/18/22 09:32 10/18/22 09:32 Height 5 ft 3 in Weight 200 lb 9.93 oz BMI 35.5 BP 120/80 132/58 L 124/60 129/67 Blood Pressure Location Lt brachial Lt brachial Lt brachial Lt brachial Position Sitting Supine Sitting Standing Pulse 74 75 73 80 Intake Visit Reasons: 6 mth f/up echo Intake Note: 6 month follow-up after echo feeling good Epic Radiant Analyst Required: No Allergies ibuprofen [IBUPROFEN] Allergy (Severe, Verified 07/15/22 08:32) SICK TO MY STOMACH ciprofloxacin [From CIPRO] Allergy (Intermediate, Verified 07/15/22 08:32) SICK doxycycline Allergy (Intermediate, Verified 07/15/22 08:32) Dizziness levofloxacin [From LEVAQUIN] Allergy (Intermediate, Verified 07/15/22 08:32) SICK , nausea, dizziness x days flu vaccine Allergy (Intermediate, Uncoded 07/15/22 08:32) Swelling Medication List - Last Reconciled 10/18/22 by Yovanny Reid MD acetaminophen (Tylenol) 650 mg (2 x 325 mg) PO Q4H PRN albuterol sulfate 2.5 mg (3 mL) inhalation QID PRN albuterol sulfate 90 mcg/actuation (Ventolin HFA) 2 puffs PO Q4-6H PRN apixaban (Eliquis) 5 mg PO BID blood sugar diagnostic (FreeStyle Lite Strips) As directed cholecalciferol (vitamin D3) 25 mcg PO DAILY diltiazem HCl (Cardizem CD) 180 mg PO DAILY 90 days ezetimibe 10 mg PO DAILY gabapentin 100 mg PO BID lancets (FreeStyle Lancets) As directed 1x/daily lisinopril 40 mg PO DAILY loratadine 10 mg PO DAILY PRN metformin ER 1,000 mg (2 x 500 mg) PO BID pioglitazone 15 mg PO BID rosuvastatin 40 mg PO DAILY sertraline 200 mg PO DAILY PRN tiotropium bromide 1.25 mcg/actuation (Spiriva Respimat) 2 puffs inhalation DAILY HPI HPI Comments History of Present Illness Details Zee comes for follow-up. She says she does not feel well today. She feels dizzy. She denies any tinnitus or hearing loss. She says yesterday she jumped in her pool in the backyard and there was a animal which was riding in the pool. She said she right away got out of the water but she says since then she is having rash on her belly. She denies any fever or chills. She has some sore throat. She denies any rapid heart rate or palpitations. Denies any heart failure symptoms. Denies any anginal symptoms. Takes all her medications. Denies any bleeding issues or neurologic events. FORMERLY [facility], 1928–1983 Medical History Asthma Atrial fibrillation Bronchitis CAD (coronary artery disease) Diabetes Diabetic 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 Dyslipidemia GERD (gastroesophageal reflux disease) Hypertension Obesity (BMI 30-39.9) Obesity due to excess calories Osteopenia Paroxysmal atrial fibrillation Type 2 diabetes mellitus with hyperglycemia Vitamin D deficiency Surgical History History of esophagogastroduodenoscopy (EGD) Hx of cataract surgery Hx of colonoscopy Hx of foot surgery Family History Father Heart failure Diabetes mellitus Mother Cholangiocarcinoma Diabetes mellitus Family history of hypertension Family history of heart attack Brother Lung cancer Family/Other Breast cancer Sister Social History Household Members: Children Housing: Apartment Do you presently have visiting nurse or other home services: Yes Alcohol intake: unknown Patient Tobacco Use Status: Former Tobacco user Cigarettes Per Day: 12 Years Smoked: 45 Advance Directives Date on File: 12/19/20 service: No Current occupational status: unemployed Review of Systems Const Denies chills, Denies fatigue, Denies fever(s), Denies frequent falls, Denies weakness, Denies weight gain and Denies weight loss ENT Denies dizziness Card Denies chest pain, Denies leg edema, Denies lightheadedness, Denies palpitations, Denies dyspnea, Denies dyspnea on exertion, Denies orthopnea and Denies other (loss of consciousness) Resp Denies cough, Denies dyspnea and Denies dyspnea on exertion GI Denies hematochezia and Denies change in stool character Musc Denies abnormal gait, Denies muscle weakness, Denies numbness, Denies radiating pain into limb and Denies tingling Neuro Denies abnormal gait, Denies dizziness, Denies frequent falls, Denies numbness, Denies tingling and Denies weakness Endo Denies fatigue and Denies palpitations Physical Exam Vital Signs: Last Vital Signs Pulse 74 10/18/22 08:43 BP 120/80 10/18/22 08:43 BMI result Body Mass Index 35.5 Const General: cooperative, no acute distress, alert and awake Orientation/consciousness: patient oriented x3 Neck Neck: Yes normal visual inspection and Yes no JVD Resp Effort & Inspection: normal respiratory effort, able to speak in complete sentences and not labored Auscultation: clear to auscultation bilaterally, no crackles, no rales, no rhonchi and no wheezes Cardio Palpation: normal PMI Rate: regular rate Rhythm: regular rhythm Heart sounds: S1 normal heart sound present and S2 normal heart sound present GI Inspection: Yes normal to inspection Neuro General: patient oriented x3 Extrem General: Yes normal to inspection and No edema Office Procedures EKG Details: EKG shows normal sinus rhythm with poor R-wave progression, most likely placement with no acute ST T wave changes. [id number], Complete Assessment & Plan Assessment & Plan (1) Dizziness: Code(s): R42 - Dizziness and giddiness Plan: Patient complains of dizziness since her episode. There is no clear cardiac evidence of any issues with no evidence of arrhythmias so orthostatic hypertension. Advised to maintain adequate hydration. She has a follow-up appointment today with you. (2) Paroxysmal atrial fibrillation: Code(s): I48.0 - Paroxysmal atrial fibrillation Plan: Paroxysmal atrial fibrillation which has remained control and stable without any recurrent episodes. Continue current Cardizem therapy. Continue full oral anticoagulation, currently on Eliquis 5 mg b.i.d.. CHADSVASc score of 4. Continue participate in weight loss program. Avoidance of stimulants was discussed. Continue aggressive blood pressure control which is currently well optimized. (3) CAD (coronary artery disease): Code(s): I25.10 - Atherosclerotic heart disease of hughes coronary artery without angina pectoris Plan: CAD stable with no symptoms angina. Continue aggressive medical therapy. Currently on full oral anticoagulation with Eliquis. Continue aggressive blood pressure control currently which is well optimized continue dual therapy with ezetimibe and rosuvastatin with goal LDL closer to 60 mg/dL. Aggressive control of diabetes currently under your care with goal hemoglobin A1c less than 7%. Will follow up in the clinic in 6 months time, sooner p.r.n.. Thank you for allowing me to partake in her care Coding Level of Care Code Est Pt Level 4 (54243) Diagnoses Dizziness R42 Paroxysmal atrial fibrillation I48.0 CAD (coronary artery disease) I25.10 CPT Codes EKG - CPT: 08513-[id number], Complete ([id number])
[2022-10-18 09:31] VITALS: BP 132/58; PULSE 75
[2022-10-18 09:32] VITALS: BP 124/60; BP 129/67; PULSE 73; PULSE 80
== END 2022-10-18 09:33 | disposition home or self-care (01) ==
PROVIDERS: Visit Provider Internal Medicine Cardiovascular Disease
DX: R42 Dizziness and giddiness (principal); I48.0 Paroxysmal atrial fibrillation; I25.10 Atherosclerotic heart disease of native coronary artery without angina pectoris
CPT/HCPCS: 93010; 99214

== ENCOUNTER 2022-10-18 13:49 | Emergency (ER) | payer OTHER, SELFPAY ==
[2022-10-18 14:00] VITALS: BP 156/75; BP 158/68; PULSE 75; PULSE 80; RESP 18; TEMP 36.6; O2SAT 97; O2SAT 98; BMI 36.8
--- NOTE | 2022-10-18 15:57 | ED_ITS ---
HPI - Recheck/Abnormal Lab/Rx General Chief Complaint: Recheck/Abnormal Lab/Rx Stated Complaint: BS high per EMS insulin given, no improvement Time Seen by Provider: 10/18/22 14:30 Source: patient and family (Son) Mode of arrival: ambulatory History of Present Illness HPI narrative: 62-year-old female who is a known diabetic is referred in by her primary care provider, Dr. elam, who stated that she had high sugar levels, she was also g iven to doses of subcutaneous insulin at the office but he wished for her to come to the emergency room for further evaluation. Patient also reports a yeast infection but says that she is currently treating this herself with [id number] medications. In addition, she reports a rash that is itchy in nature to her anterior abdominal wall and there is some concern for possible tick exposure. Related Data Home Medications Medication Instructions Recorded Confirmed loratadine 10 mg tablet 10 mg PO DAILY PRN Allergy Symptoms 02/26/20 10/18/22 sertraline 100 mg tablet 200 mg PO DAILY PRN Anxiety 02/26/20 10/18/22 albuterol sulfate 90 mcg/actuation 2 puff PO Q4-6H PRN Shortness Of 12/28/20 10/18/22 aerosol inhaler (Ventolin HFA) Breath lisinopril 40 mg tablet 40 mg PO DAILY 04/20/21 10/18/22 blood sugar diagnostic (FreeStyle #10 ea 06/23/21 04/26/22 Lite Strips) gabapentin 100 mg capsule 100 mg PO BID 01/21/22 10/18/22 tiotropium bromide 1.25 2 puff inhalation DAILY 01/21/22 10/18/22 mcg/actuation mist for inhalation (Spiriva Respimat) Previous Rx's Medication Instructions Recorded cholecalciferol (vitamin D3) 25 25 mcg PO DAILY #30 caps 04/04/21 mcg (1,000 unit) capsule ezetimibe 10 mg tablet 10 mg PO DAILY #30 tabs 06/23/21 lancets 28 gauge (FreeStyle #100 ea 06/23/21 Lancets) pioglitazone 15 mg tablet 15 mg PO BID #180 tabs 09/23/21 acetaminophen 325 mg tablet 650 mg PO Q4H PRN fever or pain 12/13/21 (Tylenol) #60 tabs metformin 500 mg tablet,extended 1,000 mg PO BID #360 tabs 12/14/21 release 24 hr rosuvastatin 40 mg tablet 40 mg PO DAILY #90 tabs 12/14/21 albuterol sulfate 2.5 mg/3 mL 2.5 mg (3 mL) inhalation QID PRN 01/08/22 (0.083 %) solution for nebulization shortness of breath or wheezing #75 mL diltiazem HCl 180 mg 180 mg PO DAILY 90 days #90 caps 06/20/22 capsule,extended release 24 hr (Cardizem CD) apixaban 5 mg tablet (Eliquis) 5 mg PO BID #60 tabs 08/01/22 amoxicillin 500 mg capsule 500 mg PO BID 14 days #28 caps 10/18/22 Allergies Allergy/AdvReac Type Severity Reaction Status Date / Time ibuprofen [IBUPROFEN] Allergy Severe SICK TO Verified 07/15/22 08:32 MY STOMACH ciprofloxacin [From CIPRO] Allergy Intermediate SICK Verified 07/15/22 08:32 doxycycline Allergy Intermediate Dizziness Verified 07/15/22 08:32 levofloxacin [From LEVAQUIN] Allergy Intermediate SICK , Verified 07/15/22 08:32 nausea, dizziness x days flu vaccine Allergy Intermediate Swelling Uncoded 07/15/22 08:32 Review of Systems Review of Systems: Pertinent positives and negatives as stated in HPI [facility] Past Medical History Source: nursing notes reviewed Medical History Asthma Atrial fibrillation Bronchitis CAD (coronary artery disease) Diabetes Diabetic 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 Dyslipidemia GERD (gastroesophageal reflux disease) Hypertension Obesity (BMI 30-39.9) Obesity due to excess calories Osteopenia Paroxysmal atrial fibrillation Type 2 diabetes mellitus with hyperglycemia Vitamin D deficiency Surgical History History of esophagogastroduodenoscopy (EGD) Hx of cataract surgery Hx of colonoscopy Hx of foot surgery Family History Family History Father Heart failure Diabetes mellitus Mother Cholangiocarcinoma Diabetes mellitus Family history of hypertension Family history of heart attack Brother Lung cancer Family/Other Breast cancer Sister Social History Social History Household Members: Children Housing: Apartment Do you presently have visiting nurse or other home services: Yes Alcohol intake: current Alcohol intake frequency: a few times a month Alcohol type: beer Patient Tobacco Use Status: Former Tobacco user Cigarettes Per Day: 12 Years Smoked: 45 Smoked in Last 30 Days: No Use of substances other than those prescribed or required for medical reasons: No Advance Directives: Yes Advance Directives Information Provided: Yes Advance Directives on File: No Advance Directives Date on File: 12/19/20 Patient : No service: No Current occupational status: unemployed Physical Exam Vital Signs: Vital Signs: Last Vital Signs Temp 97.8 F 10/18/22 14:00 Pulse 80 10/18/22 14:00 Resp 18 10/18/22 14:00 BP 158/68 H 10/18/22 14:00 Pulse Ox 97 10/18/22 14:00 O2 Del Method Room Air 10/18/22 14:00 BMI result Body Mass Index 36.8 VITAL SIGNS: Reviewed. GENERAL: Well developed, well nourished, in no acute distress. HEAD: Normocephalic/atraumatic EYES: PERRLA, EOMI EARS: Ext canals without abnormality, TMs non-bulging and non-erythematous NOSE: Nares patent bilateral OROPHARYNX: no oral lesions noted, posterior pharynx clear NECK: Supple, no adenopathy LUNGS: Normal breath sounds. No adventitious sounds or accessory muscle use. SpO2<97> CARDIOVASCULAR: Regular rate and rhythm without noted murmurs, no JVD or lower extremity edema. ABDOMEN: Soft, non-tender, non-distended with bowel sounds, there are 2 large red rings to anterior abdomen without induration. MUSCULOSKELETAL: No tenderness, deformities, or effusions noted on gross inspection. EXTREMITIES: No cyanosis, clubbing or edema. SKIN: Inspection of the skin reveals no rashes NEUROLOGIC: Alert and oriented x 4. Strength and sensation to light touch were grossly intact x 4. Medical Decision Making Medical Decision Making MDM Narrative: This is a 62-year-old female with history and clinical presentation of known diabetes, she did receive medication at her primary care office and on arrival here to the emergency room initial point of care glucose does appear to be improved, she denies any fevers, chills, nausea, vomiting or diarrhea and is treating her yeast infection with [id number] medication which is appropriate. I did peer financial counselor the patient that in part the yeast infection is a ssociated with her uncontrolled sugar levels which she informed me has been due to changes implemented since April of this year. She denies any increase weight gain or changes in diet that may have contributed to her sugar levels becoming uncontrolled. She does tell me that today she was started on long- acting insulin and her metformin and glipizide were initiated. She also tells me that there were some concerns regarding her renal function but I reviewed her renal function and it appears to be chronically stable. This is all lab work that she had performed earlier in the day and I did not feel is necessary to repeat lab work. Patient otherwise appears well there is a noted pseudohyponatremia but again otherwise the kidney function appears to be chronically stable and I did replete the lobe magnesium with 800 mg of magnesium oxide. I will repeat urinalysis but on review of prior urinalysis from the morning it appears that patient had wbc's although this looks like a dirty urine. Will repeat point of care, send off a tick panel but empirically treat patient with doxycycline and instructed to follow-up with her primary care doctor to follow- up on the tick panel. However based on laboratory results I have low clinical suspicion for tick infection and suspect that the rings may be yeast in nature. Differential Diagnosis Differential Diagnoses: The differential diagnosis associated with the presentation includes Please see the discussion above Lab Data MDM Lab Attestation statement: I reviewed the patient's lab results. Please see the discussion above External Record Review External record reviewed: Outpatient record and Prior outpatient labs Discharge Plan Discharge Clinical Impression: Hyperglycemia, Skin rash, CKD (chronic kidney disease), Hypomagnesemia Patient Disposition: Home, Self-Care Instructions: Tick Bite (ED) Additional Instructions: 1. Resume all home medications as prescribed to include the new adjustments in your diabetic medication. Increase the amount of water intake. 2. You have been started on amoxicillin which is the treatment for possible tick exposure. You will need to follow-up on the laboratory results and if they are negative you can stop the amoxicillin. 3. Continue to treat yourself for your yeast infection this should improve with better sugar control as well. 4. Please follow-up with your primary care doctor as well as your scheduled appointment with nephrology (your kidney doctor). Return to the ER for any worsening symptoms. Prescriptions: New amoxicillin 500 mg capsule 500 mg PO BID 14 Days Qty: 28 0RF No Action cholecalciferol (vitamin D3) 25 mcg (1,000 unit) capsule 25 mcg PO DAILY Qty: 30 11RF pioglitazone 15 mg tablet 15 mg PO BID Qty: 180 2RF metformin 500 mg tablet extended release 24 hr 1,000 mg PO BID Qty: 360 1RF rosuvastatin 40 mg tablet 40 mg PO DAILY Qty: 90 1RF diltiazem HCl [Cardizem CD] 180 mg capsule,extended release 24hr 180 mg PO DAILY 90 Days Qty: 90 3RF Eliquis 5 mg tablet 5 mg PO BID Qty: 60 5RF albuterol sulfate 2.5 mg /3 mL (0.083 %) solution for nebulization 2.5 mg inhalation QID PRN (Reason: shortness of breath or wheezing) Qty: 75 0RF albuterol sulfate [Ventolin HFA] 90 mcg/actuation HFA aerosol inhaler 2 puff PO Q4-6H PRN (Reason: Shortness Of Breath) lisinopril 40 mg tablet 40 mg PO DAILY acetaminophen [Tylenol] 325 mg tablet 650 mg PO Q4H PRN (Reason: fever or pain) Qty: 60 0RF (DME) FreeStyle Lite Strips Strip See Rx Instructions Not Applicable DAILY Qty: 10 Rx Instructions: As directed (DME) lancets [FreeStyle Lancets] 28 gauge misc See Rx Instructions .Route Qty: 100 3RF Rx Instructions: As directed 1x/daily ezetimibe 10 mg tablet 10 mg PO DAILY Qty: 30 11RF loratadine 10 mg tablet 10 mg PO DAILY PRN (Reason: Allergy Symptoms) sertraline 100 mg tablet 200 mg PO DAILY PRN (Reason: Anxiety) gabapentin 100 mg capsule 100 mg PO BID Spiriva Respimat 1.25 mcg/actuation mist 2 puff inhalation DAILY Referrals: Areli Elam, [employer] [Primary Care Provider] -
[2022-10-18 16:00] LABS: Appearance Urine Clear; Color Urine Yellow; Glucose Urine UA >=1000 mg/dL (Negative); Leukocyte Esterase Urine Moderate (2+) (Negative); Nitrite Urine Negative (Negative); UMIC TRIGGER UACC YES; Urine Blood Trace (Negative); Urine Ketones Negative (Negative); Urine Protein 30 (1+) mg/dL (Neg-Trace)
[2022-10-18 16:09] VITALS: BP 131/66; PULSE 82; RESP 16; TEMP 36.5; O2SAT 97
[2022-10-18 16:12] LABS: Glucose, Whole Blood 210 mg/dL (60-115)
[2022-10-18] MEDS: Magnesium Oxide 400 MG TABLET 800 MG PO (16:14)
--- NOTE | 2022-10-18 16:50 | PC.NURSE ---
Pt came in with A-fib with RVR, HR 172, Cardizem given with positive effect HR 113
[2022-10-18 17:29] LABS: Bacteria Urine None Seen (None Seen); Hyaline Casts Urine 0-2 /LPF (0-2); UACC Culture Trigger YES; WBC Urine >50 /HPF (0-5)
[2022-10-20 23:09] LABS: A. Phagocytphilium DNA,RT-PCR NOT DETECTED (NOT DETECTED); Babesia Microti DNA, RT-PCR DETECTED (NOT DETECTED); Borrelia Miyamotoi,DNA RT-PCR NOT DETECTED (NOT DETECTED); E.Chaffeensis DNA RT-PCR NOT DETECTED (NOT DETECTED); Lyme(Borrelia ssp)DNA RT-PCR NOT DETECTED (NOT DETECTED)
== END 2022-10-18 17:02 | disposition home or self-care (01) ==
PROVIDERS: Emergency Provider Student in an Organized Health Care Education/Training Program; PCP Nurse Practitioner Primary Care
DX: E83.42 Hypomagnesemia (principal); R21 Rash and other nonspecific skin eruption; E11.65 Type 2 diabetes mellitus with hyperglycemia; Z79.4 Long term (current) use of insulin; Z79.899 Other long term (current) drug therapy
CPT/HCPCS: 36415; 81001; 81003; 82947; 87798; 87801; 99283; 99284

== ENCOUNTER 2022-10-24 07:52 | Inpatient (IN) | payer OTHER, SELFPAY ==
--- NOTE | ~2022-10-24 | US_ITS ---
EXAMINATION: US KIDNEYS WITH RENAL ARTERY DOPPLER CLINICAL INFORMATION: Acute kidney injury. COMPARISON: CT abdomen/pelvis 08/24/2022 renal ultrasound 06/30/2022. TECHNIQUE: Ultrasound of the kidneys was performed along with color flow Doppler imaging and velocity measurements in the proximal mid and distal renal arteries. Aortic velocities were measured and renal/aortic ratios were calculated. Segmental resistive indices were measured. FINDINGS: The kidneys appeared normal aside from the presence of some Bosniak class I cysts with the right kidney measuring 10.8 x 5.3 x 5.6 cm and the left kidney measuring 11.2 x 5.5 x 5.2 cm. Linear calcification in the right kidney most likely a vascular calcification No solid renal masses, renal stones or hydronephrosis is seen. Renal cortical thickness appears normal. Velocity measurements in the proximal mid and distal renal arteries elevated on the right with all 3 velocities over the normal threshold of 180 cm/s with maximal velocity of 201 cm/s proximally. On the left, all velocities are within the normal range, under 180 cm/s. Velocity in the aorta is normal at 80 cm/s and, the renal aortic ratio on the right is 2.5 and on the left is 2.2, both within normal limits. Segmental resistive indices are mildly elevated bilaterally with a high of 0.9 on each side (upper limits of normal is 0.8). The bladder was not examined. US/US renal doppler IMPRESSION: 1. Elevated velocities throughout the right renal artery with normal renal aortic ratio. CT angiography could be performed for further evaluation to exclude a renal artery stenosis. Velocities on the left are normal.. 2. Mildly elevated segmental resistive indices bilaterally suggesting medical renal disease. 3. Benign Bosniak class I renal cysts require no further followup.
[2022-10-24 08:01] VITALS: BP 128/43; PULSE 69; RESP 18; TEMP 36.3; O2SAT 97; BMI 36.5
--- NOTE | 2022-10-24 08:14 | ECG_ITS ---
Test Reason : cp Blood Pressure : / mmHG Vent. Rate : 069 BPM Atrial Rate : 069 BPM P-R Int : 190 ms QRS Dur : 078 ms QT Int : 376 ms P-R-T Axes : 048 007 041 degrees QTc Int : 402 ms Normal sinus rhythm Cannot rule out Anterior infarct , age undetermined Abnormal ECG When compared to the previous EKG of Poor R wave progression is seen Referred By: Denver Patel Electronically Signed By:JANNETH BAIG MD
[2022-10-24 08:34] LABS: MANUAL DIFF FLAG NO
[2022-10-24 08:37] LABS: Basophils Percent Auto 0.4 % (0-2); Eosinophils Absolute Auto 0.1 X10*3/uL (0.0-0.4); Eosinophils Percent Auto 1.8 % (0-4); Hematocrit 33.6 % (37.0-47.0); Imm Gran Abs Auto 0.01 X10*3/uL (0.00-0.03); Imm Gran Pct Auto 0.2 % (0.0-0.4); Lymphocytes Absolute Auto 1.2 X10*3/uL (1.2-4.9); Lymphocytes Percent Auto 26.8 % (20-40); Mean Corpuscular HGB Conc 32.7 g/dl (31.0-35.0); Mean Corpuscular Hemoglobin 31.3 pg (27.0-33.0); Mean Corpuscular Volume 95.5 fL (80.0-98.0); Monocytes Absolute Auto 0.6 X10*3/uL (0.1-1.2); Monocytes Percent Auto 13.2 % (2-11); Neutrophils Absolute Auto 2.6 x10*3/uL (2.0-8.3); Neutrophils Percent Auto 57.6 % (45-73); Platelet Count 154 X10*3/uL (160-400); Red Blood Count 3.52 X10*6/uL (4.20-5.50); Red Cell Distribution Width 13.9 % (11.0-16.0); White Blood Count 4.6 X10*3/uL (4.8-10.8)
[2022-10-24] MEDS: 0.9 % Sodium Chloride 1,000 ML 999 ML IV ×2 (08:38→12:16)
[2022-10-24] MEDS: Metoclopramide HCl 10 MG/2 ML VIAL IVPUSH (08:38)
--- NOTE | 2022-10-24 08:48 | ED_ITS ---
HPI - General Adult General Chief complaint: Abdominal Pain Stated complaint: Vomiting/Weakness Time Seen by Provider: 10/24/22 08:04 Source: patient Mode of arrival: ambulatory Limitations: no limitations History of Present Illness HPI narrative: 62-year-old female presents with nausea vomiting. Patient was reportedly here approximately 1 week ago for similar symptoms as well as hyperglycemia. She denies any fevers or chills. No nausea vomiting has been constant but has been nonbilious nonbloody. She denies any via diarrhea or blood in her stools. She reports a 15 lb weight loss. She describes her symptoms as severe. There is no clear relieving or exacerbating features. She does have a vague abdominal pain associated with nausea vomiting. She also complains of some generalized myalgias. She denies any fevers, chills, cough or mucus production. Symptoms have been constant for quite some time. Related Data Home Medications Medication Instructions Recorded Confirmed loratadine 10 mg tablet 10 mg PO DAILY PRN Allergy Symptoms 02/26/20 10/18/22 sertraline 100 mg tablet 200 mg PO DAILY PRN Anxiety 02/26/20 10/18/22 albuterol sulfate 90 mcg/actuation 2 puff PO Q4-6H PRN Shortness Of 12/28/20 10/18/22 aerosol inhaler (Ventolin HFA) Breath lisinopril 40 mg tablet 40 mg PO DAILY 04/20/21 10/18/22 blood sugar diagnostic (FreeStyle #10 ea 06/23/21 04/26/22 Lite Strips) gabapentin 100 mg capsule 100 mg PO BID 01/21/22 10/18/22 tiotropium bromide 1.25 2 puff inhalation DAILY 01/21/22 10/18/22 mcg/actuation mist for inhalation (Spiriva Respimat) Previous Rx's Medication Instructions Recorded cholecalciferol (vitamin D3) 25 25 mcg PO DAILY #30 caps 04/04/21 mcg (1,000 unit) capsule ezetimibe 10 mg tablet 10 mg PO DAILY #30 tabs 06/23/21 lancets 28 gauge (FreeStyle #100 ea 06/23/21 Lancets) pioglitazone 15 mg tablet 15 mg PO BID #180 tabs 09/23/21 acetaminophen 325 mg tablet 650 mg PO Q4H PRN fever or pain 12/13/21 (Tylenol) #60 tabs metformin 500 mg tablet,extended 1,000 mg PO BID #360 tabs 12/14/21 release 24 hr rosuvastatin 40 mg tablet 40 mg PO DAILY #90 tabs 12/14/21 albuterol sulfate 2.5 mg/3 mL 2.5 mg (3 mL) inhalation QID PRN 01/08/22 (0.083 %) solution for nebulization shortness of breath or wheezing #75 mL diltiazem HCl 180 mg 180 mg PO DAILY 90 days #90 caps 06/20/22 capsule,extended release 24 hr (Cardizem CD) apixaban 5 mg tablet (Eliquis) 5 mg PO BID #60 tabs 08/01/22 amoxicillin 500 mg capsule 500 mg PO BID 14 days #28 caps 10/18/22 Allergies Allergy/AdvReac Type Severity Reaction Status Date / Time ibuprofen [IBUPROFEN] Allergy Severe SICK TO Verified 07/15/22 08:32 MY STOMACH ciprofloxacin [From CIPRO] Allergy Intermediate SICK Verified 07/15/22 08:32 doxycycline Allergy Intermediate Dizziness Verified 07/15/22 08:32 levofloxacin [From LEVAQUIN] Allergy Intermediate SICK , Verified 07/15/22 08:32 nausea, dizziness x days flu vaccine Allergy Intermediate Swelling Uncoded 07/15/22 08:32 Review of Systems Review of Systems: CONSTITUTIONAL: Denies weight loss, fever and chills. HEENT: Denies changes in vision and hearing. RESPIRATORY: Denies SOB and cough. CV: Denies palpitations no CP. GI: + abdominal pain, nausea, vomiting : Denies dysuria and urinary frequency. MSK: Denie+s myalgia and joint pain. SKIN: Denies rash and pruritus. NEUROLOGICAL: Denies headache and syncope. PSYCHIATRIC: Denies recent changes in mood. Denies anxiety and depression. All other ROS are negative unless in HPI PMFSH Past Medical History Medical History Asthma Atrial fibrillation Bronchitis CAD (coronary artery disease) Diabetes Diabetic 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 Dyslipidemia GERD (gastroesophageal reflux disease) Hypertension Obesity (BMI 30-39.9) Obesity due to excess calories Osteopenia Paroxysmal atrial fibrillation Type 2 diabetes mellitus with hyperglycemia Vitamin D deficiency Surgical History History of esophagogastroduodenoscopy (EGD) Hx of cataract surgery Hx of colonoscopy Hx of foot surgery Family History Family History Father Heart failure Diabetes mellitus Mother Cholangiocarcinoma Diabetes mellitus Family history of hypertension Family history of heart attack Brother Lung cancer Family/Other Breast cancer Sister Social History Social History Household Members: Children Housing: Apartment Do you presently have visiting nurse or other home services: Yes Alcohol intake: current Alcohol intake frequency: a few times a month Alcohol type: beer Patient Tobacco Use Status: Former Tobacco user Cigarettes Per Day: 12 Years Smoked: 45 Advance Directives: Yes Advance Directives on File: Yes Advance Directives Date on File: 10/19/22 service: No Current occupational status: unemployed Physical Exam ED Vital Signs: Vital Signs - 24 hr 10/24/22 08:01 10/24/22 10:36 10/24/22 10:56 Temperature 97.3 F Pulse Rate 69 75 67 Respiratory Rate 18 16 16 Blood Pressure 128/43 L 105/52 L Pulse Oximetry 97 97 Oxygen Delivery Method Room Air Aerosol Mask Oxygen Flow Rate 7 BMI result Body Mass Index 36.5 GEN: Well developed, no acute distress, alert, oriented HEENT: Normocephalic, atraumatic, normal external ears, nose appears normal, no oropharyngeal edema or exudates Eyes: Normal to appearance Neck: Supple, no lymphadenopathy Respiratory: Talks in complete sentences, no respiratory distress, clear to auscultation bilaterally Cardiovascular: Regular rate and rhythm, no murmurs rubs or gallops Abdomen: Soft, nontender, nondistended, no guarding, no rebound Back: No CVA tenderness Extremities: No clubbing cyanosis or edema Neurologic: No focal neurologic deficits, cranial nerves 2-12 intact, strength is 5/5 bilaterally Skin: No rash Course Reevaluation(s) Reevaluation #1: BRAYAN - contacted nephrology, Dr. Beavers, awiting to hear back. Started IVF, albuterol, lokelma. Will d/w hospitalist for admission, Time: 10:54 Medications Administered Discontinued Medications Generic Name Dose Route Start Last Admin Trade Name Freq PRN Reason Stop Dose Admin Albuterol Sulfate 10 mg 10/24/22 10:16 10/24/22 10:34 Albuterol Sulfate (0.083%) 2.5 Mg/3 Ml Vial.Neb INHALE 10/24/22 10:17 10 mg ONCE ONE Administration Sodium Chloride 1,000 mls @ 999 mls/hr 10/24/22 08:15 10/24/22 10:49 Ns IV 10/24/22 09:15 Infused .Q1H1M AMANDA Infusion Metoclopramide HCl 10 mg 10/24/22 08:13 10/24/22 08:38 Metoclopramide Hcl 10 Mg/2 Ml Vial IVPUSH 10/24/22 08:14 10 mg ONCE ONE Administration Sodium Zirconium Cyclosilicate 10 gm 10/24/22 10:16 10/24/22 10:49 Sodium Zirconium Cyclosilicate 10 Gm Powd.Pack PO 10/24/22 10:17 10 gm ONCE ONE Administration Medical Decision Making Medical Decision Making MDM Narrative: 62-year-old female presents with vague abdominal pain, nausea, vomiting, no diarrhea. Examination is benign. Differential diagnosis includes gastroparesis, IBS, IBD, doubt obstruction or ileus. Doubt infectious etiology. Order routine laboratory analysis, provide patient with IV fluids and Reglan. Will re-evaluate the patient following workup. If she has significant dehydration or acute electrolyte abnormalities, patient may warrant hospitalization. Differential Diagnosis Differential Diagnoses: The differential diagnosis associated with the presentation includes (See above) Admission/Observation Consideration of admission/observation: Escalation of care including admission/observation considered Lab Data MDM Lab Attestation statement: I reviewed the patient's lab results. 10/24/22 08:29 10/24/22 08:29 Labs: Lab Results 10/24/22 10/24/22 10/24/22 Range/Units 08:29 08:29 09:25 WBC 4.6 L (4.8-10.8) X10*3/uL RBC 3.52 L (4.20-5.50) X10*6/uL Hgb 11.0 L (12.0-16.0) g/dl Hct 33.6 L (37.0-47.0) % MCV 95.5 (80.0-98.0) fL MCH 31.3 (27.0-33.0) pg MCHC 32.7 (31.0-35.0) g/dl RDW 13.9 (11.0-16.0) % Plt Count 154 L (160-400) X10*3/uL MPV 9.0 L (9.4-12.3) fL Immature Gran % (Auto) 0.2 (0.0-0.4) % Neut % (Auto) 57.6 (45-73) % Lymph % (Auto) 26.8 (20-40) % [place] % (Auto) 13.2 H (2-11) % Eos % (Auto) 1.8 (0-4) % Baso % (Auto) 0.4 (0-2) % Lymph # (Auto) 1.2 (1.2-4.9) X10*3/uL [place] # (Auto) 0.6 (0.1-1.2) X10*3/uL Eos # (Auto) 0.1 (0.0-0.4) X10*3/uL Baso # (Auto) 0.0 (0.0-0.2) X10*3/uL Abs Immat Gran (auto) 0.01 (0.00-0.03) X10*3/uL Absolute Neuts (auto) 2.6 (2.0-8.3) x10*3/uL Absolute Nucleated RBC 0.000 (0.0-0.012) X10*3/uL Nucleated RBC % (auto) 0.0 (0.0-0.2) /100WBC Sodium 133 L (135-145) mmol/L Potassium 5.6 H D (3.3-5.1) mmol/L Chloride 107 (96-108) mmol/L Carbon Dioxide 20 L (22-29) mmol/L Anion Gap 12 (12-20) BUN 49 H (9-16) mg/dL Creatinine 3.56 H (0.5-1.4) mg/dL Estim Creat Clear Calc 17.3 Estimated GFR 13 Random Glucose 226 H (60-115) mg/dL Calcium 10.0 D (8.4-10.2) mg/dL Total Bilirubin 0.9 (0.0-1.0) mg/dL AST 69 H (5-31) U/L ALT 74 H (0-31) U/L Alkaline Phosphatase 77 (39-117) U/L Total Protein 7.4 (6.5-8.0) g/dL Albumin 3.9 (3.5-5.0) g/dL Lipase 37 (8-78) U/L TSH 1.93 (0.32-4.0) uIU/mL Urine Color Yellow Urine Appearance Clear Urine pH 5.5 (5.0-9.0) Ur Specific [place] 1.010 (1.005-1.025) Urine Protein 100 (2+) H (Neg-Trace) mg/dL Urine Glucose (UA) Negative (Negative) mg/dL Urine Ketones Negative (Negative) mg/dL Urine Blood Small (1+) H (Negative) Urine Nitrite Negative (Negative) Ur Leukocyte Esterase Trace H (Negative) Urine RBC 3-5 H (0-2) /HPF Urine WBC 0-5 (0-5) /HPF Ur Squamous Epith Cells 3-5 (0-2) /HPF Urine Bacteria None Seen (None Seen) Hyaline Casts 0-2 (0-2) /LPF Granular Casts Present 10/24/22 Range/Units 09:59 WBC (4.8-10.8) X10*3/uL RBC (4.20-5.50) X10*6/uL Hgb (12.0-16.0) g/dl Hct (37.0-47.0) % MCV (80.0-98.0) fL MCH (27.0-33.0) pg MCHC (31.0-35.0) g/dl RDW (11.0-16.0) % Plt Count (160-400) X10*3/uL MPV (9.4-12.3) fL Immature Gran % (Auto) (0.0-0.4) % Neut % (Auto) (45-73) % Lymph % (Auto) (20-40) % [place] % (Auto) (2-11) % Eos % (Auto) (0-4) % Baso % (Auto) (0-2) % Lymph # (Auto) (1.2-4.9) X10*3/uL [place] # (Auto) (0.1-1.2) X10*3/uL Eos # (Auto) (0.0-0.4) X10*3/uL Baso # (Auto) (0.0-0.2) X10*3/uL Abs Immat Gran (auto) (0.00-0.03) X10*3/uL Absolute Neuts (auto) (2.0-8.3) x10*3/uL Absolute Nucleated RBC (0.0-0.012) X10*3/uL Nucleated RBC % (auto) (0.0-0.2) /100WBC Sodium 137 (135-145) mmol/L Potassium 5.6 H (3.3-5.1) mmol/L Chloride 110 H (96-108) mmol/L Carbon Dioxide 22 (22-29) mmol/L Anion Gap 11 L (12-20) BUN 45 H (9-16) mg/dL Creatinine 3.24 H (0.5-1.4) mg/dL Estim Creat Clear Calc 19.0 Estimated GFR 14 Random Glucose 168 H (60-115) mg/dL Calcium 9.1 D (8.4-10.2) mg/dL Total Bilirubin (0.0-1.0) mg/dL AST (5-31) U/L ALT (0-31) U/L Alkaline Phosphatase (39-117) U/L Total Protein (6.5-8.0) g/dL Albumin (3.5-5.0) g/dL Lipase (8-78) U/L TSH (0.32-4.0) uIU/mL Urine Color Urine Appearance Urine pH (5.0-9.0) Ur Specific [place] (1.005-1.025) Urine Protein (Neg-Trace) mg/dL Urine Glucose (UA) (Negative) mg/dL Urine Ketones (Negative) mg/dL Urine Blood (Negative) Urine Nitrite (Negative) Ur Leukocyte Esterase (Negative) Urine RBC (0-2) /HPF Urine WBC (0-5) /HPF Ur Squamous Epith Cells (0-2) /HPF Urine Bacteria (None Seen) Hyaline Casts (0-2) /LPF Granular Casts Independent Interpretation I performed an independent interpretation of an: EKG (Normal sinus rhythm heart rate 69, no acute ST elevations depressions, normal intervals) Critical Care Time Critical Care Time Total Critical Care Time: 40 Attestation: Critical care time was spent with patient the time of approximately 40-45 minut es. Patient has diagnosis of hyperkalemia with acute kidney injury. This puts her at risk for potentially life-threatening cardiac dysrhythmia. Additionally, this required consultation with other providers. Additional time spent on patient included documentation, review of medical data, interpretation and medical data, management of her medical conditions. This is all outside of medical procedures. Discharge Plan Discharge Clinical Impression: Nausea & vomiting, BRAYAN (acute kidney injury), Babesiasis, Acute hyperkalemia Patient Disposition: Admitted As Inpatient
[2022-10-24 09:00] LABS: Alanine Aminotransferase 74 U/L (0-31); Albumin Level 3.9 g/dL (3.5-5.0); Alkaline Phosphatase 77 U/L (39-117); Anion Gap 12 (12-20); Aspartate Amino Transferase 69 U/L (5-31); Bilirubin Total 0.9 mg/dL (0.0-1.0); Blood Urea Nitrogen 49 mg/dL (9-16); Carbon Dioxide 20 mmol/L (22-29); Chloride 107 mmol/L (96-108); Creatinine Clr Calc Pharmacy 17.3; Estimated Glomerular Filt Rate 13; Glucose Random 226 mg/dL (60-115); Lipase 37 U/L (8-78); Potassium 5.6 mmol/L (3.3-5.1); Sodium 133 mmol/L (135-145); Total Protein 7.4 g/dL (6.5-8.0)
[2022-10-24 09:15] LABS: TSH reflex Free T4 1.93 uIU/mL (0.32-4.0)
[2022-10-24 09:31] LABS: Appearance Urine Clear; Color Urine Yellow; Glucose Urine UA Negative (Negative); Leukocyte Esterase Urine Trace (Negative); Nitrite Urine Negative (Negative); PH 5.5 (5.0-9.0); UMIC TRIGGER UACC YES; Urine Blood Small (1+) (Negative); Urine Ketones Negative (Negative); Urine Protein 100 (2+) mg/dL (Neg-Trace)
[2022-10-24 09:45] LABS: Bacteria Urine None Seen (None Seen); Granular Casts Urine Present; Hyaline Casts Urine 0-2 /LPF (0-2); WBC Urine 0-5 /HPF (0-5)
[2022-10-24 10:18] LABS: Anion Gap 11 (12-20); Blood Urea Nitrogen 45 mg/dL (9-16); Calcium 9.1 mg/dL (8.4-10.2); Carbon Dioxide 22 mmol/L (22-29); Chloride 110 mmol/L (96-108); Estimated Glomerular Filt Rate 14; Glucose Random 168 mg/dL (60-115); Potassium 5.6 mmol/L (3.3-5.1); Sodium 137 mmol/L (135-145)
[2022-10-24] MEDS: Albuterol Sulfate (0.083%) 2.5 MG/3 ML VIAL.NEB 10 MG INHALE (10:34)
[2022-10-24 10:36] VITALS: PULSE 75; RESP 16; O2SAT 98
[2022-10-24] MEDS: Sodium Zirconium Cyclosilicate 10 GM POWD.PACK PO (10:49)
[2022-10-24 10:56] VITALS: BP 105/52; PULSE 67; RESP 16; O2SAT 97
--- NOTE | 2022-10-24 11:15 | P.HPHOSP_ITS ---
History of Present Illness Date of Service: 10/24/22 Chief Complaint: Abdominal pain 62 year old women presenting with nausea and vomiting that has been ongoing for the last several days. She presented to the ED On 10/18/22 with elevated blood sugar levels and a yeast infection. She had also reported rash to her abdomen and was concerned about possible tick exposure patient was treated with post exposure doxycycline and tick panel was obtained. She returned today with nausea and vomiting. And patient's take panel did come back positive for Babesia and was sent azithromycin to her pharmacy but she reported she did not started it. She reported mild fever at home but could not quantify. She denied chest pain, shortness of breath, diarrhea, sick contacts, recent travel. In the ER her potassium was noted to be 5.6, creatinine 3.24. Abdominal ultrasound obtained with pending results. Patient was given 2 L of IV fluids, [place], albuterol, Lokelma. She was also given a dose of atovaquone and azithromycin for Babesia. She will be admitted for further management and treatment of acute renal failure secondary to hypovolemia. Review of Systems Review of Systems: Denies any recent fever chills or decrease in appetite respiratory denies any shortness of breath coverage production cardiovascular denies chest pain gastrointestinal denies any dysphagia abdominal pain nausea vomiting or diarrhea genitourinary denies any dysuria frequency or hematuria musculoskeletal denies any joint pain or swelling neuropsych denies any weakness or seizures all other systems reviewed are negative [facility] Medical History (Updated 10/24/22 @ 11:19 by Rose Marie Vasquez NP) Asthma Bronchitis CAD (coronary artery disease) Diabetes Diabetic 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 Dyslipidemia GERD (gastroesophageal reflux disease) Hypertension Obesity (BMI 30-39.9) Osteopenia Paroxysmal atrial fibrillation Vitamin D deficiency Family History Father Heart failure Diabetes mellitus Mother Cholangiocarcinoma Diabetes mellitus Family history of hypertension Family history of heart attack Brother Lung cancer Family/Other Breast cancer Sister Surgical History History of esophagogastroduodenoscopy (EGD) Hx of cataract surgery Hx of colonoscopy Hx of foot surgery Social History Household Members: Children Housing: Apartment Do you presently have visiting nurse or other home services: Yes Alcohol intake: current Alcohol intake frequency: a few times a month Alcohol type: beer Patient Tobacco Use Status: Former Tobacco user Cigarettes Per Day: 12 Years Smoked: 45 Advance Directives: Yes Advance Directives on File: Yes Advance Directives Date on File: 10/19/22 service: No Current occupational status: unemployed Meds Allergies Allergy/AdvReac Type Severity Reaction Status Date / Time ibuprofen [IBUPROFEN] Allergy Severe SICK TO Verified 07/15/22 08:32 MY STOMACH ciprofloxacin [From CIPRO] Allergy Intermediate SICK Verified 07/15/22 08:32 doxycycline Allergy Intermediate Dizziness Verified 07/15/22 08:32 levofloxacin [From LEVAQUIN] Allergy Intermediate SICK , Verified 07/15/22 08:32 nausea, dizziness x days flu vaccine Allergy Intermediate Swelling Uncoded 07/15/22 08:32 Active Medications: Current Medications Sodium Chloride (Ns) 1,000 mls @ 999 mls/hr IV .Q1H1M AMANDA Stop: 10/24/22 12:00 Home Medications Medication Instructions Recorded Confirmed Last Taken Type sertraline 100 mg tablet 100 mg PO DAILY PRN Anxiety 02/26/20 10/24/22 12/28/20 History albuterol sulfate 90 mcg/actuation 2 puff PO Q4-6H PRN Shortness Of 12/28/20 10/24/22 01/01/21 History aerosol inhaler (Ventolin HFA) Breath lisinopril 40 mg tablet 40 mg PO DAILY 04/20/21 10/24/22 Unknown History blood sugar diagnostic (FreeStyle #10 ea 06/23/21 04/26/22 Unknown History Lite Strips) tiotropium bromide 1.25 2 puff inhalation DAILY PRN 01/21/22 10/24/22 Unknown History mcg/actuation mist for inhalation Shortness Of Breath Or Wheezing (Spiriva Respimat) acetaminophen 500 mg tablet 1,000 mg PO DAILY PRN Pain 10/24/22 10/24/22 Unknown History glipizide 10 mg tablet 10 mg PO BID 10/24/22 10/24/22 Unknown History insulin degludec 100 unit/mL (3 12 unit subcut DAILY 10/24/22 10/24/22 Unknown History mL) subcutaneous pen (Tresiba FlexTouch U-100 insulin) psyllium husk 0.4 gram capsule 0.8 g PO DAILY PRN Constipation 10/24/22 10/24/22 Unknown History Physical Exam Vital Signs and Narrative: Vital Signs: Last Vital Signs Temp 97.3 F 10/24/22 08:01 Pulse 67 10/24/22 10:56 Resp 16 10/24/22 10:56 BP 105/52 L 10/24/22 10:56 Pulse Ox 97 10/24/22 10:56 O2 Del Method Aerosol Mask 10/24/22 10:56 O2 Flow Rate 7 10/24/22 10:56 BMI result Body Mass Index 36.5 Appearing in no acute distress head is normocephalic atraumatic eyes pupils are PERRLA sclera is anicteric mouth throat mucous membranes are intact and moist neck is supple no lymphadenopathy, no JVD noted lung sounds are clear to auscultation heart regular rate rhythm, clear S1, S2 positive bowel sounds, abdomen is soft, nontender neuro patient is alert x3, no focal deficits Results Labs 10/24/22 08:29 10/24/22 09:59 Labs: Laboratory Results - last 24 hr 10/24/22 10/24/22 10/24/22 08:29 08:29 09:25 MCV 95.5 MCH 31.3 MCHC 32.7 RDW 13.9 Plt Count 154 L MPV 9.0 L Immature Gran % (Auto) 0.2 Neut % (Auto) 57.6 Lymph % (Auto) 26.8 [place] % (Auto) 13.2 H Eos % (Auto) 1.8 Baso % (Auto) 0.4 Lymph # (Auto) 1.2 [place] # (Auto) 0.6 Eos # (Auto) 0.1 Baso # (Auto) 0.0 Abs Immat Gran (auto) 0.01 Absolute Neuts (auto) 2.6 Absolute Nucleated RBC 0.000 Nucleated RBC % (auto) 0.0 Anion Gap 12 Estim Creat Clear Calc 17.3 Estimated GFR 13 Random Glucose 226 H Calcium 10.0 D Total Bilirubin 0.9 AST 69 H ALT 74 H Alkaline Phosphatase 77 Total Protein 7.4 Albumin 3.9 Lipase 37 TSH 1.93 Urine Color Yellow Urine Appearance Clear Urine pH 5.5 Ur Specific [place] 1.010 Urine Protein 100 (2+) H Urine Glucose (UA) Negative Urine Ketones Negative Urine Blood Small (1+) H Urine Nitrite Negative Ur Leukocyte Esterase Trace H Urine RBC 3-5 H Urine WBC 0-5 Ur Squamous Epith Cells 3-5 Urine Bacteria None Seen Hyaline Casts 0-2 Granular Casts Present 10/24/22 09:59 MCV MCH MCHC RDW Plt Count MPV Immature Gran % (Auto) Neut % (Auto) Lymph % (Auto) [place] % (Auto) Eos % (Auto) Baso % (Auto) Lymph # (Auto) [place] # (Auto) Eos # (Auto) Baso # (Auto) Abs Immat Gran (auto) Absolute Neuts (auto) Absolute Nucleated RBC Nucleated RBC % (auto) Anion Gap 11 L Estim Creat Clear Calc 19.0 Estimated GFR 14 Random Glucose 168 H Calcium 9.1 D Total Bilirubin AST ALT Alkaline Phosphatase Total Protein Albumin Lipase TSH Urine Color Urine Appearance Urine pH Ur Specific [place] Urine Protein Urine Glucose (UA) Urine Ketones Urine Blood Urine Nitrite Ur Leukocyte Esterase Urine RBC Urine WBC Ur Squamous Epith Cells Urine Bacteria Hyaline Casts Granular Casts Assessment and Plan (1) Nausea & vomiting: Status: Acute (2) BRAYAN (acute kidney injury): Status: Acute Plan 62 year old women admitted with BRAYAN and hyperkalemia secondary to hypovolemia related to vomiting BRAYAN secondary to Hypovolemia, vomiting Renal us results pending IV fluids Nephrology consultation Follow BMP closely Hyperkalemia secondary to hypovolemia, vomiting Lokelma x 1 in the ED recheck potassium this afternoon No EKG changes noted normocytic anemia stable HH, no need for transfusion Recent dx of Babesia has not started treatment start Atovaquone 750 BID and azithromycin 250 daily for 7 days Abdominal pain Chronic, possibly secondary to gastroparesis paroxysmal afib continue diltiazem and eliquis HTN hold lisinopril, gabapentin. metformin due to BRAYAN DM2 sliding scale clear diet for now DVT prophylaxis with Eliquis Full code Time Spent With Patient Time: Total time managing care of this patient today ____ minutes. Quality Stroke Does the patient have a stroke diagnosis?: No VTE Prior VTE?: No VTE Risk Level:: Medical - moderate - high VTE Device Contraindication: Treatment Not Indicated VTE Drug Contraindication: N/A - Med Ordered
[2022-10-24 12:01] LABS: Lactate Dehydrogenase 374 U/L (122-220)
--- NOTE | 2022-10-24 12:10 | PHA.MEDREC ---
Pharmacy Consult ? Medication Reconciliation Pharmacy has completed the medication reconciliation. spoke with patient and she confirmed her medications
[2022-10-24] MEDS: Azithromycin 500 MG TABLET PO (12:17)
[2022-10-24] MEDS: Atovaquone 750 MG/5 ML ORAL.SUSP PO ×2 (12:34→20:08)
[2022-10-24 14:45] VITALS: BP 130/60; PULSE 93; RESP 20; TEMP 36.1; O2SAT 97
[2022-10-24] MEDS: 0.9 % Sodium Chloride 1,000 ML 100 ML IVCONT ×2 (14:45→20:16)
[2022-10-24] MEDS: Azithromycin 250 MG TABLET PO (15:05)
[2022-10-24 16:11] LABS: Potassium 4.5 mmol/L (3.3-5.1)
[2022-10-24 19:38] VITALS: BP 116/81; PULSE 83; RESP 16; TEMP 36.1; O2SAT 95
[2022-10-24] MEDS: Apixaban 5 MG TABLET PO (20:08)
[2022-10-24 20:30] LABS: Glucose, Whole Blood 321 mg/dL (60-115)
[2022-10-24] MEDS: Insulin Lispro 100 UNIT/ML 3 ML VIAL SUBCUT (22:10)
[2022-10-24 22:29] VITALS: BMI 35.7
[2022-10-24 23:23] LABS: Creatinine Urine 26.23 mg/dL
[2022-10-24 23:25] VITALS: BP 114/62; PULSE 80; RESP 18; TEMP 36; O2SAT 94
[2022-10-25 03:28] VITALS: BP 112/54; PULSE 75; RESP 18; TEMP 36.1; O2SAT 96
[2022-10-25 07:01] LABS: MANUAL DIFF FLAG NO
[2022-10-25 07:04] LABS: Basophils Percent Auto 0.3 % (0-2); Eosinophils Absolute Auto 0.1 X10*3/uL (0.0-0.4); Eosinophils Percent Auto 3.4 % (0-4); Hematocrit 30.4 % (37.0-47.0); Hemoglobin 9.8 g/dl (12.0-16.0); Imm Gran Abs Auto 0.01 X10*3/uL (0.00-0.03); Imm Gran Pct Auto 0.3 % (0.0-0.4); Lymphocytes Absolute Auto 1.1 X10*3/uL (1.2-4.9); Lymphocytes Percent Auto 32.9 % (20-40); Mean Corpuscular HGB Conc 32.2 g/dl (31.0-35.0); Mean Corpuscular Hemoglobin 31.3 pg (27.0-33.0); Mean Corpuscular Volume 97.1 fL (80.0-98.0); Mean Platelet Volume 8.4 fL (9.4-12.3); Monocytes Absolute Auto 0.5 X10*3/uL (0.1-1.2); Monocytes Percent Auto 15.2 % (2-11); Neutrophils Absolute Auto 1.6 x10*3/uL (2.0-8.3); Neutrophils Percent Auto 47.9 % (45-73); Platelet Count 130 X10*3/uL (160-400); Red Blood Count 3.13 X10*6/uL (4.20-5.50); Red Cell Distribution Width 14.1 % (11.0-16.0); White Blood Count 3.3 X10*3/uL (4.8-10.8)
[2022-10-25 07:05] LABS: Glucose, Whole Blood 176 mg/dL (60-115)
[2022-10-25 07:13] VITALS: BP 118/56; PULSE 65; RESP 20; TEMP 36.1; O2SAT 95
[2022-10-25 07:25] LABS: Alanine Aminotransferase 73 U/L (0-31); Albumin Level 3.4 g/dL (3.5-5.0); Alkaline Phosphatase 67 U/L (39-117); Anion Gap 9 (12-20); Aspartate Amino Transferase 71 U/L (5-31); Bilirubin Total 0.6 mg/dL (0.0-1.0); Blood Urea Nitrogen 35 mg/dL (9-16); Calcium 9.2 mg/dL (8.4-10.2); Carbon Dioxide 23 mmol/L (22-29); Chloride 113 mmol/L (96-108); Creatinine Clr Calc Pharmacy 24.7; Estimated Glomerular Filt Rate 20; Glucose Random 183 mg/dL (60-115); Potassium 5.4 mmol/L (3.3-5.1); Sodium 140 mmol/L (135-145); Total Protein 6.6 g/dL (6.5-8.0)
[2022-10-25] MEDS: Insulin Glargine,Hum.rec.anlog 100 UNIT/ML 10 ML VIAL 8 UNIT SUBCUT (10:17)
[2022-10-25] MEDS: Atovaquone 750 MG/5 ML ORAL.SUSP PO ×2 (10:18→20:03)
[2022-10-25] MEDS: Apixaban 5 MG TABLET PO ×2 (10:18→20:02)
[2022-10-25] MEDS: Cholecalciferol (Vitamin D3) 25 MCG TABLET PO (10:18)
[2022-10-25] MEDS: dilTIAZem HCL CD 180 MG CAP.ER.24H PO (10:18)
[2022-10-25] MEDS: Ezetimibe 10 MG TABLET PO (10:18)
[2022-10-25] MEDS: Sodium Zirconium Cyclosilicate 10 GM POWD.PACK PO (10:22)
[2022-10-25] MEDS: Insulin Lispro 100 UNIT/ML 3 ML VIAL SUBCUT ×3 (10:22→20:07)
[2022-10-25 11:03] LABS: Glucose, Whole Blood 322 mg/dL (60-115)
[2022-10-25 11:07] VITALS: BP 136/58; PULSE 70; RESP 20; TEMP 36.3; O2SAT 97
--- NOTE | 2022-10-25 11:12 | HO.PM.IMPN ---
Subjective Subjective Date of Service: 10/25/22 Interval History: Follow up BRAYAN and hyperkalemia feeling better today, no vomiting or diarrhea Physical Exam Vital Signs: Vital Signs: Last Vital Signs Temp 97.3 F 10/25/22 11:07 Pulse 70 10/25/22 11:07 Resp 20 10/25/22 11:07 BP 136/58 L 10/25/22 11:07 Pulse Ox 97 10/25/22 11:07 O2 Del Method Room Air 10/25/22 11:07 O2 Flow Rate 7 10/24/22 10:56 BMI result Body Mass Index 35.7 Appearing in no acute distress lung sounds are clear to auscultation heart regular rate rhythm, clear S1, S2 positive bowel sounds, abdomen is soft, nontender neuro patient is alert x3, no focal deficits Objective Data Active Medications Acetaminophen (Acetaminophen 325 Mg Tablet) 650 mg PO Q6H PRN PRN Reason: Pain, Mild (Pain Scale 1-3) Albuterol Sulfate (Albuterol Sulfate (0.083%) 2.5 Mg/3 Ml Vial.Neb) 2.5 mg INHALE RQID PRN PRN Reason: shortness of breath or wheezing Apixaban (Apixaban 5 Mg Tablet) 5 mg PO BID COUNT INCLUDES THE [facility] Last Admin: 10/25/22 10:18 Dose: 5 mg Documented By: WYATT Atovaquone (Atovaquone 750 Mg/5 Ml Oral.Susp) 750 mg PO BID COUNT INCLUDES THE [facility] Stop: 10/31/22 20:59 Last Admin: 10/25/22 10:18 Dose: 750 mg Documented By: WYATT Azithromycin (Azithromycin 250 Mg Tablet) 250 mg PO Q24H COUNT INCLUDES THE [facility] Stop: 10/31/22 13:29 Last Admin: 10/24/22 15:05 Dose: 250 mg Documented By: EFREN Dextrose (Dextrose 50 % 25 Gm/50 Ml Syringe) 25 gm IVPUSH Q15M PRN; Protocol PRN Reason: per Hypoglycemia Standing Ord. Diltiazem HCl (Diltiazem Hcl Cd 180 Mg Cap.Er.24h) 180 mg PO DAILY COUNT INCLUDES THE [facility]; Protocol Last Admin: 10/25/22 10:18 Dose: 180 mg Documented By: WYATT Ezetimibe (Ezetimibe 10 Mg Tablet) 10 mg PO DAILY COUNT INCLUDES THE [facility] Last Admin: 10/25/22 10:18 Dose: 10 mg Documented By: WYATT Glucose (Glucose Gel 15 Gm Gel..Gram.) 15 gm PO Q15M PRN; Protocol PRN Reason: per Hypoglycemia Standing Ord. Sodium Chloride (Ns) 1,000 mls @ 100 mls/hr IVCONT .Q10H COUNT INCLUDES THE [facility] Last Infusion: 10/25/22 02:32 Dose: 100 mls/hr Documented By: DAVID Insulin Glargine (Insulin Glargine,Hum.Rec.Anlog 100 Unit/Ml 10 Ml Vial) 8 unit SUBCUT DAILY COUNT INCLUDES THE [facility] Last Admin: 10/25/22 10:17 Dose: 8 unit Documented By: WYATT Insulin Human Lispro (Insulin Lispro 100 Unit/Ml 3 Ml Vial) 0 unit SUBCUT QIDACHS COUNT INCLUDES THE [facility]; Protocol Last Admin: 10/25/22 10:22 Dose: 2 unit Documented By: WYATT Ondansetron HCl (Ondansetron Hcl 4 Mg/2 Ml Vial) 4 mg IVPUSH Q8H PRN PRN Reason: Nausea and Vomiting Pharmacy Consult (Consult Rx Perform Med Rec) 1 each MISCELLANE ONCE PRN PRN Reason: Consult order Sertraline HCl (Sertraline Hcl 100 Mg Tablet) 100 mg PO DAILY PRN PRN Reason: Anxiety Vitamin D (Cholecalciferol (Vitamin D3) 25 Mcg Tablet) 25 mcg PO DAILY COUNT INCLUDES THE [facility] Last Admin: 10/25/22 10:18 Dose: 25 mcg Documented By: WYATT Labs 10/25/22 06:55 10/25/22 06:55 Labs: Laboratory Results - last 24 hr 10/24/22 10/24/22 10/24/22 08:29 20:26 22:55 MCV MCH MCHC RDW Plt Count MPV Immature Gran % (Auto) Neut % (Auto) Lymph % (Auto) [place] % (Auto) Eos % (Auto) Baso % (Auto) Lymph # (Auto) [place] # (Auto) Eos # (Auto) Baso # (Auto) Abs Immat Gran (auto) Absolute Neuts (auto) Absolute Nucleated RBC Nucleated RBC % (auto) Anion Gap Estim Creat Clear Calc Estimated GFR POC Glucose 321 H Random Glucose Calcium Total Bilirubin AST ALT Alkaline Phosphatase Lactate Dehydrogenase 374 H Total Protein Albumin Ur Random Sodium 61.0 Urine Creatinine 26.23 10/25/22 10/25/22 10/25/22 06:55 06:55 07:01 MCV 97.1 MCH 31.3 MCHC 32.2 RDW 14.1 Plt Count 130 L MPV 8.4 L Immature Gran % (Auto) 0.3 Neut % (Auto) 47.9 Lymph % (Auto) 32.9 [place] % (Auto) 15.2 H Eos % (Auto) 3.4 Baso % (Auto) 0.3 Lymph # (Auto) 1.1 L [place] # (Auto) 0.5 Eos # (Auto) 0.1 Baso # (Auto) 0.0 Abs Immat Gran (auto) 0.01 Absolute Neuts (auto) 1.6 L Absolute Nucleated RBC 0.000 Nucleated RBC % (auto) 0.0 Anion Gap 9 L Estim Creat Clear Calc 24.7 Estimated GFR 20 POC Glucose 176 H Random Glucose 183 H Calcium 9.2 Total Bilirubin 0.6 AST 71 H ALT 73 H Alkaline Phosphatase 67 Lactate Dehydrogenase Total Protein 6.6 Albumin 3.4 L Ur Random Sodium Urine Creatinine 10/25/22 10:59 MCV MCH MCHC RDW Plt Count MPV Immature Gran % (Auto) Neut % (Auto) Lymph % (Auto) [place] % (Auto) Eos % (Auto) Baso % (Auto) Lymph # (Auto) [place] # (Auto) Eos # (Auto) Baso # (Auto) Abs Immat Gran (auto) Absolute Neuts (auto) Absolute Nucleated RBC Nucleated RBC % (auto) Anion Gap Estim Creat Clear Calc Estimated GFR POC Glucose 322 H Random Glucose Calcium Total Bilirubin AST ALT Alkaline Phosphatase Lactate Dehydrogenase Total Protein Albumin Ur Random Sodium Urine Creatinine Assessment and Plan (1) Nausea & vomiting: Status: Acute Plan 62 year old women admitted with BRAYAN and hyperkalemia secondary to hypovolemia related to vomiting BRAYAN. creat trending down secondary to Hypovolemia, vomiting recent dx of babesia Renal us>possible right renal artery stenosis IV fluids Nephrology following>stable BP no need for tx of possible lewis Follow BMP closely Hyperkalemia secondary to hypovolemia, vomiting Lokelma x2 recheck potassium this afternoon No EKG changes noted normocytic anemia stable HH, no need for transfusion Recent dx of Babesia start Atovaquone 750 BID and azithromycin 250 daily for 7 days (10/24/22) Abdominal pain Chronic, possibly secondary to gastroparesis paroxysmal afib continue diltiazem and eliquis HTN hold lisinopril, gabapentin. metformin due to BRAYAN DM2 sliding scale ada diet DVT prophylaxis with Eliquis Attending Dr. Benz Continue hospitalization for treatment of BRAYAN requiring IV fluids and close monitoring of renal function Time Spent With Patient Time: Total time managing care of this patient today ____ minutes. Quality Stroke Does the patient have a stroke diagnosis?: No VTE Prior VTE?: No VTE Risk Level:: Medical - moderate - high VTE Device Contraindication: Treatment Not Indicated VTE Drug Contraindication: N/A - Med Ordered
--- NOTE | 2022-10-25 11:21 | MHC.CM.PN ---
IMM 10/25/22, EMR REVIEWED, PT ADMITTED W/DEHYDRATION/HYPOKALEMIA, CM MET W/PT WHO REPORTS SHE HAS AN APT IN HER SON NITO'S HOUSE, PT HAS NEBULIZER, CANE, WALKER FOR DME AND REPORTS SHE USES BOTH CANE/WALKER, PT'S SON IGLESIA IS PTS' [employer] CAR [employer]CH[employer]IC AND PT HAS 3HRS/DAILY. WHEN DISCUSSING POSSIBILITY OF V[facility] PT DECLINES HOWEVER THAT MAY CHANGE. PT VERIFIFES PCP IS Della JOY X1 AND 1 BOOSTER, HCP IS VERIFIED AND ON FILE FROM PREVIOUS ADMIT.
[2022-10-25] MEDS: 0.9 % Sodium Chloride 1,000 ML 100 ML IVCONT ×2 (11:54→20:08)
[2022-10-25] MEDS: Azithromycin 250 MG TABLET PO (11:55)
--- NOTE | 2022-10-25 12:45 | CONS_ITS ---
DATE OF SERVICE: 10/25/2022 REASON FOR CONSULTATION: Consult requested by the medical team to evaluate and help in management of the patient with hyperkalemia and acute kidney injury. HISTORY OF PRESENT ILLNESS: The patient is a 62-year-old female with past medical history of asthma, coronary artery disease, type 2 diabetes mellitus, history of chronic kidney disease, creatinine anywhere around 1.5 recently. It was 1.2 in 2021, who presented to the hospital complains of abdominal pain. She was apparently in the ED on 10/18 with elevated blood sugars and yeast infection. She also reported a rash in her abdomen, concern of possible tick exposure and she was treated with doxycycline. She returned yesterday with nausea and vomiting. The blood work came out positive for Babesiosis. Azithromycin was sent to the pharmacy, but she did not start it. She reported mild fever at home, but could not quantify. There was no chest pain, shortness of breath, diarrhea, sick contacts or recent travel. In the ER, the patient's potassium was 5.2 with a creatinine of 3.24. Ultrasound was done in the ER and there was no hydronephrosis. She was given 2 L of IV fluid, Reglan, albuterol, Lokelma. She was also given a dose of atovaquone and azithromycin for Babesiosis. She was admitted for further evaluation and management. At the present time, she is feeling better and a creatinine is improved to 2.46. She is passing urine. Her abdominal pain is improved. REVIEW OF SYSTEMS: As noted above. Other systems reviewed negative. PAST MEDICAL HISTORY: History of asthma/bronchitis, history of coronary artery disease, type 2 diabetes mellitus, diabetic 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, dyslipidemia, GERD, hypertension, obesity, osteopenia, paroxysmal atrial fibrillation, chronic kidney disease, stage 3, and looks like she has been followed up in our office in [place]. FAMILY HISTORY: Father and had heart failure and diabetes. Mother had cholangiocarcinoma, diabetes. Brother had lung CA. There is family history of breast CA. PAST SURGICAL HISTORY: History of the endoscopy, cataract surgery, colonoscopy, and foot surgery. PERSONAL AND SOCIAL HISTORY: The patient lives at home with her children. Takes alcohol on and off. Former smoker. Does not use drugs. ALLERGIES: INCLUDE ALLERGIES TO CIPRO, IBUPROFEN, DOXYCYCLINE, LEVAQUIN, AND FLU. MEDICATIONS: At home includes sertraline, albuterol, lisinopril 40 mg daily, Tylenol, insulin. PHYSICAL EXAMINATION: GENERAL: The patient is resting in the bed. Awake, alert, and oriented x3. VITAL SIGNS: Blood pressure was 118/56, pulse 65, afebrile. HEENT/NECK: Shows pupils equal, round and reactive bilaterally to light. No jugular venous distention is noted. Neck was supple. No thyromegaly is noted. Mucosa was dry. There is no scleral icterus or conjunctival congestion. CARDIOVASCULAR SYSTEM: S1, S2 without rub or murmur. RESPIRATORY SYSTEM: Mild decreased in the bases. No crepitation or rhonchi are noted. ABDOMEN: Obese, soft with minimal epigastric tenderness. No guarding noted. Bowel sounds normal. EXTREMITIES: Showed no edema. There is no peripheral cyanosis or clubbing. NEURO: Essentially nonfocal. LABORATORY DATA: Labs done today; WBC is 3.3, hemoglobin 9.8, hematocrit 30.4, platelets 130. INR 1.1. Sodium 140, potassium 5.4, chloride 113, CO2 23, BUN 35, creatinine 2.46, estimated GFR is 20, glucose 183, calcium 9.2, total bilirubin 0.6, albumin 3.4, LDH was 374. Total bilirubin was 0.6. Urine testing showed yellow urine is clear with specific gravity 1.010, protein 100, rbc's 3 to 5, wbc's 0 to 5. Urine sodium was 61, urine creatinine was 26. Renal ultrasound done recently showed right kidney 10.8 and left kidney 11.2 cm. There was no hydronephrosis. There was elevated velocities in the right renal artery consistent with renal artery stenosis on the right side. IMPRESSION: A 62-year-old female with acute kidney injury. 1. Acute kidney injury in this patient likely secondary to prerenal azotemia in the setting of vomiting. Renal ultrasound did not show any obstructive uropathy. Based on the urinalysis, I doubt the patient has acute interstitial disease. She was also on FARIHA inhibitor, which could worsen the renal insufficiency. The renal function is already improving with intravenous fluid hydration. 2. Chronic kidney disease, stage 3 at baseline in the setting of longstanding diabetes and hypertension likely diabetic/hypertensive renal disease. 3. Hyperkalemia due to acute kidney injury, chronic kidney disease and use of FARIHA inhibitor, lisinopril. 4. Normocytic-normochromic anemia. 5. 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 6. Abdominal pain possibly due to gastroparesis and possibly gastritis. 7. Diabetes, on metformin. RECOMMENDATIONS: I agree with holding off on metformin and lisinopril at this juncture. Continue with gentle hydration for the patient. Would avoid using lactated Ringer's solution as the patient's potassium level is on the high side. I recommend giving 1 dose of Lokelma 10 g today. I expect renal function continues to improve and go back to her baseline. Long-term she would benefit from a smaller dose of FARIHA inhibitor. She needs to be on a low-potassium diet/2 g potassium diet, which is communicated with the medical team. It is unclear if she is a candidate of SGLT2 inhibitors and we can reevaluate for this medication as an outpatient. In regard to possible renal artery stenosis on the Doppler, her blood pressure is well controlled at the present time in the 110s. She is on 1 blood pressure medication as an outpatient, i.e., lisinopril, and I do not think she requires any intervention or imaging at this juncture. We will continue to follow her renal function closely and her blood pressure. Thank you for allowing me to participate in medical management of this patient. MD LORIE Tucker/ANA / [phone]
[2022-10-25 15:07] VITALS: BP 118/57; PULSE 64; RESP 18; TEMP 36.1; O2SAT 95
[2022-10-25 16:22] LABS: Glucose, Whole Blood 111 mg/dL (60-115)
[2022-10-25 19:18] VITALS: BP 118/56; PULSE 70; RESP 20; TEMP 36.1; O2SAT 94
[2022-10-25 20:06] LABS: Glucose, Whole Blood 225 mg/dL (60-115)
[2022-10-25] MEDS: Acetaminophen 325 MG TABLET 650 MG PO (20:11)
[2022-10-25 23:27] VITALS: BP 110/53; PULSE 63; RESP 18; TEMP 36.6; O2SAT 97
[2022-10-26 03:42] VITALS: BP 105/55; PULSE 64; RESP 18; TEMP 36; O2SAT 97
[2022-10-26] MEDS: 0.9 % Sodium Chloride 1,000 ML 100 ML IVCONT (05:55)
[2022-10-26 07:06] LABS: Glucose, Whole Blood 145 mg/dL (60-115)
[2022-10-26 07:14] VITALS: BP 111/56; PULSE 61; RESP 20; TEMP 36.1; O2SAT 94
[2022-10-26] MEDS: Insulin Glargine,Hum.rec.anlog 100 UNIT/ML 10 ML VIAL 8 UNIT SUBCUT (08:14)
[2022-10-26] MEDS: Cholecalciferol (Vitamin D3) 25 MCG TABLET PO (08:14)
[2022-10-26] MEDS: Ezetimibe 10 MG TABLET PO (08:14)
[2022-10-26] MEDS: Apixaban 5 MG TABLET PO (08:14)
[2022-10-26] MEDS: dilTIAZem HCL CD 180 MG CAP.ER.24H PO (08:14)
[2022-10-26] MEDS: Atovaquone 750 MG/5 ML ORAL.SUSP PO (08:15)
[2022-10-26 08:46] LABS: Anion Gap 9 (12-20); Blood Urea Nitrogen 25 mg/dL (9-16); Calcium 8.6 mg/dL (8.4-10.2); Carbon Dioxide 21 mmol/L (22-29); Chloride 114 mmol/L (96-108); Creatinine Clr Calc Pharmacy 34.3; Estimated Glomerular Filt Rate 29; Glucose Random 156 mg/dL (60-115); Potassium 4.2 mmol/L (3.3-5.1); Sodium 140 mmol/L (135-145)
--- NOTE | 2022-10-26 09:06 | PM.PNNEP ---
Subjective Subjective Date of Service: 10/26/22 Interval history: seen and examined denies CP/SOB/N/V/D Physical Exam Vital Signs: Vital Signs: Last Vital Signs Temp 96.9 F 10/26/22 07:14 Pulse 61 10/26/22 07:14 Resp 20 10/26/22 07:14 BP 111/56 L 10/26/22 07:14 Pulse Ox 94 10/26/22 07:14 O2 Del Method Room Air 10/26/22 07:14 O2 Flow Rate 7 10/24/22 10:56 BMI result Body Mass Index 35.7 Const: General: no acute distress, alert and awake HEENT: Head: Yes normocephalic and Yes atraumatic Neck: Neck: Yes supple Resp: Auscultation: clear to auscultation bilaterally Cardio: Heart sounds: S1 normal heart sound present and S2 normal heart sound present GI: Palpation (GI): Soft to palpation and nontender Extrem: General: Yes normal to inspection Objective Data Labs 10/25/22 06:55 10/26/22 07:29 Labs: Laboratory Results - last 24 hr 10/25/22 10/25/22 10/25/22 10:59 16:06 20:01 Sodium Potassium Chloride Carbon Dioxide Anion Gap BUN Creatinine Estim Creat Clear Calc Estimated GFR POC Glucose 322 H 111 225 H Random Glucose Calcium 10/26/22 10/26/22 07:02 07:29 Sodium 140 Potassium 4.2 D Chloride 114 H Carbon Dioxide 21 L Anion Gap 9 L BUN 25 H Creatinine 1.78 H Estim Creat Clear Calc 34.3 Estimated GFR 29 POC Glucose 145 H Random Glucose 156 H Calcium 8.6 D Procedures Date of Service Date of Service: 10/26/22 Assessment & Plan Assessment and plan (1) BRAYAN (acute kidney injury): Status: Acute (2) Metabolic acidosis: Status: Acute (3) CKD (chronic kidney disease) stage 3, GFR 30-59 ml/min: Status: Acute Plan Scr better BRAYAN due to renal hypoperfusion no oobstruction on renal imaging study ? mookie vascular disease although renal aortic ratio not c/w with renal artery stenosis h/o CKD baseline Scr ~ 1.5 mg/dl REC c/w IVF follow kidney function and electrolytes Time Spent With Patient Time: Total time managing care of this patient today ____ minutes. Progress Note: Quality Stroke Does the patient have a stroke diagnosis?: No
--- NOTE | 2022-10-26 09:53 | PM.DS ---
DS: Providers Provider Date of Service: 10/26/22 Date of admission: 10/24/22 11:31 Primary care physician: Areli Elam NP Consults: 10/24/22 11:32 Consult to Nephrology Routine Consulting Provider: Ramo Beavers Reason for consultation: hyperkalemia, brayan DS: Diagnosis Discharge Diagnosis (1) BRAYAN (acute kidney injury): Status: Acute (2) Metabolic acidosis: Status: Acute (3) CKD (chronic kidney disease) stage 3, GFR 30-59 ml/min: Status: Acute DS: Summary Hospital Course Hospital Course: 62 year old women presenting with nausea and vomiting that has been ongoing for the last several days. She presented to the ED On 10/18/22 with elevated blood sugar levels and a yeast infection. She had also reported rash to her abdomen and was concerned about possible tick exposure patient was treated with post exposure doxycycline and tick panel was obtained.? She returned today with nausea and vomiting.? And patient's take panel did come back positive for Babesia and was sent azithromycin to her pharmacy but she reported she did not started it.? She reported mild fever at home but could not quantify.? She denied chest pain, shortness of breath, diarrhea, sick contacts, recent travel.? In the ER her potassium was noted to be 5.6, creatinine 3.24.? Abdominal ultrasound obtained with pending results.? Patient was given 2 L of IV fluids, [place], albuterol, Lokelma.? She was also given a dose of atovaquone and azithromycin for Babesia.? She will be admitted for further management and treatment of acute renal failure secondary to hypovolemia. 62-year-old woman treated for BRAYAN and acute hyperkalemia. Likely all secondary to hypovolemia from nausea vomiting and diarrhea. Patient recently diagnosed with Babesia and symptoms may have come from that. She was treated with IV fluids and Lokelma. The hyperkalemia has resolved. Her creatinine baseline is 1.5, she is 1.8 today. She should check her BMP on Monday and hold the metformin and lisinopril until then. The renal ultrasound did show possibility of renal artery stenosis however her blood pressure has been stable and she was seen evaluated by the industrial management teacher who did not feel anything needed to be done at this time but she can follow-up as an outpatient with Nephrology to discuss if anything needs to be done at some point. She feels much better and is ready to go home. Her blood pressures have been stable even off the lisinopril so her dose was decreased to 20 mg daily. normocytic anemia. stable HH, no need for transfusion Recent dx of Babesia. started Atovaquone 750 BID and azithromycin 250 daily for 7 days (10/31/22) paroxysmal afib. continue diltiazem and eliquis DM2. Continue glipizide, hold metformin until 10/28/2022 Time Spent with Patient Time attestation: Total time managing care of this patient today ____ minutes. Discharge coordination time: Greater than 30 minutes Quality: Safe Use of Opioids Does Pt have an Active Cancer Diagnosis on the Problem List?: No Quality: Stroke Does the patient have a stroke diagnosis?: No Physical Exam Vital Signs: Vital Signs: Last Vital Signs Temp 96.9 F 10/26/22 07:14 Pulse 61 10/26/22 07:14 Resp 20 10/26/22 07:14 BP 111/56 L 10/26/22 07:14 Pulse Ox 94 10/26/22 07:14 O2 Del Method Room Air 10/26/22 07:14 O2 Flow Rate 7 10/24/22 10:56 BMI result Body Mass Index 35.7 Appearing in no acute distress head is normocephalic atraumatic eyes pupils are PERRLA sclera is anicteric mouth throat mucous membranes are intact and moist neck is supple no lymphadenopathy, no JVD noted lung sounds are clear to auscultation heart regular rate rhythm, clear S1, S2 positive bowel sounds, abdomen is soft, nontender neuro patient is alert x3, no focal deficits DS: Data Data Completed and Pending Labs on day of discharge: Laboratory Results - last 24 hr 10/25/22 10/25/22 10/25/22 10:59 16:06 20:01 Sodium Potassium Chloride Carbon Dioxide Anion Gap BUN Creatinine Estim Creat Clear Calc Estimated GFR POC Glucose 322 H 111 225 H Random Glucose Calcium 10/26/22 10/26/22 07:02 07:29 Sodium 140 Potassium 4.2 D Chloride 114 H Carbon Dioxide 21 L Anion Gap 9 L BUN 25 H Creatinine 1.78 H Estim Creat Clear Calc 34.3 Estimated GFR 29 POC Glucose 145 H Random Glucose 156 H Calcium 8.6 D Discharge Plan Discharge Anticipated Discharge Date/Time: 10/26/22 09:45 Patient Disposition: Home, Self-Care Discharge Diagnosis: BRAYAN Hyperkalemia Babesia Normocytic anemia Referrals: Areli Elam, SENIOR BRAND MANAGER [Primary Care Provider] - 1 Week Discharge Medications: New azithromycin 250 mg Tablet 250 mg PO Q24H Qty: 5 0RF atovaquone [Mepron] 750 mg/5 mL Suspension 750 mg PO BID 5 Days Qty: 50 0RF lisinopril 20 mg tablet 20 mg PO DAILY Qty: 30 0RF Continued cholecalciferol (vitamin D3) 25 mcg (1,000 unit) capsule 25 mcg PO DAILY Qty: 30 11RF rosuvastatin 40 mg tablet 40 mg PO DAILY Qty: 90 1RF diltiazem HCl [Cardizem CD] 180 mg capsule,extended release 24hr 180 mg PO DAILY 90 Days Qty: 90 3RF Eliquis 5 mg tablet 5 mg PO BID Qty: 60 5RF albuterol sulfate 2.5 mg /3 mL (0.083 %) solution for nebulization 2.5 mg inhalation QID PRN (Reason: shortness of breath or wheezing) Qty: 75 0RF albuterol sulfate [Ventolin HFA] 90 mcg/actuation HFA aerosol inhaler 2 puff PO Q4-6H PRN (Reason: Shortness Of Breath) glipizide 10 mg tablet 10 mg PO BID acetaminophen 500 mg Tablet 1,000 mg PO DAILY PRN (Reason: Pain) insulin degludec [Tresiba FlexTouch U-100] 100 unit/mL (3 mL) insulin pen 12 unit subcut DAILY psyllium husk 0.4 gram capsule 0.8 g PO DAILY PRN (Reason: Constipation) (DME) FreeStyle Lite Strips Strip See Rx Instructions Not Applicable DAILY Qty: 10 Rx Instructions: As directed (DME) lancets [FreeStyle Lancets] 28 gauge misc See Rx Instructions .Route Qty: 100 3RF Rx Instructions: As directed 1x/daily ezetimibe 10 mg tablet 10 mg PO DAILY Qty: 30 11RF sertraline 100 mg tablet 100 mg PO DAILY PRN (Reason: Anxiety) Spiriva Respimat 1.25 mcg/actuation mist 2 puff inhalation DAILY PRN (Reason: Shortness Of Breath Or Wheezing) Held metformin 500 mg tablet extended release 24 hr 1,000 mg PO BID Qty: 360 1RF Hold Instructions: Resume on 10/28/22. Discontinued lisinopril 40 mg tablet 40 mg PO DAILY Discharge Orders: Discharge Order (Routine); Ordered 10/26/22 Ordered By: Rose Marie Vasquez Diet: Advance to usual diet Activity on Discharge: As tolerated Stand Alone Forms: Patient Portal Discharge page Other Ambulatory Orders: Basic Metabolic Panel (Routine) Timeframe: 2 Days Facility: [facility] - Location: Laboratory Ordered By: Rose Marie Vasquez Care Plan Goals: Complete resolution of symptoms Hold metformin and lisinopril until 10/28/2022. Your lisinopril dosed was changed to 20 mg daily Health Concerns: BRAYAN Hyperkalemia Babesia Normocytic anemia Plan of Treatment: Follow-up with primary care provider as needed Follow-up with industrial management teacher for further workup and management of renal artery stenosis Check renal function on Monday Take all medications as prescribed Assessment: See discharge summary
--- NOTE | 2022-10-26 10:57 | MHC.CM.PN ---
Pt medically cleared for D/C home with resumption of [employer]. Pts sepideh Cotter/HCP/[employer]ANDING GEAR INSPECTOR will transport her home.
[2022-10-26 10:59] LABS: Glucose, Whole Blood 252 mg/dL (60-115)
[2022-10-26 11:06] VITALS: BP 115/55; PULSE 56; RESP 20; TEMP 36.1; O2SAT 96
[2022-10-26] MEDS: Insulin Lispro 100 UNIT/ML 3 ML VIAL SUBCUT (11:19)
== END 2022-10-26 11:55 | disposition home or self-care (01) | DRG 683 ==
LOC: HO.ED 11:10 → HO.EDOVER 11:35 → HO.IMC 12:36
PROVIDERS: Admitting Provider Nurse Practitioner Acute Care; Emergency Provider Emergency Medicine; PCP Nurse Practitioner Primary Care; Visit Provider Nurse Practitioner Acute Care
DX: N17.9 Acute kidney failure, unspecified (principal); B60.00 Babesiosis, unspecified; E87.5 Hyperkalemia; I48.0 Paroxysmal atrial fibrillation; N18.30 Chronic kidney disease, stage 3 unspecified; E11.22 Type 2 diabetes mellitus with diabetic chronic kidney disease; E11.43 Type 2 diabetes mellitus with diabetic autonomic (poly)neuropathy; K31.84 Gastroparesis; J45.909 Unspecified asthma, uncomplicated; D64.9 Anemia, unspecified; I12.9 Hypertensive chronic kidney disease with stage 1 through stage 4 chronic kidney disease, or unspecified chronic kidney disease; E86.1 Hypovolemia; D63.1 Anemia in chronic kidney disease; Z91.148 Patient's other noncompliance with medication regimen for other reason; Z87.891 Personal history of nicotine dependence; Z79.4 Long term (current) use of insulin; Z79.01 Long term (current) use of anticoagulants; Z79.84 Long term (current) use of oral hypoglycemic drugs; Z79.899 Other long term (current) drug therapy
CPT/HCPCS: 36415; 76775; 80048; 80053; 81001; 82947; 83615; 83690; 84132; 84300; 84443; 85025; 93005; 93975; 94640; 99285; J2765

== ENCOUNTER → 2022-10-24 08:14 | Outpatient (BNV) | payer OTHER, SELFPAY | PROVIDERS: Emergency Provider Emergency Medicine; PCP Nurse Practitioner Primary Care; Visit Provider Internal Medicine Cardiovascular Disease | DX: R07.9 Chest pain, unspecified (principal) | CPT/HCPCS: 93010 ==

== ENCOUNTER → 2022-10-24 11:31 | Outpatient (BNV) | payer OTHER, SELFPAY | PROVIDERS: Admitting Provider Nurse Practitioner Acute Care; Emergency Provider Emergency Medicine; PCP Nurse Practitioner Primary Care; Visit Provider Nurse Practitioner Acute Care | DX: N17.9 Acute kidney failure, unspecified (principal) | CPT/HCPCS: 99223; 99232; 99239 ==

== ENCOUNTER 2022-10-28 07:41 | Outpatient (REF) | payer OTHER, SELFPAY ==
[2022-10-28 08:57] LABS: Anion Gap 16 (12-20); Blood Urea Nitrogen 16 mg/dL (9-16); Calcium 9.5 mg/dL (8.4-10.2); Carbon Dioxide 18 mmol/L (22-29); Chloride 111 mmol/L (96-108); Estimated Glomerular Filt Rate 34; Glucose Random 158 mg/dL (60-115); Potassium 4.4 mmol/L (3.3-5.1); Sodium 141 mmol/L (135-145)
== END 2022-10-28 07:42 | disposition home or self-care (01) ==
LOC: HO.LAB 07:41
PROVIDERS: PCP Nurse Practitioner Primary Care; Visit Provider Nurse Practitioner Acute Care
DX: E87.5 Hyperkalemia (principal)
CPT/HCPCS: 36415; 80048

== ENCOUNTER 2022-10-31 11:05 | Outpatient (REF) | payer OTHER, SELFPAY ==
[2022-10-31 14:36] LABS: Anion Gap 14 (12-20); Blood Urea Nitrogen 20 mg/dL (9-16); Calcium 9.7 mg/dL (8.4-10.2); Carbon Dioxide 19 mmol/L (22-29); Chloride 113 mmol/L (96-108); Estimated Glomerular Filt Rate 38; Glucose Random 100 mg/dL (60-115); Potassium 4.3 mmol/L (3.3-5.1); Sodium 142 mmol/L (135-145)
[2022-10-31 14:38] LABS: Vitamin D 25-OH Total 48.4 ng/mL (>30)
[2022-10-31 19:21] LABS: Alanine Aminotransferase 57 U/L (0-31); Albumin Level 3.9 g/dL (3.5-5.0); Alkaline Phosphatase 78 U/L (39-117); Aspartate Amino Transferase 35 U/L (5-31); Bilirubin Total 0.6 mg/dL (0.0-1.0); Total Protein 7.3 g/dL (6.5-8.0)
== END 2022-10-31 11:06 | disposition home or self-care (01) ==
LOC: HO.HHCL 11:05
PROVIDERS: Nurse Practitioner; Visit Provider Registered Nurse
DX: E55.9 Vitamin D deficiency, unspecified (principal); N18.32 Chronic kidney disease, stage 3b
CPT/HCPCS: 36415; 80048; 80053; 82306

== ENCOUNTER 2022-11-02 09:33 | Outpatient (REF) | payer OTHER, SELFPAY ==
[2022-11-02 11:22] LABS: MANUAL DIFF FLAG NO
[2022-11-02 11:47] LABS: Basophils Percent Auto 0.6 % (0-2); Eosinophils Absolute Auto 0.1 X10*3/uL (0.0-0.4); Eosinophils Percent Auto 2.1 % (0-4); Hematocrit 32.5 % (37.0-47.0); Hemoglobin 10.6 g/dl (12.0-16.0); Imm Gran Abs Auto 0.02 X10*3/uL (0.00-0.03); Imm Gran Pct Auto 0.4 % (0.0-0.4); Lymphocytes Absolute Auto 1.6 X10*3/uL (1.2-4.9); Lymphocytes Percent Auto 33.7 % (20-40); Mean Corpuscular HGB Conc 32.6 g/dl (31.0-35.0); Mean Corpuscular Hemoglobin 31.8 pg (27.0-33.0); Mean Corpuscular Volume 97.6 fL (80.0-98.0); Mean Platelet Volume 8.9 fL (9.4-12.3); Monocytes Absolute Auto 0.3 X10*3/uL (0.1-1.2); Neutrophils Absolute Auto 2.7 x10*3/uL (2.0-8.3); Neutrophils Percent Auto 56.2 % (45-73); Platelet Count 251 X10*3/uL (160-400); Red Blood Count 3.33 X10*6/uL (4.20-5.50); Red Cell Distribution Width 13.7 % (11.0-16.0); White Blood Count 4.9 X10*3/uL (4.8-10.8)
[2022-11-02 12:14] LABS: Alanine Aminotransferase 43 U/L (0-31); Alkaline Phosphatase 65 U/L (39-117); Anion Gap 15 (12-20); Aspartate Amino Transferase 30 U/L (5-31); Bilirubin Total 0.7 mg/dL (0.0-1.0); Blood Urea Nitrogen 23 mg/dL (9-16); Calcium 10.4 mg/dL (8.4-10.2); Carbon Dioxide 19 mmol/L (22-29); Chloride 112 mmol/L (96-108); Estimated Glomerular Filt Rate 35; Glucose Random 98 mg/dL (60-115); Potassium 4.7 mmol/L (3.3-5.1); Sodium 141 mmol/L (135-145); Total Protein 7.2 g/dL (6.5-8.0)
== END 2022-11-02 09:34 | disposition home or self-care (01) ==
LOC: HO.HHCL 09:33
PROVIDERS: Visit Provider Nurse Practitioner
DX: Z12.11 Encounter for screening for malignant neoplasm of colon (principal)
CPT/HCPCS: 36415; 80053; 85025

== ENCOUNTER 2022-11-21 08:24 | Outpatient (REF) | payer OTHER, SELFPAY ==
[2022-11-21 11:38] LABS: MANUAL DIFF FLAG NO
[2022-11-21 12:01] LABS: Basophils Percent Auto 0.5 % (0-2); Eosinophils Absolute Auto 0.2 X10*3/uL (0.0-0.4); Eosinophils Percent Auto 4.4 % (0-4); Hemoglobin 11.1 g/dl (12.0-16.0); Imm Gran Abs Auto 0.01 X10*3/uL (0.00-0.03); Imm Gran Pct Auto 0.2 % (0.0-0.4); Lymphocytes Percent Auto 36.2 % (20-40); Mean Corpuscular HGB Conc 31.7 g/dl (31.0-35.0); Mean Corpuscular Hemoglobin 32.2 pg (27.0-33.0); Mean Corpuscular Volume 101.4 fL (80.0-98.0); Mean Platelet Volume 8.9 fL (9.4-12.3); Monocytes Absolute Auto 0.4 X10*3/uL (0.1-1.2); Monocytes Percent Auto 6.6 % (2-11); Neutrophils Absolute Auto 2.9 x10*3/uL (2.0-8.3); Neutrophils Percent Auto 52.1 % (45-73); Platelet Count 241 X10*3/uL (160-400); Red Blood Count 3.45 X10*6/uL (4.20-5.50); Red Cell Distribution Width 14.2 % (11.0-16.0); White Blood Count 5.5 X10*3/uL (4.8-10.8)
[2022-11-21 12:36] LABS: Anion Gap 12 (12-20); Blood Urea Nitrogen 15 mg/dL (9-16); Calcium 10.3 mg/dL (8.4-10.2); Carbon Dioxide 25 mmol/L (22-29); Chloride 110 mmol/L (96-108); Estimated Glomerular Filt Rate > 60; Ferritin 63 ng/mL (10-250); Glucose Random 92 mg/dL (60-115); Iron 76 mcg/dL (30-160); Percent Iron Saturation 26 % (15-50); Potassium 4.9 mmol/L (3.3-5.1); Sodium 142 mmol/L (135-145); Total Iron Binding Capacity 291 mcg/dL (228-428); Unsaturated Iron Binding 215 ug/dL
== END 2022-11-21 08:25 | disposition home or self-care (01) ==
LOC: HO.HHCL 08:24
PROVIDERS: Visit Provider Nurse Practitioner Primary Care
DX: R42 Dizziness and giddiness (principal); E11.21 Type 2 diabetes mellitus with diabetic nephropathy; R06.09 Other forms of dyspnea; F17.210 Nicotine dependence, cigarettes, uncomplicated; Z71.6 Tobacco abuse counseling
CPT/HCPCS: 36415; 80048; 82728; 83540; 85025; 99202

== ENCOUNTER 2022-11-21 09:33 | Outpatient (AMB) | payer OTHER, SELFPAY ==
--- NOTE | 2022-11-21 09:47 | A.OFFVIS_ITS ---
Intake Vital Signs 11/21/22 09:49 Height 5 ft 3 in Weight 199 lb 8.293 oz BMI 35.3 BP 144/78 H Blood Pressure Location Rt brachial Position Sitting Pulse 63 Pulse Source Pulse Oximeter Pulse Oximetry (%) 98 Oxygen Delivery Method Room Air Intake Visit Reasons: COPD Intake Note: Pt reports not taking her blood pressure medication this morning. Allergies ibuprofen [IBUPROFEN] Allergy (Severe, Verified 11/21/22 10:36) SICK TO MY STOMACH ciprofloxacin [From CIPRO] Allergy (Intermediate, Verified 11/21/22 10:36) SICK doxycycline Allergy (Intermediate, Verified 11/21/22 10:36) Dizziness levofloxacin [From LEVAQUIN] Allergy (Intermediate, Verified 11/21/22 10:36) SICK , nausea, dizziness x days flu vaccine Allergy (Intermediate, Uncoded 11/21/22 10:36) Swelling Medication List - Last Reconciled 11/21/22 by Kwame Martinez MD acetaminophen 1,000 mg PO DAILY PRN albuterol sulfate 2.5 mg (3 mL) inhalation QID PRN albuterol sulfate 90 mcg/actuation (Ventolin HFA) 2 puffs PO Q4-6H PRN apixaban (Eliquis) 5 mg PO BID azithromycin 250 mg PO Q24H bisacodyl (Dulcolax (bisacodyl)) 20 mg (4 x 5 mg) PO ONCE 1 day blood sugar diagnostic (FreeStyle Lite Strips) As directed cholecalciferol (vitamin D3) 25 mcg PO DAILY diltiazem HCl (Cardizem CD) 180 mg PO DAILY 90 days ezetimibe 10 mg PO DAILY glipizide 10 mg PO BID insulin degludec (Tresiba FlexTouch U-100 insulin) 12 units subcut DAILY lancets (FreeStyle Lancets) As directed 1x/daily lisinopril 20 mg PO DAILY melatonin 1 mg PO BEDTIME metformin ER 1,000 mg (2 x 500 mg) PO BID polyethylene glycol 3350 (Miralax) 238 grams PO ONCE 1 day psyllium husk 0.8 grams PO DAILY PRN rosuvastatin 40 mg PO DAILY sertraline 100 mg PO DAILY PRN tiotropium bromide 1.25 mcg/actuation (Spiriva Respimat) 2 puffs inhalation DAILY PRN Do you need a note to return to daycare/school/sports/work: No HPI COPD HPI Details 62 years old female, is being seen for the 1st time for pulmonary evaluation, has she has a longstanding history of smoking, and symptoms of shortness of breath on exertion. She has been on Spiriva Respimat 1 her 2 inhalations daily but uses only p.r.n.. She has not use albuterol inhaler for long-term. Patient gives history of smoking 1 pack a day for almost 50 years, and quit smoking now 2 years ago. After quitting smoking she gained about 20 lb of weight, but during the past year she has successfully lost much weight. When she used to smoke she had frequent bouts of cough and was getting short of breath on minimal exertion. But after she has quit smoking now her symptoms are much less. She has very little cough , denies any wheezing. She can walk on level ground without any shortness of breath, Only time she gets short of breath is when she climbs stairs. She sleeps good at night, and denies symptoms of sleep apnea. Patient did start participating in annual lung screening program, had a low- dose CT scan in 2020 and not after that. [facility] Medical History (Updated 11/21/22 @ 10:47 by Kwame Martinez MD) Asthma Babesiasis Bronchitis CAD (coronary artery disease) CKD (chronic kidney disease) stage 3, GFR 30-59 ml/min Diabetes Diabetic 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 Dyslipidemia Dyspnea on exertion GERD (gastroesophageal reflux disease) Hypertension Obesity (BMI 30-39.9) Osteopenia Paroxysmal atrial fibrillation Smoking greater than 30 pack years Vitamin D deficiency Surgical History History of esophagogastroduodenoscopy (EGD) Hx of cataract surgery Hx of colonoscopy Hx of foot surgery Family History Father Heart failure Diabetes mellitus Mother Cholangiocarcinoma Diabetes mellitus Family history of hypertension Family history of heart attack Brother Lung cancer Family/Other Breast cancer Sister Social History Household Members: Family Housing: House Do you presently have visiting nurse or other home services: No Alcohol intake: current Alcohol intake frequency: a few times a month Alcohol type: beer Patient Tobacco Use Status: Former Tobacco user Tobacco use type: Cigarette Cigarettes Per Day: 12 Years Smoked: 45 e-Cigarette/Vaping Use: Never Used Advance Directives Date on File: 10/19/22 service: No Current occupational status: unemployed Review of Systems Const All systems reviewed & are unremarkable except as noted in HPI and below Eyes Reports no additional complaints ENT Reports no additional complaints Card Denies chest pain, Denies irregular heart rhythm and Denies leg edema Resp Reports as per HPI GI Reports constipation Reports no additional complaints Musc Reports no additional complaints Skin/Breast Reports system reviewed and no additional complaints, except as documented Neuro Reports no additional complaints Psych Reports no additional complaints Endo Reports other (Diabetes mellitus) Zachery/Lymph Reports no additional complaints Aller/Immun Reports no additional complaints Physical Exam Vital Signs: Last Vital Signs Pulse 63 11/21/22 09:49 BP 144/78 H 11/21/22 09:49 Pulse Ox 98 11/21/22 09:49 Oxygen Delivery Method Room Air 11/21/22 09:49 BMI result Body Mass Index 35.3 Const General: healthy appearing (Except for being overweight), comfortable, no acute distress, alert and awake Orientation/consciousness: patient oriented x3 HEENT Head: Yes normal to inspection General nose exam: No nasal polyps present and No nasal discharge present Face and sinus: Yes sinuses nontender Mouth: oropharynx normal Throat: Yes posterior oropharynx normal Eyes General: appearance normal, both eyes and all related structures Neck Neck: Yes normal visual inspection, Yes no lymphadenopathy, Yes trachea midline and Yes no JVD Thyroid: Thyroid normal Chest Chest palpation & inspection: normal inspection of the chest, normal palpation of entire chest wall and no tenderness Resp Effort & Inspection: normal respiratory effort Auscultation: clear to auscultation bilaterally, no crackles and no wheezes Cardio Palpation: normal PMI Rate: regular rate Rhythm: regular rhythm Heart sounds: no gallops and no murmurs GI Palpation (GI): Soft to palpation, nontender, No hepatosplenomegaly present and no masses Auscultation: normal bowel sounds Back/Spine/Pelvis Thoracic/Lumbar Spine: thoracic and lumbar spine normal to inspection Skin General skin exam: no rashes or lesions noted Neuro General: patient oriented x3 and no focal motor deficits Cranial nerves: Yes CN's II-XII intact bilaterally Extrem General: Yes normal to inspection, Yes no clubbing, cyanosis or edema and Yes no calf tenderness Psych Appearance: grossly normal and well kempt Speech and movement: Normal speech and movement present Assessment & Plan Assessment & Plan (1) Smoking greater than 30 pack years: Comment: Patient gives history of smoking actually for about 50 years, 1 pack a day. Luckily she did quit 2 years ago and continues to be motivated to remain smoke free. She should participate in annual lung screening program for a few years at least. And will be referred for the program. Code(s): F17.210 - Nicotine dependence, cigarettes, uncomplicated (2) Dyspnea on exertion: Comment: She does have history of dyspnea on exertion, which is much less since she quit smoking. She has use Spiriva Respimat in the past now she uses only p.r.n.. NEEDS TO BE EVALUATED FOR CHRONIC OBSTRUCTIVE PULMONARY DISEASE. Referred for pulmonary function test. Encouraged to continue losing weight and also encouraged to do deep breathing exercise. Code(s): R06.09 - Other forms of dyspnea Orders: Orders PFT pulmonary function test Today F17.210 - Nicotine dependence, cigarettes, uncomplicated, R06.09 - Other forms of dyspnea Referrals Thoracic Surgery Referral F17.210 - Nicotine dependence, cigarettes, uncomplicated Coding Level of Care Code New Pt Level 4 (15701) Diagnoses Smoking greater than 30 pack years F17.210 Dyspnea on exertion R06.09
[2022-11-21 09:49] VITALS: BP 144/78; PULSE 63; O2SAT 98; BMI 35.3
== END 2022-11-21 10:34 | disposition home or self-care (01) ==
PROVIDERS: Visit Provider Internal Medicine
DX: F17.210 Nicotine dependence, cigarettes, uncomplicated (principal); R06.09 Other forms of dyspnea
CPT/HCPCS: 99204

== ENCOUNTER 2022-12-22 09:09 | Outpatient (REF) | payer OTHER, SELFPAY ==
--- NOTE | 2022-12-22 09:59 | PFT_ITS ---
FLOWS: 1. FEV1 73% of predicted at 1.72 L. 2. FVC 73% of predicted at 2.15 L. 3. FEV1 to FVC ratio of 0.80. 4. No bronchodilator response. LUNG VOLUMES: 1. Total lung capacity 79% of predicted at 3.90 L. 2. Residual volume of 89% of predicted at 1.82 L. 3. Slow vital capacity 73% of predicted at 2.07 L. 4. Expiratory reserve volume 41% at 0.31 L. 5. Diffusion capacity is moderately decreased. Diffusion capacity adjusted being mildly decreased after correction for alveolar ventilation. IMPRESSION: Moderate restrictive ventilatory defect with no bronchodilator response. Decreased expiratory reserve volume suggests extrathoracic restriction likely secondary to abdominal obesity. Decreased diffusion capacity suggests there was restrictive ventilatory defect to suggest underlying pulmonary parenchymal disease. Clinical correlation is advised. MD SURYA Jackson/MODL / [id number]
== END 2022-12-22 09:10 | disposition home or self-care (01) ==
LOC: HO.RESP 09:09
PROVIDERS: PCP Nurse Practitioner Primary Care; Visit Provider Internal Medicine
DX: R06.09 Other forms of dyspnea (principal); F17.210 Nicotine dependence, cigarettes, uncomplicated
CPT/HCPCS: 94010; 94727; 94729

== ENCOUNTER → 2022-12-22 09:59 | Outpatient (BNV) | payer OTHER, SELFPAY | PROVIDERS: PCP Nurse Practitioner Primary Care; Visit Provider Internal Medicine Pulmonary Disease | DX: R06.09 Other forms of dyspnea (principal) | CPT/HCPCS: 94060; 94727; 94729 ==

== ENCOUNTER 2023-01-25 09:15 | Outpatient (AMB) | payer OTHER, SELFPAY ==
[2023-01-25 09:37] VITALS: BP 130/60; PULSE 62; O2SAT 97; BMI 35.6
--- NOTE | 2023-01-25 09:37 | A.OFFVIS_ITS ---
Intake Vital Signs 01/25/23 09:37 Height 5 ft 3 in Weight 201 lb BMI 35.6 BP 130/60 Blood Pressure Location Lt brachial Position Sitting Pulse 62 Pulse Source Pulse Oximeter Pulse Oximetry (%) 97 Oxygen Delivery Method Room Air Intake Visit Reasons: COPD Intake Note: pt is here for follow up of pft and states she is feeling okay Assistant Inventory Manager Required: No Allergies ibuprofen [IBUPROFEN] Allergy (Severe, Verified 01/25/23 09:52) SICK TO MY STOMACH ciprofloxacin [From CIPRO] Allergy (Intermediate, Verified 01/25/23 09:52) SICK doxycycline Allergy (Intermediate, Verified 01/25/23 09:52) Dizziness levofloxacin [From LEVAQUIN] Allergy (Intermediate, Verified 01/25/23 09:52) SICK , nausea, dizziness x days flu vaccine Allergy (Intermediate, Uncoded 01/25/23 09:52) Swelling Medication List - Last Reconciled 01/25/23 by Kwame Martinez MD acetaminophen 1,000 mg PO DAILY PRN albuterol sulfate 2.5 mg (3 mL) inhalation QID PRN albuterol sulfate 90 mcg/actuation (Ventolin HFA) 2 puffs PO Q4-6H PRN apixaban (Eliquis) 5 mg PO BID bisacodyl (Dulcolax (bisacodyl)) 20 mg (4 x 5 mg) PO ONCE 1 day blood sugar diagnostic (FreeStyle Lite Strips) As directed cholecalciferol (vitamin D3) 25 mcg PO DAILY diltiazem HCl (Cardizem CD) 180 mg PO DAILY 90 days ezetimibe 10 mg PO DAILY glipizide 10 mg PO BID insulin degludec (Tresiba FlexTouch U-100 insulin) 12 units subcut DAILY lancets (FreeStyle Lancets) As directed 1x/daily lisinopril 20 mg PO DAILY melatonin 1 mg PO BEDTIME metformin ER 1,000 mg (2 x 500 mg) PO BID polyethylene glycol 3350 (Miralax) 238 grams PO ONCE 1 day psyllium husk 0.8 grams PO DAILY PRN rosuvastatin 40 mg PO DAILY sertraline 100 mg PO DAILY PRN tiotropium bromide 1.25 mcg/actuation (Spiriva Respimat) 2 puffs inhalation DAILY PRN Do you need a note to return to daycare/school/sports/work: No HPI COPD HPI Details This 62 years old female. With past history. Of smoking and quit 2 years ago She is here. For follow-up after having pulmonary function test She is doing much better and has only occasional cough with shortness of breath when she walks around. She is using albuterol inhaler only as needed. She does have Spiriva Respimat on hand but does not use it regularly. [facility] Medical History (Updated 01/25/23 @ 09:59 by Kwame Martinez MD) Restrictive lung disease Dyspnea on exertion Smoking greater than 30 pack years CKD (chronic kidney disease) stage 3, GFR 30-59 ml/min Babesiasis Paroxysmal atrial fibrillation CAD (coronary artery disease) Asthma Diabetes Bronchitis Obesity (BMI 30-39.9) Vitamin D deficiency Osteopenia Dyslipidemia Hypertension Diabetic 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 GERD (gastroesophageal reflux disease) Surgical History Hx of cataract surgery Hx of foot surgery Hx of colonoscopy History of esophagogastroduodenoscopy (EGD) Family History Father Heart failure Diabetes mellitus Mother Cholangiocarcinoma Diabetes mellitus Family history of hypertension Family history of heart attack Brother Lung cancer Family/Other Breast cancer Sister Social History Household Members: Family Housing: House Do you presently have visiting nurse or other home services: No Alcohol intake: current Alcohol intake frequency: a few times a month Alcohol type: beer Patient Tobacco Use Status: Former Tobacco user Tobacco use type: Cigarette Cigarettes Per Day: 12 Years Smoked: 45 e-Cigarette/Vaping Use: Never Used Advance Directives Date on File: 10/19/22 service: No Current occupational status: unemployed Review of Systems Const All systems reviewed & are unremarkable except as noted in HPI and below Eyes Reports no additional complaints ENT Reports no additional complaints Card Denies chest pain, Denies irregular heart rhythm and Denies leg edema Resp Reports as per HPI GI Reports constipation Reports no additional complaints Musc Reports no additional complaints Skin/Breast Reports system reviewed and no additional complaints, except as documented Neuro Reports no additional complaints Psych Reports no additional complaints Endo Reports other (Diabetes mellitus) Zachery/Lymph Reports no additional complaints Aller/Immun Reports no additional complaints Physical Exam Vital Signs: Last Vital Signs Pulse 62 01/25/23 09:37 BP 130/60 01/25/23 09:37 Pulse Ox 97 01/25/23 09:37 Oxygen Delivery Method Room Air 01/25/23 09:37 BMI result Body Mass Index 35.6 Const General: healthy appearing (Except for being overweight), comfortable, no acute distress, alert and awake Orientation/consciousness: patient oriented x3 HEENT Head: Yes normal to inspection General nose exam: No nasal polyps present and No nasal discharge present Face and sinus: Yes sinuses nontender Mouth: oropharynx normal Throat: Yes posterior oropharynx normal Eyes General: appearance normal, both eyes and all related structures Neck Neck: Yes normal visual inspection, Yes no lymphadenopathy, Yes trachea midline and Yes no JVD Thyroid: Thyroid normal Chest Chest palpation & inspection: normal inspection of the chest, normal palpation of entire chest wall and no tenderness Resp Effort & Inspection: normal respiratory effort Auscultation: clear to auscultation bilaterally, no crackles and no wheezes Cardio Palpation: normal PMI Rate: regular rate Rhythm: regular rhythm Heart sounds: no gallops and no murmurs GI Palpation (GI): Soft to palpation, nontender, No hepatosplenomegaly present and no masses Auscultation: normal bowel sounds Back/Spine/Pelvis Thoracic/Lumbar Spine: thoracic and lumbar spine normal to inspection Skin General skin exam: no rashes or lesions noted Neuro General: patient oriented x3 and no focal motor deficits Cranial nerves: Yes CN's II-XII intact bilaterally Extrem General: Yes normal to inspection, Yes no clubbing, cyanosis or edema and Yes no calf tenderness Psych Appearance: grossly normal and well kempt Speech and movement: Normal speech and movement present Results Reviewed Results Reviewed: PULMONARY FUNCTION TEST. SHE HAS MILD RESTRICTIVE PULMONARY DISORDER. NO DEFINITE OBSTRUCTIVE AIRWAY DISORDER AND NO SIGNIFICANT RESPONSE TO BRONCHODILATOR THERAPY. Assessment & Plan Assessment & Plan (1) Dyspnea on exertion: Comment: She does have history of dyspnea on exertion, which is much less since she quit smoking. She has use Spiriva Respimat in the past now she uses only p.r.n.. NEEDS TO BE EVALUATED FOR CHRONIC OBSTRUCTIVE PULMONARY DISEASE. PULMONARY FUNCTION TEST CONSISTENT WITH MILD RESTRICTIVE LUNG DISEASE, . NO DEFINITE OBSTRUCTIVE DISORDER TX : USE ALBUTEROL HFA 2 PUFFS Q 4-6 HOURS ONLY P.R.N. IF THERE IS ANY CHEST CONGESTION OR WHEEZING NO NEED TO USE SPIRIVA RESPIMAT. Code(s): R06.09 - Other forms of dyspnea (2) Restrictive lung disease: Comment: PER PFT SHE HAS MILD RESTRICTIVE DISORDER WHICH IS DUE TO HER OBESITY. INSTRUCTED TO KEEP, ON LOSING WEIGHT ALSO INSTRUCTED TO DO DEEP BREATHING EXERCISES AT LEAST 3 TIMES A DAY. Code(s): J98.4 - Other disorders of lung (3) Smoking greater than 30 pack years: Comment: Patient gives history of smoking actually for about 50 years, 1 pack a day. Luckily she did quit 2 years ago and continues to be motivated to remain smoke free. She is participating in Annual lung screening program for a few years at least. Code(s): F17.210 - Nicotine dependence, cigarettes, uncomplicated Coding Level of Care Code Est Pt Level 3 (61885) Diagnoses Dyspnea on exertion R06.09 Restrictive lung disease J98.4 Smoking greater than 30 pack years F17.210
== END 2023-01-25 09:53 | disposition home or self-care (01) ==
PROVIDERS: PCP Nurse Practitioner Primary Care; Visit Provider Internal Medicine
DX: R06.09 Other forms of dyspnea (principal); J98.4 Other disorders of lung; F17.210 Nicotine dependence, cigarettes, uncomplicated
CPT/HCPCS: 99213

== ENCOUNTER → 2023-01-25 09:15 | Outpatient (BNVA) | payer OTHER, SELFPAY | PROVIDERS: PCP Nurse Practitioner Primary Care; Visit Provider Internal Medicine | DX: R06.09 Other forms of dyspnea (principal); J98.4 Other disorders of lung; F17.210 Nicotine dependence, cigarettes, uncomplicated | CPT/HCPCS: 99212 ==

== ENCOUNTER 2023-02-17 08:46 | Day surgery (SDC) | payer OTHER, SELFPAY ==
--- NOTE | 2023-02-16 11:42 | HO.ANESPROP2 ---
Documented by User: Gabriela Aguilar NP 02/16/23 11:45 HPI - Anesthesia Eval Consult details Narrative: 62yo F for Colonoscopy Eliquis for afib Follows [facility] cardiology. Last office visit 10/2022. Stable except some dizziness. No further w/u or change in treatment plan by cardiol, advised adequate hydration. CAD and afib stable PMFSH Active Problems Active Problems: All Active Problems (Updated 01/25/23 @ 09:59 by Kwame Martinez MD) Restrictive lung disease (Acute) Dyspnea on exertion (Acute) Smoking greater than 30 pack years (Acute) Pre-op examination (Acute) Chest discomfort (Acute) Adhesive capsulitis of both shoulders (Acute) Shoulder pain (Acute) Thoracic back pain (Acute) GERD (gastroesophageal reflux disease) (Acute) Obesity due to excess calories (Acute) DM2 (diabetes mellitus, type 2) (Acute) Paroxysmal atrial fibrillation (Acute) CAD (coronary artery disease) (Acute) Abnormal nuclear cardiac imaging test (Acute) Diabetes (Acute) Hypertension (Acute) Pneumonia (Acute) Constipation (Acute) Gastroparesis (Acute) Adhesive capsulitis of right shoulder (Acute) Colon cancer screening (Acute) Family history of polyps in the colon (Acute) Pneumonia (Acute) Vitamin D deficiency (Acute) Osteopenia (Acute) Diabetic 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 (Acute) Past Medical History Medical History Restrictive lung disease Dyspnea on exertion Smoking greater than 30 pack years CKD (chronic kidney disease) stage 3, GFR 30-59 ml/min Babesiasis Paroxysmal atrial fibrillation CAD (coronary artery disease) Asthma Diabetes Bronchitis Obesity (BMI 30-39.9) Vitamin D deficiency Osteopenia Dyslipidemia Hypertension Diabetic 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 GERD (gastroesophageal reflux disease) Family History Family History Father Heart failure Diabetes mellitus Mother Cholangiocarcinoma Diabetes mellitus Family history of hypertension Family history of heart attack Brother Lung cancer Family/Other Breast cancer Sister Surgical History Surgical History Hx of cataract surgery Hx of foot surgery Hx of colonoscopy History of esophagogastroduodenoscopy (EGD) History of Problems with Anesthesia: No Social History Social History Household Members: Family Housing: House Do you presently have visiting nurse or other home services: No Alcohol intake: current Alcohol intake frequency: a few times a month Alcohol type: beer Patient Tobacco Use Status: Former Tobacco user Tobacco use type: Cigarette Cigarettes Per Day: 12 Years Smoked: 45 e-Cigarette/Vaping Use: Never Used Use of substances other than those prescribed or required for medical reasons: No Are you DNR?: No Advance Directives: No Advance Directives Information Provided: Yes Advance Directives Date on File: 10/19/22 service: No Current occupational status: unemployed Meds Allergies Allergy/AdvReac Type Severity Reaction Status Date / Time ibuprofen [IBUPROFEN] Allergy Severe SICK TO Verified 01/25/23 09:52 MY STOMACH ciprofloxacin [From CIPRO] Allergy Intermediate SICK Verified 01/25/23 09:52 doxycycline Allergy Intermediate Dizziness Verified 01/25/23 09:52 levofloxacin [From LEVAQUIN] Allergy Intermediate SICK , Verified 01/25/23 09:52 nausea, dizziness x days flu vaccine Allergy Intermediate Swelling Uncoded 01/25/23 09:52 Home Medications Medication Instructions Recorded Confirmed Last Taken Type sertraline 100 mg tablet 100 mg PO DAILY PRN Anxiety 02/26/20 11/21/22 12/28/20 History albuterol sulfate 90 mcg/actuation 2 puff PO Q4-6H PRN Shortness Of 12/28/20 11/21/22 01/01/21 History aerosol inhaler (Ventolin HFA) Breath blood sugar diagnostic (FreeStyle #10 ea 06/23/21 11/21/22 Unknown History Lite Strips) tiotropium bromide 1.25 2 puff inhalation DAILY PRN 01/21/22 11/21/22 Unknown History mcg/actuation mist for inhalation Shortness Of Breath Or Wheezing (Spiriva Respimat) acetaminophen 500 mg tablet 1,000 mg PO DAILY PRN Pain 10/24/22 11/21/22 Unknown History glipizide 10 mg tablet 10 mg PO BID 10/24/22 02/15/23 Unknown History insulin degludec 100 unit/mL (3 12 unit subcut DAILY 10/24/22 02/15/23 Unknown History mL) subcutaneous pen (Tresiba FlexTouch U-100 insulin) psyllium husk 0.4 gram capsule 0.8 g PO DAILY PRN Constipation 10/24/22 11/21/22 Unknown History melatonin 1 mg tablet 1 mg PO BEDTIME 11/21/22 11/21/22 Unknown History Exam Pertinent Lab Results Pertinent Lab Results: Laboratory Tests 11/21/22 08:27 WBC 5.5 Hgb 11.1 L Hct 35.0 L Plt Count 241 Sodium 142 Potassium 4.9 Chloride 110 H Carbon Dioxide 25 BUN 15 Creatinine 0.92 Narrative Narrative: EKG 10/2022 normal sinus rhythm with poor R-wave progression, most likely placement with no acute ST T wave changes ECHO 10/2022 Conclusions: - 1. Normal LV systolic function with grade 1 diastolic dysfunction 2. Normal cardiac valvular Dopplers 3. Normal RV systolic pressure 4. No pericardial effusion PULMONARY FUNCTION TEST. 12/2022 SHE HAS MILD RESTRICTIVE PULMONARY DISORDER. NO DEFINITE OBSTRUCTIVE AIRWAY DISORDER AND NO SIGNIFICANT RESPONSE TO BRONCHODILATOR THERAPY. Assessment and Plan Assessment Anesthesia Assessment: Chart Reviewed Final Anesthetic Review History of Problems with Anesthesia: No Documented by User: Marisol Gee MD 02/17/23 10:36 [facility] Past Medical History Medical History Restrictive lung disease Dyspnea on exertion Smoking greater than 30 pack years CKD (chronic kidney disease) stage 3, GFR 30-59 ml/min Babesiasis Paroxysmal atrial fibrillation CAD (coronary artery disease) Asthma Diabetes Bronchitis Obesity (BMI 30-39.9) Vitamin D deficiency Osteopenia Dyslipidemia Hypertension Diabetic 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 GERD (gastroesophageal reflux disease) Family History Family History Father Heart failure Diabetes mellitus Mother Cholangiocarcinoma Diabetes mellitus Family history of hypertension Family history of heart attack Brother Lung cancer Family/Other Breast cancer Sister Family history of problems with anesthesia: No Surgical History Surgical History Hx of cataract surgery Hx of foot surgery Hx of colonoscopy History of esophagogastroduodenoscopy (EGD) Social History Social History Household Members: Family Housing: House Do you presently have visiting nurse or other home services: No Alcohol intake: current Alcohol intake frequency: a few times a month Alcohol type: beer Patient Tobacco Use Status: Former Tobacco user Tobacco use type: Cigarette Cigarettes Per Day: 12 Years Smoked: 45 e-Cigarette/Vaping Use: Never Used Use of substances other than those prescribed or required for medical reasons: No Are you DNR?: No Advance Directives: No Advance Directives Information Provided: Yes Advance Directives Date on File: 10/19/22 service: No Current occupational status: unemployed Meds Allergies Allergy/AdvReac Type Severity Reaction Status Date / Time ibuprofen [IBUPROFEN] Allergy Severe SICK TO Verified 01/25/23 09:52 MY STOMACH ciprofloxacin [From CIPRO] Allergy Intermediate SICK Verified 01/25/23 09:52 doxycycline Allergy Intermediate Dizziness Verified 01/25/23 09:52 levofloxacin [From LEVAQUIN] Allergy Intermediate SICK , Verified 01/25/23 09:52 nausea, dizziness x days flu vaccine Allergy Intermediate Swelling Uncoded 01/25/23 09:52 Home Medications Medication Instructions Recorded Confirmed Last Taken Type sertraline 100 mg tablet 100 mg PO DAILY PRN Anxiety 02/26/20 11/21/22 12/28/20 History albuterol sulfate 90 mcg/actuation 2 puff PO Q4-6H PRN Shortness Of 12/28/20 11/21/22 01/01/21 History aerosol inhaler (Ventolin HFA) Breath blood sugar diagnostic (FreeStyle #10 ea 06/23/21 11/21/22 Unknown History Lite Strips) tiotropium bromide 1.25 2 puff inhalation DAILY PRN 01/21/22 11/21/22 Unknown History mcg/actuation mist for inhalation Shortness Of Breath Or Wheezing (Spiriva Respimat) acetaminophen 500 mg tablet 1,000 mg PO DAILY PRN Pain 10/24/22 11/21/22 Unknown History glipizide 10 mg tablet 10 mg PO BID 10/24/22 02/15/23 Unknown History insulin degludec 100 unit/mL (3 12 unit subcut DAILY 10/24/22 02/15/23 Unknown History mL) subcutaneous pen (Tresiba FlexTouch U-100 insulin) psyllium husk 0.4 gram capsule 0.8 g PO DAILY PRN Constipation 10/24/22 11/21/22 Unknown History melatonin 1 mg tablet 1 mg PO BEDTIME 11/21/22 11/21/22 Unknown History Exam Airway Mallampati Class: II TM Dist: >3cm Neck ROM: Limited Heart: rrr Lungs: cta Assessment and Plan Assessment Anesthesia Assessment: Anesthesia Plan Discussed Final Anesthetic Review Family History of Problems with Anesthesia: No NPO: Yes ASA Class: III Final Preanesthetic Review: No Changes in Pt Med Stat, Meds/Allgs Chart Reviewed, Consent Obtained/Reviewed and Anes Risks/Benef Reviewed Patient Risk: Intermediate Procedure Risk: Low Anesthetic Plan Anesthetic Plan: MAC: Disposition: Standard PACU
[2023-02-17 10:14] VITALS: BP 157/73; PULSE 74; RESP 20; TEMP 36.1; O2SAT 96; BMI 35.2
--- NOTE | 2023-02-17 10:18 | MHC.SHP ---
Pre-Procedural Eval Section A Date of Service: 02/17/23 The patient is an INPATIENT: No The History & Physical has been completed within 30 days and I have reviewed it.: No Section B Chief Complaint: Surveillance for colon polyps Relevant Family History (Specify if Yes): No Relevant Social History: Tobacco Use Present Medications: see Short Stay Collaborative assessment Medical History: Significant History (Atrial fibrillation Bronchitis CAD (coronary artery disease) Diabetes Diabetic 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 Dyslipidemia GERD (gastroesophageal reflux disease) Hypertension Obesity (BMI 30-39.9) Obesity due to excess calories Osteopenia Paroxysmal atrial fibrillation Type 2 d) History of Previous Operations: Relevant previous surgery/procedure and date(s) (History of esophagogastroduodenoscopy (EGD) Hx of cataract surgery Hx of colonoscopy Hx of foot surgery) Allergies: Allergies Allergy/AdvReac Type Severity Reaction Status Date / Time ibuprofen [IBUPROFEN] Allergy Severe SICK TO Verified 01/25/23 09:52 MY STOMACH ciprofloxacin [From CIPRO] Allergy Intermediate SICK Verified 01/25/23 09:52 doxycycline Allergy Intermediate Dizziness Verified 01/25/23 09:52 levofloxacin [From LEVAQUIN] Allergy Intermediate SICK , Verified 01/25/23 09:52 nausea, dizziness x days flu vaccine Allergy Intermediate Swelling Uncoded 01/25/23 09:52 Exam Surgical H&P Exam: Normal: Heart, Normal: Lungs, Normal: Extremities and Normal: Abdomen Plan Diagnosis/Plan: Unchanged I have reviewed the history and physical and performed a pertinent physical examination on my patient. No changes have occurred unless specified. Time Spent With Patient Time: Total time managing care of this patient today ____ minutes.
--- NOTE | 2023-02-17 10:43 | W.PM.OPN ---
Operative Note Operative Note Date of Service: 02/17/23 Narrative: COLONOSCOPY TILL CECUM WITH BIOPSIES AND SNARE POLYPECTOMY Pre-op diagnosis: Surveillance for colon polyps Post-op diagnosis:? Colon polyps, diverticulosis, hemorrhoids Endoscopist:? Clary Godinez MD Anesthesia:?MAC Consent: Indications for the procedure and potential complications of bleeding, perforation, reaction to medications and missed diagnosis were discussed with the patient and informed consent was obtained. Instrument: Olympus PCF H 190 L variable stiffness pediatric colonoscope Monitoring: Vital signs and clinical assessment, intermittent blood pressure monitoring, continuous EKG monitoring, Pulse oximetry and Carbon Dioxide monitoring were done throughout the procedure. Please see anesthesia flowsheet. Colon withdrawl time was 21 minutes. Procedure: The patient was placed in the left lateral decubitis position and pre-procedure medications were administered. After a digital rectal examination of the ano-rectum, the video colonoscope was inserted into the rectum and advanced through the colon to the cecum. The colonoscope was slowly withdrawn in a retrograde panoramic fashion and the colon mucosa was carefully examined including a retroflexed view of the rectum. Findings and interventions are described below. Procedure Difficulty: Without difficulty Findings: Terminal Ileum: Not evaluated Cecum: Normal Ascending Colon: A 2-3 mm sessile polyp in the distal ascending colon - removed with a cold biopsy. An 8-9 mm sessile polyp - removed with a cold snare Transverse Colon: A 7-8 mm sessile polyp - removed with a cold snare Descending Colon: Moderate diverticulosis Sigmoid Colon: Severe diverticulosis with luminal narrowing Rectum: A 1 x 2 cms polypoidal area just proximal to the anal verge - adjacent to hemorrhoids - biopsied with a cold snare. Ano-rectum: Moderate internal hemorrhoids Colon preparation: Good in the right and transvers colon and fair in the left colon due to solid stool balls - related to diverticulosis. Impression and Post Procedure Diagnosis: Colonoscopy Findings: Three polyps removed A 1 x 2 cms polypoidal area just proximal to the anal verge - adjacent to hemorrhoids - biopsied with a cold snare. Moderate diverticulosis seen in the []colon Moderate hemorrhoids on retroflexed exam. Plan: Await pathology results Patient has an appointment on 02/28/23 in the [facility] with Shantel Vincent NP. Repeat Colonoscopy interval based on path results - in 3-5 years if polyps are adenomatous and due to a hx of adenomatous colon polyps. If biopsies from the rectum shows adenomatous tissue, pt needs to be scheduled for a Flex sig with colon prep and 2 fleet enemas in 3-4 months Above findings were reviewed with the patient and colon polyps and diverticulosis handouts were given in the discharge area
[2023-02-17] MEDS: Lactated Ringers 1,000 ML 100 ML IVCONT (10:47)
[2023-02-17 10:51] LABS: Glucose, Whole Blood 137 mg/dL (60-115)
[2023-02-17 11:46] VITALS: BP 91/32; PULSE 91; RESP 17; TEMP 36.6; O2SAT 98
[2023-02-17 12:01] VITALS: BP 114/62; PULSE 77; RESP 16; TEMP 36.6; O2SAT 97
== END 2023-02-17 12:30 | disposition home or self-care (01) ==
PROVIDERS: PCP Nurse Practitioner Primary Care; Visit Provider Internal Medicine Gastroenterology
PROC: 0DJD8ZZ Inspection of Lower Intestinal Tract, Via Natural or Artificial Opening Endoscopic (ICD-10-PCS; CPT 45378; principal; 2023-02-17 10:30)
DX: Z12.11 Encounter for screening for malignant neoplasm of colon (principal); D01.1 Carcinoma in situ of rectosigmoid junction; D12.2 Benign neoplasm of ascending colon; D12.3 Benign neoplasm of transverse colon; K56.699 Other intestinal obstruction unspecified as to partial versus complete obstruction; K57.30 Diverticulosis of large intestine without perforation or abscess without bleeding; K64.8 Other hemorrhoids; Z86.010 Personal history of colon polyps; K21.9 Gastro-esophageal reflux disease without esophagitis; E11.9 Type 2 diabetes mellitus without complications; I10 Essential (primary) hypertension; E55.9 Vitamin D deficiency, unspecified; K31.84 Gastroparesis; J98.4 Other disorders of lung; R06.09 Other forms of dyspnea; F17.210 Nicotine dependence, cigarettes, uncomplicated; E66.9 Obesity, unspecified; Z68.37 Body mass index [BMI] 37.0-37.9, adult
CPT/HCPCS: 45385; 45380; 82947; 88305; 88341; 88342; J2704

== ENCOUNTER → 2023-02-17 08:46 | Outpatient (BNV) | payer OTHER, SELFPAY | PROVIDERS: PCP Nurse Practitioner Primary Care; Visit Provider Internal Medicine Gastroenterology | DX: Z12.11 Encounter for screening for malignant neoplasm of colon (principal); K57.30 Diverticulosis of large intestine without perforation or abscess without bleeding; K64.8 Other hemorrhoids; D12.2 Benign neoplasm of ascending colon; D12.3 Benign neoplasm of transverse colon; D12.8 Benign neoplasm of rectum | CPT/HCPCS: 45380; 45385 ==

== ENCOUNTER 2023-02-20 08:00 | Outpatient (REF) | payer OTHER, SELFPAY | END 2023-02-20 08:01 | disposition home or self-care (01) | LOC: HO.MAMMO 08:00 | PROVIDERS: PCP Nurse Practitioner Primary Care; Visit Provider Nurse Practitioner Primary Care | DX: Z12.31 Encounter for screening mammogram for malignant neoplasm of breast (principal) | CPT/HCPCS: 77063; 77067 ==

== ENCOUNTER → 2023-02-20 08:15 | Outpatient (BNV) | payer OTHER, SELFPAY | PROVIDERS: PCP Nurse Practitioner Primary Care; Visit Provider Radiology Diagnostic Radiology | DX: Z12.31 Encounter for screening mammogram for malignant neoplasm of breast (principal) | CPT/HCPCS: 77063; 77067 ==

== ENCOUNTER 2023-02-28 08:40 | Outpatient (AMB) | payer OTHER, SELFPAY ==
--- NOTE | 2023-02-28 08:45 | A.OFFVIS_ITS ---
Intake Vital Signs 02/28/23 08:46 Height 5 ft 3 in Weight 200 lb 9.93 oz BMI 35.5 BP 166/73 H Blood Pressure Location Lt brachial Position Sitting Pulse 73 Intake Visit Reasons: S/P Martell; Dr. Godinez Intake Note: Patient presents to in office today in follow up colonoscopy. CC: Patient underwent colonoscopy on 02/17/[address] Godinez. She states she was called by Dr. Godinez yesterday and told she was found to have cancer in colonosco py. Patient reports an episode of rectal pressure and loose BM with a ball of blood . She also reports a couple episodes of lower abdominal pain. Allergies ibuprofen [IBUPROFEN] Allergy (Severe, Verified 02/28/23 08:51) SICK TO MY STOMACH ciprofloxacin [From CIPRO] Allergy (Intermediate, Verified 02/28/23 08:51) SICK doxycycline Allergy (Intermediate, Verified 02/28/23 08:51) Dizziness levofloxacin [From LEVAQUIN] Allergy (Intermediate, Verified 02/28/23 08:51) SICK , nausea, dizziness x days flu vaccine Allergy (Intermediate, Uncoded 01/25/23 09:52) Swelling HPI S/P Martell; Dr. Godinez HPI Details Assessment & Plan (1) GERD (gastroesophageal reflux diseas e): Code(s): K21.9 - Gastro-esophageal reflux disease without esophagitis Qualifiers: Esophagitis presence: with esophagitis Plan: She is doing well. She cut out many foods including spaghetti sauce, hot/spicy foods, full fat milk, acidy things, etc. With this she only has occasional HB which she manages with TUMS. She manges her gastroparesis with meal management, if she skips breakfast she will have troubles with bloating and post prandial BM's. With this, I am not treating her actively, but she is due for a repeat colonoscopy r/t her large TA's [id number]. She is agreeable to ordering this. There are no prior problems with anesthesia or sedation. Her cardiac problems are well controlled but she does have AFib and is on Xarelto and she feels her asthma is well controlled. There are no known infectious disease problems. Again she had a large TA in 2020. I will see her after the colonoscopy. She needs to update her labs for anesthesia purposes so I have ordered a CBC and Chem profile and she is aware she needs to go to this now or at least a few weeks before her procedure so we can have the results. (2) Gastroparesis: Comment: Patient could not tolerate Reglan so she is advised to eat smaller more frequent meals and should her condition worse we may need consider referral for consideration of gastric pacemaker at a tertiary center aeb Code(s): K31.84 - Gastroparesis (3) Constipation: Code(s): K59.00 - Constipation, unspecified (4) Family history of polyps in the colo n: Comment: Brother, scope 2020= 2TA repeat 5 years Code(s): Z83.71 - Family history of colonic polyps (5) Colon cancer screening: Comment: Last scope in 2010 and was negative but patient now has a new family history of colon polyps and is overdue Code(s): Z12.11 - Encounter for screening for malignant neoplasm of colon (6) Pre-op examination: Code(s): Z01.818 - Encounter for other preprocedural examination Orders: Orders Comprehensive Met. Panel 07/15/22 Z12.11 - Encounter for screening for malignant neoplas m of colon Complete Blood Cou nt Auto Diff 07/15/22 Z12.11 - Encounter for screening for malignant neoplas m of colon LABS: Laboratory Tests 11/02/22 11/21/22 11/21/22 09:37 08:27 08:27 WBC 5.5 Hgb 11.1 L Hct 35.0 L MCV 101.4 H Estimated GFR > 60 Total Bilirubin 0.7 AST 30 ALT 43 H Alkaline Phosphata se 65 03/03/23 06:21 WBC 8.4 Hgb 12.7 Hct 38.5 MCV Estimated GFR Total Bilirubin AST ALT Alkaline Phosphata se COLONOSCOPY 02/17/23 Findings: Terminal Ileum: Not evaluated Cecum: Normal Ascending Colon: A 2-3 mm sessile polyp in the distal ascending colon - removed with a cold biopsy. An 8-9 mm sessile polyp - removed with a cold snare Transverse Colon: A 7-8 mm sessile polyp - removed with a cold snare Descending Colon: Moderate diverticulosis Sigmoid Colon: Severe diverticulosis with luminal narrowing Rectum: A 1 x 2 cms polypoidal area just proximal to the anal verge - adjacent to hemorrhoids - biopsied with a cold snare. Ano-rectum: Moderate internal hemorrhoids Colon preparation: Good in the right and transvers colon and fair in the left colon due to solid stool balls - related to diverticulosis. Impression and Post Procedure Diagnosis: Colonoscopy Findings: Three polyps removed A 1 x 2 cms polypoidal area just proximal to the anal verge - adjacent to hemorrhoids - biopsied with a cold snare. Moderate diverticulosis seen in the []colon Moderate hemorrhoids on retroflexed exam. Plan: Await pathology results Patient has an appointment on 02/28/23 in the [facility] with Shantel Vincent NP. Repeat Colonoscopy interval based on path results - in 3-5 years if polyps are adenomatous and due to a hx of adenomatous colon polyps. If biopsies from the rectum shows adenomatous tissue, pt needs to be scheduled for a Flex sig with colon prep and 2 fleet enemas in 3-4 months BIOPSY Received: 02/17/23 Diagnosis A. Colon, transverse, polyp: Tubular adenoma, likely excised; negative for high-grade dysplasia and carcinoma. B. Colon, ascending, polyps: Tubular adenomas (2 pieces); negative for high- grade dysplasia and carcinoma. C. Colon, rectal polyp: Superficial invasive squamous cell carcinoma, poorly- differentiated, and squamous cell carcinoma in situ, fragmented....... * CORRESPONDENCE CHART note from Dr. Mcmahon. On 02/27/23 @ 18:01 Clary Godinez Wrote To Shantel Vincent (2) FYI Pt has an appt with you on 02/28/23 On 02/27/23 @ 17:46 Clary Godinez Wrote To Clary Godinez Biopsies showed: A. Colon, transverse, polyp: Tubular adenoma, likely excised; negative for high- grade dysplasia and carcinoma. B. Colon, ascending, polyps: Tubular adenomas (2 pieces); negative for high- grade dysplasia and carcinoma. C. Colon, rectal polyp: Superficial invasive squamous cell carcinoma, poorly- differentiated, and squamous cell carcinoma in situ, fragmented Pt called and biopsy results reviewed with the patient and her son. Patient was advised to schedule chest abdomen and pelvic CT scan. Urgent referral sent to Oncology to discuss treatment with chemo/XRT TODAY'S VISIT She is leaving next week to go to [place] and will return 04/07. I educate her on the finding of squamous cell carcinoma of the rectum. I let know that this is extremely rare cancer but can progressed very quickly so it is extremely important that she have an urgent follow-up with Oncology and the imaging studies that we are requesting. The sooner she has treatment the better her oz of survival. I will have her follow-up with me in April just to make absolutely sure that nothing has fallen through the cracks and she is getting the attention that she needs. [facility] Medical History Restrictive lung disease Dyspnea on exertion Smoking greater than 30 pack years CKD (chronic kidney disease) stage 3, GFR 30-59 ml/min Babesiasis Paroxysmal atrial fibrillation CAD (coronary artery disease) Asthma Diabetes Bronchitis Obesity (BMI 30-39.9) Vitamin D deficiency Osteopenia Dyslipidemia Hypertension Diabetic 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 GERD (gastroesophageal reflux disease) Surgical History Hx of cataract surgery Hx of foot surgery Hx of colonoscopy History of esophagogastroduodenoscopy (EGD) Family History Father Heart failure Diabetes mellitus Mother Cholangiocarcinoma Diabetes mellitus Family history of hypertension Family history of heart attack Brother Lung cancer Family/Other Breast cancer Sister Social History Household Members: Family Housing: House Do you presently have visiting nurse or other home services: No Alcohol intake: current Alcohol intake frequency: a few times a month Alcohol type: beer Patient Tobacco Use Status: Former Tobacco user Tobacco use type: Cigarette Cigarettes Per Day: 12 Years Smoked: 45 e-Cigarette/Vaping Use: Never Used Advance Directives Date on File: 10/19/22 service: No Current occupational status: unemployed Review of Systems Const Denies fatigue, Denies fever(s), Denies night sweats, Denies poor appetite and Denies weight loss ENT Reports Normal hearing present, Denies dental pain, Denies dysphagia, Denies hearing loss, Denies mouth pain, Denies odynophagia, Denies throat swelling, Denies tongue swelling and Reports other (Dentition adequate) Card Reports no additional complaints Resp Reports no additional complaints GI Denies abdominal pain, Denies melena, Denies bloating, Denies hematochezia, Reports constipation, Denies GI cramping, Denies dysphagia, Denies excessive flatus, Denies early satiety, Reports heartburn, Denies diarrhea, Denies nausea, Denies odynophagia, Denies vomiting and Denies hematemesis Skin/Breast Denies pruritus, Denies lesions, Denies rash and Denies jaundice Neuro Reports Normal hearing present and Denies Abnormal speech present Endo Denies fatigue Aller/Immun Denies throat swelling and Denies tongue swelling Physical Exam Vital Signs: Last Vital Signs Pulse 73 02/28/23 08:46 BP 166/73 H 02/28/23 08:46 BMI result Body Mass Index 35.5 Const General: cooperative, no acute distress, well developed and well groomed Nutritional Appearance: well nourished and obese Orientation/consciousness: oriented to person, oriented to place and oriented to time Limitations: language barrier HEENT Head: Yes normocephalic and Yes atraumatic Eyes General: appearance normal, both eyes and all related structures Pupils: Equal, round and reactive pupils present Neck Neck: Yes normal visual inspection and Yes no lymphadenopathy Thyroid: Thyroid normal Resp Effort & Inspection: normal respiratory effort and able to speak in complete sentences Auscultation: clear to auscultation bilaterally Cardio Rate: regular rate Rhythm: regular rhythm Heart sounds: Normal, physiologic split S2 sound present Peripheral pulses: radial pulses present and posterior tibial pulses present GI Inspection: No distended, Yes Abdominal panniculus present and Yes obesity Palpation (GI): Soft to palpation, nontender, no guarding, not rigid and No h epatosplenomegaly present Percussion: Yes normal to percussion Auscultation: normal bowel sounds Rectal Exam - Female: deferred Skin General skin exam: no rashes or lesions noted, turgor normal, skin not dry, no jaundice, No spider nevi and no striae Rashes: no rashes Nails: normal Neuro General: oriented to person, oriented to place and oriented to time Cranial nerves: Yes Equal, round and reactive pupils present and Yes Normal hearing present Speech: No Abnormal speech present Extrem General: Yes normal to inspection, No clubbing, No cyanosis and No edema Psych Appearance: grossly normal and well kempt Mental Status: mental status grossly normal Speech and movement: Normal speech and movement present Affect: normal affect Attitude: cooperative Thought process: Normal thought process present and not confabulating Thought content: Normal thought content present Insight: Limited insight present (Psych) Judgement: Limited judgement present (Psych) Results Reviewed Results Reviewed: Laboratory Tests 11/02/22 11/21/22 11/21/22 09:37 08:27 08:27 WBC 5.5 Hgb 11.1 L Hct 35.0 L MCV 101.4 H Estimated GFR > 60 Total Bilirubin 0.7 AST 30 ALT 43 H Alkaline Phosphatase 65 03/03/23 06:21 WBC 8.4 Hgb 12.7 Hct 38.5 MCV Estimated GFR Total Bilirubin AST ALT Alkaline Phosphatase COLONOSCOPY 02/17/23 Findings: Terminal Ileum: Not evaluated Cecum: Normal Ascending Colon: A 2-3 mm sessile polyp in the distal ascending colon - removed with a cold biopsy. An 8-9 mm sessile polyp - removed with a cold snare Transverse Colon: A 7-8 mm sessile polyp - removed with a cold snare Descending Colon: Moderate diverticulosis Sigmoid Colon: Severe diverticulosis with luminal narrowing Rectum: A 1 x 2 cms polypoidal area just proximal to the anal verge - adjacent to hemorrhoids - biopsied with a cold snare. Ano-rectum: Moderate internal hemorrhoids Colon preparation: Good in the right and transvers colon and fair in the left colon due to solid stool balls - related to diverticulosis. Impression and Post Procedure Diagnosis: Colonoscopy Findings: Three polyps removed A 1 x 2 cms polypoidal area just proximal to the anal verge - adjacent to hemorrhoids - biopsied with a cold snare. Moderate diverticulosis seen in the []colon Moderate hemorrhoids on retroflexed exam. Plan: Await pathology results Patient has an appointment on 02/28/23 in the GI Clinic with Shantel Vincent NP. Repeat Colonoscopy interval based on path results - in 3-5 years if polyps are adenomatous and due to a hx of adenomatous colon polyps. If biopsies from the rectum shows adenomatous tissue, pt needs to be scheduled for a Flex sig with colon prep and 2 fleet enemas in 3-4 months BIOPSY Received: 02/17/23 Diagnosis A. Colon, transverse, polyp: Tubular adenoma, likely excised; negative for high- grade dysplasia and carcinoma. B. Colon, ascending, polyps: Tubular adenomas (2 pieces); negative for high- grade dysplasia and carcinoma. C. Colon, rectal polyp: Superficial invasive squamous cell carcinoma, poorly- differentiated, and squamous cell carcinoma in situ, fragmented..... 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 - Malignant neoplasm of anus, unspecified (2) Family history of polyps in the colon: Comment: Brother, scope 2020= 2TA repeat 5 years Code(s): Z83.71 - Family history of colonic polyps (3) Gastroparesis: Comment: Patient could not tolerate Reglan so she is advised to eat smaller more frequent meals and should her condition worse we may need consider referral for consideration of gastric pacemaker at a tertiary center aeb Code(s): K31.84 - Gastroparesis (4) GERD (gastroesophageal reflux disease): Code(s): K21.9 - Gastro-esophageal reflux disease without esophagitis Qualifiers: Esophagitis presence: with esophagitis Plan She is leaving next week to go to [place] and will return 04/07. I educate her on the finding of squamous cell carcinoma of the rectum. I let know that this is extremely rare cancer but can progressed very quickly so it is extremely important that she have an urgent follow-up with Oncology and the imaging studies that we are requesting. The sooner she has treatment the better her oz of survival. I will have her follow-up with me in April just to make absolutely sure that nothing has fallen through the cracks and she is getting the attention that she needs. She continues on psyllium husk fiber for her constipation and famotidine 20 mg twice a day for her GERD with good control. Orders: Orders CT abdomen pelvis w IV con 03/03/23 C21.0 - Malignant neoplasm of anus, unspecified CT chest w IV con 03/03/23 C21.0 - Malignant neoplasm of anus, unspecified Coding Level of Care Code Est Pt Level 3 (93413) Diagnoses Anal squamous cell carcinoma C21.0 Family history of polyps in the colon Z83.71 Gastroparesis K31.84 GERD (gastroesophageal reflux disease) K21.9 Esophagitis presence: with esophagitis
[2023-02-28 08:46] VITALS: BP 166/73; PULSE 73; BMI 35.5
== END 2023-02-28 11:39 | disposition home or self-care (01) ==
PROVIDERS: PCP Nurse Practitioner Primary Care; Referring Provider Nurse Practitioner Primary Care; Visit Provider Nurse Practitioner
DX: C21.0 Malignant neoplasm of anus, unspecified (principal); Z83.71 Family history of colonic polyps; K31.84 Gastroparesis; K21.9 Gastro-esophageal reflux disease without esophagitis
CPT/HCPCS: 99213

== ENCOUNTER → 2023-02-28 08:40 | Outpatient (BNVA) | payer OTHER, SELFPAY | PROVIDERS: PCP Nurse Practitioner Primary Care; Visit Provider Nurse Practitioner | DX: K31.84 Gastroparesis (principal); K21.9 Gastro-esophageal reflux disease without esophagitis; C21.0 Malignant neoplasm of anus, unspecified; Z83.719 Family history of colon polyps, unspecified | CPT/HCPCS: 99212 ==

== ENCOUNTER 2023-03-03 06:08 | Outpatient (REF) | payer OTHER, SELFPAY ==
--- NOTE | ~2023-03-03 | CT_ITS ---
EXAMINATION: CT chest, CT abdomen and pelvis with IV contrast. CLINICAL INDICATIONS: Malignant neoplasm of the anus. COMPARISON: CT abdomen and pelvis 08/24/2022. Ultrasound abdomen 10/24/2022. TECHNIQUE: 5 mm thin axial and reformatted 3 minutes thin sagittal coronal images of chest, abdomen and pelvis were obtained following IV 85 metal Omnipaque 350. DLP 681. FINDINGS: LUNGS: Both lungs are fairly well-expanded and clear of acute pneumonic process. There is a 2 mm nodule left lower lobe posterior segment image 33/4. No additional nodules, mass or consolidation seen. Mediastinum: Thyroid lobes are symmetrical and normal. The central trachea and bronchi are widely patent. Heart size and the great vessels are normal caliber. There is no pericardial effusion. There are small shotty lymph nodes in the pretracheal space space. No coronary artery calcification seen. Pleura: There is no pleural thickening, calcification or effusion. Axilla: There is no abnormal size axillary lymph nodes. Osseous structures: No aggressive lytic or sclerotic process. ABDOMEN AND PELVIS: Liver, ducts and gallbladder. The liver is normal size, contour and density. No focal lesion or intrahepatic ductal dilatation seen. The gallbladder has been surgically removed. Spleen: Unremarkable. Pancreas: Unremarkable. Adrenal glands: There is 7 mm right adrenal nodule axial image 19/3. The left adrenal gland is unremarkable. Kidneys and ureters: Both kidney nephrograms are symmetrical and normal. No radiopaque calculi or hydronephrosis seen. There are bilateral simple renal cysts with no workup needed. There is no pericolic nephric stranding. Lymphovascular structures: Abdominal aorta is mildly atherosclerotic but no aneurysmal dilatation. No retroperitoneal or mesenteric lymph nodes seen. GI tract: There is scattered stool, diverticuli and gas seen throughout the colon without any significant distention. Most significant diverticula in the sigmoid colon without any mural thickening or diverticulitis. There is mild asymmetrical right perirectal soft tissue thickening without focal enhancement. The small bowel loops are normal caliber. Appendix is normal caliber. The stomach is nondistended. Abdominal wall: Unremarkable. Pelvis: The urinary bladder is nondistended. There is 1.5 x 0.7 cm right inguinal prominent lymph node axial image 70/3. Osseous structures: No aggressive lytic or sclerotic process seen. There is moderate left L4-L5 facet joint arthropathy. CT/CT abdomen pelvis w IV con IMPRESSION: 1.5 cm along the right inguinal lymph node, suspicious. Mild asymmetric right perirectal space soft tissue thickening but no focal enhancing mass. Simple bilateral renal cysts. No further workup needed. 2 mm pulmonary nodule left lower lobe, nonsuspicious. The gallbladder has been surgically removed. Colonic diverticulosis without diverticulitis.
[2023-03-03 06:23] LABS: MANUAL DIFF FLAG NO
[2023-03-03 07:11] LABS: Basophils Percent Auto 0.4 % (0-2); Eosinophils Absolute Auto 0.2 X10*3/uL (0.0-0.4); Eosinophils Percent Auto 2.9 % (0-4); Hematocrit 38.5 % (37.0-47.0); Hemoglobin 12.7 g/dl (12.0-16.0); Imm Gran Abs Auto 0.04 X10*3/uL (0.00-0.03); Imm Gran Pct Auto 0.5 % (0.0-0.4); Lymphocytes Percent Auto 24.3 % (20-40); Mean Corpuscular Hemoglobin 31.8 pg (27.0-33.0); Mean Corpuscular Volume 96.3 fL (80.0-98.0); Mean Platelet Volume 9.1 fL (9.4-12.3); Monocytes Absolute Auto 0.5 X10*3/uL (0.1-1.2); Monocytes Percent Auto 6.1 % (2-11); Neutrophils Absolute Auto 5.5 x10*3/uL (2.0-8.3); Neutrophils Percent Auto 65.8 % (45-73); Platelet Count 251 X10*3/uL (160-400); Red Cell Distribution Width 12.3 % (11.0-16.0); White Blood Count 8.4 X10*3/uL (4.8-10.8)
[2023-03-03 07:28] LABS: Blood Urea Nitrogen 22 mg/dL (9-16); Estimated Glomerular Filt Rate 59
[2023-03-03] MEDS: Barium Sulfate Oral (Berry) 450 ML ORAL.SUSP 900 ML PO (09:01)
[2023-03-03] MEDS: iohexoL 350 MG/ML 100 ML INFUS..BTL IV (09:02)
== END 2023-03-03 06:09 | disposition home or self-care (01) ==
LOC: HO.CT 06:08
PROVIDERS: Absent Provider Internal Medicine Gastroenterology; PCP Nurse Practitioner Primary Care; Visit Provider Nurse Practitioner
DX: C21.0 Malignant neoplasm of anus, unspecified (principal)
CPT/HCPCS: 36415; 71260; 74177; 82565; 84520; 85025; Q9967

== ENCOUNTER 2023-04-18 08:48 | Outpatient (AMB) | payer OTHER, SELFPAY ==
[2023-04-18 08:51] VITALS: BP 152/81; PULSE 69; BMI 34.4
--- NOTE | 2023-04-18 08:51 | MHC.OFFVIS ---
Intake Vital Signs 04/18/23 08:51 Height 5 ft 3 in Weight 194 lb 0.108 oz BMI 34.4 BP 152/81 H Blood Pressure Location Lt brachial Position Sitting Pulse 69 Intake Visit Reasons: 3 month follow up Intake Note: Patient presents to in office today in 3 months follow up of CT scan. CC: Patient reports intermittent lower abdominal pain. She states she had to d/c blood thinners because she was bleeding through her nose and had an episode of spitting out blood. 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 Accompanied by: Self / Same As Patient Allergies ibuprofen [IBUPROFEN] Allergy (Severe, Verified 04/18/23 08:57) SICK TO MY STOMACH ciprofloxacin [From CIPRO] Allergy (Intermediate, Verified 04/18/23 08:57) SICK doxycycline Allergy (Intermediate, Verified 04/18/23 08:57) Dizziness levofloxacin [From LEVAQUIN] Allergy (Intermediate, Verified 04/18/23 08:57) SICK , nausea, dizziness x days flu vaccine Allergy (Intermediate, Uncoded 01/25/23 09:52) Swelling HPI 3 month follow up HPI Details Assessment & Plan (1) GERD (gastroesophageal reflux disease): Code(s): K21.9 - Gastro-esophageal reflux disease without esophagitis Qualifiers: Esophagitis presence: with esophagitis Plan: She is doing well. She cut out many foods including spaghetti sauce, hot/spicy foods, full fat milk, acidy things, etc. With this she only has occasional HB which she manages with TUMS. She manges her gastroparesis with meal management, if she skips breakfast she will have troubles with bloating and post prandial BM's. With this, I am not treating her actively, but she is due for a repeat colonoscopy r/t her large TA's [id number]. She is agreeable to ordering this. There are no prior problems with anesthesia or sedation. Her cardiac problems are well controlled but she does have AFib and is on Xarelto and she feels her asthma is well controlled. There are no known infectious disease problems. Again she had a large TA in 2020. I will see her after the colonoscopy. She needs to update her labs for anesthesia purposes so I have ordered a CBC and Chem profile and she is aware she needs to go to this now or at least a few weeks before her procedure so we can have the results. (2) Gastroparesis: Comment: Patient could not tolerate Reglan so she is advised to eat smaller more frequent meals and should her condition worse we may need consider referral for consideration of gastric pacemaker at a tertiary center aeb Code(s): K31.84 - Gastroparesis (3) Constipation: Code(s): K59.00 - Constipation, unspecified (4) Family history of polyps in the colon: Comment: Brother, scope 2020= 2TA repeat 5 years Code(s): Z83.71 - Family history of colonic polyps (5) Colon cancer screening: Comment: Last scope in 2010 and was negative but patient now has a new family history of colon polyps and is overdue Code(s): Z12.11 - Encounter for screening for malignant neoplasm of colon (6) Pre-op examination: Code(s): Z01.818 - Encounter for other preprocedural examination Orders: Orders Comprehensive Met. Panel 07/15/22 Z12.11 - Encounter for screening for malignant neoplas m of colon Complete Blood Cou nt Auto Diff 07/15/22 Z.11 - Encounter for screening for malignant neoplas m of colon LABS: Laboratory Tests 11/02/22 11/02/22 11/02/22 09:37 09:37 09:37 WBC Hgb Hct Plt Count Estimated GFR Ferritin Total Bilirubin 0.7 AST 30 ALT 43 H Alkaline Phosphata se 65 11/21/22 03/03/23 03/03/23 08:27 06:21 06:21 WBC 8.4 Hgb Hct 38.5 Plt Count 251 Estimated GFR 59 Ferritin 63 Total Bilirubin AST ALT Alkaline Phosphata se 03/03/23 06:21 WBC Hgb 12.7 Hct Plt Count Estimated GFR Ferritin Total Bilirubin AST ALT Alkaline Phosphata se COLONOSCOPY Findings: Terminal Ileum: Not evaluated Cecum: Normal Ascending Colon: A 2-3 mm sessile polyp in the distal ascending colon - removed with a cold biopsy. An 8-9 mm sessile polyp - removed with a cold snare Transverse Colon: A 7-8 mm sessile polyp - removed with a cold snare Descending Colon: Moderate diverticulosis Sigmoid Colon: Severe diverticulosis with luminal narrowing Rectum: A 1 x 2 cms polypoidal area just proximal to the anal verge - adjacent to hemorrhoids - biopsied with a cold snare. Ano-rectum: Moderate internal hemorrhoids Colon preparation: Good in the right and transvers colon and fair in the left colon due to solid stool balls - related to diverticulosis. Impression and Post Procedure Diagnosis: Colonoscopy Findings: Three polyps removed A 1 x 2 cms polypoidal area just proximal to the anal verge - adjacent to hemorrhoids - biopsied with a cold snare. Moderate diverticulosis seen in the []colon Moderate hemorrhoids on retroflexed exam. Plan: Await pathology results Patient has an appointment on 02/28/23 in the GI Clinic with Shantel Vincent NP. Repeat Colonoscopy interval based on path results - in 3-5 years if polyps are adenomatous and due to a hx of adenomatous colon polyps. If biopsies from the rectum shows adenomatous tissue, pt needs to be scheduled for a Flex sig with colon prep and 2 fleet enemas in 3-4 months BIOPSY Received: 02/17/23 Diagnosis A. Colon, transverse, polyp: Tubular adenoma, likely excised; negative for high-grade dysplasia and carcinoma. B. Colon, ascending, polyps: Tubular adenomas (2 pieces); negative for high-grade dysplasia and carcinoma. C. Colon, rectal polyp: Superficial invasive squamous cell carcinoma, poorly-differentiated, and squamous cell carcinoma in situ, fragmented....... * CORRESPONDENCE CHART note from Dr. Mcmahon. On 02/27/23 @ 18:01 Clary Godinez Wrote To Shantel Vincent (2) FYI Pt has an appt with you on 02/28/23 On 02/27/23 @ 17:46 Clary Godinez Wrote To Clary Godinez Biopsies showed: A. Colon, transverse, polyp: Tubular adenoma, likely excised; negative for high-grade dysplasia and carcinoma. B. Colon, ascending, polyps: Tubular adenomas (2 pieces); negative for high-grade dysplasia and carcinoma. C. Colon, rectal polyp: Superficial invasive squamous cell carcinoma, poorly-differentiated, and squamous cell carcinoma in situ, fragmented Pt called and biopsy results reviewed with the patient and her son. Patient was advised to schedule chest abdomen and pelvic CT scan. Urgent referral sent to Oncology to discuss treatment with chemo/XRT TODAY'S VISIT She has her appt with Dr. Ty this Monday. She had her scans and there is a suspicious mass in her right inguinal area. The procedure was well tolerated. The results were explained and the patient is agreeable to the follow-up interval as stated. The bowel pattern has returned to normal. Education was provided to tell any 1st degree relatives about their findings to be sure that they are screened by age 45. Educated that they will be put on a recall list when it is time for their repeat scope but should they move out of state or away from the hospital they will need to remember along with their primary to repeat the procedure in a timely fashion to avoid any adverse complications. She has a good outlook, and she says after 17 years I have a boyfriend. She some mild worries about having a colostomy bag but I told her that usually this type of cancers treated 1st with radiation and chemotherapy prior to considering any surgery. Also, if she has surgery because this is isolated to the last part of the colon/rectum it is unlikely she would have any severe lost for a long period of time. This seemed to help her and made her feel better. She is having a lot of nosebleeds and had to stop her xarelto (she advised the clinic) nd her jafib has been with RVR subjectively she is having palpitations and a burning in my heart. We discuss that there is a Watchman device that may be helpful She continues on famotidine and fiber with good control. ROV 8 weeks. FORMERLY [facility], [facility] Medical History Restrictive lung disease Dyspnea on exertion Smoking greater than 30 pack years CKD (chronic kidney disease) stage 3, GFR 30-59 ml/min Babesiasis Paroxysmal atrial fibrillation CAD (coronary artery disease) Asthma Diabetes Bronchitis Obesity (BMI 30-39.9) Vitamin D deficiency Osteopenia Dyslipidemia Hypertension Diabetic 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 GERD (gastroesophageal reflux disease) Surgical History Hx of cataract surgery Hx of foot surgery Hx of colonoscopy History of esophagogastroduodenoscopy (EGD) Family History Father Heart failure Diabetes mellitus Mother Cholangiocarcinoma Diabetes mellitus Family history of hypertension Family history of heart attack Brother Lung cancer Family/Other Breast cancer Sister Social History Household Members: Family Housing: House Do you presently have visiting nurse or other home services: No Alcohol intake: current Alcohol intake frequency: a few times a month Alcohol type: beer Patient Tobacco Use Status: Former Tobacco user Tobacco use type: Cigarette Cigarettes Per Day: 12 Years Smoked: 45 e-Cigarette/Vaping Use: Never Used Advance Directives Date on File: 10/19/22 service: No Current occupational status: unemployed Review of Systems Const Denies fatigue, Denies fever(s), Denies night sweats, Denies poor appetite and Denies weight loss ENT Reports Normal hearing present, Denies dental pain, Denies dysphagia, Denies hearing loss, Denies mouth pain, Denies odynophagia, Denies throat swelling, Denies tongue swelling and Reports other (Dentition adequate) Card Reports no additional complaints Resp Reports no additional complaints GI Denies abdominal pain, Denies melena, Denies bloating, Denies hematochezia, Reports constipation, Denies GI cramping, Denies dysphagia, Denies excessive flatus, Denies early satiety, Reports heartburn, Denies diarrhea, Denies nausea, Denies odynophagia, Denies vomiting and Denies hematemesis Skin/Breast Denies pruritus, Denies lesions, Denies rash and Denies jaundice Neuro Reports Normal hearing present and Denies Abnormal speech present Endo Denies fatigue Aller/Immun Denies throat swelling and Denies tongue swelling Physical Exam Vital Signs: Last Vital Signs Pulse 69 04/18/23 08:51 BP 152/81 H 04/18/23 08:51 BMI result Body Mass Index 34.4 Const General: cooperative, no acute distress, well developed and well groomed Nutritional Appearance: well nourished and obese Orientation/consciousness: oriented to person, oriented to place and oriented to time Limitations: No language barrier HEENT Head: Yes normocephalic and Yes atraumatic Eyes General: appearance normal, both eyes and all related structures Pupils: Equal, round and reactive pupils present Neck Neck: Yes normal visual inspection and Yes no lymphadenopathy Thyroid: Thyroid normal Resp Effort & Inspection: normal respiratory effort and able to speak in complete sentences Auscultation: clear to auscultation bilaterally Cardio Rate: regular rate Rhythm: regular rhythm Heart sounds: Normal, physiologic split S2 sound present Peripheral pulses: radial pulses present and posterior tibial pulses present GI Inspection: No distended, No Abdominal panniculus present and Yes obesity Palpation (GI): Soft to palpation, nontender, no guarding, not rigid and No hepatosplenomegaly present Percussion: Yes normal to percussion Auscultation: normal bowel sounds Rectal Exam - Female: deferred Skin General skin exam: no rashes or lesions noted, turgor normal, skin not dry, no jaundice, No spider nevi and no striae Rashes: no rashes Nails: normal Neuro General: oriented to person, oriented to place and oriented to time Cranial nerves: Yes Equal, round and reactive pupils present and Yes Normal hearing present Speech: No Abnormal speech present Extrem General: Yes normal to inspection, No clubbing, No cyanosis and No edema Psych Appearance: grossly normal and well kempt Mental Status: mental status grossly normal Speech and movement: Normal speech and movement present Affect: normal affect Attitude: cooperative Thought process: Normal thought process present and not confabulating Thought content: Normal thought content present Insight: Limited insight present (Psych) Judgement: Limited judgement present (Psych) Results Reviewed Results Reviewed: Laboratory Tests 11/02/22 11/02/22 11/02/22 09:37 09:37 09:37 WBC Hgb Hct Plt Count Estimated GFR Ferritin Total Bilirubin 0.7 AST 30 ALT 43 H Alkaline Phosphatase 65 11/21/22 03/03/23 03/03/23 08:27 06:21 06:21 WBC 8.4 Hgb Hct 38.5 Plt Count 251 Estimated GFR 59 Ferritin 63 Total Bilirubin AST ALT Alkaline Phosphatase 03/03/23 06:21 WBC Hgb 12.7 Hct Plt Count Estimated GFR Ferritin Total Bilirubin AST ALT Alkaline Phosphatase COLONOSCOPY 02/17/23 Findings: Terminal Ileum: Not evaluated Cecum: Normal Ascending Colon: A 2-3 mm sessile polyp in the distal ascending colon - removed with a cold biopsy. An 8-9 mm sessile polyp - removed with a cold snare Transverse Colon: A 7-8 mm sessile polyp - removed with a cold snare Descending Colon: Moderate diverticulosis Sigmoid Colon: Severe diverticulosis with luminal narrowing Rectum: A 1 x 2 cms polypoidal area just proximal to the anal verge - adjacent to hemorrhoids - biopsied with a cold snare. Ano-rectum: Moderate internal hemorrhoids Colon preparation: Good in the right and transvers colon and fair in the left colon due to solid stool balls - related to diverticulosis. Impression and Post Procedure Diagnosis: Colonoscopy Findings: Three polyps removed A 1 x 2 cms polypoidal area just proximal to the anal verge - adjacent to hemorrhoids - biopsied with a cold snare. Moderate diverticulosis seen in the []colon Moderate hemorrhoids on retroflexed exam. Plan: Await pathology results Patient has an appointment on 02/28/23 in the GI Clinic with Shantel Vincent NP. Repeat Colonoscopy interval based on path results - in 3-5 years if polyps are adenomatous and due to a hx of adenomatous colon polyps. If biopsies from the rectum shows adenomatous tissue, pt needs to be scheduled for a Flex sig with colon prep and 2 fleet enemas in 3-4 months BIOPSY Received: 02/17/23 Diagnosis A. Colon, transverse, polyp: Tubular adenoma, likely excised; negative for high-grade dysplasia and carcinoma. B. Colon, ascending, polyps: Tubular adenomas (2 pieces); negative for high-grade dysplasia and carcinoma. C. Colon, rectal polyp: Superficial invasive squamous cell carcinoma, poorly-differentiated, and squamous cell carcinoma in situ, fragmented....... * CORRESPONDENCE CHART note from Dr. Mcmahon. On 02/27/23 @ 18:01 Clary Godinez Wrote To Shantel Vincent (2) RODRI Pt has an appt with you on 02/28/23 On 02/27/23 @ 17:46 Clary Godinez Wrote To Clary Godinez Biopsies showed: A. Colon, transverse, polyp: Tubular adenoma, likely excised; negative for high-grade dysplasia and carcinoma. B. Colon, ascending, polyps: Tubular adenomas (2 pieces); negative for high-grade dysplasia and carcinoma. C. Colon, rectal polyp: Superficial invasive squamous cell carcinoma, poorly-differentiated, and squamous cell carcinoma in situ, fragmented Pt called and biopsy results reviewed with the patient and her son. Patient was advised to schedule chest abdomen and pelvic CT scan. 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 - Malignant neoplasm of anus, unspecified (2) GERD (gastroesophageal reflux disease): Code(s): K21.9 - Gastro-esophageal reflux disease without esophagitis Qualifiers: Esophagitis presence: with esophagitis (3) Gastroparesis: Comment: Patient could not tolerate Reglan so she is advised to eat smaller more frequent meals and should her condition worse we may need consider referral for consideration of gastric pacemaker at a tertiary center aeb Code(s): K31.84 - Gastroparesis (4) Family history of polyps in the colon: Comment: Brother, scope 2020= 2TA repeat 5 years Code(s): Z83.71 - Family history of colonic polyps Plan She has her appt with Dr. Ty this Monday. She had her scans and there is a suspicious mass in her right inguinal area. The procedure was well tolerated. The results were explained and the patient is agreeable to the follow-up interval as stated. The bowel pattern has returned to normal. Education was provided to tell any 1st degree relatives about their findings to be sure that they are screened by age 45. Educated that they will be put on a recall list when it is time for their repeat scope but should they move out of state or away from the hospital they will need to remember along with their primary to repeat the procedure in a timely fashion to avoid any adverse complications. She has a good outlook, and she says after 17 years I have a boyfriend. She some mild worries about having a colostomy bag but I told her that usually this type of cancers treated 1st with radiation and chemotherapy prior to considering any surgery. Also, if she has surgery because this is isolated to the last part of the colon/rectum it is unlikely she would have any severe lost for a long period of time. This seemed to help her and made her feel better. She is having a lot of nosebleeds and had to stop her xarelto (she advised the clinic) nd her jafib has been with RVR subjectively she is having palpitations and a burning in my heart. We discuss that there is a Watchman device that may be helpful She continues on famotidine and fiber with good control. ROV 8 weeks. Coding Level of Care Code Est Pt Level 4 (29271) Diagnoses Anal squamous cell carcinoma C21.0 GERD (gastroesophageal reflux disease) K21.9 Esophagitis presence: with esophagitis Gastroparesis K31.84 Family history of polyps in the colon Z83.71 Time Spent (min) 31
== END 2023-04-18 09:30 | disposition home or self-care (01) ==
PROVIDERS: PCP Nurse Practitioner Primary Care; Visit Provider Nurse Practitioner
DX: C21.0 Malignant neoplasm of anus, unspecified (principal); K21.9 Gastro-esophageal reflux disease without esophagitis; K31.84 Gastroparesis; Z83.71 Family history of colonic polyps
CPT/HCPCS: 99214

== ENCOUNTER → 2023-04-18 08:48 | Outpatient (BNVA) | payer OTHER, SELFPAY | PROVIDERS: PCP Nurse Practitioner Primary Care; Visit Provider Nurse Practitioner | DX: C21.0 Malignant neoplasm of anus, unspecified (principal); K21.9 Gastro-esophageal reflux disease without esophagitis; K31.84 Gastroparesis; Z83.719 Family history of colon polyps, unspecified | CPT/HCPCS: 99212 ==

== ENCOUNTER 2023-04-26 08:27 | Outpatient (AMB) | payer OTHER, SELFPAY ==
[2023-04-26 08:42] VITALS: BP 122/76; PULSE 64; BMI 34.8
--- NOTE | 2023-04-26 08:42 | A.OFFVIS_ITS ---
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 Allergies ibuprofen [IBUPROFEN] Allergy (Severe, Verified 04/21/23 14:43) SICK TO MY STOMACH ciprofloxacin [From CIPRO] Allergy (Intermediate, Verified 04/21/23 14:43) SICK doxycycline Allergy (Intermediate, Verified 04/21/23 14:43) Dizziness levofloxacin [From LEVAQUIN] Allergy (Intermediate, Verified 04/21/23 14:43) SICK , nausea, dizziness x days flu vaccine Allergy (Intermediate, Uncoded 04/21/23 14:43) Swelling Medication List - Last Reconciled 04/26/23 by Yovanny Reid MD acetaminophen 1,000 mg PO DAILY PRN albuterol sulfate 2.5 mg (3 mL) inhalation QID PRN apixaban (Eliquis) 5 mg PO BID blood sugar diagnostic (FreeStyle Lite Strips) As directed cholecalciferol (vitamin D3) 25 mcg PO DAILY diltiazem HCl (Cardizem CD) 180 mg PO DAILY 90 days ezetimibe 10 mg PO DAILY famotidine 20 mg PO BID glipizide 10 mg PO BID insulin degludec (Tresiba FlexTouch U-100 insulin) 12 units subcut DAILY lancets (FreeStyle Lancets) As directed 1x/daily lisinopril 20 mg PO DAILY melatonin 1 mg PO BEDTIME metformin ER 1,000 mg (2 x 500 mg) PO BID rosuvastatin 40 mg PO DAILY sertraline 100 mg PO DAILY PRN HPI HPI Comments History of Present Illness Details Zee comes for follow-up after 6 months. She has currently not taking Eliquis as she had epistaxis about couple weeks ago while she was in [place]. She said she had blood clots coming out. She stopped Eliquis for about 2 weeks has improved but over the last 2 days she is currently having again increased mucus and with blood clots coming out. She denies any sinus infection. Denies any fever or headaches. She has never seen an ENT doctor before. She has had this epistaxis intermittently for 2 years. She denies any exertional chest pain. Denies any prolonged palpitation irregular heartbeat. No lightheadedness, syncope. 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, undergoing evaluation [facility] Medical History Restrictive lung disease Dyspnea on exertion Smoking greater than 30 pack years CKD (chronic kidney disease) stage 3, GFR 30-59 ml/min Babesiasis Paroxysmal atrial fibrillation CAD (coronary artery disease) Asthma Diabetes Bronchitis Obesity (BMI 30-39.9) Vitamin D deficiency Osteopenia Dyslipidemia Hypertension Diabetic 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 GERD (gastroesophageal reflux disease) Surgical History Hx of cataract surgery Hx of foot surgery Hx of colonoscopy History of esophagogastroduodenoscopy (EGD) Family History Father Heart failure Diabetes mellitus Mother Cholangiocarcinoma Diabetes mellitus Family history of hypertension Family history of heart attack Brother Lung cancer Family/Other Breast cancer Sister Social History Household Members: Family Housing: House Do you presently have visiting nurse or other home services: No Alcohol intake: current Alcohol intake frequency: a few times a month Alcohol type: beer Patient Tobacco Use Status: Former Tobacco user Tobacco use type: Cigarette Years Smoked: 45 e-Cigarette/Vaping Use: Never Used Advance Directives Date on File: 10/19/22 service: No Current occupational status: unemployed Review of Systems Const Denies chills, Denies fatigue, Denies fever(s), Denies frequent falls, Denies weakness, Denies weight gain and Denies weight loss ENT Denies dizziness Card Denies chest pain, Denies leg edema, Denies lightheadedness, Denies palpitations, Denies dyspnea, Denies dyspnea on exertion, Denies orthopnea and Denies other (loss of consciousness) Resp Denies cough, Denies dyspnea and Denies dyspnea on exertion GI Denies hematochezia and Denies change in stool character Musc Denies abnormal gait, Denies muscle weakness, Denies numbness, Denies radiating pain into limb and Denies tingling Neuro Denies abnormal gait, Denies dizziness, Denies frequent falls, Denies numbness, Denies tingling and Denies weakness Endo Denies fatigue and Denies palpitations Physical Exam Vital Signs: Last Vital Signs Pulse 64 04/26/23 08:42 BP 122/76 04/26/23 08:42 BMI result Body Mass Index 34.8 Const General: cooperative, no acute distress, alert and awake Orientation/consciousness: patient oriented x3 Neck Neck: Yes normal visual inspection and Yes no JVD Resp Effort & Inspection: normal respiratory effort, able to speak in complete sentences and not labored Auscultation: clear to auscultation bilaterally, no crackles, no rales, no rhonchi and no wheezes Cardio Palpation: normal PMI Rate: regular rate Rhythm: regular rhythm Heart sounds: S1 normal heart sound present and S2 normal heart sound present GI Inspection: Yes normal to inspection Neuro General: patient oriented x3 Extrem General: Yes normal to inspection and No edema Assessment & Plan Assessment & Plan (1) Paroxysmal atrial fibrillation: Code(s): I48.0 - Paroxysmal atrial fibrillation Plan: Paroxysmal atrial fibrillation in this middle-aged woman with no clinical recurrence. Continue current medical therapy with diltiazem. No indication for antiarrhythmic therapy at this point time. She is currently holding her Eliquis therapy given her recurrent epistaxis. I have discussed with Dr. Elam her primary care physician who is going to work on getting her ENT evaluation. If she has thinks that can be treated locally and has no recurrent bleeding should resume oral anticoagulation therapy. However there is no obvious cause or treatable cause can consider Watchman device for her. This was discussed with her. She understands. Continue aggressive risk factor modification with aggressive blood pressure control. (2) CAD (coronary artery disease): Code(s): I25.10 - Atherosclerotic heart disease of [place] coronary artery without angina pectoris Plan: CAD nonobstructive with no cardiovascular symptoms of exertional chest pain. Continue aggressive medical therapy. Is on oral anticoagulation the long run and should avoid antiplatelet therapy especially given that she has recurrent epistaxis. Continue high-intensity statin therapy along with ezetimibe. Target goal LDL closer to 60 mg/dL. Blood pressure is currently well optimized advised to monitor blood pressure at home maintain a log. Goal hemoglobin A1c less than 7% being pursue through your office. Will follow up in the clinic in 6 months time, sooner p.r.n.. Thank you for allowing me to partake in her care Coding Level of Care Code Est Pt Level 4 (51197) Diagnoses Paroxysmal atrial fibrillation I48.0 CAD (coronary artery disease) I25.10
== END 2023-04-26 09:27 | disposition home or self-care (01) ==
PROVIDERS: PCP Nurse Practitioner Primary Care; Visit Provider Internal Medicine Cardiovascular Disease
DX: I48.0 Paroxysmal atrial fibrillation (principal); I25.10 Atherosclerotic heart disease of native coronary artery without angina pectoris
CPT/HCPCS: 99214

== ENCOUNTER → 2023-04-26 08:27 | Outpatient (BNVA) | payer OTHER, SELFPAY | PROVIDERS: PCP Nurse Practitioner Primary Care; Visit Provider Internal Medicine Cardiovascular Disease | DX: I48.0 Paroxysmal atrial fibrillation (principal); I25.10 Atherosclerotic heart disease of native coronary artery without angina pectoris | CPT/HCPCS: 99212 ==

== ENCOUNTER 2023-05-03 10:14 | Outpatient (AMB) | payer OTHER, SELFPAY ==
--- NOTE | 2023-05-03 10:19 | MHC.OFFVIS ---
Intake Vital Signs 05/03/23 10:24 Height 5 ft 3 in Weight 194 lb BMI 34.4 Intake Visit Reasons: SCC in anal canal Intake Note: This patient was referred by for an assessment for squamous cell carcinoma in anal canal. Pt c/o; reports no rectal bleeding, pain or pressure. 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 Accompanied by: Other Relationship Allergies ibuprofen [IBUPROFEN] Allergy (Severe, Verified 05/05/23 10:10) SICK TO MY STOMACH ciprofloxacin [From CIPRO] Allergy (Intermediate, Verified 05/05/23 10:10) SICK doxycycline Allergy (Intermediate, Verified 05/05/23 10:10) Dizziness levofloxacin [From LEVAQUIN] Allergy (Intermediate, Verified 05/05/23 10:10) SICK , nausea, dizziness x days flu vaccine Allergy (Intermediate, Uncoded 05/05/23 10:10) Swelling Medication List - Last Reconciled 05/03/23 by Carlos Arauz MD acetaminophen 1,000 mg PO DAILY PRN albuterol sulfate 2.5 mg (3 mL) inhalation QID PRN apixaban (Eliquis) 5 mg PO BID blood sugar diagnostic (FreeStyle Lite Strips) As directed cholecalciferol (vitamin D3) 25 mcg PO DAILY diltiazem HCl (Cardizem CD) 180 mg PO DAILY 90 days ezetimibe 10 mg PO DAILY famotidine 20 mg PO BID glipizide 10 mg PO BID insulin degludec (Tresiba FlexTouch U-100 insulin) 12 units subcut DAILY lancets (FreeStyle Lancets) As directed 1x/daily lisinopril 20 mg PO DAILY melatonin 1 mg PO BEDTIME metformin ER 1,000 mg (2 x 500 mg) PO BID rosuvastatin 40 mg PO DAILY sertraline 100 mg PO DAILY PRN HPI SCC in anal canal HPI Details 62-year-old female referred for squamous cell carcinoma on the anal canal. She apparently had undergone a colonoscopy in February,. A small polyp was removed near the anal verge and this was a squamous cell carcinoma She was therefore referred to me She has already had seen Dr. Ty of Oncology. The patient is being planned for chemotherapy and radiation She complains of pain in the anus. She denies any bleeding. She denies any changes in bowel habits. [facility] Medical History Restrictive lung disease Dyspnea on exertion Smoking greater than 30 pack years CKD (chronic kidney disease) stage 3, GFR 30-59 ml/min Babesiasis Paroxysmal atrial fibrillation CAD (coronary artery disease) Asthma Diabetes Bronchitis Obesity (BMI 30-39.9) Vitamin D deficiency Osteopenia Dyslipidemia Hypertension Diabetic 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 GERD (gastroesophageal reflux disease) Surgical History Hx of cataract surgery Hx of foot surgery Hx of colonoscopy History of esophagogastroduodenoscopy (EGD) Family History Father Heart failure Diabetes mellitus Mother Cholangiocarcinoma Diabetes mellitus Family history of hypertension Family history of heart attack Brother Lung cancer Family/Other Breast cancer Sister Social History Household Members: Family Housing: House Do you presently have visiting nurse or other home services: No Alcohol intake: current Alcohol intake frequency: a few times a month Alcohol type: beer Patient Tobacco Use Status: Former Tobacco user Tobacco use type: Cigarette Years Smoked: 45 e-Cigarette/Vaping Use: Never Used Use of substances other than those prescribed or required for medical reasons: No Do you feel safe in your current relationship?: Yes Advance Directives Date on File: 10/19/22 Do you have thoughts of harming others: None Patient : No service: No Current occupational status: unemployed Review of Systems Const Denies chills and Denies fever(s) Card Denies chest pain, Denies dyspnea and Denies dyspnea on exertion Resp Denies cough, Denies dyspnea and Denies dyspnea on exertion GI Denies hematochezia and Denies change in bowel habits Denies hematuria Musc Denies back pain and Denies limited range of motion Neuro Denies focal weakness and Denies convulsions Psych Denies depression and Denies mood swings Physical Exam Vital Signs: BMI result Body Mass Index 34.4 Const General: comfortable and no acute distress Orientation/consciousness: patient oriented x3 Neck Neck: Yes no lymphadenopathy Resp Auscultation: clear to auscultation bilaterally Cardio Rhythm: regular rhythm GI Other: Rectal exam shows external hemorrhoids, anoscopy done Palpation (GI): Soft to palpation, nontender and no guarding Neuro General: patient oriented x3 Office Procedures Anoscopy She was in aditya-knife position. The anoscope was gently inserted. A full examination of the anal canal was done. There was note of what appeared to be an abnormal looking mucosa on the anal canal just proximal to the anal verge on the right side. There was a little bit of friability although no large lesion is seen. There were no other lesions. There was no fissure or any other induration. There was no bleeding. [id number] Assessment & Plan Assessment & Plan (1) Squamous cell carcinoma of anal canal: Code(s): C21.1 - Malignant neoplasm of anal canal Plan: I have done her anoscopy in the office. There seems to be some abnormal mucosa on the right in a canal just proximal to the anal verge. There was no obvious elevated lesion or polyp at this time In view of her pathology, treatment would be chemotherapy and radiation. I do not feel any inguinal lymph nodes although there is mention of a 1.5 cm inguinal node on the right side I told her that I see her again down the line to see response to treatment as well as for surveillance. She is to continue to follow-up with Dr. Ty for treatment. Coding Level of Care Code New Pt Level 3 (66825) Diagnoses Squamous cell carcinoma of anal canal C21.1 CPT Codes Details - CPT: 89358-[id number] ([id number])
[2023-05-03 10:24] VITALS: BMI 34.4
== END 2023-05-03 10:41 | disposition home or self-care (01) ==
PROVIDERS: PCP Nurse Practitioner Primary Care; Referring Provider Internal Medicine Medical Oncology; Visit Provider Surgery
DX: C21.1 Malignant neoplasm of anal canal (principal)
CPT/HCPCS: 46600; 99203

== ENCOUNTER → 2023-05-03 10:14 | Outpatient (BNVA) | payer OTHER, SELFPAY | PROVIDERS: PCP Nurse Practitioner Primary Care; Referring Provider Internal Medicine Medical Oncology; Visit Provider Surgery | DX: C21.1 Malignant neoplasm of anal canal (principal) | CPT/HCPCS: 46600; 99202 ==

== ENCOUNTER → 2023-05-05 10:20 | Outpatient (BNV) | payer OTHER, SELFPAY | PROVIDERS: PCP Nurse Practitioner Primary Care; Visit Provider Internal Medicine Medical Oncology | DX: C21.1 Malignant neoplasm of anal canal (principal) | CPT/HCPCS: 99204; 99214 ==

== ENCOUNTER 2023-05-24 06:15 | Emergency (ER) | payer OTHER, SELFPAY ==
--- NOTE | ~2023-05-24 | XR_ITS ---
EXAMINATION: XR CHEST CLINICAL INFORMATION: Cough with chest wall pain COMPARISON: CT chest from 03/03/2023, chest radiograph from 04/20/2022 TECHNIQUE: Frontal view of the chest was obtained. FINDINGS: No focal consolidation. No pneumothorax. Trachea is midline. Cardiac mediastinal silhouette is not enlarged. No large pleural effusion. Osseous structures are intact. Soft tissues are unremarkable. XR/XR chest 1V IMPRESSION: No acute cardiopulmonary process.
[2023-05-24 06:21] VITALS: BP 178/71; PULSE 77; RESP 18; TEMP 36.7; O2SAT 98; BMI 34.8
[2023-05-24 10:27] LABS: Influenza A PCR NEGATIVE (Negative); Influenza B PCR NEGATIVE (Negative); Resp Syncy Virus RNA Qual PCR NEGATIVE (Negative); SARS COV2 PCR INHOUSE NEGATIVE (Negative)
--- NOTE | 2023-05-24 11:54 | ECG_ITS ---
Test Reason : chest pain with cough Blood Pressure : / mmHG Vent. Rate : 067 BPM Atrial Rate : 067 BPM P-R Int : 184 ms QRS Dur : 072 ms QT Int : 366 ms P-R-T Axes : 044 000 028 degrees QTc Int : 386 ms Normal sinus rhythm Normal ECG When compared with ECG of 24-OCT-2022 08:20, No significant change was found Referred By: Natalie Torres Electronically Signed By:JANNETH BAIG MD
--- NOTE | 2023-05-24 12:26 | ED_ITS ---
HPI - General Adult General Chief complaint: Upper Respiratory Symptoms Stated complaint: cp from cough Time Seen by Provider: 05/24/23 11:54 Source: patient Mode of arrival: ambulatory Limitations: no limitations History of Present Illness HPI narrative: Patient is a 62-year old female with history of asthma, HTN presenting to the emergency department with complaint of nonproductive cough as well as chest pain associated with coughing episodes for the past 3 days. States she has used her prescribed inhalers and nebulizer treatment at home with little relief. States that when she is the nebulizer, this caused a burning sensation to her throat. She also complains of left ear pain and decreased hearing. She reports sweats and chills but denies fevers. States she did not take her blood pressure medication this morning as she checked into the emergency department at 6:00 a.m.. complaint: Cough, left ear pain Onset (ago): day(s) Radiation: non-radiation Severity: moderate Quality: aching (ear) Associated symptoms: cough and fever/chills Treatments prior to arrival: other Related Data Home Medications Medication Instructions Recorded Confirmed sertraline 100 mg tablet 100 mg PO DAILY PRN Anxiety 02/26/20 05/05/23 blood sugar diagnostic (FreeStyle #10 ea 06/23/21 05/05/23 Lite Strips) acetaminophen 500 mg tablet 1,000 mg PO DAILY PRN Pain 10/24/22 05/05/23 glipizide 10 mg tablet 10 mg PO BID 10/24/22 05/05/23 insulin degludec 100 unit/mL (3 12 unit subcut DAILY 10/24/22 05/05/23 mL) subcutaneous pen (Tresiba FlexTouch U-100 insulin) melatonin 1 mg tablet 1 mg PO BEDTIME 11/21/22 05/05/23 famotidine 20 mg tablet 20 mg PO BID 02/28/23 05/05/23 Previous Rx's Medication Instructions Recorded cholecalciferol (vitamin D3) 25 25 mcg PO DAILY #30 caps 04/04/21 mcg (1,000 unit) capsule ezetimibe 10 mg tablet 10 mg PO DAILY #30 tabs 06/23/21 lancets 28 gauge (FreeStyle #100 ea 06/23/21 Lancets) metformin 500 mg tablet,extended 1,000 mg (2 x 500 mg) PO BID #360 12/14/21 release 24 hr tabs rosuvastatin 40 mg tablet 40 mg PO DAILY #90 tabs 12/14/21 albuterol sulfate 2.5 mg/3 mL 2.5 mg (3 mL) inhalation QID PRN 01/08/22 (0.083 %) solution for nebulization shortness of breath or wheezing #75 mL diltiazem HCl 180 mg 180 mg PO DAILY 90 days #90 caps 06/20/22 capsule,extended release 24 hr (Cardizem CD) lisinopril 20 mg tablet 20 mg PO DAILY #30 tabs 10/26/22 apixaban 5 mg tablet (Eliquis) 5 mg PO BID #60 tabs 01/30/23 capecitabine 500 mg tablet 1,500 mg (3 x 500 mg) PO BID #120 05/05/23 tabs amoxicillin 875 mg tablet 875 mg PO BID #14 tabs 05/24/23 benzonatate 100 mg capsule 100 mg PO TID PRN cough #20 caps 05/24/23 Allergies Allergy/AdvReac Type Severity Reaction Status Date / Time ibuprofen [IBUPROFEN] Allergy Severe SICK TO Verified 05/05/23 10:10 MY STOMACH ciprofloxacin [From CIPRO] Allergy Intermediate SICK Verified 05/05/23 10:10 doxycycline Allergy Intermediate Dizziness Verified 05/05/23 10:10 levofloxacin [From LEVAQUIN] Allergy Intermediate SICK , Verified 05/05/23 10:10 nausea, dizziness x days flu vaccine Allergy Intermediate Swelling Uncoded 05/05/23 10:10 Review of Systems Review of Systems: As per HPI. Yes all other systems are reviewed and are negative Constitutional: Constitutional: Reports as per HPI [facility] Past Medical History Medical History Restrictive lung disease Dyspnea on exertion Smoking greater than 30 pack years CKD (chronic kidney disease) stage 3, GFR 30-59 ml/min Babesiasis Paroxysmal atrial fibrillation CAD (coronary artery disease) Asthma Diabetes Bronchitis Obesity (BMI 30-39.9) Vitamin D deficiency Osteopenia Dyslipidemia Hypertension Diabetic 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 GERD (gastroesophageal reflux disease) Surgical History Hx of cataract surgery Hx of foot surgery Hx of colonoscopy History of esophagogastroduodenoscopy (EGD) Family History Family History Father Heart failure Diabetes mellitus Mother Cholangiocarcinoma Diabetes mellitus Family history of hypertension Family history of heart attack Brother Lung cancer Family/Other Breast cancer Sister Social History Social History Household Members: Family Housing: House Do you presently have visiting nurse or other home services: No Alcohol intake: current Alcohol intake frequency: a few times a month Alcohol type: beer Patient Tobacco Use Status: Former Tobacco user Tobacco use type: Cigarette Years Smoked: 45 e-Cigarette/Vaping Use: Never Used Advance Directives: Yes Advance Directives on File: Yes Advance Directives Date on File: 10/19/22 service: No Current occupational status: unemployed Physical Exam ED Vital Signs: Vital Signs - 24 hr 05/24/23 06:21 Temperature 98.1 F Pulse Rate 77 Respiratory Rate 18 Blood Pressure 178/71 H Pulse Oximetry 98 Oxygen Delivery Method Room Air BMI result Body Mass Index 34.8 Vital signs have been reviewed and appear to be correct. Blood pressure elevated. Heart rate normal. Respiratory rate normal. Temperature normal. Oxygen saturation normal. Const General: cooperative, healthy appearing and no acute distress Orientation/consciousness: oriented to person, oriented to place, oriented to time and patient oriented x3 Limitations: no limitations HENMT Head: Yes normocephalic and Yes atraumatic Ears: external ears normal, TM normal on the right and TM abnormal wth effusion purulent on the left and erythematous on the left General nose exam: Normal external nose present Face and sinus: Yes face symmetric Mouth: oropharynx normal and moist mucous membranes Throat: Yes uvula midline Eyes Pupils: Equal, round and reactive pupils present Neck Neck: Yes normal visual inspection and Yes supple Resp Effort & Inspection: normal respiratory effort and able to speak in complete sentences Auscultation: clear to auscultation bilaterally and no wheezes Cardio Rate: regular rate Rhythm: regular rhythm Heart sounds: S1 normal heart sound present and S2 normal heart sound present GI Palpation (GI): Soft to palpation and nontender Auscultation: normoactive bowel sounds General: Yes no CVA tenderness Back/Spine/Pelvis Back: no CVA tenderness Skin General skin exam: elasticity normal and turgor normal Neuro General: oriented to person, oriented to place, oriented to time, patient oriented x3, moves all extremities, no focal motor deficits and CN's II-XI intact bilaterally Cranial nerves: Yes Equal, round and reactive pupils present Cognition (Neuro): normal cognition Extrem General: Yes full ROM, Yes no pedal edema and Yes no calf tenderness Psych Mental Status: mental status grossly normal Affect: normal affect Thought process: Normal thought process present Medical Decision Making Medical Decision Making [facility] Narrative: Patient is a 62-year old female with history of asthma, HTN presenting to the emergency department with complaint of nonproductive cough as well as chest pain associated with coughing episodes and left ear pain for the past 3 days. On exam patient is awake, A+Ox3, BP elevated, likely secondary to patient not taking her medication this morning, VS otherwise WNL, afebrile, normal neurological exam without focal deficits, physical exam findings as above. Given reported symptoms and physical exam findings, initial differential includes otitis media, viral URI, covid, flu, bronchitis, pneumonia. Swabs for flu and Covid negative. EKG shows normal sinus rhythm. X-ray notable for no evidence of pneumonia. My interpretation is in agreement with the radiologist's interpretation. Will treat patient for AOM with amoxicillin, will prescribe benzonatate for cough. Instructed patient to follow-up with her primary care provider. Return precautions discussed at bedside. Patient verbalized understanding of and agreement with plan. Differential Diagnosis Differential Diagnoses: The differential diagnosis associated with the presentation includes As per [facility]. Lab Data [facility] Lab Attestation statement: I reviewed the patient's lab results. As per [facility]. Labs: Lab Results 05/24/23 Range/Units 09:45 Influenza Type A (PCR) NEGATIVE (Negative) Influenza Type B (PCR) NEGATIVE (Negative) RSV RNA Qual (PCR) NEGATIVE (Negative) SARS-CoV-2 RNA (RT-PCR) NEGATIVE (Negative) Independent Interpretation I performed an independent interpretation of an: EKG (Normal sinus rhythm, rate 67bpm, normal [place] interval and QTc, no evidence of STEMI) and Plain X-Ray Interpretation: No evidence of pneumonia Radiology Impression Discussion of test interpretation with radiology: I have reviewed the radiologist's reading. Radiologist Impression: XR/XR chest 1V IMPRESSION: No acute cardiopulmonary process. External Record Review External record reviewed: Inpatient record and Outpatient record Prescription Management I considered prescription management with: Antibiotic and Other Discharge Plan Discharge Clinical Impression: Upper respiratory virus Acute otitis media Qualifiers: Laterality: left Instructions: Ear Infection (ED), Upper Respiratory Infection (DC) Additional Instructions: You were evaluated in the emergency department today for ear pain and cough. Your evaluation suggests that your pain is due to an ear infection. Your Covid and flu swabs were negative and your chest x-ray did not show evidence of pneumonia. Please take your prescribed antibiotics as directed for the full course of the medication. You are being prescribed benzonatate which you can take every 8 hours as needed for cough. We recommend that you take 650 mg of Tylenol every 6 hours as needed for pain. Please follow up with your primary care provider within two days. Return to the emergency department if you experience hearing loss, discharge from your ear, headaches, fevers, shortness of breath or difficulty breathing, recurrent vomiting, or any other concerning symptoms. Prescriptions: New benzonatate 100 mg capsule 100 mg PO TID PRN (Reason: cough) Qty: 20 0RF amoxicillin 875 mg tablet 875 mg PO BID Qty: 14 0RF No Action cholecalciferol (vitamin D3) 25 mcg (1,000 unit) capsule 25 mcg PO DAILY Qty: 30 11RF metformin 500 mg tablet extended release 24 hr 1,000 mg PO BID Qty: 360 1RF Hold Instructions: Resume on 10/28/22. rosuvastatin 40 mg tablet 40 mg PO DAILY Qty: 90 1RF diltiazem HCl [Cardizem CD] 180 mg capsule,extended release 24hr 180 mg PO DAILY 90 Days Qty: 90 3RF Eliquis 5 mg tablet 5 mg PO BID Qty: 60 6RF Hold Instructions: Resume on 02/18/23. resume Eliquis on 02/18/23 albuterol sulfate 2.5 mg /3 mL (0.083 %) solution for nebulization 2.5 mg inhalation QID PRN (Reason: shortness of breath or wheezing) Qty: 75 0RF capecitabine 500 mg Tablet 1,500 mg PO BID Qty: 120 2RF Rx Instructions: Take 1500 mg twice a day days 1-5/week, on days of radiation for 8 weeks. must administer with water 30 minutes after a meal glipizide 10 mg tablet 10 mg PO BID acetaminophen 500 mg Tablet 1,000 mg PO DAILY PRN (Reason: Pain) insulin degludec [Tresiba FlexTouch U-100] 100 unit/mL (3 mL) insulin pen 12 unit subcut DAILY lisinopril 20 mg tablet 20 mg PO DAILY Qty: 30 0RF (DME) FreeStyle Lite Strips Strip See Rx Instructions Not Applicable DAILY Qty: 10 Rx Instructions: As directed (DME) lancets [FreeStyle Lancets] 28 gauge misc See Rx Instructions .Route Qty: 100 3RF Rx Instructions: As directed 1x/daily ezetimibe 10 mg tablet 10 mg PO DAILY Qty: 30 11RF sertraline 100 mg tablet 100 mg PO DAILY PRN (Reason: Anxiety) melatonin 1 mg tablet 1 mg PO BEDTIME famotidine 20 mg tablet 20 mg PO BID
== END 2023-05-24 13:04 | disposition home or self-care (01) ==
PROVIDERS: Emergency Provider Emergency Medicine; PCP Nurse Practitioner Primary Care
DX: J06.9 Acute upper respiratory infection, unspecified (principal); H66.92 Otitis media, unspecified, left ear; R05.9 Cough, unspecified; Z11.52 Encounter for screening for COVID-19; Z20.828 Contact with and (suspected) exposure to other viral communicable diseases; R06.09 Other forms of dyspnea; E11.22 Type 2 diabetes mellitus with diabetic chronic kidney disease; I12.9 Hypertensive chronic kidney disease with stage 1 through stage 4 chronic kidney disease, or unspecified chronic kidney disease; N18.30 Chronic kidney disease, stage 3 unspecified; I48.0 Paroxysmal atrial fibrillation; Z79.4 Long term (current) use of insulin; Z79.899 Other long term (current) drug therapy; Z79.84 Long term (current) use of oral hypoglycemic drugs; Z79.01 Long term (current) use of anticoagulants; E78.5 Hyperlipidemia, unspecified
CPT/HCPCS: 0241U; 71045; 93005; 99283

== ENCOUNTER → 2023-05-24 11:54 | Outpatient (BNV) | payer OTHER, SELFPAY | PROVIDERS: Emergency Provider Emergency Medicine; PCP Nurse Practitioner Primary Care; Visit Provider Internal Medicine Cardiovascular Disease | DX: R07.9 Chest pain, unspecified (principal) | CPT/HCPCS: 93010 ==

== ENCOUNTER 2023-06-09 23:53 | Emergency (ER) | payer OTHER, SELFPAY ==
--- NOTE | 2023-06-10 | ECG_ITS ---
Test Reason : CHEST PAIN Blood Pressure : / mmHG Vent. Rate : 066 BPM Atrial Rate : 066 BPM P-R Int : 190 ms QRS Dur : 078 ms QT Int : 378 ms P-R-T Axes : 049 006 039 degrees QTc Int : 396 ms Normal sinus rhythm Normal ECG When compared with ECG of 24-MAY-2023 12:39, No significant change was found Referred By: Generic ED Physician Electronically Signed By:Gaudencio Murphy
[2023-06-10 00:16] VITALS: BP 176/58; PULSE 64; RESP 19; TEMP 36.6; O2SAT 96
[2023-06-10 00:19] VITALS: BP 176/58; PULSE 66; RESP 19; TEMP 36.5; O2SAT 96; BMI 36.0
[2023-06-10 00:31] LABS: MANUAL DIFF FLAG NO
[2023-06-10 00:34] LABS: Basophils Percent Auto 0.6 % (0-2); Eosinophils Absolute Auto 0.2 X10*3/uL (0.0-0.4); Eosinophils Percent Auto 2.6 % (0-4); Hematocrit 36.5 % (37.0-47.0); Hemoglobin 12.3 g/dl (12.0-16.0); Imm Gran Abs Auto 0.01 X10*3/uL (0.00-0.03); Imm Gran Pct Auto 0.2 % (0.0-0.4); Lymphocytes Absolute Auto 2.4 X10*3/uL (1.2-4.9); Lymphocytes Percent Auto 38.9 % (20-40); Mean Corpuscular HGB Conc 33.7 g/dl (31.0-35.0); Mean Corpuscular Hemoglobin 32.6 pg (27.0-33.0); Mean Corpuscular Volume 96.8 fL (80.0-98.0); Mean Platelet Volume 8.6 fL (9.4-12.3); Monocytes Absolute Auto 0.5 X10*3/uL (0.1-1.2); Monocytes Percent Auto 7.5 % (2-11); Neutrophils Absolute Auto 3.1 x10*3/uL (2.0-8.3); Neutrophils Percent Auto 50.2 % (45-73); Platelet Count 268 X10*3/uL (160-400); Red Blood Count 3.77 X10*6/uL (4.20-5.50); Red Cell Distribution Width 12.2 % (11.0-16.0); White Blood Count 6.2 X10*3/uL (4.8-10.8)
[2023-06-10 00:52] LABS: Troponin-I High Sensitivity < 2.7 ng/L (<3.5-17.0)
[2023-06-10 01:00] LABS: Alanine Aminotransferase 20 U/L (0-31); Albumin Level 3.8 g/dL (3.5-5.0); Alkaline Phosphatase 62 U/L (39-117); Anion Gap 13 (12-20); Aspartate Amino Transferase 20 U/L (5-31); Bilirubin Direct < 0.2 mg/dL (0.0-0.5); Bilirubin Total 0.2 mg/dL (0.0-1.0); Blood Urea Nitrogen 21 mg/dL (9-16); Calcium 9.9 mg/dL (8.4-10.2); Carbon Dioxide 26 mmol/L (22-29); Chloride 109 mmol/L (96-108); Creatinine Clr Calc Pharmacy 56.2; Estimated Glomerular Filt Rate 51; Glucose Random 100 mg/dL (60-115); Potassium 4.5 mmol/L (3.3-5.1); Sodium 143 mmol/L (135-145); Total Protein 6.8 g/dL (6.5-8.0)
[2023-06-10 01:45] VITALS: BP 164/59; PULSE 70; RESP 15; TEMP 36.4; O2SAT 96
[2023-06-10 02:00] VITALS: BP 172/83; PULSE 67; RESP 18; O2SAT 97
--- NOTE | 2023-06-10 02:16 | ED.GENADULT ---
HPI - General Adult General Chief complaint: General Medical Stated complaint: chest tightness and hypertension Time Seen by Provider: 06/10/23 02:16 History of Present Illness HPI narrative: The patient is a 62-year-old woman with a history of hypertension. She had been feeling fine during the day today. This evening she started to feel hot and possibly mildly sweaty and some mild sense of chest tightness. She checked her blood pressure and her systolic blood pressure was 200. She was concerned and came to the emergency room for evaluation. She also has a bit of a headache. She denies any sense of really feeling feverish. She has not been in contact with anybody who has been sick and she does not feel that she is sick otherwise. Related Data Home Medications Medication Instructions Recorded Confirmed sertraline 100 mg tablet 100 mg PO DAILY PRN Anxiety 02/26/20 05/05/23 blood sugar diagnostic (FreeStyle #10 ea 06/23/21 05/05/23 Lite Strips) acetaminophen 500 mg tablet 1,000 mg PO DAILY PRN Pain 10/24/22 05/05/23 glipizide 10 mg tablet 10 mg PO BID 10/24/22 05/05/23 insulin degludec 100 unit/mL (3 12 unit subcut DAILY 10/24/22 05/05/23 mL) subcutaneous pen (Tresiba FlexTouch U-100 insulin) melatonin 1 mg tablet 1 mg PO BEDTIME 11/21/22 05/05/23 famotidine 20 mg tablet 20 mg PO BID 02/28/23 05/05/23 Previous Rx's Medication Instructions Recorded cholecalciferol (vitamin D3) 25 25 mcg PO DAILY #30 caps 04/04/21 mcg (1,000 unit) capsule ezetimibe 10 mg tablet 10 mg PO DAILY #30 tabs 06/23/21 lancets 28 gauge (FreeStyle #100 ea 06/23/21 Lancets) metformin 500 mg tablet,extended 1,000 mg (2 x 500 mg) PO BID #360 12/14/21 release 24 hr tabs rosuvastatin 40 mg tablet 40 mg PO DAILY #90 tabs 12/14/21 albuterol sulfate 2.5 mg/3 mL 2.5 mg (3 mL) inhalation QID PRN 01/08/22 (0.083 %) solution for nebulization shortness of breath or wheezing #75 mL diltiazem HCl 180 mg 180 mg PO DAILY 90 days #90 caps 06/20/22 capsule,extended release 24 hr (Cardizem CD) lisinopril 20 mg tablet 20 mg PO DAILY #30 tabs 10/26/22 apixaban 5 mg tablet (Eliquis) 5 mg PO BID #60 tabs 01/30/23 capecitabine 500 mg tablet 1,500 mg (3 x 500 mg) PO BID #120 05/05/23 tabs amoxicillin 875 mg tablet 875 mg PO BID #14 tabs 05/24/23 benzonatate 100 mg capsule 100 mg PO TID PRN cough #20 caps 05/24/23 Allergies Allergy/AdvReac Type Severity Reaction Status Date / Time ibuprofen [IBUPROFEN] Allergy Severe SICK TO Verified 06/10/23 00:18 MY STOMACH ciprofloxacin [From CIPRO] Allergy Intermediate SICK Verified 06/10/23 00:18 doxycycline Allergy Intermediate Dizziness Verified 06/10/23 00:18 levofloxacin [From LEVAQUIN] Allergy Intermediate SICK , Verified 06/10/23 00:18 nausea, dizziness x days flu vaccine Allergy Intermediate Swelling Uncoded 06/10/23 00:18 Review of Systems Review of Systems: Yes all other systems are reviewed and are negative PMFSH Past Medical History Medical History Restrictive lung disease Dyspnea on exertion Smoking greater than 30 pack years CKD (chronic kidney disease) stage 3, GFR 30-59 ml/min Babesiasis Paroxysmal atrial fibrillation CAD (coronary artery disease) Asthma Diabetes Bronchitis Obesity (BMI 30-39.9) Vitamin D deficiency Osteopenia Dyslipidemia Hypertension Diabetic 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 GERD (gastroesophageal reflux disease) Surgical History Hx of cataract surgery Hx of foot surgery Hx of colonoscopy History of esophagogastroduodenoscopy (EGD) Family History Family History Father Heart failure Diabetes mellitus Mother Cholangiocarcinoma Diabetes mellitus Family history of hypertension Family history of heart attack Brother Lung cancer Family/Other Breast cancer Sister Social History Social History Household Members: Family Housing: House Do you presently have visiting nurse or other home services: No Alcohol intake: current Alcohol intake frequency: a few times a month Alcohol type: beer Patient Tobacco Use Status: Former Tobacco user Tobacco use type: Cigarette Years Smoked: 45 e-Cigarette/Vaping Use: Never Used Advance Directives: Yes Advance Directives on File: Yes Advance Directives Date on File: 10/19/22 service: No Current occupational status: unemployed Physical Exam ED Vital Signs: Vital Signs - 24 hr 06/10/23 00:16 06/10/23 00:19 06/10/23 01:45 Temperature 97.9 F 97.7 F 97.6 F Pulse Rate 64 66 70 Respiratory Rate 19 19 15 Blood Pressure 176/58 H 176/58 H 164/59 H Pulse Oximetry 96 96 96 Oxygen Delivery Method Room Air Room Air Room Air 06/10/23 02:00 Temperature Pulse Rate 67 Respiratory Rate 18 Blood Pressure 172/83 H Pulse Oximetry 97 Oxygen Delivery Method Room Air BMI result Body Mass Index 36.0 Const Other: The patient is awake and alert. She is pleasant and cooperative. She does not appear acutely ill or toxic in any way. She does not appear uncomfortable. HENMT Other: Face is symmetrical. Mucous membranes moist. Eyes Other: Pupils are round equal, conjunctivae are clear, extraocular movements intact Neck Neck: Yes no JVD Resp Effort & Inspection: normal respiratory effort Cardio Rate: regular rate Rhythm: regular rhythm Heart sounds: S1 normal heart sound present and S2 normal heart sound present GI Other: Abdomen is soft and nontender Skin Other: Skin is dry and unremarkable Neuro Other: The patient is awake, alert, pleasant, cooperative. Cranial nerves are grossly intact. She moves her extremities normally and seems grossly neurologically intact Extrem Other: No peripheral edema. No calf swelling or tenderness. Medications Administered Discontinued Medications Generic Name Dose Route Start Last Admin Trade Name Freq PRN Reason Stop Dose Admin Acetaminophen 975 mg 06/10/23 02:21 06/10/23 02:43 Acetaminophen 325 Mg Tablet PO 06/10/23 02:22 975 mg ONCE ONE Administration Medical Decision Making Medical Decision Making [facility] Narrative: The patient is a 62-year-old woman who presented with high blood pressure and vague sense of chest tightness. She has a normal EKG. Troponins are flat. Clinically she looks well otherwise. Her blood pressure improved spontaneously. She had a complaint of a mild headache that seemed to be an incidental complaint. She was given acetaminophen. I think she may be discharged to follow up with the regular doctor. Lab Data 06/10/23 00:26 06/10/23 00:26 Labs: Lab Results 06/10/23 06/10/23 Range/Units 00:26 02:42 WBC 6.2 (4.8-10.8) X10*3/uL RBC 3.77 L (4.20-5.50) X10*6/uL Hgb 12.3 (12.0-16.0) g/dl Hct 36.5 L (37.0-47.0) % MCV 96.8 (80.0-98.0) fL MCH 32.6 (27.0-33.0) pg MCHC 33.7 (31.0-35.0) g/dl RDW 12.2 (11.0-16.0) % Plt Count 268 (160-400) X10*3/uL MPV 8.6 L (9.4-12.3) fL Immature Gran % (Auto) 0.2 (0.0-0.4) % Neut % (Auto) 50.2 (45-73) % Lymph % (Auto) 38.9 (20-40) % [place] % (Auto) 7.5 (2-11) % Eos % (Auto) 2.6 (0-4) % Baso % (Auto) 0.6 (0-2) % Lymph # (Auto) 2.4 (1.2-4.9) X10*3/uL [place] # (Auto) 0.5 (0.1-1.2) X10*3/uL Eos # (Auto) 0.2 (0.0-0.4) X10*3/uL Baso # (Auto) 0.0 (0.0-0.2) X10*3/uL Abs Immat Gran (auto) 0.01 (0.00-0.03) X10*3/uL Absolute Neuts (auto) 3.1 (2.0-8.3) x10*3/uL Absolute Nucleated RBC 0.000 (0.0-0.012) X10*3/uL Nucleated RBC % (auto) 0.0 (0.0-0.2) /100WBC Sodium 143 (135-145) mmol/L Potassium 4.5 (3.3-5.1) mmol/L Chloride 109 H (96-108) mmol/L Carbon Dioxide 26 (22-29) mmol/L Anion Gap 13 (12-20) BUN 21 H (9-16) mg/dL Creatinine 1.09 (0.5-1.4) mg/dL Estim Creat Clear Calc 56.2 Estimated GFR 51 Random Glucose 100 (60-115) mg/dL Calcium 9.9 (8.4-10.2) mg/dL Total Bilirubin 0.2 (0.0-1.0) mg/dL Direct Bilirubin < 0.2 (0.0-0.5) mg/dL AST 20 (5-31) U/L ALT 20 (0-31) U/L Alkaline Phosphatase 62 (39-117) U/L Troponin I High Sens < 2.7 < 2.7 (<3.5-17.0) ng/L Total Protein 6.8 (6.5-8.0) g/dL Albumin 3.8 (3.5-5.0) g/dL Independent Interpretation I performed an independent interpretation of an: EKG Interpretation: EKG at 00:10 shows normal sinus rhythm at 66 beats per minute. It is a normal EKG. No change from previous. Discharge Plan Discharge Clinical Impression: Chest tightness, Hypertension Patient Disposition: Home, Self-Care Additional Instructions: Your testing in the emergency room today is very reassuring. There is no sign of a heart attack. Please continue your regular medications. Please follow-up soon with your regular doctor to discuss this episode further. Return to the emergency room if worse. Prescriptions: No Action cholecalciferol (vitamin D3) 25 mcg (1,000 unit) capsule 25 mcg PO DAILY Qty: 30 11RF metformin 500 mg tablet extended release 24 hr 1,000 mg PO BID Qty: 360 1RF Hold Instructions: Resume on 10/28/22. rosuvastatin 40 mg tablet 40 mg PO DAILY Qty: 90 1RF diltiazem HCl [Cardizem CD] 180 mg capsule,extended release 24hr 180 mg PO DAILY 90 Days Qty: 90 3RF Eliquis 5 mg tablet 5 mg PO BID Qty: 60 6RF Hold Instructions: Resume on 02/18/23. resume Eliquis on 02/18/23 albuterol sulfate 2.5 mg /3 mL (0.083 %) solution for nebulization 2.5 mg inhalation QID PRN (Reason: shortness of breath or wheezing) Qty: 75 0RF capecitabine 500 mg Tablet 1,500 mg PO BID Qty: 120 2RF Rx Instructions: Take 1500 mg twice a day days 1-5/week, on days of radiation for 8 weeks. must administer with water 30 minutes after a meal glipizide 10 mg tablet 10 mg PO BID acetaminophen 500 mg Tablet 1,000 mg PO DAILY PRN (Reason: Pain) insulin degludec [Tresiba FlexTouch U-100] 100 unit/mL (3 mL) insulin pen 12 unit subcut DAILY lisinopril 20 mg tablet 20 mg PO DAILY Qty: 30 0RF benzonatate 100 mg capsule 100 mg PO TID PRN (Reason: cough) Qty: 20 0RF amoxicillin 875 mg tablet 875 mg PO BID Qty: 14 0RF (DME) FreeStyle Lite Strips Strip See Rx Instructions Not Applicable DAILY Qty: 10 Rx Instructions: As directed (DME) lancets [FreeStyle Lancets] 28 gauge misc See Rx Instructions .Route Qty: 100 3RF Rx Instructions: As directed 1x/daily ezetimibe 10 mg tablet 10 mg PO DAILY Qty: 30 11RF sertraline 100 mg tablet 100 mg PO DAILY PRN (Reason: Anxiety) melatonin 1 mg tablet 1 mg PO BEDTIME famotidine 20 mg tablet 20 mg PO BID Referrals: Areli Elam, LIBRARY CIRC[employer]ATION TECHNICIAN [Nurse Practitioner] - (chest tightness, hypertension)
[2023-06-10] MEDS: Acetaminophen 325 MG TABLET 975 MG PO (02:43)
[2023-06-10 03:13] LABS: Troponin-I High Sensitivity < 2.7 ng/L (<3.5-17.0)
[2023-06-10 03:24] VITALS: BP 147/64; PULSE 71; RESP 18; TEMP 36.1; O2SAT 97
== END 2023-06-10 03:37 | disposition home or self-care (01) ==
PROVIDERS: Emergency Provider Emergency Medicine
DX: R07.89 Other chest pain (principal); I12.9 Hypertensive chronic kidney disease with stage 1 through stage 4 chronic kidney disease, or unspecified chronic kidney disease; E11.22 Type 2 diabetes mellitus with diabetic chronic kidney disease; N18.30 Chronic kidney disease, stage 3 unspecified; Z79.899 Other long term (current) drug therapy; Z79.84 Long term (current) use of oral hypoglycemic drugs
CPT/HCPCS: 36415; 80048; 80076; 84484; 85025; 93005; 99283; 99285

== ENCOUNTER → 2023-06-10 00:10 | Outpatient (BNV) | payer OTHER, SELFPAY | PROVIDERS: Emergency Provider Emergency Medicine; Visit Provider Internal Medicine Cardiovascular Disease | DX: R07.9 Chest pain, unspecified (principal) | CPT/HCPCS: 93010 ==

== ENCOUNTER 2023-06-15 08:36 | Outpatient (REF) | payer OTHER, SELFPAY ==
[2023-06-15 09:59] LABS: Anion Gap 13 (12-20); Blood Urea Nitrogen 17 mg/dL (9-16); Calcium 9.3 mg/dL (8.4-10.2); Carbon Dioxide 26 mmol/L (22-29); Chloride 108 mmol/L (96-108); Estimated Glomerular Filt Rate 55; Glucose Random 138 mg/dL (60-115); Potassium 3.9 mmol/L (3.3-5.1); Sodium 143 mmol/L (135-145)
== END 2023-06-15 08:37 | disposition home or self-care (01) ==
LOC: HO.LAB 08:36
PROVIDERS: PCP Nurse Practitioner Primary Care; Visit Provider Nurse Practitioner Primary Care
DX: E11.59 Type 2 diabetes mellitus with other circulatory complications (principal); E11.21 Type 2 diabetes mellitus with diabetic nephropathy; I15.2 Hypertension secondary to endocrine disorders
CPT/HCPCS: 36415; 80048

== ENCOUNTER 2023-06-20 08:47 | Outpatient (AMB) | payer OTHER, SELFPAY ==
--- NOTE | 2023-06-20 08:51 | MHC.OFFVIS ---
Intake Vital Signs 06/20/23 09:00 Height 5 ft 3 in Weight 194 lb 0.108 oz BMI 34.4 BP 143/65 H Blood Pressure Location Rt brachial Position Sitting Pulse 72 Intake Visit Reasons: 8 Weeks follow up Intake Note: Zee presents to in office visit today in follow up GERD. CC: Patient c/o nausea when eating and lower abdominal pain. Denies other GI symptoms today. 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.0 - Malignant neoplasm of anus, unspecified (2) GERD (gastroesophageal reflux disease): Code(s): K21.9 - Gastro-esophageal reflux disease without esophagitis Qualifiers: Esophagitis presence: with esophagitis (3) Gastroparesis: Comment: Patient could not tolerate Reglan so she is advised to eat smaller more frequent meals and should her condition worse we may need consider referral for consideration of gastric pacemaker at a tertiary center aeb Code(s): K31.84 - Gastroparesis (4) Family history of polyps in the colon: Comment: Brother, scope 2020= 2TA repeat 5 years Code(s): Z83.71 - Family history of colonic polyps Plan She has her appt with Dr. Ty this Monday. She had her scans and there is a suspicious mass in her right inguinal area. The procedure was well tolerated. The results were explained and the patient is agreeable to the follow-up interval as stated. The bowel pattern has returned to normal. Education was provided to tell any 1st degree relatives about their findings to be sure that they are screened by age 45. Educated that they will be put on a recall list when it is time for their repeat scope but should they move out of state or away from the hospital they will need to remember along with their primary to repeat the procedure in a timely fashion to avoid any adverse complications. She has a good outlook, and she says after 17 years I have a boyfriend. She some mild worries about having a colostomy bag but I told her that usually this type of cancers treated 1st with radiation and chemotherapy prior to considering any surgery. Also, if she has surgery because this is isolated to the last part of the colon/rectum it is unlikely she would have any severe lost for a long period of time. This seemed to help her and made her feel better. She is having a lot of nosebleeds and had to stop her xarelto (she advised the clinic) nd her jafib has been with RVR subjectively she is having palpitations and a burning in my heart. We discuss that there is a Watchman device that may be helpful She continues on famotidine and fiber with good control. ROV 8 weeks. TODAY'S VISIT She is here today with her dtr who is supportive. She has been referred to [facility] for beam radiation therapy, there may be some confusion regarding whether she should start the chemo now between [facility] oncology and Dr. Ty. Her dtr is concerned about the delay in tx, and I advise them to call both offices and get this clarified. She continues on famotidine and fiber with good control. ROV 6 mos. [facility] Medical History Restrictive lung disease Dyspnea on exertion Smoking greater than 30 pack years CKD (chronic kidney disease) stage 3, GFR 30-59 ml/min Babesiasis Paroxysmal atrial fibrillation CAD (coronary artery disease) Asthma Diabetes Bronchitis Obesity (BMI 30-39.9) Vitamin D deficiency Osteopenia Dyslipidemia Hypertension Diabetic 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 GERD (gastroesophageal reflux disease) Surgical History Hx of cataract surgery Hx of foot surgery Hx of colonoscopy History of esophagogastroduodenoscopy (EGD) Family History Father Heart failure Diabetes mellitus Mother Cholangiocarcinoma Diabetes mellitus Family history of hypertension Family history of heart attack Brother Lung cancer Family/Other Breast cancer Sister Social History Household Members: Family Housing: House Do you presently have visiting nurse or other home services: No Alcohol intake: current Alcohol intake frequency: a few times a month Alcohol type: beer Patient Tobacco Use Status: Former Tobacco user Tobacco use type: Cigarette Years Smoked: 45 e-Cigarette/Vaping Use: Never Used Advance Directives Date on File: 10/19/22 service: No Current occupational status: unemployed Review of Systems Const Denies fatigue, Denies fever(s), Denies night sweats, Denies poor appetite and Denies weight loss ENT Reports Normal hearing present, Denies dental pain, Denies dysphagia, Denies hearing loss, Denies mouth pain, Denies odynophagia, Denies throat swelling, Denies tongue swelling and Reports other (Dentition adequate) Card Reports no additional complaints Resp Reports no additional complaints GI Details: Reports abdominal pain, Denies melena, Denies bloating, Denies hematochezia, Reports constipation, Denies GI cramping, Denies dysphagia, Denies excessive flatus, Denies early satiety, Reports heartburn, Denies diarrhea, Denies nausea, Denies odynophagia, Denies vomiting and Denies hematemesis Skin/Breast Denies pruritus, Denies lesions, Denies rash and Denies jaundice Neuro Reports Normal hearing present and Denies Abnormal speech present Endo Denies fatigue Aller/Immun Denies throat swelling and Denies tongue swelling Physical Exam Vital Signs: Last Vital Signs Pulse 72 06/20/23 09:00 BP 143/65 H 06/20/23 09:00 BMI result Body Mass Index 34.4 Const General: cooperative, no acute distress, well developed and well groomed Nutritional Appearance: well nourished and obese Orientation/consciousness: oriented to person, oriented to place and oriented to time Limitations: language barrier HEENT Head: Yes normocephalic and Yes atraumatic Eyes General: appearance normal, both eyes and all related structures Pupils: Equal, round and reactive pupils present Neck Neck: Yes normal visual inspection and Yes no lymphadenopathy Thyroid: Thyroid normal Resp Effort & Inspection: normal respiratory effort and able to speak in complete sentences Auscultation: clear to auscultation bilaterally Cardio Rate: regular rate Rhythm: regular rhythm Heart sounds: Normal, physiologic split S2 sound present Peripheral pulses: radial pulses present and posterior tibial pulses present GI Inspection: No distended, Yes Abdominal panniculus present and Yes obesity Palpation (GI): Soft to palpation, nontender, no guarding, not rigid and No hepatosplenomegaly present Percussion: Yes normal to percussion Auscultation: normal bowel sounds Rectal Exam - Female: deferred Skin General skin exam: no rashes or lesions noted, turgor normal, skin not dry, no jaundice, No spider nevi and no striae Rashes: no rashes Nails: normal Neuro General: oriented to person, oriented to place and oriented to time Cranial nerves: Yes Equal, round and reactive pupils present and Yes Normal hearing present Speech: No Abnormal speech present Extrem General: Yes normal to inspection, No clubbing, No cyanosis and No edema Psych Appearance: grossly normal and well kempt Mental Status: mental status grossly normal Speech and movement: Normal speech and movement present Affect: normal affect Attitude: cooperative Thought process: Normal thought process present and not confabulating Thought content: Normal thought content present Insight: Limited insight present (Psych) Judgement: Limited judgement present (Psych) Assessment & Plan Assessment & Plan (1) GERD (gastroesophageal reflux disease): Code(s): K21.9 - Gastro-esophageal reflux disease without esophagitis Qualifiers: Esophagitis presence: with esophagitis (2) Gastroparesis: Comment: Patient could not tolerate Reglan so she is advised to eat smaller more frequent meals and should her condition worse we may need consider referral for consideration of gastric pacemaker at a tertiary center aeb Code(s): K31.84 - Gastroparesis (3) Anal squamous cell carcinoma: Code(s): C21.0 - Malignant neoplasm of anus, unspecified Plan She is here today with her dtr who is supportive. She has been referred to [facility] for beam radiation therapy, there may be some confusion regarding whether she should start the chemo now between [facility] oncology and Dr. Ty. Her dtr is concerned about the delay in tx, and I advise them to call both offices and get this clarified. She continues on famotidine and fiber with good control. Before she leaves her daughter says that the patient does not want to admit but she has been having lower abdominal pain. Apparently it is mostly over the suprapubic area and is not directly related to eating or moving her bowels. She can not really describe any exacerbating remitting factors. It seems that this could be bowel spasm related to the rectal cancer so I think will try a course of dicyclomine and see if this settles it for her. ROV 6 mos. Medications: New dicyclomine 10 mg PO QID 120 caps 3RF R10.9 - Unspecified abdominal pain famotidine 20 mg PO BID 60 tabs 6RF K21.9 - Gastro-esophageal reflux disease without esophagitis Coding Level of Care Code Est Pt Level 3 (24239) Diagnoses GERD (gastroesophageal reflux disease) K21.9 Esophagitis presence: with esophagitis Gastroparesis K31.84 Anal squamous cell carcinoma C21.0
[2023-06-20 09:00] VITALS: BP 143/65; PULSE 72; BMI 34.4
== END 2023-06-20 09:37 | disposition home or self-care (01) ==
PROVIDERS: PCP Nurse Practitioner Primary Care; Visit Provider Nurse Practitioner
DX: K21.9 Gastro-esophageal reflux disease without esophagitis (principal); K31.84 Gastroparesis; C21.0 Malignant neoplasm of anus, unspecified
CPT/HCPCS: 99213

== ENCOUNTER → 2023-06-20 08:47 | Outpatient (BNVA) | payer OTHER, SELFPAY | PROVIDERS: PCP Nurse Practitioner Primary Care; Visit Provider Nurse Practitioner | DX: C21.0 Malignant neoplasm of anus, unspecified (principal); K21.9 Gastro-esophageal reflux disease without esophagitis; K31.84 Gastroparesis | CPT/HCPCS: 99212 ==

== ENCOUNTER 2023-07-26 09:38 | Outpatient (AMB) | payer OTHER, SELFPAY ==
[2023-07-26 09:46] VITALS: BP 122/50; PULSE 90; O2SAT 97; BMI 33.5
--- NOTE | 2023-07-26 09:46 | MHC.OFFVIS ---
Vital Signs 07/26/23 09:46 Height 5 ft 3 in Weight 189 lb BMI 33.5 BP 122/50 L Blood Pressure Location Lt brachial Position Sitting Pulse 90 Pulse Source Pulse Oximeter Pulse Oximetry (%) 97 Oxygen Delivery Method Room Air Intake Visit Reasons: COPD Intake Note: pt is here for follow up and states she is coughing for a few days, having chemo and radiation for colon tumor but feels well right now. 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 Allergies ibuprofen [IBUPROFEN] Allergy (Severe, Verified 07/26/23 10:03) SICK TO MY STOMACH ciprofloxacin [From CIPRO] Allergy (Intermediate, Verified 07/26/23 10:03) SICK doxycycline Allergy (Intermediate, Verified 07/26/23 10:03) Dizziness levofloxacin [From LEVAQUIN] Allergy (Intermediate, Verified 07/26/23 10:03) SICK , nausea, dizziness x days flu vaccine Allergy (Intermediate, Uncoded 07/26/23 10:03) Swelling Medication List - Last Reconciled 07/26/23 by Kwame Martinez MD acetaminophen 1,000 mg PO DAILY PRN albuterol sulfate 2.5 mg (3 mL) inhalation QID PRN albuterol sulfate 90 mcg/actuation (Ventolin HFA) inhalation apixaban (Eliquis) 5 mg PO BID blood sugar diagnostic (FreeStyle Lite Strips) As directed capecitabine 1,500 mg (3 x 500 mg) PO BID cholecalciferol (vitamin D3) 25 mcg PO DAILY dicyclomine 10 mg PO QID diltiazem HCl CD (Cardizem CD) 180 mg PO DAILY 90 days ezetimibe 10 mg PO DAILY famotidine 20 mg PO BID glipizide 10 mg PO BID insulin degludec (Tresiba FlexTouch U-100 insulin) 12 units subcut DAILY lancets (FreeStyle Lancets) As directed 1x/daily lisinopril 40 mg PO DAILY loratadine 10 mg PO DAILY melatonin 1 mg PO BEDTIME metformin ER 1,000 mg (2 x 500 mg) PO BID rosuvastatin 40 mg PO DAILY sertraline 100 mg PO DAILY PRN Do you need a note to return to daycare/school/sports/work: No HPI HPI COPD: Details: 63 years old moderately obese the patient , with past history of smoking but quit 2 years ago. Has mild degree of obstructive airway disorder for which she uses albuterol only p.r.n.. She also has mild to moderate restrictive pulmonary disorder due to her obesity. Breathing edwards has been very stable using the albuterol updraft only once or twice a week. She does not need any long-acting BD inhaler. Currently getting chemotherapy and radiation therapy for squamous cell carcinoma of the anal canal at [facility] in [place]. [facility] Medical History Restrictive lung disease Dyspnea on exertion Smoking greater than 30 pack years CKD (chronic kidney disease) stage 3, GFR 30-59 ml/min Babesiasis Paroxysmal atrial fibrillation CAD (coronary artery disease) Asthma Diabetes Bronchitis Obesity (BMI 30-39.9) Vitamin D deficiency Osteopenia Dyslipidemia Hypertension Diabetic 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 GERD (gastroesophageal reflux disease) Surgical History Hx of cataract surgery Hx of foot surgery Hx of colonoscopy History of esophagogastroduodenoscopy (EGD) Family History Father Heart failure Diabetes mellitus Mother Cholangiocarcinoma Diabetes mellitus Family history of hypertension Family history of heart attack Brother Lung cancer Family/Other Breast cancer Sister Social History Household Members: Family Housing: House Do you presently have visiting nurse or other home services: No Alcohol intake: current Alcohol intake frequency: a few times a month Alcohol type: beer Patient Tobacco Use Status: Former Tobacco user Tobacco use type: Cigarette Years Smoked: 45 e-Cigarette/Vaping Use: Never Used Advance Directives Date on File: 10/19/22 service: No Current occupational status: unemployed Review of Systems Const All systems reviewed & are unremarkable except as noted in HPI and below Eyes Reports no additional complaints ENT Reports no additional complaints Card Denies chest pain, Denies irregular heart rhythm and Denies leg edema Resp Reports as per HPI GI Reports constipation Reports no additional complaints Musc Reports no additional complaints Skin/Breast Reports system reviewed and no additional complaints, except as documented Neuro Reports no additional complaints Psych Reports no additional complaints Endo Reports other (Diabetes mellitus) Zachery/Lymph Reports no additional complaints Aller/Immun Reports no additional complaints Physical Exam Vital Signs: Last Vital Signs Pulse 90 07/26/23 09:46 BP 122/50 L 07/26/23 09:46 Pulse Ox 97 07/26/23 09:46 Oxygen Delivery Method Room Air 07/26/23 09:46 BMI result Body Mass Index 33.5 Const General: healthy appearing (Except for being overweight), comfortable, no acute distress, alert and awake Orientation/consciousness: patient oriented x3 HEENT Head: Yes normal to inspection General nose exam: No nasal polyps present and No nasal discharge present Face and sinus: Yes sinuses nontender Mouth: oropharynx normal Throat: Yes posterior oropharynx normal Eyes General: appearance normal, both eyes and all related structures Neck Neck: Yes normal visual inspection, Yes no lymphadenopathy, Yes trachea midline and Yes no JVD Thyroid: Thyroid normal Chest Chest palpation & inspection: normal inspection of the chest, normal palpation of entire chest wall and no tenderness Resp Effort & Inspection: normal respiratory effort Auscultation: clear to auscultation bilaterally, no crackles and no wheezes Cardio Palpation: normal PMI Rate: regular rate Rhythm: regular rhythm Heart sounds: no gallops and no murmurs GI Palpation (GI): Soft to palpation, nontender, No hepatosplenomegaly present and no masses Auscultation: normal bowel sounds Back/Spine/Pelvis Thoracic/Lumbar Spine: thoracic and lumbar spine normal to inspection Skin General skin exam: no rashes or lesions noted Neuro General: patient oriented x3 and no focal motor deficits Cranial nerves: Yes CN's II-XII intact bilaterally Extrem General: Yes normal to inspection, Yes no clubbing, cyanosis or edema and Yes no calf tenderness Psych Appearance: grossly normal and well kempt Speech and movement: Normal speech and movement present Assessment & Plan Assessment & Plan (1) Restrictive lung disease: Comment: PER PFT SHE HAS MILD RESTRICTIVE DISORDER WHICH IS DUE TO HER OBESITY. Code(s): J98.4 - Other disorders of lung Category: Medical Plan: INSTRUCTED TO KEEP, ON LOSING WEIGHT ALSO INSTRUCTED TO DO DEEP BREATHING EXERCISES AT LEAST 3 TIMES A DAY. (2) Smoking greater than 30 pack years: Comment: Patient gives history of smoking actually for about 50 years, 1 pack a day. Luckily she did quit 2 years ago and continues to be motivated to remain smoke free. Code(s): F17.210 - Nicotine dependence, cigarettes, uncomplicated Category: Social Hx Plan: She is participating in Annual lung screening program for a few years at least. (3) Dyspnea on exertion: Comment: She does have history of dyspnea on exertion, which is much less since she quit smoking. She does have mild reactive airways and bouts of cough Code(s): R06.09 - Other forms of dyspnea Category: Medical Plan: Advised to use albuterol HFA 2 puffs Q 4-6 hours only p.r.n. NO NEED TO USE ANY LONG-ACTING BD inhalers Coding Level of Care Code Est Pt Level 3 (75331) Diagnoses Restrictive lung disease J98.4 Smoking greater than 30 pack years F17.210 Dyspnea on exertion R06.09
== END 2023-07-26 10:03 | disposition home or self-care (01) ==
PROVIDERS: PCP Nurse Practitioner Primary Care; Visit Provider Internal Medicine
DX: J98.4 Other disorders of lung (principal); F17.210 Nicotine dependence, cigarettes, uncomplicated; R06.09 Other forms of dyspnea
CPT/HCPCS: 99213

== ENCOUNTER → 2023-07-26 09:38 | Outpatient (BNVA) | payer OTHER, SELFPAY | PROVIDERS: PCP Nurse Practitioner Primary Care; Visit Provider Internal Medicine | DX: J98.4 Other disorders of lung (principal); R06.09 Other forms of dyspnea; F17.210 Nicotine dependence, cigarettes, uncomplicated | CPT/HCPCS: 99212 ==

== ENCOUNTER 2023-08-14 20:48 | Emergency (ER) | payer OTHER, SELFPAY ==
--- NOTE | 2023-08-14 | ECG_ITS ---
Test Reason : GI BLEED Blood Pressure : / mmHG Vent. Rate : 092 BPM Atrial Rate : 092 BPM P-R Int : 262 ms QRS Dur : 084 ms QT Int : 348 ms P-R-T Axes : 055 008 037 degrees QTc Int : 430 ms Sinus rhythm with 1st degree A-V block Otherwise normal ECG When compared with ECG of 10-JUN-2023 00:10, [place] interval has increased Referred By: Generic ED Physician Electronically Signed By:JANNETH BAIG MD
[2023-08-14 21:01] VITALS: BP 114/54; PULSE 89; RESP 20; TEMP 36.6; O2SAT 97; BMI 32.4
[2023-08-14 21:40] LABS: Eosinophils Percent Auto 0.4 % (0-4); Hemoglobin 9.4 g/dl (12.0-16.0); Imm Gran Abs Auto 0.03 X10*3/uL (0.00-0.03); Imm Gran Pct Auto 1.2 % (0.0-0.4); Lymphocytes Absolute Auto 0.1 X10*3/uL (1.2-4.9); Lymphocytes Percent Auto 3.1 % (20-40); MANUAL DIFF FLAG SCAN; Mean Corpuscular HGB Conc 36.2 g/dl (31.0-35.0); Mean Corpuscular Volume 91.2 fL (80.0-98.0); Mean Platelet Volume 8.9 fL (9.4-12.3); Monocytes Percent Auto 0.8 % (2-11); NRBC Pct Auto 0.8 /100WBC (0.0-0.2); Neutrophils Absolute Auto 2.4 x10*3/uL (2.0-8.3); Neutrophils Percent Auto 94.5 % (45-73); Platelet Count 123 X10*3/uL (160-400); Red Blood Count 2.85 X10*6/uL (4.20-5.50); Red Cell Distribution Width 11.7 % (11.0-16.0); SCAN SMEAR FLAG 1; White Blood Count 2.6 X10*3/uL (4.8-10.8)
[2023-08-14 21:57] LABS: Beta-Hydroxybutyrate 0.18 mmol/L (0.02-0.27)
[2023-08-14 21:59] LABS: Alanine Aminotransferase 28 U/L (0-31); Albumin Level 3.4 g/dL (3.5-5.0); Alkaline Phosphatase 54 U/L (39-117); Anion Gap 19 (12-20); Aspartate Amino Transferase 23 U/L (5-31); Bilirubin Total 0.5 mg/dL (0.0-1.0); Blood Urea Nitrogen 31 mg/dL (9-16); Calcium 8.1 mg/dL (8.4-10.2); Carbon Dioxide 18 mmol/L (22-29); Chloride 103 mmol/L (96-108); Creatinine Clr Calc Pharmacy 37.6; Estimated Glomerular Filt Rate 33; Glucose Random 505 mg/dL (60-115); Potassium 4.1 mmol/L (3.3-5.1); Sodium 136 mmol/L (135-145); Total Protein 6.2 g/dL (6.5-8.0)
[2023-08-14 22:03] LABS: SLIDE REVIEW VERIFIED
[2023-08-14 22:04] LABS: Troponin-I High Sensitivity < 2.7 ng/L (<3.5-17.0)
--- OUTSIDE RECORDS SUMMARY | 2023-08-14 22:04 | XMS_ITS | Continuity of Care Document ---
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 Name Role Phone Not on Staff, PCP Primary Care Physician Unavail able Encounter [facility] Date(s): 04/26/23 - 05/26/23 [facility] [address] [place] [id number] Attending Physician: Admtr, Melly Admitting Physician: Admtr, Ar8 Referring Physician: Admtr, Ar8 Allergies, Adverse Reactions, Alerts Substance Reaction Severity Status ciprofloxacin 1 Active Motrin 2 Active Influenza Virus Vaccine 3, 4 Active levoFLOXacin 5 Active 1vomit, dizziness, itchy 2vomit dizziness, itchy 3from ear to fingers 4redness and swelling to side of inection 5vomit, dizziness Medications albuterol 0.083% inhalation solution 3 mL = 2.5 mg, Neb, Every 6 hours, PRN as needed for wheezing, # 90 mL, 0 Refills, Maintenance, 04/15/21 8:48:00 EST, Solution, Partial fill upon patient request if the prescription is for a scheduleII opioid drug. Start Date: 04/15/21 Status: Ordered DilTIAZem (Eqv-Cardizem CD) 120 mg/24 hours oral capsule, extended release 1 capsule = 120 mg, By Mouth, Daily, 0 Refills, Maintenance, 04/15/21 8:46:00 EST, Partial fill upon patient request if the prescription is for a schedule II opioid drug. Start Date: 04/15/21 Status: Ordered Eliquis 5 mg oral tablet 1 tablet = 5 mg, By Mouth, 2 times a day, # 60 tablet, 5 Refills, Maintenance, 04/15/21 8:46:00 EST, Tablet, Partial fill upon patient request if the prescription is for a schedule II opioid drug. Start Date: 04/15/21 Status: Ordered famotidine 20 mg oral tablet 20 mg, 1, tablet, By Mouth, Daily, # 60 tablet, Refills 0, Maintenance, 04/15/21 8:50:00 EST, Partial fill upon patient request if the prescription is for a schedule II opioid drug. Start Date: 04/15/21 Status: Ordered lisinopril 40 mg oral tablet 1 tablet = 40 mg, By Mouth, Daily, # 30 tablet, 0 Refills, Maintenance, 04/15/21 8:43:00 EST, Tablet, Partial fill upon patient request if the prescription is for a schedule II opioid drug. Start Date: 04/15/21 Status: Ordered loratadine 10 mg oral tablet 10 mg, 1, tablet, By Mouth, Daily, # 30 tablet, Refills 0, Maintenance, 04/15/21 8:50:00 EST, Partial fill upon patient request if the prescription is for a schedule II opioid drug. Start Date: 04/15/21 Status: Ordered metFORMIN 500 mg oral tablet 2 tablet = 1,000 mg, By Mouth, 2 times a day, # 60 tablet, 0 Refills, Maintenance, 04/15/21 8:42:00EST, Tablet, Partial fill upon patient request if the prescription is for a schedule II opioid drug. Start Date: 04/15/21 Status: Ordered Myrbetriq 25 mg oral tablet, extended release 1 tablet = 25 mg, By Mouth, Daily, do not crush or chew, # 30 tablet, 0 Refills, Maintenance, 04/15/21 8:51:00 EST, ER Tablet, Partial fill upon patient request if the prescription is for a schedule II opioid drug. Start Date: 04/15/21 Status: Ordered pioglitazone 15 mg oral tablet 1 tablet = 15 mg, By Mouth, 2 times a day, # 30 tablet, 0 Refills, Maintenance, 04/15/21 8:44:00 EST, Tablet, Partial fill upon patient request if the prescription is for a schedule II opioid drug. Start Date: 04/15/21 Status: Ordered rosuvastatin 40 mg oral tablet 1 tablet = 40 mg, By Mouth, Daily, # 30 tablet, 5 Refills, Maintenance, 04/15/21 8:45:00 EST, Tablet, Partial fill upon patient request if the prescription is for a schedule II opioid drug. Start Date: 04/15/21 Status: Ordered sertraline 100 mg oral tablet 1 tablet = 100 mg, By Mouth, 2 times a day, # 30 tablet, 0 Refills, Maintenance, 04/15/21 8:49:00 EST, Tablet, Partial fill upon patient request if the prescription is for a schedule II opioid drug. Start Date: 04/15/21 Status: Ordered Ventolin 0.083% inhalation aly Refills 0, Maintenance, 04/15/21 8:47:00 EST Start Date: 04/15/21 Status: Ordered Vitamin D3 1000 intl units oral tablet 1 tablet = 25 mcg, By Mouth, Daily, # 30 tablet, 0 Refills, Maintenance, 04/15/21 8:45:00 EST, Tablet, Partial fill upon patient request if the prescription is for a schedule II opioid drug. Start Date: 04/15/21 Status: Ordered Problem List Condition Confirmation Course Effective Dates Status Health St atus Informant Obese class II Confirmed Active MG Breast Views * Event Display: MM Mammogram Authored Date: Patient Care team information Care Team Personnel Name: Patricia Upton RN Position: S RN Member Role: Primary Care Nurse Name: Not on Staff, PCP Position: [facility] Physician (General Medicine) Member Role: PCP Care Team Related Persons Name: NITO ROGERS Address: [address] [address]
[2023-08-14 22:17] LABS: Influenza A PCR NEGATIVE (Negative); Influenza B PCR NEGATIVE (Negative); Resp Syncy Virus RNA Qual PCR NEGATIVE (Negative); SARS COV2 PCR INHOUSE NEGATIVE (Negative)
--- NOTE | 2023-08-14 22:29 | ED.GENADULT ---
HPI - General Adult General Chief complaint: General Medical Stated complaint: private Time Seen by Provider: 08/14/23 21:54 Source: patient and family Mode of arrival: ambulatory Limitations: no limitations History of Present Illness HPI narrative: Patient's history of rectal cancer on chemotherapy with poor oral intake diabetic comes in for elevated blood sugar today since evening feeling unwell and weak tiredness severe nausea poor oral intake for last few days with ongoing rectal bleeding patient received 12 units of insulin 14:00 oncology department and again she took 14 units of Humalog and Tresiba for blood sugar higher than 400 at home no abdominal pain no fever or chills on arrival patient labs showed glucose of 505 creatinine of 1.58 patient has not received any steroids patient has stopped Eliquis few weeks ago for rectal bleeding Related Data Home Medications ?Medication ?Instructions ?Recorded ?Confirmed sertraline 100 mg tablet 100 mg PO DAILY PRN Anxiety 02/26/20 07/26/23 blood sugar diagnostic (FreeStyle #10 ea 06/23/21 07/26/23 Lite Strips) acetaminophen 500 mg tablet 1,000 mg PO DAILY PRN Pain 10/24/22 07/26/23 glipizide 10 mg tablet 10 mg PO BID 10/24/22 07/26/23 insulin degludec 100 unit/mL (3 12 unit subcut DAILY 10/24/22 07/26/23 mL) subcutaneous pen (Tresiba FlexTouch U-100 insulin) melatonin 1 mg tablet 1 mg PO BEDTIME 11/21/22 07/26/23 albuterol sulfate 90 mcg/actuation inhalation 06/20/23 07/26/23 aerosol inhaler (Ventolin HFA) lisinopril 40 mg tablet 40 mg PO DAILY 06/20/23 07/26/23 loratadine 10 mg tablet 10 mg PO DAILY 06/20/23 07/26/23 Previous Rx's ?Medication ?Instructions ?Recorded cholecalciferol (vitamin D3) 25 25 mcg PO DAILY #30 caps 04/04/21 mcg (1,000 unit) capsule ezetimibe 10 mg tablet 10 mg PO DAILY #30 tabs 06/23/21 lancets 28 gauge (FreeStyle #100 ea 06/23/21 Lancets) metformin 500 mg tablet,extended 1,000 mg (2 x 500 mg) PO BID #360 09/13/22 release 24 hr tabs rosuvastatin 40 mg tablet 40 mg PO DAILY #90 tabs 12/14/21 albuterol sulfate 2.5 mg/3 mL 2.5 mg (3 mL) inhalation QID PRN 01/08/22 (0.083 %) solution for nebulization shortness of breath or wheezing #75 mL diltiazem HCl 180 mg 180 mg PO DAILY 90 days #90 caps 06/20/22 capsule,extended release 24 hr (Cardizem CD) apixaban 5 mg tablet (Eliquis) 5 mg PO BID #60 tabs 01/30/23 capecitabine 500 mg tablet 1,500 mg (3 x 500 mg) PO BID #120 05/05/23 tabs dicyclomine 10 mg capsule 10 mg PO QID #120 caps 06/20/23 famotidine 20 mg tablet 20 mg PO BID #60 tabs 06/20/23 magnesium oxide 400 mg PO DAILY #30 tabs 08/15/23 Allergies Allergy/AdvReac Type Severity Reaction Status Date / Time ibuprofen [IBUPROFEN] Allergy Severe SICK TO Verified 08/14/23 21:08 MY STOMACH ciprofloxacin [From CIPRO] Allergy Intermediate SICK Verified 08/14/23 21:08 doxycycline Allergy Intermediate Dizziness Verified 08/14/23 21:08 levofloxacin [From LEVAQUIN] Allergy Intermediate SICK , Verified 08/14/23 21:08 nausea, dizziness x days flu vaccine Allergy Intermediate Swelling Uncoded 07/26/23 10:03 Review of Systems Review of Systems: Yes all other systems are reviewed and are negative PMFSH Past Medical History Medical History Restrictive lung disease Dyspnea on exertion Smoking greater than 30 pack years CKD (chronic kidney disease) stage 3, GFR 30-59 ml/min Babesiasis Paroxysmal atrial fibrillation CAD (coronary artery disease) Asthma Diabetes Bronchitis Obesity (BMI 30-39.9) Vitamin D deficiency Osteopenia Dyslipidemia Hypertension Diabetic 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 GERD (gastroesophageal reflux disease) Surgical History Hx of cataract surgery Hx of foot surgery Hx of colonoscopy History of esophagogastroduodenoscopy (EGD) Family History Family History Father Heart failure Diabetes mellitus Mother Cholangiocarcinoma Diabetes mellitus Family history of hypertension Family history of heart attack Brother Lung cancer Family/Other Breast cancer Sister Social History Social History Household Members: Family Housing: House Do you presently have visiting nurse or other home services: No Alcohol intake: current Alcohol intake frequency: a few times a month Alcohol type: beer Patient Tobacco Use Status: Former Tobacco user Tobacco use type: Cigarette Years Smoked: 45 Smoked in Last 30 Days: No e-Cigarette/Vaping Use: Never Used Use of substances other than those prescribed or required for medical reasons: No Advance Directives: Yes Advance Directives on File: Yes Advance Directives Date on File: 10/19/22 Do you have a plan to hurt others: No Plan service: No Current occupational status: unemployed Physical Exam ED Vital Signs: Vital Signs - 24 hr 08/14/23 21:01 08/14/23 22:56 08/15/23 01:06 Temperature 97.8 F 97.7 F 97.7 F Pulse Rate 89 79 80 Respiratory Rate 20 18 16 Blood Pressure 114/54 L 130/65 119/61 Pulse Oximetry 97 94 97 Oxygen Delivery Method Room Air Room Air Room Air BMI result Body Mass Index 32.4 Appearance: Alert. Oriented X3. No acute distress. Eyes: Pallor+ ENT: Pharynx normal. Oral Mucosa Dry Neck: Normal inspection. Neck supple. CVS: Normal heart rate and rhythm. Pulses normal. Respiratory: No respiratory distress. Equal air entry bilateral, no wheezing/rales/rhonchi Abdomen: Soft and nontender. Bowel sounds are present, no mass palpable, no CVA tenderness Skin: Skin warm and dry. Normal skin color. Normal skin turgor. Extremities: No lower extremity edema. No calf tenderness Neuro: Oriented X 3. No motor deficit. No sensory deficit.No cerebellar signs , cranial nerves II-XII intact Medications Administered Discontinued Medications Generic Name Dose Route Start Last Admin Trade Name Freq PRN Reason Stop Dose Admin Sodium Chloride 1,000 mls @ 999 mls/hr 08/14/23 21:58 08/14/23 22:52 Ns IV 08/14/23 22:58 999 mls/hr .Q1H1M ONE Administration Magnesium Sulfate 2 gm in 50 mls @ 25 mls/hr 08/14/23 21:58 08/14/23 22:52 Magnesium Sulfate/H2o IV 08/14/23 23:57 25 mls/hr ONCE ONE Administration Sodium Chloride 1,000 mls @ 999 mls/hr 08/14/23 23:42 08/15/23 00:33 Ns IV 08/15/23 00:42 999 mls/hr .Q1H1M ONE Administration Insulin Human Lispro 12 unit 08/14/23 21:58 08/14/23 22:52 Insulin Lispro 100 Unit/Ml 3 Ml Vial SUBCUT 08/14/23 21:59 12 unit ONCE ONE Administration Insulin Human Lispro 10 unit 08/14/23 23:42 08/15/23 00:32 Insulin Lispro 100 Unit/Ml 3 Ml Vial SUBCUT 08/14/23 23:43 10 unit ONCE ONE Administration Medical Decision Making Medical Decision Making [facility] Narrative: Patient with elevated blood sugar secondary to poor oral fluid intake improved after IV hydration insulin patient insulin which she will continue nonketotic feels much better after IV hydration and IV magnesium replacement Differential Diagnosis Differential Diagnoses: The differential diagnosis associated with the presentation includes Diabetic ketoacidosis/hyperglycemia/hypovolemia Lab Data [facility] Lab Attestation statement: I reviewed the patient's lab results. 08/14/23 21:33 08/14/23 21:33 Labs: Lab Results 08/14/23 08/14/23 08/14/23 Range/Units 21:33 22:37 23:40 WBC 2.6 L (4.8-10.8) X10*3/uL RBC 2.85 L D (4.20-5.50) X10*6/uL Hgb 9.4 L D (12.0-16.0) g/dl Hct 26.0 L D (37.0-47.0) % MCV 91.2 (80.0-98.0) fL MCH 33.0 (27.0-33.0) pg MCHC 36.2 H (31.0-35.0) g/dl RDW 11.7 (11.0-16.0) % Plt Count 123 L D (160-400) X10*3/uL MPV 8.9 L (9.4-12.3) fL Immature Gran % (Auto) 1.2 H (0.0-0.4) % Neut % (Auto) 94.5 H (45-73) % Lymph % (Auto) 3.1 L (20-40) % Broome % (Auto) 0.8 L (2-11) % Eos % (Auto) 0.4 (0-4) % Baso % (Auto) 0.0 (0-2) % Lymph # (Auto) 0.1 L (1.2-4.9) X10*3/uL [place] # (Auto) 0.0 L (0.1-1.2) X10*3/uL Eos # (Auto) 0.0 (0.0-0.4) X10*3/uL Baso # (Auto) 0.0 (0.0-0.2) X10*3/uL Abs Immat Gran (auto) 0.03 (0.00-0.03) X10*3/uL Absolute Neuts (auto) 2.4 (2.0-8.3) x10*3/uL Absolute Nucleated RBC 0.020 H (0.0-0.012) X10*3/uL Nucleated RBC % (auto) 0.8 H (0.0-0.2) /100WBC Smear Tech's Comments VERIFIED Sodium 136 (135-145) mmol/L Potassium 4.1 (3.3-5.1) mmol/L Chloride 103 (96-108) mmol/L Carbon Dioxide 18 L (22-29) mmol/L Anion Gap 19 (12-20) BUN 31 H (9-16) mg/dL Creatinine 1.58 H (0.5-1.4) mg/dL Estim Creat Clear Calc 37.6 Estimated GFR 33 POC Glucose 444 H* 403 H* (60-115) mg/dL Random Glucose 505 H* (60-115) mg/dL Calcium 8.1 L D (8.4-10.2) mg/dL Magnesium 1.0 L* (1.6-2.6) mg/dL Total Bilirubin 0.5 (0.0-1.0) mg/dL AST 23 (5-31) U/L ALT 28 (0-31) U/L Alkaline Phosphatase 54 (39-117) U/L Troponin I High Sens < 2.7 (<3.5-17.0) ng/L Total Protein 6.2 L (6.5-8.0) g/dL Albumin 3.4 L (3.5-5.0) g/dL Beta-Hydroxybutyrate 0.18 (0.02-0.27) mmol/L Influenza Type A (PCR) NEGATIVE (Negative) Influenza Type B (PCR) NEGATIVE (Negative) RSV RNA Qual (PCR) NEGATIVE (Negative) SARS-CoV-2 RNA (RT-PCR) NEGATIVE (Negative) 08/15/23 Range/Units 01:28 WBC (4.8-10.8) X10*3/uL RBC (4.20-5.50) X10*6/uL Hgb (12.0-16.0) g/dl Hct (37.0-47.0) % MCV (80.0-98.0) fL MCH (27.0-33.0) pg MCHC (31.0-35.0) g/dl RDW (11.0-16.0) % Plt Count (160-400) X10*3/uL MPV (9.4-12.3) fL Immature Gran % (Auto) (0.0-0.4) % Neut % (Auto) (45-73) % Lymph % (Auto) (20-40) % Broome % (Auto) (2-11) % Eos % (Auto) (0-4) % Baso % (Auto) (0-2) % Lymph # (Auto) (1.2-4.9) X10*3/uL [place]ome # (Auto) (0.1-1.2) X10*3/uL Eos # (Auto) (0.0-0.4) X10*3/uL Baso # (Auto) (0.0-0.2) X10*3/uL Abs Immat Gran (auto) (0.00-0.03) X10*3/uL Absolute Neuts (auto) (2.0-8.3) x10*3/uL Absolute Nucleated RBC (0.0-0.012) X10*3/uL Nucleated RBC % (auto) (0.0-0.2) /100WBC Smear Tech's Comments Sodium (135-145) mmol/L Potassium (3.3-5.1) mmol/L Chloride (96-108) mmol/L Carbon Dioxide (22-29) mmol/L Anion Gap (12-20) BUN (9-16) mg/dL Creatinine (0.5-1.4) mg/dL Estim Creat Clear Calc Estimated GFR POC Glucose 330 H (60-115) mg/dL Random Glucose (60-115) mg/dL Calcium (8.4-10.2) mg/dL Magnesium (1.6-2.6) mg/dL Total Bilirubin (0.0-1.0) mg/dL AST (5-31) U/L ALT (0-31) U/L Alkaline Phosphatase (39-117) U/L Troponin I High Sens (<3.5-17.0) ng/L Total Protein (6.5-8.0) g/dL Albumin (3.5-5.0) g/dL Beta-Hydroxybutyrate (0.02-0.27) mmol/L Influenza Type A (PCR) (Negative) Influenza Type B (PCR) (Negative) RSV RNA Qual (PCR) (Negative) SARS-CoV-2 RNA (RT-PCR) (Negative) Independent Interpretation I performed an independent interpretation of an: EKG Interpretation: Sinus rhythm with first-degree AV block no acute ST T wave changes no acute ischemia Discharge Plan Discharge Clinical Impression: Diabetes mellitus with hyperglycemia, Hypomagnesemia Patient Disposition: Home, Self-Care Instructions: Hypomagnesemia (ED), Diabetic Hyperglycemia (ED) Additional Instructions: Drink plenty of fluids Continue insulin for blood sugar as advised Have food containing extra magnesium Take magnesium tablet daily Follow-up with PCP Hold Eliquis for increased rectal bleeding Prescriptions: New magnesium oxide 400 mg magnesium tablet 400 mg PO DAILY Qty: 30 0RF No Action cholecalciferol (vitamin D3) 25 mcg (1,000 unit) capsule 25 mcg PO DAILY Qty: 30 11RF metformin 500 mg tablet extended release 24 hr 1,000 mg PO BID Qty: 360 1RF Hold Instructions: Resume on 10/28/22. rosuvastatin 40 mg tablet 40 mg PO DAILY Qty: 90 1RF diltiazem HCl [Cardizem CD] 180 mg capsule,extended release 24hr 180 mg PO DAILY 90 Days Qty: 90 3RF Eliquis 5 mg tablet 5 mg PO BID Qty: 60 6RF Hold Instructions: Resume on 02/18/23. resume Eliquis on 02/18/23 albuterol sulfate 2.5 mg /3 mL (0.083 %) solution for nebulization 2.5 mg inhalation QID PRN (Reason: shortness of breath or wheezing) Qty: 75 0RF capecitabine 500 mg Tablet 1,500 mg PO BID Qty: 120 2RF Rx Instructions: Take 1500 mg twice a day days 1-5/week, on days of radiation for 8 weeks. must administer with water 30 minutes after a meal glipizide 10 mg tablet 10 mg PO BID acetaminophen 500 mg Tablet 1,000 mg PO DAILY PRN (Reason: Pain) insulin degludec [Tresiba FlexTouch U-100] 100 unit/mL (3 mL) insulin pen 12 unit subcut DAILY (DME) FreeStyle Lite Strips Strip See Rx Instructions Not Applicable DAILY Qty: 10 Rx Instructions: As directed (DME) lancets [FreeStyle Lancets] 28 gauge misc See Rx Instructions .Route Qty: 100 3RF Rx Instructions: As directed 1x/daily ezetimibe 10 mg tablet 10 mg PO DAILY Qty: 30 11RF sertraline 100 mg tablet 100 mg PO DAILY PRN (Reason: Anxiety) melatonin 1 mg tablet 1 mg PO BEDTIME albuterol sulfate [Ventolin HFA] 90 mcg/actuation HFA aerosol inhaler inhalation lisinopril 40 mg tablet 40 mg PO DAILY loratadine 10 mg tablet 10 mg PO DAILY famotidine 20 mg tablet 20 mg PO BID Qty: 60 6RF dicyclomine 10 mg capsule 10 mg PO QID Qty: 120 3RF Print Language: Prydeinig
[2023-08-14 22:45] LABS: Glucose, Whole Blood 444 mg/dL (60-115)
[2023-08-14] MEDS: Magnesium Sulfate/H2O 2 GM/50 ML PIGGYBACK IV (22:52)
[2023-08-14] MEDS: 0.9 % Sodium Chloride 1,000 ML 999 ML IV (22:52)
[2023-08-14] MEDS: Insulin Lispro 100 UNIT/ML 3 ML VIAL 12 UNIT SUBCUT (22:52)
[2023-08-14 22:56] VITALS: BP 130/65; PULSE 79; RESP 18; TEMP 36.5; O2SAT 94
[2023-08-14 23:46] LABS: Glucose, Whole Blood 403 mg/dL (60-115)
[2023-08-15] MEDS: Insulin Lispro 100 UNIT/ML 3 ML VIAL 10 UNIT SUBCUT (00:32)
[2023-08-15] MEDS: 0.9 % Sodium Chloride 1,000 ML 999 ML IV (00:33)
[2023-08-15 01:06] VITALS: BP 119/61; PULSE 80; RESP 16; TEMP 36.5; O2SAT 97
[2023-08-15 01:33] LABS: Glucose, Whole Blood 330 mg/dL (60-115)
[2023-08-15 02:40] VITALS: BP 101/38; PULSE 86; RESP 18; TEMP 36.4; O2SAT 96
[2023-08-15 03:10] LABS: Glucose, Whole Blood 314 mg/dL (60-115)
[2023-08-15 05:59] LABS: Estimated Average Glucose 266 mg/dL; Hemoglobin A1c % 10.9 % (<6.0)
== END 2023-08-15 02:41 | disposition home or self-care (01) ==
PROVIDERS: Emergency Provider Internal Medicine; PCP Nurse Practitioner Primary Care
DX: E11.65 Type 2 diabetes mellitus with hyperglycemia (principal); E83.42 Hypomagnesemia; R11.0 Nausea; Z79.4 Long term (current) use of insulin; Z79.899 Other long term (current) drug therapy; Z87.891 Personal history of nicotine dependence; Z03.818 Encounter for observation for suspected exposure to other biological agents ruled out
CPT/HCPCS: 0241U; 36415; 80053; 82010; 82947; 83036; 83735; 84484; 85025; 93005; 96374; 99285; J3475

== ENCOUNTER → 2023-08-14 21:25 | Outpatient (BNV) | payer OTHER, SELFPAY | PROVIDERS: Emergency Provider Internal Medicine; PCP Nurse Practitioner Primary Care; Visit Provider Internal Medicine Cardiovascular Disease | DX: I44.0 Atrioventricular block, first degree (principal) | CPT/HCPCS: 93010 ==

== ENCOUNTER 2023-09-19 06:54 | Emergency (ER) | payer OTHER, SELFPAY ==
--- NOTE | ~2023-09-19 | XR_ITS ---
EXAMINATION: XR CHEST CLINICAL INFORMATION: Shortness of breath cough COMPARISON: Chest radiograph from 05/24/2023 TECHNIQUE: 2 views of the chest were obtained. FINDINGS: Slight bronchial thickening which can be seen in setting of infectious/inflammatory etiology. No pneumothorax. Trachea is midline. Cardiac mediastinal silhouette is not enlarged. No large pleural effusion. Osseous structures are intact. Soft tissues are unremarkable. XR/XR chest 2V IMPRESSION: Slight bronchial thickening which can be seen in setting of infectious/inflammatory etiology.
[2023-09-19 07:09] VITALS: BP 120/50; PULSE 77; RESP 18; TEMP 36.8; O2SAT 99; BMI 33.7
--- NOTE | 2023-09-19 07:27 | ED_ITS ---
HPI - General Adult General Chief complaint: Upper Respiratory Symptoms Stated complaint: sob, coughing Time Seen by Provider: 09/19/23 07:21 Source: patient Mode of arrival: ambulatory Limitations: no limitations History of Present Illness ED Provider: JUMA NICHOLSON PA-C HPI narrative: 63 year old female with pmhx significant for dyslipidemia, CAD, paroxysmal afib, previous tobacco smoker, GERD, T2DM with neruopathy, CKD presents to the ED today for evaluation of headache and cough x5 days. Reports associated chills. Cough is nonproductive of sputum. She has not been taking any OTC medications at home for this. Denies orthopnea. Denies fever, sore throat, shortness of breath, chest pain, hemoptysis, palpitations, nausea or vomiting. Denies recent travel or long car rides. Related Data Home Medications ?Medication ?Instructions ?Recorded ?Confirmed sertraline 100 mg tablet 100 mg PO DAILY PRN Anxiety 02/26/20 07/26/23 blood sugar diagnostic (FreeStyle #10 ea 06/23/21 07/26/23 Lite Strips) acetaminophen 500 mg tablet 1,000 mg PO DAILY PRN Pain 10/24/22 07/26/23 glipizide 10 mg tablet 10 mg PO BID 10/24/22 07/26/23 insulin degludec 100 unit/mL (3 12 unit subcut DAILY 10/24/22 07/26/23 mL) subcutaneous pen (Tresiba FlexTouch U-100 insulin) melatonin 1 mg tablet 1 mg PO BEDTIME 11/21/22 07/26/23 albuterol sulfate 90 mcg/actuation inhalation 06/20/23 07/26/23 aerosol inhaler (Ventolin HFA) lisinopril 40 mg tablet 40 mg PO DAILY 06/20/23 07/26/23 loratadine 10 mg tablet 10 mg PO DAILY 06/20/23 07/26/23 Previous Rx's ?Medication ?Instructions ?Recorded cholecalciferol (vitamin D3) 25 25 mcg PO DAILY #30 caps 04/04/21 mcg (1,000 unit) capsule ezetimibe 10 mg tablet 10 mg PO DAILY #30 tabs 06/23/21 lancets 28 gauge (FreeStyle #100 ea 06/23/21 Lancets) metformin 500 mg tablet,extended 1,000 mg (2 x 500 mg) PO BID #360 12/14/21 release 24 hr tabs rosuvastatin 40 mg tablet 40 mg PO DAILY #90 tabs 12/14/21 albuterol sulfate 2.5 mg/3 mL 2.5 mg (3 mL) inhalation QID PRN 01/08/22 (0.083 %) solution for nebulization shortness of breath or wheezing #75 mL apixaban 5 mg tablet (Eliquis) 5 mg PO BID #60 tabs 01/30/23 capecitabine 500 mg tablet 1,500 mg (3 x 500 mg) PO BID #120 05/05/23 tabs famotidine 20 mg tablet 20 mg PO BID #60 tabs 06/20/23 magnesium oxide 400 mg PO DAILY #30 tabs 08/15/23 diltiazem HCl 180 mg 180 mg PO DAILY #90 caps 08/22/23 capsule,extended release 24 hr dicyclomine 10 mg capsule 10 mg PO QID #360 caps 09/15/23 azithromycin 250 mg tablet See Rx Instructions PO .COMPLEX #6 09/19/23 tabs benzonatate 100 mg capsule 100 mg PO BID PRN cough #20 caps 09/19/23 prednisone 20 mg tablet 40 mg (2 x 20 mg) PO DAILY #4 tabs 09/19/23 Allergies Allergy/AdvReac Type Severity Reaction Status Date / Time ibuprofen [IBUPROFEN] Allergy Severe SICK TO Verified 09/19/23 07:11 MY STOMACH ciprofloxacin [From CIPRO] Allergy Intermediate SICK Verified 09/19/23 07:11 doxycycline Allergy Intermediate Dizziness Verified 09/19/23 07:11 levofloxacin [From LEVAQUIN] Allergy Intermediate SICK , Verified 09/19/23 07:11 nausea, dizziness x days flu vaccine Allergy Intermediate Swelling Uncoded 07/26/23 10:03 Review of Systems Review of Systems: Constitutional: No fever, chills, fatigue, night sweats, weight changes ENT/Mouth: No ear pain, hearing loss, nasal congestion, sinus pain, rhinorrhea Eyes: No eye pain, swelling, redness, vision changes, discharge Cardio: No chest pain, palpitations, CHICAS, orthopnea, peripheral edema Pulm: No SOB,sputum, wheezing, dyspnea, hemoptysis, +cough GI: No nausea, vomiting, hematemesis, abdominal pain, diarrhea, constipation, hematochezia, melena : No irregular bleeding, dysuria, frequency, urgency, hesitancy, hematuria, flank pain MSK: No back pain, neck pain, joint pain, myalgias Skin: No lesions, rashes Neuro: No weakness, numbness, paresthesias, LOC, dizziness, headache All other systems reviewed and are negative. [facility] Past Medical History Attestation statement: The following information was validated with the patient. Source: old records reviewed and nursing notes reviewed Medical History Restrictive lung disease Dyspnea on exertion Smoking greater than 30 pack years CKD (chronic kidney disease) stage 3, GFR 30-59 ml/min Babesiasis Paroxysmal atrial fibrillation CAD (coronary artery disease) Asthma Diabetes Bronchitis Obesity (BMI 30-39.9) Vitamin D deficiency Osteopenia Dyslipidemia Hypertension Diabetic 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 GERD (gastroesophageal reflux disease) Surgical History Hx of cataract surgery Hx of foot surgery Hx of colonoscopy History of esophagogastroduodenoscopy (EGD) Family History Family History Father Heart failure Diabetes mellitus Mother Cholangiocarcinoma Diabetes mellitus Family history of hypertension Family history of heart attack Brother Lung cancer Family/Other Breast cancer Sister Social History Social History Household Members: Family Housing: House Do you presently have visiting nurse or other home services: No Alcohol intake: current Alcohol intake frequency: a few times a month Alcohol type: beer Patient Tobacco Use Status: Former Tobacco user Tobacco use type: Cigarette Years Smoked: 45 e-Cigarette/Vaping Use: Never Used Advance Directives: Yes Advance Directives on File: Yes Advance Directives Date on File: 10/19/22 service: No Current occupational status: unemployed Physical Exam ED Vital Signs: Vital Signs - 24 hr 09/19/23 07:09 Temperature 98.2 F Pulse Rate 77 Respiratory Rate 18 Blood Pressure 120/50 L Pulse Oximetry 99 Oxygen Delivery Method Room Air BMI result Body Mass Index 33.7 Vital signs stable, afebrile Const General: cooperative, healthy appearing, comfortable, no acute distress, alert and awake Orientation/consciousness: patient oriented x3 Limitations: no limitations HENMT Other: + posterior oropharynx erythematous, no edema, uvula is midline, no tonsilar exudates or peritonsillar masses, controlling secretions and speaking in complete sentences. Head: Yes normal to inspection, Yes normocephalic and Yes atraumatic Ears: hearing grossly normal bilaterally, external ears normal, TM's normal bilaterally, EAC's normal, mastoids normal and no periauricular adenopathy General nose exam: Normal external nose present and No nasal discharge present Face and sinus: Yes normal facial exam and Yes sinuses nontender Eyes General: appearance normal, both eyes and all related structures Pupils: Equal, round and reactive pupils present Neck Other: + no cervical, submandibular or submental LAD. Neck: Yes normal visual inspection and Yes full ROM Resp Effort & Inspection: normal respiratory effort, able to speak in complete sentences and Actively coughing Auscultation: clear to auscultation bilaterally Cardio Other: no peripheral edema Jugular venous distension: no JVD Rate: regular rate Rhythm: regular rhythm GI Inspection: Yes normal to inspection Palpation (GI): Soft to palpation and nontender Skin General skin exam: no rashes or lesions noted Neuro General: patient oriented x3, gait normal and moves all extremities Cranial nerves: Yes Equal, round and reactive pupils present Extrem General: Yes normal to inspection Course Course Course Narrative: 0915-- Patient has tested negative for covid, flu, and rsv. CXR showing bronchial wall thickening concerning for bronchitis. on re-evaluation, patient reports improvement in symptoms with decadron and tessalon. Will send zpak, prednisone, and tessalon. she has a follow up appointment with his outpatient provider tomorrow. Patient has remained stable throughout ED visit today. Discussed worrisome signs and symptoms and when to return to the ED. All questions answered at this time. Patient is agreeable with disposition and stable for discharge. Medications Administered Discontinued Medications Generic Name Dose Route Start Last Admin Trade Name Emersonq PRN Reason Stop Dose Admin Benzonatate 200 mg 09/19/23 07:57 09/19/23 08:19 Benzonatate 100 Mg Capsule PO 09/19/23 07:58 200 mg ONCE ONE Administration Dexamethasone Sodium Phosphate 10 mg 09/19/23 07:57 09/19/23 08:19 Dexamethasone Sod Phosphate 10 Mg/Ml Vial IVPUSH 09/19/23 07:58 10 mg ONCE ONE Administration Medical Decision Making Medical Decision Making [facility] Narrative: 63 year old female with pmhx significant for dyslipidemia, CAD, paroxysmal afib, previous tobacco smoker, GERD, T2DM with neruopathy, CKD presents to the ED today for evaluation of headache and cough x5 days. VSS. She is nontoxic appearing and in NAD. On exam, lungs are CTA b/l. Actively coughing on exam, no sputum production noted. Skin w/d/i. no rashes. no calf tenderness. no jvd or peripheral edema noted. Differential diagnosis includes viral syndrome, bronchitis, pneumonia, smoker's cough. Unlikely ACS, arrhythmia, CHF, PE, pleural effusion. Plan for viral serology CXR, steroid, and re-evaluation. Differential Diagnosis Differential Diagnoses: The differential diagnosis associated with the presentation includes as above. Admission/Observation Not indicated Lab Data [facility] Lab Attestation statement: I reviewed the patient's lab results. as above Labs: Lab Results 09/19/23 Range/Units 07:16 Influenza Type A (PCR) NEGATIVE (Negative) Influenza Type B (PCR) NEGATIVE (Negative) RSV RNA Qual (PCR) NEGATIVE (Negative) SARS-CoV-2 RNA (RT-PCR) NEGATIVE (Negative) Independent Interpretation I performed an independent interpretation of an: Plain X-Ray Interpretation: CXR with bronchial wall thickening, agree wt radiologist's interpretation. Radiology Impression Discussion of test interpretation with radiology: I have reviewed the radiolo gist's reading. Radiologist Impression: EXAMINATION: XR CHEST CLINICAL INFORMATION: Shortness of breath cough COMPARISON: Chest radiograph from 05/24/2023 TECHNIQUE: 2 views of the chest were obtained. FINDINGS: Slight bronchial thickening which can be seen in setting of infectious/inflammatory etiology. No pneumothorax. Trachea is midline. Cardiac mediastinal silhouette is not enlarged. No large pleural effusion. Osseous structures are intact. Soft tissues are unremarkable. XR/XR chest 2V IMPRESSION: Slight bronchial thickening which can be seen in setting of infectious/inflammatory etiology. External Record Review External record reviewed: Inpatient record Prescription Management I considered prescription management with: Antibiotic (zpak) and Other (prednisone, tessalon perles) Social Determinants Patient?s care significantly limited by Social Determinants of Health including: Other Social Determinant of Health Critical Care Time Critical Care Time Critical Care Time: No Discharge Plan Discharge Clinical Impression: Bronchitis Patient Disposition: Home, Self-Care Instructions: Acute Bronchitis (ED) Additional Instructions: You tested negative for COVID, flu, RSV. Your chest x-ray shows: XR chest 2V IMPRESSION: Slight bronchial thickening which can be seen in setting of infectious/inflammatory etiology. Consistent with bronchitis. Azithromycin as an antibiotic that has been sent to your pharmacy. Take this over the next 5 days as prescribed. Do not stop taking this early or skip any doses as this may cause infection to worsen. Prednisone as a steroid that has been sent to your pharmacy. Take this as prescribed for the next 4 days. You were given a dose of steroid in the ED today so please begin this medication tomorrow. Tessalon Perles have been sent to your pharmacy for you to take as needed for cough. Please follow up with your outpatient providers as scheduled. Return with new or worsening symptoms. In the case of an emergency call 911. Prescriptions: New benzonatate 100 mg capsule 100 mg PO BID PRN (Reason: cough) Qty: 20 0RF prednisone 20 mg tablet 40 mg PO DAILY Qty: 4 0RF azithromycin 250 mg tablet See Rx Instructions .ROUTE .COMPLEX Qty: 6 0RF Rx Instructions: For 250 mg dose pack: take 500 mg today (day 1), then 250 mg for 4 days (days 2-5) No Action cholecalciferol (vitamin D3) 25 mcg (1,000 unit) capsule 25 mcg PO DAILY Qty: 30 11RF metformin 500 mg tablet extended release 24 hr 1,000 mg PO BID Qty: 360 1RF Hold Instructions: Resume on 10/28/22. rosuvastatin 40 mg tablet 40 mg PO DAILY Qty: 90 1RF Eliquis 5 mg tablet 5 mg PO BID Qty: 60 6RF Hold Instructions: Resume on 02/18/23. resume Eliquis on 02/18/23 diltiazem HCl 180 mg capsule,extended release 24hr 180 mg PO DAILY Qty: 90 1RF dicyclomine 10 mg capsule 10 mg PO QID Qty: 360 1RF albuterol sulfate 2.5 mg /3 mL (0.083 %) solution for nebulization 2.5 mg inhalation QID PRN (Reason: shortness of breath or wheezing) Qty: 75 0RF capecitabine 500 mg Tablet 1,500 mg PO BID Qty: 120 2RF Rx Instructions: Take 1500 mg twice a day days 1-5/week, on days of radiation for 8 weeks. must administer with water 30 minutes after a meal magnesium oxide 400 mg magnesium tablet 400 mg PO DAILY Qty: 30 0RF glipizide 10 mg tablet 10 mg PO BID acetaminophen 500 mg Tablet 1,000 mg PO DAILY PRN (Reason: Pain) insulin degludec [Tresiba FlexTouch U-100] 100 unit/mL (3 mL) insulin pen 12 unit subcut DAILY (DME) FreeStyle Lite Strips Strip See Rx Instructions Not Applicable DAILY Qty: 10 Rx Instructions: As directed (DME) lancets [FreeStyle Lancets] 28 gauge misc See Rx Instructions .Route Qty: 100 3RF Rx Instructions: As directed 1x/daily ezetimibe 10 mg tablet 10 mg PO DAILY Qty: 30 11RF sertraline 100 mg tablet 100 mg PO DAILY PRN (Reason: Anxiety) melatonin 1 mg tablet 1 mg PO BEDTIME albuterol sulfate [Ventolin HFA] 90 mcg/actuation HFA aerosol inhaler inhalation lisinopril 40 mg tablet 40 mg PO DAILY loratadine 10 mg tablet 10 mg PO DAILY famotidine 20 mg tablet 20 mg PO BID Qty: 60 6RF Referrals: Areli Elam NP [Primary Care Provider] - Interventions: ED Discharge Assessment Last Done: 09/19/23 09:24 Discharge Date/Time: 09/19/23 09:24 Print Language: Mauritian
--- OUTSIDE RECORDS SUMMARY | 2023-09-19 07:42 | XMS_ITS | Continuity of Care Document ---
Author Organization [facility] Address [address] [place] [address]- Care Team Providers Care Community Development Coordinator Name Role Phone Not on Staff, PCP Primary Care Physician Unavail able Encounter [facility] Date(s): 08/09/23 - 09/08/23 [facility] [address] [place] [id number] Allergies, Adverse Reactions, Alerts Substance Reaction Severity Status ciprofloxacin 1 Active doxycycline Active Motrin 2 Active levoFLOXacin 3 Active Influenza Virus Vaccine 4, 5 Active 1vomit, dizziness, itchy 2vomit dizziness, itchy 3vomit, dizziness 4from ear to fingers 5redness and swelling to side of inection Medications albuterol 0.083% inhalation solution 3 mL = 2.5 mg, Neb, Every 6 hours, PRN as needed for wheezing, # 90 mL, 0 Refills, Maintenance, 04/15/21 8:48:00 EST, Solution, Partial fill upon patient request if the prescription is for a scheduleII opioid drug. Start Date: 04/15/21 Status: Ordered capecitabine 500 mg oral tablet 3 tablet = 1,500 mg, By Mouth, 2 times a day, 0 Refills, Maintenance, 08/17/23 21:42:00 EDT, Tablet, Partial fill upon patient request if the prescription is for a schedule II opioid drug. Start Date: 08/17/23 Status: Ordered DilTIAZem (Eqv-Cardizem CD) 180 mg/24 hours oral capsule, extended release 1 capsule = 180 mg, By Mouth, Daily, 0 Refills, Maintenance, 08/17/23 21:40:00 EDT, Partial fill upon patient request if the prescription is for a schedule II opioid drug. Start Date: 08/17/23 Status: Ordered ezetimibe 10 mg oral tablet 1 tablet = 10 mg, By Mouth, Daily, # 30 tablet, 0 Refills, Maintenance, 08/17/23 21:39:00 EDT, Tablet, Partial fill upon patient request if the prescription is for a schedule II opioid drug. Start Date: 08/17/23 Status: Ordered famotidine 20 mg oral tablet 20 mg, 1, tablet, By Mouth, 2 times a day, # 180 tablet, Refills 0, Maintenance, 08/17/23 21:40:00 EDT, Partial fill upon patient request if the prescription is for a schedule II opioid drug. Start Date: 08/17/23 Status: Ordered glipiZIDE 10 mg oral tablet 1 tablet = 10 mg, By Mouth, 2 times a day, # 30 tablet, 0 Refills, Maintenance, 08/17/23 21:39:00 EDT, Tablet, Partial fill upon patient request if the prescription is for a schedule II opioid drug. Start Date: 08/17/23 Status: Ordered lisinopril 40 mg oral tablet [...] opioid drug. Start Date: 04/15/21 Status: Ordered ondansetron 4 mg oral tablet, disintegrating 1 tablet = 4 mg, By Mouth, Every 8 hours, PRN as needed for nausea/vomiting, # 30 tablet, 0 Refills, Maintenance, 07/13/23 11:43:00 EDT, DIS Tablet, [facility]/pharmacy #[id number], Partial fill upon patient request if the prescription is for a schedule II opioid... Start Date: 07/13/23 Status: Ordered oxyCODONE 5 mg oral tablet 0.5 - 1 tablet, By Mouth, Every 6 hours, PRN, # 30 tablet, Refills 0, Tot. Refills 0, Maintenance, as needed for pain, 08/09/23 16:27:00 EDT, Route to Pharmacy Electronically, [facility]/pharmacy #[id number], Partial fill upon patient request if the prescription i... Start Date: 08/09/23 Status: Ordered prochlorperazine 5 mg oral tablet 1 tablet = 5 mg, By Mouth, Every 6 hours, PRN Nausea & Vomiting, # 30 tablet, 0 Refills, Maintenance, 07/13/23 11:43:00 EDT, Tablet, [facility]/pharmacy #[id number], Partial fill upon patient request if the prescription is for a schedule II opioid drug., 157.9, cm... Start Date: 07/13/23 Status: Ordered rosuvastatin 40 mg oral tablet [...] opioid drug. Start Date: 04/15/21 Status: Ordered Tresiba FlexTouch 100 units/mL subcutaneous solution = 12 units, Subcutaneous Injection, Daily at bedtime, 0 Refills, Maintenance, 08/17/23 21:40:00 EDT, Partial fill upon patient request if the prescription is for a schedule II opioid drug. Start Date: 08/17/23 Status: Ordered Vitamin D3 1000 intl units oral tablet 1 tablet = 25 mcg, By Mouth, Daily, # 30 tablet, 0 Refills, Maintenance, 04/15/21 8:45:00 EST, Tablet, Partial fill upon patient request if the prescription is for a schedule II opioid drug. Start Date: 04/15/21 Status: Ordered Problem List Condition Confirmation Course Effective Dates Status Health St atus Informant Anxiety Confirmed 08/18/23 Active HTN (hypertension), benign Confirmed 08/18/23 Active Chronic kidney disease Confirmed 08/18/23 Active Renal cyst Confirmed 08/18/23 Active Depression Confirmed 08/18/23 Active Chronic GERD Confirmed 08/18/23 Active Anal cancer Confirmed 08/17/23 Active Obese class I Confirmed Active Cancer related pain Confirmed 08/17/23 Active PAF (paroxysmal atrial fibrillation) Confirmed 08/18/23 Active Type 2 diabetes mellitus without complication, with long-term current use of insulin Confirmed 08/18/23 Active Patient Care team information Care Team Personnel Name: Ezequiel FAJARDO, Kate Benoit Position: [facility] RN Member Role: Primary Care Nurse Name: Laura Cardozo RN Position: [facility] RN Member Role: Primary Care Nurse Name: Patricia Upton RN Position: [facility] RN Member Role: Primary Care Nurse Name: Hanny Muniz RN Position: [facility] Onco RN Member Role: Primary Care Nurse Name: Not on Staff, PCP Position: [facility] Physician (General Medicine) Member Role: PCP Care Team Related Persons Name: SUE NITO Address: [address] [id number]
--- OUTSIDE RECORDS SUMMARY | 2023-09-19 07:42 | XMS_ITS | Continuity of Care Document ---
Author Organization [facility] Address [address] [place] [address] [address] [place] [address]- Care Team Providers Care Bed Control Specialist Name Role Phone Papa EDUCATION REPORTER, Areli Boland Primary Care Physician Encounter [facility] Date(s): 08/17/23 - 09/16/[address] [place] [address]- Allergies, Adverse Reactions, Alerts Substance Reaction Severity Status ciprofloxacin 1 Active doxycycline Active Motrin 2 Active Influenza Virus Vaccine 3, 4 Active OxyCODONE Hydrochloride pruritis of skin Persistent Mo derate Active levoFLOXacin 5 Active 1vomit, dizziness, itchy 2vomit dizziness, itchy 3from ear to fingers 4redness and swelling to side of inection 5vomit, dizziness Medications acetaminophen-HYDROcodone 325 mg-5 mg oral tablet 1 tablet, By Mouth, Every 6 hours, PRN for pain, Discontinue oxycodone use, # 30 tablet, 0 Refills,Maintenance, 09/13/23 15:04:00 EDT, Tablet, [facility]/pharmacy #[id number], Did not tolerate oxycodone due to skin pruritis. Partial fill upon patient request if t... Start Date: 09/13/23 Status: Ordered albuterol 0.083% inhalation solution 3 mL = [...] opioid drug. Start Date: 04/15/21 Status: Ordered Nutritional Supplements See Instructions, # 90 each, Refills 5, Tot. Refills 5, Maintenance, Begin 1 carton Boost Glucose Control by mouth 3 x daily. Height: 160 cm, weight: 83.1 kg, 09/14/23 10:53:00 EDT, Supply Start Date: 09/14/23 Status: Ordered ondansetron 4 mg oral tablet, disintegrating 1 tablet = 4 mg, By Mouth, Every 8 hours, PRN as needed for nausea/vomiting, # 30 tablet, 0 Refills, Maintenance, 07/13/23 11:43:00 EDT, DIS Tablet, [facility]/pharmacy #[id number], Partial fill upon patient request if the prescription is for a schedule II opioid... Start Date: 07/13/23 Status: Ordered prochlorperazine 5 mg oral tablet 1 tablet = 5 mg, By Mouth, Every 6 hours, PRN Nausea & Vomiting, # 30 tablet, 0 Refills, Maintenance, 07/13/23 11:43:00 EDT, Tablet, [facility]/pharmacy #[id number], Partial fill upon patient request [...] current use of insulin Confirmed 08/18/23 Active Social History Social History Type Response Smoking Status Former smoker, quit more than 30 days ago entered on: 09/11/23 Sex Patient Care team information Care Team Personnel Name: Kate Nieves RN Position: [facility] RN Member Role: Primary Care Nurse Name: Laura Cardozo RN Position: [facility] RN Member Role: Primary Care Nurse Name: Patricia Upton RN Position: [facility] RN Member Role: Primary Care Nurse Name: Hanny Muniz RN Position: [facility] Onco RN Member Role: Primary Care Nurse Name: Areli Elam NP Position: [facility] Outreach Member Role: PCP Address: Address: [address] [place] [id number]- Care Team Related Persons Name: NITO ROGERS Address: home [address] [place] [id number]
--- OUTSIDE RECORDS SUMMARY | 2023-09-19 07:42 | XMS_ITS | Continuity of Care Document ---
Author Organization [employer] ter Address [address] [place] [address]- Care Team Providers Care Splitter Tender Name Role Phone Papa LOGISTICS TECH, Areli Boland Primary Care Physician [phone] Encounter [facility] [place](s): 08/17/23 - 08/22/[address] [address]- Discharge Disposition: A-D/C Home Attending Physician: Naya Escamilla MD Admitting Physician: Markus MURILLO, Lj Daly Referring Physician: Not on Staff, Referring MD Allergies, Adverse Reactions, Alerts Substance Reaction Severity Status ciprofloxacin 1 Active doxycycline Active Motrin 2 Active levoFLOXacin 3 Active Influenza Virus Vaccine 4, 5 Active 1vomit, dizziness, itchy 2vomit dizziness, itchy 3vomit, dizziness 4from ear to fingers 5redness and swelling to side of inection Medications Acetaminophen Tablet 650 mg, Tablet, By Mouth, Every 4 hours, PRN for Pain , Mild, Temperature Greater than 100.5, Routine, 08/17/23 20:35:00 EDT Start Date: 08/17/23 Stop Date: 08/23/23 Status: Discontinued albuterol 0.083% inhalation solution 3 mL = [...] opioid drug. Start Date: 08/17/23 Status: Ordered Cardizem CD 180 mg/24 hours oral capsule, extended release 180 mg, CD Capsule, By Mouth, Hold for: SBP < 110, HR < 50, 08/22/23 9:00:00 EDT Start Date: 08/22/23 Stop Date: 08/22/23 Status: Completed DilTIAZem (Eqv-Cardizem CD) 180 mg/24 hours oral [...] drug. Start Date: 08/17/23 Status: Ordered lisinopril 20 mg oral tablet 40 mg, Tablet, By Mouth, Hold for: SBP < 110, 08/22/23 9:00:00 EDT Start Date: 08/22/23 Stop Date: 08/22/23 Status: Completed lisinopril 40 mg oral tablet 1 tablet [...] Refills, Maintenance, 07/13/23 11:43:00 EDT, DIS Tablet, [facility]/pharmacy #[id number], Partial fill upon patient request if the prescription is for a schedule II opioid... Start Date: 07/13/23 Status: Ordered oxyCODONE 5 mg oral tablet 0.5 - 1 tablet, By Mouth, Every 6 hours, PRN, # 30 tablet, Refills 0, Tot. Refills 0, Maintenance, as needed for pain, 08/09/23 16:27:00 EDT, Route to Pharmacy Electronically, [facility]/pharmacy #[id number], Partial fill upon patient request if the prescription i... Start Date: 08/09/23 Status: Ordered oxyCODONE 5 mg oral tablet 5 mg, Tablet, By Mouth, Every 6 hours, PRN for Pain , Moderate, Routine, 08/17/23 22:14:00 EDT Start Date: 08/17/23 Stop Date: 08/23/23 Status: Discontinued prochlorperazine 5 mg oral tablet 1 tablet = 5 mg, By Mouth, Every 6 hours, PRN Nausea & Vomiting, # 30 tablet, 0 Refills, Maintenance, 07/13/23 11:43:00 EDT, Tablet, [facility]/pharmacy #[id number], Partial fill upon patient request [...] current use of insulin Confirmed 08/18/23 Active Results Radiology Reports * Exam Date Time Procedure Performing Provider Status 08/17/23 7:[address] Abd/Pelvis W/ IV Contrast Only Jalb ert , Vera; Auth (Verified) Notes: (CT Abd/Pelvis W/ IV Contrast Only) Reason For Exam: vaginal pain, known rectal carcinoma, ? deep space infection;Other: RESULT: CT Abd/Pelvis W/ IV Contrast Only CT Abd/Pelvis W/ IV Contrast Only Refer to EMR; Hx of Present Illness: Pt coming from radiation center where pt had treatment today prior to arrival, has had treament in the past. Pt told staff chills since this morning. Pt admits tochronic nausea denies vomitting. Pt denies noting fevers. Pt c o vaginal discharge, denies a; Reason: Other:; vaginal pain, known rectal carcinoma, ? deep space infection; Clinical Question(s): Absces TECHNIQUE: Spiral CT through the abdomen and pelvis with IV contrast formatted in 3 planes. 100 cc of Omnipaque 300 was administered intravenously. This study was performed without oral contrast. Weight-based protocol using automatic tube modulation was used to optimize exposure parameters. COMPARISON: 08/10/2023 FINDINGS: Energy Scheduler View Findings, Lines and Tubes: None. Visualized Chest: Lung bases are clear. No pleural effusion. The heart is normal in size. No pericardial effusion. Diaphragm: Normal. Liver: Normal. Gallbladder: Absent consistent with prior cholecystectomy. Bile ducts: No biliary ductal dilation. Spleen: Normal. Pancreas: Normal. Adrenal glands: Normal. Kidneys and ureters: No hydronephrosis, stones, or suspicious masses. Simple appearing renal cysts are noted, requiring no dedicated follow up. Prominence of the mid right ureter, similar to prior study Bladder: Normal. Reproductive organs: Post cystectomy. No adnexal mass. Stomach, small bowel, and large bowel: There is soft tissue fullness in the region of the anus although accurate evaluation of the known anal mass is suboptimal on the CT images. No evidence of surrounding fat stranding or fluid collection in the ischiorectal fat. Mild colonic diverticulosis, most prominent in the sigmoid colon without evidence of acute diverticulitis. No small bowel obstruction. Stomach is within normal limits. Appendix: Not seen, but no evidence of appendicitis. Peritoneum and retroperitoneum: No ascites or pneumoperitoneum. No omental or mesenteric lesions. Lymph nodes: No enlarged lymph nodes. Stable 7 mm short axis right pelvic sidewall lymph node and a6 mm short axis right inguinal femoral lymph node Blood vessels: Mild vascular calcifications but no aneurysm. No evidence of venous thrombosis. Abdominal and pelvic wall: Unremarkable. Bones: No acute abnormality. IMPRESSION: No CT evidence of acute intra-abdominal or pelvic abnormality. Known malignancy in the anus is suboptimally visualized on the CT images. No evidence of fat stranding or fluid collection in bilateral perianal or ischiorectal fat. Mild colonic diverticulosis without evidence of acute diverticulitis. WSN: [id number] Ordering Physician: Sury Chan Dictated By: Deborah Deng MD Dictated Date/Time: 08/17/23 7:36 pm Reviewed By: Deborah Deng MD Signed By: Deborah Deng MD Signed Date/Time: 08/17/23 7:36 pm Transcribed By: YESENIA Transcribed Date/Time: 08/17/23 7:29 pm * Exam Date Time Procedure Performing Provider Status 08/17/23 7:02 PM Chest Portable Tisha Interiano; Auth (Verified) Notes: (Chest Portable) Reason For Exam: Shortness of Breath RESULT: Chest Portable Chest Portable Hx of Present Illness: Pt coming from radiation center where pt had treatment today prior to arrival, has had treament in the past. Pt told staff chills since this morning. Pt admits to chronic nausea denies vomitting. Pt denies noting fevers. Pt c o vaginal discharge, denies a; Reason: Shortness of Breath; Clinical Question(s): CHF COMPARISON: None. FINDINGS: LINES AND TUBES: None. LUNGS AND PLEURA: Clear lungs. Normal pulmonary vascularity. No pleural effusion. No pneumothorax. HEART, MEDIASTINUM AND TAYE: Heart is normal in size. Normal mediastinal and hilar contour. BONES AND SOFT TISSUES: No acute abnormality. IMPRESSION: No acute abnormality. WSN: [id number] Ordering Physician: Sury Chan Dictated By: Airam Brock MD, I Dictated Date/Time: 08/17/23 7:10 pm Reviewed By: Airam Brock MD, I Signed By: Airam Brock MD, I Signed Date/Time: 08/17/23 7:10 pm Transcribed By: YESENIA Transcribed Date/Time: 08/17/23 7:10 pm Vital Signs Most recent to oldest [Reference Range]: 1 2 3 Height 160 cm (08/22/23 6:09 AM) 160 cm (08/21/23 11:43 PM) 160 cm (08/21/23 8:00 PM) Weight 89.3 kg (08/18/23 1:22 AM) 89.3 kg (08/18/23 1:02 AM) 90.5 kg (08/17/23 6:23 PM) Oxygen Saturation [94-100 %] 95 % (08/22/23 6:09 AM) 92 % *L* (08/21/23 11:43 PM) 96 % (08/21/23 8:00 PM) Pulse Rate [55-90 bpm] 79 bpm (08/22/23 8:55 AM) 69 bpm (08/22/23 6:09 AM) 68 bpm (08/21/23 11:43 PM) Body Mass Index [18.5-24.99 kg/m2] 34.88 kg/m2 *>HHI* (08/18/23 1:22 AM) 35.35 kg/m2 *>HHI* (08/17/23 6:23 PM) 35.35 kg/m2 *>HHI* (08/17/23 4:38 PM) Blood Pressure [90-138/55-84 mm Hg] 125/57mm Hg (08/22/23 8:55 AM) 125/57mm Hg (08/22/23 8:55 AM) 120/47mm Hg (08/22/23 6:09 AM) Respiratory Rate [16-30 br/min] 18 br/min (08/22/23 3:40 PM) 18 br/min (08/22/23 10:39 AM) 18 br/min (08/22/23 10:39 AM) Temperature [96.8-100.4 DegF] 98.4 DegF (08/22/23 6:09 AM) 98.4 DegF (08/21/23 11:43 PM) 98.8 DegF (08/21/23 8:00 PM) Liters per Minute 0 L/min (08/22/23 6:09 AM) 0 L/min (08/21/23 11:43 PM) 0 L/min (08/21/23 8:00 PM) Mode of Delivery (Oxygen) Room air (08/22/23 6:09 AM) Room air (08/21/23 11:43 PM) Room air (08/21/23 8:00 PM) Blood pressure sites Arm, right (08/22/23 6:09 AM) Arm, right (08/21/23 11:43 PM) Arm, right (08/21/23 8:00 PM) Temperature Route Oral (08/22/23 6:09 AM) Oral (08/21/23 11:43 PM) Oral (08/21/23 8:00 PM) Dry Weight 89.3 kg (08/18/23 1:22 AM) 90.5 kg (08/17/23 6:23 PM) 90.5 kg (08/17/23 4:43 PM) Weight Obtained Via Bed scale (08/18/23 1:02 AM) Admission evaluation note * Ajay MURILLO, Kranthi: PERFORM, MODIFY, MODIFY Event Display: Admission Note Authored Date: Patient: ??TAMAR STUART ? Age:??63 Years?Sex:??Female?:??1960?? 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 ?? Patient is currently undergoing chemo and radiation with last chemotherapy being approximately 7to 8 days ago according to the patient.?? She reports that she has been having generalized weakness, chills, subjective fevers and intermittent bloody stools and also reports pain in the anal region.?? Denies any headaches, no changes in vision, no chest pain or shortness of breath, denies any abdominal pain, no nausea or vomiting.?? Reports having multiple episodes of diarrhea occasionally with blood.?? She is not on Eliquis anymore as it was discontinued approximately 3 to 4 weeks ago according to patient secondary to epistaxis. Review of Systems All systems are reviewed??and are negative except as noted above in the HPI. Objective Vital Signs?? Temperature: 98.3 DegF (08/17/23 20:14:00) Temperature Route: Oral (08/17/23 20:14:00) Pulse Rate: 70 bpm (08/17/23 20:14:00) Pulse Rate, Sittin bpm (08/17/23 15:45:00) Systolic Blood Pressure, Sittin mm Hg (08/17/23 15:45:00) Diastolic Blood Pressure, Sittin mm Hg (08/17/23 15:45:00) Pulse Rate, Standin bpm (08/17/23 15:45:00) Systolic Blood Pressure, Standin mm Hg (08/17/23 15:45:00) Diastolic Blood Pressure, Standin mm Hg (08/17/23 15:45:00) Respiratory Rate: 22 br/min (08/17/23 20:14:00) Systolic Blood Pressure: 130 mm Hg (08/17/23 20:14:00) Diastolic Blood Pressure: 61 mm Hg (08/17/23 20:14:00) Blood pressure sites: Arm, right (08/17/23 20:14:00) Mean Arterial Pressure: 85 mm Hg (08/17/23 18:23:00) Pulse Pressure: 69 mm Hg (08/17/23 20:14:00) Oxygen Saturation: 100 % (08/17/23 20:14:00) Mode of Delivery (Oxygen): Room air (08/17/23 20:14:00) Early Warning Score: 8 (08/17/23 20:18:34) ? Physical Exam General: Alert, oriented x 3, appears tired and fatigued, no acute distress, obese HEENT: Atraumatic, normocephalic, EOMI, PERRL Neck: Supple, trachea midline Respiratory: CTAB, no wheezes, crackles or rhonchi CVS: S1, S2. ??RRR, no MRG, no JVD Abdomen: Soft, nontender, nondistended, positive bowel sounds Musculoskeletal: No deformities, no cyanosis Neuro: Alert and oriented x 3, cranial nerves II to XII intact, no facial asymmetry Psych: Appropriate mood and affect, cooperative Assessment/Plan Diagnoses Anal cancer ??(C21.0) Bloody stools ??(K92.1) Cancer related pain ??(G89.3) Chills ??(R68.83) Diarrhea ??(R19.7) General weakness ??(R53.1) ?? General weakness (R53.1):??. Chills (R68.83):??. Diarrhea (R19.7):??. Anal cancer (C21.0):??. Bloody stools (K92.1):? 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 currently onchemotherapy with concurrent radiation presenting with generalized weakness, chills, diarrhea and intermittent bloody stools.??Does report having subjective fevers as well approximately 1 week ago however denies any recent fevers in the past 2 to 3 days.??COVID-19 negative, chest x-ray nonacute, afebrile in the emergency department, lactic acid within normal limits.??Pancytopenic likely secondaryto myelosuppression in the setting of chemoradiation.??CT abdomen and pelvis with no evidence of acute intra-abdominal or pelvic abnormality.??Blood cultures have been obtained and pending, ED provider noted some white discharge from the vaginal and sent for chlamydia/Neisseria, vaginosis panel which is pending and we will follow-up.??UA negative for UTI.??Given her history of anal cancer and immunocompromise status given currently on chemoradiation, she has been started on cefepime and vancomyc in which we will continue for now.??Continue to monitor hemodynamics closely, follow-up with blood cultures, continue with IV fluids.??Oncology consultation requested for further evaluation and management. ?? Cancer related pain (G89.3):??Continue with oxycodone as needed ?? CKD:??Creatinine appears to be at baseline, avoid nephrotoxins, repeat??electrolytes and renal function in a.m. ?? Hypertension: Continue with diltiazem, lisinopril ?? Paroxysmal atrial fibrillation: Continue with diltiazem,??currently in normal sinus rhythm, used pascual on Eliquis??which was discontinued approximately 3 to 4 weeks ago due to??epistaxis ?? GERD: Continue with famotidine ?? Insulin-dependent type 2 diabetes mellitus: Continue with??Levemir 12 units nightly,??sliding scaleinsulin, hold glipizide and metformin??while inpatient ?? Anxiety/depression: Continue with sertraline ?? VTE prophylaxis:??Pneumatic compression boots. ??Holding off on??chemoprophylaxis??in the setting of??intermittent bloody stools and pancytopenia. ?? CODE STATUS: Full code ? Histories Allergies Allergies ?(Active and Proposed Allergies Only) doxycycline? (Severity: Unknown severity, Onset: Unknown) Influenza Virus Vaccine? (Severity: Unknown severity, Onset: Unknown) ?Comments: redness and swelling to side of inection ?Comments: from ear to fingers Motrin? (Severity: Unknown severity, Onset: Unknown) ?Comments: vomit dizziness, itchy ciprofloxacin? (Severity: Unknown severity, Onset: Unknown) ?Comments: vomit, dizziness, itchy levoFLOXacin? (Severity: Unknown severity, Onset: Unknown) ?Comments: vomit, dizziness ? Past Medical History/Problem List Squamous cell carcinoma of the anus Paroxysmal atrial fibrillation CKD Hypertension Hyperlipidemia GERD Anxiety/depression Type 2 diabetes mellitus ? Past Surgical History ?? Cholecystectomy Hysterectomy ?? Social History Former smoker Occasionally drinks alcohol No illicit drug use ?? Family History Mother???cholangiocarcinoma Brother???lung cancer ? Medications Home Medications Albuterol (albuterol 0.083% inhalation solution)?3?Milliliter?2.5?Milligram?Neb?Every 6 hours?as needed?as needed for wheezing Capecitabine (capecitabine 500 mg oral tablet)?3?tab(s)?1,500?Milligram?By Mouth?2 times a day Cholecalciferol (Vitamin D3 1000 intl units oral tablet)?1?tab(s)?25?Microgram?By Mouth?Daily Diltiazem (DilTIAZem (Eqv-Cardizem CD) 180 mg/24 hours oral capsule, extended release)?1?capsule?180?Milligram?By Mouth?Daily Ezetimibe (ezetimibe 10 mg oral tablet)?1?tab(s)?10?Milligram?By Mouth?Daily Famotidine (famotidine 20 mg oral tablet)?20?Milligram?1?tablet?By Mouth?2 times a day GlipiZIDE (glipiZIDE 10 mg oral tablet)?1?tab(s)?10?Milligram?By Mouth?2 times a day insulin degludec (Tresiba FlexTouch 100 units/mL subcutaneous solution)?12?unit(s)?Subcutaneous Injection?Daily at bedtime Lisinopril (lisinopril 40 mg oral tablet)?1?tab(s)?40?Milligram?By Mouth?Daily Loratadine (loratadine 10 mg oral tablet)?10?Milligram?1?tablet?By Mouth?Daily Metformin (metFORMIN 500 mg oral tablet)?2?tab(s)?1,000?Milligram?By Mouth?2 times a day Ondansetron (ondansetron 4 mg oral tablet, disintegrating)?1?tab(s)?4?Milligram?By Mouth?Every 8 hours?as needed?as needed for nausea/vomiting Oxycodone (oxyCODONE 5 mg oral tablet)?0.5 - 1 tablet?By Mouth?Every 6 hours?as needed?as needed for pain PROCHLORperazine (prochlorperazine 5 mg oral tablet)?1?tab(s)?5?Milligram?By Mouth?Every 6 hours?as needed?Nausea & Vomiting Rosuvastatin (rosuvastatin 40 mg oral tablet)?1?tab(s)?40?Milligram?By Mouth?Daily Sertraline (sertraline 100 mg oral tablet)?1?tab(s)?100?Milligram?By Mouth?2 times a day ? Results Recent Labs BLOOD COUNT & DIFF WBC 2.3 k/mm3 (Low)?? 08/17/2023 17:28 RBC 2.78 m/mm3 (Low)?? 08/17/2023 17:28 Hgb 9.2 Gm/dL (Low)?? 08/17/2023 17:28 Hct 26.1 % (Low)?? 08/17/2023 17:28 MCV 93.9 femtoliters ()?? 08/17/2023 17:28 MCH 33.1 pg ()?? 08/17/2023 17:28 MCHC 35.2 g/dL ()?? 08/17/2023 17:28 Platelet Count 147 k/mm3 (Low)?? 08/17/2023 17:28 RDW-SD 39.9 femtoliters ()?? 08/17/2023 17:28 MPV 8.4 femtoliters (Low)?? 08/17/2023 17:28 Nucleated RBC (Automated) 0.0 #/100 WBC'S ()?? 08/17/2023 17:28 Abs. NRBC 0.0 k/mm3 ()?? 08/17/2023 17:28 Abs. Neut 1.7 k/mm3 ()?? 08/17/2023 17:28 Abs. Lymph 0.2 k/mm3 (Low)?? 08/17/2023 17:28 Abs. [place] 0.2 k/mm3 (Low)?? 08/17/2023 17:28 Abs. Eo 0.1 k/mm3 ()?? 08/17/2023 17:28 Abs. Baso 0.0 k/mm3 ()?? 08/17/2023 17:28 Neut % 76.2 % (High)?? 08/17/2023 17:28 Lymph % 9.3 % (Low)?? 08/17/2023 17:28 [place] % 9.7 % ()?? 08/17/2023 17:28 Eos % 4.4 % ()?? 08/17/2023 17:28 Baso % 0.0 % ()?? 08/17/2023 17:28 Imm Gran 0.4 % ()?? 08/17/2023 17:28 Abs. Imm Gran 0.0 k/mm3 ()?? 08/17/2023 17:28 ?? CHEM GENERAL Sodium 139 mmol/L ()?? 08/17/2023 17:28 Potassium 3.4 mmol/L (Low)?? 08/17/2023 17:28 Chloride 105 mmol/L ()?? 08/17/2023 17:28 Bicarbonate Level 24 mmol/L ()?? 08/17/2023 17:28 Anion Gap 10 ()?? 08/17/2023 17:28 Glucose Level 132 mg/dL (High)?? 08/17/2023 17:28 BUN 20 mg/dL ()?? 08/17/2023 17:28 Creatinine-Blood 1.32 mg/dL (High)?? 08/17/2023 17:28 Estimated GFR Creatinine 45 ML/MIN/1.73 M2 ()?? 08/17/2023 17:28 Calcium 8.3 mg/dL (Low)?? 08/17/2023 17:28 Protein, Total 5.5 Gm/dL (Low)?? 08/17/2023 17:28 Albumin 3.4 Gm/dL ()?? 08/17/2023 17:28 AG Ratio 1.6 ()?? 08/17/2023 17:28 Alkaline Phosphatase 59 units/L ()?? 08/17/2023 17:28 Lipase 38 units/L ()?? 08/17/2023 17:28 AST (SGOT) 60 units/L (High)?? 08/17/2023 17:28 ALT (SGPT) 56 units/L (High)?? 08/17/2023 17:28 Bilirubin, Total 0.6 mg/dL ()?? 08/17/2023 17:28 Lactate 2.0 mmol/L ()?? 08/17/2023 17:30 ?? HEME OTHER Hold Blue Top SPECIMEN DISCARDED AFTER 4 HOURS. ()?? 08/17/2023 17:28 ?? UA/URINALYSIS Appear/Color, Urine COLORLESS ()?? 08/17/2023 18:57 Specific [place], Urine <1.005 ()?? 08/17/2023 18:57 pH, Urine 6.5 ()?? 08/17/2023 18:57 Albumin, Urine TRACE (Abnormal)?? 08/17/2023 18:57 Glucose, Urine NEGATIVE ()?? 08/17/2023 18:57 Ketones, Urine NEGATIVE ()?? 08/17/2023 18:57 Bilirubin, Urine NEGATIVE ()?? 08/17/2023 18:57 Hemoglobin, Urine NEGATIVE ()?? 08/17/2023 18:57 Nitrite, Urine NEGATIVE ()?? 08/17/2023 18:57 Leukocyte, Urine 2+ (Abnormal)?? 08/17/2023 18:57 Urobilinogen NORMAL mg/dL ()?? 08/17/2023 18:57 WBC's, Urine 5 /HPF ()?? 08/17/2023 18:57 RBC's, Urine <1 /HPF ()?? 08/17/2023 18:57 Squamous Epith <1 /HPF ()?? 08/17/2023 18:57 Mucus SLIGHT /LPF ()?? 08/17/2023 18:57 Hold Urine Culture Testing available 48 hours from time of collection. ()?? 08/17/2023 18:57 ?? URINE OTHER Est Creatinine Clearance 35.14 mL/min ()?? 08/17/2023 18:13 ?? VIROLOGY COVID-19 by RT-PCR NEGATIVE ()?? 08/17/2023 21:40 ? EKG study * Event Display: ECG 12-Lead Authored Date: Please click on pdf link to open report * Event Display: ECG 12-Lead Authored Date: Ventricular Rate: 77 BPM Atrial Rate: 77 BPM P-R Interval: 182 ms QRS Duration: 74 ms Q-T Interval: 382 ms QTC Calculation(Bazett): 432 ms P [place]: 61 degrees R [place]: 15 degrees T [place]: 42 degrees Normal sinus rhythm Septal infarct , age undetermined Abnormal ECG When compared with ECG of 15-APR-2021 12:50, Septal infarct is now Present Confirmed by Hesham Howell ([id number]) on 08/18/2023 7:31:57 AM [place]: Hesham Howell [facility] Progress note * Laura Cardozo RN: PERFORM, SIGN, VERIFY Event Display: Progress Note Hospital Authored Date: [id number] Patient: TAMAR STUART Age: 63 years Sex: Female : 1960 Associated Diagnoses: None Author: Laura Cardozo RN Findings Problem Related to Alteration in Comfort : Alteration in Comfort/new 08/22/2023 16:00 EDT Alteration in Comfort Related to Disease process Goals & Outcomes: Comfort Pt will report acceptable level of comfort & pain control, Pt will state importance of adhering to pain strategy regime, Pt will demonstrate necessary skills to manage pain, Non-verbal indicators will indicate comfort/pain control, Resolved problem, Goals/Outcomes met Interventions Implemented: Comfort Assess pain using appropriate pain scale/tools, Assess aggravating factors & prevent them accordingly, Assess alleviating factors & promote them accordingly Goals/Interventions, Comfort Yes Comfort, Problem Start 08/21/2023 2:58 Reviewed plan with, Comfort Patient, Children Patient Progression, Comfort Resolved problem Comfort, Problem Ongoing No Comfort, Problem Resolved 08/22/2023 16:24 . Alteration in Integumentary : Alteration in Integumentary/new 08/22/2023 16:00 EDT Alteration in Integumentary Related to Other: radiation burn to perianal area Goals & Outcomes, Integumentary Nutritional intake is adequate for metabolic needs, Pt will maintain adequate fluid & nutritional balance, Pt will maintain intact skin integrity, Wound will progress towards healing Interventions, Integumentary Resolved problem, Interventions no longer in effect Goals/Interventions, Integumentary Yes Integumentary, Problem Start 08/18/2023 2:00 Reviewed plan with, Integumentary Patient, Children Patient Progression, Integumentary Resolved problem Integumentary, Problem Resolved 08/22/2023 16:24 . Narrative/Incidental pt a&o x4. endorsing pain in perianal/vaginal area. prn oxycodone and tylenol administered withsome positive effect. pt continuing to have yellow vaginal/anal discharge[facility]. discharge orders placed this afternoon, education reviewed with pt and son, pt verbalized understanding. educated that last radiation appt is tomorrow at 1445. also informed pt that so me labs have not come back in regards to vaginal/anal discharge, but they should receive a call with results in 2-3 days, per dc paperwork, and provider recs f/u outpt with PCP. pt verbalized understanding. no IV access. left unit via wheelchair with son. . Discharge Information Case Management Discharge Plan : Case Management Discharge Plan Data 08/22/2023 16:23 EDT Discharge Level of Care at Discharge Home/Alf/[facility] * Cinda Velásquez RN: PERFORM, SIGN, VERIFY Event Display: Progress Note Hospital Authored Date: Patient: TAMAR STUART Age: 63 years Sex: Female : 1960 Associated Diagnoses: None Author: Cinda Velásquez RN Findings Problem Related to Alteration in Comfort : Alteration in Comfort/new 08/21/2023 12:00 EDT Alteration in Comfort Related to Disease process Goals & Outcomes: Comfort Pt will report acceptable level of comfort & pain control, Pt will state importance of adhering to pain strategy regime, Pt will demonstrate necessary skills to manage pain, Non-verbal indicators will indicate comfort/pain control Interventions Implemented: Comfort Assess pain using appropriate pain scale/tools, Assess aggravating factors & prevent them accordingly Goals/Interventions, Comfort Yes Comfort, Problem Start 08/21/2023 2:58 Reviewed plan with, Comfort Patient Patient Progression, Comfort Pt progressing according to plan Comfort, Problem Ongoing Yes . Evaluation Pt. alert and oriented x3, VSS. Abd softly distended, tender/gassy, BS+. Med with Oxy 5mg and simethicone with some relief. Declined Colace and Senna this evening. Up ad cindy with a steady gait. Will continue to monitor.. * Ezequiel FAJARDO, Kate Benoit: PERFORM, SIGN, VERIFY Event Display: Progress Note Hospital Authored Date: Patient: TAMAR STUART Age: 63 years Sex: Female : 1960 Associated Diagnoses: None Author: Ezequiel FAJARDO, Kate Benoit Findings Problem Related to Alteration in Comfort : Alteration in Comfort/new 08/21/2023 12:00 EDT Alteration in Comfort Related to Disease process Goals &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 Culture, Routine (08/17/2023) ???Urine Culture Results - Final report???Urine Culture Specimen Source - URINE VAGINOSIS PANEL (08/17/2023) ???Trichomonas vaginalis - NEGATIVE???Atopobium Vaginae - SEE COMMENT???Megasphaera Species - SEE COMMENT???C. Albicans,DNA - NEGATIVE???C. Glabrata, DNA - NEGATIVE???BVAB 2 - SEE COMMENT Allergies (NKA means No Known Allergies) Influenza Virus Vaccine Motrin ciprofloxacin doxycycline levoFLOXacin Problems Active Problems??(11) Anal cancer?? Anxiety?? Cancer related pain?? Chronic GERD?? Chronic kidney disease?? Depression?? HTN (hypertension), benign?? Obese class I?? PAF (paroxysmal atrial fibrillation)?? Renal cyst?? Type 2 diabetes mellitus without complication, with long-term current use of insulin?? Education Materials Below is the list of Educational Leaflet Providered with your Discharge Instructions. Valuables and Belongings I fully understand and agree that [facility] accepts no responsibility for all my personal property including clothing, toilet articles, radios, jewelry, dentures, hearing aids, rings, money, or any other property that is in my possession or is brought to me after admission. I understand certain valuables may be placed in a hospital safe for a short period of time. I understand that the hospital is not liable for loss or damage due to accident, fire, or other natural occurrence while said property is in the safe. I accept full responsibility for any personal property that I keep with me, and will not hold the hospital responsible in case of loss or disappearance. I acknowledge that i have been encouraged to send valuables and belongings home. ?? Review of Valuable and Belonging List: With patient Date for Pt to Sign Valuables/Belongings: 08/18/23 01:03:00 ?? Other Discharge Information ? Pulmonary Rehab Status?? Pulmonary Rehab Discharge Status?? Respiratory Rate: 18 br/min ? Common Emergency Awareness Tips IS IT A STROKE? Act FAST and Check for these signs: FACE Does the face look uneven? ARM Does one arm drift down? SPEECH Does their speech sound strange? TIME Call at any sign of stroke ?? Heart Attack Signs Chest discomfort: Most heart attacks involve discomfort in the center of the chest and lasts more than a few minutes, or goes away and comes back. It can feel like uncomfortable pressure, squeezing, fullness or pain. Discomfort in upper body: Symptoms can include pain or discomfort in one or both arms, back, neck, jaw or stomach. Shortness of breath: With or without discomfort. Other signs: Breaking out in a cold sweat, nausea, or lightheaded. Remember, MINUTES DO MATTER. If you experience any of these heart attack warning signs, call to get immediate medical attention! ?? Smoking can increase your chances of developing chronic health problems and can cause harmful effects to other family members in your house. If you smoke, you are strongly encouraged to quit. Please call [facility] [employer] Link at [phone] or [phone] ([phone]) or log in to [email or web address] for referrals to smoking cessation programs. ?? 845 Suicide & Crisis Lifeline is available 24/10 if you or someone you know needs to find a reason to keep living. By calling 652 you'll be connected to a skilled, trained counselor at a crisis center in your area. INPATIENT DISCHARGE INSTRUCTIONS SIGNATURE TAMAR BENAVIDEZ Location:[facility] Registration Date and Time:08/17/2023 20:05 EDT Primary Care Physician: Areli Elam NP, Attending Physician: Andi MURILLO, Naya Monahan, Benjy TAMAR STUART, have received the above patient education materials/instructions and have verbalized understanding. If ambulance or transport services are being used I further acknowledge being givena choice of service. ?? If you need to contact me, please call me at this number: . Patient/Horse Trainer Name: Patient/Horse Trainer Signature: Relationship to Patient: Witness Name/Signature: Date: Patient Care team information Care Team Personnel Name: Kate Nieves RN Position: [facility] RN Member Role: Primary Care Nurse Name: Laura Cardozo RN Position: S RN Member Role: Primary Care Nurse Name: Patricia Upton RN Position: [facility] RN Member Role: Primary Care Nurse Name: Hanny Muniz RN Position: [facility] Onco RN Member Role: Primary Care Nurse Name: Areli Elam NP Position: [facility] Outreach Member Role: PCP Address: Address: [address] [place] [id number]- [place] Care Team Related Persons Name: NITO ROGERS Address: home [address] [place] [id number]
--- OUTSIDE RECORDS SUMMARY | 2023-09-19 07:42 | XMS_ITS | Continuity of Care Document ---
Author Organization [facility] Address [address] [place] [address] [address] [place] [address]- Care Team Providers Care Analytical Chemist Name Role Phone Papa JOINT SETTER, Areli Boland Primary Care Physician Encounter [facility] Date(s): 09/11/23 - 09/18/[address] [place] [address]- Encounter Diagnosis Anal cancer(Discharge Diagnosis) - 09/11/23 Attending Physician: Merritt Montoya MD Referring Physician: Celso Mina MD Allergies, Adverse Reactions, Alerts Substance Reaction Severity Status ciprofloxacin 1 Active doxycycline Active OxyCODONE Hydrochloride pruritis of skin Persistent Mo derate Active levoFLOXacin 2 Active Influenza Virus Vaccine 3, 4 Active Motrin 5 Active 1vomit, dizziness, itchy 2vomit, dizziness 3from ear to fingers 4redness and swelling to side of inection 5vomit dizziness, itchy Medications acetaminophen-HYDROcodone 325 mg-5 mg oral tablet 1 tablet, By Mouth, Every 6 hours, PRN for pain, Discontinue oxycodone use, # 30 tablet, 0 Refills,Maintenance, 09/13/23 15:04:00 EDT, Tablet, [id number], Did not tolerate oxycodone due to skin [...] Refills, Maintenance, 07/13/23 11:43:00 EDT, DIS Tablet, [facility] #[id number], Partial fill upon patient request if the prescription is for a schedule II opioid... Start Date: 07/13/23 Status: Ordered prochlorperazine 5 mg oral tablet 1 tablet = 5 mg, By Mouth, Every 6 hours, PRN Nausea & Vomiting, # 30 tablet, 0 Refills, Maintenance, 07/13/23 11:43:00 EDT, Tablet, [facility]pharm[facility] #[id number], Partial fill upon patient request [...] current use of insulin Confirmed 08/18/23 Active Diagnosis Diagnosis Type Effective Dates Health Status [facility] Service Informant Anal cancer Discharge Diagnosis 09/11/23 Vital Signs Most recent to oldest [Reference Range]: 1 Height 160 cm (09/11/23 4:20 PM) Weight 82.8 kg (09/11/23 4:20 PM) Pulse Rate [55-90 bpm] 96 bpm *H* (09/11/23 4:20 PM) Body Mass Index [18.5-24.99 kg/m2] 32.34 kg/m2 *>HHI* (09/11/23 4:20 PM) Blood Pressure [90-138/55-84 mm Hg] 97/6 3mm Hg (09/11/23 4:20 PM) Temperature [96.8-100.4 DegF] 97.1 DegF (09/11/23 4:20 PM) Blood pressure sites Arm, right (09/11/23 4:20 PM) Temperature Route Temporal (09/11/23 4:20 PM) Social History Social History Type Response Smoking Status Former smoker, quit more than 30 days ago entered on: 09/11/23 Sex Patient Care team information Care Team Personnel Name: Kate Nieves RN Position: [facility] RN Member Role: Primary Care Nurse Name: Laura Cardozo RN Position: [facility] RN Member Role: Primary Care Nurse Name: Patricia Upton RN Position: [facility] RN Member Role: Primary Care Nurse Name: Hanny Muniz RN Position: [facility] Onco RN Member Role: Primary Care Nurse Name: Areli Elam NP Position: [facility] Outreach Member Role: PCP Address: Address: [address] [place] [id number]- Care Team Related Persons Name: NITO ROGERS Address: home [address] [place] [id number]
[2023-09-19 08:09] LABS: Influenza A PCR NEGATIVE (Negative); Influenza B PCR NEGATIVE (Negative); Resp Syncy Virus RNA Qual PCR NEGATIVE (Negative); SARS COV2 PCR INHOUSE NEGATIVE (Negative)
[2023-09-19 08:15] VITALS: BP 136/60; PULSE 73; RESP 14; TEMP 36.6; O2SAT 98
[2023-09-19] MEDS: Benzonatate 100 MG CAPSULE 200 MG PO (08:19)
[2023-09-19] MEDS: dexAMETHasone sod phosphate 10 MG/ML VIAL IVPUSH (08:19)
[2023-09-19 09:24] VITALS: BP 136/60; PULSE 73; RESP 14; TEMP 36.6; O2SAT 98
== END 2023-09-19 09:24 | disposition home or self-care (01) ==
PROVIDERS: Emergency Provider Emergency Medicine; PCP Nurse Practitioner Primary Care
DX: J40 Bronchitis, not specified as acute or chronic (principal); R06.02 Shortness of breath; R05.9 Cough, unspecified; E11.9 Type 2 diabetes mellitus without complications; I10 Essential (primary) hypertension; E78.5 Hyperlipidemia, unspecified; I48.0 Paroxysmal atrial fibrillation; Z87.891 Personal history of nicotine dependence; Z03.818 Encounter for observation for suspected exposure to other biological agents ruled out
CPT/HCPCS: 0241U; 71046; 99283; J1100

== ENCOUNTER 2023-10-03 09:36 | Outpatient (AMB) | payer OTHER, SELFPAY ==
[2023-10-03 09:43] VITALS: BP 98/60; PULSE 76; BMI 32.7
--- NOTE | 2023-10-03 09:43 | A.OFFVIS_ITS ---
Vital Signs 10/03/23 09:43 Height 5 ft 3 in Weight 184 lb 11.958 oz BMI 32.7 BP 98/60 Pulse 76 Intake Visit Reasons: f/up Intake Note: F/U Clutch Operator Required: No Accompanied by: Self / Same As Patient Allergies ibuprofen [IBUPROFEN] Allergy (Severe, Verified 09/19/23 07:11) SICK TO MY STOMACH ciprofloxacin [From CIPRO] Allergy (Intermediate, Verified 09/19/23 07:11) SICK doxycycline Allergy (Intermediate, Verified 09/19/23 07:11) Dizziness levofloxacin [From LEVAQUIN] Allergy (Intermediate, Verified 09/19/23 07:11) SICK , nausea, dizziness x days flu vaccine Allergy (Intermediate, Uncoded 07/26/23 10:03) Swelling Medication List - Last Reconciled 10/03/23 by Yovanny Reid MD acetaminophen 1,000 mg PO DAILY PRN albuterol sulfate 2.5 mg (3 mL) inhalation QID PRN albuterol sulfate 90 mcg/actuation (Ventolin HFA) inhalation blood sugar diagnostic (FreeStyle Lite Strips) As directed capecitabine 1,500 mg (3 x 500 mg) PO BID cholecalciferol (vitamin D3) 25 mcg PO DAILY dicyclomine 10 mg PO QID diltiazem HCl CD 180 mg PO DAILY ezetimibe 10 mg PO DAILY famotidine 20 mg PO BID glipizide 10 mg PO BID insulin degludec (Tresiba FlexTouch U-100 insulin) 12 units subcut DAILY lancets (FreeStyle Lancets) As directed 1x/daily lisinopril 40 mg PO DAILY loratadine 10 mg PO DAILY magnesium oxide 400 mg PO DAILY metformin ER 1,000 mg (2 x 500 mg) PO BID rosuvastatin 40 mg PO DAILY sertraline 100 mg PO DAILY PRN HPI Comments Details: Zee comes for follow-up. Since I last saw her in April she was diagnose with annual carcinoma for which she underwent radiation and chemotherapy. Her Eliquis was stopped due to radiation proctitis. She has not had any episodes of atrial fibrillation. Denies any other cardiac symptoms. Due to her chemotherapy and radiation therapy she was not able to eat and had poor appetite and as a result has lost a significant amount of weight. She has not had much epistaxis since a blood pressures been better controlled. She did have a ENT evaluation which did not find any pathology in her nose. With the weight loss or shortness of breath also has improved. She denies any orthopnea, PND. [facility] Medical History Restrictive lung disease Dyspnea on exertion Smoking greater than 30 pack years CKD (chronic kidney disease) stage 3, GFR 30-59 ml/min Babesiasis Paroxysmal atrial fibrillation CAD (coronary artery disease) Asthma Diabetes Bronchitis Obesity (BMI 30-39.9) Vitamin D deficiency Osteopenia Dyslipidemia Hypertension Diabetic 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 GERD (gastroesophageal reflux disease) Surgical History Hx of cataract surgery Hx of foot surgery Hx of colonoscopy History of esophagogastroduodenoscopy (EGD) Family History Father Heart failure Diabetes mellitus Mother Cholangiocarcinoma Diabetes mellitus Family history of hypertension Family history of heart attack Brother Lung cancer Family/Other Breast cancer Sister Social History Household Members: Family Housing: House Do you presently have visiting nurse or other home services: No Alcohol intake: current Alcohol intake frequency: a few times a month Alcohol type: beer Patient Tobacco Use Status: Former Tobacco user Tobacco use type: Cigarette Years Smoked: 45 e-Cigarette/Vaping Use: Never Used Advance Directives Date on File: 10/19/22 service: No Current occupational status: unemployed Review of Systems Const Denies chills, Denies fatigue, Denies fever(s), Denies weight gain and Denies weight loss Card Denies chest pain, Denies leg edema, Denies lightheadedness, Denies palpitations, Denies dyspnea on exertion and Denies orthopnea Resp Denies cough and Denies dyspnea on exertion GI Reports melena, Denies hematochezia and Denies change in stool character Musc Denies muscle weakness and Denies radiating pain into limb Endo Denies fatigue and Denies palpitations Physical Exam Vital Signs: Last Vital Signs Pulse 76 10/03/23 09:43 BP 98/60 10/03/23 09:43 BMI result Body Mass Index 32.7 Const General: cooperative, no acute distress, alert and awake Orientation/consciousness: patient oriented x3 Neck Neck: Yes normal visual inspection and Yes no JVD Resp Effort & Inspection: normal respiratory effort, able to speak in complete sentences and not labored Auscultation: clear to auscultation bilaterally, no crackles, no rales, no rhonchi and no wheezes Cardio Palpation: normal PMI Rate: regular rate Rhythm: regular rhythm Heart sounds: S1 normal heart sound present and S2 normal heart sound present GI Inspection: Yes normal to inspection Neuro General: patient oriented x3 Extrem General: Yes normal to inspection and No edema Assessment & Plan Assessment & Plan (1) Paroxysmal atrial fibrillation: Code(s): I48.0 - Paroxysmal atrial fibrillation Category: Medical Plan: Highly symptomatic paroxysmal atrial fibrillation which has remained suppressed on therapy with Cardizem. Continue the same. Avoidance of stimulants was discussed. No indication for antiarrhythmic drug therapy. Weight loss is going to significantly help reduce future recurrence of atrial fibrillation. Currently not on oral anticoagulation due to radiation related proctitis probably. However if bleeding risk is not significant, should reconsider using oral anticoagulation therapy. If she is considered high risk for recurrent bleeding consider Watchman device. She has a scheduled appointment with them. (2) CAD (coronary artery disease): Code(s): I25.10 - Atherosclerotic heart disease of resighini coronary artery without angina pectoris Category: Medical Plan: CAD nonobstructive without any new symptoms. Continue aggressive risk factor modification. Blood pressure is currently well optimized importance of good blood pressure control was discussed. Continue current therapy. Continue aggressive diabetes management goal hemoglobin A1c less than 7%. Continue high- intensity statin therapy with target goal LDL less than 70 mg/dL. Advised to call me with new symptoms. Follow up in the clinic in 6 months time, sooner p.r.n.. Thank you for allowing me to partake in her care Medications: New lisinopril 10 mg PO DAILY 30 tabs 1RF Coding Level of Care Code Est Pt Level 4 (01924) Diagnoses Paroxysmal atrial fibrillation I48.0 CAD (coronary artery disease) I25.10
== END 2023-10-03 10:11 | disposition home or self-care (01) ==
PROVIDERS: PCP Nurse Practitioner Primary Care; Visit Provider Internal Medicine Cardiovascular Disease
DX: I48.0 Paroxysmal atrial fibrillation (principal); I25.10 Atherosclerotic heart disease of native coronary artery without angina pectoris
CPT/HCPCS: 99214

== ENCOUNTER → 2023-10-03 09:36 | Outpatient (BNVA) | payer OTHER, SELFPAY | PROVIDERS: PCP Nurse Practitioner Primary Care; Visit Provider Internal Medicine Cardiovascular Disease | DX: I48.0 Paroxysmal atrial fibrillation (principal); I25.10 Atherosclerotic heart disease of native coronary artery without angina pectoris; I10 Essential (primary) hypertension | CPT/HCPCS: 99212 ==

== ENCOUNTER 2023-10-24 07:40 | Emergency (ER) | payer OTHER, SELFPAY ==
--- NOTE | ~2023-10-24 | CT_ITS ---
EXAMINATION: CT CHEST, ABDOMEN AND PELVIS WITHOUT CONTRAST CLINICAL INFORMATION: Fall/trauma COMPARISON: CT chest abdomen pelvis from 03/03/2023 TECHNIQUE: Multidetector volumetric CT imaging of the chest, abdomen, and pelvis was performed. Axial MIP volume rendering provided. Sagittal and coronal reformatted images were obtained. This CT examination was performed using dose optimization techniques as appropriate, variously including the following: *Automated exposure control *Adjustment of mA and/or kV according to patient size (this includes techniques or standardized protocols for targeted exams where dose is matched to indication/reason for exam; i.e. extremities or head) *Use of iterative reconstruction technique DLP: 1854 mGy-cm. FINDINGS: CHEST: LUNGS/PLEURA: Emphysematous changes. Biapical pleural parenchymal scarring. 2 mm nodule left lung apex (series 29, image 48), stable. 2 mm pleural-based nodular focus along the posterior medial aspect of the right lung apex (series 29, image 55), stable. Stable 2 mm subpleural nodule along the posterior aspect of the left lower lobe (series 29, image 198). Stable 3 mm nodule along the posterior medial aspect left lower lobe (series 29, image 234). No new enlarged or suspicious pulmonary nodules or masses are noted. Central airways are patent. No pneumothorax. No large pleural effusion. Bibasilar atelectasis. MEDIASTINUM: Heart is not enlarged. No pericardial effusion. Coronary artery calcifications are noted. Aorta is nonaneurysmal and demonstrates atherosclerotic calcifications. Main pulmonary artery is not enlarged. A few mildly prominent though nonenlarged mediastinal lymph nodes are noted. Visualized portions of the thyroid are unremarkable. Slight elevation right hemidiaphragm. AXILLA: No lymphadenopathy. ABDOMEN AND PELVIS: LIVER, GALLBLADDER, AND BILIARY TREE: The liver is normal in size, shape, and attenuation. No focal hepatic lesion or biliary ductal dilatation is present. Gallbladder is surgically absent. PANCREAS: Unremarkable. SPLEEN: Unremarkable. ADRENAL GLANDS: Previously identified adrenal nodule is less conspicuous on current examination. Left adrenal gland is unremarkable. KIDNEYS AND URETERS: Bilateral renal cysts, not requiring follow-up. The kidneys are normal in size, shape, and attenuation. No hydronephrosis, hydroureter, or calculi seen. Stable bilateral perinephric stranding. BLADDER: Unremarkable. GASTROINTESTINAL TRACT: Colonic diverticulosis without acute diverticulitis. The small and large bowel are unremarkable. The appendix is not definitively visualized. ABDOMINAL WALL: Tiny fat filled umbilical hernia. LYMPH NODES: No enlarged lymph nodes per size criteria. VASCULAR: Aorta is nonaneurysmal. Atherosclerotic calcifications of the abdominal aorta and its branches. PELVIC VISCERA: There is appears surgically absent. OSSEOUS STRUCTURES: Multilevel degenerative changes of the thoracolumbar and lumbosacral spine. CT/CT abdomen pelvis wo IV con IMPRESSION: 1. No acute process of the chest, abdomen, or pelvis identified. 2. Stable bilateral pulmonary nodules the largest measuring up to 3 mm. No new enlarged or suspicious pulmonary nodules or masses are noted. 3. Status post cholecystectomy. 4. Bilateral renal cysts, not requiring follow-up. 5. Colonic diverticulosis without acute diverticulitis.
--- NOTE | ~2023-10-24 | CT_ITS ---
EXAMINATION: CT HEAD WITHOUT CONTRAST CLINICAL INFORMATION: Fall head strike COMPARISON: CT head from 11/25/2020 TECHNIQUE: Contiguous axial imaging was performed from the skull base to vertex without intravenous administration of contrast. This CT examination was performed using dose optimization techniques as appropriate, variously including the following: *Automated exposure control *Adjustment of mA and/or kV according to patient size (this includes techniques or standardized protocols for targeted exams where dose is matched to indication/reason for exam; i.e. extremities or head) *Use of iterative reconstruction technique DLP: 635.34 mGy-cm FINDINGS: There is no evidence of acute intracranial hemorrhage or territorial infarction. No abnormal mass effect or midline shift is seen. Gomez to white matter differentiation is well preserved. No extra-axial fluid collections are identified. The ventricles are normal in size. There is no abnormal attenuation within the brain parenchyma. The osseous structures and soft tissues are normal. The mastoid air cells and visualized portions of the paranasal sinuses are well aerated. CT/CT cervical spine wo IV con IMPRESSION: No acute intracranial pathology. EXAMINATION: Noncontrast CT scan of the cervical spine. INDICATION: Fall neck pain COMPARISON: None. TECHNIQUE: Helical, multidetector axial images were obtained from the occiput to the upper thorax. Coronal and sagittal reformats of the cervical spine were provided for interpretation. DLP: 425.58 mGy-cm FINDINGS: No acute fractures or dislocations of the cervical spine are seen. Straightening of normal cervical curvature. Multilevel degenerative changes. Anatomic alignment and positioning of the vertebral bodies and posterior elements is noted. The atlantoaxial joint and craniovertebral articulations are normal without evidence of subluxation. There is no prevertebral soft tissue swelling. The thyroid gland and visualized portions of the lung apices and mediastinum are unremarkable. IMPRESSION: 1. No acute visible fracture or dislocation. 2. Straightening of normal cervical curvature. 3. Multilevel degenerative changes.
[2023-10-24 07:45] VITALS: BP 170/59; PULSE 84; RESP 16; TEMP 36.7; O2SAT 95; BMI 31.9
[2023-10-24 09:12] LABS: MANUAL DIFF FLAG NO
--- NOTE | 2023-10-24 09:12 | ED_ITS ---
HPI - Fall General Chief Complaint: Fall Stated Complaint: Fell down stairs on 10/22/23 Time Seen by Provider: 10/24/23 08:47 Source: patient Mode of arrival: ambulatory Limitations: no limitations History of Present Illness ED Provider: Chicho Pisano PA-C HPI Narrative: This is a 63 year old female with history of Afib on Eliis, squamous cell anal carcinoma, GERD, obesity, type 2 DM, CAD, HTN presenting with lower back pain after a fall on Monday. She reports falling backwards onto her bottom after tripping over last 2 steps of the stairs, denies head strike and LOC, denies preceding dizziness, syncope, lightheadedness. She reports pain and bruising on the right side of the lower back and coccyx. Pain is worsened with movement and sitting, better when laying down. She has been taking Tylenol with little to no relief. Denies chest pain, sob, nausea, vomiting, abdominal pain, fevers, chills, visual changes, headaches, changes in bowel habits, saddle anesthesias, weakness. Related Data Home Medications ?Medication ?Instructions ?Recorded ?Confirmed sertraline 100 mg tablet 100 mg PO DAILY PRN Anxiety 02/26/20 10/03/23 blood sugar diagnostic (FreeStyle #10 ea 06/23/21 07/26/23 Lite Strips) acetaminophen 500 mg tablet 1,000 mg PO DAILY PRN Pain 10/24/22 10/03/23 glipizide 10 mg tablet 10 mg PO BID 10/24/22 10/03/23 insulin degludec 100 unit/mL (3 12 unit subcut DAILY 10/24/22 10/03/23 mL) subcutaneous pen (Tresiba FlexTouch U-100 insulin) albuterol sulfate 90 mcg/actuation inhalation 06/20/23 10/03/23 aerosol inhaler (Ventolin HFA) loratadine 10 mg tablet 10 mg PO DAILY 06/20/23 10/03/23 Previous Rx's ?Medication ?Instructions ?Recorded cholecalciferol (vitamin D3) 25 25 mcg PO DAILY #30 caps 04/04/21 mcg (1,000 unit) capsule ezetimibe 10 mg tablet 10 mg PO DAILY #30 tabs 06/23/21 lancets 28 gauge (FreeStyle #100 ea 06/23/21 Lancets) metformin 500 mg tablet,extended 1,000 mg (2 x 500 mg) PO BID #360 12/14/21 release 24 hr tabs rosuvastatin 40 mg tablet 40 mg PO DAILY #90 tabs 12/14/21 albuterol sulfate 2.5 mg/3 mL 2.5 mg (3 mL) inhalation QID PRN 01/08/22 (0.083 %) solution for nebulization shortness of breath or wheezing #75 mL capecitabine 500 mg tablet 1,500 mg (3 x 500 mg) PO BID #120 05/05/23 tabs famotidine 20 mg tablet 20 mg PO BID #60 tabs 06/20/23 magnesium oxide 400 mg PO DAILY #30 tabs 08/15/23 diltiazem HCl 180 mg 180 mg PO DAILY #90 caps 08/22/23 capsule,extended release 24 hr dicyclomine 10 mg capsule 10 mg PO QID #360 caps 09/15/23 lisinopril 10 mg tablet 10 mg PO DAILY #30 tabs 10/03/23 acetaminophen 325 mg capsule 325 mg PO Q4H PRN pain #30 caps 10/24/23 (Tylenol) cyclobenzaprine 10 mg tablet 10 mg PO BEDTIME PRN muscle spasm 10/24/23 #7 tabs lidocaine 5 % topical patch 1 patch topical DAILY PRN pain #15 10/24/23 ea Allergies Allergy/AdvReac Type Severity Reaction Status Date / Time ibuprofen [IBUPROFEN] Allergy Severe SICK TO Verified 10/24/23 07:47 MY STOMACH ciprofloxacin [From CIPRO] Allergy Intermediate SICK Verified 10/24/23 07:47 doxycycline Allergy Intermediate Dizziness Verified 10/24/23 07:47 levofloxacin [From LEVAQUIN] Allergy Intermediate SICK , Verified 10/24/23 07:47 nausea, dizziness x days flu vaccine Allergy Intermediate Swelling Uncoded 10/24/23 07:47 Review of Systems 2 Review of Systems: Yes all other systems are reviewed and are negative PMFSH Past Medical History Attestation statement: The following information was validated with the patient. Source: old records reviewed and nursing notes reviewed Medical History Restrictive lung disease Dyspnea on exertion Smoking greater than 30 pack years CKD (chronic kidney disease) stage 3, GFR 30-59 ml/min Babesiasis Paroxysmal atrial fibrillation CAD (coronary artery disease) Asthma Diabetes Bronchitis Obesity (BMI 30-39.9) Vitamin D deficiency Osteopenia Dyslipidemia Hypertension Diabetic 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 GERD (gastroesophageal reflux disease) Surgical History Hx of cataract surgery Hx of foot surgery Hx of colonoscopy History of esophagogastroduodenoscopy (EGD) Family History Family History Father Heart failure Diabetes mellitus Mother Cholangiocarcinoma Diabetes mellitus Family history of hypertension Family history of heart attack Brother Lung cancer Family/Other Breast cancer Sister Social History Social History Household Members: Family Housing: House Do you presently have visiting nurse or other home services: No Alcohol intake: current Alcohol intake frequency: a few times a month Alcohol type: beer Patient Tobacco Use Status: Former Tobacco user Tobacco use type: Cigarette Years Smoked: 45 e-Cigarette/Vaping Use: Never Used Advance Directives: Yes Advance Directives on File: Yes Advance Directives Date on File: 10/19/22 Do you have a plan to hurt others: No Plan service: No Current occupational status: unemployed Physical Exam 2 Vital Signs: Vital Signs: Last Vital Signs Temp 97.2 F 10/24/23 11:50 Pulse 78 10/24/23 11:50 Resp 16 10/24/23 11:50 BP 151/68 H 10/24/23 11:50 Pulse Ox 98 10/24/23 11:50 O2 Del Method Room Air 10/24/23 11:50 BMI result Body Mass Index 31.9 vss Appearance: Alert.? Oriented X3.? No acute distress.? Head: Normocephalic, atraumatic, no step-offs or deformities Eyes: Pupils equal, round and reactive to light.? Neck: Normal inspection.? Neck supple.? CVS: Normal heart rate and rhythm.? Pulses normal.? Respiratory: No respiratory distress.? Breath sounds normal.? Abdomen: Soft and nontender.? Skin: Skin warm and dry.? Normal skin color.? Normal skin turgor.? Extremities: No lower extremity edema.? No calf ttp. 5/5 strength to bilateral upper and lower extremities. No numbness or paresthesias distally. Back: No midline tenderness, no C-spine tenderness, full range of motion, no CVA tenderness bilaterally. + ttp and ecchymosis over right paraspinal lumbar region and coccyx. Neuro: Oriented X 3.? No motor deficit.? No sensory deficit. CN 2-12 intact Course Reevaluation(s) Reevaluation #1: CBC with a macrocytic anemia has been present in the past. Will have her follow-up with PCP. Platelets low however they have been low in the past as well, will have her follow-up with PCP. Chemistry unremarkable. Normal magnesium which patient was worried about as she is a cancer patient and she states at times it runs low. Coags unremarkable. UA without infection CT head and cervical spine no acute intracranial pathology no acute visible fracture dislocation straightening of the normal cervical curvature is noted. CT chest, abdomen and pelvis no acute process in the chest abdomen or pelvis. Bilateral pulmonary nodules, patient made aware of this. Status post cholecystectomy. Bilateral renal cyst. Patient will be given Lidoderm, Tylenol and cyclobenzaprine. Will have her follow-up with PCP. Educated patient on diagnosis and treatment plan, answered all question, patient verbalizes understanding. At this time patient will be discharged home, advised to return with new or worsening symptoms. Educated on worrisome signs and symptoms and when to return. At this time I feel comfortable discharge home. Time: 12:15 Medications Administered Discontinued Medications Generic Name Dose Route Start Last Admin Trade Name Freq PRN Reason Stop Dose Admin Acetaminophen 975 mg 10/24/23 11:36 10/24/23 11:45 Acetaminophen 325 Mg Tablet PO 10/24/23 11:37 975 mg ONCE ONE Administration Lidocaine 1 patch 10/24/23 11:36 10/24/23 11:45 Lidocaine 4 % Patch Adh..Patch TRANSDERMA 10/24/23 11:37 1 patch ONCE ONE Administration Protocol Medical Decision Making Medical Decision Making MDM Narrative: 63 year old female with history of Afib on Eliquis, anal cancer, type 2 DM presenting with lower back pain and bruising after a fall on 10/21. PE - + ttp and ecchymosis over right paraspinal lumbar region and coccyx. No numbness, paresthesias, or weakness distally. Hx and PE concerning for back contusion vs musculoskeletal strain. Unlikely acute fracture or dislocation, ICH, stroke, posterior stroke, cauda equina, epidural abscess, spinal cord compression. Plan - labs, imaging, urine Differential Diagnosis Differential Diagnoses: The differential diagnosis associated with the presentation includes Hx and PE concerning for back contusion vs musculoskeletal strain. Unlikely acute fracture or dislocation, ICH, stroke, posterior stroke, cauda equina, epidural abscess, spinal cord compression. Admission/Observation Consideration of admission/observation: Escalation of care including admission/observation considered unlikley Lab Data MDM Lab Attestation statement: I reviewed the patient's lab results. 10/24/23 09:08 10/24/23 09:08 Labs: Lab Results 10/24/23 10/24/23 Range/Units 09:08 10:55 WBC 3.3 L (4.8-10.8) X10*3/uL RBC 2.94 L (4.20-5.50) X10*6/uL Hgb 10.7 L (12.0-16.0) g/dl Hct 31.3 L D (37.0-47.0) % MCV 106.5 H (80.0-98.0) fL MCH 36.4 H (27.0-33.0) pg MCHC 34.2 (31.0-35.0) g/dl RDW 14.3 (11.0-16.0) % Plt Count 151 L (160-400) X10*3/uL MPV 8.4 L (9.4-12.3) fL Immature Gran % (Auto) 0.6 H (0.0-0.4) % Neut % (Auto) 66.9 (45-73) % Lymph % (Auto) 20.6 (20-40) % [place] % (Auto) 9.8 (2-11) % Eos % (Auto) 1.8 (0-4) % Baso % (Auto) 0.3 (0-2) % Lymph # (Auto) 0.7 L (1.2-4.9) X10*3/uL [place] # (Auto) 0.3 (0.1-1.2) X10*3/uL Eos # (Auto) 0.1 (0.0-0.4) X10*3/uL Baso # (Auto) 0.0 (0.0-0.2) X10*3/uL Abs Immat Gran (auto) 0.02 (0.00-0.03) X10*3/uL Absolute Neuts (auto) 2.2 (2.0-8.3) x10*3/uL Absolute Nucleated RBC 0.000 (0.0-0.012) X10*3/uL Nucleated RBC % (auto) 0.0 (0.0-0.2) /100WBC PT 13.9 H (11.1-13.3) SEC INR 1.1 (0.9-1.1) Sodium 140 (135-145) mmol/L Potassium 4.5 (3.3-5.1) mmol/L Chloride 110 H (96-108) mmol/L Carbon Dioxide 22 (22-29) mmol/L Anion Gap 13 (12-20) BUN 17 H (9-16) mg/dL Creatinine 0.97 (0.5-1.4) mg/dL Estim Creat Clear Calc 58.5 Estimated GFR 58 Random Glucose 218 H (60-115) mg/dL Calcium 9.0 D (8.4-10.2) mg/dL Magnesium 1.6 (1.6-2.6) mg/dL Total Bilirubin 0.5 (0.0-1.0) mg/dL AST 20 (5-31) U/L ALT 16 (0-31) U/L Alkaline Phosphatase 59 (39-117) U/L Total Protein 6.4 L (6.5-8.0) g/dL Albumin 3.7 (3.5-5.0) g/dL Urine Color Yellow Urine Appearance Clear Urine pH 6.0 (5.0-9.0) Ur Specific [place] 1.015 (1.005-1.025) Urine Protein 30 (1+) H (Neg-Trace) mg/dL Urine Glucose (UA) Negative (Negative) mg/dL Urine Ketones Negative (Negative) mg/dL Urine Blood Negative (Negative) Urine Nitrite Negative (Negative) Ur Leukocyte Esterase Negative (Negative) Urine RBC 0-2 (0-2) /HPF Urine WBC 0-5 (0-5) /HPF Ur Squamous Epith Cells 0-2 (0-2) /HPF Urine Bacteria None Seen (None Seen) Hyaline Casts 0-2 (0-2) /LPF Independent Interpretation I performed an independent interpretation of an: CT Scan Interpretation: FINDINGS: No acute fractures or dislocations of the cervical spine are seen. Straightening of normal cervical curvature. Multilevel degenerative changes. Anatomic alignment and positioning of the vertebral bodies and posterior elements is noted. The atlantoaxial joint and craniovertebral articulations are normal without evidence of subluxation. There is no prevertebral soft tissue swelling. The thyroid gland and visualized portions of the lung apices and mediastinum are unremarkable. IMPRESSION: 1. No acute visible fracture or dislocation. 2. Straightening of normal cervical curvature. 3. Multilevel degenerative changes. CT/CT chest wo IV con IMPRESSION: 1. No acute process of the chest, abdomen, or pelvis identified. 2. Stable bilateral pulmonary nodules the largest measuring up to 3 mm. No new enlarged or suspicious pulmonary nodules or masses are noted. 3. Status post cholecystectomy. 4. Bilateral renal cysts, not requiring follow-up. 5. Colonic diverticulosis without acute diverticulitis. IMPRESSION: 1. No acute visible fracture or dislocation. 2. Straightening of normal cervical curvature. 3. Multilevel degenerative changes. Radiology Impression Discussion of test interpretation with radiology: I have reviewed the radiologist's reading. Prescription Management I considered prescription management with: Pain Medication and Other (cyclobenzaprine ) Critical Care Time Critical Care Time Critical Care Time: No Discharge Plan Discharge Clinical Impression: Contusion of flank and back, Fall Patient Disposition: Home, Self-Care Instructions: Contusion in Adults (ED), Fall Prevention (ED) Additional Instructions: Take your medications as prescribed. If you were prescribed antibiotics today, it is important that you take your medication to their entirety, do not skip any doses, do not finish them early. Follow-up with your primary care provider this week. Return to the emergency department with new or worsening symptoms. Such as fevers, chills, chest pain, shortness of breath, nausea, vomiting, dizziness, headache, vision changes, lethargy In case of emergency call 911 Cyclobenzaprine is a muscle relaxer it is strong and can make you drowsy. Do not take with sedatives or any other muscle relaxers or alcohol. Do not drive or operate machinery while taking this. Do not share this medication with anyone. CT/CT head/brain& cervical spine wo IV con IMPRESSION: No acute intracranial pathology. IMPRESSION: 1. No acute visible fracture or dislocation. 2. Straightening of normal cervical curvature. 3. Multilevel degenerative changes. CT/CT chest & abd / pelvis wo IV con IMPRESSION: 1. No acute process of the chest, abdomen, or pelvis identified. 2. Stable bilateral pulmonary nodules the largest measuring up to 3 mm. No new enlarged or suspicious pulmonary nodules or masses are noted. 3. Status post cholecystectomy. 4. Bilateral renal cysts, not requiring follow-up. 5. Colonic diverticulosis without acute diverticulitis. Prescriptions: New cyclobenzaprine 10 mg tablet 10 mg PO BEDTIME PRN (Reason: muscle spasm) Qty: 7 0RF lidocaine 5 % adhesive patch,medicated 1 patch topical DAILY PRN (Reason: pain) Qty: 15 0RF Rx Instructions: leave on most painful area for up to 12 hrs acetaminophen [Tylenol] 325 mg capsule 325 mg PO Q4H PRN (Reason: pain) Qty: 30 0RF No Action cholecalciferol (vitamin D3) 25 mcg (1,000 unit) capsule 25 mcg PO DAILY Qty: 30 11RF metformin 500 mg tablet extended release 24 hr 1,000 mg PO BID Qty: 360 1RF Hold Instructions: Resume on 10/28/22. rosuvastatin 40 mg tablet 40 mg PO DAILY Qty: 90 1RF diltiazem HCl 180 mg capsule,extended release 24hr 180 mg PO DAILY Qty: 90 1RF dicyclomine 10 mg capsule 10 mg PO QID Qty: 360 1RF albuterol sulfate 2.5 mg /3 mL (0.083 %) solution for nebulization 2.5 mg inhalation QID PRN (Reason: shortness of breath or wheezing) Qty: 75 0RF capecitabine 500 mg Tablet 1,500 mg PO BID Qty: 120 2RF Rx Instructions: Take 1500 mg twice a day days 1-5/week, on days of radiation for 8 weeks. must administer with water 30 minutes after a meal magnesium oxide 400 mg magnesium tablet 400 mg PO DAILY Qty: 30 0RF glipizide 10 mg tablet 10 mg PO BID acetaminophen 500 mg Tablet 1,000 mg PO DAILY PRN (Reason: Pain) insulin degludec [Tresiba FlexTouch U-100] 100 unit/mL (3 mL) insulin pen 12 unit subcut DAILY (DME) FreeStyle Lite Strips Strip See Rx Instructions Not Applicable DAILY Qty: 10 Rx Instructions: As directed (DME) lancets [FreeStyle Lancets] 28 gauge misc See Rx Instructions .Route Qty: 100 3RF Rx Instructions: As directed 1x/daily ezetimibe 10 mg tablet 10 mg PO DAILY Qty: 30 11RF sertraline 100 mg tablet 100 mg PO DAILY PRN (Reason: Anxiety) lisinopril 10 mg tablet 10 mg PO DAILY Qty: 30 1RF albuterol sulfate [Ventolin HFA] 90 mcg/actuation HFA aerosol inhaler inhalation loratadine 10 mg tablet 10 mg PO DAILY famotidine 20 mg tablet 20 mg PO BID Qty: 60 6RF Referrals: Areli Elam, DIRECTOR OF MATERIALS MANAGEMENT [Primary Care Provider] - 2 days Discharge Date/Time: 10/24/23 12:10 Print Language: Kinyarwanda
[2023-10-24 09:15] LABS: Basophils Percent Auto 0.3 % (0-2); Eosinophils Absolute Auto 0.1 X10*3/uL (0.0-0.4); Eosinophils Percent Auto 1.8 % (0-4); Hematocrit 31.3 % (37.0-47.0); Hemoglobin 10.7 g/dl (12.0-16.0); Imm Gran Abs Auto 0.02 X10*3/uL (0.00-0.03); Imm Gran Pct Auto 0.6 % (0.0-0.4); Lymphocytes Absolute Auto 0.7 X10*3/uL (1.2-4.9); Lymphocytes Percent Auto 20.6 % (20-40); Mean Corpuscular HGB Conc 34.2 g/dl (31.0-35.0); Mean Corpuscular Hemoglobin 36.4 pg (27.0-33.0); Mean Corpuscular Volume 106.5 fL (80.0-98.0); Mean Platelet Volume 8.4 fL (9.4-12.3); Monocytes Absolute Auto 0.3 X10*3/uL (0.1-1.2); Monocytes Percent Auto 9.8 % (2-11); Neutrophils Absolute Auto 2.2 x10*3/uL (2.0-8.3); Neutrophils Percent Auto 66.9 % (45-73); Platelet Count 151 X10*3/uL (160-400); Red Blood Count 2.94 X10*6/uL (4.20-5.50); Red Cell Distribution Width 14.3 % (11.0-16.0); White Blood Count 3.3 X10*3/uL (4.8-10.8)
[2023-10-24 09:22] LABS: INTERNATIONAL NORM RATIO 1.1 (0.9-1.1); Prothrombin Time 13.9 SEC (11.1-13.3)
[2023-10-24 09:34] LABS: Alanine Aminotransferase 16 U/L (0-31); Albumin Level 3.7 g/dL (3.5-5.0); Alkaline Phosphatase 59 U/L (39-117); Anion Gap 13 (12-20); Aspartate Amino Transferase 20 U/L (5-31); Bilirubin Total 0.5 mg/dL (0.0-1.0); Blood Urea Nitrogen 17 mg/dL (9-16); Carbon Dioxide 22 mmol/L (22-29); Chloride 110 mmol/L (96-108); Creatinine Clr Calc Pharmacy 58.5; Estimated Glomerular Filt Rate 58; Glucose Random 218 mg/dL (60-115); Magnesium 1.6 mg/dL (1.6-2.6); Potassium 4.5 mmol/L (3.3-5.1); Sodium 140 mmol/L (135-145); Total Protein 6.4 g/dL (6.5-8.0)
[2023-10-24 10:49] VITALS: BP 144/57; PULSE 75; RESP 14; TEMP 36.8; O2SAT 97
[2023-10-24 11:02] LABS: Appearance Urine Clear; Color Urine Yellow; Glucose Urine UA Negative (Negative); Leukocyte Esterase Urine Negative (Negative); Nitrite Urine Negative (Negative); Specific Gravity - Urine 1.015 (1.005-1.025); UMIC TRIGGER UACC YES; Urine Blood Negative (Negative); Urine Ketones Negative (Negative); Urine Protein 30 (1+) mg/dL (Neg-Trace)
[2023-10-24 11:05] LABS: Bacteria Urine None Seen (None Seen); Hyaline Casts Urine 0-2 /LPF (0-2); RBC Urine 0-2 /HPF (0-2); Squamous Epithelial Cell Urine 0-2 /HPF (0-2); WBC Urine 0-5 /HPF (0-5)
[2023-10-24] MEDS: Lidocaine 4 % Patch ADH..PATCH 1 PATCH TRANSDERMA (11:45)
[2023-10-24] MEDS: Acetaminophen 325 MG TABLET 975 MG PO (11:45)
[2023-10-24 11:50] VITALS: BP 151/68; PULSE 78; RESP 16; TEMP 36.2; O2SAT 98
== END 2023-10-24 12:10 | disposition home or self-care (01) ==
PROVIDERS: Physician Assistant; Emergency Provider Emergency Medicine Emergency Medical Services; PCP Nurse Practitioner Primary Care
DX: S30.0XXA Contusion of lower back and pelvis, initial encounter (principal); W10.9XXA Fall (on) (from) unspecified stairs and steps, initial encounter; Y93.89 Activity, other specified; Y92.008 Other place in unspecified non-institutional (private) residence as the place of occurrence of the external cause; Y99.9 Unspecified external cause status; E11.9 Type 2 diabetes mellitus without complications; I10 Essential (primary) hypertension; I48.0 Paroxysmal atrial fibrillation; C21.0 Malignant neoplasm of anus, unspecified; Z79.899 Other long term (current) drug therapy; Z79.4 Long term (current) use of insulin
CPT/HCPCS: 36415; 70450; 71250; 72125; 74176; 80053; 81001; 81003; 83735; 85025; 85610; 99284

== ENCOUNTER 2023-11-14 08:17 | Outpatient (REF) | payer OTHER, SELFPAY ==
[2023-11-14 12:25] LABS: Alanine Aminotransferase 14 U/L (0-31); Albumin Level 3.8 g/dL (3.5-5.0); Alkaline Phosphatase 51 U/L (39-117); Aspartate Amino Transferase 20 U/L (5-31); Bilirubin Direct 0.1 mg/dL (0.0-0.5); Bilirubin Total 0.3 mg/dL (0.0-1.0); Cholesterol 132 mg/dL (<200); HDL Cholesterol 52 mg/dL (>40); LDL Cholesterol Calculated 52 mg/dL (<100); Total Protein 6.6 g/dL (6.5-8.0); Triglycerides 143 mg/dL (<150)
[2023-11-14 14:21] LABS: Creatinine Urine 128.31 mg/dL; Microalbum/Creatinine Ratio Ur 53.7 ug/mg cr (<30)
== END 2023-11-14 08:18 | disposition home or self-care (01) ==
LOC: HO.HHCL 08:17
PROVIDERS: Visit Provider Nurse Practitioner Primary Care
DX: E11.65 Type 2 diabetes mellitus with hyperglycemia (principal)
CPT/HCPCS: 36415; 80061; 80076; 82043; 82570

== ENCOUNTER 2023-12-12 08:55 | Outpatient (AMB) | payer OTHER, SELFPAY ==
[2023-12-12 09:15] VITALS: BP 139/65; PULSE 67; BMI 33.6
--- NOTE | 2023-12-12 09:15 | A.OFFVIS_ITS ---
Vital Signs 12/12/23 09:15 Height 5 ft 3 in Weight 189 lb 9.561 oz BMI 33.6 BP 139/65 Blood Pressure Location Lt brachial Position Sitting Pulse 67 Intake Visit Reasons: 6 month follow up Intake Note: Zee presents to in office visit today in 6 month follow up of lower abdominal pain. CC: Patient states that after the radiation she was really sick, unable to stand and lost 40 pounds that she now has gained back. She states that she finished radiations on August. She c/o LLQ abdominal pain and constipation. [facility] Psych[facility]rist Required: No Accompanied by: Self / Same As Patient Allergies ibuprofen [IBUPROFEN] Allergy (Severe, Verified 12/12/23 09:29) SICK TO MY STOMACH ciprofloxacin [From CIPRO] Allergy (Intermediate, Verified 12/12/23 09:29) SICK doxycycline Allergy (Intermediate, Verified 12/12/23 09:29) Dizziness levofloxacin [From LEVAQUIN] Allergy (Intermediate, Verified 12/12/23 09:29) SICK , nausea, dizziness x days flu vaccine Allergy (Intermediate, Uncoded 10/24/23 07:47) Swelling HPI HPI 6 month follow up: Details: Assessment & Plan (1) GERD (gastroesophageal reflux disease): Code(s): K21.9 - Gastro-esophageal reflux disease without esophagitis Qualifiers: Esophagitis presence: with esophagitis (2) Gastroparesis: Comment: Patient could not tolerate Reglan so she is advised to eat smaller more frequent meals and should her condition worse we may need consider referral for consideration of gastric pacemaker at a tertiary center aeb Code(s): K31.84 - Gastroparesis (3) Anal squamous cell carcinoma: Code(s): C21.0 - Malignant neoplasm of anus, unspecified Plan She is here today with her dtr who is supportive. She has been referred to [facility] for beam radiation therapy, there may be some confusion regarding whether she should start the chemo now between [facility] oncology and Dr. Ty. Her dtr is concerned about the delay in tx, and I advise them to call both offices and get this clarified. She continues on famotidine and fiber with good control. Before she leaves her daughter says that the patient does not want to admit but she has been having lower abdominal pain. Apparently it is mostly over the suprapubic area and is not directly related to eating or moving her bowels. She can not really describe any exacerbating remitting factors. It seems that this could be bowel spasm related to the rectal cancer so I think will try a course of dicyclomine and see if this settles it for her. ROV 6 mos. Medications: New dicyclomine 10 mg PO QID 120 caps 3RF R10.9 - Unspecified abdominal pain famotidine 20 mg PO BID 60 tabs 6RF K21.9 - Gastro-esophageal reflux disease without esophagitis TODAY'S VISIT She really suffered with the radiation therapy for her rectal cancer. She had severe burning in her abdomen in her rectum with a lot of rectal discharge. She was so afraid to eat she lost 35 lb but she is now gaining. The reason she was afraid to eat is because moving her bowels was so severely painful in her rectum. However, she is recovered now. Had a PET scan - but I could not retrieve it from the website and she does not know the results. Continues to do well on her GI regimen. The famotidine in the dicyclomine are controlling her GERD in her IBS well. ROV 6 mos. [facility] Medical History Restrictive lung disease Dyspnea on exertion Smoking greater than 30 pack years CKD (chronic kidney disease) stage 3, GFR 30-59 ml/min Babesiasis Paroxysmal atrial fibrillation CAD (coronary artery disease) Asthma Diabetes Bronchitis Obesity (BMI 30-39.9) Vitamin D deficiency Osteopenia Dyslipidemia Hypertension Diabetic 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 GERD (gastroesophageal reflux disease) Surgical History Hx of cataract surgery Hx of foot surgery Hx of colonoscopy History of esophagogastroduodenoscopy (EGD) Family History Father Heart failure Diabetes mellitus Mother Cholangiocarcinoma Diabetes mellitus Family history of hypertension Family history of heart attack Brother Lung cancer Family/Other Breast cancer Sister Social History Household Members: Family Housing: House Do you presently have visiting nurse or other home services: No Alcohol intake: current Alcohol intake frequency: a few times a month Alcohol type: beer Patient Tobacco Use Status: Former Tobacco user Tobacco use type: Cigarette Years Smoked: 45 e-Cigarette/Vaping Use: Never Used Advance Directives Date on File: 10/19/22 service: No Current occupational status: unemployed Review of Systems Const Denies fatigue, Denies fever(s), Denies night sweats, Denies poor appetite, Reports weight gain and Reports weight loss ENT Reports Normal hearing present, Denies dental pain, Denies dysphagia, Denies hearing loss, Denies mouth pain, Denies odynophagia, Denies throat swelling, Denies tongue swelling and Reports other (Dentition adequate) Card Reports no additional complaints Resp Reports no additional complaints GI Details: Rectal pain with her radiation/radiation proctitis that has resolved Denies abdominal pain, Denies melena, Denies bloating, Denies hematochezia, Denies constipation, Reports GI cramping, Denies dysphagia, Denies excessive flatus, Denies early satiety, Reports heartburn, Denies diarrhea, Denies nausea, Denies odynophagia, Denies vomiting and Denies hematemesis Skin/Breast Denies pruritus, Denies lesions, Denies rash and Denies jaundice Neuro Reports Normal hearing present and Denies Abnormal speech present Endo Denies fatigue Aller/Immun Denies throat swelling and Denies tongue swelling Physical Exam Vital Signs: Last Vital Signs Pulse 67 12/12/23 09:15 BP 139/65 12/12/23 09:15 BMI result Body Mass Index 33.6 Const General: cooperative, no acute distress, well developed and well groomed Nutritional Appearance: well nourished and obese Orientation/consciousness: oriented to person, oriented to place and oriented to time Limitations: No language barrier HEENT Head: Yes normocephalic and Yes atraumatic Eyes General: appearance normal, both eyes and all related structures Pupils: Equal, round and reactive pupils present Neck Neck: Yes normal visual inspection and Yes no lymphadenopathy Thyroid: Thyroid normal Resp Effort & Inspection: normal respiratory effort and able to speak in complete sentences Auscultation: clear to auscultation bilaterally Cardio Rate: regular rate Rhythm: regular rhythm Heart sounds: Normal, physiologic split S2 sound present Peripheral pulses: radial pulses present and posterior tibial pulses present GI Inspection: No distended, No Abdominal panniculus present and Yes obesity Palpation (GI): Soft to palpation, nontender, no guarding, not rigid and No hepatosplenomegaly present Percussion: Yes normal to percussion Auscultation: normal bowel sounds Rectal Exam - Female: deferred Skin General skin exam: no rashes or lesions noted, turgor normal, skin not dry, no jaundice, No spider nevi and no striae Rashes: no rashes Nails: normal Neuro General: oriented to person, oriented to place and oriented to time Cranial nerves: Yes Equal, round and reactive pupils present and Yes Normal hearing present Speech: No Abnormal speech present Extrem General: Yes normal to inspection, No clubbing, No cyanosis and No edema Psych Appearance: grossly normal and well kempt Mental Status: mental status grossly normal Speech and movement: Normal speech and movement present Affect: normal affect Attitude: cooperative Thought process: Normal thought process present and not confabulating Thought content: Normal thought content present Insight: Fair insight present (Psych) Judgement: Fair judgement present (Psych) Assessment & Plan Assessment & Plan (1) GERD (gastroesophageal reflux disease): Code(s): K21.9 - Gastro-esophageal reflux disease without esophagitis Category: Medical Qualifiers: Esophagitis presence: with esophagitis (2) Squamous cell carcinoma of anal canal: Code(s): C21.1 - Malignant neoplasm of anal canal Category: Medical Plan She really suffered with the radiation therapy for her rectal cancer. She had severe burning in her abdomen in her rectum with a lot of rectal discharge. She was so afraid to eat she lost 35 lb but she is now gaining. The reason she was afraid to eat is because moving her bowels was so severely painful in her rectum. However, she is recovered now. Had a PET scan - but I could not retrieve it from the website and she does not know the results. Continues to do well on her GI regimen. The famotidine in the dicyclomine are controlling her GERD in her IBS well. ROV 6 mos. Medications: Refilled famotidine 20 mg PO BID 60 tabs 6RF K21.9 - Gastro-esophageal reflux disease without esophagitis dicyclomine 10 mg PO QID 360 caps 1RF R10.9 - Unspecified abdominal pain Coding Level of Care Code Est Pt Level 3 (76042) Diagnoses GERD (gastroesophageal reflux disease) K21.9 Esophagitis presence: with esophagitis Squamous cell carcinoma of anal canal C21.1
== END 2023-12-12 10:02 | disposition home or self-care (01) ==
PROVIDERS: PCP Nurse Practitioner Primary Care; Visit Provider Nurse Practitioner
DX: K21.9 Gastro-esophageal reflux disease without esophagitis (principal); C21.1 Malignant neoplasm of anal canal
CPT/HCPCS: 99213

== ENCOUNTER → 2023-12-12 08:55 | Outpatient (BNVA) | payer OTHER, SELFPAY | PROVIDERS: PCP Nurse Practitioner Primary Care; Visit Provider Nurse Practitioner | DX: C21.1 Malignant neoplasm of anal canal (principal); K21.9 Gastro-esophageal reflux disease without esophagitis; K31.84 Gastroparesis | CPT/HCPCS: 99212 ==

== ENCOUNTER 2024-01-04 08:46 | Emergency (ER) | payer OTHER, SELFPAY ==
--- NOTE | ~2024-01-04 | XR_ITS ---
EXAMINATION: XR CHEST CLINICAL INFORMATION: Chest pain and cough COMPARISON: Chest radiograph 09/19/2023 TECHNIQUE: 2 views of the chest were obtained. FINDINGS: No significant abnormality is noted involving the heart, lungs, mediastinum, bony thorax or soft tissues. XR/XR chest 2V IMPRESSION: Unremarkable examination. Electronically signed by: Kofi Peters MD 01/04/2024 11:31 AM EDT RP
--- NOTE | 2024-01-04 08:51 | ECG_ITS ---
Test Reason : chest pain Blood Pressure : / mmHG Vent. Rate : 075 BPM Atrial Rate : 075 BPM P-R Int : 156 ms QRS Dur : 084 ms QT Int : 382 ms P-R-T Axes : 029 003 054 degrees QTc Int : 426 ms Normal sinus rhythm Normal ECG When compared with ECG of 14-AUG-2023 21:25, CO interval has decreased Referred By: Generic ED Physician Electronically Signed By:PHIL SANTIZO
[2024-01-04 09:02] VITALS: BMI 32.8
[2024-01-04 09:09] VITALS: BP 144/75; PULSE 84; RESP 16; TEMP 37; O2SAT 98
[2024-01-04 09:14] LABS: MANUAL DIFF FLAG NO
[2024-01-04 09:16] LABS: Basophils Percent Auto 0.5 % (0-2); Eosinophils Absolute Auto 0.2 X10*3/uL (0.0-0.4); Eosinophils Percent Auto 2.9 % (0-4); Hematocrit 36.1 % (37.0-47.0); Hemoglobin 12.4 g/dl (12.0-16.0); Imm Gran Abs Auto 0.02 X10*3/uL (0.00-0.03); Imm Gran Pct Auto 0.3 % (0.0-0.4); Lymphocytes Absolute Auto 0.9 X10*3/uL (1.2-4.9); Lymphocytes Percent Auto 13.8 % (20-40); Mean Corpuscular HGB Conc 34.3 g/dl (31.0-35.0); Mean Platelet Volume 8.1 fL (9.4-12.3); Monocytes Absolute Auto 0.5 X10*3/uL (0.1-1.2); Monocytes Percent Auto 6.9 % (2-11); Neutrophils Absolute Auto 4.9 x10*3/uL (2.0-8.3); Neutrophils Percent Auto 75.6 % (45-73); Platelet Count 164 X10*3/uL (160-400); Red Blood Count 3.54 X10*6/uL (4.20-5.50); Red Cell Distribution Width 12.4 % (11.0-16.0); White Blood Count 6.5 X10*3/uL (4.8-10.8)
[2024-01-04 09:33] LABS: Anion Gap 12 (12-20); Blood Urea Nitrogen 21 mg/dL (9-16); Calcium 9.6 mg/dL (8.4-10.2); Carbon Dioxide 22 mmol/L (22-29); Chloride 111 mmol/L (96-108); Creatinine Clr Calc Pharmacy 58.1; Estimated Glomerular Filt Rate 56; Glucose Random 126 mg/dL (60-115); Potassium 4.3 mmol/L (3.3-5.1); Sodium 141 mmol/L (135-145)
--- NOTE | 2024-01-04 09:35 | ED_ITS ---
HPI - Chest Pain General Chief Complaint: Chest Pain Stated Complaint: [id number] Time Seen by Provider: 01/04/24 09:27 Source: patient Mode of arrival: ambulatory Limitations: no limitations History of Present Illness HPI narrative: 63 year old female with cough chest pain headache and body aches. PMH: afib on eliquis, squamous cell carcinoma GERD, obesity, type 2 DM, CAD, HTN seen here last week for back pain. She states the symptoms started last night. MD complaint: chest pain Related Data Home Medications ?Medication ?Instructions ?Recorded ?Confirmed sertraline 100 mg tablet 100 mg PO DAILY PRN Anxiety 02/26/20 10/03/23 blood sugar diagnostic (FreeStyle #10 ea 06/23/21 07/26/23 Lite Strips) glipizide 10 mg tablet 10 mg PO BID 10/24/22 10/03/23 insulin degludec 100 unit/mL (3 12 unit subcut DAILY 10/24/22 10/03/23 mL) subcutaneous pen (Tresiba FlexTouch U-100 insulin) albuterol sulfate 90 mcg/actuation inhalation 06/20/23 10/03/23 aerosol inhaler (Ventolin HFA) loratadine 10 mg tablet 10 mg PO DAILY 06/20/23 10/03/23 hydrocodone 5 mg-acetaminophen 325 tab PO 12/12/23 mg tablet prochlorperazine maleate 5 mg mg PO 12/12/23 tablet Previous Rx's ?Medication ?Instructions ?Recorded cholecalciferol (vitamin D3) 25 25 mcg PO DAILY #30 caps 04/04/21 mcg (1,000 unit) capsule ezetimibe 10 mg tablet 10 mg PO DAILY #30 tabs 06/23/21 lancets 28 gauge (FreeStyle #100 ea 06/23/21 Lancets) metformin 500 mg tablet,extended 1,000 mg (2 x 500 mg) PO BID #360 12/14/21 release 24 hr tabs rosuvastatin 40 mg tablet 40 mg PO DAILY #90 tabs 12/14/21 albuterol sulfate 2.5 mg/3 mL 2.5 mg (3 mL) inhalation QID PRN 01/08/22 (0.083 %) solution for nebulization shortness of breath or wheezing #75 mL capecitabine 500 mg tablet 1,500 mg (3 x 500 mg) PO BID #120 05/05/23 tabs magnesium oxide 400 mg PO DAILY #30 tabs 08/15/23 lisinopril 10 mg tablet 10 mg PO DAILY #30 tabs 10/03/23 cyclobenzaprine 10 mg tablet 10 mg PO BEDTIME PRN muscle spasm 10/24/23 #7 tabs lidocaine 5 % topical patch 1 patch topical DAILY PRN pain #15 10/24/23 ea diltiazem HCl 180 mg 180 mg PO DAILY #90 caps 11/21/23 capsule,extended release 24 hr famotidine 20 mg tablet 20 mg PO BID #60 tabs 12/12/23 dicyclomine 10 mg capsule 10 mg PO QID #360 caps 12/19/23 benzonatate 100 mg capsule 100 mg PO BID PRN cough #20 caps 01/04/24 Allergies Allergy/AdvReac Type Severity Reaction Status Date / Time ibuprofen [IBUPROFEN] Allergy Severe SICK TO Verified 01/04/24 09:04 MY STOMACH ciprofloxacin [From CIPRO] Allergy Intermediate SICK Verified 01/04/24 09:04 doxycycline Allergy Intermediate Dizziness Verified 01/04/24 09:04 levofloxacin [From LEVAQUIN] Allergy Intermediate SICK , Verified 01/04/24 09:04 nausea, dizziness x days flu vaccine Allergy Intermediate Swelling Uncoded 01/04/24 09:04 Review of Systems 2 Review of Systems: Review of systems: General: Patient denies any fever chills recent illness or falls Musculoskeletal: Denies back pain or body aches or other injuries HEENT: headache, denies runny nose, ear pain Respiratory: shortness of breath, cough Cardiovascular: chest pain no palpitations : denies dysuria, frequency Abdomen: no nausea vomiting denies abdominal pain Extremities: no swelling, no pain Skin: no diaphoresis Yes all other systems are reviewed and are negative PMFSH Past Medical History Medical History Restrictive lung disease Dyspnea on exertion Smoking greater than 30 pack years CKD (chronic kidney disease) stage 3, GFR 30-59 ml/min Babesiasis Paroxysmal atrial fibrillation CAD (coronary artery disease) Asthma Diabetes Bronchitis Obesity (BMI 30-39.9) Vitamin D deficiency Osteopenia Dyslipidemia Hypertension Diabetic 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 GERD (gastroesophageal reflux disease) Surgical History Hx of cataract surgery Hx of foot surgery Hx of colonoscopy History of esophagogastroduodenoscopy (EGD) Family History Family History Father Heart failure Diabetes mellitus Mother Cholangiocarcinoma Diabetes mellitus Family history of hypertension Family history of heart attack Brother Lung cancer Family/Other Breast cancer Sister Social History Social History Household Members: Family Housing: House Do you presently have visiting nurse or other home services: No Alcohol intake: current Alcohol intake frequency: a few times a month Alcohol type: beer Patient Tobacco Use Status: Former Tobacco user Tobacco use type: Cigarette Years Smoked: 45 e-Cigarette/Vaping Use: Never Used Advance Directives: Yes Advance Directives on File: Yes Advance Directives Date on File: 10/19/22 Do you have a plan to hurt others: No Plan service: No Current occupational status: unemployed Physical Exam 2 Vital Signs: Vital Signs: Last Vital Signs Temp 98.4 F 01/04/24 10:10 Pulse 70 01/04/24 10:10 Resp 17 01/04/24 10:10 BP 138/68 01/04/24 10:10 Pulse Ox 95 01/04/24 10:10 O2 Del Method Room Air 01/04/24 10:10 BMI result Body Mass Index 32.8 General: Well-appearing well-nourished in no signs of distress HEENT: Normocephalic atraumatic Neck: No signs of JVD, no masses no tenderness or lymphadenopathy Cardiovascular: Regular rate and rhythm Respiratory: Clear to auscultation bilaterally Abdomen: Soft nontender no masses Extremities: Normal pedal pulses no signs of edema Skin: Dry warm no rashes Back: No tenderness full ROM Course Course Course Narrative: COVID flu RSV x-ray labs and vitals all remained stable patient does not have a fever patient looks well she states she is not feeling any better after all that was given to her. There is no wheezing or signs of respiratory distress I do not see reason to keep her here with a negative workup explain this could be went to been many other viruses feel she is safe to follow up with her doctor. Medications Administered Generic Name Dose Route Start Last Admin Trade Name Freq PRN Reason Stop Dose Admin Sodium Chloride 1,000 mls @ 999 mls/hr 01/04/24 09:45 01/04/24 10:12 Ns IV 01/04/24 10:45 999 mls/hr .Q1H1M AMANDA Administration Discontinued Medications Generic Name Dose Route Start Last Admin Trade Name Anna PRN Reason Stop Dose Admin Acetaminophen 650 mg 01/04/24 09:40 01/04/24 10:13 Acetaminophen 325 Mg Tablet PO 01/04/24 09:41 650 mg ONCE ONE Administration Benzonatate 100 mg 01/04/24 09:40 01/04/24 10:13 Benzonatate 100 Mg Capsule PO 01/04/24 09:41 100 mg ONCE ONE Administration Ketorolac Tromethamine 15 mg 01/04/24 09:40 01/04/24 10:13 Ketorolac Tromethamine 30 Mg/Ml Vial IM 01/04/24 09:41 15 mg ONCE ONE Administration Medical Decision Making Medical Decision Making [facility] Narrative: I will check labs and XR and give medications for body aches and cough Differential Diagnosis Differential Diagnoses: The differential diagnosis associated with the presentation includes Cough pneumonia, influenza, covid, acs viral syndrome weakness dehydration Lab Data 01/04/24 09:04 01/04/24 09:04 Labs: Lab Results 01/04/24 01/04/24 Range/Units 09:04 09:12 WBC 6.5 (4.8-10.8) X10*3/uL RBC 3.54 L D (4.20-5.50) X10*6/uL Hgb 12.4 (12.0-16.0) g/dl Hct 36.1 L (37.0-47.0) % MCV 102.0 H (80.0-98.0) fL MCH 35.0 H (27.0-33.0) pg MCHC 34.3 (31.0-35.0) g/dl RDW 12.4 (11.0-16.0) % Plt Count 164 (160-400) X10*3/uL MPV 8.1 L (9.4-12.3) fL Immature Gran % (Auto) 0.3 (0.0-0.4) % Neut % (Auto) 75.6 H (45-73) % Lymph % (Auto) 13.8 L (20-40) % [place] % (Auto) 6.9 (2-11) % Eos % (Auto) 2.9 (0-4) % Baso % (Auto) 0.5 (0-2) % Lymph # (Auto) 0.9 L (1.2-4.9) X10*3/uL [place] # (Auto) 0.5 (0.1-1.2) X10*3/uL Eos # (Auto) 0.2 (0.0-0.4) X10*3/uL Baso # (Auto) 0.0 (0.0-0.2) X10*3/uL Abs Immat Gran (auto) 0.02 (0.00-0.03) X10*3/uL Absolute Neuts (auto) 4.9 (2.0-8.3) x10*3/uL Absolute Nucleated RBC 0.000 (0.0-0.012) X10*3/uL Nucleated RBC % (auto) 0.0 (0.0-0.2) /100WBC PT 12.7 H (10.9-12.4) SEC INR 1.1 (0.9-1.1) Sodium 141 (135-145) mmol/L Potassium 4.3 (3.3-5.1) mmol/L Chloride 111 H (96-108) mmol/L Carbon Dioxide 22 (22-29) mmol/L Anion Gap 12 (12-20) BUN 21 H (9-16) mg/dL Creatinine 0.99 (0.5-1.4) mg/dL Estim Creat Clear Calc 58.1 Estimated GFR 56 Random Glucose 126 H (60-115) mg/dL Calcium 9.6 D (8.4-10.2) mg/dL Troponin I High Sens < 2.7 (<3.5-17.0) ng/L Influenza Type A (PCR) NEGATIVE (Negative) Influenza Type B (PCR) NEGATIVE (Negative) RSV RNA Qual (PCR) NEGATIVE (Negative) SARS-CoV-2 RNA (RT-PCR) NEGATIVE (Negative) Discharge Plan Discharge Clinical Impression: Acute viral syndrome Patient Disposition: Home, Self-Care Instructions: Viral Syndrome (ED) Additional Instructions: You were seen today in the emergency department for cough headache fever and body aches. You had swabs x-ray and labs done which were all unremarkable. Please call follow up with her doctor if you have any other concerns please return to the emergency department. Prescriptions: New benzonatate 100 mg capsule 100 mg PO BID PRN (Reason: cough) Qty: 20 0RF No Action cholecalciferol (vitamin D3) 25 mcg (1,000 unit) capsule 25 mcg PO DAILY Qty: 30 11RF metformin 500 mg tablet extended release 24 hr 1,000 mg PO BID Qty: 360 1RF rosuvastatin 40 mg tablet 40 mg PO DAILY Qty: 90 1RF diltiazem HCl 180 mg capsule,extended release 24hr 180 mg PO DAILY Qty: 90 1RF dicyclomine 10 mg capsule 10 mg PO QID Qty: 360 1RF albuterol sulfate 2.5 mg /3 mL (0.083 %) solution for nebulization 2.5 mg inhalation QID PRN (Reason: shortness of breath or wheezing) Qty: 75 0RF capecitabine 500 mg Tablet 1,500 mg PO BID Qty: 120 2RF Rx Instructions: Take 1500 mg twice a day days 1-5/week, on days of radiation for 8 weeks. must administer with water 30 minutes after a meal magnesium oxide 400 mg magnesium tablet 400 mg PO DAILY Qty: 30 0RF cyclobenzaprine 10 mg tablet 10 mg PO BEDTIME PRN (Reason: muscle spasm) Qty: 7 0RF lidocaine 5 % adhesive patch,medicated 1 patch topical DAILY PRN (Reason: pain) Qty: 15 0RF Rx Instructions: leave on most painful area for up to 12 hrs glipizide 10 mg tablet 10 mg PO BID insulin degludec [Tresiba FlexTouch U-100] 100 unit/mL (3 mL) insulin pen 12 unit subcut DAILY (DME) FreeStyle Lite Strips Strip See Rx Instructions Not Applicable DAILY Qty: 10 Rx Instructions: As directed (DME) lancets [FreeStyle Lancets] 28 gauge misc See Rx Instructions .Route Qty: 100 3RF Rx Instructions: As directed 1x/daily ezetimibe 10 mg tablet 10 mg PO DAILY Qty: 30 11RF sertraline 100 mg tablet 100 mg PO DAILY PRN (Reason: Anxiety) lisinopril 10 mg tablet 10 mg PO DAILY Qty: 30 1RF albuterol sulfate [Ventolin HFA] 90 mcg/actuation HFA aerosol inhaler inhalation loratadine 10 mg tablet 10 mg PO DAILY hydrocodone-acetaminophen 5-325 mg tablet PO prochlorperazine maleate 5 mg tablet PO famotidine 20 mg tablet 20 mg PO BID Qty: 60 6RF Print Language: Belarusian
[2024-01-04 09:38] LABS: INTERNATIONAL NORM RATIO 1.1 (0.9-1.1); Prothrombin Time 12.7 SEC (10.9-12.4)
[2024-01-04 09:44] LABS: Troponin-I High Sensitivity < 2.7 ng/L (<3.5-17.0)
[2024-01-04 09:53] LABS: Influenza A PCR NEGATIVE (Negative); Influenza B PCR NEGATIVE (Negative); Resp Syncy Virus RNA Qual PCR NEGATIVE (Negative); SARS COV2 PCR INHOUSE NEGATIVE (Negative)
[2024-01-04 10:10] VITALS: BP 138/68; PULSE 70; RESP 17; TEMP 36.9; O2SAT 95
[2024-01-04] MEDS: 0.9 % Sodium Chloride 1,000 ML 999 ML IV (10:12)
[2024-01-04] MEDS: Acetaminophen 325 MG TABLET 650 MG PO (10:13)
[2024-01-04] MEDS: Benzonatate 100 MG CAPSULE PO (10:13)
[2024-01-04] MEDS: Ketorolac Tromethamine 30 MG/ML VIAL 15 MG IM (10:13)
--- OUTSIDE RECORDS SUMMARY | 2024-01-04 10:32 | XMS_ITS | Continuity of Care Document ---
Author Organization [facility] Address [address] [place] [id number]- Care Team Providers Care Quality Systems Specialist Name Role Phone Papa [employer], Areli Boland Primary Care Physician [phone] Encounter [facility] [id number] Date(s): 10/19/23 - 11/18/23 [facility] [address] [place] [id number]- [place] Allergies, Adverse Reactions, Alerts Substance Reaction Severity [...] tablet, 0 Refills,Maintenance, 09/13/23 15:04:00 EDT, Tablet, [facility]/pharmacy #[id number], Did not tolerate oxycodone due to skin [...] Date: 04/15/21 Status: Ordered DilTIAZem (Eqv-Cardizem CD) 180 mg/24 [...] drug. Start Date: 08/17/23 Status: Ordered lisinopril 10 mg oral tablet 90 each, 0 Refill(s), TOME 1 TABLETA POR V A ORAL TODOS LOS D , Refills 0, 11/13/23 15:53:00 EDT,Partial fill upon patient request if the prescription is for a schedule II opioid drug. Start Date: 11/13/23 Status: Ordered lisinopril 40 mg oral tablet [...] opioid drug. Start Date: 04/15/21 Status: Ordered magnesium oxide 400 mg oral tablet 1 tablet = 400 mg, By Mouth, Daily, # 30 tablet, 1 Refills, Maintenance, 10/10/23 14:42:00 EDT, [facility]/pharmacy #[id number], Partial fill upon patient request if the prescription is for a schedule II opioid drug., 160, cm, 09/25/23 13:17:00 EDT, Height, 83.1,... Start Date: 10/10/23 Status: Ordered metFORMIN 500 mg oral tablet [...] Refills, Maintenance, 07/13/23 11:43:00 EDT, DIS Tablet, [facility]/pharmacy #[id number], Partial fill upon patient request if the prescription is for a schedule II opioid... Start Date: 07/13/23 Status: Ordered prochlorperazine 5 mg oral tablet 1 tablet = 5 mg, By Mouth, Every 6 hours, PRN Nausea & Vomiting, # 30 tablet, 0 Refills, Maintenance, 07/13/23 11:43:00 EDT, Tablet, [facility]/pharmacy #[id number], Partial fill upon patient request if [...] Team Personnel Name: Kate Nieves RN Position: [facility] RN Member Role: Primary Care Nurse Name: Laura Cardozo RN Position: [facility] RN Member Role: Primary Care Nurse Name: Patricia Upton RN Position: [facility] RN Member Role: Primary Care Nurse Name: Hanny Muniz RN Position: [facility] Onco RN Member Role: Primary Care Nurse Name: Areli Elam NP Position: [facility] Outreach Member Role: PCP Address: Address: [address] [place] [phone]- Care Team Related Persons Name: NITO ROGERS Address: [address] [place] [id number]
--- OUTSIDE RECORDS SUMMARY | 2024-01-04 10:32 | XMS_ITS | Continuity of Care Document ---
Author Organization [facility] ter Address [address] [place] [address]- Care Team Providers Care Collar Padder Blindstitch Name Role Phone Areli Elam NP Primary Care Physician [phone] Encounter 12/25/23 - 12/26/23 [facility] [address] [place] [address] Attending Physician: Not on Staff, Attending MD Referring Physician: Not on Staff, Referring MD Allergies, Adverse Reactions, Alerts Substance Reaction Severity Status ciprofloxacin 1 Active doxycycline Active Motrin 2 Active OxyCODONE Hydrochloride pruritis of skin Persistent Mo derate Active levoFLOXacin 3 Active Influenza Virus Vaccine 4, 5 Active 1vomit, dizziness, itchy 2vomit dizziness, itchy 3vomit, dizziness 4from ear to fingers 5redness and swelling to side of inection Medications acetaminophen-HYDROcodone 325 mg-5 mg oral tablet 1 tablet, By Mouth, Every 6 hours, PRN for pain, Discontinue oxycodone use, # 30 tablet, 0 Refills,Maintenance, 09/13/23 15:04:00 EDT, Tablet, [id number], Did not tolerate oxycodone due to skin [...] tablet, 1 Refills, Maintenance, 10/10/23 14:42:00 EDT, [facility]/pharmacy #[id number], Partial fill upon patient request [...] Refills, Maintenance, 07/13/23 11:43:00 EDT, DIS Tablet, [facility]/pharmacy #[id number], Partial fill upon patient request if the prescription is for a schedule II opioid... Start Date: 07/13/23 Status: Ordered prochlorperazine 5 mg oral tablet 1 tablet = 5 mg, By Mouth, Every 6 hours, PRN Nausea & Vomiting, # 30 tablet, 0 Refills, Maintenance, 07/13/23 11:43:00 EDT, Tablet, [facility]/pharmacy #[id number], Partial fill upon patient request [...] opioid drug. Start Date: 04/15/21 Status: Ordered silver sulfADIAZINE 1% topical cream See Instructions, APPLY TO AFFECTED AREA TWICE A DAY AFTER CLEANING, # 85 Gm, 1 Refills, Maintenance, 12/18/23 7:46:00 EDT, [facility], 30, APPLY TO AFFECTED AREA TWICE A DAY AFTER CLEANING, 160, cm, 12/13/23 11:22:00 EDT, Height, 86.2, kg, 12/12... 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 Recent PET/CT demonstrated new FDG uptake in the region of the vagina, possibly representing vaginal inflammation, versus tumoral involvement. COMPARISON: 05/11/2023 MRI pelvis. 2023 PET/CT. TECHNIQUE: Rectal mass protocol utilized. 17 cc of Dotarem contrast given IV. Rectal and vaginal gel were administered. FINDINGS: RECTUM AND ANUS: Previously seen mass at the anorectal junction has completely resolved, with no abnormal T2 signal, or abnormal enhancement at its prior location. VAGINA: The vagina as well distended with gel and appears normal, with no discrete lesions. No evidence of a rectovaginal fistula. Triangular-shaped shaped, symmetric area of prominent perirectal fat is seen protruding more inferiorly and anteriorly towards the inferior vagina than seen on the prior study (image 16 series 2, image 21, 22 series 5) possibly representing treatment-related inflammation, but without a discrete mass in this location. This area is not contiguous with prior site of treated tumor. No fistula is seen. UTERUS: Prior hysterectomy. OVARIES: Normal in size. Several small follicles noted. No suspicious focal lesion. BOWEL: Colonic diverticulosis within the imaged sigmoid colon. BLADDER: Underdistended. No wall thickening, luminal gas or other filling defect. Mild left hydroureter, similar to prior study. LYMPH NODES: Prominent right external iliac chain lymph node measuring 0.7 cm, unchanged. 0.6 cm right inguinal lymph node, unchanged. FREE FLUID: No intraperitoneal or extraperitoneal fluid. BONES: No acute fracture or dislocation. No suspicious osseous lesion. IMPRESSION: 1. Complete resolution of previously seen malignancy at the anorectal junction. No residual enhancing tumor or signal abnormality are seen in this location. 2. Vagina appears normal. No evidence of vaginal tumor or fistula. Prominent perirectal fat somewhat protruding anteriorly towards the inferior vagina is new from prior study, but is probably treatment related. 3. Prominent right external iliac chain lymph node, unchanged. No new lymphadenopathy. Thank you for allowing me to participate in the care of this patient. Electronically Signed By: Wseton Galvez MD Dictated By: Not on Staff , PHILIP MURILLO Dictated Date/Time: 12/26/23 1:04 pm Reviewed By: Not on Staff , PHILIP MURILLO Signed By: Not on Staff , PHILIP MURILLO Signed Date/Time: 12/26/23 1:04 pm Transcribed By: TS Transcribed Date/Time: 12/26/23 1:04 pm Social History Social History Type Response Smoking Status Former smoker, quit more than 30 days ago entered on: 09/11/23 Sex Patient Care team information Care Team Personnel Name: Kate Nieves RN Position: [facility] RN Member Role: Primary Care Nurse Name: Laura Cardozo RN Position: S RN Member Role: Primary Care Nurse Name: Patricia Upton RN Position: S RN Member Role: Primary Care Nurse Name: Hanny Muniz RN Position: [facility] Onco RN Member Role: Primary Care Nurse Name: Areli Elam NP Position: [facility] Outreach Member Role: PCP Address: Address: [address] [place] [address]- Care Team Related Persons Name: NITO ROGERS Address: [address] [address]
--- OUTSIDE RECORDS SUMMARY | 2024-01-04 10:32 | XMS_ITS | Continuity of Care Document ---
Author Organization [facility] Cardiology Address [address] [place] [address]- Care Team Providers Care Assembler For Puller Over Machine Name Role Phone Papa FARMER, Areli Boland Primary Care Physician Encounter [facility] [id number] Date(s): 11/09/23 - 12/09/23 [facility] [address] [place] [address]- Attending Physician: Melly Law Admitting Physician: AdmMelly oconnor Referring Physician: AdmtrMelly Allergies, Adverse Reactions, Alerts Substance Reaction Severity Status ciprofloxacin 1 Active doxycycline Active Influenza Virus Vaccine 2, 3 Active OxyCODONE Hydrochloride pruritis of skin Persistent Mo derate Active levoFLOXacin 4 Active Motrin 5 Active 1vomit, dizziness, itchy 2from ear to fingers 3redness and swelling to side of inection 4vomit, dizziness 5vomit dizziness, itchy Medications acetaminophen-HYDROcodone 325 mg-5 mg oral tablet 1 tablet, By Mouth, Every 6 hours, PRN for pain, Discontinue oxycodone use, # 30 tablet, 0 Refills,Maintenance, 09/13/23 15:04:00 EDT, Tablet, [facility]/pharmacy #[id number], Did not tolerate oxycodone due to skin [...] tablet, 1 Refills, Maintenance, 10/10/23 14:42:00 EDT, [facility]/pharmacy #[id number], Partial fill upon patient request [...] Refills, Maintenance, 07/13/23 11:43:00 EDT, DIS Tablet, [facility]/pharmacy #[id number], Partial fill upon patient request if the prescription is for a schedule II opioid... Start Date: 07/13/23 Status: Ordered prochlorperazine 5 mg oral tablet 1 tablet = 5 mg, By Mouth, Every 6 hours, PRN Nausea & Vomiting, # 30 tablet, 0 Refills, Maintenance, 07/13/23 11:43:00 EDT, Tablet, [facility]/pharmacy #[id number], Partial fill upon patient request [...] 30 days ago entered on: 09/11/23 Sex Cardiology * Event Display: EKG Non Authored Date: * Event Display: EKG Non Authored Date: * Event Display: Cardiology Office Note, Non- Authored Date: * Event Display: Non Cardiovascular Results Authored Date: Radiology * Event Display: CT Scan Chest, Non- Authored Date: * Event Display: [place] Nuclear Medicine, Non- Authored Date: Patient Care team information Care Team Personnel Name: Kate Nieves RN Position: S RN Member Role: Primary Care Nurse Name: Laura Cardozo RN Position: [facility] RN Member Role: Primary Care Nurse Name: Patricia Upton RN Position: [facility] RN Member Role: Primary Care Nurse Name: Hanny Muniz RN Position: [facility] Onco RN Member Role: Primary Care Nurse Name: Areli Elam NP Position: [facility] Outreach Member Role: PCP Address: Address: [address] [place] [address]- Care Team Related Persons Name: NITO ROGERS Address: [address] [address]
--- OUTSIDE RECORDS SUMMARY | 2024-01-04 10:32 | XMS_ITS | Continuity of Care Document ---
Author Organization [facility] ter Address [address] [place] [address]- Care Team Providers Care Cone Cleaner Name Role Phone Areli Elam NP Primary Care Physician [phone] Encounter 12/04/23 - 12/05/23 [facility] [address] [place] [id number] Attending Physician: Not on Staff, Attending MD [...] 0 Refills,Maintenance, 09/13/23 15:04:00 EDT, Tablet, [id number], Did not tolerate oxycodone due to skin [...] tablet, 1 Refills, Maintenance, 10/10/23 14:42:00 EDT, [facility]/pharmacy #[id number], Partial fill upon patient request if [...] Maintenance, 07/13/23 11:43:00 EDT, DIS Tablet, [facility]/pharmacy #[id number], Partial fill upon patient request if the prescription is for a schedule II opioid... Start Date: 07/13/23 Status: Ordered prochlorperazine 5 mg oral tablet 1 tablet = 5 mg, By Mouth, Every 6 hours, PRN Nausea & Vomiting, # 30 tablet, 0 Refills, Maintenance, 07/13/23 11:43:00 EDT, Tablet, [facility]/pharmacy #[id number], Partial fill upon patient request if [...] Team Personnel Name: Kate Nieves RN Position: [facility] RN Member Role: Primary Care Nurse Name: Laura Cardozo RN Position: S RN Member Role: Primary Care Nurse Name: Patricia Upton RN Position: [facility] RN Member Role: Primary Care Nurse Name: Hanny Muniz RN Position: [facility] Onco RN Member Role: Primary Care Nurse Name: Areli Elam NP Position: [facility] Outreach Member Role: PCP Address: Address: [address] [place] [address], [place] [address]- Care Team Related Persons Name: NITO ROGERS Address: home [address] [place] [id number]
--- OUTSIDE RECORDS SUMMARY | 2024-01-04 10:32 | XMS_ITS | Continuity of Care Document ---
Author Organization [facility] Address [address] [place] [address] [address] [place] [address]- Care Team Providers Care Cv Rn Name Role Phone Papa MOTOR EXPERT, Areli Boland Primary Care Physician Encounter [facility] [place] Date(s): 11/13/23 - 11/20/[address] [place] [address]- Encounter Diagnosis Anal cancer(Discharge Diagnosis) - 11/13/23 Attending Physician: Merritt Montoya MD Allergies, Adverse Reactions, Alerts Substance Reaction [...] tablet, 0 Refills,Maintenance, 09/13/23 15:04:00 EDT, Tablet, [facility]/pharmacy #[id number], Did not tolerate oxycodone due to skin [...] tablet, 1 Refills, Maintenance, 10/10/23 14:42:00 EDT, [facility]/pharmacy #[id number], Partial fill upon patient request if [...] Refills, Maintenance, 07/13/23 11:43:00 EDT, DIS Tablet, [facility]/pharmacy #[id number], Partial fill upon patient request if the prescription is for a schedule II opioid... Start Date: 07/13/23 Status: Ordered prochlorperazine 5 mg oral tablet 1 tablet = 5 mg, By Mouth, Every 6 hours, PRN Nausea & Vomiting, # 30 tablet, 0 Refills, Maintenance, 07/13/23 11:43:00 EDT, Tablet, [facility]/pharmacy #[id number], Partial fill upon patient request if [...] danette Service Informant Anal cancer Discharge Diagnosis 11/13/23 Vital Signs Most recent to oldest [Reference Range]: 1 Height 160 cm (11/13/23 3:54 PM) Weight 85.4 kg (11/13/23 3:54 PM) Oxygen Saturation [94-100 %] 97 % (11/13/23 3:54 PM) Pulse Rate [55-90 bpm] 67 bpm (11/13/23 3:54 PM) Body Mass Index [18.5-24.99 kg/m2] 33.36 kg/m2 *>HHI* (11/13/23 3:54 PM) Blood Pressure [90-138/55-84 mm Hg] 122/ 41mm Hg (11/13/23 3:54 PM) Temperature [96.8-100.4 DegF] 97.7 DegF (11/13/23 3:54 PM) Blood pressure sites Arm, left (11/13/23 3:54 PM) Temperature Route Temporal (11/13/23 3:54 PM) Weight Obtained Via Standing scale (11/13/23 3:54 PM) Social History Social History Type Response Smoking Status Former smoker, quit more than 30 days ago entered on: 09/11/23 Sex Patient Care team information Care Team Personnel Name: Ezequiel FAJARDO, Kate Benoit Position: [facility] RN Member Role: Primary Care Nurse Name: Laura Cardozo RN Position: S RN Member Role: Primary Care Nurse Name: Patricia Upton RN Position: S RN Member Role: Primary Care Nurse Name: Hanny Muniz RN Position: [facility] Onco RN Member Role: Primary Care Nurse Name: Areli Elam NP Position: [facility] Outreach Member Role: PCP Address: Address: [address] [place] [address]- Care Team Related Persons Name: NITO ROGERS Address: home [address] [place] [address]
--- OUTSIDE RECORDS SUMMARY | 2024-01-04 10:32 | XMS_ITS | Continuity of Care Document ---
Author Organization [facility] Cardiology Address [address] [place] [address]- Care Team Providers Care Boil Off Machine Operator Cloth Name Role Phone Papa CARGO SUPERVISOR, Areli Boland Primary Care Physician Encounter [facility] [place] Date(s): 10/04/23 - 11/03/23 [facility] [address] [place] [address]- [place] Allergies, Adverse Reactions, Alerts Substance Reaction [...] tablet, 0 Refills,Maintenance, 09/13/23 15:04:00 EDT, Tablet, [facility]/pharmacy #[id number], Did not tolerate oxycodone due to skin [...] 1 Refills, Maintenance, 10/10/23 14:42:00 EDT, [facility]/pharmacy #[id number], Partial fill upon patient [...] Maintenance, 07/13/23 11:43:00 EDT, DIS Tablet, [facility]/pharmacy #[id number], Partial fill upon patient request if the prescription is for a schedule II opioid... Start Date: 07/13/23 Status: Ordered prochlorperazine 5 mg oral tablet 1 tablet = 5 mg, By Mouth, Every 6 hours, PRN Nausea & Vomiting, # 30 tablet, 0 Refills, Maintenance, 07/13/23 11:43:00 EDT, Tablet, [facility]/pharmacy #[id number], Partial fill upon patient [...] Team Personnel Name: Kate Nieves RN Position: [facility] RN Member Role: Primary Care Nurse Name: Laura Cardozo RN Position: S RN Member Role: Primary Care Nurse Name: Patricia Upton RN Position: [facility] RN Member Role: Primary Care Nurse Name: Hanny Muniz RN Position: [facility] Onco RN Member Role: Primary Care Nurse Name: Areli Elam NP Position: [facility] Outreach Member Role: PCP Address: Address: [address] [place] [address]- Care Team Related Persons Name: NITO ROGERS Address: home [address] [place] [address]
[2024-01-04 12:01] VITALS: BP 138/50; PULSE 66; RESP 16; TEMP 36.7; O2SAT 97
== END 2024-01-04 12:02 | disposition home or self-care (01) ==
PROVIDERS: Emergency Provider Student in an Organized Health Care Education/Training Program; PCP Nurse Practitioner Primary Care
DX: B34.9 Viral infection, unspecified (principal); R07.89 Other chest pain; R05.9 Cough, unspecified; R51.9 Headache, unspecified; M79.10 Myalgia, unspecified site; I48.91 Unspecified atrial fibrillation; E11.9 Type 2 diabetes mellitus without complications; I25.10 Atherosclerotic heart disease of native coronary artery without angina pectoris; I10 Essential (primary) hypertension; Z79.01 Long term (current) use of anticoagulants; Z79.899 Other long term (current) drug therapy; Z03.818 Encounter for observation for suspected exposure to other biological agents ruled out
CPT/HCPCS: 0241U; 36415; 71046; 80048; 84484; 85025; 85610; 93005; 96360; 96372; 99284; J1885

== ENCOUNTER 2024-01-09 10:12 | Outpatient (AMB) | payer OTHER, SELFPAY ==
--- NOTE | 2024-01-09 10:25 | MHC.OFFVIS ---
Vital Signs 01/09/24 10:26 Height 5 ft 3 in Weight 187 lb 6.287 oz BMI 33.2 BP 120/58 L Blood Pressure Location Lt brachial Position Sitting Pulse 74 Pulse Source Pulse Oximeter Pulse Oximetry (%) 96 Oxygen Delivery Method Room Air Intake Visit Reasons: copd Intake Note: pt is here for follow up and states she is coughing, in hospital last week HH, today still coughing with production, yellow in color. pt was dx with anal cancer and had 2 rounds of chemo so far. Clothing Man Required: No Allergies ibuprofen [IBUPROFEN] Allergy (Severe, Verified 01/09/24 10:41) SICK TO MY STOMACH ciprofloxacin [From CIPRO] Allergy (Intermediate, Verified 01/09/24 10:41) SICK doxycycline Allergy (Intermediate, Verified 01/09/24 10:41) Dizziness levofloxacin [From LEVAQUIN] Allergy (Intermediate, Verified 01/09/24 10:41) SICK , nausea, dizziness x days flu vaccine Allergy (Intermediate, Uncoded 01/09/24 10:41) Swelling Medication List - Last Reconciled 01/09/24 by Kwame Martinez MD albuterol sulfate 2.5 mg (3 mL) inhalation QID PRN albuterol sulfate 90 mcg/actuation (Ventolin HFA) inhalation benzonatate 100 mg PO BID PRN blood sugar diagnostic (FreeStyle Lite Strips) As directed cholecalciferol (vitamin D3) 25 mcg PO DAILY dicyclomine 10 mg PO QID diltiazem HCl CD 180 mg PO DAILY ezetimibe 10 mg PO DAILY famotidine 20 mg PO BID glipizide 10 mg PO BID insulin degludec (Tresiba FlexTouch U-100 insulin) 12 units subcut DAILY lancets (FreeStyle Lancets) As directed 1x/daily lisinopril 10 mg PO DAILY loratadine 10 mg PO DAILY magnesium oxide 400 mg PO DAILY metformin ER 1,000 mg (2 x 500 mg) PO BID prochlorperazine maleate mg PO rosuvastatin 40 mg PO DAILY sertraline 100 mg PO DAILY PRN Do you need a note to return to daycare/school/sports/work: No HPI HPI copd: Details: This 63 years old female does have mild obstructive airway disorder, she has been using albuterol inhaler or the nebulizer only p.r.n. She has been sick for the last 2 weeks with nasal congestion postnasal discharge and cough. She was treated in the hospital last week, without any antibiotics. Chest x-ray was negative. She was discharged home on symptomatic treatment. Today she comes to the office complaining of mucopurulent phlegm coming out, by cough or when she blows her nose. She still feels congested is in the sinuses and nasopharynx. No fever or chills. Currently being treated for Anal squamous cell carcinoma. [facility] Medical History (Updated 01/09/24 @ 10:55 by Kwame Martinez MD) Acute rhinosinusitis Restrictive lung disease Dyspnea on exertion Smoking greater than 30 pack years CKD (chronic kidney disease) stage 3, GFR 30-59 ml/min Babesiasis Paroxysmal atrial fibrillation CAD (coronary artery disease) Asthma Diabetes Bronchitis Obesity (BMI 30-39.9) Vitamin D deficiency Osteopenia Dyslipidemia Hypertension Diabetic 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 GERD (gastroesophageal reflux disease) Surgical History Hx of cataract surgery Hx of foot surgery Hx of colonoscopy History of esophagogastroduodenoscopy (EGD) Family History Father Heart failure Diabetes mellitus Mother Cholangiocarcinoma Diabetes mellitus Family history of hypertension Family history of heart attack Brother Lung cancer Family/Other Breast cancer Sister Social History Household Members: Family Housing: House Do you presently have visiting nurse or other home services: No Alcohol intake: current Alcohol intake frequency: a few times a month Alcohol type: beer Patient Tobacco Use Status: Former Tobacco user Tobacco use type: Cigarette Years Smoked: 45 e-Cigarette/Vaping Use: Never Used Advance Directives Date on File: 10/19/22 service: No Current occupational status: unemployed Review of Systems Const All systems reviewed & are unremarkable except as noted in HPI and below Eyes Reports no additional complaints ENT Reports no additional complaints Card Denies chest pain, Denies irregular heart rhythm and Denies leg edema Resp Reports as per HPI GI Reports constipation Reports no additional complaints Musc Reports no additional complaints Skin/Breast Reports system reviewed and no additional complaints, except as documented Neuro Reports no additional complaints Psych Reports no additional complaints Endo Reports other (Diabetes mellitus) Zachery/Lymph Reports no additional complaints Aller/Immun Reports no additional complaints Physical Exam Vital Signs: Last Vital Signs Pulse 74 01/09/24 10:26 BP 120/58 L 01/09/24 10:26 Pulse Ox 96 01/09/24 10:26 Oxygen Delivery Method Room Air 01/09/24 10:26 BMI result Body Mass Index 33.2 Const General: healthy appearing (Except for being overweight), comfortable, no acute distress, alert and awake Orientation/consciousness: patient oriented x3 HEENT Head: Yes normal to inspection General nose exam: No nasal polyps present and nasal discharge present (She does have some mucopurulent secretions in the nasopharynx) Face and sinus: Yes sinuses nontender Throat: No posterior oropharynx normal (Mucopurulent discharge in nasopharynx) Eyes General: appearance normal, both eyes and all related structures Neck Neck: Yes normal visual inspection, Yes no lymphadenopathy, Yes trachea midline and Yes no JVD Thyroid: Thyroid normal Chest Chest palpation & inspection: normal inspection of the chest, normal palpation of entire chest wall and no tenderness Resp Effort & Inspection: normal respiratory effort Auscultation: clear to auscultation bilaterally, no crackles and no wheezes Cardio Palpation: normal PMI Rate: regular rate Rhythm: regular rhythm Heart sounds: no gallops and no murmurs GI Palpation (GI): Soft to palpation, nontender, No hepatosplenomegaly present and no masses Auscultation: normal bowel sounds Back/Spine/Pelvis Thoracic/Lumbar Spine: thoracic and lumbar spine normal to inspection Skin General skin exam: no rashes or lesions noted Neuro General: patient oriented x3 and no focal motor deficits Cranial nerves: Yes CN's II-XII intact bilaterally Extrem General: Yes normal to inspection, Yes no clubbing, cyanosis or edema and Yes no calf tenderness Psych Appearance: grossly normal and well kempt Speech and movement: Normal speech and movement present Assessment & Plan Assessment & Plan (1) Restrictive lung disease: Comment: PER PFT SHE HAS MILD RESTRICTIVE DISORDER WHICH IS DUE TO HER OBESITY. Code(s): J98.4 - Other disorders of lung Category: Medical Plan: Continue doing deep breathing exercises (2) Smoking greater than 30 pack years: Comment: Patient gives history of smoking actually for about 50 years, 1 pack a day. Luckily she did quit 2 years ago and continues to be motivated to remain smoke free. Code(s): F17.210 - Nicotine dependence, cigarettes, uncomplicated Category: Social Hx Plan: Commended for not smoking. Continue annual LDCT of the chest. (3) Acute rhinosinusitis: Comment: Patient seems to be post viral infection of upper airways. At present seems to have residual rhinosinusitis. Code(s): J01.90 - Acute sinusitis, unspecified Category: Medical Plan: Empirically treat with a course of Z-Yahir. She is allergic to doxycycline and Levaquin. Medications: New azithromycin For 250 mg dose pack: take 500 mg today (day 1), then 250 mg for 4 days (days 2-5) PO 6 tabs 0RF Coding Level of Care Code Est Pt Level 3 (26207) Diagnoses Restrictive lung disease J98.4 Smoking greater than 30 pack years F17.210 Acute rhinosinusitis J01.90
[2024-01-09 10:26] VITALS: BP 120/58; PULSE 74; O2SAT 96; BMI 33.2
== END 2024-01-09 10:49 | disposition home or self-care (01) ==
PROVIDERS: PCP Nurse Practitioner Primary Care; Visit Provider Internal Medicine
DX: J98.4 Other disorders of lung (principal); F17.210 Nicotine dependence, cigarettes, uncomplicated; J01.90 Acute sinusitis, unspecified
CPT/HCPCS: 99213

== ENCOUNTER → 2024-01-09 10:12 | Outpatient (BNVA) | payer OTHER, SELFPAY | PROVIDERS: PCP Nurse Practitioner Primary Care; Visit Provider Internal Medicine | DX: J98.4 Other disorders of lung (principal); J01.90 Acute sinusitis, unspecified; F17.210 Nicotine dependence, cigarettes, uncomplicated | CPT/HCPCS: 99212 ==

== ENCOUNTER 2024-04-15 09:33 | Outpatient (REF) | payer OTHER, SELFPAY | END 2024-04-15 09:34 | disposition home or self-care (01) | LOC: HO.MAMMO 09:33 | PROVIDERS: PCP Nurse Practitioner Primary Care; Visit Provider Nurse Practitioner Primary Care | DX: Z12.31 Encounter for screening mammogram for malignant neoplasm of breast (principal) | CPT/HCPCS: 77063; 77067 ==

== ENCOUNTER → 2024-04-15 09:45 | Outpatient (BNV) | payer OTHER, SELFPAY | PROVIDERS: PCP Nurse Practitioner Primary Care; Visit Provider Internal Medicine | DX: Z12.31 Encounter for screening mammogram for malignant neoplasm of breast (principal) | CPT/HCPCS: 77063; 77067 ==

== ENCOUNTER 2024-04-18 08:53 | Outpatient (AMB) | payer OTHER, SELFPAY ==
[2024-04-18 09:08] VITALS: BP 132/58; PULSE 70; BMI 32.8
--- NOTE | 2024-04-18 09:08 | MHC.OFFVIS ---
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 Allergies ibuprofen [IBUPROFEN] Allergy (Severe, Verified 01/09/24 10:41) SICK TO MY STOMACH ciprofloxacin [From CIPRO] Allergy (Intermediate, Verified 01/09/24 10:41) SICK doxycycline Allergy (Intermediate, Verified 01/09/24 10:41) Dizziness levofloxacin [From LEVAQUIN] Allergy (Intermediate, Verified 01/09/24 10:41) SICK , nausea, dizziness x days flu vaccine Allergy (Intermediate, Uncoded 01/09/24 10:41) Swelling Medication List - Last Reconciled 04/18/24 by Yovanny Reid MD albuterol sulfate 2.5 mg (3 mL) inhalation QID PRN albuterol sulfate 90 mcg/actuation (Ventolin HFA) inhalation apixaban (Eliquis) 5 mg PO BID benzonatate 100 mg PO BID PRN blood sugar diagnostic (FreeStyle Lite Strips) As directed cholecalciferol (vitamin D3) 25 mcg PO DAILY dicyclomine 10 mg PO QID diltiazem HCl CD 180 mg PO DAILY ezetimibe 10 mg PO DAILY famotidine 20 mg PO BID glipizide 10 mg PO BID insulin degludec (Tresiba FlexTouch U-100 insulin) 12 units subcut DAILY lancets (FreeStyle Lancets) As directed 1x/daily lisinopril 10 mg PO DAILY loratadine 10 mg PO DAILY metformin ER 1,000 mg (2 x 500 mg) PO BID prochlorperazine maleate mg PO rosuvastatin 40 mg PO DAILY sertraline 100 mg PO DAILY PRN HPI Comments Details: Zee comes for follow-up. She had a EP evaluation for Watchman device. Was felt that she was able to tolerate her oral anticoagulant therapy and continue the same. She has been taking Eliquis regularly and has had no major bleeding issues. She denies any other cardiac symptoms. Denies any exertional chest pain or shortness of breath. She has been participating in lifestyle modification has lost a lot of weight. She denies any prolonged palpitation irregular heartbeat. No lightheadedness, syncope. No heart failure symptoms. Taking all her medications. She says her cancer also is in currently remission. [facility] Medical History Acute rhinosinusitis Restrictive lung disease Dyspnea on exertion Smoking greater than 30 pack years CKD (chronic kidney disease) stage 3, GFR 30-59 ml/min Babesiasis Paroxysmal atrial fibrillation CAD (coronary artery disease) Asthma Diabetes Bronchitis Obesity (BMI 30-39.9) Vitamin D deficiency Osteopenia Dyslipidemia Hypertension Diabetic 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 GERD (gastroesophageal reflux disease) Surgical History Hx of cataract surgery Hx of foot surgery Hx of colonoscopy History of esophagogastroduodenoscopy (EGD) Family History Father Heart failure Diabetes mellitus Mother Cholangiocarcinoma Diabetes mellitus Family history of hypertension Family history of heart attack Brother Lung cancer Family/Other Breast cancer Sister Social History Household Members: Family Housing: House Do you presently have visiting nurse or other home services: No Alcohol intake: current Alcohol intake frequency: a few times a month Alcohol type: beer Patient Tobacco Use Status: Former Tobacco user Tobacco use type: Cigarette Years Smoked: 45 e-Cigarette/Vaping Use: Never Used Advance Directives Date on File: 10/19/22 service: No Current occupational status: unemployed Review of Systems Const Denies chills, Denies fatigue, Denies fever(s), Denies frequent falls, Denies weakness, Denies weight gain and Denies weight loss ENT Denies dizziness Card Denies chest pain, Denies leg edema, Denies lightheadedness, Denies palpitations, Denies dyspnea, Denies dyspnea on exertion, Denies orthopnea and Denies other (loss of consciousness) Resp Denies cough, Denies dyspnea and Denies dyspnea on exertion GI Denies hematochezia and Denies change in stool character Musc Denies abnormal gait, Denies muscle weakness, Denies numbness, Denies radiating pain into limb and Denies tingling Neuro Denies abnormal gait, Denies dizziness, Denies frequent falls, Denies numbness, Denies tingling and Denies weakness Endo Denies fatigue and Denies palpitations Physical Exam Vital Signs: Last Vital Signs Pulse 70 04/18/24 09:08 BP 132/58 L 04/18/24 09:08 BMI result Body Mass Index 32.8 Const General: cooperative, no acute distress, alert and awake Orientation/consciousness: patient oriented x3 Neck Neck: Yes normal visual inspection and Yes no JVD Resp Effort & Inspection: normal respiratory effort, able to speak in complete sentences and not labored Auscultation: clear to auscultation bilaterally, no crackles, no rales, no rhonchi and no wheezes Cardio Palpation: normal PMI Rate: regular rate Rhythm: regular rhythm Heart sounds: S1 normal heart sound present and S2 normal heart sound present GI Inspection: Yes normal to inspection Neuro General: patient oriented x3 Extrem General: Yes normal to inspection and No edema Assessment & Plan Assessment & Plan (1) Paroxysmal atrial fibrillation: Code(s): I48.0 - Paroxysmal atrial fibrillation Category: Medical Plan: Paroxysmal atrial fibrillation in this middle-aged woman with multiple risk factors, has remained suppressed on current therapy. Continue rhythm control approach. Continue therapy with Cardizem. There is no indication for antiarrhythmic drug therapy or further ablation at this point time. Advised to call me with any new symptoms. Currently tolerating oral anticoagulation therapy with Eliquis. If she develops significant bleeding issues have discussed Watchman device with her and she would be a candidate for it. She understands agrees. Continue risk factor modification. Weight loss was applauded. She is encouraged to continue to participate in regular physical activity. Avoidance of stimulants was discussed. Continue aggressive blood pressure control. (2) CAD (coronary artery disease): Code(s): I25.10 - Atherosclerotic heart disease of [place] coronary artery without angina pectoris Category: Medical Plan: Nonobstructive CAD without any significant new symptoms. Continue aggressive risk factor modification. Currently on full oral anticoagulation with therefore avoid aspirin therapy. Continue aggressive management diabetes goal hemoglobin A1c less than 7%. Continue aggressive lipid modification with goal LDL less than 70 mg/dL pursued on annual lipid panel basis. Blood pressure is currently well optimized. Advised to monitor blood pressure at home maintain a log. Goal blood pressure less than 130/84. Will follow up in the clinic in 1 year's time, sooner p.r.n.. Thank you for allowing me to partake in his care Coding Level of Care Code Est Pt Level 4 (28531) Complex EM visit Add On G2211 Diagnoses Paroxysmal atrial fibrillation I48.0 CAD (coronary artery disease) I25.10
== END 2024-04-18 09:49 | disposition home or self-care (01) ==
PROVIDERS: PCP Nurse Practitioner Primary Care; Visit Provider Internal Medicine Cardiovascular Disease
DX: I48.0 Paroxysmal atrial fibrillation (principal); I25.10 Atherosclerotic heart disease of native coronary artery without angina pectoris
CPT/HCPCS: 99214; G2211

== ENCOUNTER → 2024-04-18 08:53 | Outpatient (BNVA) | payer OTHER, SELFPAY | PROVIDERS: PCP Nurse Practitioner Primary Care; Visit Provider Internal Medicine Cardiovascular Disease | DX: I48.0 Paroxysmal atrial fibrillation (principal); I25.10 Atherosclerotic heart disease of native coronary artery without angina pectoris | CPT/HCPCS: 99212 ==

== ENCOUNTER 2024-06-17 12:01 | Outpatient (REF) | payer OTHER, SELFPAY ==
[2024-06-17 14:04] LABS: HIV AB/AG Nonreactive (Nonreactive); HIV Num 1 0.04 S/CO (0.00-0.99); ~HepC Num1 0.15 S/CO (0.00-0.79); ~Hepatitis C Antibody Nonreactive (Nonreactive)
[2024-06-18 03:06] LABS: CT PCR NOT DETECTED (Not Detect.); NG PCR NOT DETECTED (Not Detect.)
[2024-06-18 10:52] LABS: Bacterial Vaginosis PCR NEGATIVE (Negative); Candida Group PCR NOT DETECTED (Not Detect); Candida glab krusei PCR NOT DETECTED (Not Detect); Trichomonas vaginalis PCR NOT DETECTED (Not Detect)
[2024-06-18 12:34] LABS: RPR Rapid Plasma Reagin NON-REACTIVE (NON-REACTIVE)
== END 2024-06-17 12:02 | disposition home or self-care (01) ==
LOC: HO.HHCL 12:01
PROVIDERS: Visit Provider Nurse Practitioner Primary Care
DX: Z11.3 Encounter for screening for infections with a predominantly sexual mode of transmission (principal)
CPT/HCPCS: 36415; 81515; 86592; 86803; 87389; 87491; 87591

== ENCOUNTER 2024-06-25 07:34 | Emergency (ER) | payer OTHER, SELFPAY ==
--- NOTE | ~2024-06-25 | CT_ITS ---
EXAMINATION: CT ABDOMEN PELVIS WITH IV CONTRAST HISTORY: right mid abdominal tenderness COMPARISON: Comparison is made with the prior examination dated 10/24/2023. TECHNIQUE: CT scan of the abdomen and pelvis was performed following administration of 85 mL Omnipaque 350 using standard departmental protocol. Coronal and sagittal reformatted images were generated and reviewed. Oral contrast material was not administered at the request of the referring physician. This CT exam was performed with one or more of the following dose reduction techniques: automated exposure control, adjustment of the mA and/or kV according to patient size, use of iterative reconstruction technique. DLP: 654 mGy-cm FINDINGS: LOWER CHEST: The visualized lung bases are clear. There is no pleural effusion. CARDIOVASCULATURE: The heart is normal in size. There is no pericardial effusion. LIVER: The liver is normal in size and contour. No liver mass is identified. The hepatic and portal veins are patent. GALLBLADDER / BILE DUCTS: The gallbladder is surgically absent. There is no intra or extrahepatic biliary ductal dilatation. SPLEEN: The spleen is normal in size. No focal splenic lesion is identified. PANCREAS: The pancreas is unremarkable in appearance. ADRENAL GLANDS: Within normal limits. KIDNEYS/RETROPERITONEUM: No renal calculi are identified. There is no hydronephrosis. Again seen are bilateral cysts measuring 4.4 cm the lower pole of the right kidney and 2.3 cm at the upper pole of the left kidney. LYMPH NODES: No abdominal or pelvic lymphadenopathy. VASCULATURE: The abdominal aorta demonstrates atherosclerotic calcification, but is normal in caliber. MESENTERY/PERITONEUM: No free fluid. No masses. There is no free intraperitoneal gas. STOMACH: The stomach is collapsed, limiting evaluation. SMALL BOWEL: The small bowel is normal in caliber. COLON: There is a large amount of stool throughout the colon. There is diffuse colonic diverticulosis without evidence of diverticulitis. APPENDIX: Normal. URINARY BLADDER/PELVIC ORGANS: The urinary bladder is unremarkable. The patient is status post hysterectomy. BONES / SOFT TISSUES: No suspicious bony or soft tissue abnormalities. CT/CT abdomen pelvis w IV con IMPRESSION: Large amount of stool throughout the colon. Colonic diverticulosis without evidence of diverticulitis. No acute abnormality is identified. Electronically signed by: Malachi Castillo MD 06/25/2024 03:02 PM EDT RP
--- NOTE | ~2024-06-25 | US_ITS ---
EXAMINATION: US ABDOMEN LIMITED CLINICAL INFORMATION: Right upper quadrant tenderness. Status post cholecystectomy.. COMPARISON: Correlated to CT dated October 24, 2023. TECHNIQUE: Real-time imaging of the right upper quadrant abdominal viscera using grayscale technique. FINDINGS: PANCREAS: No peripancreatic fluid collections. LIVER: Liver measures 15 cm. Coarse echotexture. No nodular surface. No gross solid or cystic lesion identified by the technologist. No intrahepatic biliary ductal dilatation. GALLBLADDER: Cholecystectomy. COMMON BILE DUCT: 7 mm. RIGHT KIDNEY: 10 cm. Renal cortical thinning. Normal echotexture. No hydronephrosis. There is a 4 cm well-defined anechoic lesion in the lower pole without septations or flow on color Doppler interrogation.. FREE FLUID: None. US/US abdomen limited IMPRESSION: Probable hepatic steatosis. 4 cm exophytic cyst, lower pole right kidney. No hydronephrosis. No ascites. Common bile duct: 7 mm. Electronically signed by: Lars Flores MD 06/25/2024 11:09 AM EDT
[2024-06-25 07:37] VITALS: BP 148/59; PULSE 68; RESP 16; TEMP 36.4; O2SAT 97; BMI 14758.0
[2024-06-25 07:58] LABS: MANUAL DIFF FLAG NO
[2024-06-25 07:59] LABS: Basophils Percent Auto 0.5 % (0-2); Eosinophils Absolute Auto 0.1 X10*3/uL (0.0-0.4); Eosinophils Percent Auto 2.9 % (0-4); Hematocrit 35.9 % (37.0-47.0); Hemoglobin 12.3 g/dl (12.0-16.0); Imm Gran Abs Auto 0.01 X10*3/uL (0.00-0.03); Imm Gran Pct Auto 0.2 % (0.0-0.4); Lymphocytes Absolute Auto 0.9 X10*3/uL (1.2-4.9); Mean Corpuscular HGB Conc 34.3 g/dl (31.0-35.0); Mean Corpuscular Hemoglobin 34.6 pg (27.0-33.0); Mean Corpuscular Volume 101.1 fL (80.0-98.0); Mean Platelet Volume 8.1 fL (9.4-12.3); Monocytes Absolute Auto 0.3 X10*3/uL (0.1-1.2); Monocytes Percent Auto 6.4 % (2-11); Neutrophils Absolute Auto 2.7 x10*3/uL (2.0-8.3); Platelet Count 176 X10*3/uL (160-400); Red Blood Count 3.55 X10*6/uL (4.20-5.50); Red Cell Distribution Width 12.6 % (11.0-16.0); White Blood Count 4.1 X10*3/uL (4.8-10.8)
[2024-06-25 08:14] LABS: Alanine Aminotransferase 15 U/L (0-31); Albumin Level 3.9 g/dL (3.5-5.0); Alkaline Phosphatase 63 U/L (39-117); Anion Gap 10 (12-20); Aspartate Amino Transferase 22 U/L (5-31); Bilirubin Total 0.3 mg/dL (0.0-1.0); Blood Urea Nitrogen 18 mg/dL (9-16); Calcium 8.7 mg/dL (8.4-10.2); Carbon Dioxide 24 mmol/L (22-29); Chloride 111 mmol/L (96-108); Creatinine Clr Calc Pharmacy -16.7; Estimated Glomerular Filt Rate > 60; Glucose Random 158 mg/dL (60-115); Potassium 3.8 mmol/L (3.3-5.1); Sodium 141 mmol/L (135-145); Total Protein 7.1 g/dL (6.5-8.0)
[2024-06-25 10:00] VITALS: BP 141/64; PULSE 60; RESP 20; TEMP 36.6; O2SAT 98
--- NOTE | 2024-06-25 10:04 | ED.GENADULT ---
HPI - General Adult General Chief complaint: Abdominal Pain Stated complaint: r side pain Time Seen by Provider: 06/25/24 09:43 Source: patient, RN notes reviewed and old records reviewed Mode of arrival: ambulatory Limitations: no limitations History of Present Illness ED Provider: Melissa HENRIQUEZ narrative: Patient is a 63-year-old female with history of restrictive lung disease, CKD, smoking >30pack years, paroxysmal afib on apixiban, CAD, asthma, DM, obesity, HTN, GERD presenting to the emergency department with complaint of right upper quadrant abdominal pain since Monday. States the pain woke her from sleep around 4:00 a.m.. She reports that the pain is intermittent and episodes of severe pain are brief, lasting less than a few minutes. She denies nausea, vomiting, diarrhea, constipation. Reports last normal bowel movement was this morning. Denies any hematuria, dysuria or other urinary symptoms. Denies fevers. States pain is minimal at this time, does increase with palpation. MD complaint: abdominal pain Onset (ago): day(s) Location: abdomen Radiation: non-radiation Quality: sharp Pain Consistency: intermittent Treatments prior to arrival: none Related Data Home Medications ?Medication ?Instructions ?Recorded ?Confirmed sertraline 100 mg tablet 100 mg PO DAILY PRN Anxiety 02/26/20 04/18/24 blood sugar diagnostic (FreeStyle #10 ea 06/23/21 01/09/24 Lite Strips) glipizide 10 mg tablet 10 mg PO BID 10/24/22 04/18/24 insulin degludec 100 unit/mL (3 12 unit subcut DAILY 10/24/22 04/18/24 mL) subcutaneous pen (Tresiba FlexTouch U-100 insulin) albuterol sulfate 90 mcg/actuation inhalation 06/20/23 04/18/24 aerosol inhaler (Ventolin HFA) loratadine 10 mg tablet 10 mg PO DAILY 06/20/23 04/18/24 prochlorperazine maleate 5 mg mg PO 12/12/23 04/18/24 tablet apixaban 5 mg tablet (Eliquis) 5 mg PO BID 04/18/24 04/18/24 Previous Rx's ?Medication ?Instructions ?Recorded cholecalciferol (vitamin D3) 25 25 mcg PO DAILY #30 caps 04/04/21 mcg (1,000 unit) capsule ezetimibe 10 mg tablet 10 mg PO DAILY #30 tabs 06/23/21 lancets 28 gauge (FreeStyle #100 ea 06/23/21 Lancets) metformin 500 mg tablet,extended 1,000 mg (2 x 500 mg) PO BID #360 12/14/21 release 24 hr tabs rosuvastatin 40 mg tablet 40 mg PO DAILY #90 tabs 12/14/21 albuterol sulfate 2.5 mg/3 mL 2.5 mg (3 mL) inhalation QID PRN 01/08/22 (0.083 %) solution for nebulization shortness of breath or wheezing #75 mL diltiazem HCl 180 mg 180 mg PO DAILY #90 caps 11/21/23 capsule,extended release 24 hr famotidine 20 mg tablet 20 mg PO BID #60 tabs 12/12/23 dicyclomine 10 mg capsule 10 mg PO QID #360 caps 12/19/23 benzonatate 100 mg capsule 100 mg PO BID PRN cough #20 caps 01/04/24 lisinopril 10 mg tablet 10 mg PO DAILY #90 tabs 01/31/24 polyethylene glycol 3350 17 17 g PO DAILY #119 grams 06/25/24 gram/dose oral powder (Miralax) sennosides 8.6 mg-docusate sodium 1 tab-cap PO BEDTIME #14 tabs 06/25/24 50 mg tablet (Senna with Docusate Sodium) Allergies Allergy/AdvReac Type Severity Reaction Status Date / Time ibuprofen [IBUPROFEN] Allergy Severe SICK TO Verified 06/25/24 07:37 MY STOMACH ciprofloxacin [From CIPRO] Allergy Intermediate SICK Verified 06/25/24 07:37 doxycycline Allergy Intermediate Dizziness Verified 06/25/24 07:37 levofloxacin [From LEVAQUIN] Allergy Intermediate SICK , Verified 06/25/24 07:37 nausea, dizziness x days flu vaccine Allergy Intermediate Swelling Uncoded 06/25/24 07:37 Review of Systems Review of Systems: As per HPI Yes all other systems are reviewed and are negative Constitutional: Constitutional: Reports as per HPI [facility] Past Medical History Medical History Acute rhinosinusitis Restrictive lung disease Dyspnea on exertion Smoking greater than 30 pack years CKD (chronic kidney disease) stage 3, GFR 30-59 ml/min Babesiasis Paroxysmal atrial fibrillation CAD (coronary artery disease) Asthma Diabetes Bronchitis Obesity (BMI 30-39.9) Vitamin D deficiency Osteopenia Dyslipidemia Hypertension Diabetic 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 GERD (gastroesophageal reflux disease) Surgical History Hx of cataract surgery Hx of foot surgery Hx of colonoscopy History of esophagogastroduodenoscopy (EGD) Family History Family History Father Heart failure Diabetes mellitus Mother Cholangiocarcinoma Diabetes mellitus Family history of hypertension Family history of heart attack Brother Lung cancer Family/Other Breast cancer Sister Social History Social History Household Members: Family Housing: House Do you presently have visiting nurse or other home services: No Alcohol intake: current Alcohol intake frequency: a few times a month Alcohol type: beer Patient Tobacco Use Status: Former Tobacco user Tobacco use type: Cigarette Years Smoked: 45 e-Cigarette/Vaping Use: Never Used Advance Directives: Yes Advance Directives on File: Yes Advance Directives Date on File: 10/19/22 Do you have a plan to hurt others: No Plan service: No Current occupational status: unemployed Physical Exam ED Vital Signs: Vital Signs - 24 hr 06/25/24 07:37 06/25/24 10:00 06/25/24 13:52 Temperature 97.5 F 97.8 F 98.5 F Pulse Rate 68 60 68 Respiratory Rate 16 20 16 Blood Pressure 148/59 H 141/64 H 128/55 L Pulse Oximetry 97 98 98 Oxygen Delivery Method Room Air Room Air Room Air 06/25/24 15:18 Temperature 98.3 F Pulse Rate 66 Respiratory Rate 16 Blood Pressure 131/50 L Pulse Oximetry 93 Oxygen Delivery Method Room Air BMI result Body Mass Index 10769.0 Vital signs have been reviewed and appear to be correct. Blood pressure normal. Heart rate normal. Respiratory rate normal. Temperature normal. Oxygen saturation normal. Const General: cooperative, healthy appearing and no acute distress Orientation/consciousness: oriented to person, oriented to place, oriented to time and patient oriented x3 Limitations: no limitations HENMT Head: Yes normocephalic and Yes atraumatic Ears: external ears normal General nose exam: Normal external nose present Face and sinus: Yes face symmetric Mouth: oropharynx normal and moist mucous membranes Throat: Yes uvula midline Eyes Pupils: Equal, round and reactive pupils present Neck Neck: Yes normal visual inspection and Yes supple Resp Effort & Inspection: normal respiratory effort and able to speak in complete sentences Auscultation: clear to auscultation bilaterally Cardio Rate: regular rate Rhythm: regular rhythm Heart sounds: S1 normal heart sound present and S2 normal heart sound present GI Palpation (GI): Soft to palpation and Tenderness to palpation present (GI) (right mid abdominal tenderness) in the RUQ Auscultation: normoactive bowel sounds General: Yes no CVA tenderness Back/Spine/Pelvis Back: no CVA tenderness Skin General skin exam: elasticity normal and turgor normal Neuro General: oriented to person, oriented to place, oriented to time, patient oriented x3, moves all extremities, no focal motor deficits and CN's II-XI intact bilaterally Cranial nerves: Yes Equal, round and reactive pupils present Cognition (Neuro): normal cognition Extrem General: Yes full ROM, Yes no pedal edema and Yes no calf tenderness Psych Mental Status: mental status grossly normal Affect: normal affect Thought process: Normal thought process present Medications Administered Discontinued Medications Generic Name Dose Route Start Last Admin Trade Name Freq PRN Reason Stop Dose Admin Iohexol 100 ml 06/25/24 14:47 06/25/24 14:48 Iohexol 350 Mg/Ml 100 Ml Infus..Btl IV 06/25/24 14:48 85 ml ONCE ONE Administration Medical Decision Making Medical Decision Making [facility] Narrative: Patient is a 63-year-old female with history of restrictive lung disease, CKD, smoking >30pack years, paroxysmal afib on apixiban, CAD, asthma, DM, obesity, HTN, GERD presenting to the emergency department with complaint of right upper quadrant abdominal pain since Monday. On exam patient is awake, A+Ox3, VS WNL, afebrile, normal neurological exam without focal deficits, physical exam findings as above. Given reported symptoms and physical exam findings, initial differential includes but is not limited to functional biliary pain, bile duct stone, biliary sludge, GERD. Labs unremarkable, negative troponin. EKG shows normal sinus rhythm. Ultrasound notable for probable hepatic steatosis, 4cm cyst right kidney, no hydronephrosis. CT A/P shows large amount of stool throughout the colon. My interpretation is in agreement with the radiologist's interpretation. UA is without evidence of infection. Patient comfortable at this time as she states pain comes and goes. Feel she is stable for discharge, will refer to GI for follow up. Will discharge on Miralax and docu-senna. Return precautions discussed. Patient verbalized understanding of and agreement with plan. Differential Diagnosis Differential Diagnoses: The differential diagnosis associated with the presentation includes As per [facility] Admission/Observation Consideration of admission/observation: Escalation of care including admission/observation considered Patient would have been admitted to the hospital had their work up had any findings where hospital admission was appropriate and their clinical presentation warranted hospital admission. Lab Data [facility] Lab Attestation statement: I reviewed the patient's lab results. As per [facility] 06/25/24 07:52 06/25/24 07:52 Labs: Lab Results 06/25/24 06/25/24 06/25/24 Range/Units 07:52 10:03 10:57 WBC 4.1 L (4.8-10.8) X10*3/uL RBC 3.55 L (4.20-5.50) X10*6/uL Hgb 12.3 (12.0-16.0) g/dl Hct 35.9 L (37.0-47.0) % MCV 101.1 H (80.0-98.0) fL MCH 34.6 H (27.0-33.0) pg MCHC 34.3 (31.0-35.0) g/dl RDW 12.6 (11.0-16.0) % Plt Count 176 (160-400) X10*3/uL MPV 8.1 L (9.4-12.3) fL Immature Gran % (Auto) 0.2 (0.0-0.4) % Neut % (Auto) 67.0 (45-73) % Lymph % (Auto) 23.0 (20-40) % [place] % (Auto) 6.4 (2-11) % Eos % (Auto) 2.9 (0-4) % Baso % (Auto) 0.5 (0-2) % Lymph # (Auto) 0.9 L (1.2-4.9) X10*3/uL [place] # (Auto) 0.3 (0.1-1.2) X10*3/uL Eos # (Auto) 0.1 (0.0-0.4) X10*3/uL Baso # (Auto) 0.0 (0.0-0.2) X10*3/uL Abs Immat Gran (auto) 0.01 (0.00-0.03) X10*3/uL Absolute Neuts (auto) 2.7 (2.0-8.3) x10*3/uL Absolute Nucleated RBC 0.000 (0.0-0.012) X10*3/uL Nucleated RBC % (auto) 0.0 (0.0-0.2) /100WBC Sodium 141 (135-145) mmol/L Potassium 3.8 (3.3-5.1) mmol/L Chloride 111 H (96-108) mmol/L Carbon Dioxide 24 (22-29) mmol/L Anion Gap 10 L (12-20) BUN 18 H (9-16) mg/dL Creatinine 0.90 (0.5-1.4) mg/dL Estim Creat Clear Calc -16.7 Estimated GFR > 60 Random Glucose 158 H (60-115) mg/dL Calcium 8.7 D (8.4-10.2) mg/dL Total Bilirubin 0.3 (0.0-1.0) mg/dL AST 22 (5-31) U/L ALT 15 (0-31) U/L Alkaline Phosphatase 63 (39-117) U/L Troponin I High Sens < 2.7 (<3.5-17.0) ng/L Total Protein 7.1 (6.5-8.0) g/dL Albumin 3.9 (3.5-5.0) g/dL Urine Color Yellow Urine Appearance Clear Urine pH 5.5 (5.0-9.0) Ur Specific [place] 1.020 (1.005-1.025) Urine Protein 30 (1+) H (Neg-Trace) mg/dL Urine Glucose (UA) Negative (Negative) mg/dL Urine Ketones Negative (Negative) mg/dL Urine Blood Negative (Negative) Urine Nitrite Negative (Negative) Ur Leukocyte Esterase Negative (Negative) Urine RBC 0-2 (0-2) /HPF Urine WBC 0-5 (0-5) /HPF Ur Squamous Epith Cells 0-2 (0-2) /HPF Urine Bacteria None Seen (None Seen) Hyaline Casts 0-2 (0-2) /LPF Independent Interpretation I performed an independent interpretation of an: Ultrasound and CT Scan Interpretation: Ultrasound notable for probable hepatic steatosis, 4cm cyst right kidney, no hydronephrosis. CT A/P shows large amount of stool throughout the colon. Radiology Impression Discussion of test interpretation with radiology: I have reviewed the radiologist's reading. Radiologist Impression: US/US abdomen limited IMPRESSION: Probable hepatic steatosis. 4 cm exophytic cyst, lower pole right kidney. No hydronephrosis. No ascites. Common bile duct: [address]/CT abdomen pelvis w IV con IMPRESSION: Large amount of stool throughout the colon. Colonic diverticulosis without evidence of diverticulitis. No acute abnormality is identified. External Record Review External record reviewed: Inpatient record, Office record and Outpatient record Prescription Management I considered prescription management with: Other Discharge Plan Discharge Clinical Impression: Abdominal pain, Constipation Patient Disposition: Home, Self-Care Instructions: Constipation (DC), Abdominal Pain (ED) Additional Instructions: You have been evaluated in the emergency department today for abdominal pain. Your evaluation did not show evidence of medical conditions requiring emergent intervention at this time. Your CT scan shows a large amount of stool in your colon. We are prescribing medications to help you move your bowels. 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 Please schedule an appointment with your primary care physician as well. Return to the emergency department if you experience worsening or uncontrolled pain, fevers 100.4? F or greater, recurrent vomiting, inability to tolerate food or fluids by mouth, bloody stools or vomit, black or tarry stools, or any other concerning symptoms. Prescriptions: New polyethylene glycol 3350 [Miralax] 17 gram/dose powder 17 g PO DAILY Qty: 119 0RF sennosides-docusate sodium [Senna with Docusate Sodium] 8.6-50 mg tablet 1 tab-cap PO BEDTIME Qty: 14 0RF No Action cholecalciferol (vitamin D3) 25 mcg (1,000 unit) capsule 25 mcg PO DAILY Qty: 30 11RF metformin 500 mg tablet extended release 24 hr 1,000 mg PO BID Qty: 360 1RF rosuvastatin 40 mg tablet 40 mg PO DAILY Qty: 90 1RF diltiazem HCl 180 mg capsule,extended release 24hr 180 mg PO DAILY Qty: 90 1RF dicyclomine 10 mg capsule 10 mg PO QID Qty: 360 1RF lisinopril 10 mg tablet 10 mg PO DAILY Qty: 90 3RF albuterol sulfate 2.5 mg /3 mL (0.083 %) solution for nebulization 2.5 mg inhalation QID PRN (Reason: shortness of breath or wheezing) Qty: 75 0RF benzonatate 100 mg capsule 100 mg PO BID PRN (Reason: cough) Qty: 20 0RF glipizide 10 mg tablet 10 mg PO BID insulin degludec [Tresiba FlexTouch U-100] 100 unit/mL (3 mL) insulin pen 12 unit subcut DAILY (DME) FreeStyle Lite Strips Strip See Rx Instructions Not Applicable DAILY Qty: 10 Rx Instructions: As directed (DME) lancets [FreeStyle Lancets] 28 gauge misc See Rx Instructions .Route Qty: 100 3RF Rx Instructions: As directed 1x/daily ezetimibe 10 mg tablet 10 mg PO DAILY Qty: 30 11RF sertraline 100 mg tablet 100 mg PO DAILY PRN (Reason: Anxiety) albuterol sulfate [Ventolin HFA] 90 mcg/actuation HFA aerosol inhaler inhalation loratadine 10 mg tablet 10 mg PO DAILY prochlorperazine maleate 5 mg tablet PO famotidine 20 mg tablet 20 mg PO BID Qty: 60 6RF Eliquis 5 mg tablet 5 mg PO BID Referrals: [facility] [place] [facility] [Provider Group] Print Language: Moz[place]ican
[2024-06-25 10:27] LABS: Appearance Urine Clear; Color Urine Yellow; Glucose Urine UA Negative (Negative); Leukocyte Esterase Urine Negative (Negative); Nitrite Urine Negative (Negative); PH 5.5 (5.0-9.0); UMIC TRIGGER UACC YES; Urine Blood Negative (Negative); Urine Ketones Negative (Negative); Urine Protein 30 (1+) mg/dL (Neg-Trace)
[2024-06-25 10:34] LABS: Bacteria Urine None Seen (None Seen); Hyaline Casts Urine 0-2 /LPF (0-2); RBC Urine 0-2 /HPF (0-2); Squamous Epithelial Cell Urine 0-2 /HPF (0-2); WBC Urine 0-5 /HPF (0-5)
--- NOTE | 2024-06-25 10:38 | ECG_ITS ---
Test Reason : Abd Pain Blood Pressure : */* mmHG Vent. Rate : 61 BPM Atrial Rate : 61 BPM P-R Int : 198 ms QRS Dur : 84 ms QT Int : 402 ms P-R-T Axes : 55 9 37 degrees QTcB Int : 404 ms Normal sinus rhythm Normal ECG When compared with ECG of 04-Jan-2024 08:48, No significant change was found Referred By: Natalie Torres Electronically Signed By: JANNETH BAIG MD
[2024-06-25 11:46] LABS: Troponin-I High Sensitivity < 2.7 ng/L (<3.5-17.0)
[2024-06-25 13:52] VITALS: BP 128/55; PULSE 68; RESP 16; TEMP 36.9; O2SAT 98
[2024-06-25] MEDS: iohexoL 350 MG/ML 100 ML INFUS..BTL IV (14:48)
[2024-06-25 15:18] VITALS: BP 131/50; PULSE 66; RESP 16; TEMP 36.8; O2SAT 93
[2024-06-25 15:48] VITALS: BP 131/50; PULSE 66; RESP 16; TEMP 36.8; O2SAT 93
== END 2024-06-25 15:51 | disposition home or self-care (01) ==
PROVIDERS: Registered Nurse Emergency; Emergency Provider Emergency Medicine Emergency Medical Services; PCP Nurse Practitioner Primary Care
DX: K59.00 Constipation, unspecified (principal); R10.11 Right upper quadrant pain; I12.9 Hypertensive chronic kidney disease with stage 1 through stage 4 chronic kidney disease, or unspecified chronic kidney disease; E11.22 Type 2 diabetes mellitus with diabetic chronic kidney disease; N18.9 Chronic kidney disease, unspecified; I48.0 Paroxysmal atrial fibrillation; Z79.01 Long term (current) use of anticoagulants; Z79.899 Other long term (current) drug therapy
CPT/HCPCS: 36415; 74177; 76705; 80053; 81001; 84484; 85025; 93005; 99284; Q9967

== ENCOUNTER → 2024-06-25 10:33 | Outpatient (BNV) | payer OTHER, SELFPAY | PROVIDERS: Emergency Provider Emergency Medicine Emergency Medical Services; PCP Nurse Practitioner Primary Care; Visit Provider Radiology Diagnostic Radiology | DX: K57.30 Diverticulosis of large intestine without perforation or abscess without bleeding (principal); K56.41 Fecal impaction; N28.1 Cyst of kidney, acquired | CPT/HCPCS: 74177; 76705 ==

== ENCOUNTER → 2024-06-25 10:38 | Outpatient (BNV) | payer OTHER, SELFPAY | PROVIDERS: Emergency Provider Emergency Medicine Emergency Medical Services; PCP Nurse Practitioner Primary Care; Visit Provider Internal Medicine Cardiovascular Disease | DX: R10.9 Unspecified abdominal pain (principal) | CPT/HCPCS: 93010 ==

== ENCOUNTER 2024-07-10 10:02 | Outpatient (AMB) | payer OTHER, SELFPAY ==
--- NOTE | 2024-07-10 10:18 | A.OFFVIS_ITS ---
Vital Signs 07/10/24 10:19 Height 5 ft 3 in Weight 191 lb 12.835 oz BMI 34.0 BP 130/64 Blood Pressure Location Lt brachial Position Sitting Pulse 69 Pulse Source Pulse Oximeter Pulse Oximetry (%) 96 Oxygen Delivery Method Room Air Intake Visit Reasons: COPD Intake Note: pt is here for follow up and states she is feeling good, no issues today It Application Support Analyst Required: No Allergies ibuprofen [IBUPROFEN] Allergy (Severe, Verified 07/10/24 10:31) SICK TO MY STOMACH ciprofloxacin [From CIPRO] Allergy (Intermediate, Verified 07/10/24 10:31) SICK doxycycline Allergy (Intermediate, Verified 07/10/24 10:31) Dizziness levofloxacin [From LEVAQUIN] Allergy (Intermediate, Verified 07/10/24 10:31) SICK , nausea, dizziness x days flu vaccine Allergy (Intermediate, Uncoded 07/10/24 10:31) Swelling Medication List - Last Reconciled 07/10/24 by Kwame Martinez MD albuterol sulfate 2.5 mg (3 mL) inhalation QID PRN albuterol sulfate 90 mcg/actuation (Ventolin HFA) inhalation apixaban (Eliquis) 5 mg PO BID benzonatate 100 mg PO BID PRN blood sugar diagnostic (FreeStyle Lite Strips) As directed cholecalciferol (vitamin D3) 25 mcg PO DAILY dicyclomine 10 mg PO QID diltiazem HCl CD 180 mg PO DAILY ezetimibe 10 mg PO DAILY famotidine 20 mg PO BID glipizide 10 mg PO BID insulin degludec (Tresiba FlexTouch U-100 insulin) 12 units subcut DAILY lancets (FreeStyle Lancets) As directed 1x/daily lisinopril 10 mg PO DAILY loratadine 10 mg PO DAILY metformin ER 1,000 mg (2 x 500 mg) PO BID polyethylene glycol 3350 (Miralax) 17 grams PO DAILY prochlorperazine maleate mg PO rosuvastatin 40 mg PO DAILY sennosides-docusate sodium 8.6-50 mg (Senna with Docusate Sodium) 1 tab-cap PO BEDTIME sertraline 100 mg PO DAILY PRN Do you need a note to return to daycare/school/sports/work: No HPI HPI COPD: Details: This 64 years old female, with past history of smoking and quit 3 years ago, has mild restrictive pulmonary disorder mainly due to being overweight. And she has mild intermittent bronchial asthma which remains under good control. She is here for 6 months follow-up. She has hardly needed to use albuterol during the past 6 months. She gets mild shortness of breath on walking up hill or climbing stairs. Denies any cough or wheezing. [facility] Medical History Acute rhinosinusitis Restrictive lung disease Dyspnea on exertion Smoking greater than 30 pack years CKD (chronic kidney disease) stage 3, GFR 30-59 ml/min Babesiasis Paroxysmal atrial fibrillation CAD (coronary artery disease) Asthma Diabetes Bronchitis Obesity (BMI 30-39.9) Vitamin D deficiency Osteopenia Dyslipidemia Hypertension Diabetic 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 GERD (gastroesophageal reflux disease) Surgical History Hx of cataract surgery Hx of foot surgery Hx of colonoscopy History of esophagogastroduodenoscopy (EGD) Family History Father Heart failure Diabetes mellitus Mother Cholangiocarcinoma Diabetes mellitus Family history of hypertension Family history of heart attack Brother Lung cancer Family/Other Breast cancer Sister Social History Household Members: Family Housing: House Do you presently have visiting nurse or other home services: No Alcohol intake: current Alcohol intake frequency: a few times a month Alcohol type: beer Patient Tobacco Use Status: Former Tobacco user Tobacco use type: Cigarette Years Smoked: 45 e-Cigarette/Vaping Use: Never Used Advance Directives Date on File: 10/19/22 service: No Current occupational status: unemployed Review of Systems Const All systems reviewed & are unremarkable except as noted in HPI and below Eyes Reports no additional complaints ENT Reports no additional complaints Card Denies chest pain, Denies irregular heart rhythm and Denies leg edema Resp Reports as per HPI GI Reports constipation Reports no additional complaints Musc Reports no additional complaints Skin/Breast Reports system reviewed and no additional complaints, except as documented Neuro Reports no additional complaints Psych Reports no additional complaints Endo Reports other (Diabetes mellitus) Zachery/Lymph Reports no additional complaints Aller/Immun Reports no additional complaints Physical Exam Vital Signs: Last Vital Signs Pulse 69 07/10/24 10:19 BP 130/64 07/10/24 10:19 Pulse Ox 96 07/10/24 10:19 Oxygen Delivery Method Room Air 07/10/24 10:19 BMI result Body Mass Index 34.0 Const General: healthy appearing (Except for being overweight), comfortable, no acute distress, alert and awake Orientation/consciousness: patient oriented x3 HEENT Head: Yes normal to inspection General nose exam: No nasal polyps present and nasal discharge present (She does have some mucopurulent secretions in the nasopharynx) Face and sinus: Yes sinuses nontender Throat: No posterior oropharynx normal (Mucopurulent discharge in nasopharynx) Eyes General: appearance normal, both eyes and all related structures Neck Neck: Yes normal visual inspection, Yes no lymphadenopathy, Yes trachea midline and Yes no JVD Thyroid: Thyroid normal Chest Chest palpation & inspection: normal inspection of the chest, normal palpation of entire chest wall and no tenderness Resp Effort & Inspection: normal respiratory effort Auscultation: clear to auscultation bilaterally, no crackles and no wheezes Cardio Palpation: normal PMI Rate: regular rate Rhythm: regular rhythm Heart sounds: no gallops and no murmurs GI Palpation (GI): Soft to palpation, nontender, No hepatosplenomegaly present and no masses Auscultation: normal bowel sounds Back/Spine/Pelvis Thoracic/Lumbar Spine: thoracic and lumbar spine normal to inspection Skin General skin exam: no rashes or lesions noted Neuro General: patient oriented x3 and no focal motor deficits Cranial nerves: Yes CN's II-XII intact bilaterally Extrem General: Yes normal to inspection, Yes no clubbing, cyanosis or edema and Yes no calf tenderness Psych Appearance: grossly normal and well kempt Speech and movement: Normal speech and movement present Assessment & Plan Assessment & Plan (1) Restrictive lung disease: Comment: PER PFT SHE HAS MILD RESTRICTIVE DISORDER WHICH IS DUE TO HER OBESITY. Code(s): J98.4 - Other disorders of lung Category: Medical Plan: Patient is instructed to lose weight. She is also advised to keep on doing deep breathing exercises every day. Albuterol HFA 2 puffs Q 6 hours only p.r.n. (2) Smoking greater than 30 pack years: Comment: Patient gives history of smoking actually for about 50 years, 1 pack a day. Luckily she did quit 3 years ago ( 2021 ) and continues to be motivated to remain smoke free. Code(s): F17.210 - Nicotine dependence, cigarettes, uncomplicated Category: Social Hx Plan: Commended for not smoking She should continue with annual lung screening program. Coding Level of Care Code Est Pt Level 3 (41303) Diagnoses Restrictive lung disease J98.4 Smoking greater than 30 pack years F17.210
[2024-07-10 10:19] VITALS: BP 130/64; PULSE 69; O2SAT 96; BMI 34.0
--- OUTSIDE RECORDS SUMMARY | 2024-07-10 11:14 | XMS_ITS | Encounter Summary ---
Author Organization [employer] Address [address] [facility] [address] [place] [address] Care Team Providers Care Fiberglass Autobody Repairer Name Role Phone Areli Elam Primary Care Provider [phone] Mathew Gatica PharmD Unavailable [phone] Reason for Visit * Reason Onset Date Comments Call Back Request 03/07/2023 Encounter Details Date Type Department Care Team (Late st Contact Info) Description 03/07/2023 Telephone [facility] MEDICINE [address] [place], [place] [phone] Areli Elam ANP [address] [place], [place] [phone] Call Back Request Social History Tobacco Use Types Packs/Day Years Used Date Smoking Tobacco: Former Cigarettes Passive Smoke Exposure: Never Smokeless Tobacco: Never Alcohol Use Standard Drinks/Week Comments Yes 0 (1 standard drink = 0.6 oz pur e alcohol) Depression Answer Date Recorded Patient Health Questionnaire-9 Score 0 10/31/2022 Housing Stability Answer Date Recorded What is your housing situation today? I have isa raza 01/23/[address] you li ve. Do you have problems with any of the following? None of the above 01/23/2023 Food Insecurity Answer Date Recorded Within the past 12 months, y ou worried that your food would run out before you got money to buy more: Never True 01/23/2023 Within the past 12 months,th e food you bought just didn't last and you didn't have enough money to get more: Never True Transportation Answer Date Recorded In the past 12 months, has l ack of transportation kept you from medical appts, meetings, work or from getting things needed for daily living? No 01/23/2023 Utilities Answer Date Recorded In the past 12 months, has t he electric, gas, oil or water company threatened to shut off services in your home? No 01/23/2023 Depression Answer Date Recorded Patient Health Questionnaire-2 Score 0 10/31/2022 Comments Unknown Sex and Gender Information Value Date Recorded Sex Assigned at Female 01/31/2022 10:15 AM EDT Legal Sex Female 10:15 AM EDT Gender Identity Female 01/31/2022 10:15 AM EDT Sexual Orientation Choose not to disclose 2021 10:15 AM EDT documented as of this encounter Miscellaneous Notes * Telephone Encounter - JIN Alva - 03/23/2023 3:36 PM EST Called pt yesterday and again today x2, goes to 03/23/23 3:36pm * Telephone Encounter - Soniya Cuenca - 03/22/2023 2:15 PM EST Tc from pt returning call. Please contact at [phone] Greenlandic * Telephone Encounter - JIN Alva - 03/13/2023 10:24 AM EST Tried pt again today, no answer. * Telephone Encounter - Kelly Melara - 03/07/2023 9:54 AM EST Tc from pt requesting to speak with PCP in regards colonoscopy results, pt states is leaving today at 11am on vacation but need clarifications on results, pt expressed is nervous about results and dont wanted to leave without a response, pt also stated walk in yesterday to the clinic and request tospeak with PCP but where not in the office. documented in this encounter Plan of Treatment Upcoming Encounters Date Type Department Care Team (Late st Contact Info) Description 07/15/2024 10:00 AM EDT Medication Management [facility] MEDICINE [address] [place] [phone] Mathew Gatica, Peter [address] [place] [address] 09/17/2024 9:30 AM EDT Office Visit [facility] MEDICINE [address] [place] [address] Areli Elam ANP [address] [place] [address] documented as of this encounter Visit Diagnoses Not on filedocumented in this encounter Additional Health Concerns Assessment Noted Time PHQ-9 Depression Total Score: 0 11/01/19 23 9:18 AM EDT documented as of this encounter Care Teams Fiberglass Autobody Repairer Relationship Specialty Start Date End Date Areli Elam ANP [address] [place] [phone] PCP - General Family Medicine 02/06/20 Mathew Gatica, NancyD [address] [place] [address] [phone] Pharmacist Internal Medicine 09/22/23 documented as of this encounter
--- OUTSIDE RECORDS SUMMARY | 2024-07-10 11:14 | XMS_ITS | Encounter Summary ---
Author Organization [employer] Address [address] [facility] 7t [place] [address] Care Team Providers Care Steel Turner Name Role Phone Areli Elma Primary Care Provider [phone] Mathew Gatica PharmD Unavailable Reason for Visit * Reason Comments Med Refill Encounter Details Date Type Department Care Team (Late st Contact Info) Description 06/18/2023 Refill [facility] MEDICINE [address] [place], [place] [phone] Areli Elam ANP [address] [place] [address] Diabetic 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 ([facility]/HCC) Social History Tobacco Use Types Packs/Day Years [...] AM EDT documented as of this encounter Plan of Treatment Upcoming Encounters Date Type Department Care Team (Late st Contact Info) Description 07/15/2024 10:00 AM EDT Medication Management [facility] MEDICINE [address] [place] [phone] Mathew Gatica, Peter [address] [place] [phone] 09/17/2024 9:30 AM EDT Office Visit [facility] MEDICINE [address] [place] [phone] Areli Elam ANP [address] [place] [phone] documented as of this encounter Visit Diagnoses Diagnosis Diabetic 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 ([facility]) documented in this encounter Additional Health Concerns Assessment Noted Time PHQ-9 Depression Total Score: 0 11/01/19 23 9:18 AM EDT documented as of this encounter Care Teams Steel Turner Relationship Specialty Start Date End Date Areli Elam ANP [address] [place] [phone] PCP - General Family Medicine 02/06/20 Mathew Gatica, NancyD [address] [place] [phone] Pharmacist Internal Medicine 09/22/23 documented as of this encounter
--- OUTSIDE RECORDS SUMMARY | 2024-07-10 11:14 | XMS_ITS | Encounter Summary ---
Author Organization [employer] Address [address] [facility] 7t [place] [address] Care Team Providers Care Wine Steward Name Role Phone Areli Elam Primary Care Provider [phone] Mathew Gatica PharmD Unavailable [phone] Reason for Visit * Reason Comments Med Refill Encounter Details Date Type Department Care Team (Late st Contact Info) Description 01/08/2023 Refill [facility] MEDICINE [address] [place], [place] [phone] Areli Elam ANP [address] [place] [address] Diabetic 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 ([facility]/HCC) Social History Tobacco Use Types Packs/Day Years Used Date Smoking Tobacco: Former Cigarettes Passive Smoke Exposure: Never Smokeless Tobacco: Never Alcohol Use Standard Drinks/Week Comments Yes 0 (1 standard drink = 0.6 oz pur e alcohol) Depression Answer Date Recorded Patient Health Questionnaire-9 Score 0 10/31/2022 Housing Stability Answer Date Recorded What is your housing situation today? I have isa raza 01/08/[address] you li ve. Do you have problems with any of the following? None of the above 01/08/2023 Food Insecurity Answer Date Recorded Within the past 12 months, y ou worried that your food would run out before you got money to buy more: Never True 01/08/2023 Within the past 12 months,th e food you bought just didn't last and you didn't have enough money to get more: Never True 11/2022 Transportation Answer Date Recorded In the past 12 months, has l ack of transportation kept you from medical appts, meetings, work or from getting things needed for daily living? No 01/08/2023 Utilities Answer Date Recorded In the past 12 months, has t he electric, gas, oil or water company threatened to shut off services in your home? No 01/08/2023 Depression Answer Date Recorded Patient Health Questionnaire-2 [...] Description 07/15/2024 10:00 AM EDT Medication Management [facility] MEDICINE [address] [place] [phone] Mathew Gatica, Peter [address] [place] [phone] 09/17/2024 9:30 AM EDT Office Visit [facility] MEDICINE [address] [place] [phone] Areli Elam ANP [address] [place] [phone] documented as of this encounter Visit Diagnoses Diagnosis Diabetic 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 ([facility]) documented in this encounter Additional Health Concerns Assessment Noted Time PHQ-9 Depression Total Score: 0 11/01/19 23 9:18 AM EDT documented as of this encounter Care Teams Wine Steward Relationship Specialty Start Date End Date Areli Elam ANP [address] [place] [phone] PCP - General Family Medicine 02/06/20 Mathew Gatica, NancyD [address] [place] [phone] Pharmacist Internal Medicine 09/22/23 documented as of this encounter
--- OUTSIDE RECORDS SUMMARY | 2024-07-10 11:14 | XMS_ITS | Encounter Summary ---
Author Organization [employer] Address [address] [facility] 7t [place] [address] Care Team Providers Care Grinder Outside Diameter Name Role Phone Areli Elam Primary Care Provider [phone] Mathew Gatica PharmD Unavailable [phone] Reason for Visit * Reason Comments Med Refill Encounter Details Date Type Department Care Team (Late st Contact Info) Description 01/09/[address] [facility] MEDICINE [address] [place], [place] [phone] Areli Elam ANP [address] [place] [address] Diabetic 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 ([facility]/HCC) Social History Tobacco Use Types Packs/Day Years Used Date Smoking Tobacco: Former Cigarettes Passive Smoke Exposure: Never Smokeless Tobacco: Never Alcohol Use Standard Drinks/Week Comments Yes 0 (1 standard drink = 0.6 oz pur e alcohol) Depression Answer Date Recorded Patient Health Questionnaire-9 Score 0 11/16/2023 Patient Health Questionnaire-9 Score 0 11/16/2023 Last PHQ-9: Questionnaire Data Not on file 0 11/16/2023 Housing Stability Answer Date Recorded What is your housing situation today? I have isa raza 11/16/[address] you li ve. Do you have problems with any of the following? None of the above 11/16/2023 Food Insecurity Answer Date Recorded Within the past 12 months, y ou worried that your food would run out before you got money to buy more: Never True 11/16/2023 Within the past 12 months,th e food you bought just didn't last and you didn't have enough money to get more: Never True Transportation Answer Date Recorded In the past 12 months, has l ack of transportation kept you from medical appts, meetings, work or from getting things needed for daily living? No 11/16/2023 Utilities Answer Date Recorded In the past 12 months, has t he electric, gas, oil or water company threatened to shut off services in your home? No 11/16/2023 Depression Answer Date Recorded Patient Health Questionnaire-2 Score 0 11/16/2023 Internet Access Answer Date Recorded Internet Access Q1 Yes 12/04/2023 Internet Access Q2 Not on file 12/04/2023 Comments Unknown Sex and Gender Information Value [...] Description 07/15/2024 10:00 AM EDT Medication Management [facility] MEDICINE [address] [place] [phone] Mathew Gatica, PharmDaniela [address] [place] [phone] 09/17/2024 9:30 AM EDT Office Visit [facility] MEDICINE [address] [place] [phone] Areli Elam, ANP [address] [place] [address] documented as of this encounter Goals Goal Patient Goal Type Associated Problems Recent Progress Patient-Stated? Author Blood Pressure < 140/90 Blood Pressure 150/75(2024 10:42 AM EDT) No Mathew Gatica PharmD Hemoglobin A1c < 7 Result Component 8(06/17/2024 10:56 AM EDT) No Mathew Gatica PharmD Note: Goal of 8% may be reasonable given patient's age, history of Cancer, HTN, CKD, CAD documented as of this encounter Visit Diagnoses Diagnosis Diabetic 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 ([facility]) documented in this encounter Additional Health Concerns Assessment Noted Time PHQ-9 Depression Total Score: 0 11/16/19 24 9:38 AM EDT documented as of this encounter Care Teams Grinder Outside Diameter Relationship Specialty Start Date End Date Areli Elam ANP [address] [place] [address] PCP - General Family Medicine 02/06/20 Mathew Gatica, Peter [address] [place] [address] Pharmacist Internal Medicine 09/22/23 documented as of this encounter
--- OUTSIDE RECORDS SUMMARY | 2024-07-10 11:14 | XMS_ITS | Encounter Summary ---
Author Organization [facility] [facility] [employer] Address [address] [facility] [address] [place] [address] Care Team Providers Care Hotel Service Supervisor Name Role Phone Areli Elam Primary Care Provider [phone] Mathew Gatica PharmD Unavailable [phone] Reason for Visit * Reason Comments Med Change Request Encounter Details Date Type Department Care Team ([facility] st Contact Info) Description 06/30/2023 Refill [facility] [address] [place], [place] [phone] Areli Elam ANP [address] [place] [address] Non-seasonal allergic rhinitis, unspecified trigger Social History Tobacco Use Types Packs/Day Years [...] Description 07/15/2024 10:00 AM EDT Medication Management [facility] [address] [place] [phone] Mathew Gatica, Peter [address] [place] [phone] 09/17/2024 9:30 AM EDT Office Visit [facility] [address] [place] [phone] Areli Elam ANP [address] [place] [phone] documented as of this encounter Visit Diagnoses Diagnosis Non-seasonal allergic rhinitis, unspecified trigger documented in this encounter Additional Health Concerns Assessment Noted Time PHQ-9 Depression Total Score: 0 11/01/19 9:18 AM EDT documented as of this encounter Care Teams Hotel Service Supervisor Relationship Specialty Start Date End Date Areli Elam ANP [address] [place] [phone] PCP - General Family Medicine 02/06/20 Mathew Gatica, NancyD [address] [place] [address] [phone] Pharmacist Internal Medicine 09/22/23 documented as of this encounter
--- OUTSIDE RECORDS SUMMARY | 2024-07-10 11:14 | XMS_ITS | Encounter Summary ---
Author Organization [employer] Address [address] [facility] [address] [place] [address] Care Team Providers Care Special Certificate Dictator Name Role Phone rAeli Elam Primary Care Provider [phone] Mathew Gatica PharmD Unavailable [phone] Reason for Visit * Reason Comments Med Refill Encounter Details Date Type Department Care Team ([facility] st Contact Info) Description 11/18/2023 Refill [facility] [address] [place] [address] Lisset Cobian MD [address] [place] [address] Social History Tobacco Use Types Packs/Day Years [...] Recorded Patient Health Questionnaire-2 Score 0 11/16/2023 Comments Unknown Sex and Gender Information Value [...] Description 07/15/2024 10:00 AM EDT Medication Management [facility] [address] [place] [phone] Mathew Gatica, PharmDaniela [address] [place] [phone] 09/17/2024 9:30 AM EDT Office Visit [facility] [address] [place] [phone] Areli Elam ANP [address] [place] [phone] documented as of this encounter Goals Goal [...] documented as of this encounter Care Teams Special Certificate Dictator Relationship Specialty Start Date End Date Areli Elam ANP [address] [place] [address] PCP - General Family Medicine 02/06/20 Mathew Gatica PharmD [address] [place] [address] Pharmacist Internal Medicine 09/22/23 documented as of this encounter
--- OUTSIDE RECORDS SUMMARY | 2024-07-10 11:14 | XMS_ITS | Clinical Summary ---
Author Organization [employer] Address [address] [place] [address] Care Team Providers Care Otorhinolaryngologist Name Role Phone Ildefonso Darden Primary Care Provider [phone] Mathew Gatica PharmD Unavailable [phone] Allergies Active Allergy Reactions Criticality Noted Date Comments Ciprofloxacin 05/11/2020 Other reaction(s): Shaking Doxycycline Dizziness 01/01/2021 Other reaction(s): Nausea / Vomiting Ibuprofen Other 10/13/2015 Other reaction(s): Vomiting Influenza Virus Vaccine High 02/11/2021 Other reaction(s): Swelling of upper limb Levofloxacin Other 04/24/2014 Other reaction(s): Dizziness & Nausea Oxycodone Itching 09/22/2023 Medications acetaminophen (Tylenol) 325 MG tablet Take 2 tablets by mouth every 4 hours as needed for pain or fever 12/14/19 22 Active calcium carbonate (Tums) 500 MG chewable tablet CHEW 1 TABLET BY MOUTH TWICE DAILY 09/19/19 22 Active dilTIAZem CD (Cardizem CD) 180 MG 24 hr capsule TAKE 1 CAPSULE BY MOUTH ONCE DAILY 01/27/20 22 Active FreeStyle lancets TEST BLOOD SUGARS DAILY 01/29/20 22 Active melatonin tablet TAKE 1 TABLET BY MOUTH AT BEDTIME IF NEEDED FOR SLEEP 03/08/20 22 Active sertraline (Zoloft) 100 MG tablet Take 200 mg by mouth in the morning. 03/08/20 22 Active glucose blood (FREESTYLE LITE) test stripIndication s:Type 2 diabetes mellitus with chronic kidney disease, without long-term current use of insulin, unspecified CKD stage (CMS/HCC) USE TO TEST ONCE DAILY 50 strip 5 04/18/19 24 Active famotidine (Pepcid) 20 MG tabletIndicatio ns:Gastroesopha geal reflux disease, unspecified whether esophagitis present TAKE 1 TABLET BY MOUTH TWICE A DAY NEEDED FOR ACID REFLUX 40 tablet 06/16/19 24 Active Alcohol Swabs padsIndications :Hyperglycemia due to diabetes mellitus ([facility]/HCC) 1 each if needed (to clean skin). 100 each 11 08/14/19 24 Active Blood Glucose Monitoring Suppl (FreeStyle Lite) w/Device kitIndications: Hyperglycemia due to diabetes mellitus ([facility]/HCC) 1 each Once per day. Use to check blood sugar TID 1 kit 08/14/19 24 Active pen needle 31G x 6 mm miscIndications :Hyperglycemia due to diabetes mellitus ([facility]/HCC) Use as instructed 100 each 12 08/15/19 24 025 Active dicyclomine (Bentyl) 10 MG capsule Take 10 mg by mouth 4 times daily. 09/15/19 24 Active lisinopril (Prinivil) 10 MG tabletIndicatio ns:Primary hypertension Take 1 tablet (10 mg) by mouth Once per day. 30 tablet 2 09/22/19 24 Active apixaban (Eliquis) 5 MG tablet Take 5 mg by mouth 2 times daily. Active glipiZIDE (Glucotrol) 10 MG tabletIndicatio ns:Diabetic 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 ([facility]/HCC) TAKE 1 TABLET (10 MG) BY MOUTH BEFORE BREAKFAST AND BEFORE EVENING MEAL. 180 tablet 1 10/09/19 24 Active Ventolin HFA 108 (90 Base) MCG/ACT inhalerIndicati ons:Chronic obstructive pulmonary disease, unspecified COPD type ([facility]/HCC) INHALE 2 PUFFS EVERY 6 HOURS IF NEEDED FOR WHEEZING. 18 g 5 11/22/19 24 Active magnesium oxide (Mag-Ox) 400 MG tablet Take 400 mg by mouth Once per day. 11/14/19 24 Active rosuvastatin (Crestor) 40 MG tabletIndicatio ns:Diabetic 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 ([facility]/HCC) TOME PATTI TABLETA TODOS LOS DÍAZ EN LA MANANA 90 tablet 3 01/22/20 24 Active insulin degludec (Tresiba FlexTouch) 100 UNIT/ML injectionIndica tions:Hyperglyc emia due to diabetes mellitus ([facility]/HCC) Inject 14 units under the skin daily as directed 15 mL 3 02/16/20 24 Active lidocaine (Lidoderm) 5 % patchIndication s:Left hip pain Apply 1 patch topically Once per day. Remove & discard patch within 12 hours or as directed by MD. 30 patch 2 02/16/20 24 Active cholecalciferol (D3-1000) 25 MCG (1000 UT) capsule TAKE 1 CAPSULE BY MOUTH EVERY MORNING 90 capsule 1 04/18/19 25 Active loratadine (Claritin) 10 MG tabletIndicatio ns:Non-seasonal allergic rhinitis, unspecified trigger TAKE 1 TABLET BY MOUTH EVERY DAY IF NEEDED FOR ALLERGIES 90 tablet 1 04/18/19 25 Active metFORMIN XR (Glucophage-XR) 500 MG 24 hr tabletIndicatio ns:Diabetic 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 ([facility]) TAKE 2 TABLETS BY MOUTH TWICE DAILY WITH BREAKFAST AND EVENING MEAL 360 tablet 3 04/26/19 25 Active fluticasone (Flonase) 50 MCG/ACT nasal sprayIndication s:Nasal congestion Administer 1-2 sprays into each nostril if needed in the morning and at bedtime for rhinitis or allergies. Shake gently. Before first use, prime pump. After use, clean tip and replace cap. 48 g 06/18/19 25 026 Active albuterol (2.5 MG/3ML) 0.083% nebulizer solutionIndicat ions:Acute cough USE 1 VIAL VIA NEBULIZER 4 TIMES A DAY NEEDED FOR SHORTNESS OF BREATH OR WHEEZING 75 mL 3 06/18/19 25 Active nystatin (Mycostatin) creamIndication s:Intertrigo Apply topically if needed in the morning and at bedtime (rash). 30 g 06/18/19 25 026 Active Continuous Glucose [employer]les (FreeStyle Vicky 3 [place]) deviceIndicatio ns:Diabetic 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 (CMS/HCC) 1 each Once per day. Use as directed for CGM 1 each 06/18/19 25 Active Continuous Glucose Sensor (FreeStyle Vicky 3 Plus Sensor) miscIndications :Diabetic 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 (CMS/HCC) 1 each every 15 days. Apply 1 every 15 days as directed for CGM 2 each 06/18/19 25 Active glucose blood (FreeStyle Precision Jay Test) test stripIndication s:Diabetic 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 ([facility]) Use to test blood sugar 4 times daily in case of CGM failure or extremes of BG 100 each 06/18/19 25 026 Active ezetimibe (Zetia) 10 MG tablet TAKE 1 TABLET BY MOUTH EVERY DAY 90 tablet 3 07/03/19 25 Active albuterol (2.5 MG/3ML) 0.083% nebulizer solution USE 1 VIAL VIA NEBULIZER 4 TIMES A DAY NEEDED FOR SHORTNESS OF BREATH OR WHEEZING 75 mL 3 03/06/20 23 025 Discontinued(R eorder (will not trigger notification to Pharmacy)) ezetimibe (Zetia) 10 MG tablet TAKE 1 TABLET BY MOUTH EVERY DAY 90 tablet 3 07/28/19 24 025 Discontinued(R eorder (will not trigger notification to Pharmacy)) azithromycin (Zithromax) 250 MG tabletIndicatio ns:Acute non-recurrent sinusitis, unspecified location Take 2 tablets (500 mg) by mouth Once per day for 1 day, THEN 1 tablet (250 mg) Once per day for 4 days. 6 tablet 06/18/19 25 025 Hospital, Clinic, or Other Facility Administered Medication Ordered Dose Route Frequency Start Date End Date Status albuterol (2.5 MG/3ML) 0.083% nebulizer solution 2.5 mgIndications:Acute cough 2.5 mg NEBULIZATION Once 06/17/2024 06/17/2024 Ended Active Problems Problem Noted Date Diagnosed Date Class 2 obesity 09/18/2023 Type 2 diabetes mellitus wit hout complication, with long-term current use of insulin 08/18/2023 Renal cyst 08/18/2023 Cancer related pain 08/17/2023 Squamous cell carcinoma of anal canal 02/17/2023 Overview (05/08/2023): Colonoscopy 02/17/23 w/ multiple polyps just beyond anal verge, internal hemorrhoids. Biopsy came back + for anal cancer. Following w/ Drs. Ty, Davonte, and referred to [facility] Dr. Oleary radiation therapy. She had her colonoscopy done on 02/[address] Godinez. Findings: 1 x 2 cm polypoid area just proximal to the anal verge adjacent to hemorrhoids. Pathology revealed: Superficial invasive squamous cell carcinoma poorly-differentiated and in Situ. She underwent CT scan of the chest abdomen and pelvis for initial staging on 03/03/2023 which revealed: IMPRESSION: 1.5 cm along the right inguinal lymph node, suspicious. Mild asymmetric right perirectal space soft tissue thickening but no focal enhancing mass. Simple bilateral renal cysts. No further workup needed. 2 mm pulmonary nodule left lower lobe, nonsuspicious. The gallbladder has been surgically removed. Colonic diverticulosis without diverticulitis. Underwent anoscopy w/ Dr. Arauz 05/03/23 and is established w/ Dr. Ty for staging and tx. She was seen by Dr. Arauz on 05/03. Per Dr. Arauz: I have done her anoscopy in the office. There seems to be some abnormal mucosa on the right in a canal just proximal to the anal verge. There was no obvious elevated lesion or polyp at this time. In view of her pathology, treatment would be chemotherapy and radiation. I do not feel any inguinal lymph nodes although there is mention of a 1.5 cm inguinal node on the right side. Per Dr. Ty, last visit 05/05/23, who has ordered MRI of the pelvis with endorectal coil to determine the exact extent for local staging and radiation planning, This has been scheduled for 05/11 at [facility]. She is a candidate for combined modality therapy with radiation along with chemotherapy with mitomycin/fluoropyrimidine. Will treat with mitomycin 12 mg per m2 IV bolus day 1 and 29 along with capecitabine 825 mg per m2 b.i.d. Monday through Monday on the days that she receives RT. A referral has been made for Dr. Oleary from radiation therapy at [facility]. She tells me she lives nearby and so would be convenient for her to go there Abnormal nuclear cardiac imaging test 10/31/2022 BRAYAN (acute kidney injury) 10/31/2022 Babesiasis 10/31/2022 Colon cancer screening 10/31/2022 Constipation 10/31/2022 Family history of polyps in the colon 10/31/2022 Osteopenia 10/31/2022 Thoracic back pain 10/31/2022 Vitamin D deficiency 10/31/2022 Assessment & Plan (11/08/2022 5:27 PM EDT): ?? Last Vit D 59.1 ng/mL in Dec 2021 ?? Repeat Vit D level to determine if appropriate dose of supplementation (if applicable) Stage 3a chronic kidney disease 06/06/2022 Bilateral adhesive capsulitis of shoulders 01/28 Overview (10/17/2022): she is following w/ ortho MRI of left shoulder, obtained on 12/24/2021, revealed: 1. Moderate supraspinatus tendinosis with anterior bursal surface partial tearing measuring 1.5 x 1.0 cm. 2. Mild proximal long head biceps tendinosis. 3. Moderate acromioclavicular osteoarthritis with small subacromial spurs. 4. Mild thickening and edema of the anterosuperior joint capsule. Findings could be seen in very mild adhesive capsulitis. Stage 3b chronic kidney disease 01/03/2022 Assessment & Plan (11/08/2022 5:29 PM EDT): ?? BRAYAN on CKD ?? Baseline Cr around 1.2 mg/dL ?? Last Cr 1.55 mg/dL on 10/28/22 ?? Repeat ordered today ?? May resume metformin ?? Encouraged to continue with good hydration and avoid nephrotoxic agents ?? Follow up with Nephrology - Dr. Beavers - as scheduled CAD (coronary artery disease) 12/08/2021 Paroxysmal atrial fibrillation 03/01/2021 Diabetic nephropathy associa darby with type 2 diabetes mellitus 10/30/2020 Overview (05/08/2023): Baseline Cr 1.04 On statin (& zetia) not on ASA (anticoagulated on Eliquis for Afib - on hold 04/2023 d/t epistaxis), on ACEi (lisinopril 20mg) Meds: Glipizide 10mg BID AC Tresiba (insulin degludec) 12 units daily Metformin 500mg ER 2 tabs BID (?endo) Hypertension 10/30/2020 Proteinuria 10/30/2020 Former heavy tobacco smoker 10/30/2020 Gastroparesis 03/18/2020 Overactive bladder 12/24/2019 Anxiety 04/12/2018 Acquired deformity of hip 07/10/2017 Hip pain 07/10/2017 Microalbuminuria 10/05/2012 Fibromyositis 08/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 GERD (gastroesophageal reflux disease) 3 History of cholecystectomy 08/22/2012 History of hysterectomy 08/22/2012 Hyperlipidemia 08/22/2012 Irritable bowel syndrome 08/22/2012 Obesity due to excess calories 08/22/2012 H/O: hysterectomy 08/22/2012 Depressive disorder 09/06/2011 Hyperglycemia 09/06/2011 Resolved Problems Problem Noted Date Diagnosed Date Resolved Date Acute hyperkalemia 10/31/2022 4 Chest discomfort 10/31/2022 11/08/2022 Hypomagnesemia 10/31/2022 05/08/2023 Metabolic acidosis 10/31/2022 4 Nausea & vomiting 10/31/2022 11/08/2022 Pneumonia 10/31/2022 11/08/2022 Pre-op examination 10/31/2022 3 Shoulder pain 10/31/2022 11/08/2022 Skin rash 10/31/2022 11/08/2022 Adhesive capsulitis of right shoulder 10/31/2022 11/08/2022 CKD (chronic kidney disease) stage 3, GFR 30-59 ml/min 10/31/2022 11/08/2022 CKD (chronic kidney disease) 10/31/2022 11/08/2022 Adhesive capsulitis of both shoulders 01/28/2022 11/08/2022 Overview (04/19/2022): she is following w/ ortho MRI of left shoulder, obtained on 12/24/2021, revealed: 1. Moderate supraspinatus tendinosis with anterior bursal surface partial tearing measuring 1.5 x 1.0 cm. 2. Mild proximal long head biceps tendinosis. 3. Moderate acromioclavicular osteoarthritis with small subacromial spurs. 4. Mild thickening and edema of the anterosuperior joint capsule. Findings could be seen in very mild adhesive capsulitis. Chronic kidney disease, stage 2 (mild) 12/02/2021 11/08/2022 Chronic obstructive lung disease 09/06/2011 05/08/2023 Chronic obstructive pulmonary disease 09/06/2011 11/08/2022 Encounters Date Type Department Care Team Description 07/02/2024 Refill [facility] [address] [place] [address] Ildefonso Darden ANP 06/26/2024 Telephone [facility] [address] [place] [phone] Ildefonso Darden ANP 06/25/2024 Orders Only GENERIC EXTERNAL DATA DEPARTMENT Provider, Generic External Data 06/18/2024 Telephone [facility] [address] [place] [address] Ildefonso Darden ANP Prior Authorization 06/17/2024 11:00 AM EDT Office Visit [facility] [place] [address] Ildefonso Darden ANP Diabetic 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 ([facility]) (Primary Dx); Nasal congestion; Acute cough; Chronic obstructive pulmonary disease, unspecified COPD type ([facility]); Screening examination for STI; Intertrigo; Acute non-recurrent sinusitis, unspecified location 06/17/2024 Travel 04/26/2024 Refill [facility] [address] [place] [address] Ildefonso Darden ANP Diabetic 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 ([facility]) 04/18/2024 Refill [facility] [address] [place] [address] Ildefonso Darden ANP Non-seasonal allergic rhinitis, unspecified trigger 04/15/2024 Orders Only [facility] [address] [place] [address] Ildefonso Darden ANP from Last 3 Months Immunizations Name Administration Dates Next Due Influenza, IIV3, injectable 11/30/2010 Influenza, Unspecified 11/30/2010 Natasha SARS-CoV-2 Vaccination 06/17/2020 Pfizer Covid-19 Vaccine 12+ 05/08/2023 Pneumococcal Conjugate PCV 13 07/01/2021 Pneumococcal Conjugate PCV 20 05/08/2023 Pneumococcal Polysaccharide PPSV23 11/23/2007 TD (adult), 2 Lf tetanus tox oid, preservative free, adsorbed 09/14/2007 Td (adult), 5 Lf tetanus tox oid, preservative free, adsorbed 09/27/2016 Tdap 05/14/2020 Zoster, Recombinant 11/16/2023 Family History Medical History Relation Name Comments Cancer Brother lung cancer (2 brothers) Diabetes Father Hypertension Father Cancer Mother liver Diabetes Mother Hypertension Mother Cancer Niece breast cancer ( 2 nieces) Cervical cancer Niece Breast cancer Sister Cancer Sister lung cancer (2 sisters) Hypertension Sister Relation Name Status Comments Brother Father Mother Niece Sister Social History Tobacco Use Types Packs/Day Years Used Date Smoking Tobacco: Former Cigarettes Passive Smoke Exposure: Never Smokeless Tobacco: Never Tobacco Cessation:Counseling Given: Not Answered Alcohol Use Standard Drinks/Week Comments Yes 0 [...] not to disclose 2021 10:15 AM EDT Last Filed Vital Signs Vital Sign Reading Time Taken Comments Blood Pressure 150/75 06/17/2024 10:42 AM EDT Pulse 80 06/17/2024 10:42 AM EDT Temperature 36.3 ??C (97.3 ??F) 06/17/2024 10:42 AM E DT Respiratory Rate 18 06/17/2024 10:42 AM EDT Oxygen Saturation 96% 06/17/2024 10:42 AM EDT Inhaled Oxygen Concentration - - Weight 86.7 kg (191 lb 3.2 oz) 06/17/2024 10:42 AM EDT Height 160 cm (5' 3 ) 06/17/2024 10:42 AM EDT Body Mass Index 33.87 06/17/2024 10:42 AM EDT Plan of Treatment Upcoming Encounters Date Type Department Care Team (Late st Contact Info) Description 07/15/2024 10:00 AM EDT Medication Management [facility] [address] [place] [phone] Mathew Gatica, PharmD [address] [place] [address] 09/17/2024 9:30 AM EDT Office Visit [facility] [address] [place] [phone] Ildefonso Darden, ANP [address] [place] [address] Health Maintenance Due Date Last Done Comments CT Colonography 1960 FIT DNA/Cologuard 1960 FIT 1960 FOBT 1960 Sigmoidoscopy 1960 RSV Patients and Patients Aged 60 years or older (1 - Risk 60-74 years 1-dose series) 2018 Influenza Vaccine (#1) 2023 11/30/2010, 2010 Zoster Vaccines (2 of 2) 01/11/2024 11/16/2023 Diabetes: Hemoglobin A1C 09/17/2024 025, 02/16/2024, 11/16/2023, Additional history exists Lipid Panel 11/13/2024 11/14/2023, 04/03, 03/18/2021, Additional history exists Depression Screening 11/15/2024 11/16/2023, 11/16/19 24 SDOH Screening 11/15/2024 11/16/2023 Diabetes: Foot Exam 02/15/2025 02/16/2024, 02/16/2024, 02/16/2024, Additional history exists Mammogram 04/15/2025 04/15/2024, 02/02, 02/10/2022, Additional history exists Alcohol/Substance Use Screening 06/17/2025 06/17/2024 Tobacco Screening 06/17/2025 06/17/2024 Colonoscopy 11/09/2025 11/09/2020 Colorectal Cancer Screening 11/09/2025 Eye Exam 11/15/2025 11/16/2023 DTaP/Tdap/Td Vaccines (2 - Td or Tdap) 05/14/2030 05/14/2020, 09/27/2016, 09/14/2007 Pneumococcal Vaccine: 50+ Years Completed 05/08/2023, 07/01/2021, 11/23/2007 COVID-19 Vaccine Completed 02/13/2024, 08/2023, 05/11/2021, Additional history exists Hepatitis C Screening Completed 06/17/2024, 022 HIB Vaccines Aged Out No longer eligi ble based on patient's age to complete this topic HPV Vaccines Aged Out No longer eligi ble based on patient's age to complete this topic Hepatitis A Vaccines Aged Out No long er eligible based on patient's age to complete this topic Hepatitis B Vaccines Aged Out No long er eligible based on patient's age to complete this topic IPV Vaccines Aged Out No longer eligi ble based on patient's age to complete this topic Meningococcal Vaccine Aged Out No luna roselia eligible based on patient's age to complete this topic RSV under 20 months Aged Out No longe r eligible based on patient's age to complete this topic Rotavirus Vaccines Aged Out No longer eligible based on patient's age to complete this topic Goals Goal Patient Goal Type Associated Problems Recent Progress Patient-Stated? Author Blood Pressure < 140/90 Blood Pressure 150/75(2024 10:42 AM EDT) No Mathew Gatica, Peter Hemoglobin A1c < 7 Result Component 8(06/17/2024 10:56 AM EDT) No Mathew Gatica PharmD Note: Goal of 8% may be reasonable given patient's age, history of Cancer, HTN, CKD, CAD Procedures Procedure Name Priority Date/Time Associated Diagnosis Comments CT ABDOMEN PELVIS W CONTRAST Routine 06/25/2024 2:34 PM EDT HIGH SENSITIVITY TROPONIN I Routine 06/25/2024 10:57 AM EDT US ABDOMEN LIMITED Routine 06/25/2024 10 :46 AM EDT URINALYSIS, COMPLETE, WITH REFLEX TO CULTURE Routine 06/25/2024 10:03 AM EDT COMPREHENSIVE METABOLIC PANEL Routine 06/25/2024 7:52 AM EDT CBC WITH AUTO DIFFERENTIAL Routine 06/25/2024 7:52 AM EDT HEPATITIS C AB W/REFL TO HCV RNA, QN, PCR Routine 06/17/2024 12:04 PM EDT Screening examination for STI RPR (MONITOR) W/REFL TITER Routine 06/17/2024 12:04 PM EDT Screening examination for STI HIV 1/2 ANTIGEN/ANTIBODY, FOURTH GENERATION W/RFL Routine 06/17/2024 12:04 PM EDT Screening examination for STI POCT GLYCATED HEMOGLOBIN, TOTAL Routine 06/17/2024 10:56 AM EDT Diabetic 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 (CMS/HCC) POCT GLUCOSE Routine 06/17/2024 10:56 AM EDT Diabetic 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 (CMS/HCC) CHLAMYDIA/N. GONORRHOEAE RNA, TMA, UROGENITAL Routine 06/17/2024 12:00 AM EDT Screening examination for STI BACTERIAL VAGINOSIS PANEL Routine 06/17/2024 12:00 AM EDT Screening examination for STI BI MAMMOGRAM SCREENING TOMOSYNTHESIS BILATERAL Routine 04/15/2024 9:40 AM EST LIPID PANEL, STANDARD Routine 11/14/2023 8:19 AM EDT HM COLONOSCOPY Routine 11/09/2020 from Last 3 Months or Most Recently Relevant to Health Maintenance Results * CT Abdomen Pelvis w/ Contrast (06/25/2024 2:34 PM EDT) Anatomical Region Laterality Modality Body, Pelvis, Abdomen Computed T omography 06/25/2024 2:34 PM EDT Narrative 06/25/2024 3:05 PM EDT ? [facility] ?[address] ?[place] [address] ? CT Scan Report ? Signed ? Patient: Zee Lara ?MR#: [id number] ?? [id number] ? : 1960 ?Acct:[id number] ? Age/Sex: 63 / F ?ADM Date: 06/25/24 ? Loc: HO.ED ? Attending : ? Ordering Physician: Natalie Torres NP ?? Date of Service: 06/25/24 ?? Procedure(s): CT abdomen pelvis w IV con ?? Accession Number(s): [id number] ? cc: ILDEFONSO DARDEN ROBOTICS SPECIALIST; Melissa,Natalie ROBOTICS SPECIALIST ? Report Number: ?? [id number]: Total DLP = ??654.00 mGy-cm ?? EXAMINATION: ??CT ABDOMEN PELVIS WITH IV CONTRAST ? HISTORY: right mid abdominal tenderness ? COMPARISON: Comparison is made with the prior examination dated ?? 10/24/2023. ? TECHNIQUE: CT scan of the abdomen and pelvis was performed following ?? administration of 85 mL Omnipaque 350 using standard departmental ?? protocol. ?? Coronal and sagittal reformatted images were generated and ?? reviewed. ??Oral contrast material was not administered at the request ?? of the referring physician. ? This CT exam was performed with one or more of the following dose ?? reduction techniques: automated exposure control, adjustment of the mA ?? and/or kV according to patient size, use of iterative reconstruction ?? technique. ? DLP: 654 mGy-cm ? FINDINGS: ? LOWER CHEST: The visualized lung bases are clear. There is no pleural ?? effusion. ? CARDIOVASCULATURE: The heart is normal in size. ??There is no ?? pericardial effusion. ? LIVER: ??The liver is normal in size and contour. ??No liver mass is ?? identified. ??The hepatic and portal veins are patent. ? GALLBLADDER / BILE DUCTS: ??The gallbladder is surgically absent. There ?? is no intra or extrahepatic biliary ductal dilatation. ? SPLEEN: The spleen is normal in size. No focal splenic lesion is ?? identified. ? PANCREAS: The pancreas is unremarkable in appearance. ? ADRENAL GLANDS: Within normal limits. ? KIDNEYS/RETROPERITONEUM: No renal calculi are identified. There is no ?? hydronephrosis. ??Again seen are bilateral cysts measuring 4.4 cm the ?? lower pole of the right kidney and 2.3 cm at the upper pole of the left ?? kidney. ? LYMPH NODES: ??No abdominal or pelvic lymphadenopathy. ? VASCULATURE: ??The abdominal aorta demonstrates atherosclerotic ?? calcification, but is normal in caliber. ? MESENTERY/PERITONEUM: No free fluid. No masses. ??There is no free ?? intraperitoneal gas. ? STOMACH: ??The stomach is collapsed, limiting evaluation. ? SMALL BOWEL: ?? The small bowel is normal in caliber. ? COLON: ??There is a large amount of stool throughout the colon. There is ?? diffuse colonic diverticulosis without evidence of diverticulitis. ? APPENDIX: ??Normal. ? URINARY BLADDER/PELVIC ORGANS: The urinary bladder is unremarkable. ? The patient is status post hysterectomy. ? BONES / SOFT TISSUES: ??No suspicious bony or soft tissue abnormalities. ? CT/CT abdomen pelvis w IV con ?? IMPRESSION: ?? Large amount of stool throughout the colon. Colonic diverticulosis ?? without evidence of diverticulitis. No acute abnormality is identified. ? Electronically signed by: ??Malachi Castillo MD ??06/25/2024 03:02 PM EDT ?? RP ? Dictated By: ?Malachi Castillo MD ? Signed By: ?<Electronically signed by Malachi Castillo MD in OV> ?06/25/24 1502 ? DD/ 1434 ? TD/TT: 06/25/24 1447 ? Fast Food Cook: ? Procedure Note Donotyeninterpreter, Image - 06/25/[address] [place] [id number] [address] Scan Report Signed Patient: Frederic Lara#: [id number] : 9Acct:[id number] Age/Sex: 63 / FADM Date: 06/25/24 Loc: HO.ED Attending Dr: Ordering Physician: Natalie Torres NP Date of Service: 06/25/24 Procedure(s): CT abdomen pelvis w IV con Accession Number(s): [id number] cc: ILDEFONSO DARDEN ROBOTICS SPECIALIST; Natalie Torres NP Report Number: [id number]: Total DLP = 654.00 mGy-cm EXAMINATION: CT ABDOMEN PELVIS WITH IV CONTRAST HISTORY: right mid abdominal tenderness COMPARISON: Comparison is made with the prior examination dated 10/24/2023. TECHNIQUE: CT scan of the abdomen and pelvis was performed following administration of 85 mL Omnipaque 350 using standard departmental protocol. Coronal and sagittal reformatted images were generated and reviewed. Oral contrast material was not administered at the request of the referring physician. This CT exam was performed with one or more of the following dose reduction techniques: automated exposure control, adjustment of the mA and/or kV according to patient size, use of iterative reconstruction technique. DLP: 654 mGy-cm FINDINGS: LOWER CHEST: The visualized lung bases are clear. There is no pleural effusion. CARDIOVASCULATURE: The heart is normal in size. There is no pericardial effusion. LIVER: The liver is normal in size and contour. No liver mass is identified. The hepatic and portal veins are patent. GALLBLADDER / BILE DUCTS: The gallbladder is surgically absent. There is no intra or extrahepatic biliary ductal dilatation. SPLEEN: The spleen is normal in size. No focal splenic lesion is identified. PANCREAS: The pancreas is unremarkable in appearance. ADRENAL GLANDS: Within normal limits. KIDNEYS/RETROPERITONEUM: No renal calculi are identified. There is no hydronephrosis. Again seen are bilateral cysts measuring 4.4 cm the lower pole of the right kidney and 2.3 cm at the upper pole of the left kidney. LYMPH NODES: No abdominal or pelvic lymphadenopathy. VASCULATURE: The abdominal aorta demonstrates atherosclerotic calcification, but is normal in caliber. MESENTERY/PERITONEUM: No free fluid. No masses. There is no free intraperitoneal gas. STOMACH: The stomach is collapsed, limiting evaluation. SMALL BOWEL: The small bowel is normal in caliber. COLON: There is a large amount of stool throughout the colon. There is diffuse colonic diverticulosis without evidence of diverticulitis. APPENDIX: Normal. URINARY BLADDER/PELVIC ORGANS: The urinary bladder is unremarkable. The patient is status post hysterectomy. BONES / SOFT TISSUES: No suspicious bony or soft tissue abnormalities. CT/CT abdomen pelvis w IV con IMPRESSION: Large amount of stool throughout the colon. Colonic diverticulosis without evidence of diverticulitis. No acute abnormality is identified. Electronically signed by: Malachi Castillo MD 06/25/2024 03:02 PM EDT Dictated By: Malachi Castillo MD Signed By: <Electronically signed by Malachi Castillo MD in OV> 06/25/24 1502 DD/ 1434 TD/TT: 06/25/24 1447 Fast Food Cook: [facility] External Provider IMG CT PROCEDURES Edited Result - Final * High Sensitivity Troponin I (06/25/2024 10:57 AM EDT) TROPONIN I HIGH SENSITIVITY <2.7 <3.5 - 17.0 ng/L [facility] Comment:The [place] high sens itivity Troponin-I results should beused in conjunction with other diagnostic information suchas ECG, clinical observations and information, and patientsymptoms to aid in the diagnosis of ID. 06/25/2024 10:5 7 AM EDT 06/25/2024 11:12 AM EDT us Generic External Data Provider LAB BLOOD ORDERAB LES Final Result [facility] [address], [place] [phone] * US Abdomen Limited (06/25/2024 10:46 AM EDT) Anatomical Region Laterality Modality Abdomen Ultrasound 06/25/2024 10:4 6 AM EDT Narrative 06/25/2024 11:11 AM EDT ? [facility] ?[address] ?[place] [address] ? Ultrasound Report ? Signed ? Patient: Zee Lara ?MR#: [id number] ?? [id number] ? : 1960 ?Acct:[id number] ? Age/Sex: 63 / F ?ADM Date: 06/25/24 ? Loc: HO.ED ? Attending Dr: ? Ordering Physician: Natalie Torres ROBOTICS SPECIALIST ?? Date of Service: 06/25/24 ?? Procedure(s): US abdomen limited ?? Accession Number(s): [id number] ? cc: ILDEFONSO DARDEN ROBOTICS SPECIALIST; Natalie Torres ROBOTICS SPECIALIST ? EXAMINATION: ?? US ABDOMEN LIMITED ? CLINICAL INFORMATION: ?? Right upper quadrant tenderness. Status post cholecystectomy.. ? COMPARISON: ?? Correlated to CT dated October 24, 2023. ? TECHNIQUE: ?? Real-time imaging of the right upper quadrant abdominal viscera using ?? grayscale technique. ? FINDINGS: ? PANCREAS: No peripancreatic fluid collections. ? LIVER: Liver measures 15 cm. Coarse echotexture. No nodular surface. No ?? gross solid or cystic lesion identified by the technologist. No ?? intrahepatic biliary ductal dilatation. ? GALLBLADDER: Cholecystectomy. ? COMMON BILE DUCT: 7 mm. ? RIGHT KIDNEY: 10 cm. Renal cortical thinning. Normal echotexture. No ?? hydronephrosis. There is a 4 cm well-defined anechoic lesion in the ?? lower pole without septations or flow on color Doppler interrogation.. ? FREE FLUID: None. ? US/US abdomen limited ?? IMPRESSION: ?? Probable hepatic steatosis. ?? 4 cm exophytic cyst, lower pole right kidney. ?? No hydronephrosis. ?? No ascites. ?? Common bile duct: 7 mm. ? Electronically signed by: ??Lars Flores MD ??06/25/2024 11:09 AM ?? EDT RP ? Dictated By: ?Lars Cheema MD ? Signed By: ?<Electronically signed by Lars Elder MD in OV> ? 06/25/24 1109 ? DD/ 1046 ? TD/TT: 06/25/24 1051 ? Fast Food Cook: ? Procedure Note Donboter, Image - 06/25/2024 [place] [address] Ultrasound Report Signed Patient: Frederic Lara#: [id number] : 9Acct:[id number] Age/Sex: 63 / FADM Date: 06/25/24 Loc: HO.ED Attending Dr: Ordering Physician: Natalie Torres NP Date of Service: 06/25/24 Procedure(s): US abdomen limited Accession Number(s): [id number] cc: ILDEFONSO DARDEN ROBOTICS SPECIALIST; Natalie Torres NP EXAMINATION: US ABDOMEN LIMITED CLINICAL INFORMATION: Right upper quadrant tenderness. Status post cholecystectomy.. COMPARISON: Correlated to CT dated October 24, 2023. TECHNIQUE: Real-time imaging of the right upper quadrant abdominal viscera using grayscale technique. FINDINGS: PANCREAS: No peripancreatic fluid collections. LIVER: Liver measures 15 cm. Coarse echotexture. No nodular surface. No gross solid or cystic lesion identified by the technologist. No intrahepatic biliary ductal dilatation. GALLBLADDER: Cholecystectomy. COMMON BILE DUCT: 7 mm. RIGHT KIDNEY: 10 cm. Renal cortical thinning. Normal echotexture. No hydronephrosis. There is a 4 cm well-defined anechoic lesion in the lower pole without septations or flow on color Doppler interrogation.. FREE FLUID: None. US/US abdomen limited IMPRESSION: Probable hepatic steatosis. 4 cm exophytic cyst, lower pole right kidney. No hydronephrosis. No ascites. Common bile duct: 7 mm. Electronically signed by: Lars Flores MD 06/25/2024 11:09 AM EDT RP Dictated By: Lars Cheema MD Signed By: <Electronically signed by Lars Elder MDin OV> 06/25/24 1109 DD/ 1046 TD/TT: 06/25/24 1051 Fast Food Cook: us [facility] External Provider IMG US PROCEDURES Edited Result - Final * (ABNORMAL) Urinalysis, Complete, with Reflex to Culture (06/25/2024 10:03 AM EDT) Color Urine Yellow [facility] Appearance Urine Clear [facility] PH 5.5 5.0 - 9.0 [facility] Glucose Urine UA Negative Negative mg/dL [facility] Urine Blood Negative Negative [facility] Specific [place] - Urine 1.020 1.005 - 1.025 [facility] Urine Protein 30 (1+)(A) Neg-Trace mg/dL [facility] Urine Ketones Negative Negative mg/dL [facility] Nitrite Urine Negative Negative [facility] Leukocyte Esterase Urine Negative Negative [facility] RBC Urine 0-2 0 - 2 /HPF [facility] Urine WBC 0-5 0 - 5 /HPF [facility] Urine Squamous Epithelial Cell 0-2 0 - 2 /HPF [facility] Urine Bacteria None Seen None Seen [facility] Hyaline Casts, Urine 0-2 0 - 2 /LPF [facility] 06/25/2024 10:0 3 AM EDT 06/25/2024 10:20 AM EDT Narrative [facility] - 06/25/2024 10:44 AM EDT [id number], Clean [employer]atch us Generic External Data Provider LAB URINE ORDERAB LES Final Result [facility] [address] [place] [phone] * (ABNORMAL) CBC auto differential (06/25/2024 7:52 AM EDT) White Blood Count 4.1(L) 4.8 - 10.8 X10*3/uL [facility] Red Blood Count 3.55(L) 4.20 - 5.50 X10*6/uL [facility] Hemoglobin 12.3 12.0 - 16.0 g/dl [facility] Hematocrit 35.9(L) 37.0 - 47.0 % [facility] Mean Corpuscular Volume 101.1(H) 80.0 - 98.0 fL [facility] Mean Corpuscular Hemoglobin 34.6(H) 27.0 - 33.0 pg [facility] Mean Corpuscular HGB Conc 34.3 31.0 - 35.0 g/dl [facility] Red Cell Distribution Width 12.6 11.0 - 16.0 % [facility] Platelet Count 176 160 - 400 X10*3/uL [facility] Mean Platelet Volume 8.1(L) 9.4 - 12.3 fL [facility] Neutrophils Percent Auto 67.0 45 - 73 % [facility] Imm Gran Pct Auto 0.2 0.0 - 0.4 % [facility] Lymphocytes Percent Auto 23.0 20 - 40 % [facility] Monocytes Percent Auto 6.4 2 - 11 % [facility] Eosinophils Percent Auto 2.9 0 - 4 % [facility] Basophils Percent Auto 0.5 0 - 2 % [facility] NRBC Pct Auto 0.0 0.0 - 0.2 /100WBC [facility] Neutrophils Absolute Auto 2.7 2.0 - 8.3 x10*3/uL [facility] Imm Gran Abs Auto 0.01 0.00 - 0.03 X10*3/uL [facility] Lymphocytes Absolute Auto 0.9(L) 1.2 - 4.9 X10*3/uL [facility] Monocytes Absolute Auto 0.3 0.1 - 1.2 X10*3/uL [facility] Eosinophils Absolute Auto 0.1 0.0 - 0.4 X10*3/uL [facility] Basophils Absolute Auto 0.0 0.0 - 0.2 X10*3/uL [facility] NRBC Abs Auto 0.000 0.0 - 0.012 X10*3/uL [facility] 06/25/2024 7:52 AM EDT 06/25/2024 7:56 AM EDT us Generic External Data Provider LAB BLOOD ORDERAB LES Final Result [facility] [address] [place] [phone] * (ABNORMAL) Comprehensive Metabolic Panel (06/25/2024 7:52 AM EDT) Sodium 141 135 - 145 mmol/L [facility] Potassium 3.8 3.3 - 5.1 mmol/L [facility] Chloride 111(H) 96 - 108 mmol/L [facility] Carbon Dioxide 24 22 - 29 mmol/L [facility] Anion Gap 10(L) 12 - 20 [facility] Urea Nitrogen (BUN) 18(H) 9 - 16 mg/dL [facility] Creatinine, Serum 0.90 0.5 - 1.4 mg/dL [facility] Creatinine Clr Calc Pharmacy -16.7 [facility] Comment:Provided height and weight: 7.62 cm,85.7 kg.eGFR (calculated from the MDRD study equation) and eCrCl(calculated from the Cockcroft-Gault equation) are based ondifferent parameters and may not yield comparable results.If eCrCl result is absurd, please check patient'sheight/weight. Estimated Glomerular Filt Rate >60 [facility] Comment:Chronic Kidney Disea se: Estimated GFR < 60 mL/min/[id number] Kidney Disease: Estimated GFR < 15 mL/min/1.73m2 Glucose 158(H) 60 - 115 mg/dL [facility] Calcium 8.7 8.4 - 10.2 mg/dL [facility] Bilirubin, Total 0.3 0.0 - 1.0 mg/dL [facility] Aspartate Amino Transferase 22 5 - 31 U/L [facility] Alanine Aminotransferase 15 0 - 31 U/L [facility] Total Protein 7.1 6.5 - 8.0 g/dL [facility] Albumin Level 3.9 3.5 - 5.0 g/dL [facility] Alkaline Phosphatase 63 39 - 117 U/L [facility] 06/25/2024 7:52 AM EDT 06/25/2024 7:56 AM EDT [facility] [place] Provider LAB BLOOD ORDERAB LES Final Result Performing Organization Address City/[facility]/ZIP Co de Phone Number [facility] [address] [place] [phone] * Hepatitis C Antibody with Reflex to HCV, RNA, Quantitative, Real-Time PCR (06/17/2024 12:04 PM EDT) Hepatitis C Antibody Nonreactive Nonreactive [facility] Comment:Antibodies to HCV no t detected; does not exclude early acuteHCV infection. Blood Venous blood specimen / Unknown 06/17/2024 12:04 PM EDT 06/17/2024 1:14 PM EDT [facility] LAB BLOOD ORDERABLES Final Resul t [facility] [address] [place] [phone] * RPR (Monitor) with Reflex to??Titer (06/17/2024 12:04 PM EDT) RPR (Monitor) w/Refl Titer NON-REACTI VE NON-REACT NARCISA [facility] Comment:THIS TEST WAS PERFOR MED AT:[employer] [place] [phone] BRAND MD Rapid Plasma Reagin Ab Titer TNP [facility] Blood Venous blood specimen / Unknown 06/17/2024 12:04 PM EDT 06/17/2024 1:14 PM EDT [facility] LAB BLOOD ORDERABLES Final Resul t [facility] [address] [place] [phone] * HIV-1/2 Antigen and Antibodies, Fourth Generation, with Reflexes (06/17/2024 12:04 PM EDT) HIV AB/AG Nonreactive Nonreactive [facility] Comment:HIV-1 p24 Ag and/or HIV-1/HIV-2 Ab not detected.A test result that is nonreactive does not exclude thepossibility of exposure to or infection with HIV-1 and/orHIV-2. Nonreactive results in this assay for individualswith prior exposure to HIV-1 and/or HIV-2 may be due toantigen and antibody levels that are below the limit ofdetection of this assay.The [employer] HIV Ag/Ab Combo assay result andsupplemental assay results should be interpreted inconjunction with the patient's clinical presentation,history and other laboratory results. If the results areinconsistent with clinical evidence, additional testing issuggested to confirm the result. Blood Venous blood specimen / Unknown 06/17/2024 12:04 PM EDT 06/17/2024 1:14 PM EDT us Ildefonso Darden [facility] LAB BLOOD ORDERABLES Final Resul t [facility] [address] [place] [phone] * (ABNORMAL) POCT HGB A1C (06/17/2024 10:56 AM EDT) Hemoglobin A1C 8.0(A) 4.0 - 6.0 % QC Media Lot # [id number] Lot# Expiration Date [id number] Blood 06/17/2024 10:5 6 AM EDT us Ildefonso Darden [facility] POINT OF CARE TEST ENTER/EDIT OR DERABLES Final Result * (ABNORMAL) POCT Glucose (06/17/2024 10:56 AM EDT) Glucose Blood, POC 234(A) 60 - 200 mg/dL [employer] Media Lot # [id number] Lot# Expiration Date [id number] Blood Capillary blood specimen / Unknown 06/17/2024 10:56 AM EDT us Ildefonso Darden [facility] POINT OF CARE TEST ENTER/EDIT OR DERABLES Final Result * Bacterial Vaginosis Panel (06/17/2024 12:00 AM EDT) TRICHOMONAS VAGINALIS DETECTION BY PCR NOT DETECTED Not Detect [facility] BACTERIAL VAGINOSIS DETECTION BY PCR NEGATIVE Negative [facility] Comment:The BV organism targ ets of the Xpert Xpress MVP test can becommensal in women; Xpert Xpress MVP positive results forbacterial vaginosis should be considered in conjunction withother clinical and patient information to determine thedisease status. Organisms that are not detected by the XpertXpress MVP test have also been reported to be associatedwith BV and aerobic vaginitis.The Xpert Xpress MVP test performance has not been evaluatedin patients under the age of 14. YENY GROUP DETECTION BY PCR NOT DETECTED Not Detect [facility] Yeny glab krusei PCR NOT DETECTED Not Detect [facility] Swab Vaginal structure / Unknown 06/17/2024 06/17/2024 Ildefonso Darden [facility] LAB MICROBIOLOGY - GENERAL ORDER JOHANNA Final Result [facility] [address] [place] [phone] * Chlamydia/N. Gonorrhoeae RNA, TMA, Urogenitial (06/17/2024 12:00 AM EDT) CT PCR NOT DETECTED Not Detect. [facility] Comment:A not detected test result does not exclude the possibilityof infection because test results can be affected byimproper specimen collection, concurrent antibiotic therapy,or the number of organisms in the specimen which may bebelow the sensitivity of the test. As with many diagnostictests, results from the Xpert CT/NG assay should beinterpreted in conjunction with other laboratory andclinical data available to the clinician.Xpert CT/NG performance has not been evaluated in patientsless than 14 years of age. The assay should not be used forthe evaluationof suspected sexual abuse or for other medico-legalindications. Additional testing is recommended in anycircumstance when false positive or false negative resultscould lead to adverse medical, social or psychologicalconsequences. NG PCR NOT DETECTED Not Detect. [facility] Comment:A not detected test result does not exclude the possibilityof infection because test results can be affected byimproper specimen collection, concurrent antibiotic therapy,or the number of organisms in the specimen which may bebelow the sensitivity of the test. As with many diagnostictests, results from the Xpert CT/NG assay should beinterpreted in conjunction with other laboratory andclinical data available to the clinician.Xpert CT/NG performance has not been evaluated in patientsless than 14 years of age. The assay should not be used forthe evaluationof suspected sexual abuse or for other medico-legalindications. Additional testing is recommended in anycircumstance when false positive or false negative resultscould lead to adverse medical, social or psychologicalconsequences. Swab (Vaginal Swab) 06/17/2024 06/17/2024 Narrative [facility] - 06/18/2024 3:07 AM EDT Vaginal us Ildefonso Darden ANP LAB MICROBIOLOGY - GENERAL ORDER JOHANNA Final Result [facility] [address] [place] [address] [phone] * BI Mammogram Screening Tomosynthesis Bilateral (04/15/2024 9:40 AM EST) Anatomical Region Laterality Modality Breast Bilateral Mammography 04/15/2024 9:40 AM EST Narrative 04/23/2024 12:46 PM EST ? [facility] [place] ? [address] ?[place] [address] ? Mammography Report ? Signed ? Patient: Jerrod Corley,Zee ?MR#: [id number] ?? [id number] ? : 1960 ?Acct:[id number] ? Age/Sex: 63 / F ?ADM Date: 01/13/25 ? Loc: HO.MAMMO ? Attending Dr: Ildefonso Darden ROBOTICS SPECIALIST ? Ordering Physician: KATALINA,ILDEFONSO ROBOTICS SPECIALIST ?Results: 1Negative ? Date of Service: /13/25 ?Follow Up: 1 Year From Orig ?? inal Mammogram ? Procedure(s): MM tomosynthesis screening BI ?? Accession Number(s): [id number] ? cc: KATALINA,ILDEFONSO FARMER ? EXAMINATION: ?? MM SCREENING DIGITAL BREAST TOMOSYNTHESIS, BILATERAL ? CLINICAL INFORMATION: ? Screening. Asymptomatic. ? COMPARISON: ?? Mammography: Comparison is made with available priors ? TECHNIQUE: ?? Digital breast mammography with tomosynthesis is performed in both the ?? craniocaudal and mediolateral oblique views along with computer-aided ?? detection (CAD). ? FINDINGS: ?? There are scattered areas of fibroglandular density (ACR BI-RADS breast ?? composition Category b). ? There are no significant masses, abnormal calcifications, or other ?? abnormalities. ? MM/MM tomosynthesis screening BI ?? IMPRESSION: ?? No mammographic evidence of malignancy. ? ASSESSMENT: ? BI-RADS BI-RADS 1 - Negative ? RECOMMENDATION: ?? Routine annual mammography screening. ? 1 year F/U ? This examination should not preclude the clinical evaluation of a ?? suspicious palpable abnormality. ? This patient's information was entered into a reminder system with a ?? target due date for their next mammogram. ? Electronically signed by: ??Jessica Lees DO ??04/23/2024 12:43 PM EST ? Dictated By: ?Jessica Lees DO ? Signed By: ?<Electronically signed by Jessica eLes, DO in OV> ? 04/23/24 1243 ? DD/ 0940 ? TD/TT: 04/15/24 0955 ? Fast Food Cook: ? Procedure Note Donboter, Image - 04/23/2024 [facility] [address] [place] [address] [place] [address] Mammography Report Signed Patient: Zee Lara#: [id number] : 9Acct:[id number] Age/Sex: 63 / FADM Date: 04/15/24 Loc: СЕРГЕЙ Attending Dr: Ildefonso Darden ROBOTICS SPECIALIST Ordering Physician: ILDEFONSO DARDENults: 1Negative Date of Service: 04/15/24Follow Up: 1 Year From Orig ina Mammogram Procedure(s): MM tomosynthesis screening BI Accession Number(s): [id number] cc: ILDEFONSO DARDEN NP EXAMINATION: MM SCREENING DIGITAL BREAST TOMOSYNTHESIS, BILATERAL CLINICAL INFORMATION: Screening. Asymptomatic. COMPARISON: Mammography: Comparison is made with available priors TECHNIQUE: Digital breast mammography with tomosynthesis is performed in both the craniocaudal and mediolateral oblique views along with computer-aided detection (CAD). FINDINGS: There are scattered areas of fibroglandular density (ACR BI-RADS breast composition Category b). There are no significant masses, abnormal calcifications, or other abnormalities. MM/MM tomosynthesis screening BI IMPRESSION: No mammographic evidence of malignancy. ASSESSMENT: BI-RADS BI-RADS 1 - Negative RECOMMENDATION: Routine annual mammography screening. 1 year F/U This examination should not preclude the clinical evaluation of a suspicious palpable abnormality. This patient's information was entered into a reminder system with a target due date for their next mammogram. Electronically signed by: Jessica Lees DO 04/23/2024 12:43 PM [facility] Dictated By: Jessica Lees DO Signed By: <Electronically signed by Jessica Lees DO in OV> 04/23/24 1243 DD/ 0940 TD/TT: 04/15/24 0955 Fast Food Cook: Ildefonso Darden ANP IMG BI PROCEDURES Edited Result - Final * Lipid Panel, Standard (11/14/2023 8:19 AM EDT) Triglycerides 143 <150 mg/dL [facility] Comment:Desirable Triglyceri de: less than 150 mg/dLBorderline High Triglyceride 150-199 mg/dLHigh Triglyceride: 200-499 mg/dLVery High Triglyceride: greater than or equal to 5OO mg/dL Cholesterol 132 <200 mg/dL [facility] Comment:Desirable Cholestero l: less than 200 mg/dLBorderline High Cholesterol: 200-239 mg/dLHigh Cholesterol: greater than 239 mg/dL LDL Cholesterol Calculated 52 <100 mg/dL [facility] Comment:Desirable LDL: less than 100 mg/dLNear Optimal/Above Optimal LDL: 110- 129 mg/dLBorderline High LDL: 130-159 mg/dLHigh LDL: 160-189 mg/dLVery High LDL: greater than or equal to 190 mg/dL HDL Cholesterol 52 >40 mg/dL [facility] Comment:Desirable HDL: great er than 40 mg/dL Note: This HDL assay may give artificially low results in patients with liver disease. 11/14/2023 8:19 AM EDT 11/14/2023 11:26 AM EDT [facility] LAB BLOOD ORDERABLES Final Resul t [facility] [address] [place] [phone] * (ABNORMAL) Colonoscopy (11/09/2020) Colonoscopy Abnormal(A ) Normal Historical Provider MD HEALTH MAINTENANCE Final Result from Last 3 Months or Most Recently Relevant to Health Maintenance [place] [address] [place] [address] - [facility] Care Teams Otorhinolaryngologist Relationship Specialty Start Date End Date Ildefonso Darden ANP [address] [place] [address] PCP - General Family Medicine 02/06/20 Mathew Gatica, NnacyD [address] [place] [phone] Pharmacist Internal Medicine 09/22/23
--- OUTSIDE RECORDS SUMMARY | 2024-07-10 11:14 | XMS_ITS | Encounter Summary ---
Author Organization [employer] Address [address] [facility] 7t [place] [address] Care Team Providers Care Hiv/Aids Care Nurse Name Role Phone Areli Elam Primary Care Provider [phone] Mathew Gatica PharmD Unavailable [phone] Reason for Visit * Reason Onset Date Comments Call Back Request 03/07/2023 Encounter Details Date Type Department Care Team (Late st Contact Info) Description 03/07/2023 Telephone [facility] [address], [place] [phone] Areli Elam ANP [address] [place], [place] [phone] Call Back Request Social History Tobacco Use [...] encounter Miscellaneous Notes * Telephone Encounter - Kelly Mealra - 03/07/2023 2:35 PM EST Tc from pt son Vahe returning call on behalf of pt. Mom is currently traveling and is unable to answer phone. Vahe is not on HIPAA (communications writer did not provide any information/DX). Vahe is requesting a call back tomorrow (03/08) on his phone so he can make a conference call with pt. Please contact Vahe at [phone] documented in this encounter Plan of Treatment Upcoming Encounters Date Type Department Care Team (Late st Contact Info) Description 07/15/2024 10:00 AM EDT Medication Management [facility] [address] [place] [phone] Mathew Gatica, PharmD [address] [place] [address] 09/17/2024 9:30 AM EDT Office Visit [facility] [address] [place] [address] Areli Elam, ANP [address] [place] [address] documented as of this encounter Visit Diagnoses Not on filedocumented in this encounter Additional Health Concerns Assessment Noted Time PHQ-9 Depression Total Score: 0 07/31/20 23 9:18 AM EDT documented as of this encounter Care Teams Hiv/Aids Care Nurse Relationship Specialty Start Date End Date Areli Elam ANP [address] [place] [address] PCP - General Family Medicine 02/06/20 Mathew Gatica PharmD [address] [place] [address] Pharmacist Internal Medicine 09/22/23 documented as of this encounter
--- OUTSIDE RECORDS SUMMARY | 2024-07-10 11:14 | XMS_ITS | Encounter Summary ---
Author Organization [email or web address] Address [address] [facility] 7t [place] [address] Care Team Providers Care Edge Sawyer Name Role Phone Areli Elam Primary Care Provider Mathew Gatica PharmD Unavailable [phone] Reason for Visit * Reason Comments Med Refill Encounter Details Date Type Department Care Team ([facility] st Contact Info) Description 06/18/2023 Refill [facility] [address] [place] [address] Lisset Cobian MD [address] [place] [address] Social History Tobacco Use Types Packs/Day Years [...] Description 07/15/2024 10:00 AM EDT Medication Management [address] [address] Mathew Gatica, Peter [address] [place] [address] 09/17/2024 9:30 AM EDT Office Visit [facility] [address] [place] [address] Areli Elam ANP [address] [place] [phone] documented as of this encounter Visit Diagnoses Not on filedocumented in this encounter Additional Health Concerns Assessment Noted Time PHQ-9 Depression Total Score: 0 11/01/19 23 9:18 AM EDT documented as of this encounter Care Teams Edge Sawyer Relationship Specialty Start Date End Date Areli Elam ANP [address] [place] [address] PCP - General Family Medicine 02/06/20 Mathew Gatica, NancyD [address] [place] [phone] Pharmacist Internal Medicine 09/22/23 documented as of this encounter
--- OUTSIDE RECORDS SUMMARY | 2024-07-10 11:14 | XMS_ITS | Encounter Summary ---
Author Organization [employer] Address [address] [facility] 7t [place] [address] Care Team Providers Care Sports Apparel Internship Name Role Phone Areli Elam Primary Care Provider [phone] Mathew Gatica PharmD Unavailable [phone] Reason for Visit * Reason Onset Date Comments Med Refill Appointment Request 04/29/2023 Encounter Details Date Type Department Care Team (Late st Contact Info) Description 04/29/[address] [facility] [address] [place], [place] [phone] Areli Elam ANP [address] [place], [place] [phone] Gastroesophageal reflux disease, unspecified whether esophagitis present Social History Tobacco Use Types Packs/Day Years [...] encounter Miscellaneous Notes * Telephone Encounter - Dolores Melgar - 05/08/2023 2:36 PM EST PCP REQUESTED A TELE. RN call BP call in 2-4 weeks; documented in this encounter Plan of Treatment Upcoming Encounters Date Type Department Care Team (Late st Contact Info) Description 07/15/2024 10:00 AM EDT Medication Management [facility] [address] [place] [phone] Mathew Gatica, PharmD [address] [place] [address] 09/17/2024 9:30 AM EDT Office Visit [facility] [address] [place] [address] Areli Elam ANP [address] [place] [address] documented as of this encounter Visit Diagnoses Diagnosis Gastroesophageal reflux disease, unspecified whether esophagitis present documented in this encounter Additional Health Concerns Assessment Noted Time PHQ-9 Depression Total Score: 0 11/01/19 9:18 AM EDT documented as of this encounter Care Teams [employer] Internship Relationship Specialty Start Date End Date Areli Elam ANP [address] [place] [address] PCP - General Family Medicine 02/06/20 Mathew Gatica, NancyD [address] [place] [phone] Pharmacist Internal Medicine 09/22/23 documented as of this encounter
--- OUTSIDE RECORDS SUMMARY | 2024-07-10 11:14 | XMS_ITS | Clinical Summary ---
Author Organization [facility] Address [address] [place] [address] Care Team Providers Care Drilling Field Specialist Name Role Phone Areli Elam NP Primary Care Provider [phone] Allergies Active Allergy Reactions Criticality Noted Date Comments Ciprofloxacin 11/02/2020 Doxycycline Other (see comments) 01/01/2021 Other reaction(s): Nausea / Vomiting Ibuprofen Other (see comments) 10/30/2020 Influenza Virus Vaccine High 02/11/2021 Other reaction(s): Swelling of upper limb Levofloxacin Other (see comments) 10/30/2020 Medications rosuvastatin (CRESTOR) 40 MG tablet Take 40 mg by mouth 1 (one) time each day Active lisinopril 40 MG tablet Take 20 mg by mouth 1 (one) time each day Active metFORMIN (GLUCOPHAGE) 500 MG tablet Take 500 mg by mouth 2 (two) times a day Active sertraline (ZOLOFT) 100 MG tablet Take 100 mg by mouth 1 (one) time each day Active Spiriva Respimat 1.25 MCG/ACT aerosol solution INHALE 2 PUFFS POR V A ORAL TODOS LOS D 2 Active melatonin tablet TOME PATTI TABLETA TODOS LOS D AL ACOSTARSE CUANDO SEA NECESARIO PARA DORMIR 2 Active dilTIAZem CD (CARDIZEM CD) 120 MG 24 hr capsule 180 mg 2 Active D3-1000 25 MCG (1000 UT) capsule TOME PATTI C PSULA TODOS LOS D 2 Active Eliquis 5 MG tablet 2 Active calcium carbonate (TUMS) 500 MG chewable tablet MASTIQUE PATTI TABLETA POR V A ORAL DOS VECES AL D A 2 Active famotidine (PEPCID) 20 MG tablet Take 20 mg by mouth in the morning and 20 mg in the evening. Active Mirabegron ER 25 MG tablet sustained-relea se 24 hour Take by mouth Activ e albuterol HFA (PROVENTIL HFA;VENTOLIN HFA) 108 (90 Base) MCG/ACT inhaler Inhale 2 puffs every 6 (six) hours if needed for wheezing Active loratadine (CLARITIN) 10 MG tablet Take 10 mg by mouth 1 (one) time each day Active gabapentin (NEURONTIN) 100 MG capsule TOME PATTI C NATANULA DOS VECES AL D A 2 Active glipiZIDE (GLUCOTROL XL) 2.5 MG 24 hr tablet 10 mg 3 Active Tresiba FlexTouch 100 UNIT/ML injection INJECT 12 UNITS UNDER THE SKIN ONCE DAILY. 3 Active Active Problems Problem Noted Date Diagnosed Date Chronic kidney disease, stage 2 (mild) 3 Stage 3a chronic kidney disease 06/06/2022 Bilateral adhesive capsulitis of shoulders 01/28 Overview (06/03/2022): she is following w/ ortho MRI of [...] capsulitis. Stage 3b chronic kidney disease 01/03/2022 Coronary arteriosclerosis 12/08/2021 Chronic kidney disease, stage 2 (mild) 2 Atrial fibrillation 03/01/2021 Essential hypertension 10/30/2020 Proteinuria 10/30/2020 Renal disorder due to type 2 diabetes mellitus 0 10/30/2020 Tobacco dependence syndrome 10/30/2020 Type 2 diabetes mellitus without complication Gastroparesis 03/18/2020 Overactive bladder 12/24/2019 Anxiety 04/12/2018 Hip pain 07/10/2017 Unspecified acquired deformity of hip 07/10/2017 Fibromyositis 08/24/2012 History of cholecystectomy 08/22/2012 H/O: hysterectomy 08/22/2012 Gastroesophageal reflux disease 08/22/2012 Obesity 08/22/2012 Irritable bowel syndrome 08/22/2012 Hyperlipidemia 08/22/2012 Depressive disorder 09/06/2011 Chronic obstructive pulmonary disease 09/06/2011 Immunizations Name Administration Dates Next Due Influenza, Unspecified 11/30/2010 Natasha SARS-COV-2 06/17/2020 Pneumococcal Conjugate 13-Valent 07/01/2021 Pneumococcal Polysaccharide 11/23/2007 TD Preservative Free 09/27/2016 Td 09/14/2007 Tdap 05/14/2020 Family History Medical History Relation Comments Diabetes Father Hypertension Father Diabetes Mother Hypertension Mother Hypertension Sibling 1 Diabetes Sibling 2 Relation Status Comments Father Mother Sibling 1 Sibling 2 Social History Tobacco Use Types Packs/Day Years Used Date Smoking Tobacco: Every Day Cigarettes Smokeless Tobacco: Never Tobacco Cessation:Ready to Q uit: Not Asked; Counseling Given: Not Answered Alcohol Use Standard Drinks/Week Comments No 0 (1 standard drink = 0.6 oz pur e alcohol) Comments Unknown Sex and Gender Information Value Date Recorded Sex Assigned at Not on file Legal Sex Female 4:46 PM EST Gender Identity Not on file Sexual Orientation Not on file Last Filed Vital Signs Vital Sign Reading Time Taken Comments Blood Pressure 118/68 01/29/2024 1:08 PM EDT Pulse 85 01/29/2024 1:08 PM EDT Temperature - - Respiratory Rate - - Oxygen Saturation 96% 01/29/2024 1:08 PM EDT Inhaled Oxygen Concentration - - Weight 86.7 kg (191 lb 3.2 oz) 01/29/2024 1:08 P M EDT Height 162.6 cm (5' 4 ) 01/15/2019 12:00 PM EDT Body Mass Index 32.82 01/15/2019 12:00 PM EDT Plan of Treatment Upcoming Encounters Date Type Department Care Team (Late st Contact Info) Description 10/21/2024 1:15 PM EDT Office Visit [facility] [address] [place] [address] Ramo Beavers MD [address] [phone] Health Maintenance Due Date Last Done Comments Breast Cancer Screening 1960 Colorectal Cancer Screening: Annual FOBT 06/28/2007 Colorectal Cancer Screening: Colonoscopy 06/28/2007 Colorectal Cancer Screening: Sigmoidoscopy 06/28/2007 Diabetes: Ophthalmology Exam 05/04/2020 Diabetes: Pedal Pulse Checked 05/04/2020 Diabetes: Sensory Foot Exam 05/04/2020 Diabetes: Visual Foot Exam 05/04/2020 Diabetes: Hemoglobin A1C 02/16/2024 024, 04/20/2022 Pneumococcal Vaccine: 65+ Years Completed 05/08/2023, 07/01/2021, 11/23/2007 Hepatitis B Vaccine Aged Out No longe r eligible based on patient's age to complete this topic Insurance * Guarantor: Zee Elder Account Type Relation to Patient Date of Phone Billing Address Personal/Family Self [address] ([id number]) [place] [phone] [facility] ([id number]) Care Teams Drilling Field Specialist Relationship Specialty Start Date End Date Areli Elam NP PCP - General Nurse Practitioner 11/02/20
== END 2024-07-10 10:31 | disposition home or self-care (01) ==
LOC: HO.HPS 10:03
PROVIDERS: PCP Nurse Practitioner Primary Care; Visit Provider Internal Medicine
DX: J98.4 Other disorders of lung (principal); F17.210 Nicotine dependence, cigarettes, uncomplicated
CPT/HCPCS: 99213

== ENCOUNTER → 2024-07-10 10:02 | Outpatient (BNVA) | payer OTHER, SELFPAY | PROVIDERS: PCP Nurse Practitioner Primary Care; Visit Provider Internal Medicine | DX: J98.4 Other disorders of lung (principal); Z87.891 Personal history of nicotine dependence | CPT/HCPCS: 99212 ==

== ENCOUNTER 2024-08-14 11:06 | Outpatient (AMB) | payer OTHER, SELFPAY ==
--- NOTE | 2024-08-14 11:32 | MHC.OFFVIS ---
Vital Signs 08/14/24 11:33 Height 5 ft 3 in Weight 191 lb 12.835 oz BMI 34.0 Intake Visit Reasons: 8 months follow up Intake Note: Ayala presents for 8 month follow up Allergies ibuprofen [IBUPROFEN] Allergy (Severe, Verified 08/14/24 11:34) SICK TO MY STOMACH ciprofloxacin [From CIPRO] Allergy (Intermediate, Verified 08/14/24 11:34) SICK doxycycline Allergy (Intermediate, Verified 08/14/24 11:34) Dizziness levofloxacin [From LEVAQUIN] Allergy (Intermediate, Verified 08/14/24 11:34) SICK , nausea, dizziness x days flu vaccine Allergy (Intermediate, Uncoded 08/14/24 11:34) Swelling HPI HPI 8 months follow up: Details: Assessment & Plan (1) GERD (gastroesophageal reflux disease): Code(s): K21.9 - Gastro-esophageal reflux disease without esophagitis Category: Medical Qualifiers: Esophagitis presence: with esophagitis (2) Squamous cell carcinoma of anal canal: Code(s): C21.1 - Malignant neoplasm of anal canal Category: Medical Plan She really suffered with the radiation therapy for her rectal cancer. She had severe burning in her abdomen in her rectum with a lot of rectal discharge. She was so afraid to eat she lost 35 lb but she is now gaining. The reason she was afraid to eat is because moving her bowels was so severely painful in her rectum. However, she is recovered now. Had a PET scan - but I could not retrieve it from the website and she does not know the results. Continues to do well on her GI regimen. The famotidine in the dicyclomine are controlling her GERD in her IBS well. ROV 6 mos. Medications: Refilled famotidine 20 mg PO BID 60 tabs 6RF K21.9 - Gastro-esophageal reflux disease without esophagitis dicyclomine 10 mg PO QID 360 caps 1RF R10.9 - Unspecified abdominal pain TODAY'S VISIT The famotidine in the dicyclomine are controlling her GERD in her IBS well. She is feeling better since completing her radiation therapy for rectal cancer. She sees oncology again next month and then at longer intervals. ROV 6 mos. PFSH Medical History (Updated 08/14/24 @ 12:17 by RAULITO Gunn) CKD (chronic kidney disease) stage 3, GFR 30-59 ml/min Adhesive capsulitis of right shoulder Acute rhinosinusitis Smoking greater than 30 pack years Anal squamous cell carcinoma Chest discomfort Shoulder pain Diabetes Pneumonia Pneumonia Colon cancer screening Personal history of nicotine dependence Restrictive lung disease Dyspnea on exertion Babesiasis Paroxysmal atrial fibrillation CAD (coronary artery disease) Asthma Bronchitis Obesity (BMI 30-39.9) Vitamin D deficiency Osteopenia Dyslipidemia Hypertension Diabetic 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 GERD (gastroesophageal reflux disease) Surgical History (Updated 08/14/24 @ 12:16 by RAULITO Gunn) Hx of cataract surgery Hx of foot surgery Hx of colonoscopy History of esophagogastroduodenoscopy (EGD) Family History Father Heart failure Diabetes mellitus Mother Cholangiocarcinoma Diabetes mellitus Family history of hypertension Family history of heart attack Brother Lung cancer Family/Other Breast cancer Sister Social History Household Members: Family Housing: House Do you presently have visiting nurse or other home services: No Alcohol intake: current Alcohol intake frequency: a few times a month Alcohol type: beer Patient Tobacco Use Status: Former Tobacco user Tobacco use type: Cigarette Years Smoked: 45 e-Cigarette/Vaping Use: Never Used Advance Directives Date on File: 10/19/22 service: No Current occupational status: unemployed Review of Systems Const Denies fatigue, Denies fever(s), Denies night sweats, Denies poor appetite, Reports weight gain and Denies weight loss ENT Reports Normal hearing present, Denies dental pain, Denies dysphagia, Denies hearing loss, Denies mouth pain, Denies odynophagia, Denies throat swelling, Denies tongue swelling and Reports other (Dentition adequate) Card Reports no additional complaints Resp Reports no additional complaints GI Details: Denies abdominal pain, Denies melena, Denies bloating, Denies hematochezia, Denies constipation, Reports GI cramping, Denies dysphagia, Denies excessive flatus, Denies early satiety, Reports heartburn, Denies diarrhea, Denies nausea, Denies odynophagia, Denies vomiting and Denies hematemesis Skin/Breast Denies pruritus, Denies lesions, Denies rash and Denies jaundice Neuro Reports Normal hearing present and Denies Abnormal speech present Endo Denies fatigue Aller/Immun Denies throat swelling and Denies tongue swelling Physical Exam Const General: cooperative, no acute distress, well developed and well groomed Nutritional Appearance: well nourished and obese Orientation/consciousness: oriented to person, oriented to place and oriented to time Limitations: language barrier HEENT Head: Yes normocephalic and Yes atraumatic Eyes General: appearance normal, both eyes and all related structures Pupils: Equal, round and reactive pupils present Neck Neck: Yes normal visual inspection and Yes no lymphadenopathy Thyroid: Thyroid normal Resp Effort & Inspection: normal respiratory effort and able to speak in complete sentences Auscultation: clear to auscultation bilaterally Cardio Rate: regular rate Rhythm: regular rhythm Heart sounds: Normal, physiologic split S2 sound present Peripheral pulses: radial pulses present and posterior tibial pulses present GI Inspection: No distended, No Abdominal panniculus present and Yes obesity Palpation (GI): Soft to palpation, nontender, no guarding, not rigid and No hepatosplenomegaly present Percussion: Yes normal to percussion Auscultation: normal bowel sounds Rectal Exam - Female: deferred Skin General skin exam: no rashes or lesions noted, turgor normal, skin not dry, no jaundice, No spider nevi and no striae Rashes: no rashes Nails: normal Neuro General: oriented to person, oriented to place and oriented to time Cranial nerves: Yes Equal, round and reactive pupils present and Yes Normal hearing present Speech: No Abnormal speech present Extrem General: Yes normal to inspection, No clubbing, No cyanosis and No edema Psych Appearance: grossly normal and well kempt Mental Status: mental status grossly normal Speech and movement: Normal speech and movement present Affect: normal affect Attitude: cooperative Thought process: Normal thought process present and not confabulating Thought content: Normal thought content present Insight: Limited insight present (Psych) Judgement: Limited judgement present (Psych) Assessment & Plan Assessment & Plan (1) GERD (gastroesophageal reflux disease): Code(s): K21.9 - Gastro-esophageal reflux disease without esophagitis Category: Medical Qualifiers: Esophagitis presence: with esophagitis (2) Constipation: Code(s): K59.00 - Constipation, unspecified Category: Medical (3) Tubular adenoma of colon: Comment: 2022= 3 polyps and a rectal carcinoma, 2020= 2 TA is Code(s): D12.6 - Benign neoplasm of colon, unspecified Category: Medical (4) Abdominal cramping: Code(s): R10.9 - Unspecified abdominal pain Category: Medical Plan The famotidine in the dicyclomine are controlling her GERD in her IBS well. She is feeling better since completing her radiation therapy for rectal cancer. She sees oncology again next month and then at longer intervals. ROV 6 mos. Medications: Refilled sennosides-docusate sodium 8.6-50 mg (Senna with Docusate Sodium) 1 tab-cap PO BEDTIME 14 tabs 0RF famotidine 20 mg PO BID 180 tabs 2RF K21.9 - Gastro-esophageal reflux disease without esophagitis dicyclomine 10 mg PO QID 360 caps 1RF R10.9 - Unspecified abdominal pain Discontinued polyethylene glycol 3350 (Miralax) Discontinued Reason: Patient Completed Course 17 grams PO DAILY 119 grams 0RF Coding Level of Care Code Est Pt Level 3 (15467) Diagnoses GERD (gastroesophageal reflux disease) K21.9 Esophagitis presence: with esophagitis Constipation K59.00 Tubular adenoma of colon D12.6 Abdominal cramping R10.9
[2024-08-14 11:33] VITALS: BMI 34.0
--- OUTSIDE RECORDS SUMMARY | 2024-08-14 12:12 | XMS_ITS | Encounter Summary ---
Author Organization [employer] Address 75 [facility] 7t [place] [address] Care Team Providers Care Multi Slide Machine Tender Name Role Phone Areli Elam Primary Care Provider [phone] Mathew Gatica PharmD Unavailable [phone] Reason for Visit * Reason Onset Date Comments Med Refill Appointment Request 04/29/2023 Encounter Details Date Type Department Care Team (Late st Contact Info) Description 04/29/2023 Refill [facility] [address] [place], [place] [phone] Areli Elam ANP [address] [place] [address] Gastroesophageal reflux disease, unspecified whether esophagitis present [...] Care Team (Late st Contact Info) Description 09/17/2024 9:30 AM EDT Office Visit [facility] [address] [place] [address] Areli Elam ANP [address] [place] [address] documented as of this encounter Visit Diagnoses Diagnosis Gastroesophageal reflux disease, unspecified whether esophagitis present documented in this encounter Additional Health Concerns Assessment Noted Time PHQ-9 Depression Total Score: 0 11/01/19 23 9:18 AM EDT documented as of this encounter Care Teams Multi Slide Machine Tender Relationship Specialty Start Date End Date Areli Elam ANP [address] [place] [phone] PCP - General Family Medicine 02/06/20 Mathew Gatica, NancyD [address] [place] [phone] Pharmacist Internal Medicine 09/22/23 documented as of this encounter
--- OUTSIDE RECORDS SUMMARY | 2024-08-14 12:12 | XMS_ITS | Encounter Summary ---
Author Organization [employer] Address [address] [facility] 7t [place] [address] Care Team Providers Care Meat Cooler Name Role Phone Areli Elam Primary Care Provider [phone] Mathew Gatica PharmD Unavailable [phone] Reason for Visit * Reason Comments Med Refill Encounter Details Date Type Department Care Team ([facility] st Contact Info) Description 06/18/2023 Refill [facility] [address] [place] [address] Lisset Cobian MD [address] [place] [address] Social History Tobacco Use Types Packs/Day Years [...] Description 09/17/2024 9:30 AM EDT Office Visit [facility] [address] [place] [address] Areli Elam ANP [address] [place] [address] documented as of this encounter Visit Diagnoses Not on filedocumented in this encounter Additional Health Concerns Assessment Noted Time PHQ-9 Depression Total Score: 0 11/01/19 23 9:18 AM EDT documented as of this encounter Care Teams Meat Cooler Relationship Specialty Start Date End Date Areli Elam ANP [address] [place] [address] PCP - General Family Medicine 02/06/20 Mathew Gatica, Peter [address] [place] [address] Pharmacist Internal Medicine 09/22/23 documented as of this encounter
--- OUTSIDE RECORDS SUMMARY | 2024-08-14 12:12 | XMS_ITS | Encounter Summary ---
Author Organization [employer] Address [address] [facility] 7t [place] [address] Care Team Providers Care Automotive Lot Attendant Name Role Phone Areli Elam Primary Care Provider [phone] Mathew Gatica PharmD Unavailable [phone] Reason for Visit * Reason Comments Med Refill Encounter Details Date Type Department Care Team (Late st Contact Info) Description 01/09/2024 Refill [facility] [address] [place], [place] [phone] Areli Elam ANP 230 [place] [address] Diabetic 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 ([facility]) Social History Tobacco Use Types Packs/Day Years [...] Description 09/17/2024 9:30 AM EDT Office Visit [facility] MED[facility] [address] [place] [address] Areli Elam ANP [address] [place] [address] documented as of this encounter Goals Goal Patient Goal Type Associated Problems Recent Progress Patient-Stated? Author Blood Pressure < 140/90 Blood Pressure 132/72(2024 10:06 AM EDT) No Mathew Gatica, Peter Hemoglobin A1c < 7 Result Component 8(06/17/2024 10:56 AM EDT) No Mathew Gatica PharmD Note: Goal of 8% may be reasonable given patient's age, history of Cancer, HTN, CKD, CAD documented as of this encounter Visit Diagnoses Diagnosis Diabetic 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 (CMS/HCC) documented in this encounter Additional Health Concerns Assessment Noted Time PHQ-9 Depression Total Score: 0 11/16/19 24 9:38 AM EDT documented as of this encounter Care Teams Automotive Lot Attendant Relationship Specialty Start Date End Date Areli lEam ANP [address] [place] [address] PCP - General Family Medicine 02/06/20 Mathew Gatica, NancyD [address] [place] [address] Pharmacist Internal Medicine 09/22/23 documented as of this encounter
--- OUTSIDE RECORDS SUMMARY | 2024-08-14 12:12 | XMS_ITS | Encounter Summary ---
Author Organization [employer] Address [address] [facility] 7t [place] [address] Care Team Providers Care Shelter Supervisor Name Role Phone Areli Elam Primary Care Provider [phone] Mathew Gatica PharmD Unavailable [phone] Reason for Visit * Reason Comments Med Change Request Encounter Details Date Type Department Care Team ([facility] st Contact Info) Description 06/30/2023 Refill [facility] [address] [place], [place] [phone] Areli Elam ANP [address] [place] [address] Non-seasonal allergic rhinitis, unspecified trigger Social History [...] Description 09/17/2024 9:30 AM EDT Office Visit [facility] MEDICINE [address] [place] [address] Areli Elam ANP [address] [place] [address] documented as of this encounter Visit Diagnoses Diagnosis Non-seasonal allergic rhinitis, unspecified trigger documented in this encounter Additional Health Concerns Assessment Noted Time PHQ-9 Depression Total Score: 0 11/01/19 23 9:18 AM EDT documented as of this encounter Care Teams Shelter Supervisor Relationship Specialty Start Date End Date Areli Elam ANP [address] [place] [phone] PCP - General Family Medicine 02/06/20 Mathew Gatica, NancyD [address] [place] [address] Pharmacist Internal Medicine 09/22/23 documented as of this encounter
--- OUTSIDE RECORDS SUMMARY | 2024-08-14 12:12 | XMS_ITS | Clinical Summary ---
Author Organization [facility] Address [address] [place] [address] Care Team Providers Care Cattle Manager Name Role Phone Areli Elam NP Primary Care Provider [phone] Allergies Active Allergy Reactions Criticality Noted Date [...] 09/06/2011 Chronic obstructive pulmonary disease 09/06/2011 Immunizations Immunization Administration Dates Next Due Influenza, Unspecified 11/30/2010 [...] Visit [facility] [address] [place] [address] Ramo Beavers MD [address] [phone] Health Maintenance Due Date Last Done Comments Breast Cancer Screening 1960 Colorectal Cancer Screening: Annual FOBT 06/28/2007 Colorectal Cancer Screening: Colonoscopy 06/28/2007 Colorectal Cancer Screening: Sigmoidoscopy 06/28/2007 Diabetes: Ophthalmology Exam 05/04/2020 Diabetes: Pedal Pulse Checked 05/04/2020 Diabetes: Sensory Foot Exam 05/04/2020 Diabetes: Visual Foot Exam 05/04/2020 Diabetes: Hemoglobin A1C 02/16/2024 024, 04/20/2022 Pneumococcal Vaccine: 50+ Years Completed 05/08/2023, 07/01/2021, 11/23/2007 Pneumococcal Vaccine: Peds ( 0 to 5 Years) and At-Risk Patients (6 to 49 Years) Discontinued 05/08/2023, 07/01/2021, 11/23/2007 Hepatitis B Vaccine Aged Out No longe r eligible based on patient's age to complete this topic [place] [address] ([id number]) [place] [phone] [facility] ([id number]) Care Teams Cattle Manager Relationship Specialty Start Date End Date Areli Elam NP PCP - General Nurse Practitioner 11/02/20
--- OUTSIDE RECORDS SUMMARY | 2024-08-14 12:12 | XMS_ITS | Encounter Summary ---
Author Organization [employer] Address [address] [facility] 7t [place] [address] Care Team Providers Care Creative Lead Name Role Phone Areli Elam Primary Care Provider [phone] Mathew Gatica PharmD Unavailable [phone] Reason for Visit * Reason Comments Med Refill Encounter Details Date Type Department Care Team ([facility] st Contact Info) Description 11/18/2023 Refill [facility] [address] [place] [address] Lisset Cobian MD [address] [place] [address] Social History Tobacco Use Types Packs/Day Years [...] your housing situation today? I have isa sing 11/16/[address] you li [...] Description 09/17/2024 9:30 AM EDT Office Visit [facility] [address] [place] [address] Areli Elam ANP [address] [place] [address] documented as of this encounter Goals Goal Patient Goal Type Associated Problems Recent Progress Patient-Stated? Author Blood Pressure < 140/90 Blood Pressure 132/72(2024 10:06 AM EDT) No Mathew Gatica PharmD Hemoglobin [...] documented as of this encounter Care Teams Creative Lead Relationship Specialty Start Date End Date Areli Elam ANP [address] [place] [phone] PCP - General Family Medicine 02/06/20 Mathew Gatica PharmD [address] [place] [address] Pharmacist Internal Medicine 09/22/23 documented as of this encounter
--- OUTSIDE RECORDS SUMMARY | 2024-08-14 12:12 | XMS_ITS | Encounter Summary ---
Author Organization [employer] Address [address] [facility] 7t [place] [address] Care Team Providers Care Professor Of Exercise Science Name Role Phone Areli Elam Primary Care Provider [phone] Mathew Gatica PharmD Unavailable [phone] Reason for Visit * Reason Onset Date Comments Call Back Request 03/07/2023 Encounter Details Date Type Department Care Team ([facility] st Contact Info) Description 03/07/2023 Telephone [facility] MEDICINE [address] [place], [place] [phone] Areli Elam ANP [address] [place], [place] [phone] Call Back Request Social History Tobacco Use [...] from pt returning call. Please contact at [phone] Cambodian * Telephone Encounter - JIN Alva - [...] Description 09/17/2024 9:30 AM EDT Office Visit [facility] [address] [place], [place] [phone] Areli Elam ANP [address] [place] [address] documented as of this encounter Visit Diagnoses Not on filedocumented in this encounter Additional Health Concerns Assessment Noted Time PHQ-9 Depression Total Score: 0 11/01/19 23 9:18 AM EDT documented as of this encounter Care Teams Professor Of Exercise Science Relationship Specialty Start Date End Date Areli Elam ANP [address] [place], [place] [phone] PCP - General Family Medicine 02/06/20 Mathew Gatica, NancyD [address] [place] [phone] Pharmacist Internal Medicine 09/22/23 documented as of this encounter
--- OUTSIDE RECORDS SUMMARY | 2024-08-14 12:12 | XMS_ITS | Encounter Summary ---
Author Organization [employer] Address [address] [facility] 7t [place] [address] Care Team Providers Care Film Sound Coordinator Name Role Phone Areli Elam Primary Care Provider [phone] Mathew Gatica PharmD Unavailable [phone] Reason for Visit * Reason Onset Date Comments Call Back Request 03/07/2023 Encounter Details Date Type Department Care Team ([facility] st Contact Info) Description 03/07/[address] [facility] MEDICINE 230 [place], [place] [phone] Areli Elam ANP [address] [place], [place] [phone] Call Back Request Social History Tobacco Use [...] Miscellaneous Notes * Telephone Encounter - Kelly Melara - 03/07/2023 2:35 PM EST Tc from pt son Vahe returning call on behalf of pt. Mom is currently traveling and is unable to answer phone. Vahe is not on HIPAA (conventional mortgage underwriter did not provide any information/DX). Vahe is requesting a call back tomorrow (03/08) on his phone so he can make a conference call with pt. Please contact Vahe at [phone] documented in this encounter Plan of Treatment Upcoming Encounters Date Type Department Care Team (Late st Contact Info) Description 09/17/2024 9:30 AM EDT Office Visit [facility] MEDICINE [address] [place] [address] Areli Elam ANP [address] [place] [address] documented as of this encounter Visit Diagnoses Not on filedocumented in this encounter Additional Health Concerns Assessment Noted Time PHQ-9 Depression Total Score: 0 11/01/19 9:18 AM EDT documented as of this encounter Care Teams Film Sound Coordinator Relationship Specialty Start Date End Date Areli Elam ANP [address] [place] [address] PCP - General Family Medicine 02/06/20 Mathew Gatica, PharmD [address] [place] [address] Pharmacist Internal Medicine 09/22/23 documented as of this encounter
--- OUTSIDE RECORDS SUMMARY | 2024-08-14 12:12 | XMS_ITS | Encounter Summary ---
Author Organization [employer] Address [address] [facility] 7t [place] [address] Care Team Providers Care Vp Customer Development Name Role Phone Areli Elam Primary Care Provider [phone] Mathew Gatica PharmD Unavailable [phone] Reason for Visit * Reason Comments Med Refill Encounter Details Date Type Department Care Team (Late st Contact Info) Description 01/08/2023 Refill [facility] MEDICINE [address] [place], [place] [phone] Areli Elam ANP [address] [place] [address] Diabetic 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 ([facility]) Social History Tobacco Use Types Packs/Day Years [...] Description 09/17/2024 9:30 AM EDT Office Visit [facility] MED[facility]INE [address] [place] [address] Areli Elam ANP [address] [place] [address] documented as of this encounter Visit Diagnoses Diagnosis Diabetic 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 (CMS/HCC) documented in this encounter Additional Health Concerns Assessment Noted Time PHQ-9 Depression Total Score: 0 11/01/19 23 9:18 AM EDT documented as of this encounter Care Teams Vp Customer Development Relationship Specialty Start Date End Date Areli Elam ANP [address] [place] [address] PCP - General Family Medicine 02/06/20 Mathew Gatica, Peter [address] [place] [phone] Pharmacist Internal Medicine 09/22/23 documented as of this encounter
--- OUTSIDE RECORDS SUMMARY | 2024-08-14 12:12 | XMS_ITS | Encounter Summary ---
Author Organization [employer] Address [address] [facility] 7t [place] [address] Care Team Providers Care Campaign Management Senior Manager Name Role Phone Areli Elam Primary Care Provider [phone] Mathew Gatica PharmD Unavailable [phone] Reason for Visit * Reason Comments Med Refill Encounter Details Date Type Department Care Team (Late st Contact Info) Description 06/18/2023 Refill [facility] MEDICINE 230 [place], [place] [phone] Areli Elam ANP [address] [place] [address] Diabetic 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 ([facility]) Social History Tobacco Use Types Packs/Day [...] Description 09/17/2024 9:30 AM EDT Office Visit [facility] MEDICINE [address] [place] [address] Areli Elam ANP [address] [place] [address] documented as of this encounter Visit Diagnoses Diagnosis Diabetic 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 (CMS/HCC) documented in this encounter Additional Health Concerns Assessment Noted Time PHQ-9 Depression Total Score: 0 11/01/19 23 9:18 AM EDT documented as of this encounter Care Teams Campaign Management Senior Manager Relationship Specialty Start Date End Date Areli Elam ANP [address] [place] [phone] PCP - General Family Medicine 02/06/20 Mathew Gatica, Peter [address] [place] [phone] Pharmacist Internal Medicine 09/22/23 documented as of this encounter
--- OUTSIDE RECORDS SUMMARY | 2024-08-14 12:12 | XMS_ITS | Clinical Summary ---
Author Organization [employer] Address [address] [facility] [address] [place] [address] Care Team Providers Care [employer]ging [employer] Director Name Role Phone Ildefonso Darden Primary Care Provider [phone] Mathew Gatica PharmD Unavailable [phone] Allergies Active Allergy Reactions Criticality Noted Date [...] current use of insulin, unspecified CKD stage (CMS/[facility]) USE TO TEST ONCE DAILY 50 strip 5 04/18/19 24 Active famotidine (Pepcid) 20 MG tabletIndicatio ns:Gastroesopha geal reflux disease, unspecified whether esophagitis present TAKE 1 TABLET BY MOUTH TWICE A DAY NEEDED FOR ACID REFLUX 40 tablet 06/16/19 24 Active Alcohol Swabs padsIndications :Hyperglycemia due to diabetes mellitus ([facility]/HCC) 1 each if needed (to clean skin). 100 each 11 08/14/19 24 Active Blood Glucose Monitoring Suppl (FreeStyle Lite) w/Device kitIndications: Hyperglycemia due to diabetes mellitus ([facility]/HCC) 1 each Once per day. Use to check blood sugar TID 1 kit 08/14/19 24 Active pen needle 31G x 6 mm miscIndications :Hyperglycemia due to diabetes mellitus ([facility]/HCC) Use as instructed 100 each 12 [...] 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 ([facility]/HCC) TAKE 1 TABLET (10 MG) BY MOUTH BEFORE BREAKFAST AND BEFORE EVENING MEAL. 180 tablet 1 10/09/19 24 Active Ventolin HFA 108 (90 Base) MCG/ACT inhalerIndicati ons:Chronic obstructive pulmonary disease, unspecified COPD type ([facility]/HCC) INHALE 2 PUFFS EVERY 6 HOURS IF NEEDED FOR WHEEZING. 18 g 5 11/22/19 24 Active rosuvastatin (Crestor) 40 MG tabletIndicatio ns:Diabetic 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 ([facility]/HCC) TOME PATTI TABLETA TODOS LOS DÍAZ EN LA MANANA 90 tablet 3 01/22/20 24 Active insulin degludec (Tresiba FlexTouch) 100 UNIT/ML injectionIndica tions:Hyperglyc emia due to diabetes mellitus ([facility]/HCC) Inject 14 units under the skin [...] associated with type 2 diabetes mellitus (CMS/HCC) TAKE 2 TABLETS BY MOUTH TWICE DAILY [...] g 06/18/19 25 026 Active Continuous Glucose Fire Apparatus Sprinkler Inspector (FreeStyle Vicky 3 [place]) deviceIndicatio ns:Diabetic nephropathy associated with type 2 [...] associated with type 2 diabetes mellitus (CMS/HCC) Use to test blood sugar 4 times daily in case of CGM failure or extremes of BG 100 each 11 06/18/19 25 026 Active ezetimibe (Zetia) 10 MG tablet TAKE 1 TABLET BY MOUTH EVERY DAY 90 tablet 3 07/03/19 25 Active magnesium oxide (Mag-Ox) 400 MG tablet Take 400 mg by mouth Once per day. 11/14/19 24 025 Discontinued(M ed list cleanup (will not trigger notification to Pharmacy)) Active Problems Problem Noted Date Diagnosed Date [...] w/ Drs. Ty, Davonte, and referred to [facility] Dr. Oleary radiation therapy. She had her [...] This has been scheduled for 05/11 at [facility]. She is a candidate for combined modality therapy with radiation along with chemotherapy with mitomycin/fluoropyrimidine. Will treat with mitomycin 12 mg per m2 IV bolus day 1 and 29 along with capecitabine 825 mg per m2 b.i.d. Monday through Monday on the days that she receives RT. A referral has been made for Dr. Oleary from radiation therapy at [facility]. She tells me she lives nearby and [...] 11/08/2022 Pneumonia 10/31/2022 11/08/2022 Pre-op examination 10/31/2022 Shoulder pain 10/31/2022 11/08/2022 Skin rash 10/31/2022 [...] Encounters Date Type Department Care Team Description 08/08/2024 Travel 07/26/2024 Travel 07/16/2024 Orders Only [facility] [address] [place] [address] Chris Ruggiero MD Type 2 diabetes mellitus without complication, with long-term current use of insulin ([facility]) (Primary Dx) 07/15/2024 Telephone [facility] [address] [place] [address] Ildefonso Darden ANP 07/15/2024 Travel 07/02/2024 Refill [facility] [address] [place] [address] Ildefonso Darden ANP 06/26/2024 Telephone [facility] [address] [place] [address] Ildefonso Darden ANP 06/25/2024 Orders Only GENERIC EXTERNAL DATA DEPARTMENT Provider, Generic External Data 06/18/2024 Telephone [facility] [address] [place] [address] Ildefonso Darden ANP Prior Authorization 06/17/2024 11:00 AM EDT Office Visit [facility] [address] [place] [address] Ildefonso Darden ANP Diabetic 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 (CMS/HCC) (Primary Dx); Nasal congestion; Acute cough; Chronic obstructive pulmonary disease, unspecified COPD type (CMS/HCC); Screening examination for STI; Intertrigo; Acute non-recurrent sinusitis, unspecified location 06/17/2024 Travel from Last 3 Months Immunizations Immunization Administration Dates Next Due Influenza, IIV3, injectable 11/30/2010 Influenza, Unspecified 11/30/2010 Natasha SARS-CoV-2 Vaccination 06/17/2020 Pfizer Covid-19 Vaccine 12+ 05/08/2023 Pneumococcal Conjugate PCV 13 07/01/2021 Pneumococcal Conjugate PCV 20 05/08/2023 Pneumococcal Polysaccharide PPSV23 11/23/2007 RSV Bivalent 02/13/2024 TD (adult), 2 Lf tetanus tox oid, [...] Sign Reading Time Taken Comments Blood Pressure 132/72 07/15/2024 10:06 AM EDT Pulse 82 07/15/2024 10:06 AM EDT Temperature 36.3 ??C (97.3 ??F) [...] Description 09/17/2024 9:30 AM EDT Office Visit [facility] [address] [place] [address] Ildefonso Darden ANP [address] [place] [address] Health Maintenance Due Date Last Done Comments CT Colonography 1960 FIT DNA/Cologuard 1960 FIT 1960 FOBT 1960 Sigmoidoscopy 1960 Influenza Vaccine (#1) 2023 11/30/2010, 2010 Diabetes: Hemoglobin A1C 09/17/2024 025, 02/16/2024, 11/16/2023, [...] Completed 02/13/2024, 08/2023, 05/11/2021, Additional history exists RSV Patients and Patients Aged 60 years or older Completed 02/13/2024 Hepatitis C Screening Completed 06/17/2024, 022 Zoster Vaccines Completed 07/15/2024, 11/16/2023 HIB Vaccines Aged Out No longer eligi [...] 132/72(2024 10:06 AM EDT) No Mathew Gatica, PharmDaniela Hemoglobin A1c < 7 Result Component 8(06/17/2024 10:56 AM EDT) No Mathew Gatica, PharmDaniela Note: Goal of 8% may be reasonable [...] 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 ([facility]/HCC) POCT GLUCOSE Routine 06/17/2024 10:56 AM EDT Diabetic 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 ([facility]/HCC) CHLAMYDIA/N. GONORRHOEAE RNA, TMA, UROGENITAL Routine 06/17/2024 [...] EDT Narrative 06/25/2024 3:05 PM EDT ? [facility] ?[address] ?[place] [address] ? CT Scan Report ? Signed ? Patient: Jerrod Corley,Zee ?MR#: [id number] ?? [id number] ? : 1960 ?Acct:[id number] ? Age/Sex: 63 / F ?ADM Date: 03/25/25 ? Loc: HO.ED ? Attending Dr: ? Ordering Physician: Natalie Torres NP ?? Date of Service: 06/25/24 ?? Procedure(s): CT abdomen pelvis w IV con ?? Accession Number(s): [id number] ? cc: ILDEFONSO DARDEN NP; Natalie Torres NP ? Report Number: ?? [id number]: Total DLP = ??654.00 mGy-cm ?? EXAMINATION: [...] DD/ 1434 ? TD/TT: 06/25/24 1447 ? Gas Processing Plant Operator: ? Procedure Note Rosetta, Edyta - 06/25/[address] [address] [address] Scan Report Signed Patient: Zee Lara#: [id number] : 9Acct:[id number] Age/Sex: 63 / FADM Date: 06/25/24 Loc: HO.ED Attending Dr: Ordering Physician: Natalie Torres NP Date of Service: 06/25/24 Procedure(s): CT abdomen pelvis w IV con Accession Number(s): [id number] cc: ILDEFONSO DARDEN BOILER OR ENGINE OPERATOR; Natalie Torres NP Report Number: [id number]: Total DLP = 654.00 mGy-cm EXAMINATION: CT [...] Malachi Castillo MD 06/25/2024 03:02 PM EDT RP Dictated By: Malachi Castillo MD Signed By: <Electronically signed by Malachi Castillo MD in OV> 06/25/24 1502 DD/ 1434 TD/TT: 06/25/24 1447 Gas Processing Plant Operator: [facility] External Provider IMG CT PROCEDURES Edited Result - Final * High Sensitivity Troponin I (06/25/2024 10:57 AM EDT) TROPONIN I HIGH SENSITIVITY <2.7 <3.5 - 17.0 ng/L [facility] Comment:The Pineda high sens itivity Troponin-I results should beused in conjunction with other diagnostic information suchas ECG, clinical observations and information, and patientsymptoms to aid in the diagnosis of NE. 06/25/2024 10:5 7 AM EDT 06/25/2024 11:12 AM EDT Generic External Data Provider LAB BLOOD ORDERAB LES Final Result [facility] [address] [place] [address] [phone] * US Abdomen Limited (06/25/2024 10:46 AM EDT) Anatomical Region Laterality Modality Abdomen Ultrasound 06/25/2024 10:4 6 AM EDT Narrative 06/25/2024 11:11 AM EDT ? [facility] ?[address] ?[place] [address] ? Ultrasound Report ? Signed ? Patient: Jerrod Corley,Zee ?MR#: [id number] ?? [id number] ? : 1960 ?Acct:[id number] ? Age/Sex: 63 / F ?ADM Date: 03/25/25 ? Loc: HO.ED ? Attending Dr: ? Ordering Physician: Natalie Torres NP ?? Date of Service: 06/25/24 ?? Procedure(s): US abdomen limited ?? Accession Number(s): [id number] ? cc: ILDEFONSO DARDEN NP; Natalie Torres NP ? EXAMINATION: ?? US ABDOMEN LIMITED ? [...] Flores MD ??06/25/2024 11:09 AM ?? EDT ? Dictated By: ?Lars Cheema MD ? Signed By: ?<Electronically signed by Lars Elder MD in OV> ? 06/25/24 1109 ? DD/ 1046 ? TD/TT: 06/25/24 1051 ? Gas Processing Plant Operator: ? Procedure Note Rosetta, Edyta - 06/25/2024 [facility] [address] [place] [address] Ultrasound Report Signed Patient: Jerrod CorleyZee#: [id number] : 9Acct:[id number] Age/Sex: 63 / FADM Date: 06/25/24 Loc: HO.ED Attending Dr: Ordering Physician: Natalie Torres NP Date of Service: 06/25/24 Procedure(s): US abdomen limited Accession Number(s): [id number] cc: ILDEFONSO DARDEN BOILER OR ENGINE OPERATOR; Natalie Torres NP EXAMINATION: US ABDOMEN LIMITED [...] Lars Flores MD 06/25/2024 11:09 AM EDT Dictated By: Lars Cheema MD Signed By: <Electronically signed by Lars Elder MDin OV> 06/25/24 1109 DD/ 1046 TD/TT: 06/25/24 1051 Gas Processing Plant Operator: [facility] External Provider IMG US PROCEDURES Edited Result - Final * (ABNORMAL) Urinalysis, Complete, with Reflex to Culture (06/25/2024 10:03 AM EDT) Color Urine Yellow [facility] Appearance Urine Clear [facility] PH 5.5 5.0 - 9.0 [facility] Glucose Urine UA Negative Negative mg/dL [facility] Urine Blood Negative Negative [facility] Specific [place]kinson - Urine 1.020 1.005 - 1.025 [facility] Urine Protein 30 (1+)(A) Neg-Trace mg/dL [facility] Urine Ketones Negative Negative mg/dL [facility] Nitrite Urine Negative Negative [facility] Leukocyte Esterase Urine Negative Negative [facility] RBC Urine 0-2 0 - 2 /HPF [facility] Urine WBC 0-5 0 - 5 /HPF [facility] Urine Squamous Epithelial Cell 0-2 0 - 2 /HPF [facility] Urine Bacteria None Seen None Seen [facility] Hyaline Casts, Urine 0-2 0 - 2 /LPF [facility] 06/25/2024 10:0 3 AM EDT 06/25/2024 10:20 AM EDT Narrative [facility] - 06/25/2024 10:44 AM EDT [id number], [employer] us Generic External Data Provider LAB URINE ORDERAB LES Final Result [facility] [address] [place] [phone] * (ABNORMAL) CBC auto differential (06/25/2024 7:52 AM EDT) White Blood Count 4.1(L) 4.8 - 10.8 X10*3/uL [facility] Red Blood Count 3.55(L) 4.20 - 5.50 X10*6/uL [facility] Hemoglobin 12.3 12.0 - 16.0 g/dl [facility] Hematocrit 35.9(L) 37.0 - 47.0 % [facility] Mean Corpuscular Volume 101.1(H) 80.0 - 98.0 fL [facility] Mean Corpuscular Hemoglobin 34.6(H) 27.0 - 33.0 pg [facility] Mean Corpuscular HGB Conc 34.3 31.0 - 35.0 g/dl [facility] Red Cell Distribution Width 12.6 11.0 - 16.0 % [facility] Platelet Count 176 160 - 400 X10*3/uL [facility] Mean Platelet Volume 8.1(L) 9.4 - 12.3 fL [facility] Neutrophils Percent Auto 67.0 45 - 73 % [facility] Imm Gran Pct Auto 0.2 0.0 - 0.4 % [facility] Lymphocytes Percent Auto 23.0 20 - 40 % [facility] Monocytes Percent Auto 6.4 2 - 11 % [facility] Eosinophils Percent Auto 2.9 0 - 4 % [facility] Basophils Percent Auto 0.5 0 - 2 % [facility] NRBC Pct Auto 0.0 0.0 - 0.2 /100WBC [facility] Neutrophils Absolute Auto 2.7 2.0 - 8.3 x10*3/uL [facility] Imm Gran Abs Auto 0.01 0.00 - 0.03 X10*3/uL [facility] Lymphocytes Absolute Auto 0.9(L) 1.2 - 4.9 X10*3/uL [facility] Monocytes Absolute Auto 0.3 0.1 - 1.2 X10*3/uL [facility] Eosinophils Absolute Auto 0.1 0.0 - 0.4 X10*3/uL [facility] Basophils Absolute Auto 0.0 0.0 - 0.2 X10*3/uL [facility] NRBC Abs Auto 0.000 0.0 - 0.012 X10*3/uL [facility] 06/25/2024 7:52 AM EDT 06/25/2024 7:56 AM EDT us Generic External Data Provider LAB BLOOD ORDERAB LES Final Result [facility] [address] [place], [place] [phone] * (ABNORMAL) Comprehensive Metabolic Panel (06/25/2024 7:52 AM EDT) Sodium 141 135 - 145 mmol/L [facility] Potassium 3.8 3.3 - 5.1 mmol/L [facility] Chloride 111(H) 96 - 108 mmol/L [facility] Carbon Dioxide 24 22 - 29 mmol/L [facility] Anion Gap 10(L) 12 - 20 [facility] Urea Nitrogen (BUN) 18(H) 9 - 16 mg/dL [facility] Creatinine, Serum 0.90 0.5 - 1.4 mg/dL [facility] Creatinine Clr Calc Pharmacy -16.7 [facility] Comment:Provided height and weight: 7.62 cm,85.7 kg.eGFR (calculated from the MDRD study equation) and eCrCl(calculated from the Cockcroft-Gault equation) are based ondifferent parameters and may not yield comparable results.If eCrCl result is absurd, please check patient'sheight/weight. Estimated Glomerular Filt Rate >60 [facility] Comment:Chronic Kidney Disea se: Estimated GFR < 60 mL/min/1.12o2Jjrkxx Kidney Disease: Estimated GFR < 15 mL/min/1.73m2 Glucose 158(H) 60 - 115 mg/dL [facility] Calcium 8.7 8.4 - 10.2 mg/dL [facility] Bilirubin, Total 0.3 0.0 - 1.0 mg/dL [facility] Aspartate Amino Transferase 22 5 - 31 U/L [facility] Alanine Aminotransferase 15 0 - 31 U/L [facility] Total Protein 7.1 6.5 - 8.0 g/dL [facility] Albumin Level 3.9 3.5 - 5.0 g/dL [facility] Alkaline Phosphatase 63 39 - 117 U/L [facility] 06/25/2024 7:52 AM EDT 06/25/2024 7:56 AM EDT us Generic External Data Provider LAB BLOOD ORDERAB LES Final Result [facility] [address] [place] [address] [phone] * Hepatitis C Antibody with Reflex to HCV, RNA, Quantitative, Real-Time PCR (06/17/2024 12:04 PM EDT) Hepatitis C Antibody Nonreactive Nonreactive [facility] Comment:Antibodies to HCV no t detected; does not exclude early acuteHCV infection. Blood Venous blood specimen / Unknown 06/17/2024 12:04 PM EDT 06/17/2024 1:14 PM EDT Ildefonso Darden [facility] LAB BLOOD ORDERABLES Final Resul t Performing Organization Address [facility] de Phone Number [facility] [address] [place] [phone] * RPR (Monitor) with Reflex to??Titer (06/17/2024 12:04 PM EDT) RPR (Monitor) w/Refl Titer NON-REACTI VE NON-REACT NARCISA [facility] Comment:THIS TEST WAS PERFOR MED AT:[facility] [address] [phone] BRAND MD Rapid Plasma Reagin Ab Titer TNP [facility] Blood Venous blood specimen / Unknown 06/17/2024 12:04 PM EDT 06/17/2024 1:14 PM EDT Ildefonso Darden [facility] LAB BLOOD ORDERABLES Final Resul t Performing Organization Address [facility] Co de Phone Number [facility] [address] [place] [phone] * HIV-1/2 Antigen and Antibodies, Fourth Generation, with Reflexes (06/17/2024 12:04 PM EDT) HIV AB/AG Nonreactive Nonreactive [facility] Comment:HIV-1 p24 Ag and/or HIV-1/HIV-2 Ab not detected.A test result that is nonreactive does not exclude thepossibility of exposure to or infection with HIV-1 and/orHIV-2. Nonreactive results in this assay for individualswith prior exposure to HIV-1 and/or HIV-2 may be due toantigen and antibody levels that are below the limit ofdetection of this assay.The [email or web address] HIV Ag/Ab Combo assay result andsupplemental assay results should be interpreted inconjunction with the patient's clinical presentation,history and other laboratory results. If the results areinconsistent with clinical evidence, additional testing issuggested to confirm the result. Blood Venous blood specimen / Unknown 06/17/2024 12:04 PM EDT 06/17/2024 1:14 PM EDT us Ildefonso Darden [facility] LAB BLOOD ORDERABLES Final Resul t [facility] [address] [place] [phone] * (ABNORMAL) POCT HGB A1C (06/17/2024 10:56 AM EDT) Hemoglobin A1C 8.0(A) 4.0 - 6.0 % QC Media Lot # [id number] Lot# Expiration Date [id number] Blood 06/17/2024 10:5 6 AM EDT us Ildefonso Darden [facility] POINT OF CARE TEST ENTER/EDIT OR DERABLES Final Result * (ABNORMAL) POCT Glucose (06/17/2024 10:56 AM EDT) Glucose Blood, POC 234(A) 60 - 200 mg/dL QC Media Lot # [id number] Lot# Expiration Date [id number] Blood Capillary blood specimen / Unknown 06/17/2024 10:56 AM EDT us Ildefonso Darden ANP POINT OF CARE TEST ENTER/EDIT OR DERABLES Final Result * Bacterial Vaginosis Panel (06/17/2024 12:00 AM EDT) TRICHOMONAS VAGINALIS DETECTION BY PCR NOT DETECTED Not Detect [facility] BACTERIAL VAGINOSIS DETECTION BY PCR NEGATIVE Negative [facility] Comment:The BV organism targ ets of [...] DETECTION BY PCR NOT DETECTED Not Detect [facility] Yeny glab krusei PCR NOT DETECTED Not Detect [facility] Swab Vaginal structure / Unknown 06/17/2024 06/17/2024 [facility] LAB MICROBIOLOGY - GENERAL ORDER JOHANNA Final Result [facility] [address] [place] [phone] * Chlamydia/N. Gonorrhoeae RNA, TMA, Urogenitial (06/17/2024 12:00 AM EDT) CT PCR NOT DETECTED Not Detect. [facility] Comment:A not detected test result does [...] psychologicalconsequences. NG PCR NOT DETECTED Not Detect. [facility] Comment:A not detected test result does [...] psychologicalconsequences. Swab (Vaginal Swab) 06/17/2024 06/17/2024 Narrative [facility] - 06/18/2024 3:07 AM EDT Vaginal Ildefonso [facility] LAB MICROBIOLOGY - GENERAL ORDER JOHANNA Final Result [facility] [address] [place] [phone] * BI Mammogram Screening Tomosynthesis Bilateral (04/15/2024 9:40 AM EST) Anatomical Region Laterality Modality Breast Bilateral Mammography 04/15/2024 9:4 0 AM EST Narrative 04/23/2024 12:46 PM EST ? [facility] ? [address] [facility] ?[place] [address] ? Mammography Report ? Signed ? Patient: Jerrod Corley,Zee ?MR#: [id number] ?? [id number] ? : 1960 ?Acct:[id number] ? Age/Sex: 63 / F ?ADM Date: 01/13/25 ? Loc: HO.MAMMO ? Attending Dr: Ildefonso Darden BOILER OR ENGINE OPERATOR ? Ordering Physician: ILDEFONSO DARDEN NP ?Results: 1Negative ? Date of Service: 04/15/24 ?Follow Up: 1 Year From Orig ?? inal Mammogram ? Procedure(s): MM tomosynthesis screening BI ?? Accession Number(s): [id number] ? cc: ILDEFONSO DARDEN NP ? EXAMINATION: ?? MM SCREENING DIGITAL BREAST [...] ??Jessica Lees DO ??04/23/2024 12:43 PM EST ?? RP ? Dictated By: ?Jessica Lees DO ? Signed By: ?<Electronically signed by Jessica Lees, DO in OV> ? 04/23/24 1243 ? DD/ 0940 ? TD/TT: 04/15/2455 ? Gas Processing Plant Operator: ? Procedure Note Donotcodyter, [facility] [address] [place] [address] Mammography Report Signed Patient: Frederic Lara#: [id number] : 9Acct:[id number] Age/Sex: 63 / FADM Date: 04/15/24 Loc: HO.MAMMO Attending Dr: Ildefonso Darden BOILER OR ENGINE OPERATOR Ordering Physician: ILDEFONSO DARDEN NPResults: 1Negative Date of Service: 04/15/24Follow Up: 1 Year From Orig inal Mammogram Procedure(s): MM tomosynthesis screening BI Accession Number(s): [id number] cc: ILDEFONSO DARDEN NP EXAMINATION: MM SCREENING [...] by: Jessica Lees DO 04/23/2024 12:43 PM EST Dictated By: Jessica Lees DO Signed By: <Electronically signed by Jessica Lees DO in OV> 04/23/24 1243 DD/ 9 TD/TT: 04/15/24954 Gas Processing Plant Operator: Ildefonso Darden ANP IMG BI PROCEDURES Edited Result - Final * Lipid Panel, Standard (11/14/2023 8:19 AM EDT) Triglycerides 143 <150 mg/dL [facility] Comment:Desirable Triglyceri de: less than 150 mg/dLBorderline High Triglyceride 150-199 mg/dLHigh Triglyceride: 200-499 mg/dLVery High Triglyceride: greater than or equal to 5OO mg/dL Cholesterol 132 <200 mg/dL [facility] Comment:Desirable Cholestero l: less than 200 mg/dLBorderline High Cholesterol: 200-239 mg/dLHigh Cholesterol: greater than 239 mg/dL LDL Cholesterol Calculated 52 <100 mg/dL [facility] Comment:Desirable LDL: less than 100 mg/dLNear Optimal/Above Optimal LDL: 110- 129 mg/dLBorderline High LDL: 130-159 mg/dLHigh LDL: 160-189 mg/dLVery High LDL: greater than or equal to 190 mg/dL HDL Cholesterol 52 >40 mg/dL [facility] Comment:Desirable HDL: great er than 40 mg/dL Note: This HDL assay may give artificially low results in patients with liver disease. 11/14/2023 8:19 AM EDT 11/14/2023 11:26 AM EDT Ildefonso Darden ANP LAB BLOOD ORDERABLES Final Resul t [facility] [address] [place], [place] [phone] * (ABNORMAL) Hm Colonoscopy (11/09/2020) Colonoscopy Abnormal(A ) Normal Historical Provider HEALTH MAINTENANCE Final Result from Last 3 Months or Most Recently Relevant to Health Maintenance Insurance [facility] [employer] (HMO D-SNP) [place] [id number] Care Teams [employer] Director Relationship Specialty Start Date End Date Ildefonso Darden ANP [address] [place] [address] PCP - General Family Medicine 02/06/20 Mathew Gatica, NancyD [address] [place] [address] Pharmacist Internal Medicine 09/22/23
== END 2024-08-14 12:12 | disposition home or self-care (01) ==
LOC: HO.HGI 11:07
PROVIDERS: PCP Nurse Practitioner Primary Care; Visit Provider Nurse Practitioner
DX: K21.9 Gastro-esophageal reflux disease without esophagitis (principal); K59.00 Constipation, unspecified; D12.6 Benign neoplasm of colon, unspecified; R10.9 Unspecified abdominal pain
CPT/HCPCS: 99213

== ENCOUNTER → 2024-08-14 11:06 | Outpatient (BNVA) | payer OTHER, SELFPAY | PROVIDERS: PCP Nurse Practitioner Primary Care; Visit Provider Nurse Practitioner | DX: K21.9 Gastro-esophageal reflux disease without esophagitis (principal); K58.1 Irritable bowel syndrome with constipation; D12.6 Benign neoplasm of colon, unspecified; R10.9 Unspecified abdominal pain; C21.1 Malignant neoplasm of anal canal; Z92.3 Personal history of irradiation | CPT/HCPCS: 99212 ==

== ENCOUNTER 2024-10-14 09:25 | Outpatient (REF) | payer OTHER, SELFPAY ==
--- NOTE | ~2024-10-14 | CT_ITS ---
EXAMINATION: CT LOW-DOSE SCREENING CHEST WITHOUT CONTRAST CLINICAL INFORMATION: 64 year female, former smoker, quit in 2021; 50 pack-year history. Lung cancer screening. COMPARISON: No prior low dose screening. 09/24/2023, 03/03/2023 CT chest. TECHNIQUE: Multidetector volumetric CT imaging of the chest is performed on a Siemens SOMATOM Definition scanner without contrast using low dose technique. Additional 2D coronal and sagittal reformatted images and axial 3D maximum intensity projection (MIP) images are generated on the CT workstation. This CT examination was performed using dose optimization techniques as appropriate, variously including the following: *Automated exposure control *Adjustment of mA and/or kV according to patient size (this includes techniques or standardized protocols for targeted exams where dose is matched to indication/reason for exam; i.e. extremities or head) *Use of iterative reconstruction technique FINDINGS: PULMONARY NODULES: There are a few scattered 2 mm pulmonary nodules in both lungs. These are unchanged. 3 mm nodule anterior left apex (series 5, image 23), unchanged. 3 mm nodule superior segment left lower lobe (series 5, image 77), unchanged. There is no new or enlarging pulmonary nodule. LUNGS: Mild centrilobular emphysema. Lungs otherwise clear bilaterally without abnormal opacities. No effusion or pneumothorax. Mild bronchiectasis of the small airways is present throughout both lungs. No bronchial wall thickening. MEDIASTINUM: Normal thyroid. No abnormal lymphadenopathy or mass within the mediastinum. Main pulmonary artery is normal. The aorta is moderately calcified although normal in caliber and course. No esophageal abnormality. Central airways are patent bilaterally. Heart size is normal. There is no pericardial effusion. CORONARY ARTERY CALCIFICATION: Mild three-vessel coronary calcification. CHEST WALL/AXILLA: No masses or abnormal lymph nodes present. UPPER ABDOMEN: There is been a cholecystectomy. There is mild diverticulosis of the imaged colon. OSSEOUS STRUCTURES: There is no suspicious lytic or blastic bone lesion. CT/CT lung screening IMPRESSION: 1. There are a few tiny scattered pulmonary nodules measuring up to 3 mm which are unchanged. There is no new or enlarging pulmonary nodule. 2. There is mild centrilobular emphysema. There is no active pulmonary disease. 3. There is mild small airway bronchiectasis without thickening. ASSESSMENT: 1. Lung-RADS Category 2: Benign appearance or behavior of nodules. 2. Lung-RADS Category S: None. RECOMMENDATION: Continued routine annual low-dose CT lung screening in 1 year is recommended. An order for CT CHEST LOW DOSE CANCER SCREENING ([id number]) can be placed. Electronically signed by: Imtiaz Wakefield MD 10/14/2024 12:36 PM EDT
--- OUTSIDE RECORDS SUMMARY | 2024-10-14 09:49 | XMS_ITS | Encounter Summary ---
Author Organization [employer] Address [address] [facility] 7t [place] [address] Care Team Providers Care Bi Solutions Architect Name Role Phone Areli Elam Primary Care Provider [phone] Mathew Gatica PharmD Unavailable [phone] Reason for Visit * Reason Onset Date Comments Call Back Request 03/07/2023 Encounter Details Date Type Department Care Team ([facility] st Contact Info) Description 03/07/2023 Telephone [facility] MED[facility]INE [address] [place], [place] [phone] Areli Elam ANP [address] [place], [place] [phone] Call Back Request Social History Tobacco Use [...] from pt returning call. Please contact at [phone] Panamanian * Telephone Encounter - JIN Alva - [...] Care Team (Late st Contact Info) Description 11/14/2024 11:30 AM EDT Medication Management [facility] MED[facility]INE [address] [place] [phone] Mathew Gatica, Peter [address] [place] [address] 12/13/2024 11:00 AM EDT Office Visit [facility] [address] [place] [phone] Areli Elam ANP [address] [place] [address] documented as of this encounter Visit Diagnoses Not on filedocumented in this encounter Additional Health Concerns Assessment Noted Time PHQ-9 Depression Total Score: 0 11/01/19 23 9:18 AM EDT documented as of this encounter Care Teams Bi Solutions Architect Relationship Specialty Start Date End Date Areli Elam ANP [address] [place] [phone] PCP - General Family Medicine 02/06/20 Mathew Gatica, Peter [address] [place] [address] [phone] Pharmacist Internal Medicine 09/22/23 documented as of this encounter
--- OUTSIDE RECORDS SUMMARY | 2024-10-14 09:49 | XMS_ITS | Clinical Summary ---
Author Organization [facility] Facility Address [address] [place] [address] Care Team Providers Care Desktop Publishing Specialist Name Role Phone Areli Elam NP Primary Care Provider [phone] Allergies Active Allergy Reactions Criticality Noted Date [...] disorder 09/06/2011 Chronic obstructive pulmonary disease 09/06/2011 Encounters Date Type Department Care Team Description 09/28/2024 Orders Only [facility] [address] [place] [address] Ramo Beavers MD Essential hypertension from Last 3 Months Immunizations Immunization Administration [...] Visit [facility] [address] [place] [address] [place] [address] Ramo Beavers MD [address] [facility] [address] [place] [address] Health Maintenance Due Date Last Done Comments Breast Cancer Screening 1960 Colorectal Cancer Screening: Annual FOBT 06/28/2007 Colorectal Cancer Screening: Colonoscopy 06/28/2007 Colorectal Cancer Screening: Sigmoidoscopy 06/28/2007 Diabetes: Ophthalmology Exam 05/04/2020 Diabetes: Pedal Pulse Checked 05/04/2020 Diabetes: Sensory Foot Exam 05/04/2020 Diabetes: Visual Foot Exam 05/04/2020 Diabetes: Hemoglobin A1C 09/17/2024 025, 11/16/2023, 04/20/2022 Pneumococcal Vaccine: 50+ Years Completed 05/08/2023, 07/01/2021, 11/23/2007 Pneumococcal Vaccine: Peds ( 0 to 5 Years) and At-Risk Patients (6 to 49 Years) Discontinued 05/08/2023, 07/01/2021, 11/23/2007 Hepatitis B Vaccine Aged Out No longe r eligible based on patient's age to complete this topic Insurance [facility] ([id number]) [place] [id number] [facility] ([id number]) [place] [phone] Care Teams Desktop Publishing Specialist Relationship Specialty Start Date End Date Areli Elam NP PCP - General Nurse Practitioner 11/02/20
== END 2024-10-14 09:26 | disposition home or self-care (01) ==
LOC: HO.CT 09:25
PROVIDERS: PCP Nurse Practitioner Primary Care; Visit Provider Physician Assistant Medical
DX: Z12.2 Encounter for screening for malignant neoplasm of respiratory organs (principal); Z87.891 Personal history of nicotine dependence
CPT/HCPCS: 71271

== ENCOUNTER → 2024-10-14 09:27 | Outpatient (BNV) | payer OTHER, SELFPAY | PROVIDERS: PCP Nurse Practitioner Primary Care; Visit Provider Radiology Diagnostic Radiology | DX: Z87.891 Personal history of nicotine dependence (principal) | CPT/HCPCS: 71271 ==

== ENCOUNTER 2024-10-18 08:19 | Outpatient (REF) | payer OTHER, SELFPAY ==
--- OUTSIDE RECORDS SUMMARY | 2024-10-18 08:22 | XMS_ITS | Clinical Summary ---
Author Organization [employer] [facility] Facility Address [address] [place] [address] Care Team Providers Care Telemarketing Agent Name Role Phone Areli Elam NP Primary Care Provider [phone] Allergies Active Allergy Reactions Criticality Noted Date [...] Only [facility] [address] [place] [address] Ramo Beavers MD Essential hypertension from Last [...] Visit [facility] [address] [place] [address] [place] [address] Ramo Beavers MD [address] [facility] [address] [place] [address] Health Maintenance Due Date Last [...] patient's age to complete this topic Insurance [facility] ([id number]) [place] [id number] [facility] ([id number]) [place] [phone] Care Teams Telemarketing Agent Relationship Specialty Start Date End Date Areli Elam NP PCP - General Nurse Practitioner 11/02/20
--- OUTSIDE RECORDS SUMMARY | 2024-10-18 08:22 | XMS_ITS | Encounter Summary ---
Author Organization [employer] Address [address] [facility] 7[address] [place] [address] Care Team Providers Care Demolition Expert Name Role Phone Ildefonso Darden Primary Care Provider [phone] Mathew Gatica PharmD Unavailable [phone] Encounter Details Date Type Department Care Team (Late st Contact Info) Description 10/14/2024 Orders Only [facility] External Provider, [facility] Social History Tobacco Use Types Packs/Day Years [...] Description 11/14/2024 11:30 AM EDT Medication Management [facility] MED[facility] [address] [place] [phone] Mathew Gatica PharmD [address] [place] [phone] 12/13/2024 11:00 AM EDT Office Visit [facility] MED[facility] [address] [place] [phone] Ildefonso Darden, ANP [address] [place] [address] documented as of this encounter Goals Goal Patient Goal Type Associated Problems Recent Progress Patient-Stated? Author Blood Pressure < 140/90 Blood Pressure 140/58(2024 9:35 AM EDT) No Mathew Gatica PharmD Hemoglobin A1c < 7 Result Component 7.8( 9:40 AM EDT) No Mathew Gatica PharmD Note: Goal of 8% may be reasonable given patient's age, history of Cancer, HTN, CKD, CAD documented as of this encounter Procedures Procedure Name Priority Date/Time Associated Diagnosis Comments LDCT LUNG SCREENING Routine 10/14/2024 9 :36 AM EDT documented in this encounter Results * CT Lung Screening Low dose (10/14/2024 9:36 AM EDT) Anatomical Region Laterality Modality Lung Computed Tomogra phy 10/14/2024 9:36 AM EDT Narrative 10/14/2024 12:39 PM EDT [address] [address] [address] Scan Report Signed Patient: Zee Lara MR#: [id number] : 1960 Acct:[id number] Age/Sex: 64 / F ADM Date: 10/14/24 Loc: HO.CT Attending Dr: Linda Rico PA-C Ordering Physician: Linda Rico PA-C Date of Service: 10/14/24 Procedure(s): CT lung screening Accession Number(s): [id number] cc: Linda Rico PA-C; ILDEFONSO DARDEN NP Report Number: [id number]: Total DLP = 55.00 mGy-cm EXAMINATION: CT LOW-DOSE SCREENING CHEST WITHOUT CONTRAST CLINICAL INFORMATION: 64 year female, former smoker, quit in 2021; 50 pack-year history. Lung cancer screening. COMPARISON: No prior low dose screening. 09/24/2023, 03/03/2023 CT chest. TECHNIQUE: Multidetector volumetric CT imaging of the chest is performed on a Siemens SOMATOM Definition scanner without contrast using low dose technique. Additional 2D coronal and sagittal reformatted images and axial 3D maximum intensity projection (MIP) images are generated on the CT workstation. This CT examination was performed using dose optimization techniques as appropriate, variously including the following: *Automated exposure control *Adjustment of mA and/or kV according to patient size (this includes techniques or standardized protocols for targeted exams where dose is matched to indication/reason for exam; i.e. extremities or head) *Use of iterative reconstruction technique FINDINGS: PULMONARY NODULES: There are a few scattered 2 mm pulmonary nodules in both lungs. These are unchanged. 3 mm nodule anterior left apex (series 5, image 23), unchanged. 3 mm nodule superior segment left lower lobe (series 5, image 77), unchanged. There is no new or enlarging pulmonary nodule. LUNGS: Mild centrilobular emphysema. Lungs otherwise clear bilaterally without abnormal opacities. No effusion or pneumothorax. Mild bronchiectasis of the small airways is present throughout both lungs. No bronchial wall thickening. MEDIASTINUM: Normal thyroid. No abnormal lymphadenopathy or mass within the mediastinum. Main pulmonary artery is normal. The aorta is moderately calcified although normal in caliber and course. No esophageal abnormality. Central airways are patent bilaterally. Heart size is normal. There is no pericardial effusion. CORONARY ARTERY CALCIFICATION: Mild three-vessel coronary calcification. CHEST WALL/AXILLA: No masses or abnormal lymph nodes present. UPPER ABDOMEN: There is been a cholecystectomy. There is mild diverticulosis of the imaged colon. OSSEOUS STRUCTURES: There is no suspicious lytic or blastic bone lesion. CT/CT lung screening IMPRESSION: 1. There are a few tiny scattered pulmonary nodules measuring up to 3 mm which are unchanged. There is no new or enlarging pulmonary nodule. 2. There is mild centrilobular emphysema. There is no active pulmonary disease. 3. There is mild small airway bronchiectasis without thickening. ASSESSMENT: 1. Lung-RADS Category 2: Benign appearance or behavior of nodules. 2. Lung-RADS Category S: None. RECOMMENDATION: Continued routine annual low-dose CT lung screening in 1 year is recommended. An order for CT CHEST LOW DOSE CANCER SCREENING ([id number]) can be placed. Electronically signed by: Imtiaz Wakefield MD 10/14/2024 12:36 PM EDT RP Dictated By: Imtiaz Wakefield MD Signed By: <Electronically signed by Imtiaz Wakefield MD in OV> 10/14/24 1236 DD/ 0936 TD/TT: 10/14/24 0947 [employer]: Procedure Note Donotuseinterpreter, Image - 10/14/[address] [address] [address] Scan Report Signed Patient: Frederic Lara#: [id number] : 9Acct:[id number] Age/Sex: 64 / FADM Date: 10/14/24 Loc: HO.CT Attending Dr: Linda Rico PA-C Ordering Physician: Linda Rico PA-C Date of Service: 10/14/24 Procedure(s): CT lung screening Accession Number(s): [id number] cc: Linda Rico PA-C; ILDEFONSO DARDEN NP Report Number: [id number]: Total DLP = 55.00 mGy-cm EXAMINATION: CT LOW-DOSE SCREENING CHEST WITHOUT CONTRAST CLINICAL INFORMATION: 64 year female, former smoker, quit in 2021; 50 pack-year history. Lung cancer screening. COMPARISON: No prior low dose screening. 09/24/2023, 03/03/2023 CT chest. TECHNIQUE: Multidetector volumetric CT imaging of the chest is performed on a Siemens SOMATOM Definition scanner without contrast using low dose technique. Additional 2D coronal and sagittal reformatted images and axial 3D maximum intensity projection (MIP) images are generated on the CT workstation. This CT examination was performed using dose optimization techniques as appropriate, variously including the following: *Automated exposure control *Adjustment of mA and/or kV according to patient size (this includes techniques or standardized protocols for targeted exams where dose is matched to indication/reason for exam; i.e. extremities or head) *Use of iterative reconstruction technique FINDINGS: PULMONARY NODULES: There are a few scattered 2 mm pulmonary nodules in both lungs. These are unchanged. 3 mm nodule anterior left apex (series 5, image 23), unchanged. 3 mm nodule superior segment left lower lobe (series 5, image 77), unchanged. There is no new or enlarging pulmonary nodule. LUNGS: Mild centrilobular emphysema. Lungs otherwise clear bilaterally without abnormal opacities. No effusion or pneumothorax. Mild bronchiectasis of the small airways is present throughout both lungs. No bronchial wall thickening. MEDIASTINUM: Normal thyroid. No abnormal lymphadenopathy or mass within the mediastinum. Main pulmonary artery is normal. The aorta is moderately calcified although normal in caliber and course. No esophageal abnormality. Central airways are patent bilaterally. Heart size is normal. There is no pericardial effusion. CORONARY ARTERY CALCIFICATION: Mild three-vessel coronary calcification. CHEST WALL/AXILLA: No masses or abnormal lymph nodes present. UPPER ABDOMEN: There is been a cholecystectomy. There is mild diverticulosis of the imaged colon. OSSEOUS STRUCTURES: There is no suspicious lytic or blastic bone lesion. CT/CT lung screening IMPRESSION: 1. There are a few tiny scattered pulmonary nodules measuring up to 3 mm which are unchanged. There is no new or enlarging pulmonary nodule. 2. There is mild centrilobular emphysema. There is no active pulmonary disease. 3. There is mild small airway bronchiectasis without thickening. ASSESSMENT: 1. Lung-RADS Category 2: Benign appearance or behavior of nodules. 2. Lung-RADS Category S: None. RECOMMENDATION: Continued routine annual low-dose CT lung screening in 1 year is recommended. An order for CT CHEST LOW DOSE CANCER SCREENING ([id number]) can be placed. Electronically signed by: Imtiaz Wakefield MD 10/14/2024 12:36 PM EDT Dictated By: Imtiaz Wakefield MD Signed By: <Electronically signed by Imtiaz Wakefield MD in OV> 10/14/24 1236 DD/ 0936 TD/TT: 10/14/24 0947 [employer]: [facility] External Provider IMG CT PROCEDURES Final Result documented in this encounter Visit Diagnoses Not on filedocumented in this encounter Additional Health Concerns Assessment Noted Time PHQ-9 Depression Total Score: 0 11/16/19 24 9:38 AM EDT documented as of this encounter Care Teams Demolition Expert Relationship Specialty Start Date End Date Ildefonso Darden ANP [address] [place] [address] PCP - General Family Medicine 02/06/20 Mathew Gatica PharmD [address] [place] [address] Pharmacist Internal Medicine 09/22/23 documented as of this encounter
[2024-10-18 12:03] LABS: Cholesterol 119 mg/dL (<200); HDL Cholesterol 53 mg/dL (>40); Triglycerides 127 mg/dL (<150)
[2024-10-18 12:06] LABS: Microalbum/Creatinine Ratio Ur 143.1 ug/mg cr (<30)
[2024-10-18 12:32] LABS: Vitamin B12 470 pg/mL (200-900)
== END 2024-10-18 08:20 | disposition home or self-care (01) ==
LOC: HO.HHCL 08:19
PROVIDERS: PCP Nurse Practitioner Primary Care; Visit Provider Nurse Practitioner Primary Care
DX: E11.9 Type 2 diabetes mellitus without complications (principal); Z79.4 Long term (current) use of insulin
CPT/HCPCS: 36415; 80061; 82043; 82570; 82607

== ENCOUNTER 2025-02-11 09:28 | Outpatient (AMB) | payer OTHER, SELFPAY ==
--- NOTE | 2025-02-11 09:37 | A.OFFVIS_ITS ---
Vital Signs 02/11/25 09:44 Height 5 ft 3 in Weight 188 lb BMI 33.3 BP 136/74 Blood Pressure Location Rt brachial Position Sitting Pulse 72 Pulse Source Pulse Oximeter Pulse Oximetry (%) 94 Oxygen Delivery Method Room Air Intake Visit Reasons: 6 month follow up Intake Note: Est pt for mgmt of [facility]. CC: Pt denies any new GI concerns or sx at this time and confirms that her c urrent Rx are working as intended. Liner Worker Required: No Accompanied by: Self / Same As Patient Allergies ibuprofen (IBUPROFEN) Allergy (Severe, Verified 02/11/25 09:38) SICK TO MY STOMACH ciprofloxacin (From CIPRO) Allergy (Intermediate, Verified 02/11/25 09:38) SICK doxycycline Allergy (Intermediate, Verified 02/11/25 09:38) Dizziness levofloxacin (From LEVAQUIN) Allergy (Intermediate, Verified 02/11/25 09:38) SICK , nausea, dizziness x days flu vaccine Allergy (Intermediate, Uncoded 02/11/25 09:38) Swelling HPI HPI 6 month follow up: Details: Assessment & Plan (1) GERD (gastroesophageal reflux disease): Code(s): K21.9 - Gastro-esophageal reflux disease without esophagitis Category: Medical Qualifiers: Esophagitis presence: with esophagitis (2) Constipation: Code(s): K59.00 - Constipation, unspecified Category: Medical (3) Tubular adenoma of colon: Comment: 2022= 3 polyps and a rectal carcinoma, 2020= 2 TA is Code(s): D12.6 - Benign neoplasm of colon, unspecified Category: Medical (4) Abdominal cramping: Code(s): R10.9 - Unspecified abdominal pain Category: Medical Plan The famotidine in the dicyclomine are controlling her GERD in her IBS well. She is feeling better since completing her radiation therapy for rectal cancer. She sees oncology again next month and then at longer intervals. ROV 6 mos. Medications: Refilled sennosides-docusate sodium 8.6-50 mg (Senna with Docusate Sodium) 1 tab-cap PO BEDTIME 14 tabs 0RF famotidine 20 mg PO BID 180 tabs 2RF K21.9 - Gastro-esophageal reflux disease without esophagitis dicyclomine 10 mg PO QID 360 caps 1RF R10.9 - Unspecified abdominal pain Discontinued polyethylene glycol 3350 (Miralax) Discontinued Reason: Patient Completed Course 17 grams PO DAILY 119 grams 0RF [facility] Medical History CKD (chronic kidney disease) stage 3, GFR 30-59 ml/min Adhesive capsulitis of right shoulder Acute rhinosinusitis Smoking greater than 30 pack years Anal squamous cell carcinoma Chest discomfort Shoulder pain Diabetes Pneumonia Pneumonia Colon cancer screening Personal history of nicotine dependence Restrictive lung disease Dyspnea on exertion Babesiasis Paroxysmal atrial fibrillation CAD (coronary artery disease) Asthma Bronchitis Obesity (BMI 30-39.9) Vitamin D deficiency Osteopenia Dyslipidemia Hypertension Diabetic 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 GERD (gastroesophageal reflux disease) Surgical History Hx of cataract surgery Hx of foot surgery Hx of colonoscopy History of esophagogastroduodenoscopy (EGD) Family History Father Heart failure Diabetes mellitus Mother Cholangiocarcinoma Diabetes mellitus Family history of hypertension Family history of heart attack Brother Lung cancer Family/Other Breast cancer Sister Social History Household Members: Family Housing: House Do you presently have visiting nurse or other home services: No Alcohol intake: current Alcohol intake frequency: a few times a month Alcohol type: beer Patient Tobacco Use Status: Former Tobacco user Tobacco use type: Cigarette Years Smoked: 45 e-Cigarette/Vaping Use: Never Used Advance Directives Date on File: 10/19/22 service: No Current occupational status: unemployed Review of Systems Const Denies fatigue, Denies fever(s), Denies night sweats, Denies poor appetite and Denies weight loss ENT Reports Normal hearing present, Denies dental pain, Denies dysphagia, Denies hearing loss, Denies mouth pain, Denies odynophagia, Denies throat swelling, Denies tongue swelling and Reports other (Dentition adequate) Card Reports no additional complaints Resp Reports no additional complaints GI Details: Denies abdominal pain, Denies melena, Denies bloating, Denies hematochezia, Denies constipation, Reports GI cramping, Denies dysphagia, Denies excessive flatus, Denies early satiety, Reports heartburn, Denies diarrhea, Denies nausea, Denies odynophagia, Denies vomiting and Denies hematemesis Skin/Breast Denies pruritus, Denies lesions, Denies rash and Denies jaundice Neuro Reports Normal hearing present and Denies Abnormal speech present Endo Denies fatigue Aller/Immun Denies throat swelling and Denies tongue swelling Physical Exam Vital Signs: Last Vital Signs Pulse 72 02/11/25 09:44 BP 136/74 02/11/25 09:44 Pulse Ox 94 02/11/25 09:44 Oxygen Delivery Method Room Air 02/11/25 09:44 BMI result Body Mass Index 33.3 Const General: cooperative, no acute distress, well developed and well groomed Nutritional Appearance: well nourished and obese Orientation/consciousness: oriented to person, oriented to place and oriented to time Limitations: No language barrier HEENT Head: Yes normocephalic and Yes atraumatic Eyes General: appearance normal, both eyes and all related structures Pupils: Equal, round and reactive pupils present Neck Neck: Yes normal visual inspection and Yes no lymphadenopathy Thyroid: Thyroid normal Resp Effort & Inspection: normal respiratory effort and able to speak in complete sentences Auscultation: clear to auscultation bilaterally Cardio Rate: regular rate Rhythm: regular rhythm Heart sounds: Normal, physiologic split S2 sound present Peripheral pulses: radial pulses present and posterior tibial pulses present GI Inspection: No distended, No Abdominal panniculus present and Yes obesity Palpation (GI): Soft to palpation, nontender, no guarding, not rigid and No hepatosplenomegaly present Percussion: Yes normal to percussion Auscultation: normal bowel sounds Rectal Exam - Female: deferred Skin General skin exam: no rashes or lesions noted, turgor normal, skin not dry, no jaundice, No spider nevi and no striae Rashes: no rashes Nails: normal Neuro General: oriented to person, oriented to place and oriented to time Cranial nerves: Yes Equal, round and reactive pupils present and Yes Normal hearing present Speech: No Abnormal speech present Extrem General: Yes normal to inspection, No clubbing, No cyanosis and No edema Psych Appearance: grossly normal and well kempt Mental Status: mental status grossly normal Speech and movement: Normal speech and movement present Affect: normal affect Attitude: cooperative Thought process: Normal thought process present and not confabulating Thought content: Normal thought content present Insight: Good insight present (Psych) Judgement: Good judgement present (Psych) Results Reviewed Results Reviewed: CT ABD AND PELVIS [facility] 01/07/25 FINDINGS: Decorator Hand view findings, lines and tubes: None. Trachea and airways: Patent without evidence of tracheal or endobronchial lesion. Lungs and pleura: Moderate emphysematous changes. No new or suspicious appearing pulmonary nodules to suggest a primary malignancy or metastatic disease. No infiltrate effusion or pneumothorax. Mediastinum and leticia: No mass or hematoma. No mediastinal or hilar lymphadenopathy. No esophageal abnormality. Heart: Heart is normal in size. No pericardial effusion. Mild coronary artery calcification. Aorta: No aortic aneurysm. Pulmonary arteries: Normal caliber. No evidence of pulmonary embolism on this study performed without angiographic technique. Chest wall soft tissues: Unremarkable. Diaphragm: Grossly intact. Liver: Normal. Gallbladder: Postcholecystectomy changes. Bile ducts: No biliary ductal dilation. Spleen: Normal. Pancreas: Normal. Adrenal glands: Normal. Kidneys and ureters: No hydronephrosis, stones, or suspicious masses. Simple appearing renal cysts are noted, requiring no dedicated follow up. Stomach, small bowel, and large bowel: No evidence of obstruction or inflammation. Probable small sliding hiatal hernia. Scattered left-sided colonic diverticulosis. Appendix: Normal-appearing. Peritoneum and retroperitoneum: No ascites or pneumoperitoneum. No omental or mesenteric lesions. Lymph nodes: Unchanged 0.7 cm short axis right pelvic sidewall (601:110). Unchanged 0.6 cm right inguinal node. Blood vessels: Moderate atherosclerotic vascular calcification. No aortic aneurysm. No evidence of venous thrombosis. Abdominal and pelvic wall: Partial diastases of the rectus abdominis. Bones: No acute abnormalities, no suspicious osseous lesions. IMPRESSION: No evidence of an acute process or metastases. Assessment & Plan Assessment & Plan (1) GERD (gastroesophageal reflux disease): Code(s): K21.9 - Gastro-esophageal reflux disease without esophagitis Category: Medical Qualifiers: Esophagitis presence: with esophagitis (2) Constipation: Code(s): K59.00 - Constipation, unspecified Category: Medical (3) Squamous cell carcinoma of anal canal: Code(s): C21.1 - Malignant neoplasm of anal canal Category: Medical Plan She continues to do well on her dicyclomine and famotidine. Due for colonoscopy repeat 2025. She is no longer taking senna/Colace this was just for a temporary time after her rectal cancer removal. She continues to follow-up with Oncology at [facility]. She says she had a CAT scan that no one told her the results. I find it in the [facility] website and tell her that it had no significant findings. She will be due for repeat colonoscopy in 2025 since her last was in 2022 and aside from the rectal cancer she also had 3 polyps. Return office visit in 6 months Medications: Refilled dicyclomine 10 mg PO QID 360 caps 1RF R10.9 - Unspecified abdominal pain famotidine 20 mg PO BID 180 tabs 2RF K21.9 - Gastro-esophageal reflux disease without esophagitis Coding Level of Care Code Est Pt Level 3 (13520) Diagnoses GERD (gastroesophageal reflux disease) K21.9 Esophagitis presence: with esophagitis Constipation K59.00 Squamous cell carcinoma of anal canal C21.1
[2025-02-11 09:44] VITALS: BP 136/74; PULSE 72; O2SAT 94; BMI 33.3
--- OUTSIDE RECORDS SUMMARY | 2025-02-11 10:25 | XMS_ITS | Encounter Summary ---
Author Organization [employer] Address [address] [facility] [address]t [place] [address] Care Team Providers Care Coiled Tubing Supervisor Name Role Phone Areli Elam Primary Care Provider [phone] Mathew Gatica PharmD Unavailable [phone] Reason for Visit * Reason Onset Date Comments Call Back Request 03/07/2023 Encounter Details Date Type Department Care Team (Late st Contact Info) Description 03/07/2023 Telephone [facility] [address] [place], [place] [phone] Areli Elam ANP [address] [place], [place] [phone] Call Back Request Social History Tobacco Use [...] answer phone. Vahe is not on HIPAA (curriculum writer did not provide any information/DX). Vahe is requesting a call back tomorrow (03/08) on his phone so he can make a conference call with pt. Please contact Vahe at [phone] documented in this encounter Plan of Treatment Upcoming Encounters Date Type Department Care Team (Late st Contact Info) Description 04/11/2025 11:00 AM EST Medication Management [facility] [address] [place] [phone] Mathew Gatica, PharmD [address] [place] [address] 04/17/2025 10:30 AM EST Office Visit [facility] [address] [place] [phone] Areli Elam, ANP [address] [place] [address] documented as of this encounter Visit Diagnoses Not on filedocumented in this encounter Additional Health Concerns Assessment Noted Time PHQ-9 Depression Total Score: 0 11/01/19 23 9:18 AM EDT documented as of this encounter Care Teams Coiled Tubing Supervisor Relationship Specialty Start Date End Date Areli Elam ANP [address] [place] [address] PCP - General Family Medicine 02/06/20 Mathew Gtaica PharmD [address] [place] [address] Pharmacist Internal Medicine 09/22/23 documented as of this encounter
--- OUTSIDE RECORDS SUMMARY | 2025-02-11 10:25 | XMS_ITS | Encounter Summary ---
Author Organization [employer] Address [address] [facility] 7t [place] [address] Care Team Providers Care Reconstructive Surgeon Name Role Phone Areli Elam Primary Care Provider [phone] Mathew Gatica PharmD Unavailable [phone] Reason for Visit * Reason Onset Date Comments Med Refill Appointment Request 04/29/2023 Encounter Details Date Type Department Care Team (Late st Contact Info) Description 04/29/2023 Refill [facility] [address] [place], [place] [phone] Areli Elam ANP [address] [place], [place] [phone] Gastroesophageal reflux disease, unspecified whether esophagitis present [...] Description 04/11/2025 11:00 AM EST Medication Management [facility] [address] [place] [phone] Mathew Gatica, PharmD [address] [place] [phone] 04/17/2025 10:30 AM EST Office Visit [facility] [address] [place] [address] Areli Elam ANP [address] [place] [address] documented as of this encounter Visit Diagnoses Diagnosis Gastroesophageal reflux disease, unspecified whether esophagitis present documented in this encounter Additional Health Concerns Assessment Noted Time PHQ-9 Depression Total Score: 0 11/01/19 23 9:18 AM EDT documented as of this encounter Care Teams Reconstructive Surgeon Relationship Specialty Start Date End Date Areli Elam ANP [address] [place] [phone] PCP - General Family Medicine 02/06/20 Mathew Gatica, PharmD [address] [place] [address] Pharmacist Internal Medicine 09/22/23 documented as of this encounter
--- OUTSIDE RECORDS SUMMARY | 2025-02-11 10:25 | XMS_ITS | Encounter Summary ---
Author Organization [employer] Address [address] [facility] 7t [place] [address] Care Team Providers Care Yacht Master Name Role Phone Areli Elam Primary Care Provider [phone] Mathew Gatica PharmD Unavailable [phone] Reason for Visit * Reason Comments Med Refill Encounter Details Date Type Department Care Team ([facility] st Contact Info) Description 01/08/2023 Refill [facility] [address] [place], [place] [phone] Areli Elam ANP [address] [place] [address] Diabetic 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 ([facility]) Social History Tobacco Use Types Packs/Day Years [...] Description 04/11/2025 11:00 AM EST Medication Management [address] [address] Mathew Gatica, Peter [address] [place] [phone] 04/17/2025 10:30 AM EST Office Visit [address] [address] Areli Elam ANP [address] [place] [phone] documented as of this encounter Visit Diagnoses Diagnosis Diabetic 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 (HCC) documented in this encounter Additional Health Concerns Assessment Noted Time PHQ-9 Depression Total Score: 0 11/01/19 23 9:18 AM EDT documented as of this encounter Care Teams Yacht Master Relationship Specialty Start Date End Date Areli Elam ANP [address] [place] [address] PCP - General Family Medicine 02/06/20 Mathew Gatica, PharmD [address] [place] [phone] Pharmacist Internal Medicine 09/22/23 documented as of this encounter
--- OUTSIDE RECORDS SUMMARY | 2025-02-11 10:25 | XMS_ITS | Encounter Summary ---
Author Organization [employer] Address [address] [facility] 7t [place] [address] Care Team Providers Care Trade Show Specialist Name Role Phone Areli Elam Primary Care Provider [phone] Mathew Gatica PharmD Unavailable [phone] Reason for Visit * Reason Comments Med Refill Encounter Details Date Type Department Care Team ([facility] st Contact Info) Description 01/09/2024 Refill [facility]INE [address] [place], [place] [phone] Areli Elam ANP [address] [place] [address] Diabetic 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 ([facility]) Social History Tobacco Use Types [...] Description 04/11/2025 11:00 AM EST Medication Management [facility] [address] [place] [phone] Mathew Gatica, PharmD [address] [place] [address] 04/17/2025 10:30 AM EST Office Visit [facility] [address] [place] [phone] Areli Elam ANP [address] [place] [address] documented as of this encounter Goals Goal Patient Goal Type Associated Problems Recent Progress Patient-Stated? Author Blood Pressure < 140/90 Blood Pressure 132/64(2024 11:20 AM EDT) No Mathew Gatica, PharmDaniela Hemoglobin A1c < 7 Result Component 8.2( 11:06 AM EDT) No Mathew Gatica, Peter Note: Goal of 8% may be reasonable given patient's age, history of Cancer, HTN, CKD, CAD documented as of this encounter Visit Diagnoses Diagnosis Diabetic 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 (HCC) documented in this encounter Additional Health Concerns Assessment Noted Time PHQ-9 Depression Total Score: 0 11/16/19 24 9:38 AM EDT documented as of this encounter Care Teams Trade Show Specialist Relationship Specialty Start Date End Date Areli Elam ANP [address] [place] [address] PCP - General Family Medicine 02/06/20 Mathew Gatica, Peter [address] [place] [address] Pharmacist Internal Medicine 09/22/23 documented as of this encounter
--- OUTSIDE RECORDS SUMMARY | 2025-02-11 10:25 | XMS_ITS | Encounter Summary ---
Author Organization [employer] Address [address] [facility] 7t [place] [address] Care Team Providers Care Speech Language Assistant Name Role Phone Areli Elam Primary Care Provider Mathew Gatica PharmD Unavailable [phone] Reason for Visit * Reason Onset Date Comments Call Back Request 03/07/2023 Encounter Details Date Type Department Care Team (Late st Contact Info) Description 03/07/2023 Telephone [facility] [address] [place], [place] [phone] Areli Elam ANP [address] [place], [place] [phone] Call Back Request Social History Tobacco Use [...] from pt returning call. Please contact at [phone] Gabonese * Telephone Encounter - JIN Alva - [...] Description 04/11/2025 11:00 AM EST Medication Management [facility] [address] [place] [phone] Mathew Gatica, Peter [address] [place] [address] 04/17/2025 10:30 AM EST Office Visit [facility] [address] [place] [phone] Areli Elam ANP [address] [place] [phone] documented as of this encounter Visit Diagnoses Not on filedocumented in this encounter Additional Health Concerns Assessment Noted Time PHQ-9 Depression Total Score: 0 11/01/19 23 9:18 AM EDT documented as of this encounter Care Teams Speech Language Assistant Relationship Specialty Start Date End Date Areli Elam ANP [address] [place] [phone] PCP - General Family Medicine 02/06/20 Mathew Gatica, Peter [address] [place] [phone] Pharmacist Internal Medicine 09/22/23 documented as of this encounter
--- OUTSIDE RECORDS SUMMARY | 2025-02-11 10:26 | XMS_ITS | Encounter Summary ---
Author Organization [employer] Address [address] [facility] 7t [place] [address] Care Team Providers Care Internet Manager Name Role Phone Areli Elam Primary Care Provider [phone] Mathew Gatica PharmD Unavailable [phone] Reason for Visit * Reason Comments Med Change Request Encounter Details Date Type Department Care Team ([facility] st Contact Info) Description 06/30/2023 Refill [facility] [address] [place], [place] [phone] Areli Elam ANP [address] [place] [address] Non-seasonal allergic rhinitis, unspecified trigger Social History [...] Description 04/11/2025 11:00 AM EST Medication Management [address] [address] Mathew Gatica, PharmDaniela [address] [place] [address] 04/17/2025 10:30 AM EST Office Visit [address] [address] Areli Elam ANP [address] [place] [phone] documented as of this encounter Visit Diagnoses Diagnosis Non-seasonal allergic rhinitis, unspecified trigger documented in this encounter Additional Health Concerns Assessment Noted Time PHQ-9 Depression Total Score: 0 11/01/19 23 9:18 AM EDT documented as of this encounter Care Teams Internet Manager Relationship Specialty Start Date End Date Areli Elam ANP [address] [place] [address] PCP - General Family Medicine 02/06/20 Mathew Gatica, PharmD [address] [place] [phone] Pharmacist Internal Medicine 09/22/23 documented as of this encounter
--- OUTSIDE RECORDS SUMMARY | 2025-02-11 10:26 | XMS_ITS | Clinical Summary ---
Author Organization [email or web address] Address [address] [facility] 7[address] [place] [address] Care Team Providers Care Hiv Cts Specialist Name Role Phone Ildefonso Darden Primary Care Provider [phone] Mathew Gatica PharmD Unavailable [phone] Allergies Active Allergy Reactions Criticality Noted Date [...] hours as needed for pain or fever Active calcium carbonate (Tums) 500 MG chewable tablet CHEW 1 TABLET BY MOUTH TWICE DAILY Active dilTIAZem CD (Cardizem CD) 180 MG 24 hr capsule TAKE 1 CAPSULE BY MOUTH ONCE DAILY Active FreeStyle lancets TEST BLOOD SUGARS DAILY Active melatonin tablet TAKE 1 TABLET BY MOUTH AT BEDTIME IF NEEDED FOR SLEEP Active sertraline (Zoloft) 100 MG tablet Take 200 mg by mouth in the morning. Active famotidine (Pepcid) 20 MG tabletIndicatio ns:Gastroesopha geal reflux disease, unspecified whether esophagitis present TAKE 1 TABLET BY MOUTH TWICE A DAY NEEDED FOR ACID REFLUX 40 tablet 024 Active Blood Glucose Monitoring Suppl (FreeStyle Lite) w/Device kitIndications: Hyperglycemia due to diabetes mellitus (HCC) 1 each Once per day. Use to check blood sugar TID 1 kit 024 Active dicyclomine (Bentyl) 10 MG capsule Take 10 mg by mouth 4 times daily. 024 Active lisinopril (Prinivil) 10 MG tabletIndicatio ns:Primary hypertension Take 1 tablet (10 mg) by mouth Once per day. 30 tablet 2 024 Active apixaban (Eliquis) 5 MG tablet Take 5 mg by mouth 2 times daily. Active Ventolin HFA 108 (90 Base) MCG/ACT inhalerIndicati ons:Chronic obstructive pulmonary disease, unspecified COPD type (CMS/HCC) ([facility]) INHALE 2 PUFFS EVERY 6 HOURS IF NEEDED FOR WHEEZING. 18 g 5 024 Active rosuvastatin (Crestor) 40 MG tabletIndicatio ns:Diabetic 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 (HCC) TOME PATTI TABLETA TODOS LOS DÍAZ EN LA MANANA 90 tablet 3 024 Active lidocaine (Lidoderm) 5 % patchIndication s:Left hip pain Apply 1 patch topically Once per day. Remove & discard patch within 12 hours or as directed by MD. 30 patch 2 024 Active metFORMIN XR (Glucophage-XR) 500 MG 24 hr tabletIndicatio ns:Diabetic 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 (HCC) TAKE 2 TABLETS BY MOUTH TWICE DAILY WITH BREAKFAST AND EVENING MEAL 360 tablet 3 025 Active albuterol (2.5 MG/3ML) 0.083% nebulizer solutionIndicat ions:Acute cough USE 1 VIAL VIA NEBULIZER 4 TIMES A DAY NEEDED FOR SHORTNESS OF BREATH OR WHEEZING 75 mL 3 025 Active nystatin (Mycostatin) creamIndication s:Intertrigo Apply topically if needed in the morning and at bedtime (rash). 30 g 025 2025 Active Continuous Glucose Grinder Chipper (FreeStyle Vicky 3 [place]) deviceIndicatio ns:Diabetic 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 (HCC) 1 each Once per day. Use as directed for CGM 1 each Active Continuous Glucose Sensor (FreeStyle Vicky 3 Plus Sensor) miscIndications :Diabetic 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 (HCC) 1 each every 15 days. Apply 1 every 15 days as directed for CGM 2 each Active glucose blood (FreeStyle Precision Jay Test) test stripIndication s:Diabetic 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 ([facility]) Use to test blood sugar 4 times daily in case of CGM failure or extremes of BG 100 each 025 2025 Active ezetimibe (Zetia) 10 MG tablet TAKE 1 TABLET BY MOUTH EVERY DAY 90 tablet 3 Active glucose 4 g chewable tabletIndicatio ns:Type 2 diabetes mellitus without complication, with long-term current use of insulin ([facility]) Chew 4 tablets (16 g) if needed for low blood sugar. 50 tablet 5 025 2025 Active cholecalciferol (D3-1000) 25 MCG (1000 UT) capsule TAKE 1 CAPSULE BY MOUTH EVERY MORNING 90 capsule 1 Active Alcohol Swabs (CVS Prep) 70 % padsIndications :Hyperglycemia due to diabetes mellitus ([facility]) USE 1 EACH IF NEEDED (TO CLEAN SKIN). 100 each Active insulin degludec (Tresiba FlexTouch) 100 UNIT/ML injectionIndica tions:Type 2 diabetes mellitus without complication, with long-term current use of insulin ([facility]) Inject 12 Units under the skin at bedtime. 15 mL 3 Active pen needle 32G x 4 mm miscIndications :Type 2 diabetes mellitus without complication, with long-term current use of insulin ([facility]) Use three times daily with insulin as directed 100 each 5 025 2025 Active insulin lispro (HumaLOG KWIKPEN) 100 UNIT/ML injectionIndica tions:Type 2 diabetes mellitus without complication, with long-term current use of insulin ([facility]) Inject 4 units subcutaneously before breakfast and before dinner. 15 mL 3 025 Active FREESTYLE LITE test stripIndication s:Type 2 diabetes mellitus with chronic kidney disease, without long-term current use of insulin, unspecified CKD stage ([facility]) USE TO TEST ONCE DAILY 50 strip 5 025 Active fluticasone (Flonase) 50 MCG/ACT nasal sprayIndication s:Nasal congestion SPRAY 1 TO 2 SPRAYS INTO EACH NOSTRIL EVERY DAY NEEDED IN THE MORNING AND AT BEDTIME FOR RHINITIS OR ALLERGIES. SHAKE GENTLY. BEFORE FIRST USE, PRIME PUMP. AFTER USE, CLEAN TIP AND REPLACE CAP. 48 mL 025 Active glipiZIDE XL (Glucotrol XL) 5 MG 24 hr tabletIndicatio ns:Diabetic 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 (HCC) 2 tabs in AM and 1 tab with dinner. Do not crush, chew, or split. 90 tablet 2 025 Active ondansetron (Zofran) 4 MG tabletIndicatio ns:Nausea Take 1-2 tabs as needed for nausea 20 tablet 025 Active loratadine (Claritin) 10 MG tabletIndicatio ns:Non-seasonal allergic rhinitis, unspecified trigger TAKE 1 TABLET BY MOUTH EVERY DAY IF NEEDED FOR ALLERGIES 90 tablet 1 025 Active loratadine (Claritin) 10 MG tabletIndicatio ns:Non-seasonal allergic rhinitis, unspecified trigger TAKE 1 TABLET BY MOUTH EVERY DAY IF NEEDED FOR ALLERGIES 90 tablet 1 025 2024 Discontinued Active Problems Problem Noted Date Diagnosed Date Class 2 obesity 09/18/2023 Type 2 diabetes mellitus wit hout complication, with long-term current use of insulin 08/18/2023 Renal cyst 08/18/2023 Cancer related pain 08/17/2023 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 Biopsy came back + for anal cancer. Following w/ Davonte Flores, and referred to [facility] Dr. Oleary radiation therapy. She had [...] This has been scheduled for 05/11 at [facility]. She is a candidate for combined modality therapy with radiation along with chemotherapy with mitomycin/fluoropyrimidine. Will treat with mitomycin 12 mg per m2 IV bolus day 1 and 29 along with capecitabine 825 mg per m2 b.i.d. Monday through Monday on the days that she receives RT. A referral has been made for Dr. Oleary from radiation therapy at [facility]. She tells me she lives nearby and so would be convenient for her to go there Abnormal nuclear cardiac imaging test 10/31/2022 BRAYAN (acute kidney injury) 10/31/2022 Babesiasis 10/31/2022 Colon cancer screening 10/31/2022 Constipation 10/31/2022 Family history of polyps in the colon 10/31/2022 Osteopenia 10/31/2022 Thoracic back pain 10/31/2022 Vitamin D deficiency 10/31/2022 Assessment & Plan (11/08/2022 5:27 PM EDT): Last Vit D 59.1 ng/mL in Dec 2021 Repeat Vit D level to determine if appropriate dose of supplementation (if applicable) Stage 3a chronic kidney disease (CMS/HCC) 2022 Bilateral adhesive capsulitis of shoulders 01/28 Overview [...] adhesive capsulitis. Stage 3b chronic kidney disease ([facility]) 2021 Assessment & Plan (11/08/2022 5:29 PM EDT): BRAYAN on CKD Baseline Cr around 1.2 mg/dL Last Cr 1.55 mg/dL on 10/28/22 Repeat ordered today May resume metformin Encouraged to continue with good hydration and avoid nephrotoxic agents Follow up with Nephrology - Dr. Beavers - as scheduled CAD (coronary artery disease) 12/08/2021 Paroxysmal atrial fibrillation ([facility]) 021 Diabetic nephropathy associa darby with type 2 [...] kidney disease) stage 3, GFR 30-59 ml/min (CMS/[facility]) 10/31/2022 11/08/2022 CKD (chronic kidney disease) 10/31/2022 [...] Encounters Date Type Department Care Team Description 01/29/2025 Telephone [facility] [place] [address] Ildefonso Darden ANP April recall 01/26/2025 Refill [facility] [place] [address] Ildefonso Darden ANP Non-seasonal allergic rhinitis, unspecified trigger 01/10/2025 Travel 12/13/2024 11:00 AM EDT Office Visit [facility] [place] [address] Ildefonso Darden ANP Diabetic 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 ([facility]) (Primary Dx); Nausea 12/13/2024 Travel 12/12/2024 Telephone [facility] [place] [address] Ildefonso Darden ANP chart prep 12/10/2024 Refill [facility] [place] [address] Ildefonso Darden ANP Nasal congestion; Diabetic 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 ([facility]/HCC) 11/28/2024 Refill [facility] [place] [address] Ildefonso Darden ANP Type 2 diabetes mellitus with chronic kidney disease, without long-term current use of insulin, unspecified CKD stage ([facility]) 11/21/2024 1:00 PM EDT Telemedicine [facility] [place] [address] Mathew Gatica, PharmD Type 2 diabetes mellitus without complication, with long-term current use of insulin ([facility]) (Primary Dx) 11/14/2024 Travel from Last 3 Months Immunizations Immunization Administration Dates Next Due Influenza, IIV3, injectable 11/30/2010 Influenza, Unspecified 11/30/2010 Flo Water SARS-CoV-2 Vaccination 06/17/2020 Pfizer Covid-19 Vaccine 12+ 05/08/2023 Pneumococcal Conjugate PCV 13 07/01/2021 Pneumococcal Conjugate PCV 20 05/08/2023 Pneumococcal Polysaccharide PPSV23 11/23/2007 RSV Bivalent 02/13/2024 TD (adult), 2 Lf tetanus tox oid, preservative free, adsorbed 09/14/2007 Td (adult), 5 Lf tetanus tox oid, preservative free, adsorbed 09/27/2016 Tdap 05/14/2020 Zoster, Recombinant 07/15/2024,11/16/2023 Family History Medical History Relation Name Comments [...] Answer Date Recorded Patient Health Questionnaire-9 Score 4 12/13/2024 Patient Health Questionnaire-9 Score 4 12/13/2024 Last PHQ-9: Questionnaire Data Not on file 0 12/13/2024 Housing Stability Answer Date Recorded What is your housing situation today? I do not have housing (Staying with others, in a hotel, in a skilled nursing, living outside on the street, on a beach, in a car, or in a park 12/13/[address] you li ve. Do you have problems with any of the following? None of the above 12/13/2024 Food Insecurity Answer Date Recorded Within the past 12 months, y ou worried that your food would run out before you got money to buy more: Never True 12/13/2024 Within the past 12 months,th e food you bought just didn't last and you didn't have enough money to get more: Never True 03/2025 Transportation Answer Date Recorded In the past 12 months, has l ack of transportation kept you from medical appts, meetings, work or from getting things needed for daily living? No 12/13/2024 Utilities Answer Date Recorded In the past 12 months, has t he electric, gas, oil or water company threatened to shut off services in your home? No 12/13/2024 Depression Answer Date Recorded Patient Health Questionnaire-2 Score 1 12/13/2024 Internet Access Answer Date Recorded Internet Access Q1 Yes 12/13/2024 Internet Access Q2 Not on file 12/13/2024 Comments Unknown Sex and Gender Information Value Date Recorded Sex Assigned at Female 01/31/2022 10:15 AM EDT Legal Sex Female 10:15 AM EDT Gender Identity Female 01/31/2022 10:15 AM EDT Sexual Orientation Choose not to disclose 2021 10:15 AM EDT Last Filed Vital Signs Vital Sign Reading Time Taken Comments Blood Pressure 132/64 01/10/2025 11:20 AM EDT Pulse 70 01/10/2025 11:20 AM EDT Temperature 36.7 C (98.1 F) 12/13/2024 11:05 AM EDT Respiratory Rate 20 12/13/2024 11:05 AM EDT Oxygen Saturation 96% 06/17/2024 10:42 AM EDT Inhaled Oxygen Concentration - - Weight 86 kg (189 lb 9 oz) 12/13/2024 11:05 AM E DT Height 160 cm (5' 3 ) 12/13/2024 11:05 AM EDT Body Mass Index 33.58 12/13/2024 11:05 AM EDT Plan of Treatment Upcoming Encounters Date Type Department Care Team (Late st Contact Info) Description 04/11/2025 11:00 AM EST Medication Management [facility] [address] [place] [phone] Mathew Gatica, PharmD [address] [place] [address] 04/17/2025 10:30 AM EST Office Visit [facility] [address] [place] [phone] Ildefonso Darden, ANP [address] [place] [address] Health Maintenance Due Date Last Done Comments CT Colonography 1960 FIT DNA/Cologuard 1960 FIT 1960 FOBT 1960 Sigmoidoscopy 1960 COVID-19 Vaccine ( season) 2024 02/13/2024, 05/08/2023, 05/11/2021, Additional history exists Diabetes: Foot Exam 02/15/2025 02/16/2024, 02/16/2024, 02/16/2024, Additional history exists Diabetes: Hemoglobin A1C 03/14/2025 025, 09/17/2024, 06/17/2024, Additional history exists Mammogram 04/15/2025 04/15/2024, 02/02, 02/10/2022, Additional history exists Alcohol/Substance Use Screening 06/17/2025 06/17/2024 Lipid Panel 10/18/2025 10/18/2024, 11/01, 04/20/2022, Additional history exists Colonoscopy 11/09/2025 11/09/2020 Colorectal Cancer Screening 11/09/2025 Eye Exam 11/15/2025 11/16/2023 Depression Screening 12/13/2025 12/13/2024, 12/14/19 25 SDOH Screening 12/13/2025 12/13/2024 Tobacco Screening 12/13/2025 12/13/2024 DTaP/Tdap/Td Vaccines (2 - Td or Tdap) 05/14/2030 05/14/2020, 09/27/2016, 09/14/2007 Influenza Vaccine Discontinued 11/30/2010, 11/30/2010 Pneumococcal Vaccine: 50+ Years Completed 05/08/2023, 07/01/2021, 11/23/2007 RSV Patients and Patients Aged 60 years [...] patient's age to complete this topic Meningococcal B Vaccine Aged Out No l onger eligible based on patient's age to complete [...] 132/64(2024 11:20 AM EDT) No Mathew Gatica, Peter Hemoglobin A1c < 7 Result Component 8.2( 11:06 AM EDT) No Mathew Gatica PharmD Note: Goal of 8% may be reasonable given patient's age, history of Cancer, HTN, CKD, CAD Procedures Procedure Name Priority Date/Time Associated Diagnosis Comments POCT GLYCATED HEMOGLOBIN, TOTAL Routine 12/13/2024 11:06 AM EDT Diabetic 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 (CMS/HCC) POCT GLUCOSE Routine 12/13/2024 11:06 AM EDT Diabetic 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 (CMS/HCC) LIPID PANEL, STANDARD Routine 10/18/2024 8:35 AM EDT HEPATITIS C AB W/REFL TO HCV RNA, QN, PCR Routine 06/17/2024 12:04 PM EDT Screening examination for STI BI MAMMOGRAM SCREENING TOMOSYNTHESIS BILATERAL Routine 04/15/2024 9:40 AM EST HM COLONOSCOPY Routine 11/09/2020 from Last 3 Months or Most Recently Relevant to Health Maintenance Results * (ABNORMAL) POCT Hgb A1c (12/13/2024 11:06 AM EDT) Hemoglobin A1C 8.2(A) 4.0 - 5.7 % QC Media Lot # [id number] Lot# Expiration Date [id number] Blood 12/13/2024 11:0 6 AM EDT [facility] POINT OF CARE TEST ENTER/EDIT OR DERABLES Final Result * POCT Glucose (12/13/2024 11:06 AM EDT) Glucose Blood, POC 162 60 - 200 mg/dL QC Media Lot # [id number] Lot# Expiration Date [id number] Blood Capillary blood specimen / Unknown 12/13/2024 11:06 AM EDT us Ildefonso Darden ANP POINT OF CARE TEST ENTER/EDIT OR DERABLES Final Result * Lipid Panel, Standard (10/18/2024 8:35 AM EDT) Triglycerides 127 <150 mg/dL [facility] Comment:Desirable Triglyceri de: less than 150 mg/dLBorderline High Triglyceride 150-199 mg/dLHigh Triglyceride: 200-499 mg/dLVery High Triglyceride: greater than or equal to 5OO mg/dL Cholesterol 119 <200 mg/dL [facility] Comment:Desirable Cholestero l: less than 200 mg/dLBorderline High Cholesterol: 200-239 mg/dLHigh Cholesterol: greater than 239 mg/dL LDL Cholesterol Calculated 41 <100 mg/dL [facility] Comment:Desirable LDL: less than 100 mg/dLNear Optimal/Above Optimal LDL: 110- 129 mg/dLBorderline High LDL: 130-159 mg/dLHigh LDL: 160-189 mg/dLVery High LDL: greater than or equal to 190 mg/dL HDL Cholesterol 53 >40 mg/dL [facility] Comment:Desirable HDL: great er than 40 mg/dL Note: This HDL assay may give artificially low results in patients with liver disease. 10/18/2024 8:35 AM EDT 10/18/2024 11:16 AM EDT us Ildefonso Darden ANP LAB BLOOD ORDERABLES Final Resul t [facility] [address] [place] [address] [phone] * Hepatitis C Antibody with Reflex to HCV, RNA, Quantitative, Real-Time PCR (06/17/2024 12:04 PM EDT) Hepatitis C Antibody Nonreactive Nonreactive [facility] Comment:Antibodies to HCV no t detected; does not exclude early acuteHCV infection. Blood Venous blood specimen / Unknown 06/17/2024 12:04 PM EDT 06/17/2024 1:14 PM EDT Ildefonso Darden ANP LAB BLOOD ORDERABLES Final Resul t [facility] [address] [place] [address] [phone] * BI Mammogram Screening Tomosynthesis Bilateral (04/15/2024 9:40 AM EST) Anatomical Region Laterality Modality Breast Bilateral Mammography 04/15/2024 9:40 AM EST Narrative 04/23/2024 12:46 PM EST [facility] [address] [place] [address] Mammography Report Signed Patient: Zee Lara MR#: [id number] : 1960 Acct:[id number] Age/Sex: 63 / F ADM Date: 04/15/24 Loc: HO.MAMMO Attending Dr: Ildefonso Darden NP Ordering Physician: ILDEFONSO DARDEN NP Results: 1Negative Date of Service: 04/15/24 Follow Up: 1 Year From Orig inal Mammogram Procedure(s): MM tomosynthesis screening BI Accession Number(s): [id number] cc: ILDEFONSO DARDEN NP EXAMINATION: MM SCREENING [...] Lees DO in OV> 04/23/24 1243 DD/ TD/TT: 04/15/24 0955 Diamond Merchant: Procedure Note Donotuseinterpreter, Image - [facility]/23/20[facility] [address] [place] [address] Mammography Report Signed Patient: Frederic Lara#: [id number] : 9Acct:[id number] Age/Sex: 63 / FADM Date: 04/15/24 Loc: HO.MAMMO Attending Dr: Ildefonso Darden NP Ordering Physician: ILDEFONSO DARDEN NPResults: 1Negative Date of Service: 04/15/24Follow Up: 1 Year From Orig inal Mammogram Procedure(s): MM tomosynthesis screening BI Accession Number(s): [id number] cc: ILDEFONSO DARDEN NP EXAMINATION: MM SCREENING [...] Jessica Lees DO 04/23/2024 12:43 PM EST RP Dictated By: Jessica Lees DO Signed By: <Electronically signed by Jessica Lees DO in OV> 04/23/24 1243 DD/ TD/TT: 04/15/24 0955 Diamond Merchant: us Ildefonso ABDI IMJacek BI PROCEDURES Edited Result - Final * (ABNORMAL) Colonoscopy (11/09/2020) Colonoscopy Abnormal(A ) Normal us Historical Provider MD HEALTH MAINTENANCE Final Result from Last 3 Months or Most Recently Relevant to Health Maintenance Insurance [facility] [employer]ED OPTIONS (O D-SNP) Care Teams Hiv Cts Specialist Relationship Specialty Start Date End Date Ildefonso Darden ANP [address] [place] [address] PCP - General Family Medicine 02/06/20 Mathew Gatica, NancyD [address] [place] [address] Pharmacist Internal Medicine 09/22/23
--- OUTSIDE RECORDS SUMMARY | 2025-02-11 10:26 | XMS_ITS | Encounter Summary ---
Author Organization [employer] Address [address] [facility] 7t [place] [address] Care Team Providers Care Rn Hemodialysis Name Role Phone Areli Elam Primary Care Provider Mathew Gatica PharmD Unavailable [phone] Reason for Visit * Reason Comments Med Refill Encounter Details Date Type Department Care Team ([facility] st Contact Info) Description 06/18/2023 Refill [facility] [address] [place] [address] Lisset Cobian MD [address] [place] [address] Social History Tobacco Use Types Packs/Day Years [...] Description 04/11/2025 11:00 AM EST Medication Management [address] [address] Mathew Gatica, Peter [address] [place] [phone] 04/17/2025 10:30 AM EST Office Visit [address] [address] Areli Elam ANP [address] [place] [phone] documented as of this encounter Visit Diagnoses Not on filedocumented in this encounter Additional Health Concerns Assessment Noted Time PHQ-9 Depression Total Score: 0 11/01/19 23 9:18 AM EDT documented as of this encounter Care Teams Rn Hemodialysis Relationship Specialty Start Date End Date Areli Elam ANP [address] [place] [phone] PCP - General Family Medicine 02/06/20 Mathew Gatica, PharmD [address] [place] [phone] Pharmacist Internal Medicine 09/22/23 documented as of this encounter
--- OUTSIDE RECORDS SUMMARY | 2025-02-11 10:26 | XMS_ITS | Encounter Summary ---
Author Organization [employer] Address [address] [facility] 7t [place] [address] Care Team Providers Care Actimize Architect Name Role Phone Areli Elam Primary Care Provider Mathew Gatica PharmD Unavailable [phone] Reason for Visit * Reason Comments Med Refill Encounter Details Date Type Department Care Team ([facility] st Contact Info) Description 06/18/2023 Refill [facility] [address] [place], [place] [phone] Areli Elam ANP [address] [place] [address] Diabetic 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 ([facility]) Social History Tobacco Use Types Packs/Day Years [...] Description 04/11/2025 11:00 AM EST Medication Management [address] [address] Mathew Gatica, Peter [address] [place] [phone] 04/17/2025 10:30 AM EST Office Visit [address] [address] Areli Elam ANP [address] [place] [phone] documented as of this encounter Visit Diagnoses Diagnosis Diabetic 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 (HCC) documented in this encounter Additional Health Concerns Assessment Noted Time PHQ-9 Depression Total Score: 0 11/01/19 23 9:18 AM EDT documented as of this encounter Care Teams Actimize Architect Relationship Specialty Start Date End Date Areli Elam ANP [address] [place] [phone] PCP - General Family Medicine 02/06/20 Mathew Gatica, PharmD [address] [place] [phone] Pharmacist Internal Medicine 09/22/23 documented as of this encounter
--- OUTSIDE RECORDS SUMMARY | 2025-02-11 10:26 | XMS_ITS | Encounter Summary ---
Author Organization [employer] Address [address] [facility] [address] [place] [address] Care Team Providers Care Plant Physiology Teacher Name Role Phone Areli Elam Primary Care Provider [phone] Mathew Gatica PharmD Unavailable [phone] Reason for Visit * Reason Comments Med Refill Encounter Details Date Type Department Care Team ([facility] st Contact Info) Description 11/18/2023 Refill [facility] [address] [place] [address] Lisset Cobian MD [address] [place] [address] Social History Tobacco Use Types Packs/Day Years [...] is your housing situation today? I have isaoj raza 11/16/[address] you [...] Description 04/11/2025 11:00 AM EST Medication Management [facility] [address] [place] [phone] Mathew Gatica, Peter [address] [place] [phone] 04/17/2025 10:30 AM EST Office Visit [facility] [address] [place] [phone] Areli Elam ANP [address] [place] [address] documented as of this encounter Goals Goal Patient Goal Type Associated Problems Recent Progress Patient-Stated? Author Blood Pressure < 140/90 Blood Pressure 132/64(2024 11:20 AM EDT) No Mathew Gatica PharmD Hemoglobin A1c < 7 Result Component 8.2( [...] documented as of this encounter Care Teams Plant Physiology Teacher Relationship Specialty Start Date End Date Areli Elam ANP [address] [place] [address] PCP - General Family Medicine 02/06/20 Mathew Gatica PharmD [address] [place] [address] Pharmacist Internal Medicine 09/22/23 documented as of this encounter
== END 2025-02-11 10:11 | disposition home or self-care (01) ==
LOC: HO.HGI 09:29
PROVIDERS: PCP Nurse Practitioner Primary Care; Visit Provider Nurse Practitioner
DX: K21.9 Gastro-esophageal reflux disease without esophagitis (principal); K59.00 Constipation, unspecified; C21.1 Malignant neoplasm of anal canal
CPT/HCPCS: 99213

== ENCOUNTER → 2025-02-11 09:28 | Outpatient (BNVA) | payer OTHER, SELFPAY | PROVIDERS: PCP Nurse Practitioner Primary Care; Visit Provider Nurse Practitioner | DX: K21.9 Gastro-esophageal reflux disease without esophagitis (principal); K59.00 Constipation, unspecified; C21.1 Malignant neoplasm of anal canal; R10.9 Unspecified abdominal pain | CPT/HCPCS: 99212 ==